=== PATIENT | female | born 1970 | race American Indian/Alaskan Native ===

== ENCOUNTER 2019-10-17 20:34 | Inpatient (IN) | payer OTHER ==
[2019-10-17] MEDS ORDERED: ALBUTEROL 2.5 MG/3 ML NEBU IH ONE (20:38)
[2019-10-17] MEDS ORDERED: MAGNESIUM SULFATE 2 GM/50 ML BAG IV ONE (20:38)
[2019-10-17] MEDS ORDERED: IPRATROPIUM 0.02% NEBU 2.5 ML IH ONE ×2 (20:38→22:56)
--- NOTE | 2019-10-17 20:50 | Emergency Department Report ---
HPI - General Time Seen by Provider: 10/17/19 20:36 - HPI HPI: Room 22 The patient is a 49-year-old female presenting with a chief complaint of shortness of breath. The patient states she has been "sick" since 10/12/2019. The patient states her symptoms include a dry cough and rhinorrhea. Patient denies sick contacts. The patient states she had worsening shortness of breath which prompted her to call EMS tonight. Per EMS the patient was hypoxic in the 50s on room air. EMS reports they administered albuterol 5 mg and site Medrol [address] patient on a nonrebreather as a patient refused CPAP. Upon arrival to the ED the patient was hypoxic in the 70s. The patient was placed on BiPAP with improvement of her SPO2 to greater than 90% Location: [See above] Duration: [See above] Quality: [See above] Severity: [See above] Timing: [See above] Context: [See above] Modifying factors: [See above] Associated signs and symptoms: [see above] ED Past Medical Hx - Past Medical History Hx Hypertension: Yes - Surgical History Past Surgical History?: No - Family History Family history: no significant - Social History Smoking Status: Never Smoker Substance Use Type: None ED Review of Systems ROS: Stated complaint: CLAUDINE Other details as noted in HPI Comment: Unobtainable due to pts medical conditions Physical Exam - Physical Exam Physical Exam: GENERAL: The patient is well-developed well-nourished morbidly obese female lying on stretcher with obvious increased work of breathing. [] HEENT: Normocephalic. Atraumatic. Extraocular motions are intact. Patient has moist mucous membranes. NECK: Supple. Trachea midline CHEST/LUNGS: Wheezing. There is increased work of breathing HEART/CARDIOVASCULAR: Regular. There is tachycardia. There is no gallop rub or murmur. ABDOMEN: Abdomen is soft, nontender. Patient has normal bowel sounds. There is no abdominal distention. SKIN: There is no rash. There is no edema. There is no diaphoresis. NEURO: The patient is awake, alert, and oriented. The patient is cooperative. The patient has normal speech MUSCULOSKELETAL: There is no evidence of acute injury. ED Course - Reevaluation(s) Reevaluation #1: 10/17/19 21:14 Patient improved dramatically on BiPAP with SPO2 95% ED Medical Decision Making - Lab Data Result diagrams: 10/17/19 20:57 10/17/19 20:57 Laboratory Tests 10/17/19 10/17/19 20:57 20:57 WBC 4.0 L RBC 4.65 Hgb 11.6 Hct 36.4 MCV 78 L MCH 25 L MCHC 32 RDW 24.7 H Plt Count 178 Sodium 139 Potassium 3.5 L Chloride 99.2 Carbon Dioxide 26 Anion Gap 17 BUN 14 Creatinine 0.6 L Estimated GFR > 60 BUN/Creatinine Ratio 23 Glucose 147 H Calcium 7.9 L Total Bilirubin 0.20 AST 57 H ALT 22 Alkaline Phosphatase 67 Total Creatine Kinase 857 H CK-MB (CK-2) 2.6 CK-MB (CK-2) Rel Index 0.3 Troponin T < 0.010 NT-Pro-B Natriuret Pep 317.6 Total Protein 7.1 Albumin 3.0 L Albumin/Globulin Ratio 0.7 Flu swab pending - EKG Data -: EKG Interpreted by Me EKG shows normal: sinus rhythm Rate: tachycardia (115 bpm) - EKG Data When compared to previous EKG there are: previous EKG unavailable Interpretation: nonspecific ST-T wave emelia (T-wave inversion in lead aVL) - Radiology Data Radiology results: report reviewed (chest x-ray), image reviewed (chest x-ray) interpreted by me: Chest [id number], CHF [address] [address] XRay Report Signed Patient: ADRIANNA KELLER MR# : [id number] : 1970 Acct:[id number] Age/Sex: 49 / F ADM Date: 10/17/19 Loc: ED Attending Dr: Ordering Physician: CHERELLE HERMAN MD Date of Service: 10/17/19 Procedure(s): XR chest 1V ap Accession Number(s): [id number] cc: CHERELLE HERMAN MD Fluoro Time In Minutes: CHEST 1 VIEW INDICATION: shortness of breath. COMPARISON: None. FINDINGS: Support devices: None. Heart: Enlarged. Lungs/Pleura: There are predominantly perihilar diffuse bilateral pulmonary opacities. There are small effusions. IMPRESSION: 1. Probable congestive heart failure. Correlate clinically. Signer Name: Nir Queen MD Signed: 10/17/2019 8:58 PM Workstation Name: [id number] Transcribed By: SW Dictated By: Nir Queen MD Electronically Authenticated By: Nir Queen MD Signed Date/Time: 10/17/192057 DD/ 56 TD/TT: - Differential Diagnosis pneumonia, influenza, pulmonary edema Critical Care Time: Yes Critical care time in (mins) excluding proc time.: 30 Critical care attestation.: If time is entered above; I have spent that time in minutes in the direct care of this critically ill patient, excluding procedure time. ED Disposition Clinical Impression: Respiratory failure, Shortness of breath, Hypoxia, Pulmonary edema, Cough Disposition: DC-09 OP ADMIT IP TO THIS HOSP Is pt being admited?: Yes Does the pt Need Aspirin: No Condition: Serious Instructions: Pulmonary Edema (ED) Time of Disposition: 22:22 (hospitalist notified (Dr Elias))
[2019-10-17] MEDS: LORazepam 2 MG/ML VIAL IV PRN (20:54)
--- NOTE | 2019-10-17 21:02 | XRay Report ---
CHEST 1 VIEW INDICATION: shortness of breath. COMPARISON: None. FINDINGS: Support devices: None. Heart: Enlarged. Lungs/Pleura: There are predominantly perihilar diffuse bilateral pulmonary opacities. There are smal l effusions. IMPRESSION: 1. Probable congestive heart failure. Correlate clinically. Signer Name: Nir Queen MD Signed: 10/17/2019 8:58 PM Workstation Name: [id number]
[2019-10-17] MEDS ORDERED: FUROSEMIDE 40 MG/4 ML INJ IV ONE (21:13)
[2019-10-17 21:43] LABS: Hematocrit 36.4 % (30.3-42.9); Hemoglobin 11.6 gm/dl (10.1-14.3); Mean Corpuscular HGB Conc 32 % (30-34); Mean Corpuscular Volume 78 fl (79-97); Platelet Count 178 K/mm3 (140-440); Red Blood Count 4.65 M/mm3 (3.65-5.03)
[2019-10-17 21:44] LABS: Red Cell Distribution Width 24.7 % (13.2-15.2)
[2019-10-17 22:00] LABS: Creatine Kinase MB 2.6 ng/mL (0.0-4.0)
[2019-10-17 22:02] LABS: Alanine Aminotransferase 22 units/L (7-56); BUN/Creatinine Ratio 23; Blood Urea Nitrogen 14 mg/dL (7-17); Calcium 7.9 mg/dL (8.4-10.2); Hemolysis Index 30
[2019-10-17] MEDS ORDERED: MAGNESIUM HYDROXIDE (MOM) ORAL LIQD UDC PO PRN (22:47)
[2019-10-17] MEDS ORDERED: ONDANSETRON 4 MG/2 ML INJ IV PRN (22:47)
[2019-10-17 23:37] LABS: Anisocytosis 2+; Basophils % (Manual) 0 % (0.0-1.8); Eosinophils % (Manual) 0 % (0.0-4.3); Hypochromasia 1+; Total Cells Counted 100
--- NOTE | 2019-10-18 00:23 | History and Physical Report ---
History of Present Illness Date of examination: 10/17/19 Date of admission: 10/17/19 22:47 Chief complaint: Cough and congestion History of present illness: 49-year-old -[place]i female who presents to the emergency room today with shortness of breath. She indicates that she has been sick a few days before [place] having progressive shortness of breath, and chest and nasal congestion. She denies any fever or chills, she denies any chest pain. She den ies any recent travel and no sick contacts. She denies nausea vomiting. EMS was called today because of worsening shortness of breath patient was found to have a O2 saturation in the 50s. She was given some nebulizing treatments and steroid however she refused the CPAP machine. Upon arrival in the emergency room oxygen saturation was found to be in the 70s. Patient was subsequently placed on BiPAP with significant improvement in her oxygen saturation. Work-up in the emergency room however reveals that patient has pulmonary edema. Past History Past Medical History: hypertension, other (Morbid obesity, lymphedema) Past Surgical History: Other (Right wrist surgery in 1994) Social history: no significant social history Family history: cancer (Pancreatic cancer runs in the family), diabetes (Mother had diabetes mellitus, daughter also had diabetes mellitus) Medications and Allergies Allergies Allergy/AdvReac Type Severity Reaction Status Date / Time No Known Allergies Allergy Verified 10/17/19 20:40 Home Medications Medication Instructions Recorded Confirmed Last Taken Type Aspirin 325 mg PO DAILY 10/17/19 10/17/19 Unknown History Metoprolol 50 mg PO BID 10/17/19 10/17/19 Unknown History amLODIPine 10 mg PO DAILY 10/17/19 10/17/19 Unknown History Active Meds: Active Medications Albuterol (Proventil) 2.5 mg IH Q3HRT PRN PRN Reason: Shortness Of Breath Furosemide (Lasix) 40 mg IV BID@0600,1800 EDI Heparin Sodium (Porcine) (Heparin) 5,000 unit SUB-Q Q8HR EDI Lorazepam (Ativan) 1 mg IV ONCE PRN PRN Reason: Anxiety Last Admin: 10/17/19 20:54 Dose: 1 mg Documented by: Magnesium Hydroxide (Milk Of Magnesia) 30 ml PO Q4H PRN PRN Reason: Constipation Morphine Sulfate (Morphine) 2 mg IV Q4H PRN PRN Reason: Pain, Moderate (4-6) Ondansetron HCl (Zofran) 4 mg IV Q8H PRN PRN Reason: Nausea And Vomiting Sodium Chloride (Sodium Chloride Flush Syringe 10 Ml) 10 ml IV BID EDI Sodium Chloride (Sodium Chloride Flush Syringe 10 Ml) 10 ml IV PRN PRN PRN Reason: LINE FLUSH Review of Systems Respiratory: cough, shortness of breath Exam - Constitutional Vitals: Temp Pulse Resp BP Pulse Ox 98.9 F 100 H 24 122/64 95 10/17/19 20:57 10/17/19 23:28 10/17/19 23:28 10/17/19 23:28 10/17/19 23:28 General appearance: Present: no acute distress, well-nourished, obese - EENT Eyes: Present: PERRL, EOM intact ENT: hearing intact, clear oral mucosa, dentition normal - Neck Neck: Present: supple, normal ROM - Respiratory Respiratory effort: normal Respiratory: bilateral: rales - Cardiovascular Rhythm: regular Heart Sounds: Present: S1 & S2 - Extremities Extremities: no ischemia, pulses intact, pulses symmetrical, No edema, Full ROM Peripheral Pulses: within normal limits - Abdominal General gastrointestinal: Present: soft, non-tender, non-distended - Integumentary Integumentary: Present: clear, warm, dry - Musculoskeletal Musculoskeletal: strength equal bilaterally, right sided weakness - Psychiatric Psychiatric: appropriate mood/affect, intact judgment & insight, cooperative - Neurologic Neurologic: CNII-XII intact, moves all extremities Results - Labs CBC & Chem 7: 10/18/19 05:21 10/18/19 05:21 Labs: Abnormal lab results 10/17/19 10/17/19 10/17/19 Range/Units 20:57 20:57 Unknown WBC 4.0 L (4.5-11.0) K/mm3 MCV 78 L (79-97) fl MCH 25 L (28-32) pg RDW 24.7 H (13.2-15.2) % Seg Neuts % (Manual) 77.0 H (40.0-70.0) % Monocytes % (Manual) 9.0 H (0.0-7.3) % Lymphocytes # (Manual) 0.6 L (1.2-5.4) K/mm3 Potassium 3.5 L (3.6-5.0) mmol/L Creatinine 0.6 L (0.7-1.2) mg/dL Glucose 147 H (65-100) mg/dL Calcium 7.9 L (8.4-10.2) mg/dL AST 57 H (5-40) units/L Total Creatine Kinase 857 H (30-135) units/L Albumin 3.0 L (3.9-5) g/dL Influenza A (Rapid) Positive A (Negative) Assessment and Plan - Patient Problems (1) Pulmonary edema Current Visit: Yes Status: Acute Plan to address problem: Patient placed on diuretics. We will monitor inputs and outputs and also monitor daily weight. We will schedule patient for echocardiogram. We also request cardiology evaluation for possible new onset CHF. (2) Hypoxia Current Visit: Yes Status: Acute Plan to address problem: We will keep oxygen saturation greater or equal to 92%. Patient currently on BiPAP. (3) Respiratory failure Current Visit: Yes Status: Acute Plan to address problem: This is secondary to pulmonary edema. Patient will be closely monitored in the critical care unit. (4) DVT prophylaxis Current Visit: Yes Status: Acute Plan to address problem: Patient placed on subcutaneous heparin. (5) Full code status Current Visit: Yes Status: Acute
[2019-10-18 05:48] LABS: Hematocrit 39.8 % (30.3-42.9); Hemoglobin 12.6 gm/dl (10.1-14.3); Lymphocytes # (Auto) 0.4 K/mm3 (1.2-5.4); Lymphocytes % (Auto) 12.5 % (13.4-35.0); Mean Corpuscular HGB Conc 32 % (30-34); Mean Corpuscular Volume 80 fl (79-97); Monocytes # (Auto) 0.3 K/mm3 (0.0-0.8); Monocytes % (Auto) 7.9 % (0.0-7.3); Platelet Count 175 K/mm3 (140-440); Red Blood Count 5.01 M/mm3 (3.65-5.03)
[2019-10-18 05:50] LABS: Red Cell Distribution Width 24.3 % (13.2-15.2)
[2019-10-18] MEDS ORDERED: HEPARIN 5,000 UNIT/1 ML VIAL ONE ×3 (05:53→23:13)
[2019-10-18] MEDS ORDERED: FUROSEMIDE 40 MG/4 ML INJ ONE ×2 (05:53→19:19)
[2019-10-18] MEDS: HEPARIN 5,000 UNIT/1 ML VIAL SUB-Q SCH ×2 (06:00→14:05)
[2019-10-18] MEDS: FUROSEMIDE 40 MG/4 ML INJ IV SCH ×3 (06:00→19:22)
[2019-10-18 06:11] LABS: BUN/Creatinine Ratio 23; Blood Urea Nitrogen 16 mg/dL (7-17); Calcium 8.3 mg/dL (8.4-10.2); Hemolysis Index 15
[2019-10-18] MEDS ORDERED: ALBUTEROL 2.5 MG/3 ML NEBU IH ONE (08:45)
--- NOTE | 2019-10-18 08:57 | Progress Note ---
Assessment and Plan Assessment and plan: Patient is a 49 yo woman with a history of severe obesity BMI 93.6 (579 lbs), hypertension, lymphedema, functional quadriplegia and DEAN non compliant with CPAP who presents to [facility] ED with SOB and found to be hypoxic with pulse ox in the 50s. She was treated with BIPAP. * pCXR shows Probable congestive heart failure Acute hypoxic respiratory failure: treat with O2 via NIPPV, close to being intubated Sepsis Influenza A pneumonia positive: start treatment with Tamiflu, consulted ID, isolation Acute diastolic heart failure suspected: diuresis with iv lasix, consult Cardiology Extreme Obesity, BMI 93.6: supportive care, consult Choker Setter DVT ppx sq heparin full code History Interval history: Patient was seen and examined. Follow-up on current diagnosis of respiratory failure. Overnight uneventful as no events directly reported to me. Patient denies any chest pain, nausea/vomiting or severe headaches. Imaging, nursing note, chart, labs and old chart reviewed. Discussed with patient. Hospitalist Physical - Physical exam Narrative exam: Gen: ill appearing, bmi 93.6 Awake, Alert, Orientated HEENT: NCAT, EOMI, PERRL, OP Clear Neck: supple, no adenopathy, no thyromegaly, equiv JVD CVS/Heart: RRR, normal S1S2, pulses present bilaterally Chest/Lungs: diminished bs bilateral Symmetrical chest expansion, good air entry bilaterally GI/Abdomen: soft, NTND, good bowel sounds, no guarding or rebound /Bladder: no suprapubic tenderness, no CVA or paraspinal tenderness Extermity/Skin: ble edema MSK: FROM x 4 Neuro: CN 2-12 grossly intact, no new focal deficits Psych: calm - Constitutional Vitals: Temp Pulse Resp BP Pulse Ox 98.9 F 97 H 29 H 124/66 98 10/17/19 20:57 10/18/19 08:20 10/18/19 08:20 10/18/19 08:20 10/18/19 08:20 General appearance: Present: well-nourished, obese. Absent: no acute distress Results - Labs CBC & Chem 7: 10/18/19 05:21 10/18/19 05:21 Labs: Laboratory Last Values WBC 3.3 K/mm3 (4.5-11.0) L 10/18/19 05:21 RBC 5.01 M/mm3 (3.65-5.03) 10/18/19 05:21 Hgb 12.6 gm/dl (10.1-14.3) 10/18/19 05:21 Hct 39.8 % (30.3-42.9) 10/18/19 05:21 MCV 80 fl (79-97) 10/18/19 05:21 MCH 25 pg (28-32) L 10/18/19 05:21 MCHC 32 % (30-34) 10/18/19 05:21 RDW 24.3 % (13.2-15.2) H 10/18/19 05:21 Plt Count 175 K/mm3 (140-440) 10/18/19 05:21 Lymph % (Auto) 12.5 % (13.4-35.0) L 10/18/19 05:21 [place] % (Auto) 7.9 % (0.0-7.3) H 10/18/19 05:21 Eos % (Auto) 0.0 % (0.0-4.3) 10/18/19 05:21 Baso % (Auto) 1.0 % (0.0-1.8) 10/18/19 05:21 Lymph # 0.4 K/mm3 (1.2-5.4) L 10/18/19 05:21 [place] # 0.3 K/mm3 (0.0-0.8) 10/18/19 05:21 Eos # 0.0 K/mm3 (0.0-0.4) 10/18/19 05:21 Baso # 0.0 K/mm3 (0.0-0.1) 10/18/19 05:21 Add Manual Diff Complete 10/17/19 20:57 Total Counted 100 10/17/19 20:57 Seg Neutrophils % 78.6 % (40.0-70.0) H 10/18/19 05:21 Seg Neuts % (Manual) 77.0 % (40.0-70.0) H 10/17/19 20:57 Band Neutrophils % 0 % 10/17/19 20:57 Lymphocytes % (Manual) 14.0 % (13.4-35.0) 10/17/19 20:57 Reactive Lymphs % (Man) 0 % 10/17/19 20:57 Monocytes % (Manual) 9.0 % (0.0-7.3) H 10/17/19 20:57 Eosinophils % (Manual) 0 % (0.0-4.3) 10/17/19 20:57 Basophils % (Manual) 0 % (0.0-1.8) 10/17/19 20:57 Metamyelocytes % 0 % 10/17/19 20:57 Myelocytes % 0 % 10/17/19 20:57 Promyelocytes % 0 % 10/17/19 20:57 Blast Cells % 0 % 10/17/19 20:57 Nucleated RBC % Not Reportable 10/17/19 20:57 Seg Neutrophils # 2.6 K/mm3 (1.8-7.7) 10/18/19 05:21 Seg Neutrophils # Man 3.1 K/mm3 (1.8-7.7) 10/17/19 20:57 Band Neutrophils # 0.0 K/mm3 10/17/19 20:57 Lymphocytes # (Manual) 0.6 K/mm3 (1.2-5.4) L 10/17/19 20:57 Abs React Lymphs (Man) 0.0 K/mm3 10/17/19 20:57 Monocytes # (Manual) 0.4 K/mm3 (0.0-0.8) 10/17/19 20:57 Eosinophils # (Manual) 0.0 K/mm3 (0.0-0.4) 10/17/19 20:57 Basophils # (Manual) 0.0 K/mm3 (0.0-0.1) 10/17/19 20:57 Metamyelocytes # 0.0 K/mm3 10/17/19 20:57 Myelocytes # 0.0 K/mm3 10/17/19 20:57 Promyelocytes # 0.0 K/mm3 10/17/19 20:57 Blast Cells # 0.0 K/mm3 10/17/19 20:57 WBC Morphology Not Reportable 10/17/19 20:57 Hypersegmented Neuts Not Reportable 10/17/19 20:57 Hyposegmented Neuts Not Reportable 10/17/19 20:57 Hypogranular Neuts Not Reportable 10/17/19 20:57 Smudge Cells Not Reportable 10/17/19 20:57 Toxic Granulation Not Reportable 10/17/19 20:57 Toxic Vacuolation Not Reportable 10/17/19 20:57 Dohle Bodies Not Reportable 10/17/19 20:57 Pelger-Huet Anomaly Not Reportable 10/17/19 20:57 Krista Rods Not Reportable 10/17/19 20:57 Platelet Estimate Not Reportable 10/17/19 20:57 Clumped Platelets Not Reportable 10/17/19 20:57 Plt Clumps, EDTA Not Reportable 10/17/19 20:57 Large Platelets Not Reportable 10/17/19 20:57 Giant Platelets Not Reportable 10/17/19 20:57 Platelet Satelliting Not Reportable 10/17/19 20:57 Plt Morphology Comment Not Reportable 10/17/19 20:57 RBC Morphology Not Reportable 10/17/19 20:57 Dimorphic RBCs Not Reportable 10/17/19 20:57 Polychromasia Not Reportable 10/17/19 20:57 Hypochromasia 1+ 10/17/19 20:57 Poikilocytosis Not Reportable 10/17/19 20:57 Anisocytosis 2+ 10/17/19 20:57 Microcytosis Not Reportable 10/17/19 20:57 Macrocytosis Not Reportable 10/17/19 20:57 Spherocytes Not Reportable 10/17/19 20:57 Pappenheimer Bodies Not Reportable 10/17/19 20:57 Sickle Cells Not Reportable 10/17/19 20:57 Target Cells Not Reportable 10/17/19 20:57 Tear Drop Cells Not Reportable 10/17/19 20:57 Ovalocytes Not Reportable 10/17/19 20:57 Helmet Cells Not Reportable 10/17/19 20:57 [place] Bodies Not Reportable 10/17/19 20:57 [place] Rings Not Reportable 10/17/19 20:57 James Cells Not Reportable 10/17/19 20:57 Bite Cells Not Reportable 10/17/19 20:57 Crenated Cell Not Reportable 10/17/19 20:57 Elliptocytes Not Reportable 10/17/19 20:57 Acanthocytes (Spur) Not Reportable 10/17/19 20:57 Rouleaux Not Reportable 10/17/19 20:57 Hemoglobin C Crystals Not Reportable 10/17/19 20:57 Schistocytes Not Reportable 10/17/19 20:57 Malaria parasites Not Reportable 10/17/19 20:57 Alejandro Bodies Not Reportable 10/17/19 20:57 Hem Pathologist Commnt No 10/17/19 20:57 Sodium 144 mmol/L (137-145) 10/18/19 05:21 Potassium 4.2 mmol/L (3.6-5.0) 10/18/19 05:21 Chloride 99.4 mmol/L (98-107) 10/18/19 05:21 Carbon Dioxide 28 mmol/L (22-30) 10/18/19 05:21 Anion Gap 21 mmol/L 10/18/19 05:21 BUN 16 mg/dL (7-17) 10/18/19 05:21 Creatinine 0.7 mg/dL (0.7-1.2) 10/18/19 05:21 Estimated GFR > 60 ml/min 10/18/19 05:21 BUN/Creatinine Ratio 23 % 10/18/19 05:21 Glucose 167 mg/dL (65-100) H 10/18/19 05:21 Calcium 8.3 mg/dL (8.4-10.2) L 10/18/19 05:21 Total Bilirubin 0.20 mg/dL (0.1-1.2) 10/17/19 20:57 AST 57 units/L (5-40) H 10/17/19 20:57 ALT 22 units/L (7-56) 10/17/19 20:57 Alkaline Phosphatase 67 units/L (35-129) 10/17/19 20:57 Total Creatine Kinase 857 units/L (30-135) H 10/17/19 20:57 CK-MB (CK-2) 2.6 ng/mL (0.0-4.0) 10/17/19 20:57 CK-MB (CK-2) Rel Index 0.3 (0-4) 10/17/19 20:57 Troponin T < 0.010 ng/mL (0.00-0.029) 10/17/19 20:57 NT-Pro-B Natriuret Pep 317.6 pg/mL (0-450) 10/17/19 20:57 Total Protein 7.1 g/dL (6.3-8.2) 10/17/19 20:57 Albumin 3.0 g/dL (3.9-5) L 10/17/19 20:57 Albumin/Globulin Ratio 0.7 % 10/17/19 20:57 Influenza A (Rapid) Positive (Negative) A 10/17/19 Unknown Influenza B (Rapid) Negative (Negative) 10/17/19 Unknown Active Medications - Current Medications Current Medications: Generic Name Dose Route Start Last Admin Trade Name Freq PRN Reason Stop Dose Admin Albuterol 2.5 mg 10/17/19 22:47 Proventil IH Q3HRT PRN Shortness Of Breath Amlodipine Besylate 10 mg 10/18/19 10:00 Amlodipine PO DAILY [facility] Aspirin 325 mg 10/18/19 10:00 Aspirin PO DAILY [facility] Furosemide 40 mg 10/18/19 06:00 10/18/19 06:00 Lasix IV 40 mg BID@0600,1800 EDI Administration Heparin Sodium (Porcine) 5,000 unit 10/18/19 06:00 10/18/19 06:00 Heparin SUB-Q 5,000 unit Q8HR EDI Administration Lorazepam 1 mg 10/17/19 20:39 10/17/19 20:54 Ativan IV 1 mg ONCE PRN Administration Anxiety Magnesium Hydroxide 30 ml 10/17/19 22:47 Milk Of Magnesia PO Q4H PRN Constipation Metoprolol Tartrate 50 mg 10/18/19 10:00 Metoprolol PO BID [facility] Morphine Sulfate 2 mg 10/17/19 22:47 Morphine IV Q4H PRN Pain, Moderate (4-6) Ondansetron HCl 4 mg 10/17/19 22:47 Zofran IV Q8H PRN Nausea And Vomiting Sodium Chloride 10 ml 10/18/19 10:00 Sodium Chloride Flush Syringe 10 Ml IV BID EDI Sodium Chloride 10 ml 10/17/19 22:47 Sodium Chloride Flush Syringe 10 Ml IV PRN PRN LINE FLUSH
[2019-10-18] MEDS: ALBUTEROL 2.5 MG/3 ML NEBU IH PRN (09:23)
[2019-10-18] MEDS ORDERED: OSELTAMIVIR 75 MG CAP PO SCH (10:00)
[2019-10-18] MEDS ORDERED: ASPIRIN 325 MG TAB ONE (11:14)
[2019-10-18] MEDS ORDERED: METOPROLOL TARTRATE 50 MG TAB ONE ×2 (11:15→23:13)
[2019-10-18] MEDS ORDERED: amLODIPine 10 MG TAB ONE (11:15)
[2019-10-18] MEDS: METOPROLOL TARTRATE 50 MG TAB PO SCH (11:49)
[2019-10-18] MEDS: ASPIRIN 325 MG TAB PO SCH (11:49)
[2019-10-18] MEDS: OSELTAMIVIR 75 MG CAP PO SCH (11:50)
[2019-10-18] MEDS: amLODIPine 10 MG TAB PO SCH (11:50)
[2019-10-18 12:04] LABS: ABG Base Excess 4.5 mmol/L (-2.0-3.0); ABG HCO3 30.2 mmol/L (20.0-26.0); ABG Methemoglobin 0.4 % (0.0-1.5); ABG Oxygen Saturation 98.5 % (95.0-99.0); ABG PCO2 50.6 mm Hg; ABG PH 7.394 pH Units (7.350-7.450); ABG PO2 131.3 mm Hg (80.0-90.0)
--- NOTE | 2019-10-18 12:54 | Consultation ---
History of Present Illness Consult date: 10/18/19 Requesting physician: MAHENDRA ROWLAND Reason for consult: hypoxemia, other (pulmonary edema, extreme obesity) History of present illness: 49-year-old -[place] female who presents to the emergency room today with shortness of breath. She indicates that she has been sick a few days before [place] having progressive shortness of breath, and chest and nasal congestion. She denies any fever or chills, she denies any chest pain. She denies any recent travel and no sick contacts. She denies nausea vomiting. EMS was called today because of worsening shortness of breath patient was found to have a O2 saturation in the 50s. She was given some nebulizing treatments and steroid however she refused the CPAP machine. Upon arrival in the emergency room oxygen saturation was found to be in the 70s. Patient was subsequently placed on BiPAP with significant improvement in her oxygen saturation. She remains BIPAP dependant and I have been consulted for critical care management. Patient was seen and examined. Vitals, labs, medications, chart and imaging were reviewed. She is resting in bed on NIPPV Past History Past Medical History: hypertension, other (Morbid obesity, lymphedema) Past Surgical History: Other (Right wrist surgery in 1994) Social history: no significant social history Family history: cancer (Pancreatic cancer runs in the family), diabetes (Mother had diabetes mellitus, daughter also had diabetes mellitus) Medications and Allergies Allergies Allergy/AdvReac Type Severity Reaction Status Date / Time No Known Allergies Allergy Verified 10/17/19 20:40 Home Medications Medication Instructions Recorded Confirmed Last Taken Type Aspirin 325 mg PO DAILY 10/17/19 10/17/19 Unknown History Metoprolol 50 mg PO BID 10/17/19 10/17/19 Unknown History amLODIPine 10 mg PO DAILY 10/17/19 10/17/19 Unknown History Active Meds: Active Medications Albuterol (Proventil) 2.5 mg IH Q3HRT PRN PRN Reason: Shortness Of Breath Last Admin: 10/18/19 09:23 Dose: 2.5 mg Documented by: Amlodipine Besylate (Amlodipine) 10 mg PO DAILY [facility] Last Admin: 10/18/19 11:50 Dose: 10 mg Documented by: Aspirin (Aspirin) 325 mg PO DAILY [facility] Last Admin: 10/18/19 11:49 Dose: 325 mg Documented by: Furosemide (Lasix) 40 mg IV BID@0600,1800 [facility] Last Admin: 10/18/19 06:00 Dose: 40 mg Documented by: Heparin Sodium (Porcine) (Heparin) 5,000 unit SUB-Q Q8HR [facility] Last Admin: 10/18/19 06:00 Dose: 5,000 unit Documented by: Lorazepam (Ativan) 1 mg IV ONCE PRN PRN Reason: Anxiety Last Admin: 10/17/19 20:54 Dose: 1 mg Documented by: Magnesium Hydroxide (Milk Of Magnesia) 30 ml PO Q4H PRN PRN Reason: Constipation Metoprolol Tartrate (Metoprolol) 50 mg PO BID [facility] Last Admin: 10/18/19 11:49 Dose: 50 mg Documented by: Morphine Sulfate (Morphine) 2 mg IV Q4H PRN PRN Reason: Pain, Moderate (4-6) Ondansetron HCl (Zofran) 4 mg IV Q8H PRN PRN Reason: Nausea And Vomiting Oseltamivir Phosphate (Tamiflu) 75 mg PO 1130,2330 [facility] Stop: 10/22/19 23:31 Last Admin: 10/18/19 11:50 Dose: 75 mg Documented by: Sodium Chloride (Sodium Chloride Flush Syringe 10 Ml) 10 ml IV BID [facility] Last Admin: 10/18/19 11:51 Dose: 10 ml Documented by: Sodium Chloride (Sodium Chloride Flush Syringe 10 Ml) 10 ml IV PRN PRN PRN Reason: LINE FLUSH Physical Examination Vital signs: Vital Signs Pulse Resp BP Pulse Ox 118 H 12 119/62 93 10/17/19 20:56 10/17/19 20:56 10/17/19 20:56 10/17/19 20:56 Gen: ill appearing, bmi 93.6 Awake, Alert, Orientated on BIPAP 07/08, back up rate of 20, FIO2 100% HEENT: NCAT, EOMI, PERRL, OP Clear Neck: supple, no adenopathy, no thyromegaly, short and large neck CVS/Heart: RRR, normal S1S2, pulses present bilaterally Chest/Lungs: diminished bs bilateral Symmetrical chest expansion, good air entry bilaterally GI/Abdomen: soft, NTND, good bowel sounds, no guarding or rebound /Bladder: no suprapubic tenderness Extermity/Skin: Trace edema bilateral lower extremities MSK: FROM x 4 Neuro: CN 2-12 grossly intact, no new focal deficits Psych: Anxious Results - Laboratory Findings CBC and BMP: 10/18/19 05:21 10/18/19 05:21 ABG POC ABG pH 7.419 (7.35-7.45) 10/18/19 11:28 ABG pH 7.394 pH Units (7.350-7.450) 10/18/19 09:19 POC ABG pCO2 53.4 (35-45) H 10/18/19 11:28 ABG pCO2 50.6 mm Hg 10/18/19 09:19 POC ABG pO2 70 (80-105) L 10/18/19 11:28 ABG pO2 131.3 mm Hg (80.0-90.0) H 10/18/19 09:19 POC ABG HCO3 34.6 (22-26 mml/L) 10/18/19 11:28 POC ABG Total CO2 36 (23-27mmol/L) 10/18/19 11:28 POC ABG O2 Sat 94 10/18/19 11:28 ABG O2 Saturation 98.5 % (95.0-99.0) 10/18/19 09:19 Abnormal lab findings: Abnormal Labs 10/17/19 10/17/19 10/17/19 20:57 20:57 Unknown WBC 4.0 L MCV 78 L MCH 25 L RDW 24.7 H Lymph % (Auto) [place] % (Auto) Lymph # Seg Neutrophils % Seg Neuts % (Manual) 77.0 H Monocytes % (Manual) 9.0 H Lymphocytes # (Manual) 0.6 L POC ABG pCO2 POC ABG pO2 ABG pO2 ABG HCO3 ABG Base Excess ABG Hemoglobin Potassium 3.5 L Creatinine 0.6 L Glucose 147 H Calcium 7.9 L AST 57 H Total Creatine Kinase 857 H Albumin 3.0 L Influenza A (Rapid) Positive A 10/18/19 10/18/19 10/18/19 05:21 05:21 09:19 WBC 3.3 L MCV MCH 25 L RDW 24.3 H Lymph % (Auto) 12.5 L [place] % (Auto) 7.9 H Lymph # 0.4 L Seg Neutrophils % 78.6 H Seg Neuts % (Manual) Monocytes % (Manual) Lymphocytes # (Manual) POC ABG pCO2 POC ABG pO2 ABG pO2 131.3 H ABG HCO3 30.2 H ABG Base Excess 4.5 H ABG Hemoglobin 10.7 L Potassium Creatinine Glucose 167 H Calcium 8.3 L AST Total Creatine Kinase Albumin Influenza A (Rapid) 10/18/19 11:28 WBC MCV MCH RDW Lymph % (Auto) [place] % (Auto) Lymph # Seg Neutrophils % Seg Neuts % (Manual) Monocytes % (Manual) Lymphocytes # (Manual) POC ABG pCO2 53.4 H POC ABG pO2 70 L ABG pO2 ABG HCO3 ABG Base Excess ABG Hemoglobin Potassium Creatinine Glucose Calcium AST Total Creatine Kinase Albumin Influenza A (Rapid) - Diagnostic Findings Chest x-ray: image reviewed (Bat wing distribution of alveola infiltrates, left lower lobe infiltrate ) Assessment and Plan Acute hypoxic-hypercapnic respiratory failure Bilateral alveolar infiltrates- possible heart failure-systolic Sepsis Influenza A pneumonia positive Acute diastolic heart failure suspected Extreme Obesity, BMI 93.6 Probable DEAN with OHS Functional quadriplegia h/o HTN -NIPPV continuous for the next 24 hours, breaks fro meals -Aspiration precautions, HOB>40 degrees -Wean FIO2 for O2 sat s88-90% follow up ABG at 6pm -Oxygen restrictive strategies -CXR in 48 hours once volume status is optimized -Limit narcotic analgesia and benzodiazepines, to avoid respiratory depression - Anti-virals for Influenza infection -Bronchodilators per protocol -Place on airborne isolation -VTE prophylaxis -Stress ulcer prophylaxis - Accuchecks with glycemic control for SSI (While critically ill target blood glucose of 140-180 mg/dL; avoid hypoglycemia) - mobility protocol for pressure ulcer prevention - Monitor hemodynamics closely -Monitor electrolyte profile closely and replete as indicated -Chronic home medications, resume as clinically indicated -Get transthoracic echocardiogram to evaluate LVEF and for pulmonary HTN -Gentle diuresis while monitoring renal function -Blanchard catheter in this critically ill patient, with poor urine output, requiring accurate intake and output monitoring. She acutely de-saturates with minimal movement -PT/OT -Weight loss and life style modifications on discharge. May need surgical bariatric intervention -Out patient evaluation for sleep apnea Discussed with RT and RN Discussed with the patient, updated her Also updated her sister who was at the bedside CONDITION: CRITICAL PROGNOSIS: GUARDED CODE STATUS: FULL CODE The high probability of a clinically significant, sudden or life-threatening deterioration of the [respiratory, cardiovascular,] system(s) required my full and direct attention, intervention and personal management. The aggregate critical care time was [45] minutes without overlap. Time includes spent on; [x] Data Review and interpretation [x] Patient assessment and monitoring of vital signs [x] Documentation [x] Medication orders and management
[2019-10-18] MEDS ORDERED: LORazepam 2 MG/ML VIAL ONE (23:12)
[2019-10-19] MEDS: LORazepam 2 MG/ML VIAL IV PRN ×2 (00:26→17:00)
[2019-10-19] MEDS: METOPROLOL TARTRATE 50 MG TAB PO SCH ×3 (00:26→22:44)
[2019-10-19] MEDS: HEPARIN 5,000 UNIT/1 ML VIAL SUB-Q SCH ×4 (00:26→22:41)
[2019-10-19] MEDS: OSELTAMIVIR 75 MG CAP PO SCH ×3 (00:26→22:42)
[2019-10-19] MEDS ORDERED: HEPARIN 5,000 UNIT/1 ML VIAL ONE ×3 (07:02→15:16)
[2019-10-19] MEDS ORDERED: FUROSEMIDE 40 MG/4 ML INJ ONE (07:02)
[2019-10-19] MEDS ORDERED: FUROSEMIDE 20 MG/2 ML INJ ONE (09:03)
[2019-10-19] MEDS: FUROSEMIDE 40 MG/4 ML INJ IV SCH ×2 (09:15→19:00)
[2019-10-19] MEDS ORDERED: ASPIRIN 325 MG TAB ONE (09:58)
[2019-10-19] MEDS ORDERED: amLODIPine 10 MG TAB ONE (09:58)
[2019-10-19] MEDS ORDERED: METOPROLOL TARTRATE 50 MG TAB ONE (09:58)
[2019-10-19] MEDS: amLODIPine 10 MG TAB PO SCH (10:14)
[2019-10-19] MEDS: ASPIRIN 325 MG TAB PO SCH (10:14)
--- NOTE | 2019-10-19 10:52 | Progress Note ---
Assessment and Plan Acute hypoxic-hypercapnic respiratory failure Bilateral alveolar infiltrates- possible heart failure-systolic Sepsis Influenza A pneumonia positive Acute diastolic heart failure suspected Extreme Obesity, BMI 93.6 Probable DEAN with OHS Functional quadriplegia h/o HTN -NIPPV continuous -Aspiration precautions, HOB>40 degrees -Wean FIO2 for O2 sat s88-90% follow up ABG at 6pm -Oxygen restrictive strategies -CXR in 48 hours once volume status is optimized -Limit narcotic analgesia and benzodiazepines, to avoid respiratory depression - Anti-virals for Influenza infection -Bronchodilators per protocol -Place on airborne isolation -VTE prophylaxis -Stress ulcer prophylaxis - Accuchecks with glycemic control for SSI (While critically ill target blood glucose of 140-180 mg/dL; avoid hypoglycemia) - mobility protocol for pressure ulcer prevention - Monitor hemodynamics closely -Monitor electrolyte profile closely and replete as indicated -Chronic home medications, resume as clinically indicated -Follow up transthoracic echocardiogram to evaluate LVEF and for pulmonary HTN -Gentle diuresis while monitoring renal function -Blanchard catheter in this critically ill patient, with poor urine output, requir ing accurate intake and output monitoring. She acutely de-saturates with minimal movement -PT/OT -Weight loss and life style modifications on discharge. May need surgical bariatric intervention -Out patient evaluation for sleep apnea Discussed with RT and RN Discussed with the patient, updated her Also updated her sister who was at the bedside CONDITION: CRITICAL PROGNOSIS: GUARDED CODE STATUS: FULL CODE The high probability of a clinically significant, sudden or life-threatening deterioration of the [respiratory, cardiovascular,] system(s) required my full and direct attention, intervention and personal management. The aggregate critical care time was [35] minutes without overlap. Time includes spent on; [x] Data Review and interpretation [x] Patient assessment and monitoring of vital signs [x] Documentation [x] Medication orders and management Subjective Date of service: 10/19/19 Interval history: Patient is seen today for: acute hypoxemic-hypercapnic respiratory failure: influenza infections; extreme obesity Seen and examined at bedside; 24hour events reviewed; nursing and respiratory care staff consulted; no adverse overnight events reported to me; remains on NIPPV, on going fevers, shortness of breath and cough. No chest pain. Objective - Exam Narrative Exam: Physical Exam: Vitals reviewed Constitutional:on BIPAP via ful face mask, Morbidly obese Head, Ears, Nose: Normocephalic, atraumatic. External ears, nose normal Eyes: Conjunctivae/corneas clear. No icterus. No ptosis. Neck: intubated Oral: intubated Cardiovascular: S1, S2 normal. Respiratory: Good air entry, clear to auscultation bilaterally GI: Soft, non-tender; bowel sounds normal. No peritoneal signs Musculoskeletal: No pedal edema, no cyanosis. Skin: No rash or abscess. No wounds Hem/Lymphatic: No palpable cervical or supraclavicular nodes. No lymphangitis Psych: no agitation Neurological: awake, alert, oriented x3 Vital Signs - 12hr 10/18/19 10/19/19 10/19/19 23:00 00:01 00:18 Pulse Rate 104 H 94 H Respiratory 12 31 H Rate Blood Pressure 122/70 122/70 126/63 O2 Sat by Pulse 96 94 Oximetry 10/19/19 10/19/19 10/19/19 01:00 02:01 03:01 Pulse Rate 86 86 91 H Respiratory 25 H 32 H 22 Rate Blood Pressure 123/78 125/49 136/48 O2 Sat by Pulse 97 93 93 Oximetry 10/19/19 10/19/19 10/19/19 04:00 04:20 05:00 Pulse Rate 78 82 82 Respiratory 24 26 H 23 Rate Blood Pressure 114/57 114/57 106/62 O2 Sat by Pulse 95 93 94 Oximetry 10/19/19 10/19/19 10/19/19 06:00 07:00 08:00 Pulse Rate 80 82 82 Respiratory 22 27 H 27 H Rate Blood Pressure 127/58 119/65 119/65 O2 Sat by Pulse 94 94 96 Oximetry CBC and BMP: 10/27/19 05:40 10/31/19 08:02 ABG, PT/INR, D-dimer: ABG POC ABG pH 7.487 (7.35-7.45) H 10/19/19 06:39 ABG pH 7.394 pH Units (7.350-7.450) 10/18/19 09:19 POC ABG pCO2 51.7 (35-45) H 10/19/19 06:39 ABG pCO2 50.6 mm Hg 10/18/19 09:19 POC ABG pO2 71 (80-105) L 10/19/19 06:39 ABG pO2 131.3 mm Hg (80.0-90.0) H 10/18/19 09:19 POC ABG HCO3 39.1 (22-26 mml/L) 10/19/19 06:39 POC ABG Total CO2 41 (23-27mmol/L) 10/19/19 06:39 POC ABG O2 Sat 95 10/19/19 06:39 ABG O2 Saturation 98.5 % (95.0-99.0) 10/18/19 09:19 Abnormal lab findings: Abnormal Labs 10/17/19 10/17/19 10/17/19 20:57 20:57 Unknown WBC 4.0 L MCV 78 L MCH 25 L RDW 24.7 H Lymph % (Auto) [place] % (Auto) Lymph # Seg Neutrophils % Seg Neuts % (Manual) 77.0 H Monocytes % (Manual) 9.0 H Lymphocytes # (Manual) 0.6 L POC ABG pH POC ABG pCO2 POC ABG pO2 ABG pO2 ABG HCO3 ABG Base Excess ABG Hemoglobin Potassium 3.5 L Creatinine 0.6 L Glucose 147 H Calcium 7.9 L AST 57 H Total Creatine Kinase 857 H Albumin 3.0 L Influenza A (Rapid) Positive A 10/18/19 10/18/19 10/18/19 05:21 05:21 09:19 WBC 3.3 L MCV MCH 25 L RDW 24.3 H Lymph % (Auto) 12.5 L [place] % (Auto) 7.9 H Lymph # 0.4 L Seg Neutrophils % 78.6 H Seg Neuts % (Manual) Monocytes % (Manual) Lymphocytes # (Manual) POC ABG pH POC ABG pCO2 POC ABG pO2 ABG pO2 131.3 H ABG HCO3 30.2 H ABG Base Excess 4.5 H ABG Hemoglobin 10.7 L Potassium Creatinine Glucose 167 H Calcium 8.3 L AST Total Creatine Kinase Albumin Influenza A (Rapid) 10/18/19 10/18/19 10/19/19 11:28 18:27 06:39 WBC MCV MCH RDW Lymph % (Auto) [place] % (Auto) Lymph # Seg Neutrophils % Seg Neuts % (Manual) Monocytes % (Manual) Lymphocytes # (Manual) POC ABG pH 7.461 H 7.487 H POC ABG pCO2 53.4 H 52.8 H 51.7 H POC ABG pO2 70 L 71 L ABG pO2 ABG HCO3 ABG Base Excess ABG Hemoglobin Potassium Creatinine Glucose Calcium AST Total Creatine Kinase Albumin Influenza A (Rapid) Chest x-ray: image reviewed (Bilateral alveolar infiltrates, low lung volumes) Allied health notes reviewed: RT
[2019-10-19] MEDS ORDERED: FAMOTIDINE 20 MG/2 ML INJ IV SCH (11:00)
[2019-10-19] MEDS ORDERED: BUMETANIDE 1 MG/4 ML INJ IV ONE (11:30)
[2019-10-19] MEDS ORDERED: FAMOTIDINE 20 MG/2 ML INJ IV ONE (11:34)
--- NOTE | 2019-10-19 11:43 | XRay Report ---
CHEST 1 VIEW 1113 hours INDICATION / CLINICAL INFORMATION: pulmonary edema, pneumonia. COMPARISON: 10/17/2019 FINDINGS: SUPPORT DEVICES: None. HEART / MEDIASTINUM: Stable cardiomegaly. LUNGS / PLEURA: Bilateral pulmonary edema or infiltrates have increased by 10-20%. Small pleural effu sions are likely present. No pneumothorax. ADDITIONAL FINDINGS: No significant additional findings. IMPRESSION: Minimal interval increase in pulmonary edema. Signer Name: Carlos Manuel Vazquez Jr, MD Signed: 10/19/2019 11:38 AM Workstation Name: [id number]
--- NOTE | 2019-10-19 13:01 | Consultation ---
History of Present Illness Consult date: 10/19/19 Consult reason: congestive heart failure History of present illness: The patient is a 49-year-old woman who is morbidly obese, weighing nearly 600 pounds. She has no prior cardiac history. She denies any known history of hypoventilation of sleep apnea. She presented to the emergency room with 2 days of shortness of breath. Chest x-ray in the emergency room showed acute bilateral pulmonary edema. Approach exam showed a normal white count of 4.0, normal creatinine level and normal troponin level. Most significant finding on her laboratory values was positive influenza A infection. ECG was normal sinus rhythm, normal ECG with no acute ischemic changes. The patient currently is awake and alert and oriented 3. She does have persistent mild dyspnea on bedrest, but no chest pain, no palpitations and no significant lower extremity edema. Past History Past Medical History: hypertension, other (Morbid obesity, lymphedema) Past Surgical History: Other (Right wrist surgery in 1994) Social history: no significant social history Family history: cancer (Pancreatic cancer runs in the family), diabetes (Mother had diabetes mellitus, daughter also had diabetes mellitus) Medications and Allergies Allergies Allergy/AdvReac Type Severity Reaction Status Date / Time No Known Allergies Allergy Verified 10/17/19 20:40 Home Medications Medication Instructions Recorded Confirmed Last Taken Type Aspirin 325 mg PO DAILY 10/17/19 10/17/19 Unknown History Metoprolol 50 mg PO BID 10/17/19 10/17/19 Unknown History amLODIPine 10 mg PO DAILY 10/17/19 10/17/19 Unknown History Active Meds: Active Medications Albuterol (Proventil) 2.5 mg IH Q3HRT PRN PRN Reason: Shortness Of Breath Last Admin: 10/18/19 09:23 Dose: 2.5 mg Documented by: Amlodipine Besylate (Amlodipine) 10 mg PO DAILY [facility] Last Admin: 10/19/19 10:14 Dose: 10 mg Documented by: Aspirin (Aspirin) 325 mg PO DAILY [facility] Last Admin: 10/19/19 10:14 Dose: 325 mg Documented by: Famotidine (Pepcid) 20 mg IV QDAY [facility] Last Admin: 10/19/19 11:55 Dose: 20 mg Documented by: Furosemide (Lasix) 40 mg IV BID@0600,1800 [facility] Last Admin: 10/19/19 09:15 Dose: Not Given Documented by: Heparin Sodium (Porcine) (Heparin) 5,000 unit SUB-Q Q8HR [facility] Last Admin: 10/19/19 09:25 Dose: 5,000 unit Documented by: Lorazepam (Ativan) 1 mg IV ONCE PRN PRN Reason: Anxiety Last Admin: 10/19/19 00:26 Dose: 1 mg Documented by: Magnesium Hydroxide (Milk Of Magnesia) 30 ml PO Q4H PRN PRN Reason: Constipation Metoprolol Tartrate (Metoprolol) 50 mg PO BID [facility] Last Admin: 10/19/19 10:14 Dose: 50 mg Documented by: Morphine Sulfate (Morphine) 2 mg IV Q4H PRN PRN Reason: Pain, Moderate (4-6) Ondansetron HCl (Zofran) 4 mg IV Q8H PRN PRN Reason: Nausea And Vomiting Oseltamivir Phosphate (Tamiflu) 75 mg PO 1130,2330 [facility] Stop: 10/22/19 23:31 Last Admin: 10/19/19 12:20 Dose: 75 mg Documented by: Sodium Chloride (Sodium Chloride Flush Syringe 10 Ml) 10 ml IV BID [facility] Last Admin: 10/19/19 10:14 Dose: 10 ml Documented by: Sodium Chloride (Sodium Chloride Flush Syringe 10 Ml) 10 ml IV PRN PRN PRN Reason: LINE FLUSH Review of Systems Cardiovascular: orthopnea, shortness of breath, no chest pain, no palpitations, no rapid/irregular heart beat, no edema, no syncope, no lightheadedness Physical Examination Vital Signs Pulse Resp BP Pulse Ox 118 H 12 119/62 93 10/17/19 20:56 10/17/19 20:56 10/17/19 20:56 10/17/19 20:56 General appearance: mild distress, obese HEENT: Positive: PERRL Neck: Positive: neck supple Cardiac: Positive: Reg Rate and Rhythm Lungs: Positive: Decreased Breath Sounds Neuro: Positive: Grossly Intact Abdomen: Positive: Soft Female genitourinary: deferred Skin: Positive: Clear Extremities: Absent: edema Results 10/18/19 05:21 10/18/19 05:21 EKG interpretations - Telemetry EKG Rhythm: Sinus Rhythm Assessment and Plan - Patient Problems (1) Pulmonary edema Current Visit: Yes Status: Acute Plan to address problem: Patient presents with shortness of breath and acute pulmonary edema. In add ition to aggressive diuretic treatment, we'll get an echocardiogram for left ventricular function assessment. Due to the patient's morbid obesity, nearly 600 pounds, opportunities for further cardiac ischemic workup are limited.
--- NOTE | 2019-10-19 13:20 | Consultation ---
History of Present Illness - Reason for Consult Consult date: 10/19/19 Influenza, morbid obesity Requesting physician: MAHENDRA ROWLAND - History of Present Illness The patient is a 49-year-old female with morbid obesity, hypertension, lymphedema, functional quadriplegia and sleep apnea came into the emergency room with shortness of breath and hypoxia. She was started on BiPAP due to her respiratory failure. She was also found to have influenza A and was started em pirically on treatment. Infectious diseases was consulted for management. Awaiting ICU bed. Review of Systems: General: fever and chills HEENT: no new visual disturbance Respiratory: SOB requiring BIPAP Cardiovascular: No chest pain, syncope Gastrointestinal: No nausea, vomiting or diarrhea Genitourinary: No dysuria or hematuria Musculoskeletal: No new or worsening neck pain or back pain Neurologic: No headaches, seizures Hematologic: No easy bruising or bleeding Endocrine: No night sweats or acute weight loss Skin: negative for rash, jaundice Psychiatric: No suicidal or homicidal ideation Past History Past Medical History: hypertension, other (Morbid obesity, lymphedema) Past Surgical History: Other (Right wrist surgery in 1994) Social history: no significant social history Family history: cancer (Pancreatic cancer runs in the family), diabetes (Mother had diabetes mellitus, daughter also had diabetes mellitus) Medications and Allergies Allergies Allergy/AdvReac Type Severity Reaction Status Date / Time No Known Allergies Allergy Verified 10/17/19 20:40 Home Medications Medication Instructions Recorded Confirmed Last Taken Type Aspirin 325 mg PO DAILY 10/17/19 10/17/19 Unknown History Metoprolol 50 mg PO BID 10/17/19 10/17/19 Unknown History amLODIPine 10 mg PO DAILY 10/17/19 10/17/19 Unknown History Active Meds: Active Medications Albuterol (Proventil) 2.5 mg IH Q3HRT PRN PRN Reason: Shortness Of Breath Last Admin: 10/18/19 09:23 Dose: 2.5 mg Documented by: Amlodipine Besylate (Amlodipine) 10 mg PO DAILY [facility] Last Admin: 10/19/19 10:14 Dose: 10 mg Documented by: Aspirin (Aspirin) 325 mg PO DAILY [facility] Last Admin: 10/19/19 10:14 Dose: 325 mg Documented by: Famotidine (Pepcid) 20 mg IV QDAY [facility] Last Admin: 10/19/19 11:55 Dose: 20 mg Documented by: Furosemide (Lasix) 40 mg IV BID@0600,1800 [facility] Last Admin: 10/19/19 09:15 Dose: Not Given Documented by: Heparin Sodium (Porcine) (Heparin) 5,000 unit SUB-Q Q8HR [facility] Last Admin: 10/19/19 09:25 Dose: 5,000 unit Documented by: Lorazepam (Ativan) 1 mg IV ONCE PRN PRN Reason: Anxiety Last Admin: 10/19/19 00:26 Dose: 1 mg Documented by: Magnesium Hydroxide (Milk Of Magnesia) 30 ml PO Q4H PRN PRN Reason: Constipation Metoprolol Tartrate (Metoprolol) 50 mg PO BID [facility] Last Admin: 10/19/19 10:14 Dose: 50 mg Documented by: Morphine Sulfate (Morphine) 2 mg IV Q4H PRN PRN Reason: Pain, Moderate (4-6) Ondansetron HCl (Zofran) 4 mg IV Q8H PRN PRN Reason: Nausea And Vomiting Oseltamivir Phosphate (Tamiflu) 75 mg PO 1130,2330 [facility] Stop: 10/22/19 23:31 Last Admin: 10/19/19 12:20 Dose: 75 mg Documented by: Sodium Chloride (Sodium Chloride Flush Syringe 10 Ml) 10 ml IV BID [facility] Last Admin: 10/19/19 10:14 Dose: 10 ml Documented by: Sodium Chloride (Sodium Chloride Flush Syringe 10 Ml) 10 ml IV PRN PRN PRN Reason: LINE FLUSH Physical Examination - Physical Exam Narrative exam: Physical Exam: Constitutional: Alert, cooperative. Resp distress. Morbid obesity Head, Ears, Nose: Normocephalic, atraumatic. External ears, nose normal Eyes: Conjunctivae/corneas clear. No icterus. No ptosis. Neck: Supple, no meningeal signs Oral: BiPAP Cardiovascular: S1, S2 normal. Respiratory: AE fair b/l with some rhonchi GI: Soft, non-tender; bowel sounds normal. No peritoneal signs Musculoskeletal: No pedal edema, no cyanosis. Skin: No rash or abscess Hem/Lymphatic: No palpable cervical or supraclavicular nodes. No lymphangitis Psych: Mood ok. Affect normal Neurological: Awake, alert, oriented. No gross abnormality - Constitutional Vitals: Vital Signs Temp Pulse Resp BP Pulse Ox 98.9 F 82 27 H 126/58 88 12/28/19 20:57 10/19/19 11:17 10/19/19 11:17 10/19/19 12:01 10/19/19 13:02 Results - Labs CBC & Chem 7: 10/18/19 05:21 10/18/19 05:21 Labs: Abnormal lab results 10/18/19 10/19/19 Range/Units 18:27 06:39 POC ABG pH 7.461 H 7.487 H (7.35-7.45) POC ABG pCO2 52.8 H 51.7 H (35-45) POC ABG pO2 71 L (80-105) - Imaging and Cardiology Chest x-ray: report reviewed, image reviewed (diffuse b/l airspace disease) Assessment and Plan Cultures: 10/17/2019 blood culture: No growth 10/17/2019 influenza A: Positive A/P: 49-year-old female with morbid obesity, hypertension, lymphedema, functional quadriplegia and sleep apnea admitted with: #Influenza A with acute respiratory failure #Morbid obesity: BMI is 93. OPTIMO trial for oseltamivir showed no difference in high dose v/s standard dose but the median BMI in the obese arm was only 33.8 and the highest BMI in that arm was 43. Hence, I think it would be appropriate to give his patient high dose Tamiflu. Recs: considering her BMI and acute respiratory failure, will treat with high dose Tamiflu of 150 mg BID x 5 days will check procalcitonin, empirically, also add coverage for CAP with Ceftriaxone + Azithromycin Henny Nayak MD, FACP [facility] C: [phone] O: [phone] F: [phone]
[2019-10-19] MEDS ORDERED: methylPREDNISolone Sod Succinate 125 MG/2 ML INJ IV ONE (14:28)
[2019-10-19] MEDS ORDERED: ALBUTEROL 2.5 MG/3 ML NEBU IH ONE (14:30)
--- NOTE | 2019-10-19 14:33 | Progress Note ---
Assessment and Plan Assessment and plan: Patient is a 49 yo woman with a history of severe obesity BMI 93.6 (579 lbs), hypertension, lymphedema, functional quadriplegia and DEAN non compliant with CPAP who presents to [facility] ED with SOB and found to be hypoxic with pulse ox in the 50s. She was treated with BIPAP. 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 Follow-up on current diagnosis of respiratory failure, influenza pna. Overnight uneventful as no events directly reported to me. Patient denies any chest pain, nausea/vomiting or severe headaches. Imaging, nursing note, chart, labs and old chart reviewed. Discussed with patient and mother at bedside. Still on bipap. still with conversational dyspnea. still ill appearing, i was given report this morning that she had severe bronchospasm when bipap taken off. I ordered duonebs around the clock and one dose of iv steroids. Hospitalist Physical - Physical exam Narrative exam: Gen: ill appearing, bmi 93.6 Awake, Alert, Orientated HEENT: NCAT, EOMI, PERRL, OP Clear Neck: supple, no adenopathy, no thyromegaly, equiv JVD CVS/Heart: RRR, normal S1S2, pulses present bilaterally Chest/Lungs: diminished bs bilateral with wheezing, Symmetrical chest expansion, good air entry bilaterally GI/Abdomen: soft, NTND, good bowel sounds, no guarding or rebound /Bladder: no suprapubic tenderness, no CVA or paraspinal tenderness Extermity/Skin: ble edema improved MSK: FROM x 4 Neuro: CN 2-12 grossly intact, no new focal deficits Psych: calm - Constitutional Vitals: Temp Pulse Resp BP Pulse Ox 98.7 F 90 31 H 127/68 87 10/19/19 13:19 10/19/19 14:01 10/19/19 14:01 10/19/19 14:01 10/19/19 14:01 General appearance: Present: obese. Absent: mild distress Results - Labs CBC & Chem 7: 10/18/19 05:21 10/18/19 05:21 Labs: Laboratory Last Values WBC 3.3 K/mm3 (4.5-11.0) L 10/18/19 05:21 RBC 5.01 M/mm3 (3.65-5.03) 10/18/19 05:21 Hgb 12.6 gm/dl (10.1-14.3) 10/18/19 05:21 Hct 39.8 % (30.3-42.9) 10/18/19 05:21 MCV 80 fl (79-97) 10/18/19 05:21 MCH 25 pg (28-32) L 10/18/19 05:21 MCHC 32 % (30-34) 10/18/19 05:21 RDW 24.3 % (13.2-15.2) H 10/18/19 05:21 Plt Count 175 K/mm3 (140-440) 10/18/19 05:21 Lymph % (Auto) 12.5 % (13.4-35.0) L 10/18/19 05:21 Cameron % (Auto) 7.9 % (0.0-7.3) H 10/18/19 05:21 Eos % (Auto) 0.0 % (0.0-4.3) 10/18/19 05:21 Baso % (Auto) 1.0 % (0.0-1.8) 10/18/19 05:21 Lymph # 0.4 K/mm3 (1.2-5.4) L 10/18/19 05:21 Cameron # 0.3 K/mm3 (0.0-0.8) 10/18/19 05:21 Eos # 0.0 K/mm3 (0.0-0.4) 10/18/19 05:21 Baso # 0.0 K/mm3 (0.0-0.1) 10/18/19 05:21 Add Manual Diff Complete 10/17/19 20:57 Total Counted 100 10/17/19 20:57 Seg Neutrophils % 78.6 % (40.0-70.0) H 10/18/19 05:21 Seg Neuts % (Manual) 77.0 % (40.0-70.0) H 10/17/19 20:57 Band Neutrophils % 0 % 10/17/19 20:57 Lymphocytes % (Manual) 14.0 % (13.4-35.0) 10/17/19 20:57 Reactive Lymphs % (Man) 0 % 10/17/19 20:57 Monocytes % (Manual) 9.0 % (0.0-7.3) H 10/17/19 20:57 Eosinophils % (Manual) 0 % (0.0-4.3) 10/17/19 20:57 Basophils % (Manual) 0 % (0.0-1.8) 10/17/19 20:57 Metamyelocytes % 0 % 10/17/19 20:57 Myelocytes % 0 % 10/17/19 20:57 Promyelocytes % 0 % 10/17/19 20:57 Blast Cells % 0 % 10/17/19 20:57 Nucleated RBC % Not Reportable 10/17/19 20:57 Seg Neutrophils # 2.6 K/mm3 (1.8-7.7) 10/18/19 05:21 Seg Neutrophils # Man 3.1 K/mm3 (1.8-7.7) 10/17/19 20:57 Band Neutrophils # 0.0 K/mm3 10/17/19 20:57 Lymphocytes # (Manual) 0.6 K/mm3 (1.2-5.4) L 10/17/19 20:57 Abs React Lymphs (Man) 0.0 K/mm3 10/17/19 20:57 Monocytes # (Manual) 0.4 K/mm3 (0.0-0.8) 10/17/19 20:57 Eosinophils # (Manual) 0.0 K/mm3 (0.0-0.4) 10/17/19 20:57 Basophils # (Manual) 0.0 K/mm3 (0.0-0.1) 10/17/19 20:57 Metamyelocytes # 0.0 K/mm3 10/17/19 20:57 Myelocytes # 0.0 K/mm3 10/17/19 20:57 Promyelocytes # 0.0 K/mm3 10/17/19 20:57 Blast Cells # 0.0 K/mm3 10/17/19 20:57 WBC Morphology Not Reportable 10/17/19 20:57 Hypersegmented Neuts Not Reportable 10/17/19 20:57 Hyposegmented Neuts Not Reportable 10/17/19 20:57 Hypogranular Neuts Not Reportable 10/17/19 20:57 Smudge Cells Not Reportable 10/17/19 20:57 Toxic Granulation Not Reportable 10/17/19 20:57 Toxic Vacuolation Not Reportable 10/17/19 20:57 Dohle Bodies Not Reportable 10/17/19 20:57 Pelger-Huet Anomaly Not Reportable 10/17/19 20:57 Krista Rods Not Reportable 10/17/19 20:57 Platelet Estimate Not Reportable 10/17/19 20:57 Clumped Platelets Not Reportable 10/17/19 20:57 Plt Clumps, EDTA Not Reportable 10/17/19 20:57 Large Platelets Not Reportable 10/17/19 20:57 Giant Platelets Not Reportable 10/17/19 20:57 Platelet Satelliting Not Reportable 10/17/19 20:57 Plt Morphology Comment Not Reportable 10/17/19 20:57 RBC Morphology Not Reportable 10/17/19 20:57 Dimorphic RBCs Not Reportable 10/17/19 20:57 Polychromasia Not Reportable 10/17/19 20:57 Hypochromasia 1+ 10/17/19 20:57 Poikilocytosis Not Reportable 10/17/19 20:57 Anisocytosis 2+ 10/17/19 20:57 Microcytosis Not Reportable 10/17/19 20:57 Macrocytosis Not Reportable 10/17/19 20:57 Spherocytes Not Reportable 10/17/19 20:57 Pappenheimer Bodies Not Reportable 10/17/19 20:57 Sickle Cells Not Reportable 10/17/19 20:57 Target Cells Not Reportable 10/17/19 20:57 Tear Drop Cells Not Reportable 10/17/19 20:57 Ovalocytes Not Reportable 10/17/19 20:57 Helmet Cells Not Reportable 10/17/19 20:57 [place] Bodies Not Reportable 10/17/19 20:57 [place] Rings Not Reportable 10/17/19 20:57 James Cells Not Reportable 10/17/19 20:57 Bite Cells Not Reportable 10/17/19 20:57 Crenated Cell Not Reportable 10/17/19 20:57 Elliptocytes Not Reportable 10/17/19 20:57 Acanthocytes (Spur) Not Reportable 10/17/19 20:57 Rouleaux Not Reportable 10/17/19 20:57 Hemoglobin C Crystals Not Reportable 10/17/19 20:57 Schistocytes Not Reportable 10/17/19 20:57 Malaria parasites Not Reportable 10/17/19 20:57 Alejandro Bodies Not Reportable 10/17/19 20:57 Hem Pathologist Commnt No 10/17/19 20:57 POC ABG pH 7.487 (7.35-7.45) H 10/19/19 06:39 ABG pH 7.394 pH Units (7.350-7.450) 10/18/19 09:19 POC ABG pCO2 51.7 (35-45) H 10/19/19 06:39 ABG pCO2 50.6 mm Hg 10/18/19 09:19 POC ABG pO2 71 (80-105) L 10/19/19 06:39 ABG pO2 131.3 mm Hg (80.0-90.0) H 10/18/19 09:19 POC ABG HCO3 39.1 (22-26 mml/L) 10/19/19 06:39 ABG HCO3 30.2 mmol/L (20.0-26.0) H 10/18/19 09:19 POC ABG Total CO2 41 (23-27mmol/L) 10/19/19 06:39 POC ABG O2 Sat 95 10/19/19 06:39 ABG O2 Saturation 98.5 % (95.0-99.0) 10/18/19 09:19 ABG O2 Content 14.8 (0.0-44) 10/18/19 09:19 POC ABG Base Excess 16 ((-2) - (+3)mmol/L) 10/19/19 06:39 ABG Base Excess 4.5 mmol/L (-2.0-3.0) H 10/18/19 09:19 ABG Hemoglobin 10.7 gm/dl (12.0-16.0) L 10/18/19 09:19 ABG Carboxyhemoglobin 1.2 % (0.0-5.0) 10/18/19 09:19 ABG Methemoglobin 0.4 % (0.0-1.5) 10/18/19 09:19 Oxyhemoglobin 96.9 % (95.0-99.0) 10/18/19 09:19 FiO2 80 % 10/19/19 06:39 Sodium 144 mmol/L (137-145) 10/18/19 05:21 Potassium 4.2 mmol/L (3.6-5.0) 10/18/19 05:21 Chloride 99.4 mmol/L (98-107) 10/18/19 05:21 Carbon Dioxide 28 mmol/L (22-30) 10/18/19 05:21 Anion Gap 21 mmol/L 10/18/19 05:21 BUN 16 mg/dL (7-17) 10/18/19 05:21 Creatinine 0.7 mg/dL (0.7-1.2) 10/18/19 05:21 Estimated GFR > 60 ml/min 10/18/19 05:21 BUN/Creatinine Ratio 23 % 10/18/19 05:21 Glucose 167 mg/dL (65-100) H 10/18/19 05:21 Calcium 8.3 mg/dL (8.4-10.2) L 10/18/19 05:21 Total Bilirubin 0.20 mg/dL (0.1-1.2) 10/17/19 20:57 AST 57 units/L (5-40) H 10/17/19 20:57 ALT 22 units/L (7-56) 10/17/19 20:57 Alkaline Phosphatase 67 units/L (35-129) 10/17/19 20:57 Total Creatine Kinase 857 units/L (30-135) H 10/17/19 20:57 CK-MB (CK-2) 2.6 ng/mL (0.0-4.0) 10/17/19 20:57 CK-MB (CK-2) Rel Index 0.3 (0-4) 10/17/19 20:57 Troponin T < 0.010 ng/mL (0.00-0.029) 10/17/19 20:57 NT-Pro-B Natriuret Pep 317.6 pg/mL (0-450) 10/17/19 20:57 Total Protein 7.1 g/dL (6.3-8.2) 10/17/19 20:57 Albumin 3.0 g/dL (3.9-5) L 10/17/19 20:57 Albumin/Globulin Ratio 0.7 % 10/17/19 20:57 Influenza A (Rapid) Positive (Negative) A 10/17/19 Unknown Influenza B (Rapid) Negative (Negative) 10/17/19 Unknown Active Medications - Current Medications Current Medications: Generic Name Dose Route Start Last Admin Trade Name Freq PRN Reason Stop Dose Admin Albuterol 2.5 mg 10/17/19 22:47 10/18/19 09:23 Proventil IH 2.5 mg Q3HRT PRN Administration Shortness Of Breath Albuterol/Ipratropium 1 ampul 10/19/19 20:00 Duoneb *Not For Prn Use* IH TIDRT EDI Amlodipine Besylate 10 mg 10/18/19 10:00 10/19/19 10:14 Amlodipine PO 10 mg DAILY EDI Administration Famotidine 20 mg 10/19/19 11:00 10/19/19 11:55 Pepcid IV 20 mg QDAY EDI Administration Furosemide 40 mg 10/18/19 06:00 10/19/19 09:15 Lasix IV Not Given BID@0600,1800 [facility] Heparin Sodium (Porcine) 5,000 unit 10/18/19 06:00 10/19/19 09:25 Heparin SUB-Q 5,000 unit Q8HR EDI Administration Lorazepam 1 mg 10/17/19 20:39 10/19/19 00:26 Ativan IV 1 mg ONCE PRN Administration Anxiety Magnesium Hydroxide 30 ml 10/17/19 22:47 Milk Of Magnesia PO Q4H PRN Constipation Metoprolol Tartrate 50 mg 10/18/19 10:00 10/19/19 10:14 Metoprolol PO 50 mg BID EDI Administration Morphine Sulfate 2 mg 10/17/19 22:47 Morphine IV Q4H PRN Pain, Moderate (4-6) Ondansetron HCl 4 mg 10/17/19 22:47 Zofran IV Q8H PRN Nausea And Vomiting Oseltamivir Phosphate 75 mg 10/18/19 11:30 10/19/19 12:20 Tamiflu PO 10/22/19 23:31 75 mg 1130,2330 EDI Administration Pantoprazole Sodium 40 mg 10/19/19 15:00 Protonix IV QDAY EDI Sodium Chloride 10 ml 10/18/19 10:00 10/19/19 10:14 Sodium Chloride Flush Syringe 10 Ml IV 10 ml BID EDI Administration Sodium Chloride 10 ml 10/17/19 22:47 Sodium Chloride Flush Syringe 10 Ml IV PRN PRN LINE FLUSH Nutrition/Malnutrition Assess - Dietary Evaluation Nutrition/Malnutrition Findings: Nutrition Notes Start: 10/19/19 13:20 Freq: Status: Active Protocol: Document 10/19/19 13:20 LM (Rec: 10/19/19 13:23 LM [id number]) Nutrition Notes Need for Assessment generated from: MD Order,Education Initial or Follow up Brief Note Current Diagnosis Hypertension,Respiratory Failure Other Pertinent Diagnosis lymphedema, pulmonary edema, SOB, DVT Current Diet Cardiac Subjective/Other Information MD consult for diet education. Pt in ED. Nutrition Intervention Follow-Up By: 10/20/19 Additional Comments F/U for diet education, assessment needs
[2019-10-19] MEDS: ALBUTEROL 2.5 MG/3 ML NEBU IH PRN (14:34)
[2019-10-19] MEDS ORDERED: methylPREDNISolone Sod Succinate 125 MG/2 ML INJ ONE (14:55)
[2019-10-19] MEDS ORDERED: methylPREDNISolone Sod Succinate 125 MG/2 ML INJ IV SCH (15:00)
[2019-10-19] MEDS ORDERED: PANTOPRAZOLE 40 MG INJ IV ONE (15:16)
[2019-10-19] MEDS: PANTOPRAZOLE 40 MG INJ IV SCH (15:26)
[2019-10-19] MEDS ORDERED: AZITHROMYCIN 500 MG in SODIUM CHLORIDE 0.9% 250ML 250 ML IV SCH (16:00)
[2019-10-19] MEDS: AZITHROMYCIN 250 MG TAB PO SCH (19:00)
[2019-10-19] MEDS: cefTRIAXone/NS 2 GM/100 ML 2 GM/100 ML BAG IV SCH (19:00)
[2019-10-19] MEDS: IPRATROPIUM/ALBUTEROL SULFATE 3 ML AMPUL.NEB IH SCH (20:31)
[2019-10-20] MEDS: HEPARIN 5,000 UNIT/1 ML VIAL SUB-Q SCH ×3 (07:31→22:12)
[2019-10-20] MEDS: FUROSEMIDE 40 MG/4 ML INJ IV SCH ×2 (07:31→17:47)
[2019-10-20] MEDS: IPRATROPIUM/ALBUTEROL SULFATE 3 ML AMPUL.NEB IH SCH ×3 (09:36→20:08)
--- NOTE | 2019-10-20 11:11 | Progress Note ---
Assessment and Plan Acute bilateral pulmonary edema Influenza A infection Severe morbid obesity An echocardiogram this admission reports mild decreased left ventricular systolic function, ejection fraction 40-45%. Subjective Date of service: 10/20/19 Interval history: Patient is resting in bed with active coughs. She has no cardiac complaints. Admits she is diuresing well. Objective Vital Signs Temp Pulse Pulse Resp Resp BP BP 10/20/19 11:00 89 29 H 144/75 10/20/19 10:45 82 25 H 129/80 10/20/19 10:30 95 H 13 129/80 10/20/19 10:15 88 14 122/65 10/20/19 10:00 88 28 H 122/65 10/20/19 09:47 85 25 H 10/20/19 09:45 87 22 161/74 10/20/19 09:37 88 26 H 161/74 10/20/19 09:30 87 21 161/74 10/20/19 09:15 91 H 26 H 155/110 10/20/19 09:00 90 34 H 155/110 10/20/19 08:45 88 30 H 138/59 10/20/19 08:31 90 29 H 138/59 10/20/19 08:15 87 28 H 153/73 10/20/19 08:00 98.7 F 93 H 20 153/73 10/20/19 07:45 87 28 H 154/79 10/20/19 07:30 90 27 H 136/88 10/20/19 07:15 85 24 154/79 10/20/19 07:00 89 28 H 154/79 10/20/19 06:45 77 23 149/77 10/20/19 06:30 82 20 149/77 10/20/19 06:15 87 28 H 140/78 10/20/19 06:00 87 29 H 140/78 10/20/19 05:45 95 H 24 133/75 10/20/19 05:43 70 19 133/75 10/20/19 05:30 84 27 H 133/75 10/20/19 05:15 91 H 24 122/80 10/20/19 05:00 82 22 126/75 10/20/19 04:45 84 27 H 122/75 10/20/19 04:30 90 28 H 122/80 10/20/19 04:15 85 25 H 105/58 10/20/19 04:00 100 H 28 H 122/75 10/20/19 03:45 86 23 105/58 10/20/19 03:30 81 21 105/58 10/20/19 03:18 98.5 F 10/20/19 03:15 81 24 111/67 10/20/19 03:00 91 H 27 H 111/67 10/20/19 02:45 86 24 112/61 10/20/19 02:30 89 21 112/61 10/20/19 02:15 85 20 106/57 10/20/19 02:00 84 25 H 106/57 10/20/19 01:45 103 H 23 104/66 10/20/19 01:30 87 24 111/60 10/20/19 01:15 89 27 H 108/78 10/20/19 01:00 84 23 104/66 10/20/19 00:45 91 H 29 H 108/78 10/20/19 00:30 100 H 31 H 108/78 10/20/19 00:24 91 H 20 117/68 10/20/19 00:15 90 23 117/68 10/20/19 00:00 89 27 H 117/68 10/19/19 23:45 97 H 31 H 130/76 10/19/19 23:30 90 26 H 130/76 10/19/19 23:15 94 H 30 H 107/63 10/19/19 23:01 97.7 F 10/19/19 23:00 95 H 20 107/63 10/19/19 22:45 100 H 22 100/64 10/19/19 22:44 96 H 100/64 10/19/19 22:30 96 H 23 100/64 10/19/19 22:15 98 H 29 H 107/62 10/19/19 22:00 96 H 41 H 107/62 10/19/19 21:45 101 H 33 H 116/70 10/19/19 21:37 90 30 H 116/70 10/19/19 21:30 96 H 25 H 116/70 10/19/19 21:15 93 H 28 H 118/73 10/19/19 21:00 97 H 32 H 118/73 10/19/19 20:45 90 27 H 114/65 10/19/19 20:30 87 29 H 114/65 10/19/19 20:15 92 H 30 H 120/76 10/19/19 20:00 94 H 29 H 120/76 10/19/19 19:58 99.1 F 10/19/19 19:45 93 H 33 H 116/68 10/19/19 19:30 90 29 H 116/68 10/19/19 19:21 92 H 31 H 108/60 10/19/19 19:11 93 H 33 H 108/60 10/19/19 19:00 97.7 F 94 H 31 H 108/60 10/19/19 18:51 100 H 37 H 103/51 10/19/19 18:41 98 H 31 H 103/51 10/19/19 18:30 78 22 103/51 10/19/19 18:21 93 H 31 H 99/10 10/19/19 18:11 91 H 29 H 125/83 10/19/19 18:00 100 H 33 H 125/83 10/19/19 17:51 92 H 31 H 115/64 10/19/19 17:41 110 H 28 H 99/10 10/19/19 17:31 88 28 H 99/10 10/19/19 17:21 97 H 16 116/65 10/19/19 17:11 88 28 H 116/65 10/19/19 17:00 90 32 H 116/65 10/19/19 16:51 90 29 H 119/62 10/19/19 16:41 91 H 21 10/19/19 16:30 93 H 17 112/71 10/19/19 16:20 96 H 25 H 112/71 10/19/19 16:10 90 21 112/71 10/19/19 16:00 97.7 F 93 H 21 104/63 10/19/19 15:56 100 H 38 H 10/19/19 15:41 90 29 H 127/68 10/19/19 15:31 88 30 H 127/68 10/19/19 15:21 92 H 27 H 127/68 10/19/19 15:11 90 30 H 127/68 10/19/19 15:01 88 28 H 127/68 10/19/19 14:51 88 27 H 127/68 10/19/19 14:41 92 H 30 H 127/68 10/19/19 14:31 90 33 H 127/68 10/19/19 14:20 10/19/19 14:01 90 31 H 127/68 10/19/19 13:19 98.7 F 90 24 127/68 10/19/19 13:02 10/19/19 13:01 88 26 H 127/68 10/19/19 12:01 126/58 10/19/19 11:21 126/58 10/19/19 11:17 82 27 H 119/65 Pulse Ox 10/20/19 11:00 91 10/20/19 10:45 95 10/20/19 10:30 95 10/20/19 10:15 95 10/20/19 10:00 93 10/20/19 09:47 10/20/19 09:45 91 10/20/19 09:37 91 10/20/19 09:30 90 10/20/19 09:15 87 10/20/19 09:00 92 10/20/19 08:45 91 10/20/19 08:31 95 10/20/19 08:15 92 10/20/19 08:00 91 10/20/19 07:45 90 10/20/19 07:30 93 10/20/19 07:15 94 10/20/19 07:00 93 10/20/19 06:45 94 10/20/19 06:30 94 10/20/19 06:15 91 10/20/19 06:00 91 10/20/19 05:45 88 10/20/19 05:43 90 10/20/19 05:30 93 10/20/19 05:15 92 10/20/19 05:00 91 10/20/19 04:45 93 10/20/19 04:30 93 10/20/19 04:15 95 10/20/19 04:00 91 10/20/19 03:45 93 10/20/19 03:30 96 10/20/19 03:18 10/20/19 03:15 93 10/20/19 03:00 90 10/20/19 02:45 95 10/20/19 02:30 92 10/20/19 02:15 91 10/20/19 02:00 91 10/20/19 01:45 93 10/20/19 01:30 93 10/20/19 01:15 92 10/20/19 01:00 96 10/20/19 00:45 95 10/20/19 00:30 95 10/20/19 00:24 91 10/20/19 00:15 91 10/20/19 00:00 92 10/19/19 23:45 84 10/19/19 23:30 95 10/19/19 23:15 95 10/19/19 23:01 10/19/19 23:00 95 10/19/19 22:45 96 10/19/19 22:44 10/19/19 22:30 95 10/19/19 22:15 96 10/19/19 22:00 98 10/19/19 21:45 97 10/19/19 21:37 97 10/19/19 21:30 97 10/19/19 21:15 96 10/19/19 21:00 97 10/19/19 20:45 94 10/19/19 20:30 94 10/19/19 20:15 94 10/19/19 20:00 92 10/19/19 19:58 10/19/19 19:45 94 10/19/19 19:30 93 10/19/19 19:21 93 10/19/19 19:11 91 10/19/19 19:00 90 10/19/19 18:51 87 10/19/19 18:41 89 10/19/19 18:30 91 10/19/19 18:21 93 10/19/19 18:11 93 10/19/19 18:00 92 10/19/19 17:51 88 10/19/19 17:41 10/19/19 17:31 92 10/19/19 17:21 88 10/19/19 17:11 92 10/19/19 17:00 91 10/19/19 16:51 86 10/19/19 16:41 86 10/19/19 16:30 86 10/19/19 16:20 86 10/19/19 16:10 88 10/19/19 16:00 81 L 10/19/19 15:56 70 L 10/19/19 15:41 91 10/19/19 15:31 89 10/19/19 15:21 90 10/19/19 15:11 90 10/19/19 15:01 87 10/19/19 14:51 90 10/19/19 14:41 90 10/19/19 14:31 87 10/19/19 14:20 88 10/19/19 14:01 87 10/19/19 13:19 90 10/19/19 13:02 88 10/19/19 13:01 85 10/19/19 12:01 61 L 10/19/19 11:21 78 L 10/19/19 11:17 96 - Physical Examination General: No Apparent Distress, Other (obese) HEENT: Positive: PERRL Neck: Positive: trachea midline Cardiac: Positive: Reg Rate and Rhythm Lungs: Positive: Decreased Breath Sounds Neuro: Positive: Grossly Intact Abdomen: Positive: Soft Extremities: Absent: edema
[2019-10-20] MEDS: METOPROLOL TARTRATE 50 MG TAB PO SCH ×2 (11:19→22:10)
[2019-10-20] MEDS: amLODIPine 10 MG TAB PO SCH (11:20)
[2019-10-20] MEDS: AZITHROMYCIN 250 MG TAB PO SCH (11:20)
[2019-10-20] MEDS: PANTOPRAZOLE 40 MG INJ IV SCH (11:21)
[2019-10-20] MEDS: cefTRIAXone/NS 2 GM/100 ML 2 GM/100 ML BAG IV SCH (11:21)
[2019-10-20] MEDS: OSELTAMIVIR 75 MG CAP PO SCH ×2 (11:21→23:10)
--- NOTE | 2019-10-20 12:32 | Progress Note ---
Assessment and Plan Acute hypoxic-hypercapnic respiratory failure Bilateral alveolar infiltrates- possible heart failure-systolic Sepsis Influenza A pneumonia positive Acute diastolic heart failure suspected Extreme Obesity, BMI 93.6 Probable DEAN with OHS Functional quadriplegia h/o HTN Pulmonary HTN -NIPPV -Aspiration precautions, HOB>40 degrees -Wean FIO2 for O2 sats 88-90% -Oxygen restrictive strategies -Limit narcotic analgesia and benzodiazepines, to avoid respiratory depression - Anti-virals for Influenza infection -Bronchodilators per protocol -Place on airborne isolation -VTE prophylaxis -Stress ulcer prophylaxis - Accuchecks with glycemic control for SSI (While critically ill target blood glucose of 140-180 mg/dL; avoid hypoglycemia) - mobility protocol for pressure ulcer prevention - Monitor hemodynamics closely -Monitor electrolyte profile closely and replete as indicated -Chronic home medications, continue as clinically indicated -Gentle diuresis while monitoring renal function -Blanchard catheter in this critically ill patient, with poor urine output, requiring accurate intake and output monitoring. She acutely de-saturates with minimal movement -PT/OT -Weight loss and life style modifications on discharge. May need surgical bariatric intervention -Out patient evaluation for sleep apnea Discussed with RT and RN Discussed with the patient, updated her Also updated her sister who was at the bedside Discussed with hospitalist service CONDITION: CRITICAL PROGNOSIS: GUARDED CODE STATUS: FULL CODE The high probability of a clinically significant, sudden or life-threatening deterioration of the [respiratory, cardiovascular,] system(s) required my full and direct attention, intervention and personal management. The aggregate critical care time was [35] minutes without overlap. Time includes spent on; [x] Data Review and interpretation [x] Patient assessment and monitoring of vital signs [x] Documentation [x] Medication orders and management Subjective Date of service: 10/20/19 Interval history: Patient is seen today for: acute hypoxemic-hypercapnic respiratory failure: influenza infections; extreme obesity Seen and examined at bedside; 24hour events reviewed; nursing and respiratory care staff consulted; no adverse overnight events reported to me; remains on NIPPV, on going fevers, shortness of breath and cough. No chest pain. Was able to come off NIPPV to high flow for a couple hours Objective - Exam Narrative Exam: Physical Exam: Vitals reviewed Constitutional:on BIPAP via full face mask, Morbidly obese Head, Ears, Nose: Normocephalic, atraumatic. External ears, nose normal Eyes: Conjunctivae/corneas clear. No icterus. No ptosis. Neck: intubated Oral: intubated Cardiovascular: S1, S2 normal. Respiratory: Good air entry, clear to auscultation bilaterally GI: Soft, non-tender; bowel sounds normal. No peritoneal signs Musculoskeletal: No pedal edema, no cyanosis. Skin: No rash or abscess. No wounds Hem/Lymphatic: No palpable cervical or supraclavicular nodes. No lymphangitis Psych: no agitation Neurological: awake, alert, oriented x3 Vital Signs - 12hr 10/20/19 10/20/19 10/20/19 00:45 01:00 01:15 Temperature Pulse Rate 91 H 84 89 Pulse Rate [ Bilateral] Respiratory 29 H 23 27 H Rate Respiratory Rate [Bilateral ] Blood Pressure 108/78 104/66 108/78 O2 Sat by Pulse 95 96 92 Oximetry 10/20/19 10/20/19 10/20/19 01:30 01:45 02:00 Temperature Pulse Rate 87 103 H 84 Pulse Rate [ Bilateral] Respiratory 24 23 25 H Rate Respiratory Rate [Bilateral ] Blood Pressure 111/60 104/66 106/57 O2 Sat by Pulse 93 93 91 Oximetry 10/20/19 10/20/19 10/20/19 02:15 02:30 02:45 Temperature Pulse Rate 85 89 86 Pulse Rate [ Bilateral] Respiratory 20 21 24 Rate Respiratory Rate [Bilateral ] Blood Pressure 106/57 112/61 112/61 O2 Sat by Pulse 91 92 95 Oximetry 10/20/19 10/20/19 10/20/19 03:00 03:15 03:18 Temperature 98.5 F Pulse Rate 91 H 81 Pulse Rate [ Bilateral] Respiratory 27 H 24 Rate Respiratory Rate [Bilateral ] Blood Pressure 111/67 111/67 O2 Sat by Pulse 90 93 Oximetry 10/20/19 10/20/19 10/20/19 03:30 03:45 04:00 Temperature Pulse Rate 81 86 100 H Pulse Rate [ Bilateral] Respiratory 21 23 28 H Rate Respiratory Rate [Bilateral ] Blood Pressure 105/58 105/58 122/75 O2 Sat by Pulse 96 93 91 Oximetry 10/20/19 10/20/19 10/20/19 04:15 04:30 04:45 Temperature Pulse Rate 85 90 84 Pulse Rate [ Bilateral] Respiratory 25 H 28 H 27 H Rate Respiratory Rate [Bilateral ] Blood Pressure 105/58 122/80 122/75 O2 Sat by Pulse 95 93 93 Oximetry 10/20/19 10/20/19 10/20/19 05:00 05:15 05:30 Temperature Pulse Rate 82 91 H 84 Pulse Rate [ Bilateral] Respiratory 22 24 27 H Rate Respiratory Rate [Bilateral ] Blood Pressure 126/75 122/80 133/75 O2 Sat by Pulse 91 92 93 Oximetry 10/20/19 10/20/19 10/20/19 05:43 05:45 06:00 Temperature Pulse Rate 70 95 H 87 Pulse Rate [ Bilateral] Respiratory 19 24 29 H Rate Respiratory Rate [Bilateral ] Blood Pressure 133/75 133/75 140/78 O2 Sat by Pulse 90 88 91 Oximetry 10/20/19 10/20/19 10/20/19 06:15 06:30 06:45 Temperature Pulse Rate 87 82 77 Pulse Rate [ Bilateral] Respiratory 28 H 20 23 Rate Respiratory Rate [Bilateral ] Blood Pressure 140/78 149/77 149/77 O2 Sat by Pulse 91 94 94 Oximetry 10/20/19 10/20/19 10/20/19 07:00 07:15 07:30 Temperature Pulse Rate 89 85 90 Pulse Rate [ Bilateral] Respiratory 28 H 24 27 H Rate Respiratory Rate [Bilateral ] Blood Pressure 154/79 154/79 136/88 O2 Sat by Pulse 93 94 93 Oximetry 10/20/19 10/20/19 10/20/19 07:45 08:00 08:15 Temperature 97.7 F Pulse Rate 87 93 H 87 Pulse Rate [ Bilateral] Respiratory 28 H 20 28 H Rate Respiratory Rate [Bilateral ] Blood Pressure 154/79 153/73 153/73 O2 Sat by Pulse 90 91 92 Oximetry 10/20/19 10/20/19 10/20/19 08:31 08:45 09:00 Temperature Pulse Rate 90 88 90 Pulse Rate [ Bilateral] Respiratory 29 H 30 H 34 H Rate Respiratory Rate [Bilateral ] Blood Pressure 138/59 138/59 155/110 O2 Sat by Pulse 95 91 92 Oximetry 10/20/19 10/20/19 10/20/19 09:15 09:30 09:37 Temperature Pulse Rate 91 H 87 88 Pulse Rate [ Bilateral] Respiratory 26 H 21 26 H Rate Respiratory Rate [Bilateral ] Blood Pressure 155/110 161/74 161/74 O2 Sat by Pulse 87 90 91 Oximetry 10/20/19 10/20/19 10/20/19 09:45 09:47 10:00 Temperature Pulse Rate 87 88 Pulse Rate [ 85 Bilateral] Respiratory 22 28 H Rate Respiratory 25 H Rate [Bilateral ] Blood Pressure 161/74 122/65 O2 Sat by Pulse 91 93 Oximetry 10/20/19 10/20/19 10/20/19 10:15 10:30 10:45 Temperature Pulse Rate 88 95 H 82 Pulse Rate [ Bilateral] Respiratory 14 13 25 H Rate Respiratory Rate [Bilateral ] Blood Pressure 122/65 129/80 129/80 O2 Sat by Pulse 95 95 95 Oximetry 10/20/19 10/20/19 10/20/19 11:00 11:15 11:19 Temperature Pulse Rate 89 91 H 94 H Pulse Rate [ Bilateral] Respiratory 29 H 12 Rate Respiratory Rate [Bilateral ] Blood Pressure 144/75 144/75 144/75 O2 Sat by Pulse 91 87 Oximetry 10/20/19 10/20/19 10/20/19 11:20 11:30 11:45 Temperature Pulse Rate 94 H 93 H 92 H Pulse Rate [ Bilateral] Respiratory 27 H 26 H Rate Respiratory Rate [Bilateral ] Blood Pressure 144/75 136/74 136/74 O2 Sat by Pulse 84 85 Oximetry 10/20/19 10/20/19 12:00 12:15 Temperature Pulse Rate 90 74 Pulse Rate [ Bilateral] Respiratory 30 H 16 Rate Respiratory Rate [Bilateral ] Blood Pressure 147/73 147/73 O2 Sat by Pulse 88 86 Oximetry CBC and BMP: 10/27/19 05:40 10/31/19 08:02 ABG, PT/INR, D-dimer: ABG POC ABG pH 7.632 (7.35-7.45) H 10/20/19 10:25 ABG pH 7.394 pH Units (7.350-7.450) 10/18/19 09:19 POC ABG pCO2 39.4 (35-45) 10/20/19 10:25 ABG pCO2 50.6 mm Hg 10/18/19 09:19 POC ABG pO2 74 (80-105) L 10/20/19 10:25 ABG pO2 131.3 mm Hg (80.0-90.0) H 10/18/19 09:19 POC ABG HCO3 41.6 (22-26 mml/L) 10/20/19 10:25 POC ABG Total CO2 43 (23-27mmol/L) 10/20/19 10:25 POC ABG O2 Sat 97 10/20/19 10:25 ABG O2 Saturation 98.5 % (95.0-99.0) 10/18/19 09:19 Abnormal lab findings: Abnormal Labs 10/17/19 10/17/19 10/17/19 20:57 20:57 Unknown WBC 4.0 L MCV 78 L MCH 25 L RDW 24.7 H Lymph % (Auto) [place] % (Auto) Lymph # Seg Neutrophils % Seg Neuts % (Manual) 77.0 H Monocytes % (Manual) 9.0 H Lymphocytes # (Manual) 0.6 L POC ABG pH POC ABG pCO2 POC ABG pO2 ABG pO2 ABG HCO3 ABG Base Excess ABG Hemoglobin Potassium 3.5 L Creatinine 0.6 L Glucose 147 H POC Glucose Calcium 7.9 L AST 57 H Total Creatine Kinase 857 H Albumin 3.0 L Influenza A (Rapid) Positive A 10/18/19 10/18/19 10/18/19 05:21 05:21 09:19 WBC 3.3 L MCV MCH 25 L RDW 24.3 H Lymph % (Auto) 12.5 L [place] % (Auto) 7.9 H Lymph # 0.4 L Seg Neutrophils % 78.6 H Seg Neuts % (Manual) Monocytes % (Manual) Lymphocytes # (Manual) POC ABG pH POC ABG pCO2 POC ABG pO2 ABG pO2 131.3 H ABG HCO3 30.2 H ABG Base Excess 4.5 H ABG Hemoglobin 10.7 L Potassium Creatinine Glucose 167 H POC Glucose Calcium 8.3 L AST Total Creatine Kinase Albumin Influenza A (Rapid) 10/18/19 10/18/19 10/19/19 11:28 18:27 06:39 WBC MCV MCH RDW Lymph % (Auto) [place] % (Auto) Lymph # Seg Neutrophils % Seg Neuts % (Manual) Monocytes % (Manual) Lymphocytes # (Manual) POC ABG pH 7.461 H 7.487 H POC ABG pCO2 53.4 H 52.8 H 51.7 H POC ABG pO2 70 L 71 L ABG pO2 ABG HCO3 ABG Base Excess ABG Hemoglobin Potassium Creatinine Glucose POC Glucose Calcium AST Total Creatine Kinase Albumin Influenza A (Rapid) 10/19/19 10/20/19 10/20/19 23:25 05:31 09:08 WBC MCV MCH RDW Lymph % (Auto) [place] % (Auto) Lymph # Seg Neutrophils % Seg Neuts % (Manual) Monocytes % (Manual) Lymphocytes # (Manual) POC ABG pH POC ABG pCO2 POC ABG pO2 ABG pO2 ABG HCO3 ABG Base Excess ABG Hemoglobin Potassium Creatinine Glucose POC Glucose 203 H 144 H 163 H Calcium AST Total Creatine Kinase Albumin Influenza A (Rapid) 10/20/19 10:25 WBC MCV MCH RDW Lymph % (Auto) [place] % (Auto) Lymph # Seg Neutrophils % Seg Neuts % (Manual) Monocytes % (Manual) Lymphocytes # (Manual) POC ABG pH 7.632 H POC ABG pCO2 POC ABG pO2 74 L ABG pO2 ABG HCO3 ABG Base Excess ABG Hemoglobin Potassium Creatinine Glucose POC Glucose Calcium AST Total Creatine Kinase Albumin Influenza A (Rapid)
--- NOTE | 2019-10-20 15:00 | Progress Note ---
Assessment and Plan Assessment and plan: Patient is a 49 yo woman with a history of severe obesity BMI 93.6 (579 lbs), hypertension, lymphedema, functional quadriplegia and DEAN non compliant with CPAP who presents to [facility] ED with SOB and found to be hypoxic with pulse ox in the 50s. She was treated with BIPAP. * pCXR shows Probable congestive heart failure * TTE Conclusions: The left ventricular size is mildly dilated, mild to moderate concentric LVH, est EF 40-45%, left atrium is mildly dilated, trace MR, mild TR, mild to moderate Pulmonary hypertension, RVSP is calculated at 42 mmHG Acute hypoxic respiratory failure: treat with O2 via NIPPV, close to being intubated Sepsis Influenza A pneumonia positive: start treatment with Tamiflu, consulted ID, isolation Acute diastolic heart failure suspected: diuresis with iv lasix, consult Cardiology, ECHO done but not read Bronchospasm: added duonebs around the clock and ordered a dose of iv solumedrol, consulted Pulm/CCM Extreme Obesity, BMI 93.6: supportive care, consult [employer] DVT ppx sq heparin full code History Interval history: Patient was seen and examined. Follow-up on current diagnosis of respiratory failure, influenza pna. Overnight uneventful as no events directly reported to me. Patient denies any chest pain, nausea/vomiting or severe headaches. Imaging, nursing note, chart, labs and old chart reviewed. Discussed with patient and mother at bedside. Still on bipap. still with conversational dyspnea. still ill appearing, i was given report this morning that she had severe bronchospasm when bipap taken off. I ordered duonebs around the clock and one dose of iv steroids. Hospitalist Physical - Physical exam Narrative exam: Gen: ill appearing, bmi 93.6 Awake, Alert, Orientated HEENT: NCAT, EOMI, PERRL, OP Clear Neck: supple, no adenopathy, no thyromegaly, equiv JVD CVS/Heart: RRR, normal S1S2, pulses present bilaterally Chest/Lungs: diminished bs bilateral with wheezing, Symmetrical chest expansion, good air entry bilaterally GI/Abdomen: soft, NTND, good bowel sounds, no guarding or rebound /Bladder: no suprapubic tenderness, no CVA or paraspinal tenderness Extermity/Skin: ble edema improved MSK: FROM x 4 Neuro: CN 2-12 grossly intact, no new focal deficits Psych: calm - Constitutional Vitals: Temp Pulse Resp BP Pulse Ox 99.4 F 93 H 22 127/72 94 10/20/19 12:00 10/20/19 14:30 10/20/19 14:30 10/20/19 14:30 10/20/19 14:30 General appearance: Present: obese. Absent: mild distress Results - Labs CBC & Chem 7: 10/18/19 05:21 10/18/19 05:21 Labs: Laboratory Last Values WBC 3.3 K/mm3 (4.5-11.0) L 10/18/19 05:21 RBC 5.01 M/mm3 (3.65-5.03) 10/18/19 05:21 Hgb 12.6 gm/dl (10.1-14.3) 10/18/19 05:21 Hct 39.8 % (30.3-42.9) 10/18/19 05:21 MCV 80 fl (79-97) 10/18/19 05:21 MCH 25 pg (28-32) L 10/18/19 05:21 MCHC 32 % (30-34) 10/18/19 05:21 RDW 24.3 % (13.2-15.2) H 10/18/19 05:21 Plt Count 175 K/mm3 (140-440) 10/18/19 05:21 Lymph % (Auto) 12.5 % (13.4-35.0) L 10/18/19 05:21 [place] % (Auto) 7.9 % (0.0-7.3) H 10/18/19 05:21 Eos % (Auto) 0.0 % (0.0-4.3) 10/18/19 05:21 Baso % (Auto) 1.0 % (0.0-1.8) 10/18/19 05:21 Lymph # 0.4 K/mm3 (1.2-5.4) L 10/18/19 05:21 [place] # 0.3 K/mm3 (0.0-0.8) 10/18/19 05:21 Eos # 0.0 K/mm3 (0.0-0.4) 10/18/19 05:21 Baso # 0.0 K/mm3 (0.0-0.1) 10/18/19 05:21 Add Manual Diff Complete 10/17/19 20:57 Total Counted 100 10/17/19 20:57 Seg Neutrophils % 78.6 % (40.0-70.0) H 10/18/19 05:21 Seg Neuts % (Manual) 77.0 % (40.0-70.0) H 10/17/19 20:57 Band Neutrophils % 0 % 10/17/19 20:57 Lymphocytes % (Manual) 14.0 % (13.4-35.0) 10/17/19 20:57 Reactive Lymphs % (Man) 0 % 10/17/19 20:57 Monocytes % (Manual) 9.0 % (0.0-7.3) H 10/17/19 20:57 Eosinophils % (Manual) 0 % (0.0-4.3) 10/17/19 20:57 Basophils % (Manual) 0 % (0.0-1.8) 10/17/19 20:57 Metamyelocytes % 0 % 10/17/19 20:57 Myelocytes % 0 % 10/17/19 20:57 Promyelocytes % 0 % 10/17/19 20:57 Blast Cells % 0 % 10/17/19 20:57 Nucleated RBC % Not Reportable 10/17/19 20:57 Seg Neutrophils # 2.6 K/mm3 (1.8-7.7) 10/18/19 05:21 Seg Neutrophils # Man 3.1 K/mm3 (1.8-7.7) 10/17/19 20:57 Band Neutrophils # 0.0 K/mm3 10/17/19 20:57 Lymphocytes # (Manual) 0.6 K/mm3 (1.2-5.4) L 10/17/19 20:57 Abs React Lymphs (Man) 0.0 K/mm3 10/17/19 20:57 Monocytes # (Manual) 0.4 K/mm3 (0.0-0.8) 10/17/19 20:57 Eosinophils # (Manual) 0.0 K/mm3 (0.0-0.4) 10/17/19 20:57 Basophils # (Manual) 0.0 K/mm3 (0.0-0.1) 10/17/19 20:57 Metamyelocytes # 0.0 K/mm3 10/17/19 20:57 Myelocytes # 0.0 K/mm3 10/17/19 20:57 Promyelocytes # 0.0 K/mm3 10/17/19 20:57 Blast Cells # 0.0 K/mm3 10/17/19 20:57 WBC Morphology Not Reportable 10/17/19 20:57 Hypersegmented Neuts Not Reportable 10/17/19 20:57 Hyposegmented Neuts Not Reportable 10/17/19 20:57 Hypogranular Neuts Not Reportable 10/17/19 20:57 Smudge Cells Not Reportable 10/17/19 20:57 Toxic Granulation Not Reportable 10/17/19 20:57 Toxic Vacuolation Not Reportable 10/17/19 20:57 Dohle Bodies Not Reportable 10/17/19 20:57 Pelger-Huet Anomaly Not Reportable 10/17/19 20:57 Krista Rods Not Reportable 10/17/19 20:57 Platelet Estimate Not Reportable 10/17/19 20:57 Clumped Platelets Not Reportable 10/17/19 20:57 Plt Clumps, EDTA Not Reportable 10/17/19 20:57 Large Platelets Not Reportable 10/17/19 20:57 Giant Platelets Not Reportable 10/17/19 20:57 Platelet Satelliting Not Reportable 10/17/19 20:57 Plt Morphology Comment Not Reportable 10/17/19 20:57 RBC Morphology Not Reportable 10/17/19 20:57 Dimorphic RBCs Not Reportable 10/17/19 20:57 Polychromasia Not Reportable 10/17/19 20:57 Hypochromasia 1+ 10/17/19 20:57 Poikilocytosis Not Reportable 10/17/19 20:57 Anisocytosis 2+ 10/17/19 20:57 Microcytosis Not Reportable 10/17/19 20:57 Macrocytosis Not Reportable 10/17/19 20:57 Spherocytes Not Reportable 10/17/19 20:57 Pappenheimer Bodies Not Reportable 10/17/19 20:57 Sickle Cells Not Reportable 10/17/19 20:57 Target Cells Not Reportable 10/17/19 20:57 Tear Drop Cells Not Reportable 10/17/19 20:57 Ovalocytes Not Reportable 10/17/19 20:57 Helmet Cells Not Reportable 10/17/19 20:57 Gallagher-Sherwood Bodies Not Reportable 10/17/19 20:57 [place] Rings Not Reportable 10/17/19 20:57 James Cells Not Reportable 10/17/19 20:57 Bite Cells Not Reportable 10/17/19 20:57 Crenated Cell Not Reportable 10/17/19 20:57 Elliptocytes Not Reportable 10/17/19 20:57 Acanthocytes (Spur) Not Reportable 10/17/19 20:57 Rouleaux Not Reportable 10/17/19 20:57 Hemoglobin C Crystals Not Reportable 10/17/19 20:57 Schistocytes Not Reportable 10/17/19 20:57 Malaria parasites Not Reportable 10/17/19 20:57 Alejandro Bodies Not Reportable 10/17/19 20:57 Hem Pathologist Commnt No 10/17/19 20:57 POC ABG pH 7.632 (7.35-7.45) H 10/20/19 10:25 ABG pH 7.394 pH Units (7.350-7.450) 10/18/19 09:19 POC ABG pCO2 39.4 (35-45) 10/20/19 10:25 ABG pCO2 50.6 mm Hg 10/18/19 09:19 POC ABG pO2 74 (80-105) L 10/20/19 10:25 ABG pO2 131.3 mm Hg (80.0-90.0) H 10/18/19 09:19 POC ABG HCO3 41.6 (22-26 mml/L) 10/20/19 10:25 ABG HCO3 30.2 mmol/L (20.0-26.0) H 10/18/19 09:19 POC ABG Total CO2 43 (23-27mmol/L) 10/20/19 10:25 POC ABG O2 Sat 97 10/20/19 10:25 ABG O2 Saturation 98.5 % (95.0-99.0) 10/18/19 09:19 ABG O2 Content 14.8 (0.0-44) 10/18/19 09:19 POC ABG Base Excess 21 ((-2) - (+3)mmol/L) 10/20/19 10:25 ABG Base Excess 4.5 mmol/L (-2.0-3.0) H 10/18/19 09:19 ABG Hemoglobin 10.7 gm/dl (12.0-16.0) L 10/18/19 09:19 ABG Carboxyhemoglobin 1.2 % (0.0-5.0) 10/18/19 09:19 ABG Methemoglobin 0.4 % (0.0-1.5) 10/18/19 09:19 Oxyhemoglobin 96.9 % (95.0-99.0) 10/18/19 09:19 FiO2 100 % 10/20/19 10:25 Sodium 144 mmol/L (137-145) 10/18/19 05:21 Potassium 4.2 mmol/L (3.6-5.0) 10/18/19 05:21 Chloride 99.4 mmol/L (98-107) 10/18/19 05:21 Carbon Dioxide 28 mmol/L (22-30) 10/18/19 05:21 Anion Gap 21 mmol/L 10/18/19 05:21 BUN 16 mg/dL (7-17) 10/18/19 05:21 Creatinine 0.7 mg/dL (0.7-1.2) 10/18/19 05:21 Estimated GFR > 60 ml/min 10/18/19 05:21 BUN/Creatinine Ratio 23 % 10/18/19 05:21 Glucose 167 mg/dL (65-100) H 10/18/19 05:21 POC Glucose 178 (70-105) H 10/20/19 13:22 Calcium 8.3 mg/dL (8.4-10.2) L 10/18/19 05:21 Total Bilirubin 0.20 mg/dL (0.1-1.2) 10/17/19 20:57 AST 57 units/L (5-40) H 10/17/19 20:57 ALT 22 units/L (7-56) 10/17/19 20:57 Alkaline Phosphatase 67 units/L (35-129) 10/17/19 20:57 Total Creatine Kinase 857 units/L (30-135) H 10/17/19 20:57 CK-MB (CK-2) 2.6 ng/mL (0.0-4.0) 10/17/19 20:57 CK-MB (CK-2) Rel Index 0.3 (0-4) 10/17/19 20:57 Troponin T < 0.010 ng/mL (0.00-0.029) 10/17/19 20:57 NT-Pro-B Natriuret Pep 317.6 pg/mL (0-450) 10/17/19 20:57 Total Protein 7.1 g/dL (6.3-8.2) 10/17/19 20:57 Albumin 3.0 g/dL (3.9-5) L 10/17/19 20:57 Albumin/Globulin Ratio 0.7 % 10/17/19 20:57 Influenza A (Rapid) Positive (Negative) A 10/17/19 Unknown Influenza B (Rapid) Negative (Negative) 10/17/19 Unknown Active Medications - Current Medications Current Medications: Generic Name Dose Route Start Last Admin Trade Name Freq PRN Reason Stop Dose Admin Albuterol 2.5 mg 10/17/19 22:47 10/19/19 14:34 Proventil IH 2.5 mg Q3HRT PRN Administration Shortness Of Breath Albuterol/Ipratropium 1 ampul 10/19/19 20:00 10/20/19 09:36 Duoneb *Not For Prn Use* IH 1 ampul TIDRT EDI Administration Amlodipine Besylate 10 mg 10/18/19 10:00 10/20/19 11:20 Amlodipine PO 10 mg DAILY EDI Administration Azithromycin 500 mg 10/19/19 17:00 10/20/19 11:20 Zithromax PO 500 mg QDAY EDI Administration Furosemide 40 mg 10/18/19 06:00 10/20/19 07:31 Lasix IV 40 mg BID@0600,1800 EDI Administration Heparin Sodium (Porcine) 5,000 unit 10/18/19 06:00 10/20/19 07:31 Heparin SUB-Q 5,000 unit Q8HR EDI Administration Ceftriaxone Sodium 2 gm in 100 mls @ 200 mls/hr 10/19/19 16:00 10/20/19 11:21 Rocephin/Ns 2 Gm/100 Ml IV 200 mls/hr Q24HR EDI Administration Protocol Lorazepam 1 mg 10/17/19 20:39 10/19/19 17:00 Ativan IV 1 mg ONCE PRN Administration Anxiety Magnesium Hydroxide 30 ml 10/17/19 22:47 Milk Of Magnesia PO Q4H PRN Constipation Metoprolol Tartrate 50 mg 10/18/19 10:00 10/20/19 11:19 Metoprolol PO 50 mg BID EDI Administration Morphine Sulfate 2 mg 10/17/19 22:47 Morphine IV Q4H PRN Pain, Moderate (4-6) Ondansetron HCl 4 mg 10/17/19 22:47 Zofran IV Q8H PRN Nausea And Vomiting Oseltamivir Phosphate 150 mg 10/19/19 15:40 10/20/19 11:21 Tamiflu PO 10/22/19 23:31 150 mg 1130,2330 EDI Administration Pantoprazole Sodium 40 mg 10/21/19 10:00 Protonix PO DAILY EDI Sodium Chloride 10 ml 10/18/19 10:00 10/20/19 11:21 Sodium Chloride Flush Syringe 10 Ml IV 10 ml BID EDI Administration Sodium Chloride 10 ml 10/17/19 22:47 Sodium Chloride Flush Syringe 10 Ml IV PRN PRN LINE FLUSH Nutrition/Malnutrition Assess - Dietary Evaluation Nutrition/Malnutrition Findings: Nutrition Notes Start: 10/19/19 13:20 Freq: Status: Active Protocol: Document 10/19/19 13:20 LM (Rec: 10/19/19 13:23 LM [id number]) Nutrition Notes Need for Assessment generated from: MD Order,Education Initial or Follow up Brief Note Current Diagnosis Hypertension,Respiratory Failure Other Pertinent Diagnosis lymphedema, pulmonary edema, SOB, DVT Current Diet Cardiac Subjective/Other Information MD consult for diet education. Pt in ED. Nutrition Intervention Follow-Up By: 10/20/19 Additional Comments F/U for diet education, assessment needs
[2019-10-20 15:18] LABS: Hematocrit 34.1 % (30.3-42.9); Hemoglobin 10.8 gm/dl (10.1-14.3); Mean Corpuscular HGB Conc 32 % (30-34); Mean Corpuscular Volume 78 fl (79-97); Platelet Count 237 K/mm3 (140-440); Red Blood Count 4.35 M/mm3 (3.65-5.03)
[2019-10-20 15:21] LABS: Red Cell Distribution Width 23.9 % (13.2-15.2)
[2019-10-20 15:53] LABS: BUN/Creatinine Ratio 30; Blood Urea Nitrogen 15 mg/dL (7-17); Calcium 8.2 mg/dL (8.4-10.2); Hemolysis Index 2
--- NOTE | 2019-10-20 17:00 | Progress Note ---
Assessment and Plan Cultures: 10/17/2019 blood culture: No growth 10/17/2019 influenza A: Positive A/P: 49-year-old female with morbid obesity, hypertension, lymphedema, functional quadriplegia and sleep apnea admitted with: #Influenza A with acute respiratory failure #Morbid obesity: BMI is 93. OPTIMO trial for oseltamivir showed no difference in high dose v/s standard dose but the median BMI in the obese arm was only 33.8 and the highest BMI in that arm was 43. Hence, I think it would be appropriate to give his patient high dose Tamiflu. Recs: continue with high dose Tamiflu of 150 mg BID x 5 days continue coverage for CAP with Ceftriaxone + Azithromycin f/u procalcitonin Henny Nayak MD, FACP [facility] C: [phone] O: [phone] F: [phone] Subjective Date of service: 10/20/19 Interval history: No fever. Remains in ICU on high flow oxygen, intermittently needing BiPAP. Feels better today compared to yesterday. Still short of breath. Objective - Exam Narrative Exam: Physical Exam: Constitutional: Alert, cooperative. Resp distress. Morbid obesity Head, Ears, Nose: Normocephalic, atraumatic. External ears, nose normal Eyes: Conjunctivae/corneas clear. No icterus. No ptosis. Neck: Supple, no meningeal signs Cardiovascular: S1, S2 normal. Respiratory: AE fair b/l with some rhonchi GI: Soft, non-tender; bowel sounds normal. No peritoneal signs Musculoskeletal: No pedal edema, no cyanosis. Skin: No rash or abscess Hem/Lymphatic: No palpable cervical or supraclavicular nodes. No lymphangitis Psych: Mood ok. Affect normal Neurological: Awake, alert, oriented. No gross abnormality - Constitutional Vitals: Vital Signs Temp Pulse Resp BP Pulse Ox 99.4 F 81 28 H 108/55 93 10/20/19 12:00 10/20/19 16:31 10/20/19 16:31 10/20/19 16:30 10/20/19 16:30 Temperature -Last 24 Hours Temperature 99.4 F Temperature 97.7 F Temperature 98.7 F Temperature 98.5 F Temperature 97.7 F Temperature 99.1 F Temperature 97.7 F - Labs CBC & Chem 7: 10/20/19 14:51 10/20/19 14:51 Labs: Abnormal lab results 10/19/19 10/20/19 10/20/19 Range/Units 23:25 05:31 09:08 WBC (4.5-11.0) K/mm3 MCV (79-97) fl MCH (28-32) pg RDW (13.2-15.2) % POC ABG pH (7.35-7.45) POC ABG pO2 (80-105) Sodium (137-145) mmol/L Carbon Dioxide (22-30) mmol/L Creatinine (0.7-1.2) mg/dL Glucose (65-100) mg/dL POC Glucose 203 H 144 H 163 H (70-105) Calcium (8.4-10.2) mg/dL 10/20/19 10/20/19 10/20/19 Range/Units 10:25 13:22 14:51 WBC (4.5-11.0) K/mm3 MCV (79-97) fl MCH (28-32) pg RDW (13.2-15.2) % POC ABG pH 7.632 H (7.35-7.45) POC ABG pO2 74 L (80-105) Sodium 147 H (137-145) mmol/L Carbon Dioxide 31 H (22-30) mmol/L Creatinine 0.5 L (0.7-1.2) mg/dL Glucose 154 H (65-100) mg/dL POC Glucose 178 H (70-105) Calcium 8.2 L (8.4-10.2) mg/dL 10/20/19 Range/Units 14:51 WBC 11.2 H (4.5-11.0) K/mm3 MCV 78 L (79-97) fl MCH 25 L (28-32) pg RDW 23.9 H (13.2-15.2) % POC ABG pH (7.35-7.45) POC ABG pO2 (80-105) Sodium (137-145) mmol/L Carbon Dioxide (22-30) mmol/L Creatinine (0.7-1.2) mg/dL Glucose (65-100) mg/dL POC Glucose (70-105) Calcium (8.4-10.2) mg/dL
[2019-10-21] MEDS: FUROSEMIDE 40 MG/4 ML INJ IV SCH ×2 (06:12→18:29)
[2019-10-21] MEDS: HEPARIN 5,000 UNIT/1 ML VIAL SUB-Q SCH ×3 (06:12→22:02)
[2019-10-21] MEDS: IPRATROPIUM/ALBUTEROL SULFATE 3 ML AMPUL.NEB IH SCH ×3 (08:13→20:54)
[2019-10-21] MEDS: OSELTAMIVIR 75 MG CAP PO SCH ×2 (11:35→23:51)
[2019-10-21] MEDS: METOPROLOL TARTRATE 50 MG TAB PO SCH ×2 (11:35→22:03)
[2019-10-21] MEDS: PANTOPRAZOLE 40 MG TAB PO SCH (11:35)
[2019-10-21] MEDS: amLODIPine 10 MG TAB PO SCH (11:35)
[2019-10-21] MEDS: AZITHROMYCIN 250 MG TAB PO SCH (11:36)
[2019-10-21] MEDS: cefTRIAXone/NS 2 GM/100 ML 2 GM/100 ML BAG IV SCH (11:36)
--- NOTE | 2019-10-21 11:58 | Progress Note ---
Assessment and Plan Cultures: 10/17/2019 blood culture: No growth 10/17/2019 influenza A: Positive A/P: 49-year-old female with morbid obesity, hypertension, lymphedema, functional quadriplegia and sleep apnea admitted with: #Influenza A with acute respiratory failure: on BiPAP, Tamiflu and empiric abx. #Extreme morbid obesity: BMI is 93. OPTIMO trial for oseltamivir showed no difference in high dose v/s standard dose but the median BMI in the obese arm was only 33.8 and the highest BMI in that arm was 43. Hence, I think it would be appropriate to give his patient high dose Tamiflu. Recs: continue with high dose Tamiflu of 150 mg BID x 5 days procalcitonin is low, plan to d/c abx after today Henny Nayak MD, FACP [facility] C: [phone] O: [phone] F: [phone] Subjective Date of service: 10/21/19 Interval history: No fever. Remains in ICU. On biPAP today. Objective - Exam Narrative Exam: Physical Exam: Constitutional: Alert, cooperative. Resp distress, on BiPAP. Morbid obesity Head, Ears, Nose: Normocephalic, atraumatic. External ears, nose normal Eyes: Conjunctivae/corneas clear. No icterus. No ptosis. Neck: Supple, no meningeal signs Cardiovascular: S1, S2 normal. Respiratory: AE fair b/l with some rhonchi GI: Soft, non-tender; bowel sounds normal. No peritoneal signs Musculoskeletal: No pedal edema, no cyanosis. Skin: No rash or abscess Hem/Lymphatic: No palpable cervical or supraclavicular nodes. No lymphangitis Psych: Mood ok. Affect normal Neurological: Awake, alert, oriented. No gross abnormality - Constitutional Vitals: Vital Signs Temp Pulse Resp BP Pulse Ox 98.9 F 113 H 23 136/85 95 10/21/19 08:00 10/21/19 11:35 10/21/19 11:15 10/21/19 11:35 10/21/19 11:15 Temperature -Last 24 Hours Temperature 98.9 F Temperature 98.7 F Temperature 98.2 F Temperature 98.0 F Temperature 99.2 F Temperature 99.2 F Temperature 99.4 F - Labs CBC & Chem 7: 10/20/19 14:51 10/20/19 14:51 Labs: Abnormal lab results 10/20/19 10/20/19 10/20/19 Range/Units 13:22 14:51 14:51 WBC 11.2 H (4.5-11.0) K/mm3 MCV 78 L (79-97) fl MCH 25 L (28-32) pg RDW 23.9 H (13.2-15.2) % Sodium 147 H (137-145) mmol/L Carbon Dioxide 31 H (22-30) mmol/L Creatinine 0.5 L (0.7-1.2) mg/dL Glucose 154 H (65-100) mg/dL POC Glucose 178 H (70-105) Calcium 8.2 L (8.4-10.2) mg/dL 10/20/19 10/21/19 10/21/19 Range/Units 17:16 05:55 08:27 WBC (4.5-11.0) K/mm3 MCV (79-97) fl MCH (28-32) pg RDW (13.2-15.2) % Sodium (137-145) mmol/L Carbon Dioxide (22-30) mmol/L Creatinine (0.7-1.2) mg/dL Glucose (65-100) mg/dL POC Glucose 143 H 115 H 131 H (70-105) Calcium (8.4-10.2) mg/dL
--- NOTE | 2019-10-21 12:14 | Progress Note ---
Assessment and Plan - Patient Problems (1) Pulmonary edema Current Visit: Yes Status: Acute Plan to address problem: Patient's chest x-ray shows worsening bilateral pulmonary opacities. Findings are not likely cardiogenic, we will defer to pulmonary medicine for further workup of acute pulmonary infection or ARDS. Subjective Date of service: 10/21/19 Interval history: Patient is on BiPAP, due to worsening respiratory failure. Objective Vital Signs Temp Pulse Pulse Resp Resp BP Pulse Ox 10/21/19 11:35 113 H 136/85 10/21/19 11:15 89 23 127/79 95 10/21/19 11:00 101 H 30 H 127/79 93 10/21/19 10:45 95 H 20 129/83 98 10/21/19 10:30 98 H 26 H 129/83 94 10/21/19 10:15 96 H 30 H 134/80 93 10/21/19 10:00 98 H 32 H 134/80 92 10/21/19 09:45 101 H 13 118/80 96 10/21/19 09:30 104 H 31 H 118/80 95 10/21/19 09:15 107 H 36 H 126/88 96 10/21/19 09:00 100 H 28 H 126/88 94 10/21/19 08:45 97 H 29 H 126/72 93 10/21/19 08:30 104 H 33 H 126/72 96 10/21/19 08:26 108 H 36 H 10/21/19 08:15 99 H 19 130/81 94 10/21/19 08:08 102 H 34 H 130/81 93 10/21/19 08:00 98.9 F 99 H 20 130/81 94 10/21/19 07:45 101 H 36 H 131/91 92 10/21/19 07:30 96 H 36 H 133/81 10/21/19 07:15 99 H 40 H 130/83 83 L 10/21/19 07:00 29 H 130/83 93 10/21/19 06:45 91 H 33 H 131/91 90 10/21/19 06:30 101 H 31 H 131/91 89 10/21/19 06:15 97 H 37 H 124/81 91 10/21/19 06:00 90 33 H 133/76 88 10/21/19 05:45 96 H 33 H 124/79 91 10/21/19 05:30 97 H 30 H 124/81 88 10/21/19 05:16 96 H 34 H 124/79 88 10/21/19 05:00 96 H 36 H 124/79 91 10/21/19 04:48 98.7 F 10/21/19 04:45 94 H 34 H 132/81 88 10/21/19 04:30 93 H 33 H 132/81 90 10/21/19 04:24 89 30 H 129/75 91 10/21/19 04:15 94 H 33 H 129/75 91 10/21/19 04:00 90 31 H 129/75 92 10/21/19 03:45 87 28 H 130/75 92 10/21/19 03:30 85 32 H 130/75 92 10/21/19 03:15 85 30 H 136/78 92 10/21/19 03:00 90 32 H 121/76 93 10/21/19 02:45 78 30 H 136/78 91 10/21/19 02:30 86 32 H 136/78 91 10/21/19 02:15 85 31 H 132/72 92 10/21/19 02:00 87 28 H 138/80 91 10/21/19 01:45 91 H 33 H 132/72 91 10/21/19 01:30 79 28 H 132/72 93 10/21/19 01:15 86 29 H 127/75 87 10/21/19 01:00 83 30 H 127/75 91 10/21/19 00:45 84 32 H 130/82 91 10/21/19 00:38 82 27 H 130/82 100 10/21/19 00:31 98 H 24 136/87 80 L 10/21/19 00:15 82 31 H 136/87 97 10/21/19 00:00 82 32 H 136/87 94 10/20/19 23:45 80 32 H 127/77 94 10/20/19 23:30 88 35 H 127/77 95 10/20/19 23:23 98.2 F 10/20/19 23:19 88 42 H 138/83 90 10/20/19 23:15 87 34 H 138/83 94 10/20/19 23:00 83 37 H 138/83 95 10/20/19 22:45 93 H 32 H 136/85 97 10/20/19 22:30 97 H 30 H 136/85 98 10/20/19 22:15 103 H 33 H 138/85 97 10/20/19 22:10 97 H 121/93 10/20/19 22:00 104 H 28 H 121/93 94 10/20/19 21:45 94 H 20 138/85 97 10/20/19 21:30 97 H 31 H 138/85 95 10/20/19 21:15 99 H 22 132/83 95 10/20/19 21:00 97 H 32 H 132/83 93 10/20/19 20:45 99 H 33 H 130/83 93 10/20/19 20:34 95 H 97 H 10/20/19 20:30 100 H 31 H 130/83 88 10/20/19 20:20 93 10/20/19 20:15 103 H 28 H 95/56 93 10/20/19 20:08 98.0 F 97 H 32 H 95/56 93 10/20/19 20:01 105 H 31 H 95/56 91 10/20/19 20:00 102 H 18 92 10/20/19 19:45 102 H 32 H 114/53 94 10/20/19 19:31 111 H 34 H 114/53 84 10/20/19 19:15 100 H 35 H 128/83 90 10/20/19 19:00 98 H 32 H 128/83 95 10/20/19 18:45 106 H 37 H 113/62 96 10/20/19 18:30 102 H 33 H 113/62 97 10/20/19 18:15 110 H 36 H 127/74 95 10/20/19 18:00 93 H 32 H 127/74 94 10/20/19 17:45 98 H 27 H 112/56 92 10/20/19 17:30 106 H 28 H 112/56 85 10/20/19 17:15 105 H 21 116/62 86 10/20/19 17:00 101 H 24 116/62 85 10/20/19 16:45 99 H 22 108/55 83 L 10/20/19 16:31 81 28 H 10/20/19 16:30 86 31 H 108/55 93 10/20/19 16:26 82 27 H 115/59 92 10/20/19 16:15 87 33 H 115/59 93 10/20/19 16:00 99.2 F 84 33 H 115/59 94 10/20/19 15:45 85 34 H 108/57 95 10/20/19 15:30 83 29 H 108/57 95 10/20/19 15:15 86 29 H 137/62 95 10/20/19 15:01 91 H 35 H 137/62 96 10/20/19 14:45 86 31 H 127/72 91 10/20/19 14:30 93 H 22 127/72 94 10/20/19 14:15 86 30 H 121/73 88 10/20/19 14:00 85 29 H 121/73 91 10/20/19 13:45 87 24 110/56 92 10/20/19 13:30 92 H 19 110/56 85 10/20/19 13:15 91 H 25 H 111/63 83 L 10/20/19 13:00 90 25 H 111/63 84 10/20/19 12:45 89 18 128/68 80 L 10/20/19 12:30 80 10 L 128/68 86 10/20/19 12:15 74 16 147/73 86 - Physical Examination General: No Apparent Distress, Other (morbidly obese) HEENT: Positive: PERRL Neck: Positive: trachea midline Cardiac: Positive: Reg Rate and Rhythm Lungs: Positive: Decreased Breath Sounds Neuro: Positive: Grossly Intact Abdomen: Positive: Soft Skin: Positive: Clear Extremities: Absent: edema - Labs and Meds CBC 10/20/19 Range/Units 14:51 WBC 11.2 H (4.5-11.0) K/mm3 RBC 4.35 (3.65-5.03) M/mm3 Hgb 10.8 (10.1-14.3) gm/dl Hct 34.1 (30.3-42.9) % Plt Count 237 (140-440) K/mm3 Comprehensive Metabolic Panel 10/20/19 Range/Units 14:51 Sodium 147 H (137-145) mmol/L Potassium 3.7 (3.6-5.0) mmol/L Chloride 100.1 (98-107) mmol/L Carbon Dioxide 31 H (22-30) mmol/L BUN 15 (7-17) mg/dL Creatinine 0.5 L (0.7-1.2) mg/dL Glucose 154 H (65-100) mg/dL Calcium 8.2 L (8.4-10.2) mg/dL
--- NOTE | 2019-10-21 13:13 | Progress Note ---
Assessment and Plan Acute hypoxic-hypercapnic respiratory failure Bilateral alveolar infiltrates- possible heart failure-systolic Sepsis Influenza A pneumonia positive Acute diastolic heart failure suspected Extreme Obesity, BMI 93.6 Probable DEAN with OHS Functional quadriplegia h/o HTN -NIPPV -Aspiration precautions, HOB>40 degrees -Wean FIO2 for O2 sats 88-90% -Oxygen restrictive strategies -Limit narcotic analgesia and benzodiazepines, to avoid respiratory depression - Anti-virals for Influenza infection-ID following -Bronchodilators per protocol -Place on airborne isolation -VTE prophylaxis -Stress ulcer prophylaxis - Accuchecks with glycemic control for SSI (While critically ill target blood glucose of 140-180 mg/dL; avoid hypoglycemia) - mobility protocol for pressure ulcer prevention - Monitor hemodynamics closely -Monitor electrolyte profile closely and replete as indicated -Chronic home medications, resume as clinically indicated -Gentle diuresis while monitoring renal function -Blanchard catheter in this critically ill patient, with poor urine output, requiring accurate intake and output monitoring. She acutely de-saturates with minimal movement -PT/OT -Weight loss and life style modifications on discharge. May need surgical bariatric intervention( discussed this with her and her sister- mindy fagan does not have health insurance) -Out patient evaluation for sleep apnea Discussed with RT and RN Discussed with the patient, updated her Also updated her sister who was at the bedside CONDITION: CRITICAL PROGNOSIS: GUARDED CODE STATUS: FULL CODE The high probability of a clinically significant, sudden or life-threatening deterioration of the [respiratory, cardiovascular,] system(s) required my full and direct attention, intervention and personal management. The aggregate critical care time was [35] minutes without overlap. Time includes spent on; [x] Data Review and interpretation [x] Patient assessment and monitoring of vital signs [x] Documentation [x] Medication orders and management Subjective Date of service: 10/21/19 Interval history: Patient is seen today for: acute hypoxic respiratory failure; influenza infection; extreme obesity with probable DEAN Seen and examined at bedside; 24hour events reviewed; nursing and respiratory care staff consulted; no adverse overnight events reported to me; acute desaturations this morning, when she was turned to be cleaned- Pur wick bazzi d dislodged.. On going vaginal bleeding(menstrual cycle). NO fevers, no diarrhea, no vomiting. Patient is on BIPAP, resting peacefully in bed. Vitals, labs, medications, chart and imaging reviewed. Sister at the bedside. Objective - Exam Narrative Exam: Physical Exam: Constitutional: Alert, cooperative. Resp distress, on BiPAP. Extreme obesity Head, Ears, Nose: Normocephalic, atraumatic. External ears, nose normal Eyes: Conjunctivae/corneas clear. No icterus. No ptosis. Neck: Supple, no meningeal signs Cardiovascular: S1, S2 normal. Respiratory: Decreased AE bilaterally, CTA GI: Soft, non-tender; bowel sounds normal. No peritoneal signs Musculoskeletal: No pedal edema, no cyanosis. Skin: No rash or abscess Hem/Lymphatic: No palpable cervical or supraclavicular nodes. No lymphangitis Psych: Mood ok. Affect flat Neurological: Awake, alert, oriented. No gross abnormality Vital Signs - 12hr 10/21/19 10/21/19 10/21/19 01:15 01:30 01:45 Temperature Pulse Rate 86 79 91 H Pulse Rate [ Bilateral] Respiratory 29 H 28 H 33 H Rate Respiratory Rate [Bilateral ] Blood Pressure 127/75 132/72 132/72 O2 Sat by Pulse 87 93 91 Oximetry 10/21/19 10/21/19 10/21/19 02:00 02:15 02:30 Temperature Pulse Rate 87 85 86 Pulse Rate [ Bilateral] Respiratory 28 H 31 H 32 H Rate Respiratory Rate [Bilateral ] Blood Pressure 138/80 132/72 136/78 O2 Sat by Pulse 91 92 91 Oximetry 10/21/19 10/21/19 10/21/19 02:45 03:00 03:15 Temperature Pulse Rate 78 90 85 Pulse Rate [ Bilateral] Respiratory 30 H 32 H 30 H Rate Respiratory Rate [Bilateral ] Blood Pressure 136/78 121/76 136/78 O2 Sat by Pulse 91 93 92 Oximetry 10/21/19 10/21/19 10/21/19 03:30 03:45 04:00 Temperature Pulse Rate 85 87 90 Pulse Rate [ Bilateral] Respiratory 32 H 28 H 31 H Rate Respiratory Rate [Bilateral ] Blood Pressure 130/75 130/75 129/75 O2 Sat by Pulse 92 92 92 Oximetry 10/21/19 10/21/19 10/21/19 04:15 04:24 04:30 Temperature Pulse Rate 94 H 89 93 H Pulse Rate [ Bilateral] Respiratory 33 H 30 H 33 H Rate Respiratory Rate [Bilateral ] Blood Pressure 129/75 129/75 132/81 O2 Sat by Pulse 91 91 90 Oximetry 10/21/19 10/21/19 10/21/19 04:45 04:48 05:00 Temperature 98.7 F Pulse Rate 94 H 96 H Pulse Rate [ Bilateral] Respiratory 34 H 36 H Rate Respiratory Rate [Bilateral ] Blood Pressure 132/81 124/79 O2 Sat by Pulse 88 91 Oximetry 10/21/19 10/21/19 10/21/19 05:16 05:30 05:45 Temperature Pulse Rate 96 H 97 H 96 H Pulse Rate [ Bilateral] Respiratory 34 H 30 H 33 H Rate Respiratory Rate [Bilateral ] Blood Pressure 124/79 124/81 124/79 O2 Sat by Pulse 88 88 91 Oximetry 10/21/19 10/21/19 10/21/19 06:00 06:15 06:30 Temperature Pulse Rate 90 97 H 101 H Pulse Rate [ Bilateral] Respiratory 33 H 37 H 31 H Rate Respiratory Rate [Bilateral ] Blood Pressure 133/76 124/81 131/91 O2 Sat by Pulse 88 91 89 Oximetry 10/21/19 10/21/19 10/21/19 06:45 07:00 07:15 Temperature Pulse Rate 91 H 99 H Pulse Rate [ Bilateral] Respiratory 33 H 29 H 40 H Rate Respiratory Rate [Bilateral ] Blood Pressure 131/91 130/83 130/83 O2 Sat by Pulse 90 93 83 L Oximetry 10/21/19 10/21/19 10/21/19 07:30 07:45 08:00 Temperature 98.9 F Pulse Rate 96 H 101 H 99 H Pulse Rate [ Bilateral] Respiratory 36 H 36 H 20 Rate Respiratory Rate [Bilateral ] Blood Pressure 133/81 131/91 130/81 O2 Sat by Pulse 92 94 Oximetry 10/21/19 10/21/19 10/21/19 08:08 08:15 08:26 Temperature Pulse Rate 102 H 99 H Pulse Rate [ 108 H Bilateral] Respiratory 34 H 19 Rate Respiratory 36 H Rate [Bilateral ] Blood Pressure 130/81 130/81 O2 Sat by Pulse 93 94 Oximetry 10/21/19 10/21/19 10/21/19 08:30 08:45 09:00 Temperature Pulse Rate 104 H 97 H 100 H Pulse Rate [ Bilateral] Respiratory 33 H 29 H 28 H Rate Respiratory Rate [Bilateral ] Blood Pressure 126/72 126/72 126/88 O2 Sat by Pulse 96 93 94 Oximetry 01/11/0910/21/19 10/21/19 09:15 09:30 09:45 Temperature Pulse Rate 107 H 104 H 101 H Pulse Rate [ Bilateral] Respiratory 36 H 31 H 13 Rate Respiratory Rate [Bilateral ] Blood Pressure 126/88 118/80 118/80 O2 Sat by Pulse 96 95 96 Oximetry 10/21/19 10/21/19 10/21/19 10:00 10:15 10:30 Temperature Pulse Rate 98 H 96 H 98 H Pulse Rate [ Bilateral] Respiratory 32 H 30 H 26 H Rate Respiratory Rate [Bilateral ] Blood Pressure 134/80 134/80 129/83 O2 Sat by Pulse 92 93 94 Oximetry 10/21/19 10/21/19 10/21/19 10:45 11:00 11:15 Temperature Pulse Rate 95 H 101 H 89 Pulse Rate [ Bilateral] Respiratory 20 30 H 23 Rate Respiratory Rate [Bilateral ] Blood Pressure 129/83 127/79 127/79 O2 Sat by Pulse 98 93 95 Oximetry 10/21/19 10/21/19 10/21/19 11:30 11:35 11:45 Temperature Pulse Rate 88 113 H 104 H Pulse Rate [ Bilateral] Respiratory 24 22 Rate Respiratory Rate [Bilateral ] Blood Pressure 136/85 136/85 136/85 O2 Sat by Pulse 91 91 Oximetry 10/21/19 10/21/19 10/21/19 12:00 12:15 12:30 Temperature 98.4 F Pulse Rate 98 H 85 82 Pulse Rate [ Bilateral] Respiratory 31 H 30 H 29 H Rate Respiratory Rate [Bilateral ] Blood Pressure 129/82 129/82 123/77 O2 Sat by Pulse 94 95 94 Oximetry 10/21/19 12:37 Temperature Pulse Rate 83 Pulse Rate [ Bilateral] Respiratory 30 H Rate Respiratory Rate [Bilateral ] Blood Pressure 123/77 O2 Sat by Pulse 92 Oximetry CBC and BMP: 10/20/19 14:51 10/20/19 14:51 ABG, PT/INR, D-dimer: ABG POC ABG pH 7.632 (7.35-7.45) H 10/20/19 10:25 ABG pH 7.394 pH Units (7.350-7.450) 10/18/19 09:19 POC ABG pCO2 39.4 (35-45) 10/20/19 10:25 ABG pCO2 50.6 mm Hg 10/18/19 09:19 POC ABG pO2 74 (80-105) L 10/20/19 10:25 ABG pO2 131.3 mm Hg (80.0-90.0) H 10/18/19 09:19 POC ABG HCO3 41.6 (22-26 mml/L) 10/20/19 10:25 POC ABG Total CO2 43 (23-27mmol/L) 10/20/19 10:25 POC ABG O2 Sat 97 10/20/19 10:25 ABG O2 Saturation 98.5 % (95.0-99.0) 10/18/19 09:19 Abnormal lab findings: Abnormal Labs 10/17/19 10/17/19 10/17/19 20:57 20:57 Unknown WBC 4.0 L MCV 78 L MCH 25 L RDW 24.7 H Lymph % (Auto) Benson % (Auto) Lymph # Seg Neutrophils % Seg Neuts % (Manual) 77.0 H Monocytes % (Manual) 9.0 H Lymphocytes # (Manual) 0.6 L POC ABG pH POC ABG pCO2 POC ABG pO2 ABG pO2 ABG HCO3 ABG Base Excess ABG Hemoglobin Sodium Potassium 3.5 L Carbon Dioxide Creatinine 0.6 L Glucose 147 H POC Glucose Calcium 7.9 L AST 57 H Total Creatine Kinase 857 H Albumin 3.0 L Influenza A (Rapid) Positive A 10/18/19 10/18/19 10/18/19 05:21 05:21 09:19 WBC 3.3 L MCV MCH 25 L RDW 24.3 H Lymph % (Auto) 12.5 L Benson % (Auto) 7.9 H Lymph # 0.4 L Seg Neutrophils % 78.6 H Seg Neuts % (Manual) Monocytes % (Manual) Lymphocytes # (Manual) POC ABG pH POC ABG pCO2 POC ABG pO2 ABG pO2 131.3 H ABG HCO3 30.2 H ABG Base Excess 4.5 H ABG Hemoglobin 10.7 L Sodium Potassium Carbon Dioxide Creatinine Glucose 167 H POC Glucose Calcium 8.3 L AST Total Creatine Kinase Albumin Influenza A (Rapid) 10/18/19 10/18/19 10/19/19 11:28 18:27 06:39 WBC MCV MCH RDW Lymph % (Auto) Benson % (Auto) Lymph # Seg Neutrophils % Seg Neuts % (Manual) Monocytes % (Manual) Lymphocytes # (Manual) POC ABG pH 7.461 H 7.487 H POC ABG pCO2 53.4 H 52.8 H 51.7 H POC ABG pO2 70 L 71 L ABG pO2 ABG HCO3 ABG Base Excess ABG Hemoglobin Sodium Potassium Carbon Dioxide Creatinine Glucose POC Glucose Calcium AST Total Creatine Kinase Albumin Influenza A (Rapid) 10/19/19 10/20/19 10/20/19 23:25 05:31 09:08 WBC MCV MCH RDW Lymph % (Auto) Benson % (Auto) Lymph # Seg Neutrophils % Seg Neuts % (Manual) Monocytes % (Manual) Lymphocytes # (Manual) POC ABG pH POC ABG pCO2 POC ABG pO2 ABG pO2 ABG HCO3 ABG Base Excess ABG Hemoglobin Sodium Potassium Carbon Dioxide Creatinine Glucose POC Glucose 203 H 144 H 163 H Calcium AST Total Creatine Kinase Albumin Influenza A (Rapid) 10/20/19 10/20/19 10/20/19 10:25 13:22 14:51 WBC MCV MCH RDW Lymph % (Auto) Benson % (Auto) Lymph # Seg Neutrophils % Seg Neuts % (Manual) Monocytes % (Manual) Lymphocytes # (Manual) POC ABG pH 7.632 H POC ABG pCO2 POC ABG pO2 74 L ABG pO2 ABG HCO3 ABG Base Excess ABG Hemoglobin Sodium 147 H Potassium Carbon Dioxide 31 H Creatinine 0.5 L Glucose 154 H POC Glucose 178 H Calcium 8.2 L AST Total Creatine Kinase Albumin Influenza A (Rapid) 10/20/19 10/20/19 10/21/19 14:51 17:16 05:55 WBC 11.2 H MCV 78 L MCH 25 L RDW 23.9 H Lymph % (Auto) Benson % (Auto) Lymph # Seg Neutrophils % Seg Neuts % (Manual) Monocytes % (Manual) Lymphocytes # (Manual) POC ABG pH POC ABG pCO2 POC ABG pO2 ABG pO2 ABG HCO3 ABG Base Excess ABG Hemoglobin Sodium Potassium Carbon Dioxide Creatinine Glucose POC Glucose 143 H 115 H Calcium AST Total Creatine Kinase Albumin Influenza A (Rapid) 10/21/19 10/21/19 08:27 11:52 WBC MCV MCH RDW Lymph % (Auto) Benson % (Auto) Lymph # Seg Neutrophils % Seg Neuts % (Manual) Monocytes % (Manual) Lymphocytes # (Manual) POC ABG pH POC ABG pCO2 POC ABG pO2 ABG pO2 ABG HCO3 ABG Base Excess ABG Hemoglobin Sodium Potassium Carbon Dioxide Creatinine Glucose POC Glucose 131 H 122 H Calcium AST Total Creatine Kinase Albumin Influenza A (Rapid)
--- NOTE | 2019-10-21 15:25 | Progress Note ---
Assessment and Plan Assessment and plan: Patient is a 49 yo woman with a history of severe obesity BMI 93.6 (579 lbs), hypertension, lymphedema, functional quadriplegia and DEAN non compliant with CPAP who presents to [facility] ED with SOB and found to be hypoxic with pulse ox in the 50s. She was treated with BIPAP. * pCXR shows Probable congestive heart failure * TTE Conclusions: The left ventricular size is mildly dilated, mild to moderate concentric LVH, est EF 40-45%, left atrium is mildly dilated, trace MR, mild TR, mild to moderate Pulmonary hypertension, RVSP is calculated at 42 mmHG Acute hypoxic respiratory failure: treat with O2 via NIPPV, close to being intubated Sepsis Influenza A pneumonia positive: start treatment with Tamiflu, consulted ID, isolation Acute diastolic heart failure suspected: diuresis with iv lasix, consult Cardiology, ECHO done but not read Bronchospasm: added duonebs around the clock and ordered a dose of iv solumedrol, consulted Pulm/CCM Extreme Obesity, BMI 93.6: supportive care, consult Integrity Engineer DVT ppx sq heparin full code She is still on FIO2 100% bipap, very close to be intubated, one sister at bedside. History Interval history: Patient was seen and examined. Follow-up on current diagnosis of respiratory failure, influenza pna. Overnight uneventful as no events directly reported to me. Patient denies any chest pain, nausea/vomiting or severe headaches. Imaging, nursing note, chart, labs and old chart reviewed. Discussed with patient and mother at bedside. Still on bipap. still with conversational dyspnea. still ill appearing, i was given report this morning that she had severe bronchospasm when bipap taken off. I ordered duonebs around the clock and one dose of iv steroids. Hospitalist Physical - Physical exam Narrative exam: Gen: ill appearing, bmi 93.6 Awake, Alert, Orientated HEENT: NCAT, EOMI, PERRL, OP Clear Neck: supple, no adenopathy, no thyromegaly, equiv JVD CVS/Heart: RRR, normal S1S2, pulses present bilaterally Chest/Lungs: diminished bs bilateral with wheezing, Symmetrical chest expansion, good air entry bilaterally GI/Abdomen: soft, NTND, good bowel sounds, no guarding or rebound /Bladder: no suprapubic tenderness, no CVA or paraspinal tenderness Extermity/Skin: ble edema improved MSK: FROM x 4 Neuro: CN 2-12 grossly intact, no new focal deficits Psych: calm - Constitutional Vitals: Temp Pulse Resp BP Pulse Ox 98.4 F 95 H 18 129/79 88 10/21/19 12:00 10/21/19 15:15 10/21/19 15:15 10/21/19 15:15 10/21/19 15:15 General appearance: Present: obese. Absent: mild distress Results - Labs CBC & Chem 7: 10/20/19 14:51 10/20/19 14:51 Labs: Laboratory Last Values WBC 11.2 K/mm3 (4.5-11.0) H 10/20/19 14:51 RBC 4.35 M/mm3 (3.65-5.03) 10/20/19 14:51 Hgb 10.8 gm/dl (10.1-14.3) 10/20/19 14:51 Hct 34.1 % (30.3-42.9) 10/20/19 14:51 MCV 78 fl (79-97) L 10/20/19 14:51 MCH 25 pg (28-32) L 10/20/19 14:51 MCHC 32 % (30-34) 10/20/19 14:51 RDW 23.9 % (13.2-15.2) H 10/20/19 14:51 Plt Count 237 K/mm3 (140-440) 10/20/19 14:51 Lymph % (Auto) 12.5 % (13.4-35.0) L 10/18/19 05:21 [place] % (Auto) 7.9 % (0.0-7.3) H 10/18/19 05:21 Eos % (Auto) 0.0 % (0.0-4.3) 10/18/19 05:21 Baso % (Auto) 1.0 % (0.0-1.8) 10/18/19 05:21 Lymph # 0.4 K/mm3 (1.2-5.4) L 10/18/19 05:21 [place] # 0.3 K/mm3 (0.0-0.8) 10/18/19 05:21 Eos # 0.0 K/mm3 (0.0-0.4) 10/18/19 05:21 Baso # 0.0 K/mm3 (0.0-0.1) 10/18/19 05:21 Add Manual Diff Complete 10/17/19 20:57 Total Counted 100 10/17/19 20:57 Seg Neutrophils % 78.6 % (40.0-70.0) H 10/18/19 05:21 Seg Neuts % (Manual) 77.0 % (40.0-70.0) H 10/17/19 20:57 Band Neutrophils % 0 % 10/17/19 20:57 Lymphocytes % (Manual) 14.0 % (13.4-35.0) 10/17/19 20:57 Reactive Lymphs % (Man) 0 % 10/17/19 20:57 Monocytes % (Manual) 9.0 % (0.0-7.3) H 10/17/19 20:57 Eosinophils % (Manual) 0 % (0.0-4.3) 10/17/19 20:57 Basophils % (Manual) 0 % (0.0-1.8) 10/17/19 20:57 Metamyelocytes % 0 % 10/17/19 20:57 Myelocytes % 0 % 10/17/19 20:57 Promyelocytes % 0 % 10/17/19 20:57 Blast Cells % 0 % 10/17/19 20:57 Nucleated RBC % Not Reportable 10/17/19 20:57 Seg Neutrophils # 2.6 K/mm3 (1.8-7.7) 10/18/19 05:21 Seg Neutrophils # Man 3.1 K/mm3 (1.8-7.7) 10/17/19 20:57 Band Neutrophils # 0.0 K/mm3 10/17/19 20:57 Lymphocytes # (Manual) 0.6 K/mm3 (1.2-5.4) L 10/17/19 20:57 Abs React Lymphs (Man) 0.0 K/mm3 10/17/19 20:57 Monocytes # (Manual) 0.4 K/mm3 (0.0-0.8) 10/17/19 20:57 Eosinophils # (Manual) 0.0 K/mm3 (0.0-0.4) 10/17/19 20:57 Basophils # (Manual) 0.0 K/mm3 (0.0-0.1) 10/17/19 20:57 Metamyelocytes # 0.0 K/mm3 10/17/19 20:57 Myelocytes # 0.0 K/mm3 10/17/19 20:57 Promyelocytes # 0.0 K/mm3 10/17/19 20:57 Blast Cells # 0.0 K/mm3 10/17/19 20:57 WBC Morphology Not Reportable 10/17/19 20:57 Hypersegmented Neuts Not Reportable 10/17/19 20:57 Hyposegmented Neuts Not Reportable 10/17/19 20:57 Hypogranular Neuts Not Reportable 10/17/19 20:57 Smudge Cells Not Reportable 10/17/19 20:57 Toxic Granulation Not Reportable 10/17/19 20:57 Toxic Vacuolation Not Reportable 10/17/19 20:57 Dohle Bodies Not Reportable 10/17/19 20:57 Pelger-Huet Anomaly Not Reportable 10/17/19 20:57 Krista Rods Not Reportable 10/17/19 20:57 Platelet Estimate Not Reportable 10/17/19 20:57 Clumped Platelets Not Reportable 10/17/19 20:57 Plt Clumps, EDTA Not Reportable 10/17/19 20:57 Large Platelets Not Reportable 10/17/19 20:57 Giant Platelets Not Reportable 10/17/19 20:57 Platelet Satelliting Not Reportable 10/17/19 20:57 Plt Morphology Comment Not Reportable 10/17/19 20:57 RBC Morphology Not Reportable 10/17/19 20:57 Dimorphic RBCs Not Reportable 10/17/19 20:57 Polychromasia Not Reportable 10/17/19 20:57 Hypochromasia 1+ 10/17/19 20:57 Poikilocytosis Not Reportable 10/17/19 20:57 Anisocytosis 2+ 10/17/19 20:57 Microcytosis Not Reportable 10/17/19 20:57 Macrocytosis Not Reportable 10/17/19 20:57 Spherocytes Not Reportable 10/17/19 20:57 Pappenheimer Bodies Not Reportable 10/17/19 20:57 Sickle Cells Not Reportable 10/17/19 20:57 Target Cells Not Reportable 10/17/19 20:57 Tear Drop Cells Not Reportable 10/17/19 20:57 Ovalocytes Not Reportable 10/17/19 20:57 Helmet Cells Not Reportable 10/17/19 20:[address] [place] Bodies Not Reportable 10/17/19 20:57 Wallace Rings Not Reportable 10/17/19 20:57 James Cells Not Reportable 10/17/19 20:57 Bite Cells Not Reportable 10/17/19 20:57 Crenated Cell Not Reportable 10/17/19 20:57 Elliptocytes Not Reportable 10/17/19 20:57 Acanthocytes (Spur) Not Reportable 10/17/19 20:57 Rouleaux Not Reportable 10/17/19 20:57 Hemoglobin C Crystals Not Reportable 10/17/19 20:57 Schistocytes Not Reportable 10/17/19 20:57 Malaria parasites Not Reportable 10/17/19 20:57 Alejandro Bodies Not Reportable 10/17/19 20:57 Hem Pathologist Commnt No 10/17/19 20:57 POC ABG pH 7.632 (7.35-7.45) H 10/20/19 10:25 ABG pH 7.394 pH Units (7.350-7.450) 10/18/19 09:19 POC ABG pCO2 39.4 (35-45) 10/20/19 10:25 ABG pCO2 50.6 mm Hg 10/18/19 09:19 POC ABG pO2 74 (80-105) L 10/20/19 10:25 ABG pO2 131.3 mm Hg (80.0-90.0) H 10/18/19 09:19 POC ABG HCO3 41.6 (22-26 mml/L) 10/20/19 10:25 ABG HCO3 30.2 mmol/L (20.0-26.0) H 10/18/19 09:19 POC ABG Total CO2 43 (23-27mmol/L) 10/20/19 10:25 POC ABG O2 Sat 97 10/20/19 10:25 ABG O2 Saturation 98.5 % (95.0-99.0) 10/18/19 09:19 ABG O2 Content 14.8 (0.0-44) 10/18/19 09:19 POC ABG Base Excess 21 ((-2) - (+3)mmol/L) 10/20/19 10:25 ABG Base Excess 4.5 mmol/L (-2.0-3.0) H 10/18/19 09:19 ABG Hemoglobin 10.7 gm/dl (12.0-16.0) L 10/18/19 09:19 ABG Carboxyhemoglobin 1.2 % (0.0-5.0) 10/18/19 09:19 ABG Methemoglobin 0.4 % (0.0-1.5) 10/18/19 09:19 Oxyhemoglobin 96.9 % (95.0-99.0) 10/18/19 09:19 FiO2 100 % 10/20/19 10:25 Sodium 147 mmol/L (137-145) H 10/20/19 14:51 Potassium 3.7 mmol/L (3.6-5.0) 10/20/19 14:51 Chloride 100.1 mmol/L (98-107) 10/20/19 14:51 Carbon Dioxide 31 mmol/L (22-30) H 10/20/19 14:51 Anion Gap 20 mmol/L 10/20/19 14:51 BUN 15 mg/dL (7-17) 10/20/19 14:51 Creatinine 0.5 mg/dL (0.7-1.2) L 10/20/19 14:51 Estimated GFR > 60 ml/min 10/20/19 14:51 BUN/Creatinine Ratio 30 % 10/20/19 14:51 Glucose 154 mg/dL (65-100) H 10/20/19 14:51 POC Glucose 122 (70-105) H 10/21/19 11:52 Calcium 8.2 mg/dL (8.4-10.2) L 10/20/19 14:51 Total Bilirubin 0.20 mg/dL (0.1-1.2) 10/17/19 20:57 AST 57 units/L (5-40) H 10/17/19 20:57 ALT 22 units/L (7-56) 10/17/19 20:57 Alkaline Phosphatase 67 units/L (35-129) 10/17/19 20:57 Total Creatine Kinase 857 units/L (30-135) H 10/17/19 20:57 CK-MB (CK-2) 2.6 ng/mL (0.0-4.0) 10/17/19 20:57 CK-MB (CK-2) Rel Index 0.3 (0-4) 10/17/19 20:57 Troponin T < 0.010 ng/mL (0.00-0.029) 10/17/19 20:57 NT-Pro-B Natriuret Pep 317.6 pg/mL (0-450) 10/17/19 20:57 Total Protein 7.1 g/dL (6.3-8.2) 10/17/19 20:57 Albumin 3.0 g/dL (3.9-5) L 10/17/19 20:57 Albumin/Globulin Ratio 0.7 % 10/17/19 20:57 Procalcitonin 0.06 ng/mL (<0.15) 10/20/19 14:51 Influenza A (Rapid) Positive (Negative) A 10/17/19 Unknown Influenza B (Rapid) Negative (Negative) 10/17/19 Unknown Active Medications - Current Medications Current Medications: Generic Name Dose Route Start Last Admin Trade Name Freq PRN Reason Stop Dose Admin Albuterol 2.5 mg 10/17/19 22:47 10/19/19 14:34 Proventil IH 2.5 mg Q3HRT PRN Administration Shortness Of Breath Albuterol/Ipratropium 1 ampul 10/19/19 20:00 10/21/19 13:46 Duoneb *Not For Prn Use* IH 1 ampul TIDRT EDI Administration Amlodipine Besylate 10 mg 10/18/19 10:00 10/21/19 11:35 Amlodipine PO 10 mg DAILY EDI Administration Azithromycin 500 mg 10/19/19 17:00 10/21/19 11:36 Zithromax PO 500 mg QDAY EDI Administration Furosemide 40 mg 10/18/19 06:00 10/21/19 06:12 Lasix IV 40 mg BID@0600,1800 EDI Administration Heparin Sodium (Porcine) 5,000 unit 10/18/19 06:00 10/21/19 06:12 Heparin SUB-Q 5,000 unit Q8HR EDI Administration Ceftriaxone Sodium 2 gm in 100 mls @ 200 mls/hr 10/19/19 16:00 10/21/19 11:36 Rocephin/Ns 2 Gm/100 Ml IV 200 mls/hr Q24HR EDI Administration Protocol Lorazepam 1 mg 10/17/19 20:39 10/19/19 17:00 Ativan IV 1 mg ONCE PRN Administration Anxiety Magnesium Hydroxide 30 ml 10/17/19 22:47 Milk Of Magnesia PO Q4H PRN Constipation Metoprolol Tartrate 50 mg 10/18/19 10:00 10/21/19 11:35 Metoprolol PO 50 mg BID EDI Administration Morphine Sulfate 2 mg 10/17/19 22:47 Morphine IV Q4H PRN Pain, Moderate (4-6) Ondansetron HCl 4 mg 10/17/19 22:47 Zofran IV Q8H PRN Nausea And Vomiting Oseltamivir Phosphate 150 mg 10/19/19 15:40 10/21/19 11:35 Tamiflu PO 10/22/19 23:31 150 mg 1130,2330 EDI Administration Pantoprazole Sodium 40 mg 10/21/19 10:00 10/21/19 11:35 Protonix PO 40 mg DAILY EDI Administration Sodium Chloride 10 ml 10/18/19 10:00 10/21/19 11:36 Sodium Chloride Flush Syringe 10 Ml IV 10 ml BID EDI Administration Sodium Chloride 10 ml 10/17/19 22:47 Sodium Chloride Flush Syringe 10 Ml IV PRN PRN LINE FLUSH Nutrition/Malnutrition Assess - Dietary Evaluation Nutrition/Malnutrition Findings: Nutrition Notes Start: 10/19/19 13:20 Freq: Status: Active Protocol: Document 10/20/19 16:48 LM (Rec: 10/20/19 16:50 LM [email or web address]) Nutrition Notes Need for Assessment generated from: MD Order,Education Initial or Follow up Brief Note Subjective/Other Information Md consult for diet education regarding obesity. Pt with contact isolation and bipap. Nutrition Intervention Follow-Up By: 10/22/19 Additional Comments F/U for diet education, assessment needs
[2019-10-22 00:56] LABS: ABG Base Excess 12.6 mmol/L (-2.0-3.0); ABG HCO3 36.8 mmol/L (20.0-26.0); ABG Methemoglobin 0.5 % (0.0-1.5); ABG PCO2 46.1 mm Hg; ABG PH 7.52 pH Units (7.350-7.450); ABG PO2 64.4 mm Hg (80.0-90.0)
--- NOTE | 2019-10-22 06:02 | Progress Note ---
Assessment and Plan Acute hypoxic-hypercapnic respiratory failure Bilateral alveolar infiltrates- possible heart failure-systolic Sepsis Influenza A pneumonia positive Acute diastolic heart failure suspected Extreme Obesity, BMI 93.6 Probable DEAN with OHS Functional quadriplegia h/o HTN Pulmonary HTN -NIPPV continuous , trial of high flow -Steroids for 24-48 hours -Keep negative to even fluid balance as tolerated by renal function and hemodynamics -Updated sister a the bedside- I am optimizing NIPPV and high flow oxygen to avoid oral intubation, but if contiues to be BIPAP dependant we may have to intubate her and place on MVS -Aspiration precautions, HOB>40 degrees -Wean FIO2 for O2 sat s88-90% follow up ABG at 6pm -Oxygen restrictive strategies -CXR in 48 hours once volume status is optimized -Limit narcotic analgesia and benzodiazepines, to avoid respiratory depression - Anti-virals for Influenza infection -Bronchodilators per protocol -Place on airborne isolation -VTE prophylaxis -Stress ulcer prophylaxis - Accuchecks with glycemic control for SSI (While critically ill target blood glucose of 140-180 mg/dL; avoid hypoglycemia) - mobility protocol for pressure ulcer prevention - Monitor hemodynamics closely -Monitor electrolyte profile closely and replete as indicated -Chronic home medications, resume as clinically indicated -Follow up transthoracic echocardiogram to evaluate LVEF and for pulmonary HTN -Gentle diuresis while monitoring renal function -Blanchard catheter in this critically ill patient, with poor urine output, requiring accurate intake and output monitoring. She acutely de-saturates with minimal movement -PT/OT -Weight loss and life style modifications on discharge. May need surgical bariatric intervention -Out patient evaluation for sleep apnea Discussed with RT and RN Discussed with the patient, updated her Also updated her sister who was at the bedside CONDITION: CRITICAL PROGNOSIS: GUARDED CODE STATUS: FULL CODE The high probability of a clinically significant, sudden or life-threatening deterioration of the [respiratory, cardiovascular,] system(s) required my full and direct attention, intervention and personal management. The aggregate critical care time was [35] minutes without overlap. Time includes spent on; [x] Data Review and interpretation [x] Patient assessment and monitoring of vital signs [x] Documentation [x] Medication orders and management Subjective Date of service: 10/22/19 Interval history: Patient is seen today for: acute hypoxic respiratory failure; influenza infection; extreme obesity with probable DEAN Seen and examined at bedside; 24hour events reviewed; nursing and respiratory care staff consulted; no adverse overnight events reported to me; acute desaturations this morning, when she was turned to be cleaned- Pur wick had dislodged.. On going vaginal bleeding(menstrual cycle). NO fevers, no diarrhea, no vomiting. Patient is on BIPAP, resting peacefully in bed. Vitals, labs, medications, chart and imaging reviewed. Sister at the bedside. Objective - Exam Narrative Exam: Physical Exam: Vitals reviewed Constitutional:on BIPAP via full face mask, Morbidly obese Head, Ears, Nose: Normocephalic, atraumatic. External ears, nose normal Eyes: Conjunctivae/corneas clear. No icterus. No ptosis. Neck: intubated Oral: intubated Cardiovascular: S1, S2 normal. Respiratory: Good air entry, clear to auscultation bilaterally GI: Soft, non-tender; bowel sounds normal. No peritoneal signs Musculoskeletal: No pedal edema, no cyanosis. Skin: No rash or abscess. No wounds Hem/Lymphatic: No palpable cervical or supraclavicular nodes. No lymphangitis Psych: no agitation Neurological: awake, alert, oriented x3 Vital Signs - 12hr 10/21/19 10/21/19 10/21/19 18:15 18:30 18:45 Temperature Pulse Rate 100 H 97 H 100 H Pulse Rate [ Bilateral] Pulse Rate [ From Monitor] Respiratory 22 14 16 Rate Respiratory Rate [Bilateral ] Blood Pressure 114/60 118/81 118/81 O2 Sat by Pulse 95 93 83 L Oximetry 10/21/19 10/21/19 10/21/19 19:00 19:15 19:30 Temperature Pulse Rate 96 H 100 H 99 H Pulse Rate [ Bilateral] Pulse Rate [ From Monitor] Respiratory 22 15 23 Rate Respiratory Rate [Bilateral ] Blood Pressure 121/77 121/77 128/83 O2 Sat by Pulse 92 95 93 Oximetry 10/21/19 10/21/19 10/21/19 19:45 19:53 20:00 Temperature 98.4 F Pulse Rate 104 H 105 H Pulse Rate [ Bilateral] Pulse Rate [ 107 H From Monitor] Respiratory 15 20 Rate Respiratory Rate [Bilateral ] Blood Pressure 128/83 112/62 O2 Sat by Pulse 95 90 87 Oximetry 10/21/19 10/21/19 10/21/19 20:15 20:30 20:45 Temperature Pulse Rate 110 H 100 H 108 H Pulse Rate [ Bilateral] Pulse Rate [ From Monitor] Respiratory 27 H 30 H 35 H Rate Respiratory Rate [Bilateral ] Blood Pressure 112/62 117/69 117/69 O2 Sat by Pulse 85 96 97 Oximetry 10/21/19 10/21/19 10/21/19 20:55 20:57 21:00 Temperature Pulse Rate 104 H 105 H Pulse Rate [ 104 H Bilateral] Pulse Rate [ From Monitor] Respiratory 36 H 33 H Rate Respiratory 35 H Rate [Bilateral ] Blood Pressure 117/69 130/79 O2 Sat by Pulse 94 96 Oximetry 10/21/19 10/21/19 10/21/19 21:15 21:30 21:45 Temperature Pulse Rate 115 H 105 H 105 H Pulse Rate [ Bilateral] Pulse Rate [ From Monitor] Respiratory 19 20 26 H Rate Respiratory Rate [Bilateral ] Blood Pressure 130/79 118/63 118/63 O2 Sat by Pulse 90 88 93 Oximetry 10/21/19 10/21/19 10/21/19 22:00 22:03 22:15 Temperature Pulse Rate 108 H 108 H 110 H Pulse Rate [ Bilateral] Pulse Rate [ From Monitor] Respiratory 24 22 Rate Respiratory Rate [Bilateral ] Blood Pressure 131/82 131/82 118/63 O2 Sat by Pulse 90 91 Oximetry 10/21/19 10/21/19 10/21/19 22:30 22:45 23:00 Temperature Pulse Rate 98 H 92 H 85 Pulse Rate [ Bilateral] Pulse Rate [ From Monitor] Respiratory 29 H 22 30 H Rate Respiratory Rate [Bilateral ] Blood Pressure 137/80 131/82 121/76 O2 Sat by Pulse 92 87 90 Oximetry 10/21/19 10/21/19 10/21/19 23:15 23:30 23:37 Temperature Pulse Rate 78 96 H 107 H Pulse Rate [ Bilateral] Pulse Rate [ From Monitor] Respiratory 18 11 L 19 Rate Respiratory Rate [Bilateral ] Blood Pressure 121/76 118/82 118/82 O2 Sat by Pulse 92 93 84 Oximetry 10/21/19 10/22/19 10/22/19 23:45 00:00 01:00 Temperature 98.2 F Pulse Rate 97 H 96 H 97 H Pulse Rate [ Bilateral] Pulse Rate [ 97 H From Monitor] Respiratory 26 H 13 17 Rate Respiratory Rate [Bilateral ] Blood Pressure 118/82 106/55 138/80 O2 Sat by Pulse 87 89 95 Oximetry 10/22/19 10/22/19 10/22/19 01:51 02:00 03:01 Temperature Pulse Rate 94 H 95 H 101 H Pulse Rate [ Bilateral] Pulse Rate [ From Monitor] Respiratory 31 H 20 33 H Rate Respiratory Rate [Bilateral ] Blood Pressure 138/81 136/78 138/59 O2 Sat by Pulse 90 93 94 Oximetry 10/22/19 10/22/19 04:00 05:09 Temperature Pulse Rate 93 H 96 H Pulse Rate [ Bilateral] Pulse Rate [ From Monitor] Respiratory 30 H 29 H Rate Respiratory Rate [Bilateral ] Blood Pressure 132/78 128/73 O2 Sat by Pulse 92 92 Oximetry CBC and BMP: 10/27/19 05:40 10/31/19 08:02 ABG, PT/INR, D-dimer: ABG POC ABG pH 7.632 (7.35-7.45) H 10/20/19 10:25 ABG pH 7.520 pH Units (7.350-7.450) H 10/22/19 00:35 POC ABG pCO2 39.4 (35-45) 10/20/19 10:25 ABG pCO2 46.1 mm Hg 10/22/19 00:35 POC ABG pO2 74 (80-105) L 10/20/19 10:25 ABG pO2 64.4 mm Hg (80.0-90.0) L 10/22/19 00:35 POC ABG HCO3 41.6 (22-26 mml/L) 10/20/19 10:25 POC ABG Total CO2 43 (23-27mmol/L) 10/20/19 10:25 POC ABG O2 Sat 97 10/20/19 10:25 ABG O2 Saturation 97.0 % (95.0-99.0) 10/22/19 00:35 Abnormal lab findings: Abnormal Labs 10/17/19 10/17/19 10/17/19 20:57 20:57 Unknown WBC 4.0 L MCV 78 L MCH 25 L RDW 24.7 H Lymph % (Auto) [place] % (Auto) Lymph # Seg Neutrophils % Seg Neuts % (Manual) 77.0 H Monocytes % (Manual) 9.0 H Lymphocytes # (Manual) 0.6 L POC ABG pH ABG pH POC ABG pCO2 POC ABG pO2 ABG pO2 ABG HCO3 ABG Base Excess ABG Hemoglobin Sodium Potassium 3.5 L Carbon Dioxide Creatinine 0.6 L Glucose 147 H POC Glucose Calcium 7.9 L AST 57 H Total Creatine Kinase 857 H Albumin 3.0 L Influenza A (Rapid) Positive A 10/18/19 10/18/19 10/18/19 05:21 05:21 09:19 WBC 3.3 L MCV MCH 25 L RDW 24.3 H Lymph % (Auto) 12.5 L [place] % (Auto) 7.9 H Lymph # 0.4 L Seg Neutrophils % 78.6 H Seg Neuts % (Manual) Monocytes % (Manual) Lymphocytes # (Manual) POC ABG pH ABG pH POC ABG pCO2 POC ABG pO2 ABG pO2 131.3 H ABG HCO3 30.2 H ABG Base Excess 4.5 H ABG Hemoglobin 10.7 L Sodium Potassium Carbon Dioxide Creatinine Glucose 167 H POC Glucose Calcium 8.3 L AST Total Creatine Kinase Albumin Influenza A (Rapid) 10/18/19 10/18/19 10/19/19 11:28 18:27 06:39 WBC MCV MCH RDW Lymph % (Auto) [place] % (Auto) Lymph # Seg Neutrophils % Seg Neuts % (Manual) Monocytes % (Manual) Lymphocytes # (Manual) POC ABG pH 7.461 H 7.487 H ABG pH POC ABG pCO2 53.4 H 52.8 H 51.7 H POC ABG pO2 70 L 71 L ABG pO2 ABG HCO3 ABG Base Excess ABG Hemoglobin Sodium Potassium Carbon Dioxide Creatinine Glucose POC Glucose Calcium AST Total Creatine Kinase Albumin Influenza A (Rapid) 10/19/19 10/20/19 10/20/19 23:25 05:31 09:08 WBC MCV MCH RDW Lymph % (Auto) [place] % (Auto) Lymph # Seg Neutrophils % Seg Neuts % (Manual) Monocytes % (Manual) Lymphocytes # (Manual) POC ABG pH ABG pH POC ABG pCO2 POC ABG pO2 ABG pO2 ABG HCO3 ABG Base Excess ABG Hemoglobin Sodium Potassium Carbon Dioxide Creatinine Glucose POC Glucose 203 H 144 H 163 H Calcium AST Total Creatine Kinase Albumin Influenza A (Rapid) 10/20/19 10/20/19 10/20/19 10:25 13:22 14:51 WBC MCV MCH RDW Lymph % (Auto) [place] % (Auto) Lymph # Seg Neutrophils % Seg Neuts % (Manual) Monocytes % (Manual) Lymphocytes # (Manual) POC ABG pH 7.632 H ABG pH POC ABG pCO2 POC ABG pO2 74 L ABG pO2 ABG HCO3 ABG Base Excess ABG Hemoglobin Sodium 147 H Potassium Carbon Dioxide 31 H Creatinine 0.5 L Glucose 154 H POC Glucose 178 H Calcium 8.2 L AST Total Creatine Kinase Albumin Influenza A (Rapid) 10/20/19 10/20/19 10/21/19 14:51 17:16 05:55 WBC 11.2 H MCV 78 L MCH 25 L RDW 23.9 H Lymph % (Auto) [place] % (Auto) Lymph # Seg Neutrophils % Seg Neuts % (Manual) Monocytes % (Manual) Lymphocytes # (Manual) POC ABG pH ABG pH POC ABG pCO2 POC ABG pO2 ABG pO2 ABG HCO3 ABG Base Excess ABG Hemoglobin Sodium Potassium Carbon Dioxide Creatinine Glucose POC Glucose 143 H 115 H Calcium AST Total Creatine Kinase Albumin Influenza A (Rapid) 10/21/19 10/21/19 10/21/19 08:27 11:52 16:23 WBC MCV MCH RDW Lymph % (Auto) Walsh % (Auto) Lymph # Seg Neutrophils % Seg Neuts % (Manual) Monocytes % (Manual) Lymphocytes # (Manual) POC ABG pH ABG pH POC ABG pCO2 POC ABG pO2 ABG pO2 ABG HCO3 ABG Base Excess ABG Hemoglobin Sodium Potassium Carbon Dioxide Creatinine Glucose POC Glucose 131 H 122 H 120 H Calcium AST Total Creatine Kinase Albumin Influenza A (Rapid) 10/21/19 10/22/19 10/22/19 23:38 00:35 05:19 WBC MCV MCH RDW Lymph % (Auto) Walsh % (Auto) Lymph # Seg Neutrophils % Seg Neuts % (Manual) Monocytes % (Manual) Lymphocytes # (Manual) POC ABG pH ABG pH 7.520 H POC ABG pCO2 POC ABG pO2 ABG pO2 64.4 L ABG HCO3 36.8 H ABG Base Excess 12.6 H ABG Hemoglobin 10.4 L Sodium Potassium Carbon Dioxide Creatinine Glucose POC Glucose 115 H 108 H Calcium AST Total Creatine Kinase Albumin Influenza A (Rapid) Chest x-ray: image reviewed Additional Studies: TTE Conclusions: The left ventricular size is mildly dilated, mild to moderate concentric LVH, est EF 40-45%, left atrium is mildly dilated, trace MR, mild TR, mild to moderate Pulmonary hypertension, RVSP is calculated at 42 mmHG
[2019-10-22 06:35] LABS: Hematocrit 32.6 % (30.3-42.9); Hemoglobin 10.4 gm/dl (10.1-14.3); Mean Corpuscular HGB Conc 32 % (30-34); Mean Corpuscular Volume 79 fl (79-97); Platelet Count 248 K/mm3 (140-440); Red Blood Count 4.13 M/mm3 (3.65-5.03)
[2019-10-22 06:39] LABS: Red Cell Distribution Width 22.8 % (13.2-15.2)
[2019-10-22] MEDS: FUROSEMIDE 40 MG/4 ML INJ IV SCH ×2 (06:42→18:13)
[2019-10-22] MEDS: HEPARIN 5,000 UNIT/1 ML VIAL SUB-Q SCH ×3 (06:42→21:00)
[2019-10-22] MEDS: IPRATROPIUM/ALBUTEROL SULFATE 3 ML AMPUL.NEB IH SCH ×3 (08:34→20:01)
[2019-10-22] MEDS: cefTRIAXone/NS 2 GM/100 ML 2 GM/100 ML BAG IV SCH (09:18)
[2019-10-22] MEDS: PANTOPRAZOLE 40 MG TAB PO SCH (09:19)
[2019-10-22] MEDS: AZITHROMYCIN 250 MG TAB PO SCH (09:19)
[2019-10-22] MEDS: amLODIPine 10 MG TAB PO SCH (09:19)
[2019-10-22] MEDS: METOPROLOL TARTRATE 50 MG TAB PO SCH ×2 (09:20→21:45)
--- NOTE | 2019-10-22 10:07 | Progress Note ---
Assessment and Plan Acute bilateral pulmonary edema Acute respiratory failure Influenza A infection Severe morbid obesity An echocardiogram this admission reports mild decreased left ventricular systolic function, ejection fraction 40-45%. Subjective Date of service: 10/22/19 Interval history: No distress noted. Currently on non rebreather mask. No cardiac events reported. Objective Vital Signs Temp Pulse Pulse Pulse Resp Resp BP 10/22/19 09:20 107 H 137/79 10/22/19 09:19 107 H 137/79 10/22/19 08:35 98 H 20 10/22/19 07:00 98 H 30 H 158/94 10/22/19 06:01 103 H 27 H 119/63 10/22/19 05:09 96 H 29 H 128/73 10/22/19 05:00 95 H 34 H 128/73 10/22/19 04:00 100.3 F H 93 H 30 H 132/78 10/22/19 03:01 101 H 33 H 138/59 10/22/19 02:00 95 H 20 136/78 10/22/19 01:51 94 H 31 H 138/81 10/22/19 01:00 97 H 17 138/80 10/22/19 00:00 98.2 F 96 H 97 H 13 106/55 10/21/19 23:45 97 H 26 H 118/82 10/21/19 23:37 107 H 19 118/82 10/21/19 23:30 96 H 11 L 118/82 10/21/19 23:15 78 18 121/76 10/21/19 23:00 85 30 H 121/76 10/21/19 22:45 92 H 22 131/82 10/21/19 22:30 98 H 29 H 137/80 10/21/19 22:15 110 H 22 118/63 10/21/19 22:03 108 H 131/82 10/21/19 22:00 108 H 24 131/82 10/21/19 21:45 105 H 26 H 118/63 10/21/19 21:30 105 H 20 118/63 10/21/19 21:15 115 H 19 130/79 10/21/19 21:00 105 H 33 H 130/79 10/21/19 20:57 104 H 36 H 117/69 10/21/19 20:55 104 H 35 H 10/21/19 20:45 108 H 35 H 117/69 10/21/19 20:30 100 H 30 H 117/69 10/21/19 20:15 110 H 27 H 112/62 10/21/19 20:00 98.4 F 105 H 107 H 20 112/62 10/21/19 19:53 10/21/19 19:45 104 H 15 128/83 10/21/19 19:30 99 H 23 128/83 10/21/19 19:15 100 H 15 121/77 10/21/19 19:00 96 H 22 121/77 10/21/19 18:45 100 H 16 118/81 10/21/19 18:30 97 H 14 118/81 10/21/19 18:15 100 H 22 114/60 10/21/19 18:00 94 H 20 114/60 10/21/19 17:45 105 H 25 H 121/76 10/21/19 17:30 100 H 12 121/76 10/21/19 17:15 99 H 21 144/79 10/21/19 17:00 91 H 32 H 144/79 10/21/19 16:45 95 H 22 127/79 10/21/19 16:37 95 H 30 H 127/79 10/21/19 16:30 96 H 16 127/79 10/21/19 16:15 96 H 17 119/67 10/21/19 16:00 98.5 F 98 H 27 H 119/67 10/21/19 15:45 90 18 127/72 10/21/19 15:30 93 H 29 H 127/72 10/21/19 15:15 95 H 18 129/79 10/21/19 15:00 99 H 16 129/79 10/21/19 14:45 101 H 19 127/77 10/21/19 14:30 99 H 12 127/77 10/21/19 14:15 100 H 29 H 124/79 10/21/19 14:00 97 H 100 H 12 28 H 124/79 10/21/19 13:45 89 30 H 119/72 10/21/19 13:30 84 26 H 119/72 10/21/19 13:15 92 H 21 103/61 10/21/19 13:00 92 H 31 H 103/61 10/21/19 12:45 77 27 H 123/77 10/21/19 12:37 83 30 H 123/77 10/21/19 12:30 82 29 H 123/77 10/21/19 12:15 85 30 H 129/82 10/21/19 12:00 98.4 F 98 H 31 H 129/82 10/21/19 11:45 104 H 22 136/85 10/21/19 11:35 113 H 136/85 10/21/19 11:30 88 24 136/85 10/21/19 11:15 89 23 127/79 10/21/19 11:00 101 H 30 H 127/79 10/21/19 10:45 95 H 20 129/83 10/21/19 10:30 98 H 26 H 129/83 10/21/19 10:15 96 H 30 H 134/80 Pulse Ox 10/22/19 09:20 10/22/19 09:19 10/22/19 08:35 10/22/19 07:00 94 10/22/19 06:01 93 10/22/19 05:09 92 10/22/19 05:00 91 10/22/19 04:00 92 10/22/19 03:01 94 10/22/19 02:00 93 10/22/19 01:51 90 10/22/19 01:00 95 10/22/19 00:00 89 10/21/19 23:45 87 10/21/19 23:37 84 10/21/19 23:30 93 10/21/19 23:15 92 10/21/19 23:00 90 10/21/19 22:45 87 10/21/19 22:30 92 10/21/19 22:15 91 10/21/19 22:03 10/21/19 22:00 90 10/21/19 21:45 93 10/21/19 21:30 88 10/21/19 21:15 90 10/21/19 21:00 96 10/21/19 20:57 94 10/21/19 20:55 10/21/19 20:45 97 10/21/19 20:30 96 10/21/19 20:15 85 10/21/19 20:00 87 10/21/19 19:53 90 10/21/19 19:45 95 10/21/19 19:30 93 10/21/19 19:15 95 10/21/19 19:00 92 10/21/19 18:45 83 L 10/21/19 18:30 93 10/21/19 18:15 95 10/21/19 18:00 95 10/21/19 17:45 83 L 10/21/19 17:30 83 L 10/21/19 17:15 93 10/21/19 17:00 93 10/21/19 16:45 95 10/21/19 16:37 94 10/21/19 16:30 92 10/21/19 16:15 94 10/21/19 16:00 87 10/21/19 15:45 93 10/21/19 15:30 90 10/21/19 15:15 88 10/21/19 15:00 92 10/21/19 14:45 90 10/21/19 14:30 10/21/19 14:15 89 10/21/19 14:00 92 10/21/19 13:45 92 10/21/19 13:30 91 10/21/19 13:15 94 10/21/19 13:00 90 10/21/19 12:45 95 10/21/19 12:37 92 10/21/19 12:30 94 10/21/19 12:15 95 10/21/19 12:00 94 10/21/19 11:45 91 10/21/19 11:35 10/21/19 11:30 91 10/21/19 11:15 95 10/21/19 11:00 93 10/21/19 10:45 98 10/21/19 10:30 94 10/21/19 10:15 93 - Physical Examination General: Other (morbidly obese, on NRB mask) HEENT: Positive: PERRL Neck: Positive: trachea midline Cardiac: Positive: Reg Rate and Rhythm Neuro: Positive: Grossly Intact - Labs and Meds CBC 10/22/19 Range/Units 06:10 WBC 10.0 (4.5-11.0) K/mm3 RBC 4.13 (3.65-5.03) M/mm3 Hgb 10.4 (10.1-14.3) gm/dl Hct 32.6 (30.3-42.9) % Plt Count 248 (140-440) K/mm3
--- NOTE | 2019-10-22 11:31 | Progress Note ---
Assessment and Plan Cultures: 10/17/2019 blood culture: No growth 10/17/2019 influenza A: Positive A/P: 49-year-old female with morbid obesity, hypertension, lymphedema, functional quadriplegia and sleep apnea admitted with: #Influenza A with acute respiratory failure: on BiPAP, Tamiflu and empiric abx. #Extreme morbid obesity: BMI is 93. OPTIMO trial for oseltamivir showed no difference in high dose v/s standard dose but the median BMI in the obese arm was only 33.8 and the highest BMI in that arm was 43. Hence, I think it would be appropriate to give his patient high dose Tamiflu. Recs: continue with high dose Tamiflu 150 mg BID x 5 days abx d/cindy today Henny Nayak MD, FACP [facility] ([facility] C: [phone] O: [phone] F: [phone] Subjective Date of service: 10/22/19 Interval history: One low grade temp. Was on BiPAP overnight. Currently on NRB mask. She states she feels a lot better. Objective - Exam Narrative Exam: Physical Exam: Constitutional: Alert, cooperative. Resp distress, on NRB. Morbid obesity Head, Ears, Nose: Normocephalic, atraumatic. External ears, nose normal Eyes: Conjunctivae/corneas clear. No icterus. No ptosis. Neck: Supple, no meningeal signs Cardiovascular: S1, S2 normal. Respiratory: AE fair b/l with some rhonchi GI: Soft, non-tender; bowel sounds normal. No peritoneal signs Musculoskeletal: No pedal edema, no cyanosis. Skin: No rash or abscess Hem/Lymphatic: No palpable cervical or supraclavicular nodes. No lymphangitis Psych: Mood ok. Affect normal Neurological: Awake, alert, oriented. No gross abnormality - Constitutional Vitals: Vital Signs Temp Pulse Resp BP Pulse Ox 98.4 F 107 H 20 137/79 94 10/22/19 08:00 10/22/19 09:20 10/22/19 08:35 10/22/19 09:20 10/22/19 07:00 Temperature -Last 24 Hours Temperature 98.4 F Temperature 100.3 F Temperature 98.2 F Temperature 98.4 F Temperature 98.5 F Temperature 98.4 F - Labs CBC & Chem 7: 10/22/19 06:10 10/20/19 14:51 Labs: Abnormal lab results 10/20/19 10/20/19 10/21/19 Range/Units 21:30 22:52 11:52 MCH (28-32) pg RDW (13.2-15.2) % ABG pH (7.350-7.450) pH Units ABG pO2 (80.0-90.0) mm Hg ABG HCO3 (20.0-26.0) mmol/L ABG Base Excess (-2.0-3.0) mmol/L ABG Hemoglobin (12.0-16.0) gm/dl POC Glucose 152 H 179 H 122 H (70-105) 10/21/19 10/21/19 10/22/19 Range/Units 16:23 23:38 00:35 MCH (28-32) pg RDW (13.2-15.2) % ABG pH 7.520 H (7.350-7.450) pH Units ABG pO2 64.4 L (80.0-90.0) mm Hg ABG HCO3 36.8 H (20.0-26.0) mmol/L ABG Base Excess 12.6 H (-2.0-3.0) mmol/L ABG Hemoglobin 10.4 L (12.0-16.0) gm/dl POC Glucose 120 H 115 H (70-105) 10/22/19 10/22/19 Range/Units 05:19 06:10 MCH 25 L (28-32) pg RDW 22.8 H (13.2-15.2) % ABG pH (7.350-7.450) pH Units ABG pO2 (80.0-90.0) mm Hg ABG HCO3 (20.0-26.0) mmol/L ABG Base Excess (-2.0-3.0) mmol/L ABG Hemoglobin (12.0-16.0) gm/dl POC Glucose 108 H (70-105)
--- NOTE | 2019-10-22 11:34 | Progress Note ---
Assessment and Plan Assessment and plan: Patient is a 49 yo woman with a history of severe obesity BMI 93.6 (579 lbs), hypertension, lymphedema, functional quadriplegia and DEAN non compliant with CPAP who presents to [facility] ED with SOB and found to be hypoxic with pulse ox in the 50s. She was treated with BIPAP. * pCXR shows Probable congestive heart failure * TTE Conclusions: The left ventricular size is mildly dilated, mild to moderate concentric LVH, est EF 40-45%, left atrium is mildly dilated, trace MR, mild TR, mild to moderate Pulmonary hypertension, RVSP is calculated at 42 mmHG Acute hypoxic respiratory failure: treat with O2 via NIPPV, close to being intubated Sepsis Influenza A pneumonia positive: start treatment with Tamiflu, consulted ID, isolation Acute diastolic heart failure suspected: diuresis with iv lasix, consult Cardiology, ECHO done but not read Bronchospasm: added duonebs around the clock and ordered a dose of iv solumedrol, consulted Pulm/CCM Extreme Obesity, BMI 93.6: supportive care, 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 Still with low grade temp History Interval history: Patient was seen and examined. Follow-up on current diagnosis of respiratory failure, influenza pna. Overnight uneventful as no events directly reported to me. Patient denies any chest pain, nausea/vomiting or severe headaches. Imaging, nursing note, chart, labs and old chart reviewed. Discussed with patient and mother at bedside. Still on bipap. still with conversational dyspnea. still ill appearing, i was given report this morning that she had severe bronchospasm when bipap taken off. I ordered duonebs around the clock and one dose of iv steroids. Hospitalist Physical - Physical exam Narrative exam: Gen: ill appearing, bmi 93.6 Awake, Alert, Orientated HEENT: NCAT, EOMI, PERRL, OP Clear Neck: supple, no adenopathy, no thyromegaly, equiv JVD CVS/Heart: RRR, normal S1S2, pulses present bilaterally Chest/Lungs: diminished bs bilateral with wheezing, Symmetrical chest expansion, good air entry bilaterally GI/Abdomen: soft, NTND, good bowel sounds, no guarding or rebound /Bladder: no suprapubic tenderness, no CVA or paraspinal tenderness Extermity/Skin: ble edema improved MSK: FROM x 4 Neuro: CN 2-12 grossly intact, no new focal deficits Psych: calm - Constitutional Vitals: Temp Pulse Resp BP Pulse Ox 98.4 F 107 H 20 137/79 94 10/22/19 08:00 10/22/19 09:20 10/22/19 08:35 10/22/19 09:20 10/22/19 07:00 General appearance: Present: obese. Absent: mild distress Results - Labs CBC & Chem 7: 10/22/19 06:10 10/20/19 14:51 Labs: Laboratory Last Values WBC 10.0 K/mm3 (4.5-11.0) 10/22/19 06:10 RBC 4.13 M/mm3 (3.65-5.03) 10/22/19 06:10 Hgb 10.4 gm/dl (10.1-14.3) 10/22/19 06:10 Hct 32.6 % (30.3-42.9) 10/22/19 06:10 MCV 79 fl (79-97) 10/22/19 06:10 MCH 25 pg (28-32) L 10/22/19 06:10 MCHC 32 % (30-34) 10/22/19 06:10 RDW 22.8 % (13.2-15.2) H 10/22/19 06:10 Plt Count 248 K/mm3 (140-440) 10/22/19 06:10 Lymph % (Auto) 12.5 % (13.4-35.0) L 10/18/19 05:21 Dubois % (Auto) 7.9 % (0.0-7.3) H 10/18/19 05:21 Eos % (Auto) 0.0 % (0.0-4.3) 10/18/19 05:21 Baso % (Auto) 1.0 % (0.0-1.8) 10/18/19 05:21 Lymph # 0.4 K/mm3 (1.2-5.4) L 10/18/19 05:21 Dubois # 0.3 K/mm3 (0.0-0.8) 10/18/19 05:21 Eos # 0.0 K/mm3 (0.0-0.4) 10/18/19 05:21 Baso # 0.0 K/mm3 (0.0-0.1) 10/18/19 05:21 Add Manual Diff Complete 10/17/19 20:57 Total Counted 100 10/17/19 20:57 Seg Neutrophils % 78.6 % (40.0-70.0) H 10/18/19 05:21 Seg Neuts % (Manual) 77.0 % (40.0-70.0) H 10/17/19 20:57 Band Neutrophils % 0 % 10/17/19 20:57 Lymphocytes % (Manual) 14.0 % (13.4-35.0) 10/17/19 20:57 Reactive Lymphs % (Man) 0 % 10/17/19 20:57 Monocytes % (Manual) 9.0 % (0.0-7.3) H 10/17/19 20:57 Eosinophils % (Manual) 0 % (0.0-4.3) 10/17/19 20:57 Basophils % (Manual) 0 % (0.0-1.8) 10/17/19 20:57 Metamyelocytes % 0 % 10/17/19 20:57 Myelocytes % 0 % 10/17/19 20:57 Promyelocytes % 0 % 10/17/19 20:57 Blast Cells % 0 % 10/17/19 20:57 Nucleated RBC % Not Reportable 10/17/19 20:57 Seg Neutrophils # 2.6 K/mm3 (1.8-7.7) 10/18/19 05:21 Seg Neutrophils # Man 3.1 K/mm3 (1.8-7.7) 10/17/19 20:57 Band Neutrophils # 0.0 K/mm3 10/17/19 20:57 Lymphocytes # (Manual) 0.6 K/mm3 (1.2-5.4) L 10/17/19 20:57 Abs React Lymphs (Man) 0.0 K/mm3 10/17/19 20:57 Monocytes # (Manual) 0.4 K/mm3 (0.0-0.8) 10/17/19 20:57 Eosinophils # (Manual) 0.0 K/mm3 (0.0-0.4) 10/17/19 20:57 Basophils # (Manual) 0.0 K/mm3 (0.0-0.1) 10/17/19 20:57 Metamyelocytes # 0.0 K/mm3 10/17/19 20:57 Myelocytes # 0.0 K/mm3 10/17/19 20:57 Promyelocytes # 0.0 K/mm3 10/17/19 20:57 Blast Cells # 0.0 K/mm3 10/17/19 20:57 WBC Morphology Not Reportable 10/17/19 20:57 Hypersegmented Neuts Not Reportable 10/17/19 20:57 Hyposegmented Neuts Not Reportable 10/17/19 20:57 Hypogranular Neuts Not Reportable 10/17/19 20:57 Smudge Cells Not Reportable 10/17/19 20:57 Toxic Granulation Not Reportable 10/17/19 20:57 Toxic Vacuolation Not Reportable 10/17/19 20:57 Dohle Bodies Not Reportable 10/17/19 20:57 Pelger-Huet Anomaly Not Reportable 10/17/19 20:57 Krista Rods Not Reportable 10/17/19 20:57 Platelet Estimate Not Reportable 10/17/19 20:57 Clumped Platelets Not Reportable 10/17/19 20:57 Plt Clumps, EDTA Not Reportable 10/17/19 20:57 Large Platelets Not Reportable 10/17/19 20:57 Giant Platelets Not Reportable 10/17/19 20:57 Platelet Satelliting Not Reportable 10/17/19 20:57 Plt Morphology Comment Not Reportable 10/17/19 20:57 RBC Morphology Not Reportable 10/17/19 20:57 Dimorphic RBCs Not Reportable 10/17/19 20:57 Polychromasia Not Reportable 10/17/19 20:57 Hypochromasia 1+ 10/17/19 20:57 Poikilocytosis Not Reportable 10/17/19 20:57 Anisocytosis 2+ 10/17/19 20:57 Microcytosis Not Reportable 10/17/19 20:57 Macrocytosis Not Reportable 10/17/19 20:57 Spherocytes Not Reportable 10/17/19 20:57 Pappenheimer Bodies Not Reportable 10/17/19 20:57 Sickle Cells Not Reportable 10/17/19 20:57 Target Cells Not Reportable 10/17/19 20:57 Tear Drop Cells Not Reportable 10/17/19 20:57 Ovalocytes Not Reportable 10/17/19 20:57 Helmet Cells Not Reportable 10/17/19 20:57 Gallagher[place] Bodies Not Reportable 10/17/19 20:57 [place] Rings Not Reportable 10/17/19 20:57 James Cells Not Reportable 10/17/19 20:57 Bite Cells Not Reportable 10/17/19 20:57 Crenated Cell Not Reportable 10/17/19 20:57 Elliptocytes Not Reportable 10/17/19 20:57 Acanthocytes (Spur) Not Reportable 10/17/19 20:57 Rouleaux Not Reportable 10/17/19 20:57 Hemoglobin C Crystals Not Reportable 10/17/19 20:57 Schistocytes Not Reportable 10/17/19 20:57 Malaria parasites Not Reportable 10/17/19 20:57 Alejandro Bodies Not Reportable 10/17/19 20:57 Hem Pathologist Commnt No 10/17/19 20:57 POC ABG pH 7.632 (7.35-7.45) H 10/20/19 10:25 ABG pH 7.520 pH Units (7.350-7.450) H 10/22/19 00:35 POC ABG pCO2 39.4 (35-45) 10/20/19 10:25 ABG pCO2 46.1 mm Hg 10/22/19 00:35 POC ABG pO2 74 (80-105) L 10/20/19 10:25 ABG pO2 64.4 mm Hg (80.0-90.0) L 10/22/19 00:35 POC ABG HCO3 41.6 (22-26 mml/L) 10/20/19 10:25 ABG HCO3 36.8 mmol/L (20.0-26.0) H 10/22/19 00:35 POC ABG Total CO2 43 (23-27mmol/L) 10/20/19 10:25 POC ABG O2 Sat 97 10/20/19 10:25 ABG O2 Saturation 97.0 % (95.0-99.0) 10/22/19 00:35 ABG O2 Content 13.9 (0.0-44) 10/22/19 00:35 POC ABG Base Excess 21 ((-2) - (+3)mmol/L) 10/20/19 10:25 ABG Base Excess 12.6 mmol/L (-2.0-3.0) H 10/22/19 00:35 ABG Hemoglobin 10.4 gm/dl (12.0-16.0) L 10/22/19 00:35 ABG Carboxyhemoglobin 1.6 % (0.0-5.0) 10/22/19 00:35 ABG Methemoglobin 0.5 % (0.0-1.5) 10/22/19 00:35 Oxyhemoglobin 95.0 % (95.0-99.0) 10/22/19 00:35 FiO2 90 % 10/22/19 00:35 Sodium 147 mmol/L (137-145) H 10/20/19 14:51 Potassium 3.7 mmol/L (3.6-5.0) 10/20/19 14:51 Chloride 100.1 mmol/L (98-107) 10/20/19 14:51 Carbon Dioxide 31 mmol/L (22-30) H 10/20/19 14:51 Anion Gap 20 mmol/L 10/20/19 14:51 BUN 15 mg/dL (7-17) 10/20/19 14:51 Creatinine 0.5 mg/dL (0.7-1.2) L 10/20/19 14:51 Estimated GFR > 60 ml/min 10/20/19 14:51 BUN/Creatinine Ratio 30 % 10/20/19 14:51 Glucose 154 mg/dL (65-100) H 10/20/19 14:51 POC Glucose 108 (70-105) H 10/22/19 05:19 Calcium 8.2 mg/dL (8.4-10.2) L 10/20/19 14:51 Total Bilirubin 0.20 mg/dL (0.1-1.2) 10/17/19 20:57 AST 57 units/L (5-40) H 10/17/19 20:57 ALT 22 units/L (7-56) 10/17/19 20:57 Alkaline Phosphatase 67 units/L (35-129) 10/17/19 20:57 Total Creatine Kinase 857 units/L (30-135) H 10/17/19 20:57 CK-MB (CK-2) 2.6 ng/mL (0.0-4.0) 10/17/19 20:57 CK-MB (CK-2) Rel Index 0.3 (0-4) 10/17/19 20:57 Troponin T < 0.010 ng/mL (0.00-0.029) 10/17/19 20:57 NT-Pro-B Natriuret Pep 317.6 pg/mL (0-450) 10/17/19 20:57 Total Protein 7.1 g/dL (6.3-8.2) 10/17/19 20:57 Albumin 3.0 g/dL (3.9-5) L 10/17/19 20:57 Albumin/Globulin Ratio 0.7 % 10/17/19 20:57 Procalcitonin 0.06 ng/mL (<0.15) 10/20/19 14:51 Influenza A (Rapid) Positive (Negative) A 10/17/19 Unknown Influenza B (Rapid) Negative (Negative) 10/17/19 Unknown Active Medications - Current Medications Current Medications: Generic Name Dose Route Start Last Admin Trade Name Freq PRN Reason Stop Dose Admin Albuterol 2.5 mg 10/17/19 22:47 10/19/19 14:34 Proventil IH 2.5 mg Q3HRT PRN Administration Shortness Of Breath Albuterol/Ipratropium 1 ampul 10/19/19 20:00 10/22/19 08:34 Duoneb *Not For Prn Use* IH 1 ampul TIDRT EDI Administration Amlodipine Besylate 10 mg 10/18/19 10:00 10/22/19 09:19 Amlodipine PO 10 mg DAILY EDI Administration Azithromycin 500 mg 10/19/19 17:00 10/22/19 09:19 Zithromax PO 500 mg QDAY EDI Administration Furosemide 40 mg 10/18/19 06:00 10/22/19 06:42 Lasix IV 40 mg BID@0600,1800 EDI Administration Heparin Sodium (Porcine) 5,000 unit 10/18/19 06:00 10/22/19 06:42 Heparin SUB-Q 5,000 unit Q8HR EDI Administration Ceftriaxone Sodium 2 gm in 100 mls @ 200 mls/hr 10/19/19 16:00 10/22/19 09:18 Rocephin/Ns 2 Gm/100 Ml IV 200 mls/hr Q24HR EDI Administration Protocol Lorazepam 1 mg 10/17/19 20:39 10/19/19 17:00 Ativan IV 1 mg ONCE PRN Administration Anxiety Magnesium Hydroxide 30 ml 10/17/19 22:47 Milk Of Magnesia PO Q4H PRN Constipation Metoprolol Tartrate 50 mg 10/18/19 10:00 10/22/19 09:20 Metoprolol PO 50 mg BID EDI Administration Morphine Sulfate 2 mg 10/17/19 22:47 Morphine IV Q4H PRN Pain, Moderate (4-6) Ondansetron HCl 4 mg 10/17/19 22:47 Zofran IV Q8H PRN Nausea And Vomiting Oseltamivir Phosphate 150 mg 10/19/19 15:40 10/21/19 23:51 Tamiflu PO 10/22/19 23:31 150 mg 1130,2330 EDI Administration Pantoprazole Sodium 40 mg 10/21/19 10:00 10/22/19 09:19 Protonix PO 40 mg DAILY EDI Administration Sodium Chloride 10 ml 10/18/19 10:00 10/22/19 09:20 Sodium Chloride Flush Syringe 10 Ml IV 10 ml BID EDI Administration Sodium Chloride 10 ml 10/17/19 22:47 Sodium Chloride Flush Syringe 10 Ml IV PRN PRN LINE FLUSH Nutrition/Malnutrition Assess - Dietary Evaluation Nutrition/Malnutrition Findings: Nutrition Notes Start: 10/19/19 13:20 Freq: Status: Active Protocol: Document 10/20/19 16:48 LM (Rec: 10/20/19 16:50 LM [id number]) Nutrition Notes Need for Assessment generated from: MD Order,Education Initial or Follow up Brief Note Subjective/Other Information Md consult for diet education regarding obesity. Pt with contact isolation and bipap. Nutrition Intervention Follow-Up By: 10/22/19 Additional Comments F/U for diet education, assessment needs
[2019-10-22] MEDS: OSELTAMIVIR 75 MG CAP PO SCH ×2 (12:02→23:19)
[2019-10-22] MEDS: LORazepam 2 MG/ML VIAL IV PRN (15:13)
[2019-10-22 16:17] LABS: BUN/Creatinine Ratio 27; Blood Urea Nitrogen 19 mg/dL (7-17); Calcium 8.9 mg/dL (8.4-10.2); Hemolysis Index 48
[2019-10-23] MEDS ORDERED: diphenhydrAMINE 25 MG CAP PO ONE (02:20)
[2019-10-23] MEDS: FUROSEMIDE 40 MG/4 ML INJ IV SCH ×2 (05:25→19:52)
[2019-10-23] MEDS: HEPARIN 5,000 UNIT/1 ML VIAL SUB-Q SCH ×2 (05:26→15:48)
[2019-10-23] MEDS ORDERED: BUMETANIDE 1 MG/4 ML INJ IV ONE (05:47)
--- NOTE | 2019-10-23 05:57 | Progress Note ---
Assessment and Plan Acute hypoxic-hypercapnic respiratory failure Bilateral alveolar infiltrates- possible heart failure-systolic Sepsis Influenza A pneumonia positive Acute diastolic heart failure suspected Extreme Obesity, BMI 93.6 Probable DEAN with OHS Functional quadriplegia h/o HTN Pulmoanry HTN Conitue all care as below Give a dose of bumetanide If she conitue sto desaturate on NIPPV, will need oral intubation and MVS -NIPPV -Aspiration precautions, HOB>40 degrees -Wean FIO2 for O2 sats 88-90% -Oxygen restrictive strategies -Limit narcotic analgesia and benzodiazepines, to avoid respiratory depression - Anti-virals for Influenza infection-ID following -Bronchodilators per protocol -Place on airborne isolation -VTE prophylaxis -Stress ulcer prophylaxis - Accuchecks with glycemic control for SSI (While critically ill target blood glucose of 140-180 mg/dL; avoid hypoglycemia) - mobility protocol for pressure ulcer prevention - Monitor hemodynamics closely -Monitor electrolyte profile closely and replete as indicated -Chronic home medications, resume as clinically indicated -Gentle diuresis while monitoring renal function -Blanchard catheter in this critically ill patient, with poor urine output, requiring accurate intake and output monitoring. -PT/OT -Weight loss and life style modifications on discharge. May need surgical bariatric intervention( discussed this with her and her sister- patient currently does not have health insurance) -Out patient evaluation for sleep apnea Discussed with RT and RN Also updated her sister who was at the bedside CONDITION: CRITICAL PROGNOSIS: GUARDED CODE STATUS: FULL CODE The high probability of a clinically significant, sudden or life-threatening deterioration of the [respiratory, cardiovascular,] system(s) required my full and direct attention, intervention and personal management. The aggregate critical care time was [35] minutes without overlap. Time includes spent on; [x] Data Review and interpretation [x] Patient assessment and monitoring of vital signs [x] Documentation [x] Medication orders and management Subjective Date of service: 10/23/19 Interval history: Patient is seen today for: acute hypoxic respiratory failure; influenza infection; extreme obesity with probable DEAN Seen and examined at bedside; 24hour events reviewed; nursing and respiratory care staff consulted; no adverse overnight events reported to me; acute desaturations this morning, Patient is on BIPAP, resting peacefully in bed, oxygen saturations are marginal, not tolerating coming off vapotherm at all Vitals, labs, medications, chart and imaging reviewed. Sister at the bedside. Objective - Exam Narrative Exam: Physical Exam: Vitals reviewed Constitutional:on BIPAP via full face mask, Morbidly obese Head, Ears, Nose: Normocephalic, atraumatic. External ears, nose normal Eyes: Conjunctivae/corneas clear. No icterus. No ptosis. Neck: intubated Oral: intubated Cardiovascular: S1, S2 normal. Respiratory: Good air entry, clear to auscultation bilaterally GI: Soft, non-tender; bowel sounds normal. No peritoneal signs Musculoskeletal: No pedal edema, no cyanosis. Skin: No rash or abscess. No wounds Hem/Lymphatic: No palpable cervical or supraclavicular nodes. No lymphangitis Psych: no agitation Neurological: awake, alert, oriented x3 Vital Signs - 12hr 10/22/19 10/22/19 10/22/19 18:00 19:00 19:27 Temperature 98.6 F Pulse Rate 120 H 124 H Pulse Rate [ Bilateral] Respiratory 27 H 31 H Rate Respiratory Rate [Bilateral ] Respiratory Rate [denies] Blood Pressure 138/81 133/84 O2 Sat by Pulse 89 85 Oximetry 10/22/19 10/22/19 10/22/19 20:00 20:06 20:08 Temperature Pulse Rate 108 H Pulse Rate [ 121 H Bilateral] Respiratory 37 H Rate Respiratory 18 Rate [Bilateral ] Respiratory Rate [denies] Blood Pressure 119/83 O2 Sat by Pulse 92 88 Oximetry 10/22/19 10/22/19 10/22/19 20:19 21:01 21:45 Temperature Pulse Rate 90 126 H 112 H Pulse Rate [ Bilateral] Respiratory 33 H 24 Rate Respiratory Rate [Bilateral ] Respiratory Rate [denies] Blood Pressure 119/83 119/74 134/65 O2 Sat by Pulse 90 Oximetry 10/22/19 10/22/19 10/22/19 22:00 22:01 22:59 Temperature 99.6 F Pulse Rate 108 H Pulse Rate [ Bilateral] Respiratory 37 H 25 H Rate Respiratory Rate [Bilateral ] Respiratory 30 H Rate [denies] Blood Pressure 155/93 O2 Sat by Pulse 92 91 Oximetry 10/22/19 10/22/19 10/22/19 23:00 23:25 23:26 Temperature Pulse Rate 111 H 116 H Pulse Rate [ Bilateral] Respiratory 27 H 29 H 37 H Rate Respiratory Rate [Bilateral ] Respiratory Rate [denies] Blood Pressure 151/95 151/95 O2 Sat by Pulse 85 83 L 92 Oximetry 10/22/19 10/22/19 10/23/19 23:27 23:59 00:00 Temperature Pulse Rate 101 H 90 114 H Pulse Rate [ Bilateral] Respiratory 31 H 31 H Rate Respiratory Rate [Bilateral ] Respiratory Rate [denies] Blood Pressure 157/91 182/100 O2 Sat by Pulse 90 91 Oximetry 10/23/19 10/23/19 10/23/19 01:00 02:00 03:00 Temperature Pulse Rate 116 H 108 H 98 H Pulse Rate [ Bilateral] Respiratory 30 H 33 H 31 H Rate Respiratory Rate [Bilateral ] Respiratory Rate [denies] Blood Pressure 168/97 157/95 148/88 O2 Sat by Pulse 88 90 88 Oximetry 10/23/19 10/23/19 10/23/19 03:30 03:34 04:00 Temperature 98.9 F Pulse Rate 101 H 110 H Pulse Rate [ Bilateral] Respiratory 37 H 33 H Rate Respiratory Rate [Bilateral ] Respiratory Rate [denies] Blood Pressure 156/87 O2 Sat by Pulse 92 88 Oximetry 10/23/19 05:00 Temperature Pulse Rate 67 Pulse Rate [ Bilateral] Respiratory 34 H Rate Respiratory Rate [Bilateral ] Respiratory Rate [denies] Blood Pressure 180/98 O2 Sat by Pulse 87 Oximetry CBC and BMP: 10/27/19 05:40 10/31/19 08:02 ABG, PT/INR, D-dimer: ABG POC ABG pH 7.632 (7.35-7.45) H 10/20/19 10:25 ABG pH 7.520 pH Units (7.350-7.450) H 10/22/19 00:35 POC ABG pCO2 39.4 (35-45) 10/20/19 10:25 ABG pCO2 46.1 mm Hg 10/22/19 00:35 POC ABG pO2 74 (80-105) L 10/20/19 10:25 ABG pO2 64.4 mm Hg (80.0-90.0) L 10/22/19 00:35 POC ABG HCO3 41.6 (22-26 mml/L) 10/20/19 10:25 POC ABG Total CO2 43 (23-27mmol/L) 10/20/19 10:25 POC ABG O2 Sat 97 10/20/19 10:25 ABG O2 Saturation 97.0 % (95.0-99.0) 10/22/19 00:35 Abnormal lab findings: Abnormal Labs 10/17/19 10/17/19 10/17/19 20:57 20:57 Unknown WBC 4.0 L MCV 78 L MCH 25 L RDW 24.7 H Lymph % (Auto) [place] % (Auto) Lymph # Seg Neutrophils % Seg Neuts % (Manual) 77.0 H Monocytes % (Manual) 9.0 H Lymphocytes # (Manual) 0.6 L POC ABG pH ABG pH POC ABG pCO2 POC ABG pO2 ABG pO2 ABG HCO3 ABG Base Excess ABG Hemoglobin Sodium Potassium 3.5 L Chloride Carbon Dioxide BUN Creatinine 0.6 L Glucose 147 H POC Glucose Calcium 7.9 L AST 57 H Total Creatine Kinase 857 H Albumin 3.0 L Influenza A (Rapid) Positive A 10/18/19 10/18/19 10/18/19 05:21 05:21 09:19 WBC 3.3 L MCV MCH 25 L RDW 24.3 H Lymph % (Auto) 12.5 L [place] % (Auto) 7.9 H Lymph # 0.4 L Seg Neutrophils % 78.6 H Seg Neuts % (Manual) Monocytes % (Manual) Lymphocytes # (Manual) POC ABG pH ABG pH POC ABG pCO2 POC ABG pO2 ABG pO2 131.3 H ABG HCO3 30.2 H ABG Base Excess 4.5 H ABG Hemoglobin 10.7 L Sodium Potassium Chloride Carbon Dioxide BUN Creatinine Glucose 167 H POC Glucose Calcium 8.3 L AST Total Creatine Kinase Albumin Influenza A (Rapid) 10/18/19 10/18/19 10/19/19 11:28 18:27 06:39 WBC MCV MCH RDW Lymph % (Auto) [place] % (Auto) Lymph # Seg Neutrophils % Seg Neuts % (Manual) Monocytes % (Manual) Lymphocytes # (Manual) POC ABG pH 7.461 H 7.487 H ABG pH POC ABG pCO2 53.4 H 52.8 H 51.7 H POC ABG pO2 70 L 71 L ABG pO2 ABG HCO3 ABG Base Excess ABG Hemoglobin Sodium Potassium Chloride Carbon Dioxide BUN Creatinine Glucose POC Glucose Calcium AST Total Creatine Kinase Albumin Influenza A (Rapid) 10/19/19 10/20/19 10/20/19 23:25 05:31 09:08 WBC MCV MCH RDW Lymph % (Auto) [place] % (Auto) Lymph # Seg Neutrophils % Seg Neuts % (Manual) Monocytes % (Manual) Lymphocytes # (Manual) POC ABG pH ABG pH POC ABG pCO2 POC ABG pO2 ABG pO2 ABG HCO3 ABG Base Excess ABG Hemoglobin Sodium Potassium Chloride Carbon Dioxide BUN Creatinine Glucose POC Glucose 203 H 144 H 163 H Calcium AST Total Creatine Kinase Albumin Influenza A (Rapid) 10/20/19 10/20/19 10/20/19 10:25 13:22 14:51 WBC MCV MCH RDW Lymph % (Auto) [place] % (Auto) Lymph # Seg Neutrophils % Seg Neuts % (Manual) Monocytes % (Manual) Lymphocytes # (Manual) POC ABG pH 7.632 H ABG pH POC ABG pCO2 POC ABG pO2 74 L ABG pO2 ABG HCO3 ABG Base Excess ABG Hemoglobin Sodium 147 H Potassium Chloride Carbon Dioxide 31 H BUN Creatinine 0.5 L Glucose 154 H POC Glucose 178 H Calcium 8.2 L AST Total Creatine Kinase Albumin Influenza A (Rapid) 10/20/19 10/20/19 10/20/19 14:51 17:16 21:30 WBC 11.2 H MCV 78 L MCH 25 L RDW 23.9 H Lymph % (Auto) [place] % (Auto) Lymph # Seg Neutrophils % Seg Neuts % (Manual) Monocytes % (Manual) Lymphocytes # (Manual) POC ABG pH ABG pH POC ABG pCO2 POC ABG pO2 ABG pO2 ABG HCO3 ABG Base Excess ABG Hemoglobin Sodium Potassium Chloride Carbon Dioxide BUN Creatinine Glucose POC Glucose 143 H 152 H Calcium AST Total Creatine Kinase Albumin Influenza A (Rapid) 10/20/19 10/21/19 10/21/19 22:52 05:55 08:27 WBC MCV MCH RDW Lymph % (Auto) [place] % (Auto) Lymph # Seg Neutrophils % Seg Neuts % (Manual) Monocytes % (Manual) Lymphocytes # (Manual) POC ABG pH ABG pH POC ABG pCO2 POC ABG pO2 ABG pO2 ABG HCO3 ABG Base Excess ABG Hemoglobin Sodium Potassium Chloride Carbon Dioxide BUN Creatinine Glucose POC Glucose 179 H 115 H 131 H Calcium AST Total Creatine Kinase Albumin Influenza A (Rapid) 10/21/19 10/21/19 10/21/19 11:52 16:23 23:38 WBC MCV MCH RDW Lymph % (Auto) [place] % (Auto) Lymph # Seg Neutrophils % Seg Neuts % (Manual) Monocytes % (Manual) Lymphocytes # (Manual) POC ABG pH ABG pH POC ABG pCO2 POC ABG pO2 ABG pO2 ABG HCO3 ABG Base Excess ABG Hemoglobin Sodium Potassium Chloride Carbon Dioxide BUN Creatinine Glucose POC Glucose 122 H 120 H 115 H Calcium AST Total Creatine Kinase Albumin Influenza A (Rapid) 10/22/19 10/22/19 10/22/19 00:35 05:19 06:10 WBC MCV MCH 25 L RDW 22.8 H Lymph % (Auto) [place] % (Auto) Lymph # Seg Neutrophils % Seg Neuts % (Manual) Monocytes % (Manual) Lymphocytes # (Manual) POC ABG pH ABG pH 7.520 H POC ABG pCO2 POC ABG pO2 ABG pO2 64.4 L ABG HCO3 36.8 H ABG Base Excess 12.6 H ABG Hemoglobin 10.4 L Sodium Potassium Chloride Carbon Dioxide BUN Creatinine Glucose POC Glucose 108 H Calcium AST Total Creatine Kinase Albumin Influenza A (Rapid) 10/22/19 15:40 WBC MCV MCH RDW Lymph % (Auto) [place] % (Auto) Lymph # Seg Neutrophils % Seg Neuts % (Manual) Monocytes % (Manual) Lymphocytes # (Manual) POC ABG pH ABG pH POC ABG pCO2 POC ABG pO2 ABG pO2 ABG HCO3 ABG Base Excess ABG Hemoglobin Sodium 136 L D Potassium Chloride 97.6 L Carbon Dioxide BUN 19 H Creatinine Glucose 125 H POC Glucose Calcium AST Total Creatine Kinase Albumin Influenza A (Rapid)
[2019-10-23] MEDS: IPRATROPIUM/ALBUTEROL SULFATE 3 ML AMPUL.NEB IH SCH ×3 (08:37→21:16)
[2019-10-23] MEDS: METOPROLOL TARTRATE 50 MG TAB PO SCH (10:04)
[2019-10-23] MEDS: amLODIPine 10 MG TAB PO SCH (10:04)
[2019-10-23] MEDS: PANTOPRAZOLE 40 MG TAB PO SCH (10:05)
[2019-10-23] MEDS: LORazepam 2 MG/ML VIAL IV PRN (10:56)
--- NOTE | 2019-10-23 11:02 | Progress Note ---
Assessment and Plan Assessment and plan: Patient is a 49 yo woman with a history of severe obesity BMI 93.6 (579 lbs), hypertension, lymphedema, functional quadriplegia and DEAN non compliant with CPAP who presents to [facility] ED with SOB and found to be hypoxic with pulse ox in the 50s. She was treated with BIPAP. * pCXR shows Probable congestive heart failure * TTE Conclusions: The left ventricular size is mildly dilated, mild to moderate concentric LVH, est EF 40-45%, left atrium is mildly dilated, trace MR, mild TR, mild to moderate Pulmonary hypertension, RVSP is calculated at 42 mmHG Acute hypoxic respiratory failure: treat with O2 via NIPPV, close to being intubated Sepsis Influenza A pneumonia positive: Tmax since 10/22/2019 100.5F, Tc 98.9F, treatment with Tamiflu, ID following Acute diastolic heart failure suspected: treated with iv lasix BID, consulted Cardiology, input noted Bronchospasm: added duonebs around the clock and ordered a dose of iv Solumedrol, consulted Pulm/CCM Extreme Obesity, BMI re-calculated to 94.3: supportive care, consulted Texture Artist Suspected Obesity Hypoventilation syndrome DVT ppx sq heparin full code She is on High Flow o2, 100% but pulse ox at 88% History Interval history: Patient was seen and examined. Follow-up on current diagnosis of respiratory failure, influenza pna. Overnight uneventful as no events directly reported to me. Patient denies any chest pain, nausea/vomiting or severe headaches. Imaging, nursing note, chart, labs and old chart reviewed. Discussed with patient Hospitalist Physical - Physical exam Narrative exam: Gen: ill appearing, bmi 93.6 Awake, Alert, Orientated HEENT: NCAT, EOMI, PERRL, OP Clear Neck: supple, no adenopathy, no thyromegaly, equiv JVD CVS/Heart: Regular tachycardiac, normal S1S2, pulses present bilaterally Chest/Lungs: tachypneic, diminished bs bilateral with wheezing, Symmetrical c hest expansion, good air entry bilaterally GI/Abdomen: soft, NTND, good bowel sounds, no guarding or rebound /Bladder: no suprapubic tenderness, no CVA or paraspinal tenderness Extermity/Skin: ble edema improved MSK: FROM x 4 Neuro: CN 2-12 grossly intact, no new focal deficits Psych: calm - Constitutional Vitals: Temp Pulse Resp BP Pulse Ox 98.9 F 123 H 31 H 157/89 90 10/23/19 03:34 10/23/19 10:04 10/23/19 08:37 10/23/19 10:04 10/23/19 08:37 General appearance: Present: obese. Absent: mild distress Results - Labs CBC & Chem 7: 10/22/19 06:10 10/22/19 15:40 Labs: Laboratory Last Values WBC 10.0 K/mm3 (4.5-11.0) 10/22/19 06:10 RBC 4.13 M/mm3 (3.65-5.03) 10/22/19 06:10 Hgb 10.4 gm/dl (10.1-14.3) 10/22/19 06:10 Hct 32.6 % (30.3-42.9) 10/22/19 06:10 MCV 79 fl (79-97) 10/22/19 06:10 MCH 25 pg (28-32) L 10/22/19 06:10 MCHC 32 % (30-34) 10/22/19 06:10 RDW 22.8 % (13.2-15.2) H 10/22/19 06:10 Plt Count 248 K/mm3 (140-440) 10/22/19 06:10 Lymph % (Auto) 12.5 % (13.4-35.0) L 10/18/19 05:21 [place] % (Auto) 7.9 % (0.0-7.3) H 10/18/19 05:21 Eos % (Auto) 0.0 % (0.0-4.3) 10/18/19 05:21 Baso % (Auto) 1.0 % (0.0-1.8) 10/18/19 05:21 Lymph # 0.4 K/mm3 (1.2-5.4) L 10/18/19 05:21 [place] # 0.3 K/mm3 (0.0-0.8) 10/18/19 05:21 Eos # 0.0 K/mm3 (0.0-0.4) 10/18/19 05:21 Baso # 0.0 K/mm3 (0.0-0.1) 10/18/19 05:21 Add Manual Diff Complete 10/17/19 20:57 Total Counted 100 10/17/19 20:57 Seg Neutrophils % 78.6 % (40.0-70.0) H 10/18/19 05:21 Seg Neuts % (Manual) 77.0 % (40.0-70.0) H 10/17/19 20:57 Band Neutrophils % 0 % 10/17/19 20:57 Lymphocytes % (Manual) 14.0 % (13.4-35.0) 10/17/19 20:57 Reactive Lymphs % (Man) 0 % 10/17/19 20:57 Monocytes % (Manual) 9.0 % (0.0-7.3) H 10/17/19 20:57 Eosinophils % (Manual) 0 % (0.0-4.3) 10/17/19 20:57 Basophils % (Manual) 0 % (0.0-1.8) 10/17/19 20:57 Metamyelocytes % 0 % 10/17/19 20:57 Myelocytes % 0 % 10/17/19 20:57 Promyelocytes % 0 % 10/17/19 20:57 Blast Cells % 0 % 10/17/19 20:57 Nucleated RBC % Not Reportable 10/17/19 20:57 Seg Neutrophils # 2.6 K/mm3 (1.8-7.7) 10/18/19 05:21 Seg Neutrophils # Man 3.1 K/mm3 (1.8-7.7) 10/17/19 20:57 Band Neutrophils # 0.0 K/mm3 10/17/19 20:57 Lymphocytes # (Manual) 0.6 K/mm3 (1.2-5.4) L 10/17/19 20:57 Abs React Lymphs (Man) 0.0 K/mm3 10/17/19 20:57 Monocytes # (Manual) 0.4 K/mm3 (0.0-0.8) 10/17/19 20:57 Eosinophils # (Manual) 0.0 K/mm3 (0.0-0.4) 10/17/19 20:57 Basophils # (Manual) 0.0 K/mm3 (0.0-0.1) 10/17/19 20:57 Metamyelocytes # 0.0 K/mm3 10/17/19 20:57 Myelocytes # 0.0 K/mm3 10/17/19 20:57 Promyelocytes # 0.0 K/mm3 10/17/19 20:57 Blast Cells # 0.0 K/mm3 10/17/19 20:57 WBC Morphology Not Reportable 10/17/19 20:57 Hypersegmented Neuts Not Reportable 10/17/19 20:57 Hyposegmented Neuts Not Reportable 10/17/19 20:57 Hypogranular Neuts Not Reportable 10/17/19 20:57 Smudge Cells Not Reportable 10/17/19 20:57 Toxic Granulation Not Reportable 10/17/19 20:57 Toxic Vacuolation Not Reportable 10/17/19 20:57 Dohle Bodies Not Reportable 10/17/19 20:57 Pelger-Huet Anomaly Not Reportable 10/17/19 20:57 Krista Rods Not Reportable 10/17/19 20:57 Platelet Estimate Not Reportable 10/17/19 20:57 Clumped Platelets Not Reportable 10/17/19 20:57 Plt Clumps, EDTA Not Reportable 10/17/19 20:57 Large Platelets Not Reportable 10/17/19 20:57 Giant Platelets Not Reportable 10/17/19 20:57 Platelet Satelliting Not Reportable 10/17/19 20:57 Plt Morphology Comment Not Reportable 10/17/19 20:57 RBC Morphology Not Reportable 10/17/19 20:57 Dimorphic RBCs Not Reportable 10/17/19 20:57 Polychromasia Not Reportable 10/17/19 20:57 Hypochromasia 1+ 10/17/19 20:57 Poikilocytosis Not Reportable 10/17/19 20:57 Anisocytosis 2+ 10/17/19 20:57 Microcytosis Not Reportable 10/17/19 20:57 Macrocytosis Not Reportable 10/17/19 20:57 Spherocytes Not Reportable 10/17/19 20:57 Pappenheimer Bodies Not Reportable 10/17/19 20:57 Sickle Cells Not Reportable 10/17/19 20:57 Target Cells Not Reportable 10/17/19 20:57 Tear Drop Cells Not Reportable 10/17/19 20:57 Ovalocytes Not Reportable 10/17/19 20:57 Helmet Cells Not Reportable 10/17/19 20:57 Gallagher-Palco Bodies Not Reportable 10/17/19 20:57 [place] Rings Not Reportable 10/17/19 20:57 James Cells Not Reportable 10/17/19 20:57 Bite Cells Not Reportable 10/17/19 20:57 Crenated Cell Not Reportable 10/17/19 20:57 Elliptocytes Not Reportable 10/17/19 20:57 Acanthocytes (Spur) Not Reportable 10/17/19 20:57 Rouleaux Not Reportable 10/17/19 20:57 Hemoglobin C Crystals Not Reportable 10/17/19 20:57 Schistocytes Not Reportable 10/17/19 20:57 Malaria parasites Not Reportable 10/17/19 20:57 Alejandro Bodies Not Reportable 10/17/19 20:57 Hem Pathologist Commnt No 10/17/19 20:57 POC ABG pH 7.632 (7.35-7.45) H 10/20/19 10:25 ABG pH 7.520 pH Units (7.350-7.450) H 10/22/19 00:35 POC ABG pCO2 39.4 (35-45) 10/20/19 10:25 ABG pCO2 46.1 mm Hg 10/22/19 00:35 POC ABG pO2 74 (80-105) L 10/20/19 10:25 ABG pO2 64.4 mm Hg (80.0-90.0) L 10/22/19 00:35 POC ABG HCO3 41.6 (22-26 mml/L) 10/20/19 10:25 ABG HCO3 36.8 mmol/L (20.0-26.0) H 10/22/19 00:35 POC ABG Total CO2 43 (23-27mmol/L) 10/20/19 10:25 POC ABG O2 Sat 97 10/20/19 10:25 ABG O2 Saturation 97.0 % (95.0-99.0) 10/22/19 00:35 ABG O2 Content 13.9 (0.0-44) 10/22/19 00:35 POC ABG Base Excess 21 ((-2) - (+3)mmol/L) 10/20/19 10:25 ABG Base Excess 12.6 mmol/L (-2.0-3.0) H 10/22/19 00:35 ABG Hemoglobin 10.4 gm/dl (12.0-16.0) L 10/22/19 00:35 ABG Carboxyhemoglobin 1.6 % (0.0-5.0) 10/22/19 00:35 ABG Methemoglobin 0.5 % (0.0-1.5) 10/22/19 00:35 Oxyhemoglobin 95.0 % (95.0-99.0) 10/22/19 00:35 FiO2 90 % 10/22/19 00:35 Sodium 136 mmol/L (137-145) L D 10/22/19 15:40 Potassium 4.2 mmol/L (3.6-5.0) 10/22/19 15:40 Chloride 97.6 mmol/L (98-107) L 10/22/19 15:40 Carbon Dioxide 25 mmol/L (22-30) 10/22/19 15:40 Anion Gap 18 mmol/L 10/22/19 15:40 BUN 19 mg/dL (7-17) H 10/22/19 15:40 Creatinine 0.7 mg/dL (0.7-1.2) 10/22/19 15:40 Estimated GFR > 60 ml/min 10/22/19 15:40 BUN/Creatinine Ratio 27 % 10/22/19 15:40 Glucose 125 mg/dL (65-100) H 10/22/19 15:40 POC Glucose 108 (70-105) H 10/22/19 05:19 Calcium 8.9 mg/dL (8.4-10.2) 10/22/19 15:40 Total Bilirubin 0.20 mg/dL (0.1-1.2) 10/17/19 20:57 AST 57 units/L (5-40) H 10/17/19 20:57 ALT 22 units/L (7-56) 10/17/19 20:57 Alkaline Phosphatase 67 units/L (35-129) 10/17/19 20:57 Total Creatine Kinase 857 units/L (30-135) H 10/17/19 20:57 CK-MB (CK-2) 2.6 ng/mL (0.0-4.0) 10/17/19 20:57 CK-MB (CK-2) Rel Index 0.3 (0-4) 10/17/19 20:57 Troponin T < 0.010 ng/mL (0.00-0.029) 10/17/19 20:57 NT-Pro-B Natriuret Pep 317.6 pg/mL (0-450) 10/17/19 20:57 Total Protein 7.1 g/dL (6.3-8.2) 10/17/19 20:57 Albumin 3.0 g/dL (3.9-5) L 10/17/19 20:57 Albumin/Globulin Ratio 0.7 % 10/17/19 20:57 Procalcitonin 0.06 ng/mL (<0.15) 10/20/19 14:51 Influenza A (Rapid) Positive (Negative) A 10/17/19 Unknown Influenza B (Rapid) Negative (Negative) 10/17/19 Unknown Active Medications - Current Medications Current Medications: Generic Name Dose Route Start Last Admin Trade Name Freq PRN Reason Stop Dose Admin Albuterol 2.5 mg 10/17/19 22:47 10/19/19 14:34 Proventil IH 2.5 mg Q3HRT PRN Administration Shortness Of Breath Albuterol/Ipratropium 1 ampul 10/19/19 20:00 10/23/19 08:37 Duoneb *Not For Prn Use* IH 1 ampul TIDRT EDI Administration Amlodipine Besylate 10 mg 10/18/19 10:00 10/23/19 10:04 Amlodipine PO 10 mg DAILY EDI Administration Furosemide 40 mg 10/18/19 06:00 10/23/19 05:25 Lasix IV 40 mg BID@0600,1800 EDI Administration Heparin Sodium (Porcine) 5,000 unit 10/18/19 06:00 10/23/19 05:26 Heparin SUB-Q 5,000 unit Q8HR EDI Administration Lorazepam 1 mg 10/17/19 20:39 10/22/19 15:13 Ativan IV 1 mg ONCE PRN Administration Anxiety Magnesium Hydroxide 30 ml 10/17/19 22:47 Milk Of Magnesia PO Q4H PRN Constipation Metoprolol Tartrate 50 mg 10/18/19 10:00 10/23/19 10:04 Metoprolol PO 50 mg BID EDI Administration Morphine Sulfate 2 mg 10/17/19 22:47 Morphine IV Q4H PRN Pain, Moderate (4-6) Ondansetron HCl 4 mg 10/17/19 22:47 Zofran IV Q8H PRN Nausea And Vomiting Pantoprazole Sodium 40 mg 10/21/19 10:00 10/23/19 10:05 Protonix PO 40 mg DAILY EDI Administration Sodium Chloride 10 ml 10/18/19 10:00 10/23/19 10:07 Sodium Chloride Flush Syringe 10 Ml IV 10 ml BID EDI Administration Sodium Chloride 10 ml 10/17/19 22:47 Sodium Chloride Flush Syringe 10 Ml IV PRN PRN LINE FLUSH Nutrition/Malnutrition Assess - Dietary Evaluation Nutrition/Malnutrition Findings: Nutrition Notes Start: 10/19/19 13:20 Freq: Status: Active Protocol: Document 10/22/19 11:17 LM (Rec: 10/22/19 11:45 LM [id number]) Nutrition Notes Need for Assessment generated from: MD Order,Education Initial or Follow up Reassessment Current Diagnosis Hypertension,Respiratory Failure Other Pertinent Diagnosis Influlenza A pneumonia, lymphedema, pulmonary edema, SOB, DVT Current Diet Cardiac Labs/Tests Reviewed Pertinent Medications Lasix Height 5 ft 6 in Weight 265 kg [place] Body Weight (kg) 59.09 BMI 94.3 Weight change and time frame 5% wt loss in 2 months Subjective/Other Information Pt stated she is eating about a third of her meals because she is focusing more on breathing than eating right now. Pt stated she has lost 30 lb in 2 months intentionally. Provided pt general healthy eating handout and breifly discussed with pt due to pt on Bipap. #2 Nutrition Diagnosis Inadequate oral intake Etiology Bipap, difficulty breathing As Evidenced by Signs and Symptoms pt eating less than 50% of meals #1 Nutrition Diagnosis Food and nutrition-related knowledge deficit Etiology no prior nutrition education As Evidenced by Signs and Symptoms pt accepting general healthy eating handout Is patient on ventilator? No Is Patient Ambulatory and/or Out of Bed No REE-([facility]-confined to bed) 3957.528 Kcal/Kg value to use for calculation 7 Approximate Energy Requirements Using 1855 kcal/Kg Calculation Used for Recommendations Kcal/kg Additional Notes Protein needs: 127-159g (0.8- 1g/kg using AdjBW 159 kg) Fluid: 1 ml/kcal Nutrition Intervention Change Diet Order: Continue cardiac Teaching Recipient Patient Learning Readiness Good Teaching Methods Discussion,Handout Education Handouts Provided General Healthy Eating Barriers to Learning Auditory RD phone number provided Yes Patient aware of follow up options Yes Goal #1 Meet at least 75% of energy and protein needs Anticipated Discharge Needs: Cardiac diet Follow-Up By: 10/26/19 Additional Comments F/U for intakes/ further nutrition education needs
--- NOTE | 2019-10-23 11:46 | XRay Report ---
CHEST 1 VIEW INDICATION: respiratory failure. COMPARISON: 10/19/2019 FINDINGS: Support devices: None. Heart: Within normal limits. Pulmonary vasculature: Obscured. Lungs/Pleura: Bilateral multi lobar confluent airspace disease with air bronchograms. However, there has been improvement with some clearing of the lungs since the last exam. The cardiac and diaphragmat ic margins are now visible. Additional findings: None. IMPRESSION: 1. Multi lobar bilateral airspace disease with improvement . Signer Name: Rolf Ramos MD Signed: 10/23/2019 11:42 AM Workstation Name: [id number]
--- NOTE | 2019-10-23 12:39 | Progress Note ---
Assessment and Plan Cultures: 10/17/2019 blood culture: No growth 10/17/2019 influenza A: Positive A/P: 49-year-old female with morbid obesity, hypertension, lymphedema, functional quadriplegia and sleep apnea admitted with: #Influenza A with acute respiratory failure: on BiPAP, Tamiflu and empiric abx. Procal came back low, so abx were stopped on 10/22/2019. #Extreme morbid obesity: BMI is 94.3. OPTIMO trial for oseltamivir showed no difference in high dose v/s standard dose but the median BMI in the obese arm was only 33.8 and the highest BMI in that arm was 43. Hence, I think it would be appropriate to give his patient high dose Tamiflu. Recs: given her overall status, will extend Tamiflu by 2 more days she is on high dose Tamiflu due to her BMI of 94.3 Henny Nayak MD, FACP [facility] ([facility]) C: [phone] O: [phone] F: [phone] Subjective Date of service: 10/23/19 Interval history: Did not have a good night yesterday. No fever. SOB and back on BiPAP today. Objective - Exam Narrative Exam: Physical Exam: Constitutional: Alert, cooperative. Resp distress, on BiPAP. Morbid obesity Head, Ears, Nose: Normocephalic, atraumatic. External ears, nose normal Eyes: Conjunctivae/corneas clear. No icterus. No ptosis. Neck: Supple, no meningeal signs Cardiovascular: S1, S2 normal. Respiratory: AE clear bilaterally GI: Soft, non-tender; bowel sounds normal. No peritoneal signs Musculoskeletal: No pedal edema, no cyanosis. Skin: No rash or abscess Hem/Lymphatic: No palpable cervical or supraclavicular nodes. No lymphangitis Psych: Mood ok. Affect normal Neurological: Awake, alert, oriented. No gross abnormality - Constitutional Vitals: Vital Signs Temp Pulse Resp BP Pulse Ox 98.9 F 123 H 31 H 157/89 90 10/23/19 03:34 10/23/19 10:04 10/23/19 08:37 10/23/19 10:04 10/23/19 08:37 Temperature -Last 24 Hours Temperature 98.9 F Temperature 99.6 F Temperature 98.6 F Temperature 100.4 F - Labs CBC & Chem 7: 10/22/19 06:10 10/22/19 15:40 Labs: Abnormal lab results 10/22/19 Range/Units 15:40 Sodium 136 L D (137-145) mmol/L Chloride 97.6 L (98-107) mmol/L BUN 19 H (7-17) mg/dL Glucose 125 H (65-100) mg/dL - Imaging and cardiology Chest x-ray: report reviewed, image reviewed (b/l airspace disease, ?slight improvement)
[2019-10-23] MEDS: methylPREDNISolone Sod Succinate 40 MG/1 ML INJ IV SCH (15:49)
[2019-10-23] MEDS ORDERED: SODIUM CHLORIDE 0.9% 1000 ML 1,000 ML ONE ×2 (16:21→16:52)
[2019-10-23] MEDS ORDERED: PROPOFOL 200 MG/20 ML VIAL IV ONE ×2 (16:30→16:31)
[2019-10-23] MEDS ORDERED: LIP THERAPY VASELINE TP PRN (16:36)
[2019-10-23] MEDS ORDERED: MINERAL OIL/PETROLATUM, WHITE OPHTH OINT 3.5 GM OU PRN ×2 (16:36→17:29)
[2019-10-23] MEDS ORDERED: fentaNYL 100 MCG/2 ML INJ IV PRN ×2 (16:36→17:29)
--- NOTE | 2019-10-23 17:08 | Progress Note ---
Subjective Date of service: 10/23/19 Principal diagnosis: acute respiratory distress Interval history: Anesthesia called to ICU 255 for intubation of pt. Vitals upon arrival 91%, 117p, 22RR, 171/92. MDA called to bedside. Pt intubated with glidescope # 4 and 8.0 ETT. Meds given: Propofol 400mg, Lidocaine 100mg, Sux 300mg. Color change noted in CO2 exchanger. Breath sounds present bilaterally. O2 stat 95%. Intubation successful and pt placed on ventilator. Report given to ICU team. Objective - Constitutional Vitals: Vital Signs - 12hr 10/23/19 10/23/19 10/23/19 06:00 07:00 08:00 Pulse Rate 111 H 114 H 119 H Pulse Rate [ Anterior Bilateral Throughout] Respiratory 27 H 36 H 35 H Rate Respiratory Rate [Anterior Bilateral Throughout] Blood Pressure 148/90 180/94 140/67 O2 Sat by Pulse 88 89 89 Oximetry 10/23/19 10/23/19 10/23/19 08:37 09:00 10:00 Pulse Rate 116 H 136 H 122 H Pulse Rate [ 116 H Anterior Bilateral Throughout] Respiratory 32 H 23 27 H Rate Respiratory 31 H Rate [Anterior Bilateral Throughout] Blood Pressure 140/77 147/81 157/89 O2 Sat by Pulse 90 86 88 Oximetry 10/23/19 10/23/19 10/23/19 10:04 11:01 12:00 Pulse Rate 123 H 110 H 112 H Pulse Rate [ Anterior Bilateral Throughout] Respiratory 37 H 32 H Rate Respiratory Rate [Anterior Bilateral Throughout] Blood Pressure 157/89 151/82 140/77 O2 Sat by Pulse 86 92 Oximetry 10/23/19 10/23/19 10/23/19 12:01 13:01 13:30 Pulse Rate 105 H 111 H Pulse Rate [ 114 H Anterior Bilateral Throughout] Respiratory 31 H 26 H Rate Respiratory 29 H Rate [Anterior Bilateral Throughout] Blood Pressure 140/83 140/83 O2 Sat by Pulse 87 90 Oximetry 10/23/19 15:00 Pulse Rate 115 H Pulse Rate [ Anterior Bilateral Throughout] Respiratory 30 H Rate Respiratory Rate [Anterior Bilateral Throughout] Blood Pressure 157/93 O2 Sat by Pulse 89 Oximetry - Labs CBC & Chem 7: 10/22/19 06:10 10/22/19 15:40 Medications & Allergies - Medications Allergies/Adverse Reactions: Allergies No Known Allergies Allergy (Verified 10/17/19 20:40) Home Medications: Home Medications Medication Instructions Recorded Confirmed Last Taken Type Aspirin 325 mg PO DAILY 10/17/19 10/17/19 Unknown History Metoprolol 50 mg PO BID 10/17/19 10/17/19 Unknown History amLODIPine 10 mg PO DAILY 10/17/19 10/17/19 Unknown History Active Medications: Generic Name Dose Route Start Last Admin Trade Name Freq PRN Reason Stop Dose Admin Albuterol 2.5 mg 10/17/19 22:47 10/19/19 14:34 Proventil IH 2.5 mg Q3HRT PRN Administration Shortness Of Breath Albuterol/Ipratropium 1 ampul 10/19/19 20:00 10/23/19 13:30 Duoneb *Not For Prn Use* IH 1 ampul TIDRT EDI Administration Amlodipine Besylate 10 mg 10/18/19 10:00 10/23/19 10:04 Amlodipine PO 10 mg DAILY EDI Administration Fentanyl 50 mcg 10/23/19 16:36 Sublimaze IV Q10MIN PRN ANALGESIA Furosemide 40 mg 10/18/19 06:00 10/23/19 05:25 Lasix IV 40 mg BID@0600,1800 EDI Administration Heparin Sodium (Porcine) 5,000 unit 10/18/19 06:00 10/23/19 15:48 Heparin SUB-Q 5,000 unit Q8HR EDI Administration Hydrophilic Ointment 1 applic 10/23/19 16:36 Vaseline Lip Therapy TP Q2HR PRN Dry Lips Fentanyl Citrate 2,000 mcg in 100 mls @ 13.25 mls/hr 10/23/19 17:00 Fentanyl Drip Premix IV TITR EDI Protocol 1 MCG/KG/HR Propofol 1,000 mg in 100 mls @ 7.95 mls/hr 10/23/19 17:00 Diprivan 10 Mg/Ml IV TITR EDI Protocol 5 MCG/KG/MIN Lorazepam 1 mg 10/17/19 20:39 10/23/19 10:56 Ativan IV 1 mg ONCE PRN Administration Anxiety Magnesium Hydroxide 30 ml 10/17/19 22:47 Milk Of Magnesia PO Q4H PRN Constipation Methylprednisolone Sodium Succinate 40 mg 10/23/19 14:00 10/23/19 15:49 Solu-Medrol IV 10/25/19 14:01 40 mg Q8HR EDI Administration Metoprolol Tartrate 50 mg 10/18/19 10:00 10/23/19 10:04 Metoprolol PO 50 mg BID EDI Administration Morphine Sulfate 2 mg 10/17/19 22:47 Morphine IV Q4H PRN Pain, Moderate (4-6) Multi-Ingred Cream/Lotion/Oil/Oint 1 applic 10/23/19 16:36 Artificial Tears Ophth Oint OU Q4HR PRN Dry Eye(s) Ondansetron HCl 4 mg 10/17/19 22:47 Zofran IV Q8H PRN Nausea And Vomiting Oseltamivir Phosphate 150 mg 10/23/19 14:00 Tamiflu PO 10/24/19 22:01 BID EDI Pantoprazole Sodium 40 mg 10/21/19 10:00 10/23/19 10:05 Protonix PO 40 mg DAILY EDI Administration Sodium Chloride 10 ml 10/18/19 10:00 10/23/19 10:07 Sodium Chloride Flush Syringe 10 Ml IV 10 ml BID EDI Administration Sodium Chloride 10 ml 10/17/19 22:47 Sodium Chloride Flush Syringe 10 Ml IV PRN PRN LINE FLUSH
--- NOTE | 2019-10-23 17:28 | Event Note ---
Date: 10/23/19 10/23/19 Worsening hypoxia in spite of continuous NIPPV. Discussed with her sister , the need for oral intubation and MVS Aslo discussed the possibility that she may need tracheostomy. She verbalized understanding
[2019-10-23] MEDS: fentaNYL DRIP Premix 2,000 MCG/100 ML BAG IV SCH ×3 (17:30→21:32)
[2019-10-23] MEDS: PROPOFOL 1,000 MG/100 ML BOTTLE IV SCH ×3 (17:53→23:04)
--- NOTE | 2019-10-23 17:56 | XRay Report ---
CHEST 1 VIEW 5:42 PM INDICATION: ETT placement. COMPARISON: Earlier the same day FINDINGS: Support devices: Endotracheal tube is been placed in satisfactory position. Heart: Stable. Lungs/Pleura: Diffuse bilateral pulmonary opacities are worsened, this may be due at least in part to lower lung volumes on the current exam. No pneumothorax. IMPRESSION: 1. Endotracheal tube has been placed in satisfactory position. Signer Name: Nir Queen MD Signed: 10/23/2019 5:52 PM Workstation Name: [id number]
[2019-10-24] MEDS: METOPROLOL TARTRATE 50 MG TAB PO SCH ×2 (00:15→09:48)
[2019-10-24] MEDS: HEPARIN 5,000 UNIT/1 ML VIAL SUB-Q SCH ×4 (00:29→22:09)
[2019-10-24] MEDS: methylPREDNISolone Sod Succinate 40 MG/1 ML INJ IV SCH ×4 (00:30→22:07)
[2019-10-24] MEDS: fentaNYL DRIP Premix 2,000 MCG/100 ML BAG IV SCH ×8 (00:31→22:06)
[2019-10-24] MEDS: PROPOFOL 1,000 MG/100 ML BOTTLE IV SCH ×6 (01:58→23:06)
[2019-10-24] MEDS ORDERED: LIDOCAINE PF 100 MG/5 ML (CARDIAC SYRINGE) IV ONE (04:00)
[2019-10-24] MEDS ORDERED: SUCCINYLCHOLINE CHLORIDE 200 MG/10 ML INJ MDV ONE (04:00)
--- NOTE | 2019-10-24 04:25 | XRay Report ---
CHEST 1 VIEW, 10/24/2019 2:35 AM CLINICAL INFORMATION/INDICATION: Respiratory failure COMPARISON: Chest radiograph, 10/23/2019 at 5:42 PM FINDINGS: SUPPORT DEVICES: The endotracheal tube remains in stable satisfactory position. HEART: The cardiac silhouette is not well visualized secondary to lung disease. LUNGS/PLEURA: Diffuse bilateral pulmonary opacities have improved since the previous study. No pneumo thorax is identified. ADDITIONAL FINDINGS: No additional acute findings. IMPRESSION: 1. Interval improvement of diffuse bilateral pulmonary opacities. Signer Name: Kacie Willard MD Signed: 10/24/2019 4:21 AM Workstation Name: [id number]
--- NOTE | 2019-10-24 04:49 | XRay Report ---
EXAMINATION: Abdominal radiograph, one view, 10/24/2019 CLINICAL INFORMATION: Dobbhoff tube placement COMPARISON: None. FINDINGS: There has been placement of a weighted feeding tube with distal tip overlying the mid stoma ch. Signer Name: Kacie Willard MD Signed: 10/24/2019 4:45 AM Workstation Name: [id number]
--- NOTE | 2019-10-24 05:02 | Event Note ---
Date: 10/24/19 Sputum culture positive for gram negative rods. Currently patient is not on antibiotic therapy. patient initially had low-grade temp of 100.7 current temperature is now 97.5. Will start on Zosyn and consult ID.
[2019-10-24] MEDS: OSELTAMIVIR 75 MG CAP PO SCH ×2 (05:11→17:56)
[2019-10-24] MEDS: FUROSEMIDE 40 MG/4 ML INJ IV SCH ×2 (05:47→17:56)
[2019-10-24] MEDS ORDERED: PIPERACILLIN/TAZOBACTAM 3.375 3.375 GM/50 ML BAG IV SCH (06:00)
[2019-10-24] MEDS ORDERED: PIPERACIL/TAZOBACTA 4.5/NS 100 4.5 GM/100 ML VIAL IV SCH (06:00)
[2019-10-24] MEDS: IPRATROPIUM/ALBUTEROL SULFATE 3 ML AMPUL.NEB IH SCH ×3 (08:41→19:59)
[2019-10-24] MEDS: amLODIPine 10 MG TAB PO SCH (09:45)
[2019-10-24] MEDS: PANTOPRAZOLE 40 MG TAB PO SCH (11:21)
[2019-10-24] MEDS ORDERED: SIMPLE SYRUP 15 ML FEEDTUBE PRN ×2 (11:54)
--- NOTE | 2019-10-24 11:55 | Progress Note ---
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 Functional quadriplegia h/o HTN -VAP bundle addresed- the ETT is losing volumes. She is oxygenating well. With high ventilaotry demands, will conitnue to monitor closely. Will re-evlaute in the morning, may need a parlytic and tube exchange at the bedside -Aspiration precautions, HOB>40 degrees -Wean FIO2 for O2 sats 88-90%. Once FIO2 to down to 50% with adequate oxygenation, will start weaning PEEP -Daily assessment for readiness to wean -Oxygen restrictive strategies -Titrate sedation to RASS -1 - Anti-virals for Influenza infection-ID following, added Cefepime to therapy -Bronchodilators per protocol -Start tube feedings via the small bowel feeding tube -Continue airborne isolation -Continue with VTE prophylaxis -Continue stress ulcer prophylaxis - Continue with Accuchecks with glycemic control for SSI (While critically ill target blood glucose of 140-180 mg/dL; avoid hypoglycemia) - Continue mobility protocol for pressure ulcer prevention - Continue to monitor hemodynamics closely - Continue to monitor electrolyte profile closely and replete as indicated -Chronic home medications, resume as clinically indicated - Continue with diuresis while monitoring renal function -Blanchard catheter in this critically ill patient, with poor urine output, requiring accurate intake and output monitoring. She acutely de-saturates with minimal movement -PT/OT -Weight loss and life style modifications on discharge. May need surgical bariatric intervention( discussed this with her and her sister- patient currently does not have health insurance but has applied) -Out patient evaluation for sleep apnea Discussed with RT and RN Updated her sister who was at the bedside CONDITION: CRITICAL PROGNOSIS: GUARDED CODE STATUS: FULL CODE The high probability of a clinically significant, sudden or life-threatening deterioration of the [respiratory, cardiovascular,] system(s) required my full and direct attention, intervention and personal management. The aggregate critical care time was [35] minutes without overlap. Time includes spent on; [x] Data Review and interpretation [x] Patient assessment and monitoring of vital signs [x] Documentation [x] Medication orders and management Subjective Date of service: 10/24/19 Principal diagnosis: acute respiratory distress Interval history: Patient is seen today for: acute hypoxic-hypercapnic respiratory failure on MVS; influenza infection; extreme obesity with probable DEAN Seen and examined at bedside; 24hour events reviewed; nursing and respiratory care staff consulted; no adverse overnight events reported to me; Intubated yesterday for increasing FIO2 requirements, had been on continuous BIPAP without improvement; No fevers, no diarrhea, no vomiting. Patient is on MVS, ETT in place to MVS FIO2 75%, PEEP 14- airway pressures are wtihin normal. On fentanyl and propofol- comfortable Vitals, labs, medications, chart and imaging reviewed. Discussed with RT and RN Objective Vital Signs - 12hr 10/24/19 10/24/19 10/24/19 00:00 00:15 00:16 Temperature Pulse Rate 102 H 101 H 101 H Pulse Rate [ 101 H From Monitor] Respiratory 16 21 Rate Blood Pressure 98/51 O2 Sat by Pulse 100 98 Oximetry 10/24/19 10/24/19 10/24/19 00:19 00:30 00:46 Temperature Pulse Rate 100 H 102 H 102 H Pulse Rate [ From Monitor] Respiratory 20 18 Rate Blood Pressure 97/51 O2 Sat by Pulse 100 97 98 Oximetry 10/24/19 10/24/19 10/24/19 01:00 01:16 01:30 Temperature Pulse Rate 101 H 100 H 99 H Pulse Rate [ From Monitor] Respiratory 21 20 11 L Rate Blood Pressure O2 Sat by Pulse 98 97 98 Oximetry 10/24/19 10/24/19 10/24/19 01:46 02:00 02:16 Temperature Pulse Rate 99 H 101 H 99 H Pulse Rate [ From Monitor] Respiratory 21 16 20 Rate Blood Pressure O2 Sat by Pulse 98 98 98 Oximetry 10/24/19 10/24/19 10/24/19 02:30 02:46 03:00 Temperature Pulse Rate 97 H 98 H 97 H Pulse Rate [ From Monitor] Respiratory 17 26 H 13 Rate Blood Pressure O2 Sat by Pulse 98 98 98 Oximetry 10/24/19 10/24/19 10/24/19 03:16 03:30 03:43 Temperature Pulse Rate 99 H 101 H 100 H Pulse Rate [ From Monitor] Respiratory 18 19 Rate Blood Pressure 98/52 O2 Sat by Pulse 98 99 98 Oximetry 10/24/19 10/24/19 10/24/19 03:46 03:54 04:00 Temperature 97.5 F L Pulse Rate 98 H 98 H Pulse Rate [ 98 H From Monitor] Respiratory 26 H 22 Rate Blood Pressure O2 Sat by Pulse 99 91 Oximetry 10/24/19 10/24/19 10/24/19 04:16 04:30 04:46 Temperature Pulse Rate 99 H 100 H 99 H Pulse Rate [ From Monitor] Respiratory 20 15 20 Rate Blood Pressure O2 Sat by Pulse 91 91 91 Oximetry 10/24/19 10/24/19 10/24/19 05:00 05:16 05:30 Temperature Pulse Rate 99 H 95 H 95 H Pulse Rate [ From Monitor] Respiratory 17 14 14 Rate Blood Pressure O2 Sat by Pulse 92 91 94 Oximetry 10/24/19 10/24/19 10/24/19 05:46 06:00 06:16 Temperature Pulse Rate 100 H 96 H 100 H Pulse Rate [ From Monitor] Respiratory 20 22 14 Rate Blood Pressure O2 Sat by Pulse 95 95 95 Oximetry 10/24/19 10/24/19 10/24/19 06:30 06:46 07:00 Temperature Pulse Rate 98 H 100 H 97 H Pulse Rate [ From Monitor] Respiratory 25 H 28 H 26 H Rate Blood Pressure 144/82 O2 Sat by Pulse 93 88 94 Oximetry 10/24/19 10/24/19 10/24/19 07:16 07:30 07:46 Temperature Pulse Rate 95 H 95 H 95 H Pulse Rate [ From Monitor] Respiratory 24 26 H 24 Rate Blood Pressure 144/82 144/82 O2 Sat by Pulse 95 96 96 Oximetry 10/24/19 10/24/19 10/24/19 08:00 08:16 08:30 Temperature 97.7 F Pulse Rate 92 H 93 H 94 H Pulse Rate [ From Monitor] Respiratory 28 H 30 H 28 H Rate Blood Pressure O2 Sat by Pulse 95 95 95 Oximetry 10/24/19 10/24/19 10/24/19 08:46 08:48 08:54 Temperature Pulse Rate 97 H 94 H 96 H Pulse Rate [ From Monitor] Respiratory 17 Rate Blood Pressure 144/82 O2 Sat by Pulse 95 96 Oximetry 10/24/19 10/24/19 10/24/19 09:00 09:16 09:30 Temperature Pulse Rate 101 H 99 H 101 H Pulse Rate [ From Monitor] Respiratory 26 H 26 H 22 Rate Blood Pressure O2 Sat by Pulse 89 90 94 Oximetry 10/24/19 10/24/19 10/24/19 09:45 09:46 09:48 Temperature Pulse Rate 99 H 97 H Pulse Rate [ From Monitor] Respiratory 21 Rate Blood Pressure 103/53 115/57 O2 Sat by Pulse 93 Oximetry 10/24/19 10/24/19 10/24/19 10:00 10:16 10:30 Temperature Pulse Rate 98 H 98 H 98 H Pulse Rate [ From Monitor] Respiratory 25 H 20 19 Rate Blood Pressure O2 Sat by Pulse 98 98 99 Oximetry 10/24/19 10:46 Temperature Pulse Rate 97 H Pulse Rate [ From Monitor] Respiratory 21 Rate Blood Pressure 144/82 O2 Sat by Pulse 99 Oximetry Constitutional: other (sedated, orally intubated on MVS, no patient-ventilator dys-synchrony, ETT at 24cm at the lip) Eyes: non-icteric ENT: oropharynx moist, other (small bowel feeding tube in nares) Neck: supple, no lymphadenopathy, no JVD, other (short neck, alrge circunference) Effort: normal Ascultation: Bilateral: diminished breath sounds Cardiovascular: regular rate and rhythm, other (S1,S2) Gastrointestinal: normoactive bowel sounds, soft, non-tender, non-distended Integumentary: normal Extremities: no cyanosis, no edema, pink and warm, pulses normal Neurologic: pupils equal and round, unable to assess (sedated) Psychiatric: other (unable to assess-sedated) CBC and BMP: 10/22/19 06:10 10/22/19 15:40 ABG, PT/INR, D-dimer: ABG POC ABG pH 7.419 (7.35-7.45) 10/24/19 05:49 ABG pH 7.520 pH Units (7.350-7.450) H 10/22/19 00:35 POC ABG pCO2 64.1 (35-45) H 10/24/19 05:49 ABG pCO2 46.1 mm Hg 10/22/19 00:35 POC ABG pO2 73 (80-105) L 10/24/19 05:49 ABG pO2 64.4 mm Hg (80.0-90.0) L 10/22/19 00:35 POC ABG HCO3 41.5 (22-26 mml/L) 10/24/19 05:49 POC ABG Total CO2 43 (23-27mmol/L) 10/24/19 05:49 POC ABG O2 Sat 94 10/24/19 05:49 ABG O2 Saturation 97.0 % (95.0-99.0) 10/22/19 00:35 Abnormal lab findings: Abnormal Labs 10/17/19 10/17/19 10/17/19 20:57 20:57 Unknown WBC 4.0 L MCV 78 L MCH 25 L RDW 24.7 H Lymph % (Auto) [place] % (Auto) Lymph # Seg Neutrophils % Seg Neuts % (Manual) 77.0 H Monocytes % (Manual) 9.0 H Lymphocytes # (Manual) 0.6 L POC ABG pH ABG pH POC ABG pCO2 POC ABG pO2 ABG pO2 ABG HCO3 ABG Base Excess ABG Hemoglobin Sodium Potassium 3.5 L Chloride Carbon Dioxide BUN Creatinine 0.6 L Glucose 147 H POC Glucose Calcium 7.9 L AST 57 H Total Creatine Kinase 857 H Albumin 3.0 L Influenza A (Rapid) Positive A 10/18/19 10/18/19 10/18/19 05:21 05:21 09:19 WBC 3.3 L MCV MCH 25 L RDW 24.3 H Lymph % (Auto) 12.5 L [place] % (Auto) 7.9 H Lymph # 0.4 L Seg Neutrophils % 78.6 H Seg Neuts % (Manual) Monocytes % (Manual) Lymphocytes # (Manual) POC ABG pH ABG pH POC ABG pCO2 POC ABG pO2 ABG pO2 131.3 H ABG HCO3 30.2 H ABG Base Excess 4.5 H ABG Hemoglobin 10.7 L Sodium Potassium Chloride Carbon Dioxide BUN Creatinine Glucose 167 H POC Glucose Calcium 8.3 L AST Total Creatine Kinase Albumin Influenza A (Rapid) 10/18/19 10/18/19 10/19/19 11:28 18:27 06:39 WBC MCV MCH RDW Lymph % (Auto) [place] % (Auto) Lymph # Seg Neutrophils % Seg Neuts % (Manual) Monocytes % (Manual) Lymphocytes # (Manual) POC ABG pH 7.461 H 7.487 H ABG pH POC ABG pCO2 53.4 H 52.8 H 51.7 H POC ABG pO2 70 L 71 L ABG pO2 ABG HCO3 ABG Base Excess ABG Hemoglobin Sodium Potassium Chloride Carbon Dioxide BUN Creatinine Glucose POC Glucose Calcium AST Total Creatine Kinase Albumin Influenza A (Rapid) 10/19/19 10/20/19 10/20/19 23:25 05:31 09:08 WBC MCV MCH RDW Lymph % (Auto) [place] % (Auto) Lymph # Seg Neutrophils % Seg Neuts % (Manual) Monocytes % (Manual) Lymphocytes # (Manual) POC ABG pH ABG pH POC ABG pCO2 POC ABG pO2 ABG pO2 ABG HCO3 ABG Base Excess ABG Hemoglobin Sodium Potassium Chloride Carbon Dioxide BUN Creatinine Glucose POC Glucose 203 H 144 H 163 H Calcium AST Total Creatine Kinase Albumin Influenza A (Rapid) 10/20/19 10/20/19 10/20/19 10:25 13:22 14:51 WBC MCV MCH RDW Lymph % (Auto) [place] % (Auto) Lymph # Seg Neutrophils % Seg Neuts % (Manual) Monocytes % (Manual) Lymphocytes # (Manual) POC ABG pH 7.632 H ABG pH POC ABG pCO2 POC ABG pO2 74 L ABG pO2 ABG HCO3 ABG Base Excess ABG Hemoglobin Sodium 147 H Potassium Chloride Carbon Dioxide 31 H BUN Creatinine 0.5 L Glucose 154 H POC Glucose 178 H Calcium 8.2 L AST Total Creatine Kinase Albumin Influenza A (Rapid) 10/20/19 10/20/19 10/20/19 14:51 17:16 21:30 WBC 11.2 H MCV 78 L MCH 25 L RDW 23.9 H Lymph % (Auto) [place] % (Auto) Lymph # Seg Neutrophils % Seg Neuts % (Manual) Monocytes % (Manual) Lymphocytes # (Manual) POC ABG pH ABG pH POC ABG pCO2 POC ABG pO2 ABG pO2 ABG HCO3 ABG Base Excess ABG Hemoglobin Sodium Potassium Chloride Carbon Dioxide BUN Creatinine Glucose POC Glucose 143 H 152 H Calcium AST Total Creatine Kinase Albumin Influenza A (Rapid) 10/20/19 10/21/19 10/21/19 22:52 05:55 08:27 WBC MCV MCH RDW Lymph % (Auto) [place] % (Auto) Lymph # Seg Neutrophils % Seg Neuts % (Manual) Monocytes % (Manual) Lymphocytes # (Manual) POC ABG pH ABG pH POC ABG pCO2 POC ABG pO2 ABG pO2 ABG HCO3 ABG Base Excess ABG Hemoglobin Sodium Potassium Chloride Carbon Dioxide BUN Creatinine Glucose POC Glucose 179 H 115 H 131 H Calcium AST Total Creatine Kinase Albumin Influenza A (Rapid) 10/21/19 10/21/19 10/21/19 11:52 16:23 23:38 WBC MCV MCH RDW Lymph % (Auto) [place] % (Auto) Lymph # Seg Neutrophils % Seg Neuts % (Manual) Monocytes % (Manual) Lymphocytes # (Manual) POC ABG pH ABG pH POC ABG pCO2 POC ABG pO2 ABG pO2 ABG HCO3 ABG Base Excess ABG Hemoglobin Sodium Potassium Chloride Carbon Dioxide BUN Creatinine Glucose POC Glucose 122 H 120 H 115 H Calcium AST Total Creatine Kinase Albumin Influenza A (Rapid) 10/22/19 10/22/19 10/22/19 00:35 05:19 06:10 WBC MCV MCH 25 L RDW 22.8 H Lymph % (Auto) [place] % (Auto) Lymph # Seg Neutrophils % Seg Neuts % (Manual) Monocytes % (Manual) Lymphocytes # (Manual) POC ABG pH ABG pH 7.520 H POC ABG pCO2 POC ABG pO2 ABG pO2 64.4 L ABG HCO3 36.8 H ABG Base Excess 12.6 H ABG Hemoglobin 10.4 L Sodium Potassium Chloride Carbon Dioxide BUN Creatinine Glucose POC Glucose 108 H Calcium AST Total Creatine Kinase Albumin Influenza A (Rapid) 10/22/19 10/24/19 15:40 05:49 WBC MCV MCH RDW Lymph % (Auto) [place] % (Auto) Lymph # Seg Neutrophils % Seg Neuts % (Manual) Monocytes % (Manual) Lymphocytes # (Manual) POC ABG pH ABG pH POC ABG pCO2 64.1 H POC ABG pO2 73 L ABG pO2 ABG HCO3 ABG Base Excess ABG Hemoglobin Sodium 136 L D Potassium Chloride 97.6 L Carbon Dioxide BUN 19 H Creatinine Glucose 125 H POC Glucose Calcium AST Total Creatine Kinase Albumin Influenza A (Rapid) Chest x-ray: image reviewed
--- NOTE | 2019-10-24 12:20 | Progress Note ---
Assessment and Plan Cultures: 10/17/2019 blood culture: No growth 10/17/2019 influenza A: Positive 10/23/2018 Resp culture: GNR on gram stain A/P: 49-year-old female with morbid obesity, hypertension, lymphedema, functional quadriplegia and sleep apnea admitted with: #Influenza A with acute respiratory failure: on BiPAP, Tamiflu and empiric abx. Procal came back low, so abx were stopped on 10/22/2019. Now restarted due to GNR on Gram stain, though no new infiltrate or fever. #Extreme morbid obesity: BMI is 94.3. OPTIMO trial for oseltamivir showed no difference in high dose v/s standard dose but the median BMI in the obese arm was only 33.8 and the highest BMI in that arm was 43. Hence, I think it would be appropriate to give his patient high dose Tamiflu. Recs: continue high dose Tamiflu x 1 more day Zosyn switched to IV Cefepime 2 gm q8 hrs Henny Nayak MD, FACP [facility] ([facility]) C: [phone] O: [phone] F: [phone] Subjective Date of service: 10/24/19 Principal diagnosis: acute respiratory distress Interval history: Got intubated yesterday due to worsening resp failure. continues to have high oxygen requirements. Objective - Exam Narrative Exam: Physical Exam: Constitutional: sedated, intubated. Morbidly obese Head, Ears, Nose: Normocephalic, atraumatic. External ears, nose normal Eyes: Conjunctivae/corneas clear. No icterus. No ptosis. Neck: intubated Oral: intubated Cardiovascular: S1, S2 normal. Respiratory: Good air entry, clear to auscultation bilaterally GI: Soft, non-tender; bowel sounds normal. No peritoneal signs Musculoskeletal: No pedal edema, no cyanosis. Skin: No rash or abscess Hem/Lymphatic: No palpable cervical or supraclavicular nodes. No lymphangitis Psych: no agitation Neurological: sedated, intubated, on vent - Constitutional Vitals: Vital Signs Temp Pulse Resp BP Pulse Ox 97.7 F 97 H 21 144/82 99 10/24/19 08:00 10/24/19 10:46 10/24/19 10:46 10/24/19 10:46 10/24/19 10:46 Temperature -Last 24 Hours Temperature 97.7 F Temperature 98.7 F Temperature 97.5 F Temperature 100.7 F Temperature 99.5 F Temperature 99.4 F - Labs CBC & Chem 7: 10/22/19 06:10 10/22/19 15:40 Labs: Abnormal lab results 10/24/19 Range/Units 05:49 POC ABG pCO2 64.1 H (35-45) POC ABG pO2 73 L (80-105)
[2019-10-24] MEDS: CEFEPIME/NS 2 GM/100 ML 2 GM/100 ML BAG IV SCH ×2 (14:03→22:09)
[2019-10-24] MEDS ORDERED: SODIUM CHLORIDE 0.9% 500 ML 500 ML ONE (14:22)
--- NOTE | 2019-10-24 14:29 | Progress Note ---
Assessment and Plan Assessment and plan: Patient is a 49 yo woman with a history of severe obesity BMI 93.6 (579 lbs), hypertension, lymphedema, functional quadriplegia and DEAN non compliant with CPAP who presents to [facility] ED with SOB and found to be hypoxic with pulse ox in the 50s. She was treated with BIPAP up until 10/23/2019 around 5pm when she was intubated by Anesthesia using guidescope. Trach aspirate growing GNR and iv zosyn started then switched to Cefepime by ID. * pCXR shows Probable congestive heart failure * TTE Conclusions: The left ventricular size is mildly dilated, mild to moderate concentric LVH, est EF 40-45%, left atrium is mildly dilated, trace MR, mild TR, mild to moderate Pulmonary hypertension, RVSP is calculated at 42 mmHG Acute hypoxic respiratory failure, failed BIPAP, intubated 10/23/2019: 85% on PEEP 14, try to wean as possible, CCM/pulm following Sepsis Pneumonia due to Influenza A: treatment with Tamiflu, ID following Acute diastolic heart failure suspected: treated with iv lasix BID, consulted Cardiology, input noted Bronchospasm: added duonebs around the clock and ordered a dose of iv Solumedrol, consulted Pulm/CCM Extreme Obesity, BMI re-calculated to 94.3: supportive care, consulted Morning Show Host Suspected Obesity Hypoventilation syndrome DVT ppx sq heparin full code History Interval history: Patient was seen and examined. Follow-up on current diagnosis of respiratory failure, influenza pna. Overnight uneventful as no events directly reported to me. Intubated and sedated. Imaging, nursing note, chart, labs and old chart reviewed. Hospitalist Physical - Physical exam Narrative exam: Gen: ill appearing, bmi 93.6 Awake, Alert, Orientated HEENT: NCAT, EOMI, PERRL, OP Clear Neck: supple, no adenopathy, no thyromegaly, equiv JVD CVS/Heart: Regular tachycardiac, normal S1S2, pulses present bilaterally Chest/Lungs: tachypneic, diminished bs bilateral with wheezing, Symmetrical chest expansion, good air entry bilaterally GI/Abdomen: soft, NTND, good bowel sounds, no guarding or rebound /Bladder: no suprapubic tenderness, no CVA or paraspinal tenderness Extermity/Skin: ble edema improved MSK: FROM x 4 Neuro: CN 2-12 grossly intact, no new focal deficits Psych: calm - Constitutional Vitals: Temp Pulse Resp BP Pulse Ox 98.5 F 98 H 24 144/82 95 10/24/19 13:17 10/24/19 13:01 10/24/19 13:01 10/24/19 13:01 10/24/19 13:01 General appearance: Present: obese. Absent: mild distress Results - Labs CBC & Chem 7: 10/22/19 06:10 10/22/19 15:40 Labs: Laboratory Last Values WBC 10.0 K/mm3 (4.5-11.0) 10/22/19 06:10 RBC 4.13 M/mm3 (3.65-5.03) 10/22/19 06:10 Hgb 10.4 gm/dl (10.1-14.3) 10/22/19 06:10 Hct 32.6 % (30.3-42.9) 10/22/19 06:10 MCV 79 fl (79-97) 10/22/19 06:10 MCH 25 pg (28-32) L 10/22/19 06:10 MCHC 32 % (30-34) 10/22/19 06:10 RDW 22.8 % (13.2-15.2) H 10/22/19 06:10 Plt Count 248 K/mm3 (140-440) 10/22/19 06:10 Lymph % (Auto) 12.5 % (13.4-35.0) L 10/18/19 05:21 [place] % (Auto) 7.9 % (0.0-7.3) H 10/18/19 05:21 Eos % (Auto) 0.0 % (0.0-4.3) 10/18/19 05:21 Baso % (Auto) 1.0 % (0.0-1.8) 10/18/19 05:21 Lymph # 0.4 K/mm3 (1.2-5.4) L 10/18/19 05:21 [place] # 0.3 K/mm3 (0.0-0.8) 10/18/19 05:21 Eos # 0.0 K/mm3 (0.0-0.4) 10/18/19 05:21 Baso # 0.0 K/mm3 (0.0-0.1) 10/18/19 05:21 Add Manual Diff Complete 10/17/19 20:57 Total Counted 100 10/17/19 20:57 Seg Neutrophils % 78.6 % (40.0-70.0) H 10/18/19 05:21 Seg Neuts % (Manual) 77.0 % (40.0-70.0) H 10/17/19 20:57 Band Neutrophils % 0 % 10/17/19 20:57 Lymphocytes % (Manual) 14.0 % (13.4-35.0) 10/17/19 20:57 Reactive Lymphs % (Man) 0 % 10/17/19 20:57 Monocytes % (Manual) 9.0 % (0.0-7.3) H 10/17/19 20:57 Eosinophils % (Manual) 0 % (0.0-4.3) 10/17/19 20:57 Basophils % (Manual) 0 % (0.0-1.8) 10/17/19 20:57 Metamyelocytes % 0 % 10/17/19 20:57 Myelocytes % 0 % 10/17/19 20:57 Promyelocytes % 0 % 10/17/19 20:57 Blast Cells % 0 % 10/17/19 20:57 Nucleated RBC % Not Reportable 10/17/19 20:57 Seg Neutrophils # 2.6 K/mm3 (1.8-7.7) 10/18/19 05:21 Seg Neutrophils # Man 3.1 K/mm3 (1.8-7.7) 10/17/19 20:57 Band Neutrophils # 0.0 K/mm3 10/17/19 20:57 Lymphocytes # (Manual) 0.6 K/mm3 (1.2-5.4) L 10/17/19 20:57 Abs React Lymphs (Man) 0.0 K/mm3 10/17/19 20:57 Monocytes # (Manual) 0.4 K/mm3 (0.0-0.8) 10/17/19 20:57 Eosinophils # (Manual) 0.0 K/mm3 (0.0-0.4) 10/17/19 20:57 Basophils # (Manual) 0.0 K/mm3 (0.0-0.1) 10/17/19 20:57 Metamyelocytes # 0.0 K/mm3 10/17/19 20:57 Myelocytes # 0.0 K/mm3 10/17/19 20:57 Promyelocytes # 0.0 K/mm3 10/17/19 20:57 Blast Cells # 0.0 K/mm3 10/17/19 20:57 WBC Morphology Not Reportable 10/17/19 20:57 Hypersegmented Neuts Not Reportable 10/17/19 20:57 Hyposegmented Neuts Not Reportable 10/17/19 20:57 Hypogranular Neuts Not Reportable 10/17/19 20:57 Smudge Cells Not Reportable 10/17/19 20:57 Toxic Granulation Not Reportable 10/17/19 20:57 Toxic Vacuolation Not Reportable 10/17/19 20:57 Dohle Bodies Not Reportable 10/17/19 20:57 Pelger-Huet Anomaly Not Reportable 10/17/19 20:57 Krista Rods Not Reportable 10/17/19 20:57 Platelet Estimate Not Reportable 10/17/19 20:57 Clumped Platelets Not Reportable 10/17/19 20:57 Plt Clumps, EDTA Not Reportable 10/17/19 20:57 Large Platelets Not Reportable 10/17/19 20:57 Giant Platelets Not Reportable 10/17/19 20:57 Platelet Satelliting Not Reportable 10/17/19 20:57 Plt Morphology Comment Not Reportable 10/17/19 20:57 RBC Morphology Not Reportable 10/17/19 20:57 Dimorphic RBCs Not Reportable 10/17/19 20:57 Polychromasia Not Reportable 10/17/19 20:57 Hypochromasia 1+ 10/17/19 20:57 Poikilocytosis Not Reportable 10/17/19 20:57 Anisocytosis 2+ 10/17/19 20:57 Microcytosis Not Reportable 10/17/19 20:57 Macrocytosis Not Reportable 10/17/19 20:57 Spherocytes Not Reportable 10/17/19 20:57 Pappenheimer Bodies Not Reportable 10/17/19 20:57 Sickle Cells Not Reportable 10/17/19 20:57 Target Cells Not Reportable 10/17/19 20:57 Tear Drop Cells Not Reportable 10/17/19 20:57 Ovalocytes Not Reportable 10/17/19 20:57 Helmet Cells Not Reportable 10/17/19 20:57 [place] Bodies Not Reportable 10/17/19 20:57 [place] Rings Not Reportable 10/17/19 20:57 James Cells Not Reportable 10/17/19 20:57 Bite Cells Not Reportable 10/17/19 20:57 Crenated Cell Not Reportable 10/17/19 20:57 Elliptocytes Not Reportable 10/17/19 20:57 Acanthocytes (Spur) Not Reportable 10/17/19 20:57 Rouleaux Not Reportable 10/17/19 20:57 Hemoglobin C Crystals Not Reportable 10/17/19 20:57 Schistocytes Not Reportable 10/17/19 20:57 Malaria parasites Not Reportable 10/17/19 20:57 Alejandro Bodies Not Reportable 10/17/19 20:57 Hem Pathologist Commnt No 10/17/19 20:57 POC ABG pH 7.419 (7.35-7.45) 10/24/19 05:49 ABG pH 7.520 pH Units (7.350-7.450) H 10/22/19 00:35 POC ABG pCO2 64.1 (35-45) H 10/24/19 05:49 ABG pCO2 46.1 mm Hg 10/22/19 00:35 POC ABG pO2 73 (80-105) L 10/24/19 05:49 ABG pO2 64.4 mm Hg (80.0-90.0) L 10/22/19 00:35 POC ABG HCO3 41.5 (22-26 mml/L) 10/24/19 05:49 ABG HCO3 36.8 mmol/L (20.0-26.0) H 10/22/19 00:35 POC ABG Total CO2 43 (23-27mmol/L) 10/24/19 05:49 POC ABG O2 Sat 94 10/24/19 05:49 ABG O2 Saturation 97.0 % (95.0-99.0) 10/22/19 00:35 ABG O2 Content 13.9 (0.0-44) 10/22/19 00:35 POC ABG Base Excess 17 ((-2) - (+3)mmol/L) 10/24/19 05:49 ABG Base Excess 12.6 mmol/L (-2.0-3.0) H 10/22/19 00:35 ABG Hemoglobin 10.4 gm/dl (12.0-16.0) L 10/22/19 00:35 ABG Carboxyhemoglobin 1.6 % (0.0-5.0) 10/22/19 00:35 ABG Methemoglobin 0.5 % (0.0-1.5) 10/22/19 00:35 Oxyhemoglobin 95.0 % (95.0-99.0) 10/22/19 00:35 FiO2 90 % 10/24/19 05:49 Sodium 136 mmol/L (137-145) L D 10/22/19 15:40 Potassium 4.2 mmol/L (3.6-5.0) 10/22/19 15:40 Chloride 97.6 mmol/L (98-107) L 10/22/19 15:40 Carbon Dioxide 25 mmol/L (22-30) 10/22/19 15:40 Anion Gap 18 mmol/L 10/22/19 15:40 BUN 19 mg/dL (7-17) H 10/22/19 15:40 Creatinine 0.7 mg/dL (0.7-1.2) 10/22/19 15:40 Estimated GFR > 60 ml/min 10/22/19 15:40 BUN/Creatinine Ratio 27 % 10/22/19 15:40 Glucose 125 mg/dL (65-100) H 10/22/19 15:40 POC Glucose 108 (70-105) H 10/22/19 05:19 Calcium 8.9 mg/dL (8.4-10.2) 10/22/19 15:40 Total Bilirubin 0.20 mg/dL (0.1-1.2) 10/17/19 20:57 AST 57 units/L (5-40) H 10/17/19 20:57 ALT 22 units/L (7-56) 10/17/19 20:57 Alkaline Phosphatase 67 units/L (35-129) 10/17/19 20:57 Total Creatine Kinase 857 units/L (30-135) H 10/17/19 20:57 CK-MB (CK-2) 2.6 ng/mL (0.0-4.0) 10/17/19 20:57 CK-MB (CK-2) Rel Index 0.3 (0-4) 10/17/19 20:57 Troponin T < 0.010 ng/mL (0.00-0.029) 10/17/19 20:57 NT-Pro-B Natriuret Pep 317.6 pg/mL (0-450) 10/17/19 20:57 Total Protein 7.1 g/dL (6.3-8.2) 10/17/19 20:57 Albumin 3.0 g/dL (3.9-5) L 10/17/19 20:57 Albumin/Globulin Ratio 0.7 % 10/17/19 20:57 Procalcitonin 0.06 ng/mL (<0.15) 10/20/19 14:51 Influenza A (Rapid) Positive (Negative) A 10/17/19 Unknown Influenza B (Rapid) Negative (Negative) 10/17/19 Unknown Active Medications - Current Medications Current Medications: Generic Name Dose Route Start Last Admin Trade Name Freq PRN Reason Stop Dose Admin Albuterol 2.5 mg 10/17/19 22:47 10/19/19 14:34 Proventil IH 2.5 mg Q3HRT PRN Administration Shortness Of Breath Albuterol/Ipratropium 1 ampul 10/19/19 20:00 10/24/19 08:41 Duoneb *Not For Prn Use* IH 1 ampul TIDRT EDI Administration Amlodipine Besylate 10 mg 10/18/19 10:00 10/24/19 09:45 Amlodipine PO Not Given DAILY [facility] Lipase/Protease/Amylase 1 each 10/24/19 11:54 Pancreazlila Irizarry 10,500 Unit FEEDTUBE PRN PRN For Clogged Feeding Tube Fentanyl 50 mcg 10/23/19 17:29 Sublimaze IV Q10MIN PRN ANALGESIA Furosemide 40 mg 10/18/19 06:00 10/24/19 05:47 Lasix IV 40 mg BID@0600,1800 EDI Administration Heparin Sodium (Porcine) 5,000 unit 10/18/19 06:00 10/24/19 14:04 Heparin SUB-Q 5,000 unit Q8HR EDI Administration Hydrophilic Ointment 1 applic 10/23/19 17:29 Vaseline Lip Therapy TP Q2HR PRN Dry Lips Fentanyl Citrate 2,000 mcg in 100 mls @ 13.25 mls/hr 10/23/19 18:00 10/24/19 12:23 Fentanyl Drip Premix IV 3 mcg/kg/hr TITR EDI 39.75 mls/hr Administration Protocol 1 MCG/KG/HR Propofol 1,000 mg in 100 mls @ 7.95 mls/hr 10/23/19 18:00 10/24/19 12:12 Diprivan 10 Mg/Ml IV 20 mcg/kg/min TITR EDI 31.8 mls/hr Administration Protocol 5 MCG/KG/MIN Cefepime HCl 2 gm in 100 mls @ 200 mls/hr 10/24/19 13:00 10/24/19 14:03 Cefepime/Ns 2 Gm/100 Ml IV 200 mls/hr Q8H [facility] Administration Protocol Lorazepam 1 mg 10/17/19 20:39 10/23/19 10:56 Ativan IV 1 mg ONCE PRN Administration Anxiety Magnesium Hydroxide 30 ml 10/17/19 22:47 Milk Of Magnesia PO Q4H PRN Constipation Methylprednisolone Sodium Succinate 40 mg 10/23/19 14:00 10/24/19 14:04 Solu-Medrol IV 10/25/19 14:01 40 mg Q8HR [facility] Administration Metoprolol Tartrate 50 mg 10/18/19 10:00 10/24/19 09:48 Metoprolol PO Not Given BID [facility] Morphine Sulfate 2 mg 10/17/19 22:47 Morphine IV Q4H PRN Pain, Moderate (4-6) Multi-Ingred Cream/Lotion/Oil/Oint 1 applic 10/23/19 17:29 Artificial Tears Ophth Oint OU Q4HR PRN Dry Eye(s) Ondansetron HCl 4 mg 10/17/19 22:47 Zofran IV Q8H PRN Nausea And Vomiting Oseltamivir Phosphate 150 mg 10/24/19 17:00 Tamiflu PO 10/25/19 17:01 Q12H [facility] Pantoprazole Sodium 40 mg 10/21/19 10:00 10/24/19 11:21 Protonix PO 40 mg DAILY EDI Administration Simple Syrup 15 ml 10/24/19 11:54 Simple Syrup FEEDTUBE PRN PRN Hypoglycemia Simple Syrup 30 ml 10/24/19 11:54 Simple Syrup FEEDTUBE PRN PRN Hypoglycemia Sodium Bicarbonate 325 mg 10/24/19 11:54 Sodium Bicarbonate FEEDTUBE PRN PRN For Clogged Feeding Tube Sodium Chloride 10 ml 10/18/19 10:00 10/24/19 11:31 Sodium Chloride Flush Syringe 10 Ml IV 10 ml BID EDI Administration Sodium Chloride 10 ml 10/17/19 22:47 Sodium Chloride Flush Syringe 10 Ml IV PRN PRN LINE FLUSH Nutrition/Malnutrition Assess - Dietary Evaluation Nutrition/Malnutrition Findings: Nutrition Notes Start: 10/19/19 13 :20 Freq: Status: Active Protocol: Document 10/24/19 07:52 LM (Rec: 10/24/19 08:06 LM [id number]) Nutrition Notes Need for Assessment generated from: MD Order Initial or Follow up Reassessment Current Diagnosis Hypertension,Respiratory Failure Other Pertinent Diagnosis Influlenza A pneumonia, lymphedema, pulmonary edema, SOB, DVT Current Diet Cardiac Labs/Tests Na 136 BUN 19 BG 125 Pertinent Medications Lasix Solumedrol Propofol (210 kcal) Height 5 ft 6 in Weight 265 kg [place] Body Weight (kg) 59.09 BMI 94.3 Subjective/Other Information MD consult for TF/ evaluate nutritional intake. Already following pt. Pt intubated 10/23 . Burn Absent Trauma Absent Current % PO Negligible Minimum of two criteria No #2 Nutrition Diagnosis Inadequate oral intake Etiology Mechanical vent As Evidenced by Signs and Symptoms Pt unable to consume PO Diagnosis Progress(for reassessment Worsened documentation) #1 Nutrition Diagnosis Food and nutrition-related knowledge deficit Diagnosis Progress(for reassessment Resolved documentation) Is patient on ventilator? Yes Is Patient Ambulatory and/or Out of Bed No REE-([facility]-confined to bed) 3957.528 Kcal/Kg value to use for calculation 7 Approximate Energy Requirements Using 1855 kcal/Kg Calculation Used for Recommendations Kcal/kg Additional Notes Protein needs: 148g (up to 2. 5g/kg IBW 59 kg) Fluid: 1 ml/kcal Nutrition Intervention Change Diet Order: TF Nutrition Support: Vital AF 1.2 at 65 ml/hr Flush 50 ml q4h for hyponatremia Flush 100 ml q4h once hyponatremia resolves Kcal 1,872 Protein (gm) 117 Fluid (mL) 1,265 Goal #1 TF start/tolerance Anticipated Discharge Needs: unable to determine at this time Follow-Up By: 10/26/19 Additional Comments F/U for TF start/tolerance
[2019-10-25] MEDS: fentaNYL DRIP Premix 2,000 MCG/100 ML BAG IV SCH ×7 (00:17→18:22)
[2019-10-25] MEDS: PROPOFOL 1,000 MG/100 ML BOTTLE IV SCH ×9 (02:27→22:45)
--- NOTE | 2019-10-25 02:45 | XRay Report ---
CHEST 1 VIEW, 10/25/2019 1:52 AM CLINICAL INFORMATION/INDICATION: Respiratory failure. COMPARISON: Chest radiograph, 10/24/2019 at 2:36 AM FINDINGS: SUPPORT DEVICES: The endotracheal tube remains in stable position. HEART: The cardiac silhouette is not well visualized secondary to lung disease. LUNGS/PLEURA: Faint bilateral pulmonary opacities do not appear significantly changed. No pneumothora x is identified. ADDITIONAL FINDINGS: No additional acute findings. IMPRESSION: 1. Stable appearance of the chest. Signer Name: Kacie Willard MD Signed: 10/25/2019 2:40 AM Workstation Name: [id number]
[2019-10-25] MEDS: FUROSEMIDE 40 MG/4 ML INJ IV SCH ×2 (05:50→17:13)
[2019-10-25] MEDS: HEPARIN 5,000 UNIT/1 ML VIAL SUB-Q SCH ×3 (05:50→21:00)
[2019-10-25] MEDS: methylPREDNISolone Sod Succinate 40 MG/1 ML INJ IV SCH ×2 (05:53→13:20)
[2019-10-25] MEDS: CEFEPIME/NS 2 GM/100 ML 2 GM/100 ML BAG IV SCH ×3 (05:55→20:40)
[2019-10-25] MEDS: OSELTAMIVIR 75 MG CAP PO SCH ×3 (05:55→17:13)
[2019-10-25 06:44] LABS: Hematocrit 31.9 % (30.3-42.9); Mean Corpuscular HGB Conc 31 % (30-34); Mean Corpuscular Volume 79 fl (79-97); Platelet Count 335 K/mm3 (140-440); Red Blood Count 4.01 M/mm3 (3.65-5.03)
[2019-10-25 07:09] LABS: BUN/Creatinine Ratio 46; Blood Urea Nitrogen 23 mg/dL (7-17); Calcium 8.6 mg/dL (8.4-10.2); Hemolysis Index 0
[2019-10-25] MEDS: IPRATROPIUM/ALBUTEROL SULFATE 3 ML AMPUL.NEB IH SCH ×3 (09:04→19:35)
[2019-10-25] MEDS: PANTOPRAZOLE 40 MG TAB PO SCH (09:31)
--- NOTE | 2019-10-25 11:28 | Progress Note ---
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 Goal is to start SBT in the next 48-72 hours. Nutritional support -VAP bundle addresed- no leak in ETT -Aspiration precautions, HOB>40 degrees -Wean FIO2 for O2 sats 88-90%. Once FIO2 to down to 50% with adequate oxygenation, will start weaning PEEP -Daily assessment for readiness to wean -Oxygen restrictive strategies -Titrate sedation to RASS -1 - Anti-virals for Influenza infection-ID following, added Cefepime to therapy -Bronchodilators per protocol -Start tube feedings via the small bowel feeding tube -Continue airborne isolation -Continue with VTE prophylaxis -Continue stress ulcer prophylaxis - Continue with Accuchecks with glycemic control for SSI (While critically ill target blood glucose of 140-180 mg/dL; avoid hypoglycemia) - Continue mobility protocol for pressure ulcer prevention - Continue to monitor hemodynamics closely - Continue to monitor electrolyte profile closely and replete as indicated -Chronic home medications, resume as clinically indicated - Continue with diuresis while monitoring renal function -Blanchard catheter in this critically ill patient, with poor urine output, requiring accurate intake and output monitoring. She acutely de-saturates with minimal movement -PT/OT -Weight loss and life style modifications on discharge. May need surgical bariatric intervention( discussed this with her and her sister- patient currently does not have health insurance but has applied) -Out patient evaluation for sleep apnea Discussed with RT and RN Updated her sister who was at the bedside CONDITION: CRITICAL PROGNOSIS: GUARDED CODE STATUS: FULL CODE The high probability of a clinically significant, sudden or life-threatening deterioration of the [respiratory, cardiovascular,] system(s) required my full and direct attention, intervention and personal management. The aggregate critical care time was [35] minutes without overlap. Time includes spent on; [x] Data Review and interpretation [x] Patient assessment and monitoring of vital signs [x] Documentation [x] Medication orders and management Subjective Date of service: 10/25/19 Principal diagnosis: acute respiratory distress Interval history: Patient is seen today for: acute hypoxic-hypercapnic respiratory failure on MVS; influenza infection; extreme obesity with probable DEAN Seen and examined at bedside; 24hour events reviewed; nursing and respiratory care staff consulted; no adverse overnight events reported to me; Intubated yesterday for increasing FIO2 requirements, had been on continuous BIPAP without improvement; No fevers, no diarrhea, no vomiting. Patient is on MVS, ETT in place to MVS FIO2 45%, PEEP 14- airway pressures are within normal. On fentanyl and propofol- comfortable Left radial arterial line, RUExt midline, Blanchard catheter Vitals, labs, medications, chart and imaging reviewed. Discussed with RT and RN Updated her sisters who were are the bedside Objective Vital Signs - 12hr 10/24/19 10/24/19 10/24/19 23:31 23:35 23:45 Temperature Pulse Rate 108 H 105 H 107 H Pulse Rate [ Anterior Bilateral Throughout] Pulse Rate [ From Monitor] Respiratory 18 26 H Rate Respiratory Rate [Anterior Bilateral Throughout] Blood Pressure 144/82 123/60 144/82 O2 Sat by Pulse 95 95 95 Oximetry 10/25/19 10/25/19 10/25/19 00:00 00:15 00:31 Temperature Pulse Rate 116 H 104 H 105 H Pulse Rate [ Anterior Bilateral Throughout] Pulse Rate [ 110 H From Monitor] Respiratory 21 28 H 29 H Rate Respiratory Rate [Anterior Bilateral Throughout] Blood Pressure 144/82 144/82 144/82 O2 Sat by Pulse 96 93 95 Oximetry 10/25/19 10/25/19 10/25/19 00:45 01:01 01:15 Temperature Pulse Rate 102 H 100 H 103 H Pulse Rate [ Anterior Bilateral Throughout] Pulse Rate [ From Monitor] Respiratory 28 H 28 H 29 H Rate Respiratory Rate [Anterior Bilateral Throughout] Blood Pressure 144/82 144/82 144/82 O2 Sat by Pulse 95 96 95 Oximetry 10/25/19 10/25/19 10/25/19 01:31 01:45 02:01 Temperature Pulse Rate 101 H 105 H 102 H Pulse Rate [ Anterior Bilateral Throughout] Pulse Rate [ From Monitor] Respiratory 29 H 30 H 28 H Rate Respiratory Rate [Anterior Bilateral Throughout] Blood Pressure 144/82 144/82 144/82 O2 Sat by Pulse 96 96 95 Oximetry 10/25/19 10/25/19 10/25/19 02:15 02:31 02:45 Temperature Pulse Rate 102 H 123 H 113 H Pulse Rate [ Anterior Bilateral Throughout] Pulse Rate [ From Monitor] Respiratory 26 H 11 L 25 H Rate Respiratory Rate [Anterior Bilateral Throughout] Blood Pressure 144/82 144/82 144/82 O2 Sat by Pulse 95 97 90 Oximetry 10/25/19 10/25/19 10/25/19 03:01 03:15 03:27 Temperature 99.4 F Pulse Rate 113 H 101 H Pulse Rate [ Anterior Bilateral Throughout] Pulse Rate [ From Monitor] Respiratory 16 28 H Rate Respiratory Rate [Anterior Bilateral Throughout] Blood Pressure 144/82 144/82 O2 Sat by Pulse 97 97 Oximetry 10/25/19 10/25/19 10/25/19 03:31 03:45 04:00 Temperature Pulse Rate 101 H 102 H 100 H Pulse Rate [ Anterior Bilateral Throughout] Pulse Rate [ 100 H From Monitor] Respiratory 28 H 28 H Rate Respiratory Rate [Anterior Bilateral Throughout] Blood Pressure 144/82 144/82 O2 Sat by Pulse 96 95 95 Oximetry 10/25/19 10/25/19 10/25/19 04:01 04:15 04:20 Temperature Pulse Rate 105 H 103 H 103 H Pulse Rate [ Anterior Bilateral Throughout] Pulse Rate [ From Monitor] Respiratory 27 H 28 H Rate Respiratory Rate [Anterior Bilateral Throughout] Blood Pressure 144/82 144/82 126/65 O2 Sat by Pulse 96 94 96 Oximetry 10/25/19 10/25/19 10/25/19 04:31 04:45 05:01 Temperature Pulse Rate 100 H 102 H 103 H Pulse Rate [ Anterior Bilateral Throughout] Pulse Rate [ From Monitor] Respiratory 28 H 28 H 26 H Rate Respiratory Rate [Anterior Bilateral Throughout] Blood Pressure 144/82 144/82 144/82 O2 Sat by Pulse 95 94 96 Oximetry 10/25/19 10/25/19 10/25/19 05:15 05:31 05:45 Temperature Pulse Rate 101 H 119 H 105 H Pulse Rate [ Anterior Bilateral Throughout] Pulse Rate [ From Monitor] Respiratory 29 H 16 29 H Rate Respiratory Rate [Anterior Bilateral Throughout] Blood Pressure 144/82 144/82 144/82 O2 Sat by Pulse 96 Oximetry 10/25/19 10/25/19 10/25/19 06:01 06:15 06:31 Temperature Pulse Rate 112 H 116 H 99 H Pulse Rate [ Anterior Bilateral Throughout] Pulse Rate [ From Monitor] Respiratory 21 22 Rate Respiratory Rate [Anterior Bilateral Throughout] Blood Pressure 144/82 144/82 144/82 O2 Sat by Pulse 92 98 Oximetry 01/05/20 01/05/20 01/05/20 06:45 07:01 07:15 Temperature Pulse Rate 103 H 113 H 104 H Pulse Rate [ Anterior Bilateral Throughout] Pulse Rate [ From Monitor] Respiratory 28 H 27 H 26 H Rate Respiratory Rate [Anterior Bilateral Throughout] Blood Pressure 144/82 144/82 144/82 O2 Sat by Pulse 96 96 96 Oximetry 10/25/19 10/25/19 10/25/19 07:31 07:45 08:00 Temperature 100.1 F H Pulse Rate 106 H 116 H 101 H Pulse Rate [ Anterior Bilateral Throughout] Pulse Rate [ 101 H From Monitor] Respiratory 28 H 22 28 H Rate Respiratory Rate [Anterior Bilateral Throughout] Blood Pressure 144/82 144/82 O2 Sat by Pulse 96 97 96 Oximetry 10/25/19 10/25/19 10/25/19 08:01 08:15 08:31 Temperature Pulse Rate 105 H 102 H 102 H Pulse Rate [ Anterior Bilateral Throughout] Pulse Rate [ From Monitor] Respiratory 28 H 28 H 28 H Rate Respiratory Rate [Anterior Bilateral Throughout] Blood Pressure 144/82 144/82 144/82 O2 Sat by Pulse 94 95 97 Oximetry 10/25/19 10/25/19 10/25/19 08:45 08:59 09:01 Temperature Pulse Rate 110 H 109 H 108 H Pulse Rate [ Anterior Bilateral Throughout] Pulse Rate [ From Monitor] Respiratory 25 H 29 H Rate Respiratory Rate [Anterior Bilateral Throughout] Blood Pressure 144/82 126/66 144/82 O2 Sat by Pulse 96 93 93 Oximetry 10/25/19 10/25/19 10/25/19 09:15 09:17 09:31 Temperature Pulse Rate 109 H 104 H Pulse Rate [ 108 H Anterior Bilateral Throughout] Pulse Rate [ From Monitor] Respiratory 28 H 28 H Rate Respiratory 28 H Rate [Anterior Bilateral Throughout] Blood Pressure 144/82 144/82 O2 Sat by Pulse 95 93 Oximetry 10/25/19 10/25/19 09:45 10:01 Temperature Pulse Rate 105 H 102 H Pulse Rate [ Anterior Bilateral Throughout] Pulse Rate [ From Monitor] Respiratory 28 H 28 H Rate Respiratory Rate [Anterior Bilateral Throughout] Blood Pressure 144/82 144/82 O2 Sat by Pulse 92 94 Oximetry Constitutional: alert, other (nods appropriately to questions, ETT at 24cm, no leak) Eyes: non-icteric ENT: oropharynx moist, other (small bowel feeding tube in nares) Neck: supple, no lymphadenopathy, no JVD, other (short neck, large circunference) Effort: normal Ascultation: Bilateral: diminished breath sounds Cardiovascular: regular rate and rhythm, other (S1,S2) Gastrointestinal: normoactive bowel sounds, soft, non-tender, non-distended Integumentary: normal Extremities: no cyanosis, no edema, pink and warm, pulses normal Neurologic: non-focal exam, pupils equal and round Psychiatric: mood appropriate, affect normal, other CBC and BMP: 10/26/19 05:20 10/26/19 05:20 ABG, PT/INR, D-dimer: ABG POC ABG pH 7.454 (7.35-7.45) H 10/25/19 04:20 ABG pH 7.520 pH Units (7.350-7.450) H 10/22/19 00:35 POC ABG pCO2 63.5 (35-45) H 10/25/19 04:20 ABG pCO2 46.1 mm Hg 10/22/19 00:35 POC ABG pO2 91 (80-105) 10/25/19 04:20 ABG pO2 64.4 mm Hg (80.0-90.0) L 10/22/19 00:35 POC ABG HCO3 44.6 (22-26 mml/L) 10/25/19 04:20 POC ABG Total CO2 46 (23-27mmol/L) 10/25/19 04:20 POC ABG O2 Sat 97 10/25/19 04:20 ABG O2 Saturation 97.0 % (95.0-99.0) 10/22/19 00:35 Abnormal lab findings: Abnormal Labs 10/17/19 10/17/19 10/17/19 20:57 20:57 Unknown WBC 4.0 L Hgb MCV 78 L MCH 25 L RDW 24.7 H Lymph % (Auto) [place] % (Auto) Lymph # Seg Neutrophils % Seg Neuts % (Manual) 77.0 H Monocytes % (Manual) 9.0 H Lymphocytes # (Manual) 0.6 L POC ABG pH ABG pH POC ABG pCO2 POC ABG pO2 ABG pO2 ABG HCO3 ABG Base Excess ABG Hemoglobin Sodium Potassium 3.5 L Chloride Carbon Dioxide BUN Creatinine 0.6 L Glucose 147 H POC Glucose Calcium 7.9 L AST 57 H Total Creatine Kinase 857 H Albumin 3.0 L Influenza A (Rapid) Positive A 10/18/19 10/18/19 10/18/19 05:21 05:21 09:19 WBC 3.3 L Hgb MCV MCH 25 L RDW 24.3 H Lymph % (Auto) 12.5 L [place] % (Auto) 7.9 H Lymph # 0.4 L Seg Neutrophils % 78.6 H Seg Neuts % (Manual) Monocytes % (Manual) Lymphocytes # (Manual) POC ABG pH ABG pH POC ABG pCO2 POC ABG pO2 ABG pO2 131.3 H ABG HCO3 30.2 H ABG Base Excess 4.5 H ABG Hemoglobin 10.7 L Sodium Potassium Chloride Carbon Dioxide BUN Creatinine Glucose 167 H POC Glucose Calcium 8.3 L AST Total Creatine Kinase Albumin Influenza A (Rapid) 10/18/19 10/18/19 10/19/19 11:28 18:27 06:39 WBC Hgb MCV MCH RDW Lymph % (Auto) [place] % (Auto) Lymph # Seg Neutrophils % Seg Neuts % (Manual) Monocytes % (Manual) Lymphocytes # (Manual) POC ABG pH 7.461 H 7.487 H ABG pH POC ABG pCO2 53.4 H 52.8 H 51.7 H POC ABG pO2 70 L 71 L ABG pO2 ABG HCO3 ABG Base Excess ABG Hemoglobin Sodium Potassium Chloride Carbon Dioxide BUN Creatinine Glucose POC Glucose Calcium AST Total Creatine Kinase Albumin Influenza A (Rapid) 10/19/19 10/20/19 10/20/19 23:25 05:31 09:08 WBC Hgb MCV MCH RDW Lymph % (Auto) [place] % (Auto) Lymph # Seg Neutrophils % Seg Neuts % (Manual) Monocytes % (Manual) Lymphocytes # (Manual) POC ABG pH ABG pH POC ABG pCO2 POC ABG pO2 ABG pO2 ABG HCO3 ABG Base Excess ABG Hemoglobin Sodium Potassium Chloride Carbon Dioxide BUN Creatinine Glucose POC Glucose 203 H 144 H 163 H Calcium AST Total Creatine Kinase Albumin Influenza A (Rapid) 10/20/19 10/20/19 10/20/19 10:25 13:22 14:51 WBC Hgb MCV MCH RDW Lymph % (Auto) [place] % (Auto) Lymph # Seg Neutrophils % Seg Neuts % (Manual) Monocytes % (Manual) Lymphocytes # (Manual) POC ABG pH 7.632 H ABG pH POC ABG pCO2 POC ABG pO2 74 L ABG pO2 ABG HCO3 ABG Base Excess ABG Hemoglobin Sodium 147 H Potassium Chloride Carbon Dioxide 31 H BUN Creatinine 0.5 L Glucose 154 H POC Glucose 178 H Calcium 8.2 L AST Total Creatine Kinase Albumin Influenza A (Rapid) 10/20/19 10/20/19 10/20/19 14:51 17:16 21:30 WBC 11.2 H Hgb MCV 78 L MCH 25 L RDW 23.9 H Lymph % (Auto) [place] % (Auto) Lymph # Seg Neutrophils % Seg Neuts % (Manual) Monocytes % (Manual) Lymphocytes # (Manual) POC ABG pH ABG pH POC ABG pCO2 POC ABG pO2 ABG pO2 ABG HCO3 ABG Base Excess ABG Hemoglobin Sodium Potassium Chloride Carbon Dioxide BUN Creatinine Glucose POC Glucose 143 H 152 H Calcium AST Total Creatine Kinase Albumin Influenza A (Rapid) 10/20/19 10/21/19 10/21/19 22:52 05:55 08:27 WBC Hgb MCV MCH RDW Lymph % (Auto) [place] % (Auto) Lymph # Seg Neutrophils % Seg Neuts % (Manual) Monocytes % (Manual) Lymphocytes # (Manual) POC ABG pH ABG pH POC ABG pCO2 POC ABG pO2 ABG pO2 ABG HCO3 ABG Base Excess ABG Hemoglobin Sodium Potassium Chloride Carbon Dioxide BUN Creatinine Glucose POC Glucose 179 H 115 H 131 H Calcium AST Total Creatine Kinase Albumin Influenza A (Rapid) 10/21/19 10/21/19 10/21/19 11:52 16:23 23:38 WBC Hgb MCV MCH RDW Lymph % (Auto) [place] % (Auto) Lymph # Seg Neutrophils % Seg Neuts % (Manual) Monocytes % (Manual) Lymphocytes # (Manual) POC ABG pH ABG pH POC ABG pCO2 POC ABG pO2 ABG pO2 ABG HCO3 ABG Base Excess ABG Hemoglobin Sodium Potassium Chloride Carbon Dioxide BUN Creatinine Glucose POC Glucose 122 H 120 H 115 H Calcium AST Total Creatine Kinase Albumin Influenza A (Rapid) 10/22/19 10/22/19 10/22/19 00:35 05:19 06:10 WBC Hgb MCV MCH 25 L RDW 22.8 H Lymph % (Auto) [place] % (Auto) Lymph # Seg Neutrophils % Seg Neuts % (Manual) Monocytes % (Manual) Lymphocytes # (Manual) POC ABG pH ABG pH 7.520 H POC ABG pCO2 POC ABG pO2 ABG pO2 64.4 L ABG HCO3 36.8 H ABG Base Excess 12.6 H ABG Hemoglobin 10.4 L Sodium Potassium Chloride Carbon Dioxide BUN Creatinine Glucose POC Glucose 108 H Calcium AST Total Creatine Kinase Albumin Influenza A (Rapid) 10/22/19 10/24/19 10/25/19 15:40 05:49 04:20 WBC Hgb MCV MCH RDW Lymph % (Auto) [place] % (Auto) Lymph # Seg Neutrophils % Seg Neuts % (Manual) Monocytes % (Manual) Lymphocytes # (Manual) POC ABG pH 7.454 H ABG pH POC ABG pCO2 64.1 H 63.5 H POC ABG pO2 73 L ABG pO2 ABG HCO3 ABG Base Excess ABG Hemoglobin Sodium 136 L D Potassium Chloride 97.6 L Carbon Dioxide BUN 19 H Creatinine Glucose 125 H POC Glucose Calcium AST Total Creatine Kinase Albumin Influenza A (Rapid) 10/25/19 10/25/19 05:35 05:35 WBC Hgb 10.0 L MCV MCH 25 L RDW 22.0 H Lymph % (Auto) [place] % (Auto) Lymph # Seg Neutrophils % Seg Neuts % (Manual) Monocytes % (Manual) Lymphocytes # (Manual) POC ABG pH ABG pH POC ABG pCO2 POC ABG pO2 ABG pO2 ABG HCO3 ABG Base Excess ABG Hemoglobin Sodium 147 H D Potassium Chloride Carbon Dioxide 34 H D BUN 23 H Creatinine 0.5 L Glucose 184 H POC Glucose Calcium AST Total Creatine Kinase Albumin Influenza A (Rapid) Chest x-ray: image reviewed Allied health notes reviewed: RT
[2019-10-25] MEDS: LIP THERAPY VASELINE TP PRN (11:45)
--- NOTE | 2019-10-25 15:46 | Progress Note ---
Assessment and Plan Assessment and plan: Patient is a 49 yo woman with a history of severe obesity BMI 93.6 (579 lbs), hypertension, lymphedema, functional quadriplegia and DEAN non compliant with CPAP who presents to [facility] ED with SOB and found to be hypoxic with pulse ox in the 50s. She was treated with BIPAP up until 10/23/2019 around 5pm when she was intubated by Anesthesia using guidescope. Trach aspirate growing GNR and iv zosyn started then switched to Cefepime by ID. * pCXR shows Probable congestive heart failure * TTE Conclusions: The left ventricular size is mildly dilated, mild to moderate concentric LVH, est EF 40-45%, left atrium is mildly dilated, trace MR, mild TR, mild to moderate Pulmonary hypertension, RVSP is calculated at 42 mmHG Acute hypoxic respiratory failure, failed BIPAP, intubated 10/23/2019: 40% on PEEP 14, try to wean as possible, CCM/pulm following Sepsis Pneumonia due to Influenza A: treatment with Tamiflu, ID following Acute diastolic heart failure suspected: treated with iv lasix BID, consulted Cardiology, input noted Bronchospasm: added duonebs around the clock and ordered a dose of iv Solumedrol, consulted Pulm/CCM Extreme Obesity, BMI re-calculated to 94.3: supportive care, consulted Dancing Master Suspected Obesity Hypoventilation syndrome DVT ppx sq heparin full code History Interval history: Patient was seen and examined. Follow-up on current diagnosis of respiratory failure, influenza pna. Overnight uneventful as no events directly reported to me. Intubated and sedated. Imaging, nursing note, chart, labs and old chart reviewed. Hospitalist Physical - Physical exam Narrative exam: Gen: ill appearing, bmi 93.6 Awake, Alert, Orientated HEENT: NCAT, EOMI, PERRL, OP Clear Neck: supple, no adenopathy, no thyromegaly, equiv JVD CVS/Heart: Regular tachycardiac, normal S1S2, pulses present bilaterally Chest/Lungs: tachypneic, diminished bs bilateral with wheezing, Symmetrical chest expansion, good air entry bilaterally GI/Abdomen: soft, NTND, good bowel sounds, no guarding or rebound /Bladder: no suprapubic tenderness, no CVA or paraspinal tenderness Extermity/Skin: ble edema improved MSK: FROM x 4 Neuro: CN 2-12 grossly intact, no new focal deficits Psych: calm - Constitutional Vitals: Temp Pulse Resp BP Pulse Ox 100.7 F H 102 H 28 H 144/82 94 10/25/19 12:00 10/25/19 15:15 10/25/19 15:15 10/25/19 15:15 10/25/19 15:15 General appearance: Present: obese. Absent: mild distress Results - Labs CBC & Chem 7: 10/25/19 05:35 10/25/19 05:35 Labs: Laboratory Last Values WBC 10.3 K/mm3 (4.5-11.0) 10/25/19 05:35 RBC 4.01 M/mm3 (3.65-5.03) 10/25/19 05:35 Hgb 10.0 gm/dl (10.1-14.3) L 10/25/19 05:35 Hct 31.9 % (30.3-42.9) 10/25/19 05:35 MCV 79 fl (79-97) 10/25/19 05:35 MCH 25 pg (28-32) L 10/25/19 05:35 MCHC 31 % (30-34) 10/25/19 05:35 RDW 22.0 % (13.2-15.2) H 10/25/19 05:35 Plt Count 335 K/mm3 (140-440) 10/25/19 05:35 Lymph % (Auto) 12.5 % (13.4-35.0) L 10/18/19 05:21 Talbot % (Auto) 7.9 % (0.0-7.3) H 10/18/19 05:21 Eos % (Auto) 0.0 % (0.0-4.3) 10/18/19 05:21 Baso % (Auto) 1.0 % (0.0-1.8) 10/18/19 05:21 Lymph # 0.4 K/mm3 (1.2-5.4) L 10/18/19 05:21 Talbot # 0.3 K/mm3 (0.0-0.8) 10/18/19 05:21 Eos # 0.0 K/mm3 (0.0-0.4) 10/18/19 05:21 Baso # 0.0 K/mm3 (0.0-0.1) 10/18/19 05:21 Add Manual Diff Complete 10/17/19 20:57 Total Counted 100 10/17/19 20:57 Seg Neutrophils % 78.6 % (40.0-70.0) H 10/18/19 05:21 Seg Neuts % (Manual) 77.0 % (40.0-70.0) H 10/17/19 20:57 Band Neutrophils % 0 % 10/17/19 20:57 Lymphocytes % (Manual) 14.0 % (13.4-35.0) 10/17/19 20:57 Reactive Lymphs % (Man) 0 % 10/17/19 20:57 Monocytes % (Manual) 9.0 % (0.0-7.3) H 10/17/19 20:57 Eosinophils % (Manual) 0 % (0.0-4.3) 10/17/19 20:57 Basophils % (Manual) 0 % (0.0-1.8) 10/17/19 20:57 Metamyelocytes % 0 % 10/17/19 20:57 Myelocytes % 0 % 10/17/19 20:57 Promyelocytes % 0 % 10/17/19 20:57 Blast Cells % 0 % 10/17/19 20:57 Nucleated RBC % Not Reportable 10/17/19 20:57 Seg Neutrophils # 2.6 K/mm3 (1.8-7.7) 10/18/19 05:21 Seg Neutrophils # Man 3.1 K/mm3 (1.8-7.7) 10/17/19 20:57 Band Neutrophils # 0.0 K/mm3 10/17/19 20:57 Lymphocytes # (Manual) 0.6 K/mm3 (1.2-5.4) L 10/17/19 20:57 Abs React Lymphs (Man) 0.0 K/mm3 10/17/19 20:57 Monocytes # (Manual) 0.4 K/mm3 (0.0-0.8) 10/17/19 20:57 Eosinophils # (Manual) 0.0 K/mm3 (0.0-0.4) 10/17/19 20:57 Basophils # (Manual) 0.0 K/mm3 (0.0-0.1) 10/17/19 20:57 Metamyelocytes # 0.0 K/mm3 10/17/19 20:57 Myelocytes # 0.0 K/mm3 10/17/19 20:57 Promyelocytes # 0.0 K/mm3 10/17/19 20:57 Blast Cells # 0.0 K/mm3 10/17/19 20:57 WBC Morphology Not Reportable 10/17/19 20:57 Hypersegmented Neuts Not Reportable 10/17/19 20:57 Hyposegmented Neuts Not Reportable 10/17/19 20:57 Hypogranular Neuts Not Reportable 10/17/19 20:57 Smudge Cells Not Reportable 10/17/19 20:57 Toxic Granulation Not Reportable 10/17/19 20:57 Toxic Vacuolation Not Reportable 10/17/19 20:57 Dohle Bodies Not Reportable 10/17/19 20:57 Pelger-Huet Anomaly Not Reportable 10/17/19 20:57 Krista Rods Not Reportable 10/17/19 20:57 Platelet Estimate Not Reportable 10/17/19 20:57 Clumped Platelets Not Reportable 10/17/19 20:57 Plt Clumps, EDTA Not Reportable 10/17/19 20:57 Large Platelets Not Reportable 10/17/19 20:57 Giant Platelets Not Reportable 10/17/19 20:57 Platelet Satelliting Not Reportable 10/17/19 20:57 Plt Morphology Comment Not Reportable 10/17/19 20:57 RBC Morphology Not Reportable 10/17/19 20:57 Dimorphic RBCs Not Reportable 10/17/19 20:57 Polychromasia Not Reportable 10/17/19 20:57 Hypochromasia 1+ 10/17/19 20:57 Poikilocytosis Not Reportable 10/17/19 20:57 Anisocytosis 2+ 10/17/19 20:57 Microcytosis Not Reportable 10/17/19 20:57 Macrocytosis Not Reportable 10/17/19 20:57 Spherocytes Not Reportable 10/17/19 20:57 Pappenheimer Bodies Not Reportable 10/17/19 20:57 Sickle Cells Not Reportable 10/17/19 20:57 Target Cells Not Reportable 10/17/19 20:57 Tear Drop Cells Not Reportable 10/17/19 20:57 Ovalocytes Not Reportable 10/17/19 20:57 Helmet Cells Not Reportable 10/17/19 20:57 Gallagher-Forman Bodies Not Reportable 10/17/19 20:57 [employer] Rings Not Reportable 10/17/19 20:57 James Cells Not Reportable 10/17/19 20:57 Bite Cells Not Reportable 10/17/19 20:57 Crenated Cell Not Reportable 10/17/19 20:57 Elliptocytes Not Reportable 10/17/19 20:57 Acanthocytes (Spur) Not Reportable 10/17/19 20:57 Rouleaux Not Reportable 10/17/19 20:57 Hemoglobin C Crystals Not Reportable 10/17/19 20:57 Schistocytes Not Reportable 10/17/19 20:57 Malaria parasites Not Reportable 10/17/19 20:57 Alejandro Bodies Not Reportable 10/17/19 20:57 Hem Pathologist Commnt No 10/17/19 20:57 POC ABG pH 7.454 (7.35-7.45) H 10/25/19 04:20 ABG pH 7.520 pH Units (7.350-7.450) H 10/22/19 00:35 POC ABG pCO2 63.5 (35-45) H 10/25/19 04:20 ABG pCO2 46.1 mm Hg 10/22/19 00:35 POC ABG pO2 91 (80-105) 10/25/19 04:20 ABG pO2 64.4 mm Hg (80.0-90.0) L 10/22/19 00:35 POC ABG HCO3 44.6 (22-26 mml/L) 10/25/19 04:20 ABG HCO3 36.8 mmol/L (20.0-26.0) H 10/22/19 00:35 POC ABG Total CO2 46 (23-27mmol/L) 10/25/19 04:20 POC ABG O2 Sat 97 10/25/19 04:20 ABG O2 Saturation 97.0 % (95.0-99.0) 10/22/19 00:35 ABG O2 Content 13.9 (0.0-44) 10/22/19 00:35 POC ABG Base Excess 21 ((-2) - (+3)mmol/L) 10/25/19 04:20 ABG Base Excess 12.6 mmol/L (-2.0-3.0) H 10/22/19 00:35 ABG Hemoglobin 10.4 gm/dl (12.0-16.0) L 10/22/19 00:35 ABG Carboxyhemoglobin 1.6 % (0.0-5.0) 10/22/19 00:35 ABG Methemoglobin 0.5 % (0.0-1.5) 10/22/19 00:35 Oxyhemoglobin 95.0 % (95.0-99.0) 10/22/19 00:35 FiO2 50 % 10/25/19 04:20 Sodium 147 mmol/L (137-145) H D 10/25/19 05:35 Potassium 3.6 mmol/L (3.6-5.0) 10/25/19 05:35 Chloride 98.5 mmol/L (98-107) 10/25/19 05:35 Carbon Dioxide 34 mmol/L (22-30) H D 10/25/19 05:35 Anion Gap 18 mmol/L 10/25/19 05:35 BUN 23 mg/dL (7-17) H 10/25/19 05:35 Creatinine 0.5 mg/dL (0.7-1.2) L 10/25/19 05:35 Estimated GFR > 60 ml/min 10/25/19 05:35 BUN/Creatinine Ratio 46 % 10/25/19 05:35 Glucose 184 mg/dL (65-100) H 10/25/19 05:35 POC Glucose 108 (70-105) H 10/22/19 05:19 Calcium 8.6 mg/dL (8.4-10.2) 10/25/19 05:35 Total Bilirubin 0.20 mg/dL (0.1-1.2) 10/17/19 20:57 AST 57 units/L (5-40) H 10/17/19 20:57 ALT 22 units/L (7-56) 10/17/19 20:57 Alkaline Phosphatase 67 units/L (35-129) 10/17/19 20:57 Total Creatine Kinase 857 units/L (30-135) H 10/17/19 20:57 CK-MB (CK-2) 2.6 ng/mL (0.0-4.0) 10/17/19 20:57 CK-MB (CK-2) Rel Index 0.3 (0-4) 10/17/19 20:57 Troponin T < 0.010 ng/mL (0.00-0.029) 10/17/19 20:57 NT-Pro-B Natriuret Pep 317.6 pg/mL (0-450) 10/17/19 20:57 Total Protein 7.1 g/dL (6.3-8.2) 10/17/19 20:57 Albumin 3.0 g/dL (3.9-5) L 10/17/19 20:57 Albumin/Globulin Ratio 0.7 % 10/17/19 20:57 Procalcitonin 0.06 ng/mL (<0.15) 10/20/19 14:51 Influenza A (Rapid) Positive (Negative) A 10/17/19 Unknown Influenza B (Rapid) Negative (Negative) 10/17/19 Unknown Active Medications - Current Medications Current Medications: Generic Name Dose Route Start Last Admin Trade Name Freq PRN Reason Stop Dose Admin Albuterol 2.5 mg 10/17/19 22:47 10/19/19 14:34 Proventil IH 2.5 mg Q3HRT PRN Administration Shortness Of Breath Albuterol/Ipratropium 1 ampul 10/19/19 20:00 10/25/19 14:03 Duoneb *Not For Prn Use* IH 1 ampul TIDRT EDI Administration Lipase/Protease/Amylase 1 each 10/24/19 11:54 Pancreaze 10,500 Unit FEEDTUBE PRN PRN For Clogged Feeding Tube Fentanyl 50 mcg 10/23/19 17:29 Sublimaze IV Q10MIN PRN ANALGESIA Furosemide 40 mg 10/18/19 06:00 10/25/19 05:50 Lasix IV 40 mg BID@0600,1800 EDI Administration Heparin Sodium (Porcine) 5,000 unit 10/18/19 06:00 10/25/19 13:19 Heparin SUB-Q 5,000 unit Q8HR EDI Administration Hydrophilic Ointment 1 applic 10/23/19 17:29 10/25/19 11:45 Vaseline Lip Therapy TP 1 applic Q2HR PRN Administration Dry Lips Fentanyl Citrate 2,000 mcg in 100 mls @ 13.25 mls/hr 10/23/19 18:00 10/25/19 14:40 Fentanyl Drip Premix IV 2 mcg/kg/hr TITR EDI 26.5 mls/hr Administration Protocol 1 MCG/KG/HR Propofol 1,000 mg in 100 mls @ 7.95 mls/hr 10/23/19 18:00 10/25/19 13:49 Diprivan 10 Mg/Ml IV 30 mcg/kg/min TITR EDI 47.7 mls/hr Administration Protocol 5 MCG/KG/MIN Cefepime HCl 2 gm in 100 mls @ 200 mls/hr 10/24/19 13:00 10/25/19 13:19 Cefepime/Ns 2 Gm/100 Ml IV 200 mls/hr Q8H EDI Administration Protocol Labetalol HCl 10 mg 10/24/19 14:32 Labetalol IV Q4H PRN Blood Pressure Lorazepam 1 mg 10/17/19 20:39 10/23/19 10:56 Ativan IV 1 mg ONCE PRN Administration Anxiety Morphine Sulfate 2 mg 10/17/19 22:47 Morphine IV Q4H PRN Pain, Moderate (4-6) Multi-Ingred Cream/Lotion/Oil/Oint 1 applic 10/23/19 17:29 Artificial Tears Ophth Oint OU Q4HR PRN Dry Eye(s) Ondansetron HCl 4 mg 10/17/19 22:47 Zofran IV Q8H PRN Nausea And Vomiting Oseltamivir Phosphate 150 mg 10/24/19 17:00 10/25/19 05:55 Tamiflu PO 10/25/19 17:01 150 mg Q12H EDI Administration Pantoprazole Sodium 40 mg 10/21/19 10:00 10/25/19 09:31 Protonix PO 40 mg DAILY EDI Administration Simple Syrup 15 ml 10/24/19 11:54 Simple Syrup FEEDTUBE PRN PRN Hypoglycemia Simple Syrup 30 ml 10/24/19 11:54 Simple Syrup FEEDTUBE PRN PRN Hypoglycemia Sodium Bicarbonate 325 mg 10/24/19 11:54 Sodium Bicarbonate FEEDTUBE PRN PRN For Clogged Feeding Tube Sodium Chloride 10 ml 10/18/19 10:00 10/25/19 09:31 Sodium Chloride Flush Syringe 10 Ml IV 10 ml BID EDI Administration Sodium Chloride 10 ml 10/17/19 22:47 Sodium Chloride Flush Syringe 10 Ml IV PRN PRN LINE FLUSH Nutrition/Malnutrition Assess - Dietary Evaluation Nutrition/Malnutrition Findings: Nutrition Notes Start: 10/19/19 13:20 Freq: Status: Active Protocol: Document 10/24/19 07:52 LM (Rec: 10/24/19 08:06 LM [id number]) Nutrition Notes Need for Assessment generated from: MD Order Initial or Follow up Reassessment Current Diagnosis Hypertension,Respiratory Failure Other Pertinent Diagnosis Influlenza A pneumonia, lymphedema, pulmonary edema, SOB, DVT Current Diet Cardiac Labs/Tests Na 136 BUN 19 BG 125 Pertinent Medications Lasix Solumedrol Propofol (210 kcal) Height 5 ft 6 in Weight 265 kg [place] Body Weight (kg) 59.09 BMI 94.3 Subjective/Other Information MD consult for TF/ evaluate nutritional intake. Already following pt. Pt intubated / . Burn Absent Trauma Absent Current % PO Negligible Minimum of two criteria No #2 Nutrition Diagnosis Inadequate oral intake Etiology Mechanical vent As Evidenced by Signs and Symptoms Pt unable to consume PO Diagnosis Progress(for reassessment Worsened documentation) #1 Nutrition Diagnosis Food and nutrition-related knowledge deficit Diagnosis Progress(for reassessment Resolved documentation) Is patient on ventilator? Yes Is Patient Ambulatory and/or Out of Bed No REE-([facility]-confined to bed) 3957.528 Kcal/Kg value to use for calculation 7 Approximate Energy Requirements Using 1855 kcal/Kg Calculation Used for Recommendations Kcal/kg Additional Notes Protein needs: 148g (up to 2. 5g/kg IBW 59 kg) Fluid: 1 ml/kcal Nutrition Intervention Change Diet Order: TF Nutrition Support: Vital AF 1.2 at 65 ml/hr Flush 50 ml q4h for hyponatremia Flush 100 ml q4h once hyponatremia resolves Kcal 1,872 Protein (gm) 117 Fluid (mL) 1,265 Goal #1 TF start/tolerance Anticipated Discharge Needs: unable to determine at this time Follow-Up By: 10/26/19 Additional Comments F/U for TF start/tolerance
[2019-10-26] MEDS: PROPOFOL 1,000 MG/100 ML BOTTLE IV SCH ×10 (00:21→21:28)
[2019-10-26] MEDS: fentaNYL DRIP Premix 2,000 MCG/100 ML BAG IV SCH ×8 (00:22→20:48)
--- NOTE | 2019-10-26 04:40 | XRay Report ---
CHEST 1 VIEW, 10/26/2019 2:19 AM CLINICAL INFORMATION/INDICATION: Respiratory failure COMPARISON: Chest radiograph, 10/25/2019 at 1:52 AM FINDINGS: SUPPORT DEVICES: The endotracheal tube remains in stable position. A feeding tube may also be present , but distal end is not well visualized. HEART: The cardiac silhouette is upper limits of normal in size. LUNGS/PLEURA: Bilateral pulmonary opacities do not appear significantly changed. There is no evidence of pneumothorax. ADDITIONAL FINDINGS: No additional acute findings. IMPRESSION: 1. Stable appearance of bilateral pulmonary opacities. Signer Name: Kacie Willard MD Signed: 10/26/2019 4:36 AM Workstation Name: [id number]
[2019-10-26] MEDS: CEFEPIME/NS 2 GM/100 ML 2 GM/100 ML BAG IV SCH ×3 (05:05→20:53)
[2019-10-26] MEDS: FUROSEMIDE 40 MG/4 ML INJ IV SCH (05:06)
[2019-10-26] MEDS: HEPARIN 5,000 UNIT/1 ML VIAL SUB-Q SCH ×3 (05:06→21:29)
[2019-10-26 06:12] LABS: Hematocrit 30.7 % (30.3-42.9); Hemoglobin 9.5 gm/dl (10.1-14.3); Mean Corpuscular HGB Conc 31 % (30-34); Mean Corpuscular Volume 81 fl (79-97); Platelet Count 344 K/mm3 (140-440); Red Blood Count 3.78 M/mm3 (3.65-5.03)
[2019-10-26 06:22] LABS: Red Cell Distribution Width 22.3 % (13.2-15.2)
[2019-10-26 06:28] LABS: BUN/Creatinine Ratio 45; Blood Urea Nitrogen 27 mg/dL (7-17); Calcium 8.6 mg/dL (8.4-10.2); Hemolysis Index 1
[2019-10-26] MEDS: IPRATROPIUM/ALBUTEROL SULFATE 3 ML AMPUL.NEB IH SCH ×3 (08:39→20:41)
--- NOTE | 2019-10-26 08:44 | Progress Note ---
Assessment and Plan Assessment and plan: Patient is a 49 yo woman with a history of severe obesity BMI 93.6 (579 lbs), hypertension, lymphedema, functional quadriplegia and DENA non compliant with CPAP who admitted to [facility] ED on 10/18/19 with Respiratory failure wtih pulse ox in the 50s. She was treated with BIPAP up until 10/23/2019 around 5pm when she was intubated by Anesthesia using guidescope. Trach aspirate growing GNR (still pending) and iv zosyn started then switched to Cefepime by ID. * pCXR shows Probable congestive heart failure * TTE Conclusions: The left ventricular size is mildly dilated, mild to moderate concentric LVH, est EF 40-45%, left atrium is mildly dilated, trace MR, mild TR, mild to moderate Pulmonary hypertension, RVSP is calculated at 42 mmHg Acute hypoxic respiratory failure, failed BIPAP, intubated 10/23/2019: 40% on PEEP 14, try to wean as possible, CCM/pulm following Sepsis Pneumonia due to Influenza A: treatment with Tamiflu, ID following Acute diastolic heart failure suspected: treated with iv lasix BID, consulted Cardiology, input noted Bronchospasm: added duonebs around the clock and ordered a dose of iv Solumedrol, consulted Pulm/CCM Extreme Obesity, BMI re-calculated to 84.3: supportive care, 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 Follow-up on current diagnosis of respiratory failure, influenza pna. Overnight uneventful as no events directly reported to me. Intubated and sedated. Imaging, nursing note, chart, labs and old chart reviewed. Hospitalist Physical - Physical exam Narrative exam: Gen: ill appearing, bmi 84.3 Awake, Alert, Orientated HEENT: NCAT, EOMI, PERRL, OP Clear Neck: supple, no adenopathy, no thyromegaly, equiv JVD CVS/Heart: Regular tachycardiac, normal S1S2, pulses present bilaterally Chest/Lungs: tachypneic, diminished bs bilateral with wheezing, Symmetrical chest expansion, good air entry bilaterally GI/Abdomen: soft, NTND, good bowel sounds, no guarding or rebound /Bladder: no suprapubic tenderness, no CVA or paraspinal tenderness Extermity/Skin: ble edema improved MSK: FROM x 4 Neuro: CN 2-12 grossly intact, no new focal deficits Psych: calm - Constitutional Vitals: Temp Pulse Resp BP Pulse Ox 100.4 F H 100 H 22 120/64 92 10/26/19 04:00 10/26/19 08:36 10/26/19 08:01 10/26/19 08:36 10/26/19 08:36 General appearance: Present: obese. Absent: mild distress Results - Labs CBC & Chem 7: 10/26/19 05:20 10/26/19 05:20 Labs: Laboratory Last Values WBC 7.3 K/mm3 (4.5-11.0) 10/26/19 05:20 RBC 3.78 M/mm3 (3.65-5.03) 10/26/19 05:20 Hgb 9.5 gm/dl (10.1-14.3) L 10/26/19 05:20 Hct 30.7 % (30.3-42.9) 10/26/19 05:20 MCV 81 fl (79-97) 10/26/19 05:20 MCH 25 pg (28-32) L 10/26/19 05:20 MCHC 31 % (30-34) 10/26/19 05:20 RDW 22.3 % (13.2-15.2) H 10/26/19 05:20 Plt Count 344 K/mm3 (140-440) 10/26/19 05:20 Lymph % (Auto) 12.5 % (13.4-35.0) L 10/18/19 05:21 Collier % (Auto) 7.9 % (0.0-7.3) H 10/18/19 05:21 Eos % (Auto) 0.0 % (0.0-4.3) 10/18/19 05:21 Baso % (Auto) 1.0 % (0.0-1.8) 10/18/19 05:21 Lymph # 0.4 K/mm3 (1.2-5.4) L 10/18/19 05:21 Collier # 0.3 K/mm3 (0.0-0.8) 10/18/19 05:21 Eos # 0.0 K/mm3 (0.0-0.4) 10/18/19 05:21 Baso # 0.0 K/mm3 (0.0-0.1) 10/18/19 05:21 Add Manual Diff Complete 10/17/19 20:57 Total Counted 100 10/17/19 20:57 Seg Neutrophils % 78.6 % (40.0-70.0) H 10/18/19 05:21 Seg Neuts % (Manual) 77.0 % (40.0-70.0) H 10/17/19 20:57 Band Neutrophils % 0 % 10/17/19 20:57 Lymphocytes % (Manual) 14.0 % (13.4-35.0) 10/17/19 20:57 Reactive Lymphs % (Man) 0 % 10/17/19 20:57 Monocytes % (Manual) 9.0 % (0.0-7.3) H 10/17/19 20:57 Eosinophils % (Manual) 0 % (0.0-4.3) 10/17/19 20:57 Basophils % (Manual) 0 % (0.0-1.8) 10/17/19 20:57 Metamyelocytes % 0 % 10/17/19 20:57 Myelocytes % 0 % 10/17/19 20:57 Promyelocytes % 0 % 10/17/19 20:57 Blast Cells % 0 % 10/17/19 20:57 Nucleated RBC % Not Reportable 10/17/19 20:57 Seg Neutrophils # 2.6 K/mm3 (1.8-7.7) 10/18/19 05:21 Seg Neutrophils # Man 3.1 K/mm3 (1.8-7.7) 10/17/19 20:57 Band Neutrophils # 0.0 K/mm3 10/17/19 20:57 Lymphocytes # (Manual) 0.6 K/mm3 (1.2-5.4) L 10/17/19 20:57 Abs React Lymphs (Man) 0.0 K/mm3 10/17/19 20:57 Monocytes # (Manual) 0.4 K/mm3 (0.0-0.8) 10/17/19 20:57 Eosinophils # (Manual) 0.0 K/mm3 (0.0-0.4) 10/17/19 20:57 Basophils # (Manual) 0.0 K/mm3 (0.0-0.1) 10/17/19 20:57 Metamyelocytes # 0.0 K/mm3 10/17/19 20:57 Myelocytes # 0.0 K/mm3 10/17/19 20:57 Promyelocytes # 0.0 K/mm3 10/17/19 20:57 Blast Cells # 0.0 K/mm3 10/17/19 20:57 WBC Morphology Not Reportable 10/17/19 20:57 Hypersegmented Neuts Not Reportable 10/17/19 20:57 Hyposegmented Neuts Not Reportable 10/17/19 20:57 Hypogranular Neuts Not Reportable 10/17/19 20:57 Smudge Cells Not Reportable 10/17/19 20:57 Toxic Granulation Not Reportable 10/17/19 20:57 Toxic Vacuolation Not Reportable 10/17/19 20:57 Dohle Bodies Not Reportable 10/17/19 20:57 Pelger-Huet Anomaly Not Reportable 10/17/19 20:57 Krista Rods Not Reportable 10/17/19 20:57 Platelet Estimate Not Reportable 10/17/19 20:57 Clumped Platelets Not Reportable 10/17/19 20:57 Plt Clumps, EDTA Not Reportable 10/17/19 20:57 Large Platelets Not Reportable 10/17/19 20:57 Giant Platelets Not Reportable 10/17/19 20:57 Platelet Satelliting Not Reportable 10/17/19 20:57 Plt Morphology Comment Not Reportable 10/17/19 20:57 RBC Morphology Not Reportable 10/17/19 20:57 Dimorphic RBCs Not Reportable 10/17/19 20:57 Polychromasia Not Reportable 10/17/19 20:57 Hypochromasia 1+ 10/17/19 20:57 Poikilocytosis Not Reportable 10/17/19 20:57 Anisocytosis 2+ 10/17/19 20:57 Microcytosis Not Reportable 10/17/19 20:57 Macrocytosis Not Reportable 10/17/19 20:57 Spherocytes Not Reportable 10/17/19 20:57 Pappenheimer Bodies Not Reportable 10/17/19 20:57 Sickle Cells Not Reportable 10/17/19 20:57 Target Cells Not Reportable 10/17/19 20:57 Tear Drop Cells Not Reportable 10/17/19 20:57 Ovalocytes Not Reportable 10/17/19 20:57 Helmet Cells Not Reportable 10/17/19 20:57 Gallagher-Bolingbrook Bodies Not Reportable 10/17/19 20:57 Sledge Rings Not Reportable 10/17/19 20:57 James Cells Not Reportable 10/17/19 20:57 Bite Cells Not Reportable 10/17/19 20:57 Crenated Cell Not Reportable 10/17/19 20:57 Elliptocytes Not Reportable 10/17/19 20:57 Acanthocytes (Spur) Not Reportable 10/17/19 20:57 Rouleaux Not Reportable 10/17/19 20:57 Hemoglobin C Crystals Not Reportable 10/17/19 20:57 Schistocytes Not Reportable 10/17/19 20:57 Malaria parasites Not Reportable 10/17/19 20:57 Alejandro Bodies Not Reportable 10/17/19 20:57 Hem Pathologist Commnt No 10/17/19 20:57 POC ABG pH 7.430 (7.35-7.45) 10/26/19 04:19 ABG pH 7.520 pH Units (7.350-7.450) H 10/22/19 00:35 POC ABG pCO2 66.1 (35-45) H 10/26/19 04:19 ABG pCO2 46.1 mm Hg 10/22/19 00:35 POC ABG pO2 75 (80-105) L 10/26/19 04:19 ABG pO2 64.4 mm Hg (80.0-90.0) L 10/22/19 00:35 POC ABG HCO3 43.9 (22-26 mml/L) 10/26/19 04:19 ABG HCO3 36.8 mmol/L (20.0-26.0) H 10/22/19 00:35 POC ABG Total CO2 46 (23-27mmol/L) 10/26/19 04:19 POC ABG O2 Sat 95 10/26/19 04:19 ABG O2 Saturation 97.0 % (95.0-99.0) 10/22/19 00:35 ABG O2 Content 13.9 (0.0-44) 10/22/19 00:35 POC ABG Base Excess 20 ((-2) - (+3)mmol/L) 10/26/19 04:19 ABG Base Excess 12.6 mmol/L (-2.0-3.0) H 10/22/19 00:35 ABG Hemoglobin 10.4 gm/dl (12.0-16.0) L 10/22/19 00:35 ABG Carboxyhemoglobin 1.6 % (0.0-5.0) 10/22/19 00:35 ABG Methemoglobin 0.5 % (0.0-1.5) 10/22/19 00:35 Oxyhemoglobin 95.0 % (95.0-99.0) 10/22/19 00:35 FiO2 40 % 10/26/19 04:19 Sodium 152 mmol/L (137-145) H 10/26/19 05:20 Potassium 3.6 mmol/L (3.6-5.0) 10/26/19 05:20 Chloride 102.7 mmol/L (98-107) 10/26/19 05:20 Carbon Dioxide 33 mmol/L (22-30) H 10/26/19 05:20 Anion Gap 20 mmol/L 10/26/19 05:20 BUN 27 mg/dL (7-17) H 10/26/19 05:20 Creatinine 0.6 mg/dL (0.7-1.2) L 10/26/19 05:20 Estimated GFR > 60 ml/min 10/26/19 05:20 BUN/Creatinine Ratio 45 % 10/26/19 05:20 Glucose 135 mg/dL (65-100) H 10/26/19 05:20 POC Glucose 108 (70-105) H 10/22/19 05:19 Calcium 8.6 mg/dL (8.4-10.2) 10/26/19 05:20 Total Bilirubin 0.20 mg/dL (0.1-1.2) 10/17/19 20:57 AST 57 units/L (5-40) H 10/17/19 20:57 ALT 22 units/L (7-56) 10/17/19 20:57 Alkaline Phosphatase 67 units/L (35-129) 10/17/19 20:57 Total Creatine Kinase 857 units/L (30-135) H 10/17/19 20:57 CK-MB (CK-2) 2.6 ng/mL (0.0-4.0) 10/17/19 20:57 CK-MB (CK-2) Rel Index 0.3 (0-4) 10/17/19 20:57 Troponin T < 0.010 ng/mL (0.00-0.029) 10/17/19 20:57 NT-Pro-B Natriuret Pep 317.6 pg/mL (0-450) 10/17/19 20:57 Total Protein 7.1 g/dL (6.3-8.2) 10/17/19 20:57 Albumin 3.0 g/dL (3.9-5) L 10/17/19 20:57 Albumin/Globulin Ratio 0.7 % 10/17/19 20:57 Procalcitonin 0.06 ng/mL (<0.15) 10/20/19 14:51 Influenza A (Rapid) Positive (Negative) A 10/17/19 Unknown Influenza B (Rapid) Negative (Negative) 10/17/19 Unknown Active Medications - Current Medications Current Medications: Generic Name Dose Route Start Last Admin Trade Name Freq PRN Reason Stop Dose Admin Albuterol 2.5 mg 10/17/19 22:47 10/19/19 14:34 Proventil IH 2.5 mg Q3HRT PRN Administration Shortness Of Breath Albuterol/Ipratropium 1 ampul 10/19/19 20:00 10/26/19 08:39 Duoneb *Not For Prn Use* IH 1 ampul TIDRT EDI Administration Lipase/Protease/Amylase 1 each 10/24/19 11:54 Pancreazlila Irizarry 10,500 Unit FEEDTUBE PRN PRN For Clogged Feeding Tube Fentanyl 50 mcg 10/23/19 17:29 Sublimaze IV Q10MIN PRN ANALGESIA Furosemide 40 mg 10/18/19 06:00 10/26/19 05:06 Lasix IV 40 mg BID@0600,1800 EDI Administration Heparin Sodium (Porcine) 5,000 unit 10/18/19 06:00 10/26/19 05:06 Heparin SUB-Q 5,000 unit Q8HR EDI Administration Hydrophilic Ointment 1 applic 10/23/19 17:29 10/25/19 11:45 Vaseline Lip Therapy TP 1 applic Q2HR PRN Administration Dry Lips Fentanyl Citrate 2,000 mcg in 100 mls @ 13.25 mls/hr 10/23/19 18:00 10/26/19 06:05 Fentanyl Drip Premix IV 3 mcg/kg/hr TITR EDI 39.75 mls/hr Administration Protocol 1 MCG/KG/HR Propofol 1,000 mg in 100 mls @ 7.95 mls/hr 10/23/19 18:00 10/26/19 07:15 Diprivan 10 Mg/Ml IV 30 mcg/kg/min TITR EDI 47.7 mls/hr Administration Protocol 5 MCG/KG/MIN Cefepime HCl 2 gm in 100 mls @ 200 mls/hr 10/24/19 13:00 10/26/19 05:05 Cefepime/Ns 2 Gm/100 Ml IV 200 mls/hr Q8H EDI Administration Protocol Labetalol HCl 10 mg 10/24/19 14:32 Labetalol IV Q4H PRN Blood Pressure Lorazepam 1 mg 10/17/19 20:39 10/23/19 10:56 Ativan IV 1 mg ONCE PRN Administration Anxiety Morphine Sulfate 2 mg 10/17/19 22:47 Morphine IV Q4H PRN Pain, Moderate (4-6) Multi-Ingred Cream/Lotion/Oil/Oint 1 applic 10/23/19 17:29 Artificial Tears Ophth Oint OU Q4HR PRN Dry Eye(s) Ondansetron HCl 4 mg 10/17/19 22:47 Zofran IV Q8H PRN Nausea And Vomiting Pantoprazole Sodium 40 mg 10/21/19 10:00 10/25/19 09:31 Protonix PO 40 mg DAILY EDI Administration Simple Syrup 15 ml 10/24/19 11:54 Simple Syrup FEEDTUBE PRN PRN Hypoglycemia Simple Syrup 30 ml 10/24/19 11:54 Simple Syrup FEEDTUBE PRN PRN Hypoglycemia Sodium Bicarbonate 325 mg 10/24/19 11:54 Sodium Bicarbonate FEEDTUBE PRN PRN For Clogged Feeding Tube Sodium Chloride 10 ml 10/18/19 10:00 10/25/19 21:00 Sodium Chloride Flush Syringe 10 Ml IV 10 ml BID EDI Administration Sodium Chloride 10 ml 10/17/19 22:47 Sodium Chloride Flush Syringe 10 Ml IV PRN PRN LINE FLUSH Nutrition/Malnutrition Assess - Dietary Evaluation Nutrition/Malnutrition Findings: Nutrition Notes Start: 10/19/19 13 :20 Freq: Status: Active Protocol: Document 10/24/19 07:52 LM (Rec: 10/24/19 08:06 LM [id number]) Nutrition Notes Need for Assessment generated from: MD Order Initial or Follow up Reassessment Current Diagnosis Hypertension,Respiratory Failure Other Pertinent Diagnosis Influlenza A pneumonia, lymphedema, pulmonary edema, SOB, DVT Current Diet Cardiac Labs/Tests Na 136 BUN 19 BG 125 Pertinent Medications Lasix Solumedrol Propofol (210 kcal) Height 5 ft 6 in Weight 265 kg Richards Body Weight (kg) 59.09 BMI 94.3 Subjective/Other Information MD consult for TF/ evaluate nutritional intake. Already following pt. Pt intubated 10/23 . Burn Absent Trauma Absent Current % PO Negligible Minimum of two criteria No #2 Nutrition Diagnosis Inadequate oral intake Etiology Mechanical vent As Evidenced by Signs and Symptoms Pt unable to consume PO Diagnosis Progress(for reassessment Worsened documentation) #1 Nutrition Diagnosis Food and nutrition-related knowledge deficit Diagnosis Progress(for reassessment Resolved documentation) Is patient on ventilator? Yes Is Patient Ambulatory and/or Out of Bed No REE-([facility]-confined to bed) 3957.528 Kcal/Kg value to use for calculation 7 Approximate Energy Requirements Using 1855 kcal/Kg Calculation Used for Recommendations Kcal/kg Additional Notes Protein needs: 148g (up to 2. 5g/kg IBW 59 kg) Fluid: 1 ml/kcal Nutrition Intervention Change Diet Order: TF Nutrition Support: Vital AF 1.2 at 65 ml/hr Flush 50 ml q4h for hyponatremia Flush 100 ml q4h once hyponatremia resolves Kcal 1,872 Protein (gm) 117 Fluid (mL) 1,265 Goal #1 TF start/tolerance Anticipated Discharge Needs: unable to determine at this time Follow-Up By: 10/26/19 Additional Comments F/U for TF start/tolerance
--- NOTE | 2019-10-26 08:54 | Progress Note ---
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 Goal is to start SBT in the next 48-72 hours. Nutritional support -VAP bundle addresed- no leak in ETT -Aspiration precautions, HOB>40 degrees -Wean FIO2 for O2 sats 88-90%. Once FIO2 to down to 50% with adequate oxygenation, will start weaning PEEP -Daily assessment for readiness to wean -Oxygen restrictive strategies -Titrate sedation to RASS -1 - Anti-virals for Influenza infection-ID following, added Cefepime to therapy -Bronchodilators per protocol -Start tube feedings via the small bowel feeding tube -Continue airborne isolation -Continue with VTE prophylaxis -Continue stress ulcer prophylaxis - Continue with Accuchecks with glycemic control for SSI (While critically ill target blood glucose of 140-180 mg/dL; avoid hypoglycemia) - Continue mobility protocol for pressure ulcer prevention - Continue to monitor hemodynamics closely - Continue to monitor electrolyte profile closely and replete as indicated -Chronic home medications, resume as clinically indicated - Continue with diuresis while monitoring renal function -Blanchard catheter in this critically ill patient, with poor urine output, requiring accurate intake and output monitoring. She acutely de-saturates with minimal movement -PT/OT -Weight loss and life style modifications on discharge. May need surgical bariatric intervention( discussed this with her and her sister- patient currently does not have health insurance but has applied) -Out patient evaluation for sleep apnea Discussed with RT and RN Updated her sister who was at the bedside CONDITION: CRITICAL PROGNOSIS: GUARDED CODE STATUS: FULL CODE The high probability of a clinically significant, sudden or life-threatening deterioration of the [respiratory, cardiovascular,] system(s) required my full and direct attention, intervention and personal management. The aggregate critical care time was [35] minutes without overlap. Time includes spent on; [x] Data Review and interpretation [x] Patient assessment and monitoring of vital signs [x] Documentation [x] Medication orders and management Subjective Date of service: 10/26/19 Principal diagnosis: acute respiratory distress Interval history: Patient is seen today for: acute hypoxic-hypercapnic respiratory failure on MVS; influenza infection; extreme obesity with probable DEAN Seen and examined at bedside; 24hour events reviewed; nursing and respiratory care staff consulted; no adverse overnight events reported to me; Intubated yesterday for increasing FIO2 requirements, had been on continuous BIPAP without improvement; No fevers, no diarrhea, no vomiting. Patient is on MVS, ETT in place to MVS FIO2 45%, PEEP 12- airway pressures are within normal. On fentanyl and propofol- comfortable Left radial arterial line, RUExt midline, Blanchard catheter Vitals, labs, medications, chart and imaging reviewed. Discussed with RT and RN Updated her sisters who were are the bedside Objective Vital Signs - 12hr 10/25/19 10/25/19 10/25/19 21:01 21:15 21:31 Temperature Pulse Rate 102 H 107 H 106 H Pulse Rate [ From Monitor] Respiratory 17 24 22 Rate Blood Pressure 144/82 144/82 144/82 O2 Sat by Pulse 92 93 93 Oximetry 10/25/19 10/25/19 10/25/19 21:45 22:01 22:15 Temperature Pulse Rate 107 H 112 H 105 H Pulse Rate [ From Monitor] Respiratory 23 12 25 H Rate Blood Pressure 144/82 144/82 144/82 O2 Sat by Pulse 93 94 92 Oximetry 10/25/19 10/25/19 10/25/19 22:31 22:45 23:01 Temperature Pulse Rate 101 H 123 H 122 H Pulse Rate [ From Monitor] Respiratory 26 H 23 24 Rate Blood Pressure 144/82 144/82 144/82 O2 Sat by Pulse 91 91 92 Oximetry 10/25/19 10/25/19 10/25/19 23:15 23:19 23:31 Temperature 99.8 F H Pulse Rate 127 H 116 H Pulse Rate [ From Monitor] Respiratory 27 H 20 Rate Blood Pressure 144/82 144/82 O2 Sat by Pulse Oximetry 10/25/19 10/25/19 10/26/19 23:45 23:53 00:00 Temperature Pulse Rate 111 H 128 H 102 H Pulse Rate [ 106 H From Monitor] Respiratory 20 19 Rate Blood Pressure 144/82 99/73 O2 Sat by Pulse 91 90 Oximetry 10/26/19 10/26/19 10/26/19 00:01 00:15 00:31 Temperature Pulse Rate 106 H 103 H 101 H Pulse Rate [ From Monitor] Respiratory 19 26 H 28 H Rate Blood Pressure 144/82 144/82 144/82 O2 Sat by Pulse 90 90 89 Oximetry 10/26/19 10/26/19 10/26/19 00:45 01:01 01:15 Temperature Pulse Rate 101 H 100 H 100 H Pulse Rate [ From Monitor] Respiratory 22 26 H 28 H Rate Blood Pressure 144/82 144/82 144/82 O2 Sat by Pulse 90 90 90 Oximetry 10/26/19 10/26/19 10/26/19 01:31 01:45 02:00 Temperature Pulse Rate 103 H 100 H 99 H Pulse Rate [ From Monitor] Respiratory 24 22 18 Rate Blood Pressure 144/82 144/82 144/82 O2 Sat by Pulse 89 91 91 Oximetry 10/26/19 10/26/19 10/26/19 02:15 02:31 02:45 Temperature Pulse Rate 98 H 98 H 95 H Pulse Rate [ From Monitor] Respiratory 25 H 27 H 28 H Rate Blood Pressure 144/82 144/82 144/82 O2 Sat by Pulse 91 90 90 Oximetry 10/26/19 10/26/19 10/26/19 03:01 03:15 03:20 Temperature Pulse Rate 101 H 106 H 101 H Pulse Rate [ From Monitor] Respiratory 28 H 25 H Rate Blood Pressure 144/82 144/82 123/68 O2 Sat by Pulse 90 93 92 Oximetry 10/26/19 10/26/19 10/26/19 03:31 03:45 04:00 Temperature 100.4 F H Pulse Rate 101 H 106 H 108 H Pulse Rate [ 108 H From Monitor] Respiratory 22 26 H 17 Rate Blood Pressure 144/82 144/82 O2 Sat by Pulse 93 93 93 Oximetry 10/26/19 10/26/19 10/26/19 04:01 04:15 04:31 Temperature Pulse Rate 106 H 103 H 98 H Pulse Rate [ From Monitor] Respiratory 17 25 H 17 Rate Blood Pressure 144/82 144/82 144/82 O2 Sat by Pulse 93 93 94 Oximetry 10/26/19 10/26/19 10/26/19 04:45 05:01 05:15 Temperature Pulse Rate 100 H 97 H 103 H Pulse Rate [ From Monitor] Respiratory 20 25 H 18 Rate Blood Pressure 144/82 144/82 144/82 O2 Sat by Pulse 90 91 91 Oximetry 10/26/19 10/26/19 10/26/19 05:31 05:45 06:01 Temperature Pulse Rate 106 H 103 H 106 H Pulse Rate [ From Monitor] Respiratory 25 H 14 19 Rate Blood Pressure 144/82 144/82 144/82 O2 Sat by Pulse 91 92 91 Oximetry 10/26/19 10/26/19 10/26/19 06:15 06:31 06:45 Temperature Pulse Rate 99 H 95 H 94 H Pulse Rate [ From Monitor] Respiratory 26 H 13 22 Rate Blood Pressure 144/82 144/82 144/82 O2 Sat by Pulse 93 92 93 Oximetry 10/26/19 10/26/19 10/26/19 07:01 07:15 07:31 Temperature Pulse Rate 96 H 93 H 94 H Pulse Rate [ From Monitor] Respiratory 23 28 H 28 H Rate Blood Pressure 144/82 144/82 144/82 O2 Sat by Pulse 92 92 90 Oximetry 10/26/19 10/26/19 10/26/19 07:45 07:58 08:01 Temperature Pulse Rate 96 H 97 H 97 H Pulse Rate [ 100 H From Monitor] Respiratory 27 H 18 22 Rate Blood Pressure 144/82 144/82 O2 Sat by Pulse 92 93 92 Oximetry 10/26/19 08:36 Temperature Pulse Rate 100 H Pulse Rate [ From Monitor] Respiratory Rate Blood Pressure 120/64 O2 Sat by Pulse 92 Oximetry Constitutional: alert, other (nods appropriately to questions, ETT at 24cm, no leak) Eyes: non-icteric ENT: oropharynx moist, other (small bowel feeding tube in nares) Neck: supple, no lymphadenopathy, no JVD, other (short neck, large circunference) Effort: normal Ascultation: Bilateral: diminished breath sounds Cardiovascular: regular rate and rhythm, other (S1,S2) Gastrointestinal: normoactive bowel sounds, soft, non-tender, non-distended Integumentary: normal Extremities: no cyanosis, no edema, pink and warm, pulses normal Neurologic: non-focal exam, pupils equal and round Psychiatric: mood appropriate, affect normal, other CBC and BMP: 10/27/19 05:40 10/31/19 08:02 ABG, PT/INR, D-dimer: ABG POC ABG pH 7.430 (7.35-7.45) 10/26/19 04:19 ABG pH 7.520 pH Units (7.350-7.450) H 10/22/19 00:35 POC ABG pCO2 66.1 (35-45) H 10/26/19 04:19 ABG pCO2 46.1 mm Hg 10/22/19 00:35 POC ABG pO2 75 (80-105) L 10/26/19 04:19 ABG pO2 64.4 mm Hg (80.0-90.0) L 10/22/19 00:35 POC ABG HCO3 43.9 (22-26 mml/L) 10/26/19 04:19 POC ABG Total CO2 46 (23-27mmol/L) 10/26/19 04:19 POC ABG O2 Sat 95 10/26/19 04:19 ABG O2 Saturation 97.0 % (95.0-99.0) 10/22/19 00:35 Abnormal lab findings: Abnormal Labs 10/17/19 10/17/19 10/17/19 20:57 20:57 Unknown WBC 4.0 L Hgb MCV 78 L MCH 25 L RDW 24.7 H Lymph % (Auto) [place] % (Auto) Lymph # Seg Neutrophils % Seg Neuts % (Manual) 77.0 H Monocytes % (Manual) 9.0 H Lymphocytes # (Manual) 0.6 L POC ABG pH ABG pH POC ABG pCO2 POC ABG pO2 ABG pO2 ABG HCO3 ABG Base Excess ABG Hemoglobin Sodium Potassium 3.5 L Chloride Carbon Dioxide BUN Creatinine 0.6 L Glucose 147 H POC Glucose Calcium 7.9 L AST 57 H Total Creatine Kinase 857 H Albumin 3.0 L Influenza A (Rapid) Positive A 10/18/19 10/18/19 10/18/19 05:21 05:21 09:19 WBC 3.3 L Hgb MCV MCH 25 L RDW 24.3 H Lymph % (Auto) 12.5 L [place] % (Auto) 7.9 H Lymph # 0.4 L Seg Neutrophils % 78.6 H Seg Neuts % (Manual) Monocytes % (Manual) Lymphocytes # (Manual) POC ABG pH ABG pH POC ABG pCO2 POC ABG pO2 ABG pO2 131.3 H ABG HCO3 30.2 H ABG Base Excess 4.5 H ABG Hemoglobin 10.7 L Sodium Potassium Chloride Carbon Dioxide BUN Creatinine Glucose 167 H POC Glucose Calcium 8.3 L AST Total Creatine Kinase Albumin Influenza A (Rapid) 10/18/19 10/18/19 10/19/19 11:28 18:27 06:39 WBC Hgb MCV MCH RDW Lymph % (Auto) [place] % (Auto) Lymph # Seg Neutrophils % Seg Neuts % (Manual) Monocytes % (Manual) Lymphocytes # (Manual) POC ABG pH 7.461 H 7.487 H ABG pH POC ABG pCO2 53.4 H 52.8 H 51.7 H POC ABG pO2 70 L 71 L ABG pO2 ABG HCO3 ABG Base Excess ABG Hemoglobin Sodium Potassium Chloride Carbon Dioxide BUN Creatinine Glucose POC Glucose Calcium AST Total Creatine Kinase Albumin Influenza A (Rapid) 10/19/19 10/20/19 10/20/19 23:25 05:31 09:08 WBC Hgb MCV MCH RDW Lymph % (Auto) [place] % (Auto) Lymph # Seg Neutrophils % Seg Neuts % (Manual) Monocytes % (Manual) Lymphocytes # (Manual) POC ABG pH ABG pH POC ABG pCO2 POC ABG pO2 ABG pO2 ABG HCO3 ABG Base Excess ABG Hemoglobin Sodium Potassium Chloride Carbon Dioxide BUN Creatinine Glucose POC Glucose 203 H 144 H 163 H Calcium AST Total Creatine Kinase Albumin Influenza A (Rapid) 10/20/19 10/20/19 10/20/19 10:25 13:22 14:51 WBC Hgb MCV MCH RDW Lymph % (Auto) [place] % (Auto) Lymph # Seg Neutrophils % Seg Neuts % (Manual) Monocytes % (Manual) Lymphocytes # (Manual) POC ABG pH 7.632 H ABG pH POC ABG pCO2 POC ABG pO2 74 L ABG pO2 ABG HCO3 ABG Base Excess ABG Hemoglobin Sodium 147 H Potassium Chloride Carbon Dioxide 31 H BUN Creatinine 0.5 L Glucose 154 H POC Glucose 178 H Calcium 8.2 L AST Total Creatine Kinase Albumin Influenza A (Rapid) 10/20/19 10/20/19 10/20/19 14:51 17:16 21:30 WBC 11.2 H Hgb MCV 78 L MCH 25 L RDW 23.9 H Lymph % (Auto) [place] % (Auto) Lymph # Seg Neutrophils % Seg Neuts % (Manual) Monocytes % (Manual) Lymphocytes # (Manual) POC ABG pH ABG pH POC ABG pCO2 POC ABG pO2 ABG pO2 ABG HCO3 ABG Base Excess ABG Hemoglobin Sodium Potassium Chloride Carbon Dioxide BUN Creatinine Glucose POC Glucose 143 H 152 H Calcium AST Total Creatine Kinase Albumin Influenza A (Rapid) 10/20/19 10/21/19 10/21/19 22:52 05:55 08:27 WBC Hgb MCV MCH RDW Lymph % (Auto) [place] % (Auto) Lymph # Seg Neutrophils % Seg Neuts % (Manual) Monocytes % (Manual) Lymphocytes # (Manual) POC ABG pH ABG pH POC ABG pCO2 POC ABG pO2 ABG pO2 ABG HCO3 ABG Base Excess ABG Hemoglobin Sodium Potassium Chloride Carbon Dioxide BUN Creatinine Glucose POC Glucose 179 H 115 H 131 H Calcium AST Total Creatine Kinase Albumin Influenza A (Rapid) 10/21/19 10/21/19 10/21/19 11:52 16:23 23:38 WBC Hgb MCV MCH RDW Lymph % (Auto) [place] % (Auto) Lymph # Seg Neutrophils % Seg Neuts % (Manual) Monocytes % (Manual) Lymphocytes # (Manual) POC ABG pH ABG pH POC ABG pCO2 POC ABG pO2 ABG pO2 ABG HCO3 ABG Base Excess ABG Hemoglobin Sodium Potassium Chloride Carbon Dioxide BUN Creatinine Glucose POC Glucose 122 H 120 H 115 H Calcium AST Total Creatine Kinase Albumin Influenza A (Rapid) 10/22/19 10/22/19 10/22/19 00:35 05:19 06:10 WBC Hgb MCV MCH 25 L RDW 22.8 H Lymph % (Auto) [place] % (Auto) Lymph # Seg Neutrophils % Seg Neuts % (Manual) Monocytes % (Manual) Lymphocytes # (Manual) POC ABG pH ABG pH 7.520 H POC ABG pCO2 POC ABG pO2 ABG pO2 64.4 L ABG HCO3 36.8 H ABG Base Excess 12.6 H ABG Hemoglobin 10.4 L Sodium Potassium Chloride Carbon Dioxide BUN Creatinine Glucose POC Glucose 108 H Calcium AST Total Creatine Kinase Albumin Influenza A (Rapid) 10/22/19 10/24/19 10/25/19 15:40 05:49 04:20 WBC Hgb MCV MCH RDW Lymph % (Auto) [place] % (Auto) Lymph # Seg Neutrophils % Seg Neuts % (Manual) Monocytes % (Manual) Lymphocytes # (Manual) POC ABG pH 7.454 H ABG pH POC ABG pCO2 64.1 H 63.5 H POC ABG pO2 73 L ABG pO2 ABG HCO3 ABG Base Excess ABG Hemoglobin Sodium 136 L D Potassium Chloride 97.6 L Carbon Dioxide BUN 19 H Creatinine Glucose 125 H POC Glucose Calcium AST Total Creatine Kinase Albumin Influenza A (Rapid) 10/25/19 10/25/19 10/26/19 05:35 05:35 04:19 WBC Hgb 10.0 L MCV MCH 25 L RDW 22.0 H Lymph % (Auto) [place] % (Auto) Lymph # Seg Neutrophils % Seg Neuts % (Manual) Monocytes % (Manual) Lymphocytes # (Manual) POC ABG pH ABG pH POC ABG pCO2 66.1 H POC ABG pO2 75 L ABG pO2 ABG HCO3 ABG Base Excess ABG Hemoglobin Sodium 147 H D Potassium Chloride Carbon Dioxide 34 H D BUN 23 H Creatinine 0.5 L Glucose 184 H POC Glucose Calcium AST Total Creatine Kinase Albumin Influenza A (Rapid) 10/26/19 10/26/19 05:20 05:20 WBC Hgb 9.5 L MCV MCH 25 L RDW 22.3 H Lymph % (Auto) [place] % (Auto) Lymph # Seg Neutrophils % Seg Neuts % (Manual) Monocytes % (Manual) Lymphocytes # (Manual) POC ABG pH ABG pH POC ABG pCO2 POC ABG pO2 ABG pO2 ABG HCO3 ABG Base Excess ABG Hemoglobin Sodium 152 H Potassium Chloride Carbon Dioxide 33 H BUN 27 H Creatinine 0.6 L Glucose 135 H POC Glucose Calcium AST Total Creatine Kinase Albumin Influenza A (Rapid) Chest x-ray: image reviewed Allied health notes reviewed: RT
[2019-10-26] MEDS: LANSOPRAZOLE 30 MG SOLUTAB FEEDTUBE SCH (09:14)
--- NOTE | 2019-10-26 10:48 | Progress Note ---
Assessment and Plan Cultures: 10/17/2019 blood culture: No growth 10/17/2019 influenza A: Positive 10/23/2019 Resp culture: GNR 10/25/2019 tracheal aspirate: in process 10/25/2019 blood culture: in process A/P: 49-year-old female with morbid obesity, hypertension, lymphedema, functional quadriplegia and sleep apnea admitted with: #Influenza A with acute respiratory failure: completed high dose prolonged Tamiflu course. Intubated, on mechanical ventilation. #Extreme morbid obesity: BMI is 94.3. Recs: continue IV Cefepime 2 gm q8 hrs Follow up cultures Henny Nayak MD, FACP [facility] ([facility]) C: [phone] O: [phone] F: [phone] Subjective Date of service: 10/26/19 Principal diagnosis: acute respiratory distress Interval history: Low grade fevers. Remains intubated, on the vent. Otherwise stable. Objective - Exam Narrative Exam: Physical Exam: Constitutional: sedated, intubated. Morbidly obese Head, Ears, Nose: Normocephalic, atraumatic. External ears, nose normal Eyes: Conjunctivae/corneas clear. No icterus. No ptosis. Neck: intubated Oral: intubated Cardiovascular: S1, S2 normal. Respiratory: Good air entry, clear to auscultation bilaterally GI: Soft, non-tender; bowel sounds normal. No peritoneal signs Musculoskeletal: No pedal edema, no cyanosis. Skin: No rash or abscess Hem/Lymphatic: No palpable cervical or supraclavicular nodes. No lymphangitis Psych: no agitation Neurological: sedated, intubated, on vent - Constitutional Vitals: Vital Signs Temp Pulse Resp BP Pulse Ox 98.8 F 97 H 28 H 144/82 95 10/26/19 08:00 10/26/19 10:01 10/26/19 10:01 10/26/19 10:01 10/26/19 10:01 Temperature -Last 24 Hours Temperature 98.8 F Temperature 100.4 F Temperature 99.8 F Temperature 98.5 F Temperature 100 F Temperature 100.7 F Temperature 101.1 F - Labs CBC & Chem 7: 10/26/19 05:20 10/26/19 05:20 Labs: Abnormal lab results 10/26/19 10/26/19 10/26/19 Range/Units 04:19 05:20 05:20 Hgb 9.5 L (10.1-14.3) gm/dl MCH 25 L (28-32) pg RDW 22.3 H (13.2-15.2) % POC ABG pCO2 66.1 H (35-45) POC ABG pO2 75 L (80-105) Sodium 152 H (137-145) mmol/L Carbon Dioxide 33 H (22-30) mmol/L BUN 27 H (7-17) mg/dL Creatinine 0.6 L (0.7-1.2) mg/dL Glucose 135 H (65-100) mg/dL - Imaging and cardiology Chest x-ray: report reviewed, image reviewed (stable b/l opacities, no interval change.)
[2019-10-26] MEDS: BUMETANIDE 1 MG/4 ML INJ IV SCH (11:18)
[2019-10-27] MEDS: PROPOFOL 1,000 MG/100 ML BOTTLE IV SCH ×11 (00:28→23:32)
[2019-10-27] MEDS: fentaNYL DRIP Premix 2,000 MCG/100 ML BAG IV SCH ×9 (00:29→22:18)
[2019-10-27] MEDS: LIP THERAPY VASELINE TP PRN (00:29)
--- NOTE | 2019-10-27 03:26 | XRay Report ---
CHEST 1 VIEW, 10/27/2019 2:52 AM CLINICAL INFORMATION/INDICATION: Respiratory failure COMPARISON: Chest radiograph, 10/26/2019 at 2:19 AM FINDINGS: SUPPORT DEVICES: The endotracheal tube remains in stable position. HEART: Cardiac silhouette is not well visualized secondary to lung disease. LUNGS/PLEURA: Diffuse bilateral pulmonary opacities do not appear significantly changed when allowing for differences in technique. ADDITIONAL FINDINGS: No additional acute findings. IMPRESSION: 1. Stable appearance of diffuse bilateral pulmonary opacities. Signer Name: Kacie Willard MD Signed: 10/27/2019 3:22 AM Workstation Name: [id number]
[2019-10-27 04:35] LABS: ABG Base Excess 13.3 mmol/L (-2.0-3.0); ABG HCO3 38.2 mmol/L (20.0-26.0); ABG Methemoglobin 0.4 % (0.0-1.5); ABG Oxygen Saturation 97.2 % (95.0-99.0); ABG PCO2 53.6 mm Hg; ABG PH 7.472 pH Units (7.350-7.450); ABG PO2 88.6 mm Hg (80.0-90.0)
[2019-10-27] MEDS: CEFEPIME/NS 2 GM/100 ML 2 GM/100 ML BAG IV SCH ×3 (05:27→20:34)
[2019-10-27] MEDS: HEPARIN 5,000 UNIT/1 ML VIAL SUB-Q SCH ×3 (05:40→21:11)
[2019-10-27 06:14] LABS: Hematocrit 29.1 % (30.3-42.9); Hemoglobin 9.4 gm/dl (10.1-14.3); Mean Corpuscular HGB Conc 32 % (30-34); Mean Corpuscular Volume 80 fl (79-97); Platelet Count 288 K/mm3 (140-440); Red Blood Count 3.62 M/mm3 (3.65-5.03)
[2019-10-27 06:30] LABS: Red Cell Distribution Width 21.7 % (13.2-15.2)
[2019-10-27 06:38] LABS: BUN/Creatinine Ratio 50; Blood Urea Nitrogen 25 mg/dL (7-17); Calcium 8.2 mg/dL (8.4-10.2); Hemolysis Index 2
--- NOTE | 2019-10-27 07:52 | Progress Note ---
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 Functional quadriplegia h/o HTN -Decrease PEEP to 10 and monitor -Baeza-cultures for fevers, symptom management/cooling measures -Has completed anti-viral therapy, on antibiotics per ID service -Continue with diuresis while monitoring renal function, electrolytes - she is being evaluated daily and then a decision is made on administration of diuretics -Free water flushes and hypotonic solution for hypernatremia -Continue with sedation, with daily SAT -Continue mobility protocol, off loading for pressure ulcer prevention- high risk patient -Specialty bed -VAP bundle addresed -Aspiration precautions, HOB>40 degrees -Wean FIO2 for O2 sats 88-90%. Once FIO2 to down to 50% with adequate oxygenation, will start weaning PEEP -Daily assessment for readiness to wean -Oxygen restrictive strategies -Titrate sedation to RASS -1 -Bronchodilators per protocol -Start tube feedings via the small bowel feeding tube -Continue airborne isolation -Continue with VTE prophylaxis -Continue stress ulcer prophylaxis - Continue with Accuchecks with glycemic control for SSI (While critically ill target blood glucose of 140-180 mg/dL; avoid hypoglycemia) - Continue to monitor hemodynamics closely - Continue to monitor electrolyte profile closely and replete as indicated -Chronic home medications, resume as clinically indicated -Blanchard catheter in this critically ill patient, with poor urine output, requiring accurate intake and output monitoring. She acutely de-saturates with minimal movement -PT/OT -Weight loss and life style modifications on discharge. May need surgical bariatric intervention( discussed this with her and her sister- patient currently does not have health insurance but has applied) -Out patient evaluation for sleep apnea Discussed with RT and RN Updated her sister who was at the bedside CONDITION: CRITICAL PROGNOSIS: GUARDED CODE STATUS: FULL CODE The high probability of a clinically significant, sudden or life-threatening deterioration of the [respiratory, cardiovascular,] system(s) required my full and direct attention, intervention and personal management. The aggregate critical care time was [35] minutes without overlap. Time includes spent on; [x] Data Review and interpretation [x] Patient assessment and monitoring of vital signs [x] Documentation [x] Medication orders and management Subjective Date of service: 10/27/19 Principal diagnosis: acute respiratory distress Interval history: Patient is seen today for: acute hypoxic-hypercapnic respiratory failure on MVS; influenza infection; extreme obesity with probable DEAN Seen and examined at bedside; 24hour events reviewed; nursing and respiratory care staff consulted; no adverse overnight events reported to me; Patient is on MVS, ETT in place to MVS FIO2 50%, PEEP 10- airway pressures are within normal. On fentanyl and propofol- comfortable Left radial arterial line, RUExt midline, Blanchard catheter Vitals, labs, medications, chart and imaging reviewed. Discussed with RT and RN Fevers Objective Vital Signs - 12hr 10/26/19 10/26/19 10/26/19 20:00 20:01 20:15 Temperature 99.9 F H Pulse Rate 100 H 106 H 102 H Pulse Rate [ Anterior Bilateral Throughout] Pulse Rate [ 100 H From Monitor] Respiratory 28 H 22 25 H Rate Respiratory Rate [Anterior Bilateral Throughout] Respiratory Rate [denies] Blood Pressure O2 Sat by Pulse 95 100 95 Oximetry 10/26/19 10/26/19 10/26/19 20:31 20:45 20:50 Temperature Pulse Rate 102 H 108 H Pulse Rate [ 108 H Anterior Bilateral Throughout] Pulse Rate [ From Monitor] Respiratory 21 19 Rate Respiratory 26 H Rate [Anterior Bilateral Throughout] Respiratory Rate [denies] Blood Pressure O2 Sat by Pulse 95 95 Oximetry 10/26/19 10/26/19 10/26/19 20:52 21:01 21:15 Temperature Pulse Rate 106 H 109 H 104 H Pulse Rate [ Anterior Bilateral Throughout] Pulse Rate [ From Monitor] Respiratory 28 H 19 Rate Respiratory Rate [Anterior Bilateral Throughout] Respiratory Rate [denies] Blood Pressure 131/65 O2 Sat by Pulse 95 98 95 Oximetry 10/26/19 10/26/19 10/26/19 21:31 21:45 22:01 Temperature Pulse Rate 107 H 102 H 95 H Pulse Rate [ Anterior Bilateral Throughout] Pulse Rate [ From Monitor] Respiratory 28 H 28 H 28 H Rate Respiratory Rate [Anterior Bilateral Throughout] Respiratory Rate [denies] Blood Pressure O2 Sat by Pulse 94 94 94 Oximetry 10/26/19 10/26/19 10/26/19 22:15 22:31 22:45 Temperature Pulse Rate 92 H 88 89 Pulse Rate [ Anterior Bilateral Throughout] Pulse Rate [ From Monitor] Respiratory 28 H 28 H 28 H Rate Respiratory Rate [Anterior Bilateral Throughout] Respiratory Rate [denies] Blood Pressure O2 Sat by Pulse 93 93 92 Oximetry 10/26/19 10/26/19 10/26/19 22:57 23:01 23:15 Temperature Pulse Rate 93 H 94 H 92 H Pulse Rate [ Anterior Bilateral Throughout] Pulse Rate [ From Monitor] Respiratory 27 H 28 H 28 H Rate Respiratory Rate [Anterior Bilateral Throughout] Respiratory Rate [denies] Blood Pressure O2 Sat by Pulse 93 93 93 Oximetry 10/26/19 10/26/19 10/26/19 23:24 23:31 23:45 Temperature 101 F H Pulse Rate 89 123 H Pulse Rate [ Anterior Bilateral Throughout] Pulse Rate [ From Monitor] Respiratory 28 H 20 Rate Respiratory Rate [Anterior Bilateral Throughout] Respiratory Rate [denies] Blood Pressure O2 Sat by Pulse 93 91 Oximetry 10/27/19 10/27/19 10/27/19 00:00 00:01 00:15 Temperature Pulse Rate 131 H 146 H 132 H Pulse Rate [ Anterior Bilateral Throughout] Pulse Rate [ 131 H From Monitor] Respiratory 23 30 H 30 H Rate Respiratory Rate [Anterior Bilateral Throughout] Respiratory 23 Rate [denies] Blood Pressure O2 Sat by Pulse 90 99 Oximetry 10/27/19 10/27/19 10/27/19 00:31 00:45 01:01 Temperature Pulse Rate 120 H 115 H 99 H Pulse Rate [ Anterior Bilateral Throughout] Pulse Rate [ From Monitor] Respiratory 29 H 13 28 H Rate Respiratory Rate [Anterior Bilateral Throughout] Respiratory Rate [denies] Blood Pressure O2 Sat by Pulse 94 92 96 Oximetry 10/27/19 10/27/19 10/27/19 01:15 01:31 01:45 Temperature Pulse Rate 95 H 93 H 94 H Pulse Rate [ Anterior Bilateral Throughout] Pulse Rate [ From Monitor] Respiratory 28 H 28 H 28 H Rate Respiratory Rate [Anterior Bilateral Throughout] Respiratory Rate [denies] Blood Pressure O2 Sat by Pulse 97 97 97 Oximetry 10/27/19 10/27/19 10/27/19 02:01 02:15 02:31 Temperature Pulse Rate 94 H 94 H 97 H Pulse Rate [ Anterior Bilateral Throughout] Pulse Rate [ From Monitor] Respiratory 28 H 28 H 28 H Rate Respiratory Rate [Anterior Bilateral Throughout] Respiratory Rate [denies] Blood Pressure O2 Sat by Pulse 98 98 98 Oximetry 01/07/20 01/07/20 01/07/20 02:45 03:01 03:35 Temperature 99.8 F H Pulse Rate 92 H 90 Pulse Rate [ Anterior Bilateral Throughout] Pulse Rate [ From Monitor] Respiratory 28 H 28 H Rate Respiratory Rate [Anterior Bilateral Throughout] Respiratory Rate [denies] Blood Pressure O2 Sat by Pulse 97 98 Oximetry 10/27/19 10/27/19 10/27/19 03:36 04:00 04:01 Temperature Pulse Rate 89 95 H 92 H Pulse Rate [ Anterior Bilateral Throughout] Pulse Rate [ From Monitor] Respiratory 28 H Rate Respiratory Rate [Anterior Bilateral Throughout] Respiratory Rate [denies] Blood Pressure 153/79 153/79 O2 Sat by Pulse 97 98 Oximetry 10/27/19 10/27/19 10/27/19 04:20 05:01 06:01 Temperature Pulse Rate 96 H 89 Pulse Rate [ Anterior Bilateral Throughout] Pulse Rate [ 95 H From Monitor] Respiratory 28 H 28 H 28 H Rate Respiratory Rate [Anterior Bilateral Throughout] Respiratory Rate [denies] Blood Pressure 153/79 153/79 O2 Sat by Pulse 97 97 96 Oximetry 10/27/19 07:01 Temperature Pulse Rate 96 H Pulse Rate [ Anterior Bilateral Throughout] Pulse Rate [ From Monitor] Respiratory 28 H Rate Respiratory Rate [Anterior Bilateral Throughout] Respiratory Rate [denies] Blood Pressure 153/79 O2 Sat by Pulse 97 Oximetry Constitutional: asleep (but rousable, opens eyes to verbal stimuli), other (nods appropriately to questions, ETT at 24cm, no leak) Eyes: non-icteric ENT: oropharynx moist, other (small bowel feeding tube in nares) Neck: supple, no lymphadenopathy, no JVD, other (short neck, large circunferen ce) Effort: normal Ascultation: Bilateral: diminished breath sounds Cardiovascular: regular rate and rhythm, other (S1,S2) Gastrointestinal: normoactive bowel sounds, soft, non-tender, non-distended Integumentary: normal Extremities: no cyanosis, no edema, pink and warm, pulses normal Neurologic: non-focal exam, pupils equal and round Psychiatric: mood appropriate, affect normal CBC and BMP: 10/27/19 05:40 10/28/19 05:56 ABG, PT/INR, D-dimer: ABG POC ABG pH 7.501 (7.35-7.45) H 10/26/19 12:44 ABG pH 7.472 pH Units (7.350-7.450) H 10/27/19 03:30 POC ABG pCO2 54.7 (35-45) H 10/26/19 12:44 ABG pCO2 53.6 mm Hg 10/27/19 03:30 POC ABG pO2 69 (80-105) L 10/26/19 12:44 ABG pO2 88.6 mm Hg (80.0-90.0) 10/27/19 03:30 POC ABG HCO3 42.8 (22-26 mml/L) 10/26/19 12:44 POC ABG Total CO2 44 (23-27mmol/L) 10/26/19 12:44 POC ABG O2 Sat 95 10/26/19 12:44 ABG O2 Saturation 97.2 % (95.0-99.0) 10/27/19 03:30 Abnormal lab findings: Abnormal Labs 10/17/19 10/17/19 10/17/19 20:57 20:57 Unknown WBC 4.0 L RBC Hgb Hct MCV 78 L MCH 25 L RDW 24.7 H Lymph % (Auto) [place] % (Auto) Lymph # Seg Neutrophils % Seg Neuts % (Manual) 77.0 H Monocytes % (Manual) 9.0 H Lymphocytes # (Manual) 0.6 L POC ABG pH ABG pH POC ABG pCO2 POC ABG pO2 ABG pO2 ABG HCO3 ABG Base Excess ABG Hemoglobin Sodium Potassium 3.5 L Chloride Carbon Dioxide BUN Creatinine 0.6 L Glucose 147 H POC Glucose Calcium 7.9 L AST 57 H Total Creatine Kinase 857 H Albumin 3.0 L Influenza A (Rapid) Positive A 10/18/19 10/18/19 10/18/19 05:21 05:21 09:19 WBC 3.3 L RBC Hgb Hct MCV MCH 25 L RDW 24.3 H Lymph % (Auto) 12.5 L [place] % (Auto) 7.9 H Lymph # 0.4 L Seg Neutrophils % 78.6 H Seg Neuts % (Manual) Monocytes % (Manual) Lymphocytes # (Manual) POC ABG pH ABG pH POC ABG pCO2 POC ABG pO2 ABG pO2 131.3 H ABG HCO3 30.2 H ABG Base Excess 4.5 H ABG Hemoglobin 10.7 L Sodium Potassium Chloride Carbon Dioxide BUN Creatinine Glucose 167 H POC Glucose Calcium 8.3 L AST Total Creatine Kinase Albumin Influenza A (Rapid) 10/18/19 10/18/19 10/19/19 11:28 18:27 06:39 WBC RBC Hgb Hct MCV MCH RDW Lymph % (Auto) [place] % (Auto) Lymph # Seg Neutrophils % Seg Neuts % (Manual) Monocytes % (Manual) Lymphocytes # (Manual) POC ABG pH 7.461 H 7.487 H ABG pH POC ABG pCO2 53.4 H 52.8 H 51.7 H POC ABG pO2 70 L 71 L ABG pO2 ABG HCO3 ABG Base Excess ABG Hemoglobin Sodium Potassium Chloride Carbon Dioxide BUN Creatinine Glucose POC Glucose Calcium AST Total Creatine Kinase Albumin Influenza A (Rapid) 10/19/19 10/20/19 10/20/19 23:25 05:31 09:08 WBC RBC Hgb Hct MCV MCH RDW Lymph % (Auto) [place] % (Auto) Lymph # Seg Neutrophils % Seg Neuts % (Manual) Monocytes % (Manual) Lymphocytes # (Manual) POC ABG pH ABG pH POC ABG pCO2 POC ABG pO2 ABG pO2 ABG HCO3 ABG Base Excess ABG Hemoglobin Sodium Potassium Chloride Carbon Dioxide BUN Creatinine Glucose POC Glucose 203 H 144 H 163 H Calcium AST Total Creatine Kinase Albumin Influenza A (Rapid) 10/20/19 10/20/19 10/20/19 10:25 13:22 14:51 WBC RBC Hgb Hct MCV MCH RDW Lymph % (Auto) [place] % (Auto) Lymph # Seg Neutrophils % Seg Neuts % (Manual) Monocytes % (Manual) Lymphocytes # (Manual) POC ABG pH 7.632 H ABG pH POC ABG pCO2 POC ABG pO2 74 L ABG pO2 ABG HCO3 ABG Base Excess ABG Hemoglobin Sodium 147 H Potassium Chloride Carbon Dioxide 31 H BUN Creatinine 0.5 L Glucose 154 H POC Glucose 178 H Calcium 8.2 L AST Total Creatine Kinase Albumin Influenza A (Rapid) 10/20/19 10/20/19 10/20/19 14:51 17:16 21:30 WBC 11.2 H RBC Hgb Hct MCV 78 L MCH 25 L RDW 23.9 H Lymph % (Auto) [place] % (Auto) Lymph # Seg Neutrophils % Seg Neuts % (Manual) Monocytes % (Manual) Lymphocytes # (Manual) POC ABG pH ABG pH POC ABG pCO2 POC ABG pO2 ABG pO2 ABG HCO3 ABG Base Excess ABG Hemoglobin Sodium Potassium Chloride Carbon Dioxide BUN Creatinine Glucose POC Glucose 143 H 152 H Calcium AST Total Creatine Kinase Albumin Influenza A (Rapid) 10/20/19 10/21/19 10/21/19 22:52 05:55 08:27 WBC RBC Hgb Hct MCV MCH RDW Lymph % (Auto) [place] % (Auto) Lymph # Seg Neutrophils % Seg Neuts % (Manual) Monocytes % (Manual) Lymphocytes # (Manual) POC ABG pH ABG pH POC ABG pCO2 POC ABG pO2 ABG pO2 ABG HCO3 ABG Base Excess ABG Hemoglobin Sodium Potassium Chloride Carbon Dioxide BUN Creatinine Glucose POC Glucose 179 H 115 H 131 H Calcium AST Total Creatine Kinase Albumin Influenza A (Rapid) 10/21/19 10/21/19 10/21/19 11:52 16:23 23:38 WBC RBC Hgb Hct MCV MCH RDW Lymph % (Auto) [place] % (Auto) Lymph # Seg Neutrophils % Seg Neuts % (Manual) Monocytes % (Manual) Lymphocytes # (Manual) POC ABG pH ABG pH POC ABG pCO2 POC ABG pO2 ABG pO2 ABG HCO3 ABG Base Excess ABG Hemoglobin Sodium Potassium Chloride Carbon Dioxide BUN Creatinine Glucose POC Glucose 122 H 120 H 115 H Calcium AST Total Creatine Kinase Albumin Influenza A (Rapid) 10/22/19 10/22/19 10/22/19 00:35 05:19 06:10 WBC RBC Hgb Hct MCV MCH 25 L RDW 22.8 H Lymph % (Auto) [place] % (Auto) Lymph # Seg Neutrophils % Seg Neuts % (Manual) Monocytes % (Manual) Lymphocytes # (Manual) POC ABG pH ABG pH 7.520 H POC ABG pCO2 POC ABG pO2 ABG pO2 64.4 L ABG HCO3 36.8 H ABG Base Excess 12.6 H ABG Hemoglobin 10.4 L Sodium Potassium Chloride Carbon Dioxide BUN Creatinine Glucose POC Glucose 108 H Calcium AST Total Creatine Kinase Albumin Influenza A (Rapid) 10/22/19 10/24/19 10/25/19 15:40 05:49 04:20 WBC RBC Hgb Hct MCV MCH RDW Lymph % (Auto) [place] % (Auto) Lymph # Seg Neutrophils % Seg Neuts % (Manual) Monocytes % (Manual) Lymphocytes # (Manual) POC ABG pH 7.454 H ABG pH POC ABG pCO2 64.1 H 63.5 H POC ABG pO2 73 L ABG pO2 ABG HCO3 ABG Base Excess ABG Hemoglobin Sodium 136 L D Potassium Chloride 97.6 L Carbon Dioxide BUN 19 H Creatinine Glucose 125 H POC Glucose Calcium AST Total Creatine Kinase Albumin Influenza A (Rapid) 10/25/19 10/25/19 10/26/19 05:35 05:35 04:19 WBC RBC Hgb 10.0 L Hct MCV MCH 25 L RDW 22.0 H Lymph % (Auto) [place] % (Auto) Lymph # Seg Neutrophils % Seg Neuts % (Manual) Monocytes % (Manual) Lymphocytes # (Manual) POC ABG pH ABG pH POC ABG pCO2 66.1 H POC ABG pO2 75 L ABG pO2 ABG HCO3 ABG Base Excess ABG Hemoglobin Sodium 147 H D Potassium Chloride Carbon Dioxide 34 H D BUN 23 H Creatinine 0.5 L Glucose 184 H POC Glucose Calcium AST Total Creatine Kinase Albumin Influenza A (Rapid) 10/26/19 10/26/19 10/26/19 05:20 05:20 12:44 WBC RBC Hgb 9.5 L Hct MCV MCH 25 L RDW 22.3 H Lymph % (Auto) [place] % (Auto) Lymph # Seg Neutrophils % Seg Neuts % (Manual) Monocytes % (Manual) Lymphocytes # (Manual) POC ABG pH 7.501 H ABG pH POC ABG pCO2 54.7 H POC ABG pO2 69 L ABG pO2 ABG HCO3 ABG Base Excess ABG Hemoglobin Sodium 152 H Potassium Chloride Carbon Dioxide 33 H BUN 27 H Creatinine 0.6 L Glucose 135 H POC Glucose Calcium AST Total Creatine Kinase Albumin Influenza A (Rapid) 10/27/19 10/27/19 10/27/19 03:30 05:40 05:40 WBC RBC 3.62 L Hgb 9.4 L Hct 29.1 L MCV MCH 26 L RDW 21.7 H Lymph % (Auto) [place] % (Auto) Lymph # Seg Neutrophils % Seg Neuts % (Manual) Monocytes % (Manual) Lymphocytes # (Manual) POC ABG pH ABG pH 7.472 H POC ABG pCO2 POC ABG pO2 ABG pO2 ABG HCO3 38.2 H ABG Base Excess 13.3 H ABG Hemoglobin 6.5 L Sodium 149 H Potassium 3.3 L Chloride Carbon Dioxide 31 H BUN 25 H Creatinine 0.5 L Glucose 142 H POC Glucose Calcium 8.2 L AST Total Creatine Kinase Albumin Influenza A (Rapid) Chest x-ray: image reviewed Allied health notes reviewed: RT
[2019-10-27] MEDS: IPRATROPIUM/ALBUTEROL SULFATE 3 ML AMPUL.NEB IH SCH ×3 (08:01→21:14)
[2019-10-27] MEDS: POTASSIUM CHLORIDE 20 MEQ PACKET FEEDTUBE SCH ×2 (08:49→14:01)
[2019-10-27] MEDS: ACETAMINOPHEN 325 MG/10.15 ML ORAL LIQD UNIT DOSE PO PRN ×3 (08:49→23:32)
[2019-10-27] MEDS: BUMETANIDE 1 MG/4 ML INJ IV SCH (09:37)
[2019-10-27] MEDS: LANSOPRAZOLE 30 MG SOLUTAB FEEDTUBE SCH (09:37)
--- NOTE | 2019-10-27 11:29 | Progress Note ---
Assessment and Plan Assessment and plan: Acute hypoxemic respiratory failure. The patient failed BiPAP and required intubation on 10/23/2019. Patient currently on AC mode ventilation. Pulmonary following. Sepsis. Etiology secondary to pneumonia/influenza A. Continue antibiotics per ID. Follow-up cultures. Influenza A. Continue Tamiflu per ID. Bilateral pneumonia. Continue antibiotics per ID recommendations. Follow-up chest x-ray. Acute on chronic diastolic heart failure. Echocardiogram revealed The left ventricular size is mildly dilated, mild to moderate concentric LVH, est EF 40- 45%, left atrium is mildly dilated, trace MR, mild TR, mild to moderate Pulmonary hypertension, RVSP is calculated at 42 mmHg. Obesity hypoventilation syndrome/DEAN. Outpatient evaluation for sleep apnea Morbid obesity. Weight loss and life style modifications on discharge. May need surgical bariatric intervention The high probability of a clinically significant, sudden or life-threatening deterioration of the [respiratory, cardiovascular,] system(s) required my full and direct attention, intervention and personal management. The aggregate critical care time was [32] minutes without overlap. Time includes spent on; [x] Data Review and interpretation [x] Patient assessment and monitoring of vital signs [x] Documentation [x] Medication orders and management History Interval history: Patient is a 49 yo woman with a history of severe obesity BMI 93.6 (579 lbs), hypertension, lymphedema, functional quadriplegia and DEAN non compliant with CPAP who admitted to [facility] ED on 10/18/19 with Respiratory failure wtih pulse ox in the 50s. She was treated with BIPAP up until 10/23/2019 around 5pm when she was intubated by Anesthesia using guidescope. Trach aspirate growing GNR (still pending) and iv zosyn started then switched to Cefepime by ID. Hospitalist Physical - Constitutional Vitals: Temp Pulse Resp BP Pulse Ox 101.2 F H 107 H 28 H 153/79 96 10/27/19 08:00 10/27/19 11:01 10/27/19 11:01 10/27/19 11:01 10/27/19 11:01 General appearance: Present: obese, other (Intubated on mechanical ventilation). Absent: mild distress - EENT Eyes: Present: PERRL, EOM intact ENT: hearing intact, clear oral mucosa, dentition normal - Neck Neck: Present: supple, normal ROM - Respiratory Respiratory effort: normal Respiratory: bilateral: CTA - Cardiovascular Rhythm: regular Heart Sounds: Present: S1 & S2. Absent: gallop, rub - Extremities Extremities: no ischemia, No edema, Full ROM - Abdominal General gastrointestinal: soft, non-tender, non-distended, normal bowel sounds - Integumentary Integumentary: Present: clear, warm, dry - Neurologic Neurologic: CNII-XII intact, moves all extremities Results - Labs CBC & Chem 7: 10/27/19 05:40 10/27/19 05:40 Labs: Laboratory Last Values WBC 8.5 K/mm3 (4.5-11.0) 10/27/19 05:40 RBC 3.62 M/mm3 (3.65-5.03) L 10/27/19 05:40 Hgb 9.4 gm/dl (10.1-14.3) L 10/27/19 05:40 Hct 29.1 % (30.3-42.9) L 10/27/19 05:40 MCV 80 fl (79-97) 10/27/19 05:40 MCH 26 pg (28-32) L 10/27/19 05:40 MCHC 32 % (30-34) 10/27/19 05:40 RDW 21.7 % (13.2-15.2) H 10/27/19 05:40 Plt Count 288 K/mm3 (140-440) 10/27/19 05:40 Lymph % (Auto) 12.5 % (13.4-35.0) L 10/18/19 05:21 [place] % (Auto) 7.9 % (0.0-7.3) H 10/18/19 05:21 Eos % (Auto) 0.0 % (0.0-4.3) 10/18/19 05:21 Baso % (Auto) 1.0 % (0.0-1.8) 10/18/19 05:21 Lymph # 0.4 K/mm3 (1.2-5.4) L 10/18/19 05:21 [place] # 0.3 K/mm3 (0.0-0.8) 10/18/19 05:21 Eos # 0.0 K/mm3 (0.0-0.4) 10/18/19 05:21 Baso # 0.0 K/mm3 (0.0-0.1) 10/18/19 05:21 Add Manual Diff Complete 10/17/19 20:57 Total Counted 100 10/17/19 20:57 Seg Neutrophils % 78.6 % (40.0-70.0) H 10/18/19 05:21 Seg Neuts % (Manual) 77.0 % (40.0-70.0) H 10/17/19 20:57 Band Neutrophils % 0 % 10/17/19 20:57 Lymphocytes % (Manual) 14.0 % (13.4-35.0) 10/17/19 20:57 Reactive Lymphs % (Man) 0 % 10/17/19 20:57 Monocytes % (Manual) 9.0 % (0.0-7.3) H 10/17/19 20:57 Eosinophils % (Manual) 0 % (0.0-4.3) 10/17/19 20:57 Basophils % (Manual) 0 % (0.0-1.8) 10/17/19 20:57 Metamyelocytes % 0 % 10/17/19 20:57 Myelocytes % 0 % 10/17/19 20:57 Promyelocytes % 0 % 10/17/19 20:57 Blast Cells % 0 % 10/17/19 20:57 Nucleated RBC % Not Reportable 10/17/19 20:57 Seg Neutrophils # 2.6 K/mm3 (1.8-7.7) 10/18/19 05:21 Seg Neutrophils # Man 3.1 K/mm3 (1.8-7.7) 10/17/19 20:57 Band Neutrophils # 0.0 K/mm3 10/17/19 20:57 Lymphocytes # (Manual) 0.6 K/mm3 (1.2-5.4) L 10/17/19 20:57 Abs React Lymphs (Man) 0.0 K/mm3 10/17/19 20:57 Monocytes # (Manual) 0.4 K/mm3 (0.0-0.8) 10/17/19 20:57 Eosinophils # (Manual) 0.0 K/mm3 (0.0-0.4) 10/17/19 20:57 Basophils # (Manual) 0.0 K/mm3 (0.0-0.1) 10/17/19 20:57 Metamyelocytes # 0.0 K/mm3 10/17/19 20:57 Myelocytes # 0.0 K/mm3 10/17/19 20:57 Promyelocytes # 0.0 K/mm3 10/17/19 20:57 Blast Cells # 0.0 K/mm3 10/17/19 20:57 WBC Morphology Not Reportable 10/17/19 20:57 Hypersegmented Neuts Not Reportable 10/17/19 20:57 Hyposegmented Neuts Not Reportable 10/17/19 20:57 Hypogranular Neuts Not Reportable 10/17/19 20:57 Smudge Cells Not Reportable 10/17/19 20:57 Toxic Granulation Not Reportable 10/17/19 20:57 Toxic Vacuolation Not Reportable 10/17/19 20:57 Dohle Bodies Not Reportable 10/17/19 20:57 Pelger-Huet Anomaly Not Reportable 10/17/19 20:57 Krista Rods Not Reportable 10/17/19 20:57 Platelet Estimate Not Reportable 10/17/19 20:57 Clumped Platelets Not Reportable 10/17/19 20:57 Plt Clumps, EDTA Not Reportable 10/17/19 20:57 Large Platelets Not Reportable 10/17/19 20:57 Giant Platelets Not Reportable 10/17/19 20:57 Platelet Satelliting Not Reportable 10/17/19 20:57 Plt Morphology Comment Not Reportable 10/17/19 20:57 RBC Morphology Not Reportable 10/17/19 20:57 Dimorphic RBCs Not Reportable 10/17/19 20:57 Polychromasia Not Reportable 10/17/19 20:57 Hypochromasia 1+ 10/17/19 20:57 Poikilocytosis Not Reportable 10/17/19 20:57 Anisocytosis 2+ 10/17/19 20:57 Microcytosis Not Reportable 10/17/19 20:57 Macrocytosis Not Reportable 10/17/19 20:57 Spherocytes Not Reportable 10/17/19 20:57 Pappenheimer Bodies Not Reportable 10/17/19 20:57 Sickle Cells Not Reportable 10/17/19 20:57 Target Cells Not Reportable 10/17/19 20:57 Tear Drop Cells Not Reportable 10/17/19 20:57 Ovalocytes Not Reportable 10/17/19 20:57 Helmet Cells Not Reportable 10/17/19 20:57 [place] Bodies Not Reportable 10/17/19 20:57 [place] Rings Not Reportable 10/17/19 20:57 Innis Cells Not Reportable 10/17/19 20:57 Bite Cells Not Reportable 10/17/19 20:57 Crenated Cell Not Reportable 10/17/19 20:57 Elliptocytes Not Reportable 10/17/19 20:57 Acanthocytes (Spur) Not Reportable 10/17/19 20:57 Rouleaux Not Reportable 10/17/19 20:57 Hemoglobin C Crystals Not Reportable 10/17/19 20:57 Schistocytes Not Reportable 10/17/19 20:57 Malaria parasites Not Reportable 10/17/19 20:57 Alejandro Bodies Not Reportable 10/17/19 20:57 Hem Pathologist Commnt No 10/17/19 20:57 POC ABG pH 7.501 (7.35-7.45) H 10/26/19 12:44 ABG pH 7.472 pH Units (7.350-7.450) H 10/27/19 03:30 POC ABG pCO2 54.7 (35-45) H 10/26/19 12:44 ABG pCO2 53.6 mm Hg 10/27/19 03:30 POC ABG pO2 69 (80-105) L 10/26/19 12:44 ABG pO2 88.6 mm Hg (80.0-90.0) 10/27/19 03:30 POC ABG HCO3 42.8 (22-26 mml/L) 10/26/19 12:44 ABG HCO3 38.2 mmol/L (20.0-26.0) H 10/27/19 03:30 POC ABG Total CO2 44 (23-27mmol/L) 10/26/19 12:44 POC ABG O2 Sat 95 10/26/19 12:44 ABG O2 Saturation 97.2 % (95.0-99.0) 10/27/19 03:30 ABG O2 Content 8.9 (0.0-44) 10/27/19 03:30 POC ABG Base Excess 20 ((-2) - (+3)mmol/L) 10/26/19 12:44 ABG Base Excess 13.3 mmol/L (-2.0-3.0) H 10/27/19 03:30 ABG Hemoglobin 6.5 gm/dl (12.0-16.0) L 10/27/19 03:30 ABG Carboxyhemoglobin 1.6 % (0.0-5.0) 10/27/19 03:30 ABG Methemoglobin 0.4 % (0.0-1.5) 10/27/19 03:30 Oxyhemoglobin 95.3 % (95.0-99.0) 10/27/19 03:30 FiO2 28 % 10/27/19 03:30 Sodium 149 mmol/L (137-145) H 10/27/19 05:40 Potassium 3.3 mmol/L (3.6-5.0) L 10/27/19 05:40 Chloride 102.5 mmol/L (98-107) 10/27/19 05:40 Carbon Dioxide 31 mmol/L (22-30) H 10/27/19 05:40 Anion Gap 19 mmol/L 10/27/19 05:40 BUN 25 mg/dL (7-17) H 10/27/19 05:40 Creatinine 0.5 mg/dL (0.7-1.2) L 10/27/19 05:40 Estimated GFR > 60 ml/min 10/27/19 05:40 BUN/Creatinine Ratio 50 % 10/27/19 05:40 Glucose 142 mg/dL (65-100) H 10/27/19 05:40 POC Glucose 108 (70-105) H 10/22/19 05:19 Calcium 8.2 mg/dL (8.4-10.2) L 10/27/19 05:40 Total Bilirubin 0.20 mg/dL (0.1-1.2) 10/17/19 20:57 AST 57 units/L (5-40) H 10/17/19 20:57 ALT 22 units/L (7-56) 10/17/19 20:57 Alkaline Phosphatase 67 units/L (35-129) 10/17/19 20:57 Total Creatine Kinase 857 units/L (30-135) H 10/17/19 20:57 CK-MB (CK-2) 2.6 ng/mL (0.0-4.0) 10/17/19 20:57 CK-MB (CK-2) Rel Index 0.3 (0-4) 10/17/19 20:57 Troponin T < 0.010 ng/mL (0.00-0.029) 10/17/19 20:57 NT-Pro-B Natriuret Pep 317.6 pg/mL (0-450) 10/17/19 20:57 Total Protein 7.1 g/dL (6.3-8.2) 10/17/19 20:57 Albumin 3.0 g/dL (3.9-5) L 10/17/19 20:57 Albumin/Globulin Ratio 0.7 % 10/17/19 20:57 Triglycerides 279 mg/dL (2-149) H 10/27/19 05:40 Procalcitonin 0.06 ng/mL (<0.15) 10/20/19 14:51 Influenza A (Rapid) Positive (Negative) A 10/17/19 Unknown Influenza B (Rapid) Negative (Negative) 10/17/19 Unknown Active Medications - Current Medications Current Medications: Generic Name Dose Route Start Last Admin Trade Name Freq PRN Reason Stop Dose Admin Acetaminophen 650 mg 10/27/19 08:38 10/27/19 08:49 Tylenol PO 650 mg Q4H PRN Administration Non Cardiac Pain or Temp>100.5 Albuterol 2.5 mg 10/17/19 22:47 10/19/19 14:34 Proventil IH 2.5 mg Q3HRT PRN Administration Shortness Of Breath Albuterol/Ipratropium 1 ampul 10/19/19 20:00 10/27/19 08:01 Duoneb *Not For Prn Use* IH 1 ampul TIDRT EDI Administration Lipase/Protease/Amylase 1 each 10/24/19 11:54 Pancreyu Irizarry 10,500 Unit FEEDTUBE PRN PRN For Clogged Feeding Tube Bumetanide 1 mg 10/26/19 10:00 10/27/19 09:37 Bumex IV 10/28/19 10:01 1 mg DAILY EDI Administration Fentanyl 50 mcg 10/23/19 17:29 Sublimaze IV Q10MIN PRN ANALGESIA Heparin Sodium (Porcine) 5,000 unit 10/18/19 06:00 10/27/19 05:40 Heparin SUB-Q 5,000 unit Q8HR EDI Administration Hydrophilic Ointment 1 applic 10/23/19 17:29 10/27/19 00:29 Vaseline Lip Therapy TP 1 applic Q2HR PRN Administration Dry Lips Fentanyl Citrate 2,000 mcg in 100 mls @ 13.25 mls/hr 10/23/19 18:00 10/27/19 10:57 Fentanyl Drip Premix IV 3 mcg/kg/hr TITR EDI 39.75 mls/hr Administration Protocol 1 MCG/KG/HR Propofol 1,000 mg in 100 mls @ 7.95 mls/hr 10/23/19 18:00 10/27/19 10:57 Diprivan 10 Mg/Ml IV 20 mcg/kg/min TITR EDI 31.8 mls/hr Administration Protocol 5 MCG/KG/MIN Cefepime HCl 2 gm in 100 mls @ 200 mls/hr 10/24/19 13:00 10/27/19 05:27 Cefepime/Ns 2 Gm/100 Ml IV 200 mls/hr Q8H EDI Administration Protocol Labetalol HCl 10 mg 10/24/19 14:32 Labetalol IV Q4H PRN Blood Pressure Lansoprazole 30 mg 10/26/19 10:00 10/27/19 09:37 Prevacid Solutab FEEDTUBE 30 mg QDAY EDI Administration Morphine Sulfate 2 mg 10/17/19 22:47 Morphine IV Q4H PRN Pain, Moderate (4-6) Multi-Ingred Cream/Lotion/Oil/Oint 1 applic 10/23/19 17:29 Artificial Tears Ophth Oint OU Q4HR PRN Dry Eye(s) Ondansetron HCl 4 mg 10/17/19 22:47 Zofran IV Q8H PRN Nausea And Vomiting Potassium Chloride 40 meq 10/27/19 09:00 10/27/19 08:49 Potassium Chloride FEEDTUBE 10/27/19 13:01 40 meq Q4H EDI Administration Simple Syrup 15 ml 10/24/19 11:54 Simple Syrup FEEDTUBE PRN PRN Hypoglycemia Simple Syrup 30 ml 10/24/19 11:54 Simple Syrup FEEDTUBE PRN PRN Hypoglycemia Sodium Bicarbonate 325 mg 10/24/19 11:54 Sodium Bicarbonate FEEDTUBE PRN PRN For Clogged Feeding Tube Sodium Chloride 10 ml 10/18/19 10:00 10/27/19 09:37 Sodium Chloride Flush Syringe 10 Ml IV 10 ml BID EDI Administration Sodium Chloride 10 ml 10/17/19 22:47 Sodium Chloride Flush Syringe 10 Ml IV PRN PRN LINE FLUSH Nutrition/Malnutrition Assess - Dietary Evaluation Nutrition/Malnutrition Findings: Nutrition Notes Start: 10/19/19 13:20 Freq: Status: Active Protocol: Document 10/26/19 11:35 LM (Rec: 10/26/19 11:46 LM [email or web address]) Nutrition Notes Initial or Follow up Reassessment Current Diagnosis Hypertension,Respiratory Failure Other Pertinent Diagnosis Influlenza A pneumonia, lymphedema, pulmonary edema, SOB, DVT Current Diet Vital AF 1.2 at 65 ml/hr Labs/Tests Na 152 BUN 27 Cr 0.6 BG 135 Pertinent Medications Lasix Propofol (210 kcal) Height 5 ft 6 in Weight 236.8 kg [place] Body Weight (kg) 59.09 BMI 84.2 Weight change and time frame Wt change noted. Possibly due to fluid. Subjective/Other Information Vital at goal. Will increase flush for hypernatremia. Percent of energy/protein needs met: 99%/79% Burn Absent Trauma Absent Current % PO Negligible #2 Nutrition Diagnosis Inadequate oral intake Diagnosis Progress(for reassessment Continues documentation) Is patient on ventilator? Yes Is Patient Ambulatory and/or Out of Bed No REE-([facility]-confined to bed) 3619.464 Kcal/Kg value to use for calculation 8 Approximate Energy Requirements Using 1894 kcal/Kg Calculation Used for Recommendations Kcal/kg Additional Notes Protein needs: 148g (up to 2. 5g/kg IBW 59 kg) Fluid: 1 ml/kcal Nutrition Intervention Change Diet Order: TF Nutrition Support: Vital AF 1.2 at 65 ml/hr Flush 150 ml q4h for hypernatremia Flush 100 ml q4h once hypernatremia resolves Kcal 1,872 Protein (gm) 117 Fluid (mL) 1,265 Goal #1 Meet at least 75% of energy and protein needs Anticipated Discharge Needs: unable to determine at this time Follow-Up By: 10/30/19 Additional Comments F/U for TF tolerance, Na lab
--- NOTE | 2019-10-27 15:03 | Progress Note ---
Assessment and Plan Cultures: 10/17/2019 blood culture: No growth 10/17/2019 influenza A: Positive 10/23/2019 Resp culture: GNR 10/25/2019 tracheal aspirate: GNR 10/25/2019 blood culture: no growth thus far A/P: 49-year-old female with morbid obesity, hypertension, lymphedema, functional quadriplegia and sleep apnea admitted with: #Influenza A with acute respiratory failure: completed high dose prolonged Tamiflu course. Intubated, on mechanical ventilation. #Superimposed pneumonia: resp culture with GNR, patient on Cefepime. #Extreme morbid obesity: BMI is 94.3. Recs: continue IV Cefepime 2 gm q8 hrs Follow up culture results Henny Nayak MD, FACP [facility] [place] [facility] ([facility]) C: [phone] O: [phone] F: [phone] Subjective Date of service: 10/27/19 Principal diagnosis: acute respiratory distress Interval history: Fever +. Remains intubated, on the vent. Mother at bedside. Objective - Exam Narrative Exam: Physical Exam: Constitutional: sedated, intubated. Morbidly obese Head, Ears, Nose: Normocephalic, atraumatic. External ears, nose normal Eyes: Conjunctivae/corneas clear. No icterus. No ptosis. Neck: intubated Oral: intubated Cardiovascular: S1, S2 normal. Respiratory: Good air entry, clear to auscultation bilaterally GI: Soft, non-tender; bowel sounds normal. No peritoneal signs Musculoskeletal: No pedal edema, no cyanosis. Skin: No rash or abscess Hem/Lymphatic: No palpable cervical or supraclavicular nodes. No lymphangitis Psych: no agitation Neurological: sedated, intubated, on vent - Constitutional Vitals: Vital Signs Temp Pulse Resp BP Pulse Ox 100.5 F H 110 H 28 H 153/79 97 10/27/19 12:00 10/27/19 14:34 10/27/19 14:34 10/27/19 14:01 10/27/19 14:01 Temperature -Last 24 Hours Temperature 100.5 F Temperature 101.2 F Temperature 99.8 F Temperature 101 F Temperature 99.9 F Temperature 100.8 F - Labs CBC & Chem 7: 10/27/19 05:40 10/27/19 05:40 Labs: Abnormal lab results 10/27/19 10/27/19 10/27/19 Range/Units 03:30 05:40 05:40 RBC 3.62 L (3.65-5.03) M/mm3 Hgb 9.4 L (10.1-14.3) gm/dl Hct 29.1 L (30.3-42.9) % MCH 26 L (28-32) pg RDW 21.7 H (13.2-15.2) % ABG pH 7.472 H (7.350-7.450) pH Units ABG HCO3 38.2 H (20.0-26.0) mmol/L ABG Base Excess 13.3 H (-2.0-3.0) mmol/L ABG Hemoglobin 6.5 L (12.0-16.0) gm/dl Sodium 149 H (137-145) mmol/L Potassium 3.3 L (3.6-5.0) mmol/L Carbon Dioxide 31 H (22-30) mmol/L BUN 25 H (7-17) mg/dL Creatinine 0.5 L (0.7-1.2) mg/dL Glucose 142 H (65-100) mg/dL Calcium 8.2 L (8.4-10.2) mg/dL Triglycerides (2-149) mg/dL 10/27/19 Range/Units 05:40 RBC (3.65-5.03) M/mm3 Hgb (10.1-14.3) gm/dl Hct (30.3-42.9) % MCH (28-32) pg RDW (13.2-15.2) % ABG pH (7.350-7.450) pH Units ABG HCO3 (20.0-26.0) mmol/L ABG Base Excess (-2.0-3.0) mmol/L ABG Hemoglobin (12.0-16.0) gm/dl Sodium (137-145) mmol/L Potassium (3.6-5.0) mmol/L Carbon Dioxide (22-30) mmol/L BUN (7-17) mg/dL Creatinine (0.7-1.2) mg/dL Glucose (65-100) mg/dL Calcium (8.4-10.2) mg/dL Triglycerides 279 H (2-149) mg/dL - Imaging and cardiology Chest x-ray: report reviewed, image reviewed (b/l diffuse opacities)
[2019-10-28] MEDS: fentaNYL DRIP Premix 2,000 MCG/100 ML BAG IV SCH ×9 (01:45→23:03)
[2019-10-28] MEDS: PROPOFOL 1,000 MG/100 ML BOTTLE IV SCH ×3 (02:40→09:37)
--- NOTE | 2019-10-28 04:50 | XRay Report ---
CHEST 1 VIEW, 10/28/2019 1:50 AM CLINICAL INFORMATION/INDICATION: Respiratory failure COMPARISON: Chest radiograph, 10/27/2019 at 2:52 AM FINDINGS: SUPPORT DEVICES: Endotracheal tube remains in stable position. HEART: Cardiac silhouette is not well visualized secondary to lung disease. LUNGS/PLEURA: Diffuse bilateral pulmonary opacities have not significantly changed. No pneumothorax i s visualized. ADDITIONAL FINDINGS: No additional acute findings. IMPRESSION: 1. Stable bilateral pulmonary opacities. Signer Name: Kacie Willard MD Signed: 10/28/2019 4:46 AM Workstation Name: [id number]
[2019-10-28] MEDS: HEPARIN 5,000 UNIT/1 ML VIAL SUB-Q SCH ×3 (05:19→21:47)
[2019-10-28] MEDS: CEFEPIME/NS 2 GM/100 ML 2 GM/100 ML BAG IV SCH ×3 (05:19→20:22)
[2019-10-28 06:44] LABS: BUN/Creatinine Ratio 43; Blood Urea Nitrogen 17 mg/dL (7-17); Calcium 8.1 mg/dL (8.4-10.2); Hemolysis Index 3
[2019-10-28] MEDS: IPRATROPIUM/ALBUTEROL SULFATE 3 ML AMPUL.NEB IH SCH ×3 (07:17→20:26)
[2019-10-28] MEDS: BUMETANIDE 1 MG/4 ML INJ IV SCH (09:38)
[2019-10-28] MEDS: LANSOPRAZOLE 30 MG SOLUTAB FEEDTUBE SCH (09:38)
--- NOTE | 2019-10-28 09:39 | Progress Note ---
Assessment and Plan Cultures: 10/17/2019 blood culture: No growth 10/17/2019 influenza A: Positive 10/23/2019 Resp culture: GNR 10/25/2019 tracheal aspirate: GNR 10/25/2019 blood culture: no growth thus far A/P: 49-year-old female with morbid obesity, hypertension, lymphedema, functional quadriplegia and sleep apnea admitted with: #Influenza A with acute respiratory failure: completed high dose prolonged Tamiflu course. Intubated, on mechanical ventilation. #Superimposed pneumonia: resp culture with GNR, patient on Cefepime. #Extreme morbid obesity: BMI is 94.3. ?Cefepime 2 gm q8 hrs may not be adequate, but higher doses could increase risk of seizures. Recs: continue IV Cefepime 2 gm q8 hrs we are still awaiting ID and susceptibility data for the GNR from respiratory cultures Henny Nayak MD, FACP [facility] ([facility]) C: [phone] O: [phone] F: [phone] Subjective Date of service: 10/28/19 Principal diagnosis: acute respiratory distress Interval history: Fever +. Patient remains intubated, on the vent. Patient's mother and daughter at bedside, all questions answered. Objective - Exam Narrative Exam: Physical Exam: Constitutional: sedated, intubated. Morbidly obese Head, Ears, Nose: Normocephalic, atraumatic. External ears, nose normal Eyes: Conjunctivae/corneas clear. No icterus. No ptosis. Neck: intubated Oral: intubated Cardiovascular: S1, S2 normal. Respiratory: Good air entry, clear to auscultation bilaterally GI: Soft, non-tender; bowel sounds normal. No peritoneal signs Musculoskeletal: No pedal edema, no cyanosis. Skin: No rash or abscess Hem/Lymphatic: No palpable cervical or supraclavicular nodes. No lymphangitis Psych: no agitation Neurological: sedated, intubated, on vent - Constitutional Vitals: Vital Signs Temp Pulse Resp BP Pulse Ox 99.1 F 111 H 28 H 130/68 94 10/28/19 08:00 10/28/19 09:00 10/28/19 09:00 10/28/19 09:00 10/28/19 09:00 Temperature -Last 24 Hours Temperature 99.1 F Temperature 100.4 F Temperature 101.0 F Temperature 100.1 F Temperature 100.0 F Temperature 100 F Temperature 100.5 F - Labs CBC & Chem 7: 10/27/19 05:40 10/28/19 05:56 Labs: Abnormal lab results 10/28/19 10/28/19 Range/Units 05:19 05:56 POC ABG pH 7.489 H (7.35-7.45) POC ABG pCO2 51.0 H (35-45) POC ABG pO2 71 L (80-105) Sodium 153 H (137-145) mmol/L Carbon Dioxide 31 H (22-30) mmol/L Creatinine 0.4 L (0.7-1.2) mg/dL Glucose 111 H (65-100) mg/dL Calcium 8.1 L (8.4-10.2) mg/dL - Imaging and cardiology Chest x-ray: report reviewed, image reviewed (stable b/l diffuse airspace opacities)
--- NOTE | 2019-10-28 09:44 | Progress Note ---
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 Functional quadriplegia h/o HTN -Decrease PEEP to 10 and monitor -Baeza-cultures for fevers, symptom management/cooling measures -Has completed anti-viral therapy, on antibiotics per ID service -Continue with diuresis while monitoring renal function, electrolytes - she is being evaluated daily and then a decision is made on administration of diuretics -Free water flushes and hypotonic solution for hypernatremia -Continue with sedation, with daily SAT -Continue mobility protocol, off loading for pressure ulcer prevention- high risk patient -Specialty bed -VAP bundle addresed -Aspiration precautions, HOB>40 degrees -Wean FIO2 for O2 sats 88-90%. Once FIO2 to down to 50% with adequate oxygenation, will start weaning PEEP -Daily assessment for readiness to wean -Oxygen restrictive strategies -Titrate sedation to RASS -1 -Bronchodilators per protocol -Start tube feedings via the small bowel feeding tube -Continue airborne isolation -Continue with VTE prophylaxis -Continue stress ulcer prophylaxis - Continue with Accuchecks with glycemic control for SSI (While critically ill target blood glucose of 140-180 mg/dL; avoid hypoglycemia) - Continue to monitor hemodynamics closely - Continue to monitor electrolyte profile closely and replete as indicated -Chronic home medications, resume as clinically indicated -Blanchard catheter in this critically ill patient, with poor urine output, requiring accurate intake and output monitoring. She acutely de-saturates with minimal movement -PT/OT -Weight loss and life style modifications on discharge. May need surgical bariatric intervention( discussed this with her and her sister- patient currently does not have health insurance but has applied) -Out patient evaluation for sleep apnea Discussed with RT and RN Updated her mother and daughter who are at the bedside CONDITION: CRITICAL PROGNOSIS: GUARDED CODE STATUS: FULL CODE The high probability of a clinically significant, sudden or life-threatening deterioration of the [respiratory, cardiovascular,] system(s) required my full and direct attention, intervention and personal management. The aggregate critical care time was [35] minutes without overlap. Time includes spent on; [x] Data Review and interpretation [x] Patient assessment and monitoring of vital signs [x] Documentation [x] Medication orders and management Subjective Date of service: 10/28/19 Principal diagnosis: acute respiratory distress Interval history: Patient is seen today for: acute hypoxic-hypercapnic respiratory failure on MVS; influenza infection; extreme obesity with probable DEAN Seen and examined at bedside; 24hour events reviewed; nursing and respiratory care staff consulted; no adverse overnight events reported to me; Patient is on MVS, ETT in place to MVS FIO2 50%, PEEP 10- airway pressures are within normal. On fentanyl and propofol- comfortable Left radial arterial line, RUExt midline, Blanchard catheter Vitals, labs, medications, chart and imaging reviewed. Discussed with RT and RN Fevers Objective Vital Signs - 12hr 10/27/19 10/27/19 10/27/19 22:01 23:00 23:45 Temperature Pulse Rate 117 H 109 H 117 H Pulse Rate [ Anterior Bilateral Throughout] Pulse Rate [ Bilateral] Pulse Rate [ From Monitor] Respiratory 28 H 28 H Rate Respiratory Rate [Anterior Bilateral Throughout] Respiratory Rate [Bilateral ] Blood Pressure 153/79 153/79 O2 Sat by Pulse 97 96 Oximetry 10/28/19 10/28/19 10/28/19 00:00 00:03 00:37 Temperature 101.0 F H Pulse Rate 95 H 95 H 87 Pulse Rate [ Anterior Bilateral Throughout] Pulse Rate [ Bilateral] Pulse Rate [ 95 H From Monitor] Respiratory 28 H 28 H Rate Respiratory Rate [Anterior Bilateral Throughout] Respiratory Rate [Bilateral ] Blood Pressure 130/54 130/54 126/55 O2 Sat by Pulse 96 96 96 Oximetry 10/28/19 10/28/19 10/28/19 01:00 02:00 03:00 Temperature Pulse Rate 85 86 94 H Pulse Rate [ Anterior Bilateral Throughout] Pulse Rate [ Bilateral] Pulse Rate [ From Monitor] Respiratory 28 H 28 H 28 H Rate Respiratory Rate [Anterior Bilateral Throughout] Respiratory Rate [Bilateral ] Blood Pressure 120/52 119/56 140/61 O2 Sat by Pulse 95 95 96 Oximetry 10/28/19 10/28/19 10/28/19 04:00 04:45 05:01 Temperature 100.4 F H Pulse Rate 89 79 90 Pulse Rate [ Anterior Bilateral Throughout] Pulse Rate [ Bilateral] Pulse Rate [ 89 From Monitor] Respiratory 28 H 28 H Rate Respiratory Rate [Anterior Bilateral Throughout] Respiratory Rate [Bilateral ] Blood Pressure 128/60 128/56 118/58 O2 Sat by Pulse 95 95 96 Oximetry 10/28/19 10/28/19 10/28/19 06:01 07:00 07:19 Temperature Pulse Rate 100 H 102 H Pulse Rate [ 99 H Anterior Bilateral Throughout] Pulse Rate [ 100 H Bilateral] Pulse Rate [ From Monitor] Respiratory 25 H 28 H Rate Respiratory 28 H Rate [Anterior Bilateral Throughout] Respiratory 28 H Rate [Bilateral ] Blood Pressure 123/62 115/56 O2 Sat by Pulse 96 97 Oximetry 10/28/19 10/28/19 10/28/19 08:00 08:14 09:00 Temperature 99.1 F Pulse Rate 100 H 100 H 111 H Pulse Rate [ Anterior Bilateral Throughout] Pulse Rate [ Bilateral] Pulse Rate [ 100 H From Monitor] Respiratory 28 H 28 H Rate Respiratory Rate [Anterior Bilateral Throughout] Respiratory Rate [Bilateral ] Blood Pressure 130/59 123/62 130/68 O2 Sat by Pulse 95 96 94 Oximetry Constitutional: asleep (but rousable, opens eyes to verbal stimuli), other (nods appropriately to questions, ETT at 24cm, no leak) Eyes: non-icteric ENT: oropharynx moist, other (small bowel feeding tube in nares) Neck: supple, no lymphadenopathy, no JVD, other (short neck, large circunference) Effort: normal Ascultation: Bilateral: diminished breath sounds Cardiovascular: regular rate and rhythm, other (S1,S2) Gastrointestinal: normoactive bowel sounds, soft, non-tender, non-distended Integumentary: normal Extremities: no cyanosis, no edema, pink and warm, pulses normal Neurologic: non-focal exam, pupils equal and round Psychiatric: mood appropriate, affect normal CBC and BMP: 10/27/19 05:40 10/31/19 08:02 ABG, PT/INR, D-dimer: ABG POC ABG pH 7.489 (7.35-7.45) H 10/28/19 05:19 ABG pH 7.472 pH Units (7.350-7.450) H 10/27/19 03:30 POC ABG pCO2 51.0 (35-45) H 10/28/19 05:19 ABG pCO2 53.6 mm Hg 10/27/19 03:30 POC ABG pO2 71 (80-105) L 10/28/19 05:19 ABG pO2 88.6 mm Hg (80.0-90.0) 10/27/19 03:30 POC ABG HCO3 38.8 (22-26 mml/L) 10/28/19 05:19 POC ABG Total CO2 40 (23-27mmol/L) 10/28/19 05:19 POC ABG O2 Sat 95 10/28/19 05:19 ABG O2 Saturation 97.2 % (95.0-99.0) 10/27/19 03:30 Abnormal lab findings: Abnormal Labs 10/17/19 10/17/19 10/17/19 20:57 20:57 Unknown WBC 4.0 L RBC Hgb Hct MCV 78 L MCH 25 L RDW 24.7 H Lymph % (Auto) [place] % (Auto) Lymph # Seg Neutrophils % Seg Neuts % (Manual) 77.0 H Monocytes % (Manual) 9.0 H Lymphocytes # (Manual) 0.6 L POC ABG pH ABG pH POC ABG pCO2 POC ABG pO2 ABG pO2 ABG HCO3 ABG Base Excess ABG Hemoglobin Sodium Potassium 3.5 L Chloride Carbon Dioxide BUN Creatinine 0.6 L Glucose 147 H POC Glucose Calcium 7.9 L AST 57 H Total Creatine Kinase 857 H Albumin 3.0 L Triglycerides Influenza A (Rapid) Positive A 10/18/19 10/18/19 10/18/19 05:21 05:21 09:19 WBC 3.3 L RBC Hgb Hct MCV MCH 25 L RDW 24.3 H Lymph % (Auto) 12.5 L [place] % (Auto) 7.9 H Lymph # 0.4 L Seg Neutrophils % 78.6 H Seg Neuts % (Manual) Monocytes % (Manual) Lymphocytes # (Manual) POC ABG pH ABG pH POC ABG pCO2 POC ABG pO2 ABG pO2 131.3 H ABG HCO3 30.2 H ABG Base Excess 4.5 H ABG Hemoglobin 10.7 L Sodium Potassium Chloride Carbon Dioxide BUN Creatinine Glucose 167 H POC Glucose Calcium 8.3 L AST Total Creatine Kinase Albumin Triglycerides Influenza A (Rapid) 10/18/19 10/18/19 10/19/19 11:28 18:27 06:39 WBC RBC Hgb Hct MCV MCH RDW Lymph % (Auto) [place] % (Auto) Lymph # Seg Neutrophils % Seg Neuts % (Manual) Monocytes % (Manual) Lymphocytes # (Manual) POC ABG pH 7.461 H 7.487 H ABG pH POC ABG pCO2 53.4 H 52.8 H 51.7 H POC ABG pO2 70 L 71 L ABG pO2 ABG HCO3 ABG Base Excess ABG Hemoglobin Sodium Potassium Chloride Carbon Dioxide BUN Creatinine Glucose POC Glucose Calcium AST Total Creatine Kinase Albumin Triglycerides Influenza A (Rapid) 10/19/19 10/20/19 10/20/19 23:25 05:31 09:08 WBC RBC Hgb Hct MCV MCH RDW Lymph % (Auto) [place] % (Auto) Lymph # Seg Neutrophils % Seg Neuts % (Manual) Monocytes % (Manual) Lymphocytes # (Manual) POC ABG pH ABG pH POC ABG pCO2 POC ABG pO2 ABG pO2 ABG HCO3 ABG Base Excess ABG Hemoglobin Sodium Potassium Chloride Carbon Dioxide BUN Creatinine Glucose POC Glucose 203 H 144 H 163 H Calcium AST Total Creatine Kinase Albumin Triglycerides Influenza A (Rapid) 10/20/19 10/20/19 10/20/19 10:25 13:22 14:51 WBC RBC Hgb Hct MCV MCH RDW Lymph % (Auto) [place] % (Auto) Lymph # Seg Neutrophils % Seg Neuts % (Manual) Monocytes % (Manual) Lymphocytes # (Manual) POC ABG pH 7.632 H ABG pH POC ABG pCO2 POC ABG pO2 74 L ABG pO2 ABG HCO3 ABG Base Excess ABG Hemoglobin Sodium 147 H Potassium Chloride Carbon Dioxide 31 H BUN Creatinine 0.5 L Glucose 154 H POC Glucose 178 H Calcium 8.2 L AST Total Creatine Kinase Albumin Triglycerides Influenza A (Rapid) 10/20/19 10/20/19 10/20/19 14:51 17:16 21:30 WBC 11.2 H RBC Hgb Hct MCV 78 L MCH 25 L RDW 23.9 H Lymph % (Auto) [place] % (Auto) Lymph # Seg Neutrophils % Seg Neuts % (Manual) Monocytes % (Manual) Lymphocytes # (Manual) POC ABG pH ABG pH POC ABG pCO2 POC ABG pO2 ABG pO2 ABG HCO3 ABG Base Excess ABG Hemoglobin Sodium Potassium Chloride Carbon Dioxide BUN Creatinine Glucose POC Glucose 143 H 152 H Calcium AST Total Creatine Kinase Albumin Triglycerides Influenza A (Rapid) 10/20/19 10/21/19 10/21/19 22:52 05:55 08:27 WBC RBC Hgb Hct MCV MCH RDW Lymph % (Auto) [place] % (Auto) Lymph # Seg Neutrophils % Seg Neuts % (Manual) Monocytes % (Manual) Lymphocytes # (Manual) POC ABG pH ABG pH POC ABG pCO2 POC ABG pO2 ABG pO2 ABG HCO3 ABG Base Excess ABG Hemoglobin Sodium Potassium Chloride Carbon Dioxide BUN Creatinine Glucose POC Glucose 179 H 115 H 131 H Calcium AST Total Creatine Kinase Albumin Triglycerides Influenza A (Rapid) 10/21/19 10/21/19 10/21/19 11:52 16:23 23:38 WBC RBC Hgb Hct MCV MCH RDW Lymph % (Auto) [place] % (Auto) Lymph # Seg Neutrophils % Seg Neuts % (Manual) Monocytes % (Manual) Lymphocytes # (Manual) POC ABG pH ABG pH POC ABG pCO2 POC ABG pO2 ABG pO2 ABG HCO3 ABG Base Excess ABG Hemoglobin Sodium Potassium Chloride Carbon Dioxide BUN Creatinine Glucose POC Glucose 122 H 120 H 115 H Calcium AST Total Creatine Kinase Albumin Triglycerides Influenza A (Rapid) 10/22/19 10/22/19 10/22/19 00:35 05:19 06:10 WBC RBC Hgb Hct MCV MCH 25 L RDW 22.8 H Lymph % (Auto) [place] % (Auto) Lymph # Seg Neutrophils % Seg Neuts % (Manual) Monocytes % (Manual) Lymphocytes # (Manual) POC ABG pH ABG pH 7.520 H POC ABG pCO2 POC ABG pO2 ABG pO2 64.4 L ABG HCO3 36.8 H ABG Base Excess 12.6 H ABG Hemoglobin 10.4 L Sodium Potassium Chloride Carbon Dioxide BUN Creatinine Glucose POC Glucose 108 H Calcium AST Total Creatine Kinase Albumin Triglycerides Influenza A (Rapid) 10/22/19 10/24/19 10/25/19 15:40 05:49 04:20 WBC RBC Hgb Hct MCV MCH RDW Lymph % (Auto) [place] % (Auto) Lymph # Seg Neutrophils % Seg Neuts % (Manual) Monocytes % (Manual) Lymphocytes # (Manual) POC ABG pH 7.454 H ABG pH POC ABG pCO2 64.1 H 63.5 H POC ABG pO2 73 L ABG pO2 ABG HCO3 ABG Base Excess ABG Hemoglobin Sodium 136 L D Potassium Chloride 97.6 L Carbon Dioxide BUN 19 H Creatinine Glucose 125 H POC Glucose Calcium AST Total Creatine Kinase Albumin Triglycerides Influenza A (Rapid) 10/25/19 10/25/19 10/26/19 05:35 05:35 04:19 WBC RBC Hgb 10.0 L Hct MCV MCH 25 L RDW 22.0 H Lymph % (Auto) [place] % (Auto) Lymph # Seg Neutrophils % Seg Neuts % (Manual) Monocytes % (Manual) Lymphocytes # (Manual) POC ABG pH ABG pH POC ABG pCO2 66.1 H POC ABG pO2 75 L ABG pO2 ABG HCO3 ABG Base Excess ABG Hemoglobin Sodium 147 H D Potassium Chloride Carbon Dioxide 34 H D BUN 23 H Creatinine 0.5 L Glucose 184 H POC Glucose Calcium AST Total Creatine Kinase Albumin Triglycerides Influenza A (Rapid) 10/26/19 10/26/19 10/26/19 05:20 05:20 12:44 WBC RBC Hgb 9.5 L Hct MCV MCH 25 L RDW 22.3 H Lymph % (Auto) [place] % (Auto) Lymph # Seg Neutrophils % Seg Neuts % (Manual) Monocytes % (Manual) Lymphocytes # (Manual) POC ABG pH 7.501 H ABG pH POC ABG pCO2 54.7 H POC ABG pO2 69 L ABG pO2 ABG HCO3 ABG Base Excess ABG Hemoglobin Sodium 152 H Potassium Chloride Carbon Dioxide 33 H BUN 27 H Creatinine 0.6 L Glucose 135 H POC Glucose Calcium AST Total Creatine Kinase Albumin Triglycerides Influenza A (Rapid) 10/27/19 10/27/19 10/27/19 03:30 05:40 05:40 WBC RBC 3.62 L Hgb 9.4 L Hct 29.1 L MCV MCH 26 L RDW 21.7 H Lymph % (Auto) [place] % (Auto) Lymph # Seg Neutrophils % Seg Neuts % (Manual) Monocytes % (Manual) Lymphocytes # (Manual) POC ABG pH ABG pH 7.472 H POC ABG pCO2 POC ABG pO2 ABG pO2 ABG HCO3 38.2 H ABG Base Excess 13.3 H ABG Hemoglobin 6.5 L Sodium 149 H Potassium 3.3 L Chloride Carbon Dioxide 31 H BUN 25 H Creatinine 0.5 L Glucose 142 H POC Glucose Calcium 8.2 L AST Total Creatine Kinase Albumin Triglycerides Influenza A (Rapid) 10/27/19 10/28/19 10/28/19 05:40 05:19 05:56 WBC RBC Hgb Hct MCV MCH RDW Lymph % (Auto) [place] % (Auto) Lymph # Seg Neutrophils % Seg Neuts % (Manual) Monocytes % (Manual) Lymphocytes # (Manual) POC ABG pH 7.489 H ABG pH POC ABG pCO2 51.0 H POC ABG pO2 71 L ABG pO2 ABG HCO3 ABG Base Excess ABG Hemoglobin Sodium 153 H Potassium Chloride Carbon Dioxide 31 H BUN Creatinine 0.4 L Glucose 111 H POC Glucose Calcium 8.1 L AST Total Creatine Kinase Albumin Triglycerides 279 H Influenza A (Rapid) Chest x-ray: image reviewed Allied health notes reviewed: RT
--- NOTE | 2019-10-28 12:20 | Progress Note ---
Assessment and Plan Assessment and plan: Acute hypoxemic respiratory failure. The patient failed BiPAP and required intubation on 10/23/2019. Patient currently on AC mode ventilation. Pulmonary following. Sepsis. Etiology secondary to pneumonia/influenza A. Continue antibiotics per ID. Follow-up cultures. Influenza A. Continue Tamiflu per ID. Bilateral pneumonia. Continue antibiotics per ID recommendations. Follow-up chest x-ray. Acute on chronic diastolic heart failure. Echocardiogram revealed The left ventricular size is mildly dilated, mild to moderate concentric LVH, est EF 40- 45%, left atrium is mildly dilated, trace MR, mild TR, mild to moderate Pulmonary hypertension, RVSP is calculated at 42 mmHg. Obesity hypoventilation syndrome/DEAN. Outpatient evaluation for sleep apnea Morbid obesity. Weight loss and life style modifications on discharge. May need surgical bariatric intervention The high probability of a clinically significant, sudden or life-threatening deterioration of the [respiratory, cardiovascular,] system(s) required my full and direct attention, intervention and personal management. The aggregate critical care time was [33] minutes without overlap. Time includes spent on; [x] Data Review and interpretation [x] Patient assessment and monitoring of vital signs [x] Documentation [x] Medication orders and management History Interval history: Patient is a 49 yo woman with a history of severe obesity BMI 93.6 (579 lbs), hypertension, lymphedema, functional quadriplegia and DEAN non compliant with CPAP who admitted to [facility] ED on 10/18/19 with Respiratory failure wtih pulse ox in the 50s. She was treated with BIPAP up until 10/23/2019 around 5pm when she was intubated by Anesthesia using guidescope. Trach aspirate growing GNR (still pending) and iv zosyn started then switched to Cefepime by ID. Hospitalist Physical - Constitutional Vitals: Temp Pulse Resp BP Pulse Ox 99.1 F 108 H 28 H 144/72 94 10/28/19 08:00 10/28/19 10:00 10/28/19 10:00 10/28/19 10:10/28/19 10:00 General appearance: Present: obese, other (Intubated on mechanical ventilation). Absent: mild distress - EENT Eyes: Present: PERRL, EOM intact ENT: hearing intact, clear oral mucosa, dentition normal - Neck Neck: Present: supple, normal ROM - Respiratory Respiratory effort: normal Respiratory: bilateral: CTA - Cardiovascular Rhythm: regular Heart Sounds: Present: S1 & S2. Absent: gallop, rub - Extremities Extremities: no ischemia, No edema, Full ROM - Abdominal General gastrointestinal: soft, non-tender, non-distended, normal bowel sounds - Integumentary Integumentary: Present: clear, warm, dry - Neurologic Neurologic: CNII-XII intact, moves all extremities Results - Labs CBC & Chem 7: 10/27/19 05:40 10/28/19 05:56 Labs: Laboratory Last Values WBC 8.5 K/mm3 (4.5-11.0) 10/27/19 05:40 RBC 3.62 M/mm3 (3.65-5.03) L 10/27/19 05:40 Hgb 9.4 gm/dl (10.1-14.3) L 10/27/19 05:40 Hct 29.1 % (30.3-42.9) L 10/27/19 05:40 MCV 80 fl (79-97) 10/27/19 05:40 MCH 26 pg (28-32) L 10/27/19 05:40 MCHC 32 % (30-34) 10/27/19 05:40 RDW 21.7 % (13.2-15.2) H 10/27/19 05:40 Plt Count 288 K/mm3 (140-440) 10/27/19 05:40 Lymph % (Auto) 12.5 % (13.4-35.0) L 10/18/19 05:21 [place] % (Auto) 7.9 % (0.0-7.3) H 10/18/19 05:21 Eos % (Auto) 0.0 % (0.0-4.3) 10/18/19 05:21 Baso % (Auto) 1.0 % (0.0-1.8) 10/18/19 05:21 Lymph # 0.4 K/mm3 (1.2-5.4) L 10/18/19 05:21 [place] # 0.3 K/mm3 (0.0-0.8) 10/18/19 05:21 Eos # 0.0 K/mm3 (0.0-0.4) 10/18/19 05:21 Baso # 0.0 K/mm3 (0.0-0.1) 10/18/19 05:21 Add Manual Diff Complete 10/17/19 20:57 Total Counted 100 10/17/19 20:57 Seg Neutrophils % 78.6 % (40.0-70.0) H 10/18/19 05:21 Seg Neuts % (Manual) 77.0 % (40.0-70.0) H 10/17/19 20:57 Band Neutrophils % 0 % 10/17/19 20:57 Lymphocytes % (Manual) 14.0 % (13.4-35.0) 10/17/19 20:57 Reactive Lymphs % (Man) 0 % 10/17/19 20:57 Monocytes % (Manual) 9.0 % (0.0-7.3) H 10/17/19 20:57 Eosinophils % (Manual) 0 % (0.0-4.3) 10/17/19 20:57 Basophils % (Manual) 0 % (0.0-1.8) 10/17/19 20:57 Metamyelocytes % 0 % 10/17/19 20:57 Myelocytes % 0 % 10/17/19 20:57 Promyelocytes % 0 % 10/17/19 20:57 Blast Cells % 0 % 10/17/19 20:57 Nucleated RBC % Not Reportable 10/17/19 20:57 Seg Neutrophils # 2.6 K/mm3 (1.8-7.7) 10/18/19 05:21 Seg Neutrophils # Man 3.1 K/mm3 (1.8-7.7) 10/17/19 20:57 Band Neutrophils # 0.0 K/mm3 10/17/19 20:57 Lymphocytes # (Manual) 0.6 K/mm3 (1.2-5.4) L 10/17/19 20:57 Abs React Lymphs (Man) 0.0 K/mm3 10/17/19 20:57 Monocytes # (Manual) 0.4 K/mm3 (0.0-0.8) 10/17/19 20:57 Eosinophils # (Manual) 0.0 K/mm3 (0.0-0.4) 10/17/19 20:57 Basophils # (Manual) 0.0 K/mm3 (0.0-0.1) 10/17/19 20:57 Metamyelocytes # 0.0 K/mm3 10/17/19 20:57 Myelocytes # 0.0 K/mm3 10/17/19 20:57 Promyelocytes # 0.0 K/mm3 10/17/19 20:57 Blast Cells # 0.0 K/mm3 10/17/19 20:57 WBC Morphology Not Reportable 10/17/19 20:57 Hypersegmented Neuts Not Reportable 10/17/19 20:57 Hyposegmented Neuts Not Reportable 10/17/19 20:57 Hypogranular Neuts Not Reportable 10/17/19 20:57 Smudge Cells Not Reportable 10/17/19 20:57 Toxic Granulation Not Reportable 10/17/19 20:57 Toxic Vacuolation Not Reportable 10/17/19 20:57 Dohle Bodies Not Reportable 10/17/19 20:57 Pelger-Huet Anomaly Not Reportable 10/17/19 20:57 Krista Rods Not Reportable 10/17/19 20:57 Platelet Estimate Not Reportable 10/17/19 20:57 Clumped Platelets Not Reportable 10/17/19 20:57 Plt Clumps, EDTA Not Reportable 10/17/19 20:57 Large Platelets Not Reportable 10/17/19 20:57 Giant Platelets Not Reportable 10/17/19 20:57 Platelet Satelliting Not Reportable 10/17/19 20:57 Plt Morphology Comment Not Reportable 10/17/19 20:57 RBC Morphology Not Reportable 10/17/19 20:57 Dimorphic RBCs Not Reportable 10/17/19 20:57 Polychromasia Not Reportable 10/17/19 20:57 Hypochromasia 1+ 10/17/19 20:57 Poikilocytosis Not Reportable 10/17/19 20:57 Anisocytosis 2+ 10/17/19 20:57 Microcytosis Not Reportable 10/17/19 20:57 Macrocytosis Not Reportable 10/17/19 20:57 Spherocytes Not Reportable 10/17/19 20:57 Pappenheimer Bodies Not Reportable 10/17/19 20:57 Sickle Cells Not Reportable 10/17/19 20:57 Target Cells Not Reportable 10/17/19 20:57 Tear Drop Cells Not Reportable 10/17/19 20:57 Ovalocytes Not Reportable 10/17/19 20:57 Helmet Cells Not Reportable 10/17/19 20:57 Gallagher-[place] Bodies Not Reportable 10/17/19 20:57 Howells Rings Not Reportable 10/17/19 20:57 James Cells Not Reportable 10/17/19 20:57 Bite Cells Not Reportable 10/17/19 20:57 Crenated Cell Not Reportable 10/17/19 20:57 Elliptocytes Not Reportable 10/17/19 20:57 Acanthocytes (Spur) Not Reportable 10/17/19 20:57 Rouleaux Not Reportable 10/17/19 20:57 Hemoglobin C Crystals Not Reportable 10/17/19 20:57 Schistocytes Not Reportable 10/17/19 20:57 Malaria parasites Not Reportable 10/17/19 20:57 Alejandro Bodies Not Reportable 10/17/19 20:57 Hem Pathologist Commnt No 10/17/19 20:57 POC ABG pH 7.489 (7.35-7.45) H 10/28/19 05:19 ABG pH 7.472 pH Units (7.350-7.450) H 10/27/19 03:30 POC ABG pCO2 51.0 (35-45) H 10/28/19 05:19 ABG pCO2 53.6 mm Hg 10/27/19 03:30 POC ABG pO2 71 (80-105) L 10/28/19 05:19 ABG pO2 88.6 mm Hg (80.0-90.0) 10/27/19 03:30 POC ABG HCO3 38.8 (22-26 mml/L) 10/28/19 05:19 ABG HCO3 38.2 mmol/L (20.0-26.0) H 10/27/19 03:30 POC ABG Total CO2 40 (23-27mmol/L) 10/28/19 05:19 POC ABG O2 Sat 95 10/28/19 05:19 ABG O2 Saturation 97.2 % (95.0-99.0) 10/27/19 03:30 ABG O2 Content 8.9 (0.0-44) 10/27/19 03:30 POC ABG Base Excess 15 ((-2) - (+3)mmol/L) 10/28/19 05:19 ABG Base Excess 13.3 mmol/L (-2.0-3.0) H 10/27/19 03:30 ABG Hemoglobin 6.5 gm/dl (12.0-16.0) L 10/27/19 03:30 ABG Carboxyhemoglobin 1.6 % (0.0-5.0) 10/27/19 03:30 ABG Methemoglobin 0.4 % (0.0-1.5) 10/27/19 03:30 Oxyhemoglobin 95.3 % (95.0-99.0) 10/27/19 03:30 FiO2 45 % 10/28/19 05:19 Sodium 153 mmol/L (137-145) H 10/28/19 05:56 Potassium 3.8 mmol/L (3.6-5.0) 10/28/19 05:56 Chloride 106.8 mmol/L (98-107) 10/28/19 05:56 Carbon Dioxide 31 mmol/L (22-30) H 10/28/19 05:56 Anion Gap 19 mmol/L 10/28/19 05:56 BUN 17 mg/dL (7-17) 10/28/19 05:56 Creatinine 0.4 mg/dL (0.7-1.2) L 10/28/19 05:56 Estimated GFR > 60 ml/min 10/28/19 05:56 BUN/Creatinine Ratio 43 % 10/28/19 05:56 Glucose 111 mg/dL (65-100) H 10/28/19 05:56 POC Glucose 108 (70-105) H 10/22/19 05:19 Calcium 8.1 mg/dL (8.4-10.2) L 10/28/19 05:56 Total Bilirubin 0.20 mg/dL (0.1-1.2) 10/17/19 20:57 AST 57 units/L (5-40) H 10/17/19 20:57 ALT 22 units/L (7-56) 10/17/19 20:57 Alkaline Phosphatase 67 units/L (35-129) 10/17/19 20:57 Total Creatine Kinase 857 units/L (30-135) H 10/17/19 20:57 CK-MB (CK-2) 2.6 ng/mL (0.0-4.0) 10/17/19 20:57 CK-MB (CK-2) Rel Index 0.3 (0-4) 10/17/19 20:57 Troponin T < 0.010 ng/mL (0.00-0.029) 10/17/19 20:57 NT-Pro-B Natriuret Pep 317.6 pg/mL (0-450) 10/17/19 20:57 Total Protein 7.1 g/dL (6.3-8.2) 10/17/19 20:57 Albumin 3.0 g/dL (3.9-5) L 10/17/19 20:57 Albumin/Globulin Ratio 0.7 % 10/17/19 20:57 Triglycerides 279 mg/dL (2-149) H 10/27/19 05:40 Procalcitonin 0.06 ng/mL (<0.15) 10/20/19 14:51 Influenza A (Rapid) Positive (Negative) A 10/17/19 Unknown Influenza B (Rapid) Negative (Negative) 10/17/19 Unknown Active Medications - Current Medications Current Medications: Generic Name Dose Route Start Last Admin Trade Name Freq PRN Reason Stop Dose Admin Acetaminophen 650 mg 10/27/19 08:38 10/27/19 23:32 Tylenol PO 650 mg Q4H PRN Administration Non Cardiac Pain or Temp>100.5 Albuterol 2.5 mg 10/17/19 22:47 10/19/19 14:34 Proventil IH 2.5 mg Q3HRT PRN Administration Shortness Of Breath Albuterol/Ipratropium 1 ampul 10/19/19 20:00 10/28/19 07:17 Duoneb *Not For Prn Use* IH 1 ampul TIDRT EDI Administration Lipase/Protease/Amylase 1 each 10/24/19 11:54 Pancreaze 10,500 Unit FEEDTUBE PRN PRN For Clogged Feeding Tube Fentanyl 50 mcg 10/23/19 17:29 Sublimaze IV Q10MIN PRN ANALGESIA Heparin Sodium (Porcine) 5,000 unit 10/18/19 06:00 10/28/19 05:19 Heparin SUB-Q 5,000 unit Q8HR EDI Administration Hydrophilic Ointment 1 applic 10/23/19 17:29 10/27/19 00:29 Vaseline Lip Therapy TP 1 applic Q2HR PRN Administration Dry Lips Fentanyl Citrate 2,000 mcg in 100 mls @ 13.25 mls/hr 10/23/19 18:00 10/28/19 12:05 Fentanyl Drip Premix IV 3 mcg/kg/hr TITR EDI 39.75 mls/hr Administration Protocol 1 MCG/KG/HR Propofol 1,000 mg in 100 mls @ 7.95 mls/hr 10/23/19 18:00 10/28/19 12:08 Diprivan 10 Mg/Ml IV 5 mcg/kg/min TITR EDI 7.95 mls/hr Titration Protocol 5 MCG/KG/MIN Cefepime HCl 2 gm in 100 mls @ 200 mls/hr 10/24/19 13:00 10/28/19 05:19 Cefepime/Ns 2 Gm/100 Ml IV 200 mls/hr Q8H EDI Administration Protocol Labetalol HCl 10 mg 10/24/19 14:32 Labetalol IV Q4H PRN Blood Pressure Lansoprazole 30 mg 10/26/19 10:00 10/28/19 09:38 Prevacid Solutab FEEDTUBE 30 mg QDAY EDI Administration Morphine Sulfate 2 mg 10/17/19 22:47 Morphine IV Q4H PRN Pain, Moderate (4-6) Multi-Ingred Cream/Lotion/Oil/Oint 1 applic 10/23/19 17:29 Artificial Tears Ophth Oint OU Q4HR PRN Dry Eye(s) Ondansetron HCl 4 mg 10/17/19 22:47 Zofran IV Q8H PRN Nausea And Vomiting Simple Syrup 15 ml 10/24/19 11:54 Simple Syrup FEEDTUBE PRN PRN Hypoglycemia Simple Syrup 30 ml 10/24/19 11:54 Simple Syrup FEEDTUBE PRN PRN Hypoglycemia Sodium Bicarbonate 325 mg 10/24/19 11:54 Sodium Bicarbonate FEEDTUBE PRN PRN For Clogged Feeding Tube Sodium Chloride 10 ml 10/18/19 10:00 10/28/19 09:38 Sodium Chloride Flush Syringe 10 Ml IV 10 ml BID EDI Administration Sodium Chloride 10 ml 10/17/19 22:47 Sodium Chloride Flush Syringe 10 Ml IV PRN PRN LINE FLUSH Nutrition/Malnutrition Assess - Dietary Evaluation Nutrition/Malnutrition Findings: Nutrition Notes Start: 10/19/19 13:20 Freq: Status: Active Protocol: Document 10/26/19 11:35 LM (Rec: 10/26/19 11:46 LM [email or web address]) Nutrition Notes Initial or Follow up Reassessment Current Diagnosis Hypertension,Respiratory Failure Other Pertinent Diagnosis Influlenza A pneumonia, lymphedema, pulmonary edema, SOB, DVT Current Diet Vital AF 1.2 at 65 ml/hr Labs/Tests Na 152 BUN 27 Cr 0.6 BG 135 Pertinent Medications Lasix Propofol (210 kcal) Height 5 ft 6 in Weight 236.8 kg [place] Body Weight (kg) 59.09 BMI 84.2 Weight change and time frame Wt change noted. Possibly due to fluid. Subjective/Other Information Vital at goal. Will increase flush for hypernatremia. Percent of energy/protein needs met: 99%/79% Burn Absent Trauma Absent Current % PO Negligible #2 Nutrition Diagnosis Inadequate oral intake Diagnosis Progress(for reassessment Continues documentation) Is patient on ventilator? Yes Is Patient Ambulatory and/or Out of Bed No REE-([facility]-confined to bed) 3619.464 Kcal/Kg value to use for calculation 8 Approximate Energy Requirements Using 1894 kcal/Kg Calculation Used for Recommendations Kcal/kg Additional Notes Protein needs: 148g (up to 2. 5g/kg IBW 59 kg) Fluid: 1 ml/kcal Nutrition Intervention Change Diet Order: TF Nutrition Support: Vital AF 1.2 at 65 ml/hr Flush 150 ml q4h for hypernatremia Flush 100 ml q4h once hypernatremia resolves Kcal 1,872 Protein (gm) 117 Fluid (mL) 1,265 Goal #1 Meet at least 75% of energy and protein needs Anticipated Discharge Needs: unable to determine at this time Follow-Up By: 10/30/19 Additional Comments F/U for TF tolerance, Na lab
[2019-10-28] MEDS: MORPHINE 2 MG/1 ML INJ IV PRN (20:23)
[2019-10-28] MEDS: ACETAMINOPHEN 325 MG/10.15 ML ORAL LIQD UNIT DOSE PO PRN (20:23)
[2019-10-29] MEDS: fentaNYL DRIP Premix 2,000 MCG/100 ML BAG IV SCH ×11 (00:55→21:30)
[2019-10-29] MEDS: ACETAMINOPHEN 325 MG/10.15 ML ORAL LIQD UNIT DOSE PO PRN ×3 (01:35→21:29)
--- NOTE | 2019-10-29 04:06 | XRay Report ---
CHEST 1 VIEW, 10/29/2019 2:04 AM CLINICAL INFORMATION/INDICATION: Respiratory failure COMPARISON: Chest radiograph, 10/28/2019 at 2:02 AM FINDINGS: SUPPORT DEVICES: Endotracheal tube remains in stable position. Esophagogastric tube is also present a lthough its distal portion is not well-visualized. HEART: Cardiac and mediastinal contours are unchanged. LUNGS/PLEURA: Diffuse bilateral pulmonary opacities are unchanged. ADDITIONAL FINDINGS: No additional acute findings. IMPRESSION: 1. Stable appearance of bilateral pulmonary opacities. Signer Name: Kacie Willard MD Signed: 10/29/2019 4:02 AM Workstation Name: [id number]
[2019-10-29] MEDS: CEFEPIME/NS 2 GM/100 ML 2 GM/100 ML BAG IV SCH ×3 (05:00→21:23)
[2019-10-29 05:43] LABS: BUN/Creatinine Ratio 35; Blood Urea Nitrogen 14 mg/dL (7-17); Calcium 8.6 mg/dL (8.4-10.2); Hemolysis Index 57
[2019-10-29] MEDS: HEPARIN 5,000 UNIT/1 ML VIAL SUB-Q SCH ×3 (06:15→21:28)
[2019-10-29] MEDS: IPRATROPIUM/ALBUTEROL SULFATE 3 ML AMPUL.NEB IH SCH ×3 (07:29→20:38)
[2019-10-29] MEDS: LANSOPRAZOLE 30 MG SOLUTAB FEEDTUBE SCH (09:25)
[2019-10-29] MEDS ORDERED: BUMETANIDE 1 MG/4 ML INJ IV ONE (09:44)
--- NOTE | 2019-10-29 11:38 | Progress Note ---
Assessment and Plan Cultures: 10/17/2019 blood culture: No growth 10/17/2019 influenza A: Positive 10/23/2019 Resp culture: GNR 10/25/2019 tracheal aspirate: GNR 10/25/2019 blood culture: no growth thus far A/P: 49-year-old female with morbid obesity, hypertension, lymphedema, functional quadriplegia and sleep apnea admitted with: #Influenza A with acute respiratory failure: completed high dose prolonged Tamiflu course. Intubated, on mechanical ventilation. #Superimposed pneumonia: resp culture with GNR, patient on Cefepime. #Extreme morbid obesity: BMI is 94.3. ?Cefepime 2 gm q8 hrs may not be adequate, but higher doses could increase risk of seizures. Recs: continue IV Cefepime 2 gm q8 hrs we are still awaiting ID and susceptibility data for the GNR from respiratory cultures Henny Nayak MD, FACP [facility] C: [phone] O: [phone] F: [phone] Subjective Date of service: 10/29/19 Principal diagnosis: acute respiratory distress Interval history: Low grade fevers continue. Otherwise patient remains intubated, on the vent. Objective - Exam Narrative Exam: Physical Exam: Constitutional: sedated, intubated. Morbidly obese Head, Ears, Nose: Normocephalic, atraumatic. External ears, nose normal Eyes: Conjunctivae/corneas clear. No icterus. No ptosis. Neck: intubated Oral: intubated Cardiovascular: S1, S2 normal. Respiratory: Good air entry, clear to auscultation bilaterally GI: Soft, non-tender; bowel sounds normal. No peritoneal signs Musculoskeletal: No pedal edema, no cyanosis. Skin: No rash or abscess. No wounds Hem/Lymphatic: No palpable cervical or supraclavicular nodes. No lymphangitis Psych: no agitation Neurological: sedated, intubated, on vent - Constitutional Vitals: Vital Signs Temp Pulse Resp BP Pulse Ox 100.3 F H 123 H 28 H 152/80 88 10/29/19 11:21 10/29/19 08:00 10/29/19 08:00 10/29/19 08:00 10/29/19 08:00 Temperature -Last 24 Hours Temperature 100.3 F Temperature 99.7 F Temperature 100.3 F Temperature 100.7 F Temperature 100.6 F Temperature 100.2 F Temperature 99.4 F - Labs CBC & Chem 7: 10/27/19 05:40 10/29/19 04:21 Labs: Abnormal lab results 10/29/19 10/29/19 Range/Units 03:54 04:21 POC ABG pH 7.506 H (7.35-7.45) POC ABG pCO2 53.6 H (35-45) Sodium 150 H (137-145) mmol/L Creatinine 0.4 L (0.7-1.2) mg/dL Glucose 137 H (65-100) mg/dL - Imaging and cardiology Chest x-ray: report reviewed, image reviewed (b/l diffuse airspace disease)
--- NOTE | 2019-10-29 12:09 | Progress Note ---
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 Functional quadriplegia h/o HTN -Decrease PEEP to 8 and monitor Fever urve is trending down, ID following -Has completed anti-viral therapy, on antibiotics per ID service -Continue with diuresis while monitoring renal function, electrolytes - she is being evaluated daily and then a decision is made on administration of diuretics -Free water flushes and hypotonic solution for hypernatremia -Continue with sedation, with daily SAT -Continue mobility protocol, off loading for pressure ulcer prevention- high risk patient -VAP bundle addresed -Aspiration precautions, HOB>40 degrees -Wean FIO2 for O2 sats 88-90%. Once FIO2 to down to 50% with adequate oxygenation, will start weaning PEEP -Daily assessment for readiness to wean - Continue Oxygen restrictive strategies -Titrate sedation to RASS -1 -Bronchodilators per protocol -Continue tube feedings via the small bowel feeding tube -Continue airborne isolation -Continue with VTE prophylaxis -Continue stress ulcer prophylaxis - Continue with Accuchecks with glycemic control for SSI (While critically ill target blood glucose of 140-180 mg/dL; avoid hypoglycemia) - Continue to monitor hemodynamics closely - Continue to monitor electrolyte profile closely and replete as indicated -Chronic home medications, resume as clinically indicated -Blanchard catheter in this critically ill patient, with poor urine output, requiring accurate intake and output monitoring. She acutely de-saturates with minimal movement -PT/OT -Weight loss and life style modifications on discharge. May need surgical bariatric intervention( discussed this with her and her sister- patient cu rrently does not have health insurance but has applied) -Out patient evaluation for sleep apnea Discussed with RT and RN Updated her sister who was at the bedside CONDITION: CRITICAL PROGNOSIS: GUARDED CODE STATUS: FULL CODE The high probability of a clinically significant, sudden or life-threatening deterioration of the [respiratory, cardiovascular,] system(s) required my full and direct attention, intervention and personal management. The aggregate critical care time was [35] minutes without overlap. Time includes spent on; [x] Data Review and interpretation [x] Patient assessment and monitoring of vital signs [x] Documentation [x] Medication orders and management Subjective Date of service: 01/09/20 Principal diagnosis: acute respiratory distress Interval history: Patient is seen today for: acute hypoxic-hypercapnic respiratory failure on MVS; influenza infection; extreme obesity with probable DEAN Seen and examined at bedside; 24hour events reviewed; nursing and respiratory care staff consulted; no adverse overnight events reported to me; Patient is on MVS, ETT in place to MVS FIO2 50%, PEEP 10- airway pressures are within normal. On fentanyl and propofol- comfortable. RUExt midline, Blanchard catheter Vitals, labs, medications, chart and imaging reviewed. Discussed with RT and RN Fevers, on going Objective Vital Signs - 12hr 10/29/19 10/29/19 10/29/19 00:11 00:15 01:00 Temperature Pulse Rate 119 H 118 H 105 H Pulse Rate [ Anterior Bilateral Throughout] Pulse Rate [ Bilateral] Pulse Rate [ From Monitor] Respiratory 27 H 28 H Rate Respiratory Rate [Anterior Bilateral Throughout] Respiratory Rate [Bilateral ] Blood Pressure 156/81 156/81 127/74 O2 Sat by Pulse 97 97 89 Oximetry 10/29/19 10/29/19 10/29/19 02:00 03:00 04:00 Temperature 100.3 F H Pulse Rate 101 H 98 H 101 H Pulse Rate [ Anterior Bilateral Throughout] Pulse Rate [ Bilateral] Pulse Rate [ 121 H From Monitor] Respiratory 28 H 28 H 21 Rate Respiratory Rate [Anterior Bilateral Throughout] Respiratory Rate [Bilateral ] Blood Pressure 142/79 144/82 157/77 O2 Sat by Pulse 91 90 91 Oximetry 10/29/19 10/29/19 10/29/19 04:55 05:00 06:00 Temperature Pulse Rate 102 H 103 H 114 H Pulse Rate [ Anterior Bilateral Throughout] Pulse Rate [ Bilateral] Pulse Rate [ From Monitor] Respiratory 28 H 28 H Rate Respiratory Rate [Anterior Bilateral Throughout] Respiratory Rate [Bilateral ] Blood Pressure 157/77 154/79 171/92 O2 Sat by Pulse 97 90 88 Oximetry 10/29/19 10/29/19 10/29/19 07:00 07:22 08:00 Temperature 99.7 F H Pulse Rate 101 H 117 H 109 H Pulse Rate [ 123 H Anterior Bilateral Throughout] Pulse Rate [ 123 H Bilateral] Pulse Rate [ From Monitor] Respiratory 28 H 28 H Rate Respiratory 28 H Rate [Anterior Bilateral Throughout] Respiratory 28 H Rate [Bilateral ] Blood Pressure 130/72 130/72 152/80 O2 Sat by Pulse 88 97 88 Oximetry 10/29/19 10/29/19 10/29/19 09:00 10:00 11:00 Temperature Pulse Rate 114 H 106 H 115 H Pulse Rate [ Anterior Bilateral Throughout] Pulse Rate [ Bilateral] Pulse Rate [ From Monitor] Respiratory 28 H 28 H 28 H Rate Respiratory Rate [Anterior Bilateral Throughout] Respiratory Rate [Bilateral ] Blood Pressure 164/93 173/81 150/76 O2 Sat by Pulse 93 89 90 Oximetry 10/29/19 10/29/19 11:21 11:34 Temperature 100.3 F H Pulse Rate 123 H Pulse Rate [ Anterior Bilateral Throughout] Pulse Rate [ Bilateral] Pulse Rate [ From Monitor] Respiratory Rate Respiratory Rate [Anterior Bilateral Throughout] Respiratory Rate [Bilateral ] Blood Pressure 150/76 O2 Sat by Pulse 96 Oximetry Constitutional: asleep (but rousable, opens eyes to verbal stimuli), other (nods appropriately to questions, ETT at 24cm, no leak) Eyes: non-icteric ENT: oropharynx moist, other (small bowel feeding tube in nares) Neck: supple, no lymphadenopathy, no JVD, other (short neck, large circunfer ence) Effort: normal Ascultation: Bilateral: diminished breath sounds Cardiovascular: regular rate and rhythm, other (S1,S2) Gastrointestinal: normoactive bowel sounds, soft, non-tender, non-distended Integumentary: normal Extremities: no cyanosis, no edema, pink and warm, pulses normal Neurologic: non-focal exam, pupils equal and round Psychiatric: mood appropriate, affect normal CBC and BMP: 10/27/19 05:40 10/31/19 08:02 ABG, PT/INR, D-dimer: ABG POC ABG pH 7.506 (7.35-7.45) H 10/29/19 03:54 ABG pH 7.472 pH Units (7.350-7.450) H 10/27/19 03:30 POC ABG pCO2 53.6 (35-45) H 10/29/19 03:54 ABG pCO2 53.6 mm Hg 10/27/19 03:30 POC ABG pO2 95 (80-105) 10/29/19 03:54 ABG pO2 88.6 mm Hg (80.0-90.0) 10/27/19 03:30 POC ABG HCO3 42.4 (22-26 mml/L) 10/29/19 03:54 POC ABG Total CO2 44 (23-27mmol/L) 10/29/19 03:54 POC ABG O2 Sat 98 10/29/19 03:54 ABG O2 Saturation 97.2 % (95.0-99.0) 10/27/19 03:30 Abnormal lab findings: Abnormal Labs 10/17/19 10/17/19 10/17/19 20:57 20:57 Unknown WBC 4.0 L RBC Hgb Hct MCV 78 L MCH 25 L RDW 24.7 H Lymph % (Auto) Faulk % (Auto) Lymph # Seg Neutrophils % Seg Neuts % (Manual) 77.0 H Monocytes % (Manual) 9.0 H Lymphocytes # (Manual) 0.6 L POC ABG pH ABG pH POC ABG pCO2 POC ABG pO2 ABG pO2 ABG HCO3 ABG Base Excess ABG Hemoglobin Sodium Potassium 3.5 L Chloride Carbon Dioxide BUN Creatinine 0.6 L Glucose 147 H POC Glucose Calcium 7.9 L AST 57 H Total Creatine Kinase 857 H Albumin 3.0 L Triglycerides Influenza A (Rapid) Positive A 10/18/19 10/18/19 10/18/19 05:21 05:21 09:19 WBC 3.3 L RBC Hgb Hct MCV MCH 25 L RDW 24.3 H Lymph % (Auto) 12.5 L Faulk % (Auto) 7.9 H Lymph # 0.4 L Seg Neutrophils % 78.6 H Seg Neuts % (Manual) Monocytes % (Manual) Lymphocytes # (Manual) POC ABG pH ABG pH POC ABG pCO2 POC ABG pO2 ABG pO2 131.3 H ABG HCO3 30.2 H ABG Base Excess 4.5 H ABG Hemoglobin 10.7 L Sodium Potassium Chloride Carbon Dioxide BUN Creatinine Glucose 167 H POC Glucose Calcium 8.3 L AST Total Creatine Kinase Albumin Triglycerides Influenza A (Rapid) 10/18/19 10/18/19 10/19/19 11:28 18:27 06:39 WBC RBC Hgb Hct MCV MCH RDW Lymph % (Auto) Faulk % (Auto) Lymph # Seg Neutrophils % Seg Neuts % (Manual) Monocytes % (Manual) Lymphocytes # (Manual) POC ABG pH 7.461 H 7.487 H ABG pH POC ABG pCO2 53.4 H 52.8 H 51.7 H POC ABG pO2 70 L 71 L ABG pO2 ABG HCO3 ABG Base Excess ABG Hemoglobin Sodium Potassium Chloride Carbon Dioxide BUN Creatinine Glucose POC Glucose Calcium AST Total Creatine Kinase Albumin Triglycerides Influenza A (Rapid) 10/19/19 10/20/19 10/20/19 23:25 05:31 09:08 WBC RBC Hgb Hct MCV MCH RDW Lymph % (Auto) Faulk % (Auto) Lymph # Seg Neutrophils % Seg Neuts % (Manual) Monocytes % (Manual) Lymphocytes # (Manual) POC ABG pH ABG pH POC ABG pCO2 POC ABG pO2 ABG pO2 ABG HCO3 ABG Base Excess ABG Hemoglobin Sodium Potassium Chloride Carbon Dioxide BUN Creatinine Glucose POC Glucose 203 H 144 H 163 H Calcium AST Total Creatine Kinase Albumin Triglycerides Influenza A (Rapid) 10/20/19 10/20/19 10/20/19 10:25 13:22 14:51 WBC RBC Hgb Hct MCV MCH RDW Lymph % (Auto) Faulk % (Auto) Lymph # Seg Neutrophils % Seg Neuts % (Manual) Monocytes % (Manual) Lymphocytes # (Manual) POC ABG pH 7.632 H ABG pH POC ABG pCO2 POC ABG pO2 74 L ABG pO2 ABG HCO3 ABG Base Excess ABG Hemoglobin Sodium 147 H Potassium Chloride Carbon Dioxide 31 H BUN Creatinine 0.5 L Glucose 154 H POC Glucose 178 H Calcium 8.2 L AST Total Creatine Kinase Albumin Triglycerides Influenza A (Rapid) 10/20/19 10/20/19 10/20/19 14:51 17:16 21:30 WBC 11.2 H RBC Hgb Hct MCV 78 L MCH 25 L RDW 23.9 H Lymph % (Auto) Faulk % (Auto) Lymph # Seg Neutrophils % Seg Neuts % (Manual) Monocytes % (Manual) Lymphocytes # (Manual) POC ABG pH ABG pH POC ABG pCO2 POC ABG pO2 ABG pO2 ABG HCO3 ABG Base Excess ABG Hemoglobin Sodium Potassium Chloride Carbon Dioxide BUN Creatinine Glucose POC Glucose 143 H 152 H Calcium AST Total Creatine Kinase Albumin Triglycerides Influenza A (Rapid) 10/20/19 10/21/19 10/21/19 22:52 05:55 08:27 WBC RBC Hgb Hct MCV MCH RDW Lymph % (Auto) Faulk % (Auto) Lymph # Seg Neutrophils % Seg Neuts % (Manual) Monocytes % (Manual) Lymphocytes # (Manual) POC ABG pH ABG pH POC ABG pCO2 POC ABG pO2 ABG pO2 ABG HCO3 ABG Base Excess ABG Hemoglobin Sodium Potassium Chloride Carbon Dioxide BUN Creatinine Glucose POC Glucose 179 H 115 H 131 H Calcium AST Total Creatine Kinase Albumin Triglycerides Influenza A (Rapid) 10/21/19 10/21/19 10/21/19 11:52 16:23 23:38 WBC RBC Hgb Hct MCV MCH RDW Lymph % (Auto) Faulk % (Auto) Lymph # Seg Neutrophils % Seg Neuts % (Manual) Monocytes % (Manual) Lymphocytes # (Manual) POC ABG pH ABG pH POC ABG pCO2 POC ABG pO2 ABG pO2 ABG HCO3 ABG Base Excess ABG Hemoglobin Sodium Potassium Chloride Carbon Dioxide BUN Creatinine Glucose POC Glucose 122 H 120 H 115 H Calcium AST Total Creatine Kinase Albumin Triglycerides Influenza A (Rapid) 10/22/19 10/22/19 10/22/19 00:35 05:19 06:10 WBC RBC Hgb Hct MCV MCH 25 L RDW 22.8 H Lymph % (Auto) Faulk % (Auto) Lymph # Seg Neutrophils % Seg Neuts % (Manual) Monocytes % (Manual) Lymphocytes # (Manual) POC ABG pH ABG pH 7.520 H POC ABG pCO2 POC ABG pO2 ABG pO2 64.4 L ABG HCO3 36.8 H ABG Base Excess 12.6 H ABG Hemoglobin 10.4 L Sodium Potassium Chloride Carbon Dioxide BUN Creatinine Glucose POC Glucose 108 H Calcium AST Total Creatine Kinase Albumin Triglycerides Influenza A (Rapid) 10/22/19 10/24/19 10/25/19 15:40 05:49 04:20 WBC RBC Hgb Hct MCV MCH RDW Lymph % (Auto) Faulk % (Auto) Lymph # Seg Neutrophils % Seg Neuts % (Manual) Monocytes % (Manual) Lymphocytes # (Manual) POC ABG pH 7.454 H ABG pH POC ABG pCO2 64.1 H 63.5 H POC ABG pO2 73 L ABG pO2 ABG HCO3 ABG Base Excess ABG Hemoglobin Sodium 136 L D Potassium Chloride 97.6 L Carbon Dioxide BUN 19 H Creatinine Glucose 125 H POC Glucose Calcium AST Total Creatine Kinase Albumin Triglycerides Influenza A (Rapid) 10/25/19 10/25/19 10/26/19 05:35 05:35 04:19 WBC RBC Hgb 10.0 L Hct MCV MCH 25 L RDW 22.0 H Lymph % (Auto) Faulk % (Auto) Lymph # Seg Neutrophils % Seg Neuts % (Manual) Monocytes % (Manual) Lymphocytes # (Manual) POC ABG pH ABG pH POC ABG pCO2 66.1 H POC ABG pO2 75 L ABG pO2 ABG HCO3 ABG Base Excess ABG Hemoglobin Sodium 147 H D Potassium Chloride Carbon Dioxide 34 H D BUN 23 H Creatinine 0.5 L Glucose 184 H POC Glucose Calcium AST Total Creatine Kinase Albumin Triglycerides Influenza A (Rapid) 10/26/19 10/26/19 10/26/19 05:20 05:20 12:44 WBC RBC Hgb 9.5 L Hct MCV MCH 25 L RDW 22.3 H Lymph % (Auto) Faulk % (Auto) Lymph # Seg Neutrophils % Seg Neuts % (Manual) Monocytes % (Manual) Lymphocytes # (Manual) POC ABG pH 7.501 H ABG pH POC ABG pCO2 54.7 H POC ABG pO2 69 L ABG pO2 ABG HCO3 ABG Base Excess ABG Hemoglobin Sodium 152 H Potassium Chloride Carbon Dioxide 33 H BUN 27 H Creatinine 0.6 L Glucose 135 H POC Glucose Calcium AST Total Creatine Kinase Albumin Triglycerides Influenza A (Rapid) 10/27/19 10/27/19 10/27/19 03:30 05:40 05:40 WBC RBC 3.62 L Hgb 9.4 L Hct 29.1 L MCV MCH 26 L RDW 21.7 H Lymph % (Auto) Faulk % (Auto) Lymph # Seg Neutrophils % Seg Neuts % (Manual) Monocytes % (Manual) Lymphocytes # (Manual) POC ABG pH ABG pH 7.472 H POC ABG pCO2 POC ABG pO2 ABG pO2 ABG HCO3 38.2 H ABG Base Excess 13.3 H ABG Hemoglobin 6.5 L Sodium 149 H Potassium 3.3 L Chloride Carbon Dioxide 31 H BUN 25 H Creatinine 0.5 L Glucose 142 H POC Glucose Calcium 8.2 L AST Total Creatine Kinase Albumin Triglycerides Influenza A (Rapid) 10/27/19 10/28/19 10/28/19 05:40 05:19 05:56 WBC RBC Hgb Hct MCV MCH RDW Lymph % (Auto) Faulk % (Auto) Lymph # Seg Neutrophils % Seg Neuts % (Manual) Monocytes % (Manual) Lymphocytes # (Manual) POC ABG pH 7.489 H ABG pH POC ABG pCO2 51.0 H POC ABG pO2 71 L ABG pO2 ABG HCO3 ABG Base Excess ABG Hemoglobin Sodium 153 H Potassium Chloride Carbon Dioxide 31 H BUN Creatinine 0.4 L Glucose 111 H POC Glucose Calcium 8.1 L AST Total Creatine Kinase Albumin Triglycerides 279 H Influenza A (Rapid) 10/29/19 10/29/19 03:54 04:21 WBC RBC Hgb Hct MCV MCH RDW Lymph % (Auto) [place]ulk % (Auto) Lymph # Seg Neutrophils % Seg Neuts % (Manual) Monocytes % (Manual) Lymphocytes # (Manual) POC ABG pH 7.506 H ABG pH POC ABG pCO2 53.6 H POC ABG pO2 ABG pO2 ABG HCO3 ABG Base Excess ABG Hemoglobin Sodium 150 H Potassium Chloride Carbon Dioxide BUN Creatinine 0.4 L Glucose 137 H POC Glucose Calcium AST Total Creatine Kinase Albumin Triglycerides Influenza A (Rapid) Allied health notes reviewed: RT
[2019-10-29] MEDS: MORPHINE 2 MG/1 ML INJ IV PRN ×3 (13:13→21:53)
--- NOTE | 2019-10-29 21:33 | Progress Note ---
Assessment and Plan - Patient Problems (1) Functional quadriplegia Current Visit: Yes Status: Acute Plan to address problem: Morbidly obese (2) Hypoxia Current Visit: Yes Status: Acute Plan to address problem: Patient with acute hypoxic and hypercapnic respiratory failure. Continue to wean. May difficulty secondary to obesity hypoventilation syndrome sleep apnea and infection. (3) Pulmonary edema Current Visit: Yes Status: Acute Plan to address problem: Continue diuresis as patient tolerates. Follow-up serial chest x-rays difficult to tell on physical exam secondary to weight follow-up chest x-ray in the a.m. to evaluate pulmonary opacities. (4) Respiratory failure Current Visit: Yes Status: Acute Plan to address problem: Acute hypoxic and hypercapnic respiratory failure secondary to obesity have the leg syndrome influenza a patient has finished treatment course with influenza A. (5) Shortness of breath Current Visit: Yes Status: Acute (6) Pneumonia Current Visit: Yes Status: Acute Plan to address problem: Patient positive influenza A has finished Tamiflu. Tracheal aspirate with Enterobacter patient on cefepime (7) Morbid obesity Current Visit: Yes Status: Acute Plan to address problem: Discussed with family about weight loss options. Bariatric surgery. History Interval history: Patient 49-year-old morbidly obese with a history of hypertension chronic lung disease seizure disorder lymphedema presents with acute respiratory failure secondary to influenza A versus pneumonia. Niece at the bedside all questions and concerns answered to her satisfaction. Patient attempt to make needs known but still minimally responsive. Currently on 8 of PEEP. Hospitalist Physical - Constitutional Vitals: Temp Pulse Resp BP Pulse Ox 100.8 F H 115 H 28 H 184/90 96 10/29/19 19:26 10/29/19 20:43 10/29/19 20:43 10/29/19 20:41 10/29/19 20:41 General appearance: Present: obese, other (Intubated on mechanical ventilation). Absent: mild distress - EENT Eyes: Present: PERRL, EOM intact ENT: other (Morbidly obese bedbound.) - Neck Neck: Present: supple, normal ROM - Respiratory Respiratory: bilateral: CTA (Patient is clear anteriorly unable to appreciate any sounds at the bases.), rhonchi - Extremities Extremities: no ischemia, pulses intact, pulses symmetrical, normal temperature, normal color Extremity abnormal: other (Patient with generalized edema morbidly obese) Peripheral Pulses: within normal limits - Abdominal General gastrointestinal: soft, non-tender, hypoactive bowel sounds, no hepatomegaly, no splenomegaly - Integumentary Integumentary: Present: clear, warm, dry - Neurologic Neurologic: other (Intubated sedated.) Results - Labs CBC & Chem 7: 10/27/19 05:40 10/30/19 09:54 Labs: Laboratory Last Values WBC 8.5 K/mm3 (4.5-11.0) 10/27/19 05:40 RBC 3.62 M/mm3 (3.65-5.03) L 10/27/19 05:40 Hgb 9.4 gm/dl (10.1-14.3) L 10/27/19 05:40 Hct 29.1 % (30.3-42.9) L 10/27/19 05:40 MCV 80 fl (79-97) 10/27/19 05:40 MCH 26 pg (28-32) L 10/27/19 05:40 MCHC 32 % (30-34) 10/27/19 05:40 RDW 21.7 % (13.2-15.2) H 10/27/19 05:40 Plt Count 288 K/mm3 (140-440) 10/27/19 05:40 Lymph % (Auto) 12.5 % (13.4-35.0) L 10/18/19 05:21 [place] % (Auto) 7.9 % (0.0-7.3) H 10/18/19 05:21 Eos % (Auto) 0.0 % (0.0-4.3) 10/18/19 05:21 Baso % (Auto) 1.0 % (0.0-1.8) 10/18/19 05:21 Lymph # 0.4 K/mm3 (1.2-5.4) L 10/18/19 05:21 [place] # 0.3 K/mm3 (0.0-0.8) 10/18/19 05:21 Eos # 0.0 K/mm3 (0.0-0.4) 10/18/19 05:21 Baso # 0.0 K/mm3 (0.0-0.1) 10/18/19 05:21 Add Manual Diff Complete 10/17/19 20:57 Total Counted 100 10/17/19 20:57 Seg Neutrophils % 78.6 % (40.0-70.0) H 10/18/19 05:21 Seg Neuts % (Manual) 77.0 % (40.0-70.0) H 10/17/19 20:57 Band Neutrophils % 0 % 10/17/19 20:57 Lymphocytes % (Manual) 14.0 % (13.4-35.0) 10/17/19 20:57 Reactive Lymphs % (Man) 0 % 10/17/19 20:57 Monocytes % (Manual) 9.0 % (0.0-7.3) H 10/17/19 20:57 Eosinophils % (Manual) 0 % (0.0-4.3) 10/17/19 20:57 Basophils % (Manual) 0 % (0.0-1.8) 10/17/19 20:57 Metamyelocytes % 0 % 10/17/19 20:57 Myelocytes % 0 % 10/17/19 20:57 Promyelocytes % 0 % 10/17/19 20:57 Blast Cells % 0 % 10/17/19 20:57 Nucleated RBC % Not Reportable 10/17/19 20:57 Seg Neutrophils # 2.6 K/mm3 (1.8-7.7) 10/18/19 05:21 Seg Neutrophils # Man 3.1 K/mm3 (1.8-7.7) 10/17/19 20:57 Band Neutrophils # 0.0 K/mm3 10/17/19 20:57 Lymphocytes # (Manual) 0.6 K/mm3 (1.2-5.4) L 10/17/19 20:57 Abs React Lymphs (Man) 0.0 K/mm3 10/17/19 20:57 Monocytes # (Manual) 0.4 K/mm3 (0.0-0.8) 10/17/19 20:57 Eosinophils # (Manual) 0.0 K/mm3 (0.0-0.4) 10/17/19 20:57 Basophils # (Manual) 0.0 K/mm3 (0.0-0.1) 10/17/19 20:57 Metamyelocytes # 0.0 K/mm3 10/17/19 20:57 Myelocytes # 0.0 K/mm3 10/17/19 20:57 Promyelocytes # 0.0 K/mm3 10/17/19 20:57 Blast Cells # 0.0 K/mm3 10/17/19 20:57 WBC Morphology Not Reportable 10/17/19 20:57 Hypersegmented Neuts Not Reportable 10/17/19 20:57 Hyposegmented Neuts Not Reportable 10/17/19 20:57 Hypogranular Neuts Not Reportable 10/17/19 20:57 Smudge Cells Not Reportable 10/17/19 20:57 Toxic Granulation Not Reportable 10/17/19 20:57 Toxic Vacuolation Not Reportable 10/17/19 20:57 Dohle Bodies Not Reportable 10/17/19 20:57 Pelger-Huet Anomaly Not Reportable 10/17/19 20:57 Krista Rods Not Reportable 10/17/19 20:57 Platelet Estimate Not Reportable 10/17/19 20:57 Clumped Platelets Not Reportable 10/17/19 20:57 Plt Clumps, EDTA Not Reportable 10/17/19 20:57 Large Platelets Not Reportable 10/17/19 20:57 Giant Platelets Not Reportable 10/17/19 20:57 Platelet Satelliting Not Reportable 10/17/19 20:57 Plt Morphology Comment Not Reportable 10/17/19 20:57 RBC Morphology Not Reportable 10/17/19 20:57 Dimorphic RBCs Not Reportable 10/17/19 20:57 Polychromasia Not Reportable 10/17/19 20:57 Hypochromasia 1+ 10/17/19 20:57 Poikilocytosis Not Reportable 10/17/19 20:57 Anisocytosis 2+ 10/17/19 20:57 Microcytosis Not Reportable 10/17/19 20:57 Macrocytosis Not Reportable 10/17/19 20:57 Spherocytes Not Reportable 10/17/19 20:57 Pappenheimer Bodies Not Reportable 10/17/19 20:57 Sickle Cells Not Reportable 10/17/19 20:57 Target Cells Not Reportable 10/17/19 20:57 Tear Drop Cells Not Reportable 10/17/19 20:57 Ovalocytes Not Reportable 10/17/19 20:57 Helmet Cells Not Reportable 10/17/19 20:57 [place] Bodies Not Reportable 10/17/19 20:57 [place] Rings Not Reportable 10/17/19 20:57 James Cells Not Reportable 10/17/19 20:57 Bite Cells Not Reportable 10/17/19 20:57 Crenated Cell Not Reportable 10/17/19 20:57 Elliptocytes Not Reportable 10/17/19 20:57 Acanthocytes (Spur) Not Reportable 10/17/19 20:57 Rouleaux Not Reportable 10/17/19 20:57 Hemoglobin C Crystals Not Reportable 10/17/19 20:57 Schistocytes Not Reportable 10/17/19 20:57 Malaria parasites Not Reportable 10/17/19 20:57 Alejandro Bodies Not Reportable 10/17/19 20:57 Hem Pathologist Commnt No 10/17/19 20:57 POC ABG pH 7.506 (7.35-7.45) H 10/29/19 03:54 ABG pH 7.472 pH Units (7.350-7.450) H 10/27/19 03:30 POC ABG pCO2 53.6 (35-45) H 10/29/19 03:54 ABG pCO2 53.6 mm Hg 10/27/19 03:30 POC ABG pO2 95 (80-105) 10/29/19 03:54 ABG pO2 88.6 mm Hg (80.0-90.0) 10/27/19 03:30 POC ABG HCO3 42.4 (22-26 mml/L) 10/29/19 03:54 ABG HCO3 38.2 mmol/L (20.0-26.0) H 10/27/19 03:30 POC ABG Total CO2 44 (23-27mmol/L) 10/29/19 03:54 POC ABG O2 Sat 98 10/29/19 03:54 ABG O2 Saturation 97.2 % (95.0-99.0) 10/27/19 03:30 ABG O2 Content 8.9 (0.0-44) 10/27/19 03:30 POC ABG Base Excess 19 ((-2) - (+3)mmol/L) 10/29/19 03:54 ABG Base Excess 13.3 mmol/L (-2.0-3.0) H 10/27/19 03:30 ABG Hemoglobin 6.5 gm/dl (12.0-16.0) L 10/27/19 03:30 ABG Carboxyhemoglobin 1.6 % (0.0-5.0) 10/27/19 03:30 ABG Methemoglobin 0.4 % (0.0-1.5) 10/27/19 03:30 Oxyhemoglobin 95.3 % (95.0-99.0) 10/27/19 03:30 FiO2 45 % 10/29/19 03:54 Sodium 150 mmol/L (137-145) H 10/29/19 04:21 Potassium 3.7 mmol/L (3.6-5.0) 10/29/19 04:21 Chloride 103.9 mmol/L (98-107) 10/29/19 04:21 Carbon Dioxide 29 mmol/L (22-30) 10/29/19 04:21 Anion Gap 21 mmol/L 10/29/19 04:21 BUN 14 mg/dL (7-17) 10/29/19 04:21 Creatinine 0.4 mg/dL (0.7-1.2) L 10/29/19 04:21 Estimated GFR > 60 ml/min 10/29/19 04:21 BUN/Creatinine Ratio 35 % 10/29/19 04:21 Glucose 137 mg/dL (65-100) H 10/29/19 04:21 POC Glucose 108 (70-105) H 10/22/19 05:19 Calcium 8.6 mg/dL (8.4-10.2) 10/29/19 04:21 Total Bilirubin 0.20 mg/dL (0.1-1.2) 10/17/19 20:57 AST 57 units/L (5-40) H 10/17/19 20:57 ALT 22 units/L (7-56) 10/17/19 20:57 Alkaline Phosphatase 67 units/L (35-129) 10/17/19 20:57 Total Creatine Kinase 857 units/L (30-135) H 10/17/19 20:57 CK-MB (CK-2) 2.6 ng/mL (0.0-4.0) 10/17/19 20:57 CK-MB (CK-2) Rel Index 0.3 (0-4) 10/17/19 20:57 Troponin T < 0.010 ng/mL (0.00-0.029) 10/17/19 20:57 NT-Pro-B Natriuret Pep 317.6 pg/mL (0-450) 10/17/19 20:57 Total Protein 7.1 g/dL (6.3-8.2) 10/17/19 20:57 Albumin 3.0 g/dL (3.9-5) L 10/17/19 20:57 Albumin/Globulin Ratio 0.7 % 10/17/19 20:57 Triglycerides 279 mg/dL (2-149) H 10/27/19 05:40 Procalcitonin 0.06 ng/mL (<0.15) 10/20/19 14:51 Influenza A (Rapid) Positive (Negative) A 10/17/19 Unknown Influenza B (Rapid) Negative (Negative) 10/17/19 Unknown - Imaging and Cardiology Chest x-ray: image reviewed Abdominal x-ray: image reviewed Active Medications - Current Medications Current Medications: Generic Name Dose Route Start Last Admin Trade Name Freq PRN Reason Stop Dose Admin Acetaminophen 650 mg 10/27/19 08:38 10/29/19 21:29 Tylenol PO 650 mg Q4H PRN Administration Non Cardiac Pain or Temp>100.5 Albuterol 2.5 mg 10/17/19 22:47 10/19/19 14:34 Proventil IH 2.5 mg Q3HRT PRN Administration Shortness Of Breath Albuterol/Ipratropium 1 ampul 10/19/19 20:00 10/29/19 20:38 Duoneb *Not For Prn Use* IH 1 ampul TIDRT EDI Administration Lipase/Protease/Amylase 1 each 10/24/19 11:54 Pancreyu Irizarry 10,500 Unit FEEDTUBE PRN PRN For Clogged Feeding Tube Fentanyl 50 mcg 10/23/19 17:29 Sublimaze IV Q10MIN PRN ANALGESIA Heparin Sodium (Porcine) 5,000 unit 10/18/19 06:00 10/29/19 21:28 Heparin SUB-Q 5,000 unit Q8HR EDI Administration Hydrophilic Ointment 1 applic 10/23/19 17:29 10/27/19 00:29 Vaseline Lip Therapy TP 1 applic Q2HR PRN Administration Dry Lips Fentanyl Citrate 2,000 mcg in 100 mls @ 13.25 mls/hr 10/23/19 18:00 10/29/19 18:41 Fentanyl Drip Premix IV 3 mcg/kg/hr TITR EDI 39.75 mls/hr Administration Protocol 1 MCG/KG/HR Propofol 1,000 mg in 100 mls @ 7.95 mls/hr 10/23/19 18:00 10/28/19 18:39 Diprivan 10 Mg/Ml IV Infused TITR EDI Titration Protocol 5 MCG/KG/MIN Cefepime HCl 2 gm in 100 mls @ 200 mls/hr 10/24/19 13:00 10/29/19 21:23 Cefepime/Ns 2 Gm/100 Ml IV 200 mls/hr Q8H EDI Administration Protocol Labetalol HCl 10 mg 10/24/19 14:32 Labetalol IV Q4H PRN Blood Pressure Lansoprazole 30 mg 10/26/19 10:00 10/29/19 09:25 Prevacid Solutab FEEDTUBE 30 mg QDAY EDI Administration Morphine Sulfate 2 mg 10/17/19 22:47 10/29/19 17:46 Morphine IV 2 mg Q4H PRN Administration Pain, Moderate (4-6) Multi-Ingred Cream/Lotion/Oil/Oint 1 applic 10/23/19 17:29 Artificial Tears Ophth Oint OU Q4HR PRN Dry Eye(s) Ondansetron HCl 4 mg 10/17/19 22:47 10/29/19 02:45 Zofran IV 4 mg Q8H PRN Administration Nausea And Vomiting Simple Syrup 15 ml 10/24/19 11:54 Simple Syrup FEEDTUBE PRN PRN Hypoglycemia Simple Syrup 30 ml 10/24/19 11:54 Simple Syrup FEEDTUBE PRN PRN Hypoglycemia Sodium Bicarbonate 325 mg 10/24/19 11:54 Sodium Bicarbonate FEEDTUBE PRN PRN For Clogged Feeding Tube Sodium Chloride 10 ml 10/18/19 10:00 10/29/19 21:28 Sodium Chloride Flush Syringe 10 Ml IV 10 ml BID EDI Administration Sodium Chloride 10 ml 10/17/19 22:47 Sodium Chloride Flush Syringe 10 Ml IV PRN PRN LINE FLUSH Nutrition/Malnutrition Assess - Dietary Evaluation Nutrition/Malnutrition Findings: Nutrition Notes Start: 10/19/19 13:20 Freq: Status: Active Protocol: Document 10/26/19 11:35 LM (Rec: 10/26/19 11:46 LM [email or web address]) Nutrition Notes Initial or Follow up Reassessment Current Diagnosis Hypertension,Respiratory Failure Other Pertinent Diagnosis Influlenza A pneumonia, lymphedema, pulmonary edema, SOB, DVT Current Diet Vital AF 1.2 at 65 ml/hr Labs/Tests Na 152 BUN 27 Cr 0.6 BG 135 Pertinent Medications Lasix Propofol (210 kcal) Height 5 ft 6 in Weight 236.8 kg [place] Body Weight (kg) 59.09 BMI 84.2 Weight change and time frame Wt change noted. Possibly due to fluid. Subjective/Other Information Vital at goal. Will increase flush for hypernatremia. Percent of energy/protein needs met: 99%/79% Burn Absent Trauma Absent Current % PO Negligible #2 Nutrition Diagnosis Inadequate oral intake Diagnosis Progress(for reassessment Continues documentation) Is patient on ventilator? Yes Is Patient Ambulatory and/or Out of Bed No REE-([facility]-confined to bed) 3619.464 Kcal/Kg value to use for calculation 8 Approximate Energy Requirements Using 1894 kcal/Kg Calculation Used for Recommendations Kcal/kg Additional Notes Protein needs: 148g (up to 2. 5g/kg IBW 59 kg) Fluid: 1 ml/kcal Nutrition Intervention Change Diet Order: TF Nutrition Support: Vital AF 1.2 at 65 ml/hr Flush 150 ml q4h for hypernatremia Flush 100 ml q4h once hypernatremia resolves Kcal 1,872 Protein (gm) 117 Fluid (mL) 1,265 Goal #1 Meet at least 75% of energy and protein needs Anticipated Discharge Needs: unable to determine at this time Follow-Up By: 10/30/19 Additional Comments F/U for TF tolerance, Na lab
[2019-10-30] MEDS: fentaNYL DRIP Premix 2,000 MCG/100 ML BAG IV SCH ×4 (00:12→22:06)
[2019-10-30] MEDS: MORPHINE 2 MG/1 ML INJ IV PRN ×3 (02:33→14:18)
--- NOTE | 2019-10-30 03:52 | XRay Report ---
CHEST 1 VIEW, 10/30/2019 2:22 AM CLINICAL INFORMATION/INDICATION: Respiratory failure COMPARISON: Chest radiograph, 10/29/2019 at 2:07 AM FINDINGS: SUPPORT DEVICES: Endotracheal tube remains in stable position. An esophagogastric tube is present, al though its distal tip is not well-visualized. HEART: The cardiac silhouette is not well visualized secondary to lung disease. LUNGS/PLEURA: Diffuse bilateral pulmonary opacities do not appear significantly changed. ADDITIONAL FINDINGS: No additional acute findings. IMPRESSION: 1. Stable appearance of bilateral pulmonary opacities which may be secondary to pulmonary edema. Signer Name: Kacie Willard MD Signed: 10/30/2019 3:48 AM Workstation Name: [id number]
[2019-10-30] MEDS: CEFEPIME/NS 2 GM/100 ML 2 GM/100 ML BAG IV SCH (05:24)
[2019-10-30] MEDS: HEPARIN 5,000 UNIT/1 ML VIAL SUB-Q SCH ×3 (05:24→22:06)
[2019-10-30] MEDS: IPRATROPIUM/ALBUTEROL SULFATE 3 ML AMPUL.NEB IH SCH ×3 (08:07→21:14)
--- NOTE | 2019-10-30 08:49 | Progress Note ---
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 Functional quadriplegia h/o HTN - prn maalox (1st dose now) - send cardiac enzymes and address - 12 lead EKG reviewed; non-specific ST-T wave changes noted - cardiology evaluation for H/O CHF - follow Baeza-cultures (Trend fevers with symptom management/cooling measures) - s/p completed anti-viral therapy, on antibiotics per ID service - Continue with diuresis while monitoring renal function & electrolytes - continue Free water flushes and hypotonic solution for hypernatremia -Continue with sedation, with daily SAT (Titrate sedation to RASS 0 to -1) -Continue mobility protocol, off loading for pressure ulcer prevention- high risk patient - Specialty bed - VAP bundle addresed (Aspiration precautions, HOB>40 degrees) - Wean FIO2 for O2 sats 88-90%. Once FIO2 to down to 50% with adequate oxygenation, will start weaning PEEP - Daily assessment for readiness to wean - Oxygen restrictive strategies - Bronchodilators with pulmonary hygiene per RT & per protocol - continue tube feedings via the small bowel feeding tube - Continue airborne isolation - Continue with VTE prophylaxis - Continue stress ulcer prophylaxis - Continue with Accuchecks with glycemic control for SSI (While critically ill target blood glucose of 140-180 mg/dL; avoid hypoglycemia) - Continue to monitor hemodynamics closely - Continue to monitor electrolyte profile closely and replete as indicated - Chronic home medications, resume as clinically indicated - short term Blanchard catheter in this critically ill patient, with poor urine output, requiring accurate intake and output monitoring. She acutely de- saturates with minimal movement - PT/OT - Weight loss and life style modifications on discharge. May need surgical bariatric intervention (discussed this with her and her sister- patient currently does not have health insurance but has applied) - Out patient evaluation for sleep apnea Discussed with RT and RN CONDITION: CRITICAL PROGNOSIS: GUARDED CODE STATUS: FULL CODE The high probability of a clinically significant, sudden or life-threatening deterioration of the [respiratory, cardiovascular,] system(s) required my full and direct attention, intervention and personal management. The aggregate critical care time was [35] minutes without overlap. Time includes spent on; [x] Data Review and interpretation [x] Patient assessment and monitoring of vital signs [x] Documentation [x] Medication orders and management Subjective Date of service: 10/30/19 Principal diagnosis: Ac. hypoxic-hypercapnic resp failure; Influenza; extreme obesity; ? DEAN Interval history: Patient is seen today for: Acute hypoxic-hypercapnic respiratory failure; influenza infection; extreme obesity; probable DEAN Seen and examined at bedside; 24hour events reviewed; nursing and respiratory care staff consulted; no adverse overnight events reported to me; resting peacefully in bed; no emesis or overt aspiration; complains of chest pain vs GERD pain; No N/V/F/C; remains on MVS Objective Vital Signs - 12hr 10/29/19 10/29/19 10/29/19 21:01 22:00 23:00 Temperature Pulse Rate 112 H 113 H 109 H Pulse Rate [ From Monitor] Respiratory 28 H 28 H 28 H Rate Blood Pressure 136/76 146/77 140/81 O2 Sat by Pulse 93 90 87 Oximetry 10/29/19 10/29/19 10/30/19 23:15 23:18 00:00 Temperature 99.5 F Pulse Rate 112 H 117 H Pulse Rate [ 117 H From Monitor] Respiratory 28 H 22 Rate Blood Pressure 140/81 O2 Sat by Pulse 95 94 Oximetry 10/30/19 10/30/19 10/30/19 00:01 00:10 01:00 Temperature Pulse Rate 117 H 126 H 111 H Pulse Rate [ From Monitor] Respiratory 22 24 Rate Blood Pressure 161/91 161/91 146/79 O2 Sat by Pulse 94 96 89 Oximetry 10/30/19 10/30/19 10/30/19 02:00 03:00 03:38 Temperature 98.1 F Pulse Rate 112 H 102 H Pulse Rate [ From Monitor] Respiratory 28 H 28 H Rate Blood Pressure 143/86 139/76 O2 Sat by Pulse 89 87 Oximetry 10/30/19 10/30/19 10/30/19 04:00 04:28 05:00 Temperature Pulse Rate 102 H 112 H 107 H Pulse Rate [ 102 H From Monitor] Respiratory 28 H 0 L 28 H Rate Blood Pressure 139/76 142/81 154/83 O2 Sat by Pulse 93 95 89 Oximetry 10/30/19 10/30/19 10/30/19 06:00 07:00 08:16 Temperature Pulse Rate 113 H 113 H 112 H Pulse Rate [ From Monitor] Respiratory 25 H 28 H Rate Blood Pressure 149/80 154/79 132/72 O2 Sat by Pulse 89 89 96 Oximetry Constitutional: asleep (but rousable, opens eyes to verbal stimuli), appears uncomfortable, other (nods appropriately to questions, ETT at 24cm, no leak; morbidly obese) Eyes: non-icteric ENT: oropharynx moist, other (small bowel feeding tube in nares) Neck: supple, no lymphadenopathy, no JVD, other (short neck, large circunference) Effort: mildly labored Ascultation: Bilateral: diminished breath sounds, rhonchi Percussion: Bilateral: not dull Cardiovascular: regular rate and rhythm, other (S1,S2) Gastrointestinal: normoactive bowel sounds, soft, non-tender, non-distended Integumentary: normal Extremities: no cyanosis, no edema, pink and warm, pulses normal Neurologic: normal mental status, non-focal exam, pupils equal and round, CN II- XII normal, motor strength normal and Psychiatric: mood appropriate, affect normal CBC and BMP: 11/01/19 05:30 11/01/19 05:30 ABG, PT/INR, D-dimer: ABG POC ABG pH 7.506 (7.35-7.45) H 10/29/19 03:54 ABG pH 7.472 pH Units (7.350-7.450) H 10/27/19 03:30 POC ABG pCO2 53.6 (35-45) H 10/29/19 03:54 ABG pCO2 53.6 mm Hg 10/27/19 03:30 POC ABG pO2 95 (80-105) 10/29/19 03:54 ABG pO2 88.6 mm Hg (80.0-90.0) 10/27/19 03:30 POC ABG HCO3 42.4 (22-26 mml/L) 10/29/19 03:54 POC ABG Total CO2 44 (23-27mmol/L) 10/29/19 03:54 POC ABG O2 Sat 98 10/29/19 03:54 ABG O2 Saturation 97.2 % (95.0-99.0) 10/27/19 03:30 Abnormal lab findings: Abnormal Labs 10/17/19 10/17/19 10/17/19 20:57 20:57 Unknown WBC 4.0 L RBC Hgb Hct MCV 78 L MCH 25 L RDW 24.7 H Lymph % (Auto) Casey % (Auto) Lymph # Seg Neutrophils % Seg Neuts % (Manual) 77.0 H Monocytes % (Manual) 9.0 H Lymphocytes # (Manual) 0.6 L POC ABG pH ABG pH POC ABG pCO2 POC ABG pO2 ABG pO2 ABG HCO3 ABG Base Excess ABG Hemoglobin Sodium Potassium 3.5 L Chloride Carbon Dioxide BUN Creatinine 0.6 L Glucose 147 H POC Glucose Calcium 7.9 L AST 57 H Total Creatine Kinase 857 H Albumin 3.0 L Triglycerides Influenza A (Rapid) Positive A 10/18/19 10/18/19 10/18/19 05:21 05:21 09:19 WBC 3.3 L RBC Hgb Hct MCV MCH 25 L RDW 24.3 H Lymph % (Auto) 12.5 L Casey % (Auto) 7.9 H Lymph # 0.4 L Seg Neutrophils % 78.6 H Seg Neuts % (Manual) Monocytes % (Manual) Lymphocytes # (Manual) POC ABG pH ABG pH POC ABG pCO2 POC ABG pO2 ABG pO2 131.3 H ABG HCO3 30.2 H ABG Base Excess 4.5 H ABG Hemoglobin 10.7 L Sodium Potassium Chloride Carbon Dioxide BUN Creatinine Glucose 167 H POC Glucose Calcium 8.3 L AST Total Creatine Kinase Albumin Triglycerides Influenza A (Rapid) 10/18/19 10/18/19 10/19/19 11:28 18:27 06:39 WBC RBC Hgb Hct MCV MCH RDW Lymph % (Auto) Casey % (Auto) Lymph # Seg Neutrophils % Seg Neuts % (Manual) Monocytes % (Manual) Lymphocytes # (Manual) POC ABG pH 7.461 H 7.487 H ABG pH POC ABG pCO2 53.4 H 52.8 H 51.7 H POC ABG pO2 70 L 71 L ABG pO2 ABG HCO3 ABG Base Excess ABG Hemoglobin Sodium Potassium Chloride Carbon Dioxide BUN Creatinine Glucose POC Glucose Calcium AST Total Creatine Kinase Albumin Triglycerides Influenza A (Rapid) 10/19/19 10/20/19 10/20/19 23:25 05:31 09:08 WBC RBC Hgb Hct MCV MCH RDW Lymph % (Auto) Casey % (Auto) Lymph # Seg Neutrophils % Seg Neuts % (Manual) Monocytes % (Manual) Lymphocytes # (Manual) POC ABG pH ABG pH POC ABG pCO2 POC ABG pO2 ABG pO2 ABG HCO3 ABG Base Excess ABG Hemoglobin Sodium Potassium Chloride Carbon Dioxide BUN Creatinine Glucose POC Glucose 203 H 144 H 163 H Calcium AST Total Creatine Kinase Albumin Triglycerides Influenza A (Rapid) 10/20/19 10/20/19 10/20/19 10:25 13:22 14:51 WBC RBC Hgb Hct MCV MCH RDW Lymph % (Auto) Casey % (Auto) Lymph # Seg Neutrophils % Seg Neuts % (Manual) Monocytes % (Manual) Lymphocytes # (Manual) POC ABG pH 7.632 H ABG pH POC ABG pCO2 POC ABG pO2 74 L ABG pO2 ABG HCO3 ABG Base Excess ABG Hemoglobin Sodium 147 H Potassium Chloride Carbon Dioxide 31 H BUN Creatinine 0.5 L Glucose 154 H POC Glucose 178 H Calcium 8.2 L AST Total Creatine Kinase Albumin Triglycerides Influenza A (Rapid) 10/20/19 10/20/19 10/20/19 14:51 17:16 21:30 WBC 11.2 H RBC Hgb Hct MCV 78 L MCH 25 L RDW 23.9 H Lymph % (Auto) Casey % (Auto) Lymph # Seg Neutrophils % Seg Neuts % (Manual) Monocytes % (Manual) Lymphocytes # (Manual) POC ABG pH ABG pH POC ABG pCO2 POC ABG pO2 ABG pO2 ABG HCO3 ABG Base Excess ABG Hemoglobin Sodium Potassium Chloride Carbon Dioxide BUN Creatinine Glucose POC Glucose 143 H 152 H Calcium AST Total Creatine Kinase Albumin Triglycerides Influenza A (Rapid) 10/20/19 10/21/19 10/21/19 22:52 05:55 08:27 WBC RBC Hgb Hct MCV MCH RDW Lymph % (Auto) Casey % (Auto) Lymph # Seg Neutrophils % Seg Neuts % (Manual) Monocytes % (Manual) Lymphocytes # (Manual) POC ABG pH ABG pH POC ABG pCO2 POC ABG pO2 ABG pO2 ABG HCO3 ABG Base Excess ABG Hemoglobin Sodium Potassium Chloride Carbon Dioxide BUN Creatinine Glucose POC Glucose 179 H 115 H 131 H Calcium AST Total Creatine Kinase Albumin Triglycerides Influenza A (Rapid) 10/21/19 10/21/19 10/21/19 11:52 16:23 23:38 WBC RBC Hgb Hct MCV MCH RDW Lymph % (Auto) Casey % (Auto) Lymph # Seg Neutrophils % Seg Neuts % (Manual) Monocytes % (Manual) Lymphocytes # (Manual) POC ABG pH ABG pH POC ABG pCO2 POC ABG pO2 ABG pO2 ABG HCO3 ABG Base Excess ABG Hemoglobin Sodium Potassium Chloride Carbon Dioxide BUN Creatinine Glucose POC Glucose 122 H 120 H 115 H Calcium AST Total Creatine Kinase Albumin Triglycerides Influenza A (Rapid) 10/22/19 10/22/19 10/22/19 00:35 05:19 06:10 WBC RBC Hgb Hct MCV MCH 25 L RDW 22.8 H Lymph % (Auto) Casey % (Auto) Lymph # Seg Neutrophils % Seg Neuts % (Manual) Monocytes % (Manual) Lymphocytes # (Manual) POC ABG pH ABG pH 7.520 H POC ABG pCO2 POC ABG pO2 ABG pO2 64.4 L ABG HCO3 36.8 H ABG Base Excess 12.6 H ABG Hemoglobin 10.4 L Sodium Potassium Chloride Carbon Dioxide BUN Creatinine Glucose POC Glucose 108 H Calcium AST Total Creatine Kinase Albumin Triglycerides Influenza A (Rapid) 10/22/19 10/24/19 10/25/19 15:40 05:49 04:20 WBC RBC Hgb Hct MCV MCH RDW Lymph % (Auto) Casey % (Auto) Lymph # Seg Neutrophils % Seg Neuts % (Manual) Monocytes % (Manual) Lymphocytes # (Manual) POC ABG pH 7.454 H ABG pH POC ABG pCO2 64.1 H 63.5 H POC ABG pO2 73 L ABG pO2 ABG HCO3 ABG Base Excess ABG Hemoglobin Sodium 136 L D Potassium Chloride 97.6 L Carbon Dioxide BUN 19 H Creatinine Glucose 125 H POC Glucose Calcium AST Total Creatine Kinase Albumin Triglycerides Influenza A (Rapid) 10/25/19 10/25/19 10/26/19 05:35 05:35 04:19 WBC RBC Hgb 10.0 L Hct MCV MCH 25 L RDW 22.0 H Lymph % (Auto) Casey % (Auto) Lymph # Seg Neutrophils % Seg Neuts % (Manual) Monocytes % (Manual) Lymphocytes # (Manual) POC ABG pH ABG pH POC ABG pCO2 66.1 H POC ABG pO2 75 L ABG pO2 ABG HCO3 ABG Base Excess ABG Hemoglobin Sodium 147 H D Potassium Chloride Carbon Dioxide 34 H D BUN 23 H Creatinine 0.5 L Glucose 184 H POC Glucose Calcium AST Total Creatine Kinase Albumin Triglycerides Influenza A (Rapid) 10/26/19 10/26/19 10/26/19 05:20 05:20 12:44 WBC RBC Hgb 9.5 L Hct MCV MCH 25 L RDW 22.3 H Lymph % (Auto) Casey % (Auto) Lymph # Seg Neutrophils % Seg Neuts % (Manual) Monocytes % (Manual) Lymphocytes # (Manual) POC ABG pH 7.501 H ABG pH POC ABG pCO2 54.7 H POC ABG pO2 69 L ABG pO2 ABG HCO3 ABG Base Excess ABG Hemoglobin Sodium 152 H Potassium Chloride Carbon Dioxide 33 H BUN 27 H Creatinine 0.6 L Glucose 135 H POC Glucose Calcium AST Total Creatine Kinase Albumin Triglycerides Influenza A (Rapid) 10/27/19 10/27/19 10/27/19 03:30 05:40 05:40 WBC RBC 3.62 L Hgb 9.4 L Hct 29.1 L MCV MCH 26 L RDW 21.7 H Lymph % (Auto) Casey % (Auto) Lymph # Seg Neutrophils % Seg Neuts % (Manual) Monocytes % (Manual) Lymphocytes # (Manual) POC ABG pH ABG pH 7.472 H POC ABG pCO2 POC ABG pO2 ABG pO2 ABG HCO3 38.2 H ABG Base Excess 13.3 H ABG Hemoglobin 6.5 L Sodium 149 H Potassium 3.3 L Chloride Carbon Dioxide 31 H BUN 25 H Creatinine 0.5 L Glucose 142 H POC Glucose Calcium 8.2 L AST Total Creatine Kinase Albumin Triglycerides Influenza A (Rapid) 10/27/19 10/28/19 10/28/19 05:40 05:19 05:56 WBC RBC Hgb Hct MCV MCH RDW Lymph % (Auto) Casey % (Auto) Lymph # Seg Neutrophils % Seg Neuts % (Manual) Monocytes % (Manual) Lymphocytes # (Manual) POC ABG pH 7.489 H ABG pH POC ABG pCO2 51.0 H POC ABG pO2 71 L ABG pO2 ABG HCO3 ABG Base Excess ABG Hemoglobin Sodium 153 H Potassium Chloride Carbon Dioxide 31 H BUN Creatinine 0.4 L Glucose 111 H POC Glucose Calcium 8.1 L AST Total Creatine Kinase Albumin Triglycerides 279 H Influenza A (Rapid) 10/29/19 10/29/19 03:54 04:21 WBC RBC Hgb Hct MCV MCH RDW Lymph % (Auto) Casey % (Auto) Lymph # Seg Neutrophils % Seg Neuts % (Manual) Monocytes % (Manual) Lymphocytes # (Manual) POC ABG pH 7.506 H ABG pH POC ABG pCO2 53.6 H POC ABG pO2 ABG pO2 ABG HCO3 ABG Base Excess ABG Hemoglobin Sodium 150 H Potassium Chloride Carbon Dioxide BUN Creatinine 0.4 L Glucose 137 H POC Glucose Calcium AST Total Creatine Kinase Albumin Triglycerides Influenza A (Rapid) Chest x-ray: image reviewed (modertae pulmonary edema with cardiomegaly) Allied health notes reviewed: RT
[2019-10-30] MEDS ORDERED: MAGNESIUM HYDROXIDE (MOM) ORAL LIQD UDC PO PRN (10:04)
[2019-10-30 10:39] LABS: BUN/Creatinine Ratio 38; Blood Urea Nitrogen 15 mg/dL (7-17); Calcium 8.4 mg/dL (8.4-10.2); Hemolysis Index 17
[2019-10-30] MEDS: LANSOPRAZOLE 30 MG SOLUTAB FEEDTUBE SCH ×3 (10:49→22:07)
[2019-10-30 10:50] LABS: Creatine Kinase MB < 1.0 ng/mL (0.0-4.0)
[2019-10-30] MEDS: TAMSULOSIN 0.4 MG CAP PO SCH (11:01)
[2019-10-30] MEDS: SODIUM BICARBONATE 325 MG TAB FEEDTUBE PRN ×2 (11:17→14:59)
[2019-10-30] MEDS: LIPASE 10,500/PROTEASE 25,000/AMYLASE 43,750 (UNITS) DR CAP FEEDTUBE PRN ×2 (11:18→14:59)
--- NOTE | 2019-10-30 12:12 | Progress Note ---
Assessment and Plan Cultures: 10/17/2019 blood culture: No growth 10/17/2019 influenza A: Positive 10/23/2019 Resp culture: Enterobacter 10/25/2019 tracheal aspirate: Enterobacter 10/25/2019 blood culture: no growth thus far A/P: 49-year-old female with morbid obesity, hypertension, lymphedema, functional quadriplegia and sleep apnea admitted with: #Influenza A with acute respiratory failure: completed high dose prolonged Tamiflu course. Intubated, on mechanical ventilation. #Superimposed pneumonia: resp culture with GNR, patient on Cefepime. #Extreme morbid obesity: BMI is 94.3. ?Cefepime 2 gm q8 hrs may not be adequate, but higher doses could increase risk of seizures. Recs: discussed with ICU pharmacist, will increase Cefepime to a 6 gm daily continuous infusion to cover the Enterobacter given super-morbid obesity Henny Nayak MD, FACP [facility] C: [phone] O: [phone] F: [phone] Subjective Date of service: 10/30/19 Principal diagnosis: acute respiratory distress Interval history: Low grade fevers continue. Patient remains intubated, on the vent. No other issues per RN. Objective - Exam Narrative Exam: Physical Exam: Constitutional: sedated, intubated. Morbidly obese Head, Ears, Nose: Normocephalic, atraumatic. External ears, nose normal Eyes: Conjunctivae/corneas clear. No icterus. No ptosis. Neck: intubated Oral: intubated Cardiovascular: S1, S2 normal. Respiratory: Good air entry, clear to auscultation bilaterally GI: Soft, non-tender; bowel sounds normal. No peritoneal signs Musculoskeletal: No pedal edema, no cyanosis. Skin: No rash or abscess. No wounds Hem/Lymphatic: No palpable cervical or supraclavicular nodes. No lymphangitis Psych: no agitation Neurological: sedated, intubated, on vent - Constitutional Vitals: Vital Signs Temp Pulse Resp BP Pulse Ox 100.1 F H 115 H 28 H 139/73 93 10/30/19 08:00 10/30/19 11:00 10/30/19 11:00 10/30/19 11:00 10/30/19 11:52 Temperature -Last 24 Hours Temperature 100.1 F Temperature 98.1 F Temperature 99.5 F Temperature 100.8 F Temperature 100.9 F - Labs CBC & Chem 7: 10/27/19 05:40 10/30/19 09:54 Labs: Abnormal lab results 10/30/19 10/30/19 Range/Units 04:48 09:54 POC ABG pH 7.508 H (7.35-7.45) POC ABG pCO2 49.6 H (35-45) Sodium 148 H (137-145) mmol/L Creatinine 0.4 L (0.7-1.2) mg/dL Glucose 156 H (65-100) mg/dL
[2019-10-30] MEDS: SODIUM CHLORIDE 0.9% IV SCH (14:17)
[2019-10-30] MEDS: CEFEPIME IV SCH (14:17)
--- NOTE | 2019-10-30 21:51 | Progress Note ---
Assessment and Plan - Patient Problems (1) Functional quadriplegia Current Visit: Yes Status: Acute Plan to address problem: Morbidly obese (2) Hypoxia Current Visit: Yes Status: Acute Plan to address problem: Chest x-ray consistent with possible pulmonary edema. We will continue gentle diuresis. (3) Pulmonary edema Current Visit: Yes Status: Acute Plan to address problem: We will treat with Lasix 40 IV x1. (4) Respiratory failure Current Visit: Yes Status: Acute Plan to address problem: Acute hypoxic and hypercapnic respiratory failure secondary to obesity have the leg syndrome influenza a patient has finished treatment course with influenza A. (5) Shortness of breath Current Visit: Yes Status: Acute (6) Pneumonia Current Visit: Yes Status: Acute Plan to address problem: Pneumonia appears to have resolved. Patient tracheal aspirate with Enterobacter on cefepime. (7) Morbid obesity Current Visit: Yes Status: Acute Plan to address problem: Discussed with family about weight loss options. Bariatric surgery. History Interval history: No new events overnight. Pasting patient resting comfortably. Family member at bedside asked questions about decrease in PEEP patient afebrile remains intubated. PEEP of 10 Hospitalist Physical - Constitutional Vitals: Temp Pulse Resp BP Pulse Ox 100.3 F H 112 H 23 141/74 96 10/30/19 19:52 10/30/19 21:14 10/30/19 21:14 10/30/19 20:56 10/30/19 20:56 General appearance: Present: obese, other (Intubated on mechanical ventilation). Absent: mild distress - EENT Eyes: Present: PERRL, EOM intact ENT: clear oral mucosa, dentition normal, oropharyngeal erythema, poor dentition, thrush - Neck Neck: Present: supple, normal ROM - Respiratory Respiratory: bilateral: diminished (Limit poor inspiratory effort.) - Cardiovascular Rhythm: regular Heart Sounds: Present: S1 & S2 - Extremities Extremities: no ischemia, pulses intact, pulses symmetrical, No edema, normal temperature, normal color Peripheral Pulses: within normal limits - Abdominal General gastrointestinal: soft, non-tender, non-distended, other (Obese) - Integumentary Integumentary: Present: clear, warm, dry Results - Labs CBC & Chem 7: 10/27/19 05:40 10/30/19 09:54 Labs: Laboratory Last Values WBC 8.5 K/mm3 (4.5-11.0) 10/27/19 05:40 RBC 3.62 M/mm3 (3.65-5.03) L 10/27/19 05:40 Hgb 9.4 gm/dl (10.1-14.3) L 10/27/19 05:40 Hct 29.1 % (30.3-42.9) L 10/27/19 05:40 MCV 80 fl (79-97) 10/27/19 05:40 MCH 26 pg (28-32) L 10/27/19 05:40 MCHC 32 % (30-34) 10/27/19 05:40 RDW 21.7 % (13.2-15.2) H 10/27/19 05:40 Plt Count 288 K/mm3 (140-440) 10/27/19 05:40 Lymph % (Auto) 12.5 % (13.4-35.0) L 10/18/19 05:21 [place] % (Auto) 7.9 % (0.0-7.3) H 10/18/19 05:21 Eos % (Auto) 0.0 % (0.0-4.3) 10/18/19 05:21 Baso % (Auto) 1.0 % (0.0-1.8) 10/18/19 05:21 Lymph # 0.4 K/mm3 (1.2-5.4) L 10/18/19 05:21 [place] # 0.3 K/mm3 (0.0-0.8) 10/18/19 05:21 Eos # 0.0 K/mm3 (0.0-0.4) 10/18/19 05:21 Baso # 0.0 K/mm3 (0.0-0.1) 10/18/19 05:21 Add Manual Diff Complete 10/17/19 20:57 Total Counted 100 10/17/19 20:57 Seg Neutrophils % 78.6 % (40.0-70.0) H 10/18/19 05:21 Seg Neuts % (Manual) 77.0 % (40.0-70.0) H 10/17/19 20:57 Band Neutrophils % 0 % 10/17/19 20:57 Lymphocytes % (Manual) 14.0 % (13.4-35.0) 10/17/19 20:57 Reactive Lymphs % (Man) 0 % 10/17/19 20:57 Monocytes % (Manual) 9.0 % (0.0-7.3) H 10/17/19 20:57 Eosinophils % (Manual) 0 % (0.0-4.3) 10/17/19 20:57 Basophils % (Manual) 0 % (0.0-1.8) 10/17/19 20:57 Metamyelocytes % 0 % 10/17/19 20:57 Myelocytes % 0 % 10/17/19 20:57 Promyelocytes % 0 % 10/17/19 20:57 Blast Cells % 0 % 10/17/19 20:57 Nucleated RBC % Not Reportable 10/17/19 20:57 Seg Neutrophils # 2.6 K/mm3 (1.8-7.7) 10/18/19 05:21 Seg Neutrophils # Man 3.1 K/mm3 (1.8-7.7) 10/17/19 20:57 Band Neutrophils # 0.0 K/mm3 10/17/19 20:57 Lymphocytes # (Manual) 0.6 K/mm3 (1.2-5.4) L 10/17/19 20:57 Abs React Lymphs (Man) 0.0 K/mm3 10/17/19 20:57 Monocytes # (Manual) 0.4 K/mm3 (0.0-0.8) 10/17/19 20:57 Eosinophils # (Manual) 0.0 K/mm3 (0.0-0.4) 10/17/19 20:57 Basophils # (Manual) 0.0 K/mm3 (0.0-0.1) 10/17/19 20:57 Metamyelocytes # 0.0 K/mm3 10/17/19 20:57 Myelocytes # 0.0 K/mm3 10/17/19 20:57 Promyelocytes # 0.0 K/mm3 10/17/19 20:57 Blast Cells # 0.0 K/mm3 10/17/19 20:57 WBC Morphology Not Reportable 10/17/19 20:57 Hypersegmented Neuts Not Reportable 10/17/19 20:57 Hyposegmented Neuts Not Reportable 10/17/19 20:57 Hypogranular Neuts Not Reportable 10/17/19 20:57 Smudge Cells Not Reportable 10/17/19 20:57 Toxic Granulation Not Reportable 10/17/19 20:57 Toxic Vacuolation Not Reportable 10/17/19 20:57 Dohle Bodies Not Reportable 10/17/19 20:57 Pelger-Huet Anomaly Not Reportable 10/17/19 20:57 Krista Rods Not Reportable 10/17/19 20:57 Platelet Estimate Not Reportable 10/17/19 20:57 Clumped Platelets Not Reportable 10/17/19 20:57 Plt Clumps, EDTA Not Reportable 10/17/19 20:57 Large Platelets Not Reportable 10/17/19 20:57 Giant Platelets Not Reportable 10/17/19 20:57 Platelet Satelliting Not Reportable 10/17/19 20:57 Plt Morphology Comment Not Reportable 10/17/19 20:57 RBC Morphology Not Reportable 10/17/19 20:57 Dimorphic RBCs Not Reportable 10/17/19 20:57 Polychromasia Not Reportable 10/17/19 20:57 Hypochromasia 1+ 10/17/19 20:57 Poikilocytosis Not Reportable 10/17/19 20:57 Anisocytosis 2+ 10/17/19 20:57 Microcytosis Not Reportable 10/17/19 20:57 Macrocytosis Not Reportable 10/17/19 20:57 Spherocytes Not Reportable 10/17/19 20:57 Pappenheimer Bodies Not Reportable 10/17/19 20:57 Sickle Cells Not Reportable 10/17/19 20:57 Target Cells Not Reportable 10/17/19 20:57 Tear Drop Cells Not Reportable 10/17/19 20:57 Ovalocytes Not Reportable 10/17/19 20:57 Helmet Cells Not Reportable 10/17/19 20:57 [place] Bodies Not Reportable 10/17/19 20:57 [place] Rings Not Reportable 10/17/19 20:57 James Cells Not Reportable 10/17/19 20:57 Bite Cells Not Reportable 10/17/19 20:57 Crenated Cell Not Reportable 10/17/19 20:57 Elliptocytes Not Reportable 10/17/19 20:57 Acanthocytes (Spur) Not Reportable 10/17/19 20:57 Rouleaux Not Reportable 10/17/19 20:57 Hemoglobin C Crystals Not Reportable 10/17/19 20:57 Schistocytes Not Reportable 10/17/19 20:57 Malaria parasites Not Reportable 10/17/19 20:57 Alejandro Bodies Not Reportable 10/17/19 20:57 Hem Pathologist Commnt No 10/17/19 20:57 POC ABG pH 7.455 (7.35-7.45) H 10/30/19 21:08 ABG pH 7.472 pH Units (7.350-7.450) H 10/27/19 03:30 POC ABG pCO2 58.6 (35-45) H 10/30/19 21:08 ABG pCO2 53.6 mm Hg 10/27/19 03:30 POC ABG pO2 74 (80-105) L 10/30/19 21:08 ABG pO2 88.6 mm Hg (80.0-90.0) 10/27/19 03:30 POC ABG HCO3 41.2 (22-26 mml/L) 10/30/19 21:08 ABG HCO3 38.2 mmol/L (20.0-26.0) H 10/27/19 03:30 POC ABG Total CO2 43 (23-27mmol/L) 10/30/19 21:08 POC ABG O2 Sat 95 10/30/19 21:08 ABG O2 Saturation 97.2 % (95.0-99.0) 10/27/19 03:30 ABG O2 Content 8.9 (0.0-44) 10/27/19 03:30 POC ABG Base Excess 17 ((-2) - (+3)mmol/L) 10/30/19 21:08 ABG Base Excess 13.3 mmol/L (-2.0-3.0) H 10/27/19 03:30 ABG Hemoglobin 6.5 gm/dl (12.0-16.0) L 10/27/19 03:30 ABG Carboxyhemoglobin 1.6 % (0.0-5.0) 10/27/19 03:30 ABG Methemoglobin 0.4 % (0.0-1.5) 10/27/19 03:30 Oxyhemoglobin 95.3 % (95.0-99.0) 10/27/19 03:30 FiO2 40 % 10/30/19 21:08 Sodium 148 mmol/L (137-145) H 10/30/19 09:54 Potassium 3.8 mmol/L (3.6-5.0) 10/30/19 09:54 Chloride 103.1 mmol/L (98-107) 10/30/19 09:54 Carbon Dioxide 30 mmol/L (22-30) 10/30/19 09:54 Anion Gap 19 mmol/L 10/30/19 09:54 BUN 15 mg/dL (7-17) 10/30/19 09:54 Creatinine 0.4 mg/dL (0.7-1.2) L 10/30/19 09:54 Estimated GFR > 60 ml/min 10/30/19 09:54 BUN/Creatinine Ratio 38 % 10/30/19 09:54 Glucose 156 mg/dL (65-100) H 10/30/19 09:54 POC Glucose 108 (70-105) H 10/22/19 05:19 Calcium 8.4 mg/dL (8.4-10.2) 10/30/19 09:54 Total Bilirubin 0.20 mg/dL (0.1-1.2) 10/17/19 20:57 AST 57 units/L (5-40) H 10/17/19 20:57 ALT 22 units/L (7-56) 10/17/19 20:57 Alkaline Phosphatase 67 units/L (35-129) 10/17/19 20:57 Total Creatine Kinase 72 units/L (30-135) 10/30/19 09:54 CK-MB (CK-2) < 1.0 ng/mL (0.0-4.0) 10/30/19 09:54 CK-MB (CK-2) Rel Index 1.3 (0-4) 10/30/19 09:54 Troponin T < 0.010 ng/mL (0.00-0.029) 10/30/19 09:54 NT-Pro-B Natriuret Pep 317.6 pg/mL (0-450) 10/17/19 20:57 Total Protein 7.1 g/dL (6.3-8.2) 10/17/19 20:57 Albumin 3.0 g/dL (3.9-5) L 10/17/19 20:57 Albumin/Globulin Ratio 0.7 % 10/17/19 20:57 Triglycerides 279 mg/dL (2-149) H 10/27/19 05:40 Procalcitonin 0.06 ng/mL (<0.15) 10/20/19 14:51 Influenza A (Rapid) Positive (Negative) A 10/17/19 Unknown Influenza B (Rapid) Negative (Negative) 10/17/19 Unknown - Imaging and Cardiology Chest x-ray: image reviewed Active Medications - Current Medications Current Medications: Generic Name Dose Route Start Last Admin Trade Name Freq PRN Reason Stop Dose Admin Acetaminophen 650 mg 10/27/19 08:38 10/29/19 21:29 Tylenol PO 650 mg Q4H PRN Administration Non Cardiac Pain or Temp>100.5 Albuterol 2.5 mg 10/17/19 22:47 10/19/19 14:34 Proventil IH 2.5 mg Q3HRT PRN Administration Shortness Of Breath Albuterol/Ipratropium 1 ampul 10/19/19 20:00 10/30/19 21:14 Duoneb *Not For Prn Use* IH 1 ampul TIDRT EDI Administration Lipase/Protease/Amylase 1 each 10/24/19 11:54 10/30/19 14:59 Pancreaze 10,500 Unit FEEDTUBE 1 each PRN PRN Administration For Clogged Feeding Tube Fentanyl 50 mcg 10/23/19 17:29 Sublimaze IV Q10MIN PRN ANALGESIA Heparin Sodium (Porcine) 5,000 unit 10/18/19 06:00 10/30/19 14:16 Heparin SUB-Q 5,000 unit Q8HR EDI Administration Hydrophilic Ointment 1 applic 10/23/19 17:29 10/27/19 00:29 Vaseline Lip Therapy TP 1 applic Q2HR PRN Administration Dry Lips Fentanyl Citrate 2,000 mcg in 100 mls @ 13.25 mls/hr 10/23/19 18:00 10/30/19 11:00 Fentanyl Drip Premix IV Infused TITR EDI Titration Protocol 1 MCG/KG/HR Propofol 1,000 mg in 100 mls @ 7.95 mls/hr 10/23/19 18:00 10/28/19 18:39 Diprivan 10 Mg/Ml IV Infused TITR EDI Titration Protocol 5 MCG/KG/MIN Cefepime HCl 6 gm/ Sodium 250 mls @ 10.417 mls/hr 10/30/19 12:00 10/30/19 14:17 Chloride IV 10.417 mls/hr Q24HR EDI Administration Labetalol HCl 10 mg 10/24/19 14:32 Labetalol IV Q4H PRN Blood Pressure Lansoprazole 30 mg 10/30/19 11:00 10/30/19 10:49 Prevacid Solutab FEEDTUBE 30 mg BID EDI Administration Magnesium Hydroxide 30 ml 10/30/19 10:04 10/30/19 10:48 Milk Of Magnesia PO 30 ml Q4H PRN Administration INDIGESTION Morphine Sulfate 2 mg 10/17/19 22:47 10/30/19 14:18 Morphine IV 2 mg Q4H PRN Administration Pain, Moderate (4-6) Multi-Ingred Cream/Lotion/Oil/Oint 1 applic 10/23/19 17:29 Artificial Tears Ophth Oint OU Q4HR PRN Dry Eye(s) Ondansetron HCl 4 mg 10/17/19 22:47 10/29/19 02:45 Zofran IV 4 mg Q8H PRN Administration Nausea And Vomiting Simple Syrup 15 ml 10/24/19 11:54 Simple Syrup FEEDTUBE PRN PRN Hypoglycemia Simple Syrup 30 ml 10/24/19 11:54 Simple Syrup FEEDTUBE PRN PRN Hypoglycemia Sodium Bicarbonate 325 mg 10/24/19 11:54 10/30/19 14:59 Sodium Bicarbonate FEEDTUBE 325 mg PRN PRN Administration For Clogged Feeding Tube Sodium Chloride 10 ml 10/18/19 10:00 10/30/19 10:49 Sodium Chloride Flush Syringe 10 Ml IV 10 ml BID EDI Administration Sodium Chloride 10 ml 10/17/19 22:47 Sodium Chloride Flush Syringe 10 Ml IV PRN PRN LINE FLUSH Tamsulosin HCl 0.4 mg 10/30/19 11:00 10/30/19 11:01 Flomax PO 0.4 mg QDAY EDI Administration Nutrition/Malnutrition Assess - Dietary Evaluation Nutrition/Malnutrition Findings: Nutrition Notes Start: 10/19/19 13:2 0 Freq: Status: Active Protocol: Document 10/30/19 10:32 KS (Rec: 10/30/19 10:45 KS [id number]) Co-Sign 10/30/19 10:32 LP Nutrition Notes Initial or Follow up Reassessment Current Diagnosis Hypertension,Respiratory Failure Other Pertinent Diagnosis Influlenza A pneumonia, lymphedema, pulmonary edema, SOB, DVT Current Diet Vital AF 1.2 at 65 ml/hr Labs/Tests Na 148 Cr 0.4 BG 156 Pertinent Medications Reviewed Height 5 ft 6 in Weight 236.8 kg [place] Body Weight (kg) 59.09 BMI 84.2 Subjective/Other Information Vital AF 1.2 observed running at 65mL/hr (goal rate) at time of visit. Per RN, pt is tolerating TF. Pt is receiving free water flush of 250mL q4h for hypernatremia. Percent of energy/protein needs met: 99%/79% Burn Absent Trauma Absent Current % PO Negligible Minimum of two criteria No #2 Nutrition Diagnosis Inadequate oral intake Diagnosis Progress(for reassessment Continues documentation) Is patient on ventilator? Yes Is Patient Ambulatory and/or Out of Bed No REE-([place]-confined to bed) 3619.464 Kcal/Kg value to use for calculation 8 Approximate Energy Requirements Using 1894 kcal/Kg Calculation Used for Recommendations Kcal/kg Additional Notes Protein needs: 148g (up to 2. 5g/kg IBW 59 kg) Fluid: 1 ml/kcal Nutrition Intervention Change Diet Order: TF Nutrition Support: Vital AF 1.2 at 65 ml/hr Flush 250 ml q4h for hypernatremia Flush 100 ml q4h once hypernatremia resolves Kcal 1,872 Protein (gm) 117 Fluid (mL) 1,265 Goal #1 Meet at least 75% of energy and protein needs Anticipated Discharge Needs: unable to determine at this time Follow-Up By: 11/03/19 Additional Comments F/U for TF tolerance, Na lab
--- NOTE | 2019-10-30 21:52 | XRay Report ---
ABDOMEN, SINGLE VIEW INDICATION / CLINICAL INFORMATION: NG tube placement. COMPARISON: None available. FINDINGS: Tip of the NG tube is in the proximal stomach and appears to be in satisfactory position. Signer Name: Angélica Salter MD Signed: 10/30/2019 9:48 PM Workstation Name: [id number]
[2019-10-30] MEDS ORDERED: FUROSEMIDE 20 MG/2 ML INJ IV ONE (22:05)
[2019-10-31] MEDS: ACETAMINOPHEN 325 MG/10.15 ML ORAL LIQD UNIT DOSE PO PRN ×2 (00:20→13:31)
[2019-10-31] MEDS: fentaNYL DRIP Premix 2,000 MCG/100 ML BAG IV SCH ×4 (03:11→20:45)
[2019-10-31] MEDS: HEPARIN 5,000 UNIT/1 ML VIAL SUB-Q SCH ×3 (06:26→21:31)
[2019-10-31] MEDS: IPRATROPIUM/ALBUTEROL SULFATE 3 ML AMPUL.NEB IH SCH ×3 (07:39→20:08)
[2019-10-31 08:50] LABS: BUN/Creatinine Ratio 38; Blood Urea Nitrogen 15 mg/dL (7-17); Calcium 8.6 mg/dL (8.4-10.2); Hemolysis Index 3
[2019-10-31] MEDS: LANSOPRAZOLE 30 MG SOLUTAB FEEDTUBE SCH ×2 (10:27→21:31)
[2019-10-31] MEDS: TAMSULOSIN 0.4 MG CAP PO SCH (10:28)
--- NOTE | 2019-10-31 11:03 | Progress Note ---
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 Functional quadriplegia h/o HTN -Decrease PEEP to 6, ABG in the morning -Has completed anti-viral therapy, on antibiotics per ID service -Continue with diuresis while monitoring renal function, electrolytes -give a dose today -Free water flushes and hypotonic solution for hypernatremia -Continue with daily SAT -Continue mobility protocol, off loading for pressure ulcer prevention- high risk patient -VAP bundle addresed -Aspiration precautions, HOB>40 degrees -Wean FIO2 for O2 sats 88-90%. Once FIO2 to down to 50% with adequate oxygenation, will start weaning PEEP -Daily assessment for readiness to wean -Oxygen restrictive strategies -Titrate sedation to RASS -1 -Bronchodilators per protocol -Start tube feedings via the small bowel feeding tube -Continue airborne isolation -Continue with VTE prophylaxis -Continue stress ulcer prophylaxis - Continue with Accuchecks with glycemic control for SSI (While critically ill target blood glucose of 140-180 mg/dL; avoid hypoglycemia) - Continue to monitor hemodynamics closely - Continue to monitor electrolyte profile closely and replete as indicated -Chronic home medications, resume as clinically indicated -Blanchard catheter in this critically ill patient, with poor urine output, requiring accurate intake and output monitoring. She acutely de-saturates with minimal movement -PT/OT -Weight loss and life style modifications on discharge. May need surgical bariatric intervention( discussed this with her and her sister- patient currently does not have health insurance but has applied) -Out patient evaluation for sleep apnea Discussed with RT and RN Updated her sister who was at the bedside CONDITION: CRITICAL PROGNOSIS: GUARDED CODE STATUS: FULL CODE The high probability of a clinically significant, sudden or life-threatening deterioration of the [respiratory, cardiovascular,] system(s) required my full and direct attention, intervention and personal management. The aggregate critical care time was [35] minutes without overlap. Time includes spent on; [x] Data Review and interpretation [x] Patient assessment and monitoring of vital signs [x] Documentation [x] Medication orders and management Subjective Date of service: 10/31/19 Principal diagnosis: acute respiratory distress Interval history: Patient is seen today for: acute hypoxic-hypercapnic respiratory failure on MVS; influenza infection; extreme obesity with probable DEAN Seen and examined at bedside; 24hour events reviewed; nursing and respiratory care staff consulted; no adverse overnight events reported to me; Patient is on MVS, ETT in place to MVS FIO2 40%, PEEP 8 airway pressures are within normal- on PSV 14/8, with adequate volumes. Off fentanyl and is comfortable. Mother is at the bedside RUExt midline, Blanchard catheter Vitals, labs, medications, chart and imaging reviewed. Discussed with RT and RN Fevers Objective Vital Signs - 12hr 10/30/19 10/31/19 10/31/19 23:19 00:00 01:00 Temperature 100.4 F H Pulse Rate 115 H 117 H 115 H Pulse Rate [ Anterior Bilateral Throughout] Respiratory 23 25 H Rate Respiratory Rate [Anterior Bilateral Throughout] Blood Pressure 150/81 156/80 148/75 O2 Sat by Pulse 96 92 86 Oximetry 10/31/19 10/31/19 10/31/19 01:31 02:00 02:30 Temperature Pulse Rate 111 H 107 H 100 H Pulse Rate [ Anterior Bilateral Throughout] Respiratory 22 21 18 Rate Respiratory Rate [Anterior Bilateral Throughout] Blood Pressure 148/75 139/82 137/75 O2 Sat by Pulse 95 86 88 Oximetry 10/31/19 10/31/19 10/31/19 03:00 03:30 04:00 Temperature 98.9 F Pulse Rate 101 H 100 H 101 H Pulse Rate [ Anterior Bilateral Throughout] Respiratory 21 19 20 Rate Respiratory Rate [Anterior Bilateral Throughout] Blood Pressure 144/72 136/77 132/71 O2 Sat by Pulse 88 91 89 Oximetry 10/31/19 10/31/19 10/31/19 04:21 04:30 05:00 Temperature Pulse Rate 105 H 113 H 97 H Pulse Rate [ Anterior Bilateral Throughout] Respiratory 24 24 Rate Respiratory Rate [Anterior Bilateral Throughout] Blood Pressure 132/71 138/91 142/82 O2 Sat by Pulse 95 88 86 Oximetry 10/31/19 10/31/19 10/31/19 05:30 06:00 06:30 Temperature Pulse Rate 96 H 98 H 103 H Pulse Rate [ Anterior Bilateral Throughout] Respiratory 24 24 24 Rate Respiratory Rate [Anterior Bilateral Throughout] Blood Pressure 139/77 148/79 143/73 O2 Sat by Pulse 88 89 90 Oximetry 10/31/19 10/31/19 10/31/19 07:00 07:30 07:39 Temperature Pulse Rate 100 H 112 H 102 H Pulse Rate [ 103 H Anterior Bilateral Throughout] Respiratory 24 22 Rate Respiratory 24 Rate [Anterior Bilateral Throughout] Blood Pressure 132/72 150/75 150/75 O2 Sat by Pulse 87 90 96 Oximetry 10/31/19 10/31/19 10/31/19 08:00 08:31 09:00 Temperature 99.8 F H Pulse Rate 109 H 103 H 107 H Pulse Rate [ Anterior Bilateral Throughout] Respiratory 24 24 24 Rate Respiratory Rate [Anterior Bilateral Throughout] Blood Pressure 131/67 180/88 126/71 O2 Sat by Pulse 86 90 90 Oximetry 10/31/19 10/31/19 09:30 10:07 Temperature Pulse Rate 122 H 117 H Pulse Rate [ Anterior Bilateral Throughout] Respiratory 24 21 Rate Respiratory Rate [Anterior Bilateral Throughout] Blood Pressure 136/73 109/55 O2 Sat by Pulse 88 94 Oximetry Constitutional: asleep (but rousable, opens eyes to verbal stimuli), other (nods appropriately to questions, ETT at 24cm, no leak) Eyes: non-icteric ENT: oropharynx moist, other (small bowel feeding tube in nares) Neck: supple, no lymphadenopathy, no JVD, other (short neck, large circunfer ence) Effort: normal Ascultation: Bilateral: diminished breath sounds Cardiovascular: regular rate and rhythm, other (S1,S2) Gastrointestinal: normoactive bowel sounds, soft, non-tender, non-distended Integumentary: normal Extremities: no cyanosis, no edema, pink and warm, pulses normal Neurologic: non-focal exam, pupils equal and round Psychiatric: mood appropriate, affect normal CBC and BMP: 10/27/19 05:40 10/31/19 08:02 ABG, PT/INR, D-dimer: ABG POC ABG pH 7.428 (7.35-7.45) 10/31/19 04:42 ABG pH 7.472 pH Units (7.350-7.450) H 10/27/19 03:30 POC ABG pCO2 62.2 (35-45) H 10/31/19 04:42 ABG pCO2 53.6 mm Hg 10/27/19 03:30 POC ABG pO2 76 (80-105) L 10/31/19 04:42 ABG pO2 88.6 mm Hg (80.0-90.0) 10/27/19 03:30 POC ABG HCO3 41.1 (22-26 mml/L) 10/31/19 04:42 POC ABG Total CO2 43 (23-27mmol/L) 10/31/19 04:42 POC ABG O2 Sat 95 10/31/19 04:42 ABG O2 Saturation 97.2 % (95.0-99.0) 10/27/19 03:30 Abnormal lab findings: Abnormal Labs 10/17/19 10/17/19 10/17/19 20:57 20:57 Unknown WBC 4.0 L RBC Hgb Hct MCV 78 L MCH 25 L RDW 24.7 H Lymph % (Auto) Andrews % (Auto) Lymph # Seg Neutrophils % Seg Neuts % (Manual) 77.0 H Monocytes % (Manual) 9.0 H Lymphocytes # (Manual) 0.6 L POC ABG pH ABG pH POC ABG pCO2 POC ABG pO2 ABG pO2 ABG HCO3 ABG Base Excess ABG Hemoglobin Sodium Potassium 3.5 L Chloride Carbon Dioxide BUN Creatinine 0.6 L Glucose 147 H POC Glucose Calcium 7.9 L AST 57 H Total Creatine Kinase 857 H Albumin 3.0 L Triglycerides Influenza A (Rapid) Positive A 10/18/19 10/18/19 10/18/19 05:21 05:21 09:19 WBC 3.3 L RBC Hgb Hct MCV MCH 25 L RDW 24.3 H Lymph % (Auto) 12.5 L Andrews % (Auto) 7.9 H Lymph # 0.4 L Seg Neutrophils % 78.6 H Seg Neuts % (Manual) Monocytes % (Manual) Lymphocytes # (Manual) POC ABG pH ABG pH POC ABG pCO2 POC ABG pO2 ABG pO2 131.3 H ABG HCO3 30.2 H ABG Base Excess 4.5 H ABG Hemoglobin 10.7 L Sodium Potassium Chloride Carbon Dioxide BUN Creatinine Glucose 167 H POC Glucose Calcium 8.3 L AST Total Creatine Kinase Albumin Triglycerides Influenza A (Rapid) 10/18/19 10/18/19 10/19/19 11:28 18:27 06:39 WBC RBC Hgb Hct MCV MCH RDW Lymph % (Auto) Andrews % (Auto) Lymph # Seg Neutrophils % Seg Neuts % (Manual) Monocytes % (Manual) Lymphocytes # (Manual) POC ABG pH 7.461 H 7.487 H ABG pH POC ABG pCO2 53.4 H 52.8 H 51.7 H POC ABG pO2 70 L 71 L ABG pO2 ABG HCO3 ABG Base Excess ABG Hemoglobin Sodium Potassium Chloride Carbon Dioxide BUN Creatinine Glucose POC Glucose Calcium AST Total Creatine Kinase Albumin Triglycerides Influenza A (Rapid) 10/19/19 10/20/19 10/20/19 23:25 05:31 09:08 WBC RBC Hgb Hct MCV MCH RDW Lymph % (Auto) Andrews % (Auto) Lymph # Seg Neutrophils % Seg Neuts % (Manual) Monocytes % (Manual) Lymphocytes # (Manual) POC ABG pH ABG pH POC ABG pCO2 POC ABG pO2 ABG pO2 ABG HCO3 ABG Base Excess ABG Hemoglobin Sodium Potassium Chloride Carbon Dioxide BUN Creatinine Glucose POC Glucose 203 H 144 H 163 H Calcium AST Total Creatine Kinase Albumin Triglycerides Influenza A (Rapid) 10/20/19 10/20/19 10/20/19 10:25 13:22 14:51 WBC RBC Hgb Hct MCV MCH RDW Lymph % (Auto) Andrews % (Auto) Lymph # Seg Neutrophils % Seg Neuts % (Manual) Monocytes % (Manual) Lymphocytes # (Manual) POC ABG pH 7.632 H ABG pH POC ABG pCO2 POC ABG pO2 74 L ABG pO2 ABG HCO3 ABG Base Excess ABG Hemoglobin Sodium 147 H Potassium Chloride Carbon Dioxide 31 H BUN Creatinine 0.5 L Glucose 154 H POC Glucose 178 H Calcium 8.2 L AST Total Creatine Kinase Albumin Triglycerides Influenza A (Rapid) 10/20/19 10/20/19 10/20/19 14:51 17:16 21:30 WBC 11.2 H RBC Hgb Hct MCV 78 L MCH 25 L RDW 23.9 H Lymph % (Auto) Andrews % (Auto) Lymph # Seg Neutrophils % Seg Neuts % (Manual) Monocytes % (Manual) Lymphocytes # (Manual) POC ABG pH ABG pH POC ABG pCO2 POC ABG pO2 ABG pO2 ABG HCO3 ABG Base Excess ABG Hemoglobin Sodium Potassium Chloride Carbon Dioxide BUN Creatinine Glucose POC Glucose 143 H 152 H Calcium AST Total Creatine Kinase Albumin Triglycerides Influenza A (Rapid) 10/20/19 10/21/19 10/21/19 22:52 05:55 08:27 WBC RBC Hgb Hct MCV MCH RDW Lymph % (Auto) Andrews % (Auto) Lymph # Seg Neutrophils % Seg Neuts % (Manual) Monocytes % (Manual) Lymphocytes # (Manual) POC ABG pH ABG pH POC ABG pCO2 POC ABG pO2 ABG pO2 ABG HCO3 ABG Base Excess ABG Hemoglobin Sodium Potassium Chloride Carbon Dioxide BUN Creatinine Glucose POC Glucose 179 H 115 H 131 H Calcium AST Total Creatine Kinase Albumin Triglycerides Influenza A (Rapid) 10/21/19 10/21/19 10/21/19 11:52 16:23 23:38 WBC RBC Hgb Hct MCV MCH RDW Lymph % (Auto) Andrews % (Auto) Lymph # Seg Neutrophils % Seg Neuts % (Manual) Monocytes % (Manual) Lymphocytes # (Manual) POC ABG pH ABG pH POC ABG pCO2 POC ABG pO2 ABG pO2 ABG HCO3 ABG Base Excess ABG Hemoglobin Sodium Potassium Chloride Carbon Dioxide BUN Creatinine Glucose POC Glucose 122 H 120 H 115 H Calcium AST Total Creatine Kinase Albumin Triglycerides Influenza A (Rapid) 10/22/19 10/22/19 10/22/19 00:35 05:19 06:10 WBC RBC Hgb Hct MCV MCH 25 L RDW 22.8 H Lymph % (Auto) Andrews % (Auto) Lymph # Seg Neutrophils % Seg Neuts % (Manual) Monocytes % (Manual) Lymphocytes # (Manual) POC ABG pH ABG pH 7.520 H POC ABG pCO2 POC ABG pO2 ABG pO2 64.4 L ABG HCO3 36.8 H ABG Base Excess 12.6 H ABG Hemoglobin 10.4 L Sodium Potassium Chloride Carbon Dioxide BUN Creatinine Glucose POC Glucose 108 H Calcium AST Total Creatine Kinase Albumin Triglycerides Influenza A (Rapid) 10/22/19 10/24/19 10/25/19 15:40 05:49 04:20 WBC RBC Hgb Hct MCV MCH RDW Lymph % (Auto) Andrews % (Auto) Lymph # Seg Neutrophils % Seg Neuts % (Manual) Monocytes % (Manual) Lymphocytes # (Manual) POC ABG pH 7.454 H ABG pH POC ABG pCO2 64.1 H 63.5 H POC ABG pO2 73 L ABG pO2 ABG HCO3 ABG Base Excess ABG Hemoglobin Sodium 136 L D Potassium Chloride 97.6 L Carbon Dioxide BUN 19 H Creatinine Glucose 125 H POC Glucose Calcium AST Total Creatine Kinase Albumin Triglycerides Influenza A (Rapid) 10/25/19 10/25/19 10/26/19 05:35 05:35 04:19 WBC RBC Hgb 10.0 L Hct MCV MCH 25 L RDW 22.0 H Lymph % (Auto) Andrews % (Auto) Lymph # Seg Neutrophils % Seg Neuts % (Manual) Monocytes % (Manual) Lymphocytes # (Manual) POC ABG pH ABG pH POC ABG pCO2 66.1 H POC ABG pO2 75 L ABG pO2 ABG HCO3 ABG Base Excess ABG Hemoglobin Sodium 147 H D Potassium Chloride Carbon Dioxide 34 H D BUN 23 H Creatinine 0.5 L Glucose 184 H POC Glucose Calcium AST Total Creatine Kinase Albumin Triglycerides Influenza A (Rapid) 10/26/19 10/26/19 10/26/19 05:20 05:20 12:44 WBC RBC Hgb 9.5 L Hct MCV MCH 25 L RDW 22.3 H Lymph % (Auto) Andrews % (Auto) Lymph # Seg Neutrophils % Seg Neuts % (Manual) Monocytes % (Manual) Lymphocytes # (Manual) POC ABG pH 7.501 H ABG pH POC ABG pCO2 54.7 H POC ABG pO2 69 L ABG pO2 ABG HCO3 ABG Base Excess ABG Hemoglobin Sodium 152 H Potassium Chloride Carbon Dioxide 33 H BUN 27 H Creatinine 0.6 L Glucose 135 H POC Glucose Calcium AST Total Creatine Kinase Albumin Triglycerides Influenza A (Rapid) 10/27/19 10/27/19 10/27/19 03:30 05:40 05:40 WBC RBC 3.62 L Hgb 9.4 L Hct 29.1 L MCV MCH 26 L RDW 21.7 H Lymph % (Auto) Andrews % (Auto) Lymph # Seg Neutrophils % Seg Neuts % (Manual) Monocytes % (Manual) Lymphocytes # (Manual) POC ABG pH ABG pH 7.472 H POC ABG pCO2 POC ABG pO2 ABG pO2 ABG HCO3 38.2 H ABG Base Excess 13.3 H ABG Hemoglobin 6.5 L Sodium 149 H Potassium 3.3 L Chloride Carbon Dioxide 31 H BUN 25 H Creatinine 0.5 L Glucose 142 H POC Glucose Calcium 8.2 L AST Total Creatine Kinase Albumin Triglycerides Influenza A (Rapid) 10/27/19 10/28/19 10/28/19 05:40 05:19 05:56 WBC RBC Hgb Hct MCV MCH RDW Lymph % (Auto) Andrews % (Auto) Lymph # Seg Neutrophils % Seg Neuts % (Manual) Monocytes % (Manual) Lymphocytes # (Manual) POC ABG pH 7.489 H ABG pH POC ABG pCO2 51.0 H POC ABG pO2 71 L ABG pO2 ABG HCO3 ABG Base Excess ABG Hemoglobin Sodium 153 H Potassium Chloride Carbon Dioxide 31 H BUN Creatinine 0.4 L Glucose 111 H POC Glucose Calcium 8.1 L AST Total Creatine Kinase Albumin Triglycerides 279 H Influenza A (Rapid) 10/29/19 10/29/19 10/30/19 03:54 04:21 04:48 WBC RBC Hgb Hct MCV MCH RDW Lymph % (Auto) Andrews % (Auto) Lymph # Seg Neutrophils % Seg Neuts % (Manual) Monocytes % (Manual) Lymphocytes # (Manual) POC ABG pH 7.506 H 7.508 H ABG pH POC ABG pCO2 53.6 H 49.6 H POC ABG pO2 ABG pO2 ABG HCO3 ABG Base Excess ABG Hemoglobin Sodium 150 H Potassium Chloride Carbon Dioxide BUN Creatinine 0.4 L Glucose 137 H POC Glucose Calcium AST Total Creatine Kinase Albumin Triglycerides Influenza A (Rapid) 10/30/19 10/30/19 10/31/19 09:54 21:08 00:17 WBC RBC Hgb Hct MCV MCH RDW Lymph % (Auto) Andrews % (Auto) Lymph # Seg Neutrophils % Seg Neuts % (Manual) Monocytes % (Manual) Lymphocytes # (Manual) POC ABG pH 7.455 H ABG pH POC ABG pCO2 58.6 H POC ABG pO2 74 L ABG pO2 ABG HCO3 ABG Base Excess ABG Hemoglobin Sodium 148 H Potassium Chloride Carbon Dioxide BUN Creatinine 0.4 L Glucose 156 H POC Glucose 160 H Calcium AST Total Creatine Kinase Albumin Triglycerides Influenza A (Rapid) 10/31/19 10/31/19 04:42 08:02 WBC RBC Hgb Hct MCV MCH RDW Lymph % (Auto) Andrews % (Auto) Lymph # Seg Neutrophils % Seg Neuts % (Manual) Monocytes % (Manual) Lymphocytes # (Manual) POC ABG pH ABG pH POC ABG pCO2 62.2 H POC ABG pO2 76 L ABG pO2 ABG HCO3 ABG Base Excess ABG Hemoglobin Sodium 149 H Potassium Chloride Carbon Dioxide BUN Creatinine 0.4 L Glucose 146 H POC Glucose Calcium AST Total Creatine Kinase Albumin Triglycerides Influenza A (Rapid) Allied health notes reviewed: RT
[2019-10-31] MEDS: SODIUM CHLORIDE 0.9% IV SCH ×2 (13:30→14:00)
[2019-10-31] MEDS: CEFEPIME IV SCH ×2 (13:30→14:00)
--- NOTE | 2019-10-31 13:51 | Progress Note ---
Assessment and Plan Assessment and plan: Acute hypoxemic respiratory failure. Respiratory/tracheal aspirate reveals Enterobacter. The patient failed BiPAP and required intubation on 10/23/2019. Patient currently on AC mode ventilation. Pulmonary following. Sepsis. Etiology secondary to pneumonia/influenza A. Continue antibiotics per ID. Follow-up cultures. Influenza A. Completed high dose prolonged Tamiflu course. Bilateral pneumonia. resp culture with GNR, patient on Cefepime. Acute on chronic diastolic heart failure. Echocardiogram revealed The left ventricular size is mildly dilated, mild to moderate concentric LVH, est EF 40- 45%, left atrium is mildly dilated, trace MR, mild TR, mild to moderate Pulmonary hypertension, RVSP is calculated at 42 mmHg. Obesity hypoventilation syndrome/DEAN. Outpatient evaluation for sleep apnea Morbid obesity. BMI is 94.3. Weight loss and life style modifications on discharge. May need surgical bariatric intervention The high probability of a clinically significant, sudden or life-threatening deterioration of the [respiratory, cardiovascular,] system(s) required my full and direct attention, intervention and personal management. The aggregate critical care time was [33] minutes without overlap. Time includes spent on; [x] Data Review and interpretation [x] Patient assessment and monitoring of vital signs [x] Documentation [x] Medication orders and management History Interval history: Patient is a 49 yo woman with a history of severe obesity BMI 93.6 (579 lbs), hypertension, lymphedema, functional quadriplegia and DEAN non compliant with CPAP who admitted to [facility] ED on 10/18/19 with Respiratory failure wtih pulse ox in the 50s. She was treated with BIPAP up until 10/23/2019 around 5pm when she was intubated by Anesthesia using guidescope. Trach aspirate growing GNR (still pending) and iv zosyn started then switched to Cefepime by ID. Hospitalist Physical - Constitutional Vitals: Temp Pulse Resp BP Pulse Ox 100.7 F H 112 H 19 130/72 95 10/31/19 12:00 10/31/19 13:36 10/31/19 13:36 10/31/19 13:36 10/31/19 13:36 General appearance: Present: obese, other (Intubated on mechanical ventilation). Absent: mild distress - EENT Eyes: Present: PERRL, EOM intact ENT: hearing intact, clear oral mucosa, dentition normal - Neck Neck: Present: supple, normal ROM - Respiratory Respiratory effort: normal Respiratory: bilateral: diminished, rhonchi - Cardiovascular Rhythm: regular Heart Sounds: Present: S1 & S2. Absent: gallop, rub - Extremities Extremities: no ischemia, No edema, Full ROM - Abdominal General gastrointestinal: soft, non-tender, non-distended, normal bowel sounds - Integumentary Integumentary: Present: clear, warm, dry - Neurologic Neurologic: CNII-XII intact, moves all extremities Results - Labs CBC & Chem 7: 10/27/19 05:40 10/31/19 08:02 Labs: Laboratory Last Values WBC 8.5 K/mm3 (4.5-11.0) 10/27/19 05:40 RBC 3.62 M/mm3 (3.65-5.03) L 10/27/19 05:40 Hgb 9.4 gm/dl (10.1-14.3) L 10/27/19 05:40 Hct 29.1 % (30.3-42.9) L 10/27/19 05:40 MCV 80 fl (79-97) 10/27/19 05:40 MCH 26 pg (28-32) L 10/27/19 05:40 MCHC 32 % (30-34) 10/27/19 05:40 RDW 21.7 % (13.2-15.2) H 10/27/19 05:40 Plt Count 288 K/mm3 (140-440) 10/27/19 05:40 Lymph % (Auto) 12.5 % (13.4-35.0) L 10/18/19 05:21 [place]son % (Auto) 7.9 % (0.0-7.3) H 10/18/19 05:21 Eos % (Auto) 0.0 % (0.0-4.3) 10/18/19 05:21 Baso % (Auto) 1.0 % (0.0-1.8) 10/18/19 05:21 Lymph # 0.4 K/mm3 (1.2-5.4) L 10/18/19 05:21 Woodson # 0.3 K/mm3 (0.0-0.8) 10/18/19 05:21 Eos # 0.0 K/mm3 (0.0-0.4) 10/18/19 05:21 Baso # 0.0 K/mm3 (0.0-0.1) 10/18/19 05:21 Add Manual Diff Complete 10/17/19 20:57 Total Counted 100 10/17/19 20:57 Seg Neutrophils % 78.6 % (40.0-70.0) H 10/18/19 05:21 Seg Neuts % (Manual) 77.0 % (40.0-70.0) H 10/17/19 20:57 Band Neutrophils % 0 % 10/17/19 20:57 Lymphocytes % (Manual) 14.0 % (13.4-35.0) 10/17/19 20:57 Reactive Lymphs % (Man) 0 % 10/17/19 20:57 Monocytes % (Manual) 9.0 % (0.0-7.3) H 10/17/19 20:57 Eosinophils % (Manual) 0 % (0.0-4.3) 10/17/19 20:57 Basophils % (Manual) 0 % (0.0-1.8) 10/17/19 20:57 Metamyelocytes % 0 % 10/17/19 20:57 Myelocytes % 0 % 10/17/19 20:57 Promyelocytes % 0 % 10/17/19 20:57 Blast Cells % 0 % 10/17/19 20:57 Nucleated RBC % Not Reportable 10/17/19 20:57 Seg Neutrophils # 2.6 K/mm3 (1.8-7.7) 10/18/19 05:21 Seg Neutrophils # Man 3.1 K/mm3 (1.8-7.7) 10/17/19 20:57 Band Neutrophils # 0.0 K/mm3 10/17/19 20:57 Lymphocytes # (Manual) 0.6 K/mm3 (1.2-5.4) L 10/17/19 20:57 Abs React Lymphs (Man) 0.0 K/mm3 10/17/19 20:57 Monocytes # (Manual) 0.4 K/mm3 (0.0-0.8) 10/17/19 20:57 Eosinophils # (Manual) 0.0 K/mm3 (0.0-0.4) 10/17/19 20:57 Basophils # (Manual) 0.0 K/mm3 (0.0-0.1) 10/17/19 20:57 Metamyelocytes # 0.0 K/mm3 10/17/19 20:57 Myelocytes # 0.0 K/mm3 10/17/19 20:57 Promyelocytes # 0.0 K/mm3 10/17/19 20:57 Blast Cells # 0.0 K/mm3 10/17/19 20:57 WBC Morphology Not Reportable 10/17/19 20:57 Hypersegmented Neuts Not Reportable 10/17/19 20:57 Hyposegmented Neuts Not Reportable 10/17/19 20:57 Hypogranular Neuts Not Reportable 10/17/19 20:57 Smudge Cells Not Reportable 10/17/19 20:57 Toxic Granulation Not Reportable 10/17/19 20:57 Toxic Vacuolation Not Reportable 10/17/19 20:57 Dohle Bodies Not Reportable 10/17/19 20:57 Pelger-Huet Anomaly Not Reportable 10/17/19 20:57 Krista Rods Not Reportable 10/17/19 20:57 Platelet Estimate Not Reportable 10/17/19 20:57 Clumped Platelets Not Reportable 10/17/19 20:57 Plt Clumps, EDTA Not Reportable 10/17/19 20:57 Large Platelets Not Reportable 10/17/19 20:57 Giant Platelets Not Reportable 10/17/19 20:57 Platelet Satelliting Not Reportable 10/17/19 20:57 Plt Morphology Comment Not Reportable 10/17/19 20:57 RBC Morphology Not Reportable 10/17/19 20:57 Dimorphic RBCs Not Reportable 10/17/19 20:57 Polychromasia Not Reportable 10/17/19 20:57 Hypochromasia 1+ 10/17/19 20:57 Poikilocytosis Not Reportable 10/17/19 20:57 Anisocytosis 2+ 10/17/19 20:57 Microcytosis Not Reportable 10/17/19 20:57 Macrocytosis Not Reportable 10/17/19 20:57 Spherocytes Not Reportable 10/17/19 20:57 Pappenheimer Bodies Not Reportable 10/17/19 20:57 Sickle Cells Not Reportable 10/17/19 20:57 Target Cells Not Reportable 10/17/19 20:57 Tear Drop Cells Not Reportable 10/17/19 20:57 Ovalocytes Not Reportable 10/17/19 20:57 Helmet Cells Not Reportable 10/17/19 20:57 Gallagher-Durbin Bodies Not Reportable 10/17/19 20:57 [place] Rings Not Reportable 10/17/19 20:57 [place] Cells Not Reportable 10/17/19 20:57 Bite Cells Not Reportable 10/17/19 20:57 Crenated Cell Not Reportable 10/17/19 20:57 Elliptocytes Not Reportable 10/17/19 20:57 Acanthocytes (Spur) Not Reportable 10/17/19 20:57 Rouleaux Not Reportable 10/17/19 20:57 Hemoglobin C Crystals Not Reportable 10/17/19 20:57 Schistocytes Not Reportable 10/17/19 20:57 Malaria parasites Not Reportable 10/17/19 20:57 Alejandro Bodies Not Reportable 10/17/19 20:57 Hem Pathologist Commnt No 10/17/19 20:57 POC ABG pH 7.428 (7.35-7.45) 10/31/19 04:42 ABG pH 7.472 pH Units (7.350-7.450) H 10/27/19 03:30 POC ABG pCO2 62.2 (35-45) H 10/31/19 04:42 ABG pCO2 53.6 mm Hg 10/27/19 03:30 POC ABG pO2 76 (80-105) L 10/31/19 04:42 ABG pO2 88.6 mm Hg (80.0-90.0) 10/27/19 03:30 POC ABG HCO3 41.1 (22-26 mml/L) 10/31/19 04:42 ABG HCO3 38.2 mmol/L (20.0-26.0) H 10/27/19 03:30 POC ABG Total CO2 43 (23-27mmol/L) 10/31/19 04:42 POC ABG O2 Sat 95 10/31/19 04:42 ABG O2 Saturation 97.2 % (95.0-99.0) 10/27/19 03:30 ABG O2 Content 8.9 (0.0-44) 10/27/19 03:30 POC ABG Base Excess 17 ((-2) - (+3)mmol/L) 10/31/19 04:42 ABG Base Excess 13.3 mmol/L (-2.0-3.0) H 10/27/19 03:30 ABG Hemoglobin 6.5 gm/dl (12.0-16.0) L 10/27/19 03:30 ABG Carboxyhemoglobin 1.6 % (0.0-5.0) 10/27/19 03:30 ABG Methemoglobin 0.4 % (0.0-1.5) 10/27/19 03:30 Oxyhemoglobin 95.3 % (95.0-99.0) 10/27/19 03:30 FiO2 40 % 10/31/19 04:42 Sodium 149 mmol/L (137-145) H 10/31/19 08:02 Potassium 3.6 mmol/L (3.6-5.0) 10/31/19 08:02 Chloride 104.2 mmol/L (98-107) 10/31/19 08:02 Carbon Dioxide 30 mmol/L (22-30) 10/31/19 08:02 Anion Gap 18 mmol/L 10/31/19 08:02 BUN 15 mg/dL (7-17) 10/31/19 08:02 Creatinine 0.4 mg/dL (0.7-1.2) L 10/31/19 08:02 Estimated GFR > 60 ml/min 10/31/19 08:02 BUN/Creatinine Ratio 38 % 10/31/19 08:02 Glucose 146 mg/dL (65-100) H 10/31/19 08:02 POC Glucose 160 (70-105) H 10/31/19 00:17 Calcium 8.6 mg/dL (8.4-10.2) 10/31/19 08:02 Total Bilirubin 0.20 mg/dL (0.1-1.2) 10/17/19 20:57 AST 57 units/L (5-40) H 10/17/19 20:57 ALT 22 units/L (7-56) 10/17/19 20:57 Alkaline Phosphatase 67 units/L (35-129) 10/17/19 20:57 Total Creatine Kinase 72 units/L (30-135) 10/30/19 09:54 CK-MB (CK-2) < 1.0 ng/mL (0.0-4.0) 10/30/19 09:54 CK-MB (CK-2) Rel Index 1.3 (0-4) 10/30/19 09:54 Troponin T < 0.010 ng/mL (0.00-0.029) 10/30/19 09:54 NT-Pro-B Natriuret Pep 317.6 pg/mL (0-450) 10/17/19 20:57 Total Protein 7.1 g/dL (6.3-8.2) 10/17/19 20:57 Albumin 3.0 g/dL (3.9-5) L 10/17/19 20:57 Albumin/Globulin Ratio 0.7 % 10/17/19 20:57 Triglycerides 279 mg/dL (2-149) H 10/27/19 05:40 Procalcitonin 0.06 ng/mL (<0.15) 10/20/19 14:51 Influenza A (Rapid) Positive (Negative) A 10/17/19 Unknown Influenza B (Rapid) Negative (Negative) 10/17/19 Unknown Active Medications - Current Medications Current Medications: Generic Name Dose Route Start Last Admin Trade Name Freq PRN Reason Stop Dose Admin Acetaminophen 650 mg 10/27/19 08:38 10/31/19 13:31 Tylenol PO 650 mg Q4H PRN Administration Non Cardiac Pain or Temp>100.5 Albuterol 2.5 mg 10/17/19 22:47 10/19/19 14:34 Proventil IH 2.5 mg Q3HRT PRN Administration Shortness Of Breath Albuterol/Ipratropium 1 ampul 10/19/19 20:00 10/31/19 07:39 Duoneb *Not For Prn Use* IH 1 ampul TIDRT EDI Administration Lipase/Protease/Amylase 1 each 10/24/19 11:54 10/30/19 14:59 Pancreaze 10,500 Unit FEEDTUBE 1 each PRN PRN Administration For Clogged Feeding Tube Fentanyl 50 mcg 10/23/19 17:29 Sublimaze IV Q10MIN PRN ANALGESIA Heparin Sodium (Porcine) 5,000 unit 10/18/19 06:00 10/31/19 13:31 Heparin SUB-Q 5,000 unit Q8HR EDI Administration Hydrophilic Ointment 1 applic 10/23/19 17:29 10/27/19 00:29 Vaseline Lip Therapy TP 1 applic Q2HR PRN Administration Dry Lips Fentanyl Citrate 2,000 mcg in 100 mls @ 13.25 mls/hr 10/23/19 18:00 10/31/19 10:28 Fentanyl Drip Premix IV Infused TITR EDI Titration Protocol 1 MCG/KG/HR Propofol 1,000 mg in 100 mls @ 7.95 mls/hr 10/23/19 18:00 10/28/19 18:39 Diprivan 10 Mg/Ml IV Infused TITR EDI Titration Protocol 5 MCG/KG/MIN Cefepime HCl 6 gm/ Sodium 250 mls @ 10.417 mls/hr 10/31/19 14:00 Chloride IV Q24H EDI Labetalol HCl 10 mg 10/24/19 14:32 Labetalol IV Q4H PRN Blood Pressure Lansoprazole 30 mg 10/30/19 11:00 10/31/19 10:27 Prevacid Solutab FEEDTUBE 30 mg BID EDI Administration Magnesium Hydroxide 30 ml 10/30/19 10:04 10/30/19 10:48 Milk Of Magnesia PO 30 ml Q4H PRN Administration INDIGESTION Morphine Sulfate 2 mg 10/17/19 22:47 10/30/19 14:18 Morphine IV 2 mg Q4H PRN Administration Pain, Moderate (4-6) Multi-Ingred Cream/Lotion/Oil/Oint 1 applic 10/23/19 17:29 Artificial Tears Ophth Oint OU Q4HR PRN Dry Eye(s) Ondansetron HCl 4 mg 10/17/19 22:47 10/29/19 02:45 Zofran IV 4 mg Q8H PRN Administration Nausea And Vomiting Simple Syrup 15 ml 10/24/19 11:54 Simple Syrup FEEDTUBE PRN PRN Hypoglycemia Simple Syrup 30 ml 10/24/19 11:54 Simple Syrup FEEDTUBE PRN PRN Hypoglycemia Sodium Bicarbonate 325 mg 10/24/19 11:54 10/30/19 14:59 Sodium Bicarbonate FEEDTUBE 325 mg PRN PRN Administration For Clogged Feeding Tube Sodium Chloride 10 ml 10/18/19 10:00 10/31/19 10:28 Sodium Chloride Flush Syringe 10 Ml IV 10 ml BID EDI Administration Sodium Chloride 10 ml 10/17/19 22:47 Sodium Chloride Flush Syringe 10 Ml IV PRN PRN LINE FLUSH Tamsulosin HCl 0.4 mg 10/30/19 11:00 10/31/19 10:28 Flomax PO 0.4 mg QDAY EDI Administration Nutrition/Malnutrition Assess - Dietary Evaluation Nutrition/Malnutrition Findings: Nutrition Notes Start: 10/19/19 13:20 Freq: Status: Active Protocol: Document 10/30/19 10:32 KS (Rec: 10/30/19 10:45 KS [id number]) Co-Sign 10/30/19 10:32 LP Nutrition Notes Initial or Follow up Reassessment Current Diagnosis Hypertension,Respiratory Failure Other Pertinent Diagnosis Influlenza A pneumonia, lymphedema, pulmonary edema, SOB, DVT Current Diet Vital AF 1.2 at 65 ml/hr Labs/Tests Na 148 Cr 0.4 BG 156 Pertinent Medications Reviewed Height 5 ft 6 in Weight 236.8 kg [place] Body Weight (kg) 59.09 BMI 84.2 Subjective/Other Information Vital AF 1.2 observed running at 65mL/hr (goal rate) at time of visit. Per RN, pt is tolerating TF. Pt is receiving free water flush of 250mL q4h for hypernatremia. Percent of energy/protein needs met: 99%/79% Burn Absent Trauma Absent Current % PO Negligible Minimum of two criteria No #2 Nutrition Diagnosis Inadequate oral intake Diagnosis Progress(for reassessment Continues documentation) Is patient on ventilator? Yes Is Patient Ambulatory and/or Out of Bed No REE-([facility]-confined to bed) 3619.464 Kcal/Kg value to use for calculation 8 Approximate Energy Requirements Using 1894 kcal/Kg Calculation Used for Recommendations Kcal/kg Additional Notes Protein needs: 148g (up to 2. 5g/kg IBW 59 kg) Fluid: 1 ml/kcal Nutrition Intervention Change Diet Order: TF Nutrition Support: Vital AF 1.2 at 65 ml/hr Flush 250 ml q4h for hypernatremia Flush 100 ml q4h once hypernatremia resolves Kcal 1,872 Protein (gm) 117 Fluid (mL) 1,265 Goal #1 Meet at least 75% of energy and protein needs Anticipated Discharge Needs: unable to determine at this time Follow-Up By: 01/14/20 Additional Comments F/U for TF tolerance, Na lab
[2019-10-31] MEDS ORDERED: BUMETANIDE 2.5 MG/10 ML VIAL IV ONE (18:00)
[2019-11-01] MEDS: fentaNYL DRIP Premix 2,000 MCG/100 ML BAG IV SCH ×2 (00:20→04:28)
[2019-11-01 05:03] LABS: ABG Base Excess 11.8 mmol/L (-2.0-3.0); ABG HCO3 38.2 mmol/L (20.0-26.0); ABG Methemoglobin 0.5 % (0.0-1.5); ABG Oxygen Saturation 94.2 % (95.0-99.0); ABG PCO2 60.3 mm Hg; ABG PH 7.419 pH Units (7.350-7.450)
[2019-11-01 05:40] LABS: Hematocrit 30.1 % (30.3-42.9); Hemoglobin 9.7 gm/dl (10.1-14.3); Mean Corpuscular HGB Conc 32 % (30-34); Mean Corpuscular Volume 82 fl (79-97); Platelet Count 356 K/mm3 (140-440); Red Blood Count 3.67 M/mm3 (3.65-5.03)
[2019-11-01 05:53] LABS: Red Cell Distribution Width 21.6 % (13.2-15.2)
[2019-11-01 05:57] LABS: BUN/Creatinine Ratio 43; Blood Urea Nitrogen 17 mg/dL (7-17); Calcium 8.8 mg/dL (8.4-10.2); Hemolysis Index 37
[2019-11-01] MEDS: HEPARIN 5,000 UNIT/1 ML VIAL SUB-Q SCH ×3 (06:12→21:16)
[2019-11-01 06:48] LABS: Anisocytosis 1+; Band Neutrophils # (Manual) 0.1 K/mm3; Basophils % (Manual) 0 % (0.0-1.8); Stomatocytes 2+; Total Cells Counted 100
[2019-11-01 06:49] LABS: Platelet Estimate Consistent w Auto
[2019-11-01] MEDS: IPRATROPIUM/ALBUTEROL SULFATE 3 ML AMPUL.NEB IH SCH ×3 (07:11→20:35)
--- NOTE | 2019-11-01 09:38 | Progress Note ---
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 Functional quadriplegia h/o HTN -Get CXR, ABG -Give one dose of bumetanide -Get weaning parameters, if acceptable will liberated from MVS -Has completed anti-viral therapy, on antibiotics per ID service -Continue with diuresis while monitoring renal function, electrolytes -Free water flushes and hypotonic solution for hypernatremia -Continue mobility protocol, off loading for pressure ulcer prevention- high risk patient -Continue all care as documented below -VAP bundle addresed -Aspiration precautions, HOB>40 degrees -Bronchodilators per protocol -Start tube feedings via the small bowel feeding tube -Continue airborne isolation -Continue with VTE prophylaxis -Continue stress ulcer prophylaxis - Continue with Accuchecks with glycemic control for SSI (While critically ill target blood glucose of 140-180 mg/dL; avoid hypoglycemia) - Continue to monitor hemodynamics closely - Continue to monitor electrolyte profile closely and replete as indicated -Chronic home medications, resume as clinically indicated -Blanchard catheter in this critically ill patient, with poor urine output, requiring accurate intake and output monitoring. -PT/OT -Weight loss and life style modifications on discharge. May need surgical bariatric intervention( discussed this with her and her sister- patient currently does not have health insurance but has applied) -Out patient evaluation for sleep apnea Discussed with RT and RN Updated her sister who was at the bedside CONDITION: CRITICAL PROGNOSIS: GUARDED CODE STATUS: FULL CODE The high probability of a clinically significant, sudden or life-threatening deterioration of the [respiratory, cardiovascular,] system(s) required my full and direct attention, intervention and personal management. The aggregate critical care time was [35] minutes without overlap. Time includes spent on; [x] Data Review and interpretation [x] Patient assessment and monitoring of vital signs [x] Documentation [x] Medication orders and management Subjective Date of service: 11/01/19 Principal diagnosis: acute respiratory distress Interval history: Patient is seen today for: acute hypoxic-hypercapnic respiratory failure on MVS; influenza infection; extreme obesity with probable DEAN Seen and examined at bedside; 24hour events reviewed; nursing and respiratory care staff consulted; no adverse overnight events reported to me; Patient is on MVS, ETT in place to MVS FIO2 40%, PEEP 6 airway pressures are within normal- on PSV 10/6, with adequate volumes. Off fentanyl and is comfortable- fever of 100.4 RUExt midline, Blanchard catheter Vitals, labs, medications, chart and imaging reviewed. Discussed with RT and RN Objective Vital Signs - 12hr 10/31/19 10/31/19 10/31/19 22:00 22:30 23:00 Temperature Pulse Rate 107 H 114 H 109 H Pulse Rate [ Anterior Bilateral Throughout] Respiratory 23 23 21 Rate Respiratory Rate [Anterior Bilateral Throughout] Blood Pressure 128/73 138/83 140/85 O2 Sat by Pulse 92 92 91 Oximetry 10/31/19 10/31/19 11/01/19 23:30 23:40 00:00 Temperature 100.6 F H Pulse Rate 114 H 104 H Pulse Rate [ Anterior Bilateral Throughout] Respiratory 21 21 Rate Respiratory Rate [Anterior Bilateral Throughout] Blood Pressure 136/81 140/85 O2 Sat by Pulse 94 95 Oximetry 11/01/19 11/01/19 11/01/19 00:30 01:00 01:01 Temperature Pulse Rate 115 H 108 H 110 H Pulse Rate [ Anterior Bilateral Throughout] Respiratory 21 22 Rate Respiratory Rate [Anterior Bilateral Throughout] Blood Pressure 151/87 130/75 130/75 O2 Sat by Pulse 89 92 94 Oximetry 11/01/19 11/01/19 11/01/19 01:03 01:30 02:00 Temperature Pulse Rate 121 H 108 H 119 H Pulse Rate [ Anterior Bilateral Throughout] Respiratory 24 25 H Rate Respiratory Rate [Anterior Bilateral Throughout] Blood Pressure 149/87 134/67 O2 Sat by Pulse 90 91 Oximetry 11/01/19 11/01/19 11/01/19 02:30 03:00 03:30 Temperature Pulse Rate 113 H 109 H 105 H Pulse Rate [ Anterior Bilateral Throughout] Respiratory 24 22 21 Rate Respiratory Rate [Anterior Bilateral Throughout] Blood Pressure 153/88 147/83 126/75 O2 Sat by Pulse 91 91 92 Oximetry 11/01/19 11/01/19 11/01/19 03:39 04:00 04:07 Temperature 100.8 F H Pulse Rate 107 H 109 H Pulse Rate [ Anterior Bilateral Throughout] Respiratory 22 Rate Respiratory Rate [Anterior Bilateral Throughout] Blood Pressure 135/84 135/84 O2 Sat by Pulse 93 93 Oximetry 11/01/19 11/01/19 11/01/19 04:30 05:00 05:30 Temperature Pulse Rate 110 H 104 H 104 H Pulse Rate [ Anterior Bilateral Throughout] Respiratory 23 17 21 Rate Respiratory Rate [Anterior Bilateral Throughout] Blood Pressure 136/83 127/73 150/82 O2 Sat by Pulse 90 90 90 Oximetry 11/01/19 11/01/19 11/01/19 06:00 07:11 07:56 Temperature 99.8 F H Pulse Rate 103 H 106 H Pulse Rate [ 109 H Anterior Bilateral Throughout] Respiratory 17 Rate Respiratory 22 Rate [Anterior Bilateral Throughout] Blood Pressure 129/75 135/69 O2 Sat by Pulse 93 93 Oximetry Constitutional: no acute distress, alert, other (nods appropriately to questio ns, ETT at 24cm, ) Eyes: non-icteric ENT: oropharynx moist, other (small bowel feeding tube in nares) Neck: supple, no lymphadenopathy, no JVD, other (short neck, large circunference) Effort: normal Ascultation: Bilateral: diminished breath sounds Cardiovascular: regular rate and rhythm, other (S1,S2) Gastrointestinal: normoactive bowel sounds, soft, non-tender, non-distended Integumentary: normal Extremities: no cyanosis, no edema, pink and warm, pulses normal Neurologic: non-focal exam, pupils equal and round Psychiatric: mood appropriate, affect normal CBC and BMP: 11/01/19 05:30 11/07/19 14:29 ABG, PT/INR, D-dimer: ABG POC ABG pH 7.428 (7.35-7.45) 10/31/19 04:42 ABG pH 7.419 pH Units (7.350-7.450) 11/01/19 04:25 POC ABG pCO2 62.2 (35-45) H 10/31/19 04:42 ABG pCO2 60.3 mm Hg 11/01/19 04:25 POC ABG pO2 76 (80-105) L 10/31/19 04:42 ABG pO2 67.0 mm Hg (80.0-90.0) L 11/01/19 04:25 POC ABG HCO3 41.1 (22-26 mml/L) 10/31/19 04:42 POC ABG Total CO2 43 (23-27mmol/L) 10/31/19 04:42 POC ABG O2 Sat 95 10/31/19 04:42 ABG O2 Saturation 94.2 % (95.0-99.0) L 11/01/19 04:25 Abnormal lab findings: Abnormal Labs 10/17/19 10/17/19 10/17/19 20:57 20:57 Unknown WBC 4.0 L RBC Hgb Hct MCV 78 L MCH 25 L RDW 24.7 H Lymph % (Auto) Cotton % (Auto) Lymph # Seg Neutrophils % Seg Neuts % (Manual) 77.0 H Monocytes % (Manual) 9.0 H Lymphocytes # (Manual) 0.6 L Monocytes # (Manual) POC ABG pH ABG pH POC ABG pCO2 POC ABG pO2 ABG pO2 ABG HCO3 ABG O2 Saturation ABG Base Excess ABG Hemoglobin Oxyhemoglobin Sodium Potassium 3.5 L Chloride Carbon Dioxide BUN Creatinine 0.6 L Glucose 147 H POC Glucose Calcium 7.9 L AST 57 H Total Creatine Kinase 857 H Albumin 3.0 L Triglycerides Influenza A (Rapid) Positive A 10/18/19 10/18/19 10/18/19 05:21 05:21 09:19 WBC 3.3 L RBC Hgb Hct MCV MCH 25 L RDW 24.3 H Lymph % (Auto) 12.5 L Cotton % (Auto) 7.9 H Lymph # 0.4 L Seg Neutrophils % 78.6 H Seg Neuts % (Manual) Monocytes % (Manual) Lymphocytes # (Manual) Monocytes # (Manual) POC ABG pH ABG pH POC ABG pCO2 POC ABG pO2 ABG pO2 131.3 H ABG HCO3 30.2 H ABG O2 Saturation ABG Base Excess 4.5 H ABG Hemoglobin 10.7 L Oxyhemoglobin Sodium Potassium Chloride Carbon Dioxide BUN Creatinine Glucose 167 H POC Glucose Calcium 8.3 L AST Total Creatine Kinase Albumin Triglycerides Influenza A (Rapid) 10/18/19 10/18/19 10/19/19 11:28 18:27 06:39 WBC RBC Hgb Hct MCV MCH RDW Lymph % (Auto) Cotton % (Auto) Lymph # Seg Neutrophils % Seg Neuts % (Manual) Monocytes % (Manual) Lymphocytes # (Manual) Monocytes # (Manual) POC ABG pH 7.461 H 7.487 H ABG pH POC ABG pCO2 53.4 H 52.8 H 51.7 H POC ABG pO2 70 L 71 L ABG pO2 ABG HCO3 ABG O2 Saturation ABG Base Excess ABG Hemoglobin Oxyhemoglobin Sodium Potassium Chloride Carbon Dioxide BUN Creatinine Glucose POC Glucose Calcium AST Total Creatine Kinase Albumin Triglycerides Influenza A (Rapid) 10/19/19 10/20/19 10/20/19 23:25 05:31 09:08 WBC RBC Hgb Hct MCV MCH RDW Lymph % (Auto) Cotton % (Auto) Lymph # Seg Neutrophils % Seg Neuts % (Manual) Monocytes % (Manual) Lymphocytes # (Manual) Monocytes # (Manual) POC ABG pH ABG pH POC ABG pCO2 POC ABG pO2 ABG pO2 ABG HCO3 ABG O2 Saturation ABG Base Excess ABG Hemoglobin Oxyhemoglobin Sodium Potassium Chloride Carbon Dioxide BUN Creatinine Glucose POC Glucose 203 H 144 H 163 H Calcium AST Total Creatine Kinase Albumin Triglycerides Influenza A (Rapid) 10/20/19 10/20/19 10/20/19 10:25 13:22 14:51 WBC RBC Hgb Hct MCV MCH RDW Lymph % (Auto) Cotton % (Auto) Lymph # Seg Neutrophils % Seg Neuts % (Manual) Monocytes % (Manual) Lymphocytes # (Manual) Monocytes # (Manual) POC ABG pH 7.632 H ABG pH POC ABG pCO2 POC ABG pO2 74 L ABG pO2 ABG HCO3 ABG O2 Saturation ABG Base Excess ABG Hemoglobin Oxyhemoglobin Sodium 147 H Potassium Chloride Carbon Dioxide 31 H BUN Creatinine 0.5 L Glucose 154 H POC Glucose 178 H Calcium 8.2 L AST Total Creatine Kinase Albumin Triglycerides Influenza A (Rapid) 10/20/19 10/20/19 10/20/19 14:51 17:16 21:30 WBC 11.2 H RBC Hgb Hct MCV 78 L MCH 25 L RDW 23.9 H Lymph % (Auto) Cotton % (Auto) Lymph # Seg Neutrophils % Seg Neuts % (Manual) Monocytes % (Manual) Lymphocytes # (Manual) Monocytes # (Manual) POC ABG pH ABG pH POC ABG pCO2 POC ABG pO2 ABG pO2 ABG HCO3 ABG O2 Saturation ABG Base Excess ABG Hemoglobin Oxyhemoglobin Sodium Potassium Chloride Carbon Dioxide BUN Creatinine Glucose POC Glucose 143 H 152 H Calcium AST Total Creatine Kinase Albumin Triglycerides Influenza A (Rapid) 10/20/19 10/21/19 10/21/19 22:52 05:55 08:27 WBC RBC Hgb Hct MCV MCH RDW Lymph % (Auto) Cotton % (Auto) Lymph # Seg Neutrophils % Seg Neuts % (Manual) Monocytes % (Manual) Lymphocytes # (Manual) Monocytes # (Manual) POC ABG pH ABG pH POC ABG pCO2 POC ABG pO2 ABG pO2 ABG HCO3 ABG O2 Saturation ABG Base Excess ABG Hemoglobin Oxyhemoglobin Sodium Potassium Chloride Carbon Dioxide BUN Creatinine Glucose POC Glucose 179 H 115 H 131 H Calcium AST Total Creatine Kinase Albumin Triglycerides Influenza A (Rapid) 10/21/19 10/21/19 10/21/19 11:52 16:23 23:38 WBC RBC Hgb Hct MCV MCH RDW Lymph % (Auto) Cotton % (Auto) Lymph # Seg Neutrophils % Seg Neuts % (Manual) Monocytes % (Manual) Lymphocytes # (Manual) Monocytes # (Manual) POC ABG pH ABG pH POC ABG pCO2 POC ABG pO2 ABG pO2 ABG HCO3 ABG O2 Saturation ABG Base Excess ABG Hemoglobin Oxyhemoglobin Sodium Potassium Chloride Carbon Dioxide BUN Creatinine Glucose POC Glucose 122 H 120 H 115 H Calcium AST Total Creatine Kinase Albumin Triglycerides Influenza A (Rapid) 10/22/19 10/22/19 10/22/19 00:35 05:19 06:10 WBC RBC Hgb Hct MCV MCH 25 L RDW 22.8 H Lymph % (Auto) Cotton % (Auto) Lymph # Seg Neutrophils % Seg Neuts % (Manual) Monocytes % (Manual) Lymphocytes # (Manual) Monocytes # (Manual) POC ABG pH ABG pH 7.520 H POC ABG pCO2 POC ABG pO2 ABG pO2 64.4 L ABG HCO3 36.8 H ABG O2 Saturation ABG Base Excess 12.6 H ABG Hemoglobin 10.4 L Oxyhemoglobin Sodium Potassium Chloride Carbon Dioxide BUN Creatinine Glucose POC Glucose 108 H Calcium AST Total Creatine Kinase Albumin Triglycerides Influenza A (Rapid) 10/22/19 10/24/19 10/25/19 15:40 05:49 04:20 WBC RBC Hgb Hct MCV MCH RDW Lymph % (Auto) Cotton % (Auto) Lymph # Seg Neutrophils % Seg Neuts % (Manual) Monocytes % (Manual) Lymphocytes # (Manual) Monocytes # (Manual) POC ABG pH 7.454 H ABG pH POC ABG pCO2 64.1 H 63.5 H POC ABG pO2 73 L ABG pO2 ABG HCO3 ABG O2 Saturation ABG Base Excess ABG Hemoglobin Oxyhemoglobin Sodium 136 L D Potassium Chloride 97.6 L Carbon Dioxide BUN 19 H Creatinine Glucose 125 H POC Glucose Calcium AST Total Creatine Kinase Albumin Triglycerides Influenza A (Rapid) 10/25/19 10/25/19 10/26/19 05:35 05:35 04:19 WBC RBC Hgb 10.0 L Hct MCV MCH 25 L RDW 22.0 H Lymph % (Auto) Cotton % (Auto) Lymph # Seg Neutrophils % Seg Neuts % (Manual) Monocytes % (Manual) Lymphocytes # (Manual) Monocytes # (Manual) POC ABG pH ABG pH POC ABG pCO2 66.1 H POC ABG pO2 75 L ABG pO2 ABG HCO3 ABG O2 Saturation ABG Base Excess ABG Hemoglobin Oxyhemoglobin Sodium 147 H D Potassium Chloride Carbon Dioxide 34 H D BUN 23 H Creatinine 0.5 L Glucose 184 H POC Glucose Calcium AST Total Creatine Kinase Albumin Triglycerides Influenza A (Rapid) 10/26/19 10/26/19 10/26/19 05:20 05:20 12:44 WBC RBC Hgb 9.5 L Hct MCV MCH 25 L RDW 22.3 H Lymph % (Auto) Cotton % (Auto) Lymph # Seg Neutrophils % Seg Neuts % (Manual) Monocytes % (Manual) Lymphocytes # (Manual) Monocytes # (Manual) POC ABG pH 7.501 H ABG pH POC ABG pCO2 54.7 H POC ABG pO2 69 L ABG pO2 ABG HCO3 ABG O2 Saturation ABG Base Excess ABG Hemoglobin Oxyhemoglobin Sodium 152 H Potassium Chloride Carbon Dioxide 33 H BUN 27 H Creatinine 0.6 L Glucose 135 H POC Glucose Calcium AST Total Creatine Kinase Albumin Triglycerides Influenza A (Rapid) 10/27/19 10/27/19 10/27/19 03:30 05:40 05:40 WBC RBC 3.62 L Hgb 9.4 L Hct 29.1 L MCV MCH 26 L RDW 21.7 H Lymph % (Auto) Cotton % (Auto) Lymph # Seg Neutrophils % Seg Neuts % (Manual) Monocytes % (Manual) Lymphocytes # (Manual) Monocytes # (Manual) POC ABG pH ABG pH 7.472 H POC ABG pCO2 POC ABG pO2 ABG pO2 ABG HCO3 38.2 H ABG O2 Saturation ABG Base Excess 13.3 H ABG Hemoglobin 6.5 L Oxyhemoglobin Sodium 149 H Potassium 3.3 L Chloride Carbon Dioxide 31 H BUN 25 H Creatinine 0.5 L Glucose 142 H POC Glucose Calcium 8.2 L AST Total Creatine Kinase Albumin Triglycerides Influenza A (Rapid) 10/27/19 10/28/19 10/28/19 05:40 05:19 05:56 WBC RBC Hgb Hct MCV MCH RDW Lymph % (Auto) Cotton % (Auto) Lymph # Seg Neutrophils % Seg Neuts % (Manual) Monocytes % (Manual) Lymphocytes # (Manual) Monocytes # (Manual) POC ABG pH 7.489 H ABG pH POC ABG pCO2 51.0 H POC ABG pO2 71 L ABG pO2 ABG HCO3 ABG O2 Saturation ABG Base Excess ABG Hemoglobin Oxyhemoglobin Sodium 153 H Potassium Chloride Carbon Dioxide 31 H BUN Creatinine 0.4 L Glucose 111 H POC Glucose Calcium 8.1 L AST Total Creatine Kinase Albumin Triglycerides 279 H Influenza A (Rapid) 10/29/19 10/29/19 10/30/19 03:54 04:21 04:48 WBC RBC Hgb Hct MCV MCH RDW Lymph % (Auto) Cotton % (Auto) Lymph # Seg Neutrophils % Seg Neuts % (Manual) Monocytes % (Manual) Lymphocytes # (Manual) Monocytes # (Manual) POC ABG pH 7.506 H 7.508 H ABG pH POC ABG pCO2 53.6 H 49.6 H POC ABG pO2 ABG pO2 ABG HCO3 ABG O2 Saturation ABG Base Excess ABG Hemoglobin Oxyhemoglobin Sodium 150 H Potassium Chloride Carbon Dioxide BUN Creatinine 0.4 L Glucose 137 H POC Glucose Calcium AST Total Creatine Kinase Albumin Triglycerides Influenza A (Rapid) 10/30/19 10/30/19 10/31/19 09:54 21:08 00:17 WBC RBC Hgb Hct MCV MCH RDW Lymph % (Auto) Cotton % (Auto) Lymph # Seg Neutrophils % Seg Neuts % (Manual) Monocytes % (Manual) Lymphocytes # (Manual) Monocytes # (Manual) POC ABG pH 7.455 H ABG pH POC ABG pCO2 58.6 H POC ABG pO2 74 L ABG pO2 ABG HCO3 ABG O2 Saturation ABG Base Excess ABG Hemoglobin Oxyhemoglobin Sodium 148 H Potassium Chloride Carbon Dioxide BUN Creatinine 0.4 L Glucose 156 H POC Glucose 160 H Calcium AST Total Creatine Kinase Albumin Triglycerides Influenza A (Rapid) 0110/31/19 10/31/19 04:42 08:02 16:24 WBC RBC Hgb Hct MCV MCH RDW Lymph % (Auto) Cotton % (Auto) Lymph # Seg Neutrophils % Seg Neuts % (Manual) Monocytes % (Manual) Lymphocytes # (Manual) Monocytes # (Manual) POC ABG pH ABG pH POC ABG pCO2 62.2 H POC ABG pO2 76 L ABG pO2 ABG HCO3 ABG O2 Saturation ABG Base Excess ABG Hemoglobin Oxyhemoglobin Sodium 149 H Potassium Chloride Carbon Dioxide BUN Creatinine 0.4 L Glucose 146 H POC Glucose 143 H Calcium AST Total Creatine Kinase Albumin Triglycerides Influenza A (Rapid) 11/01/19 11/01/19 11/01/19 04:25 05:30 05:30 WBC RBC Hgb 9.7 L Hct 30.1 L MCV MCH 26 L RDW 21.6 H Lymph % (Auto) Cotton % (Auto) Lymph # Seg Neutrophils % Seg Neuts % (Manual) Monocytes % (Manual) 10.0 H Lymphocytes # (Manual) Monocytes # (Manual) 0.9 H POC ABG pH ABG pH POC ABG pCO2 POC ABG pO2 ABG pO2 67.0 L ABG HCO3 38.2 H ABG O2 Saturation 94.2 L ABG Base Excess 11.8 H ABG Hemoglobin 10.7 L Oxyhemoglobin 91.6 L Sodium 147 H Potassium Chloride Carbon Dioxide 31 H BUN Creatinine 0.4 L Glucose 136 H POC Glucose Calcium AST Total Creatine Kinase Albumin Triglycerides Influenza A (Rapid) Allied health notes reviewed: RT
[2019-11-01] MEDS: LANSOPRAZOLE 30 MG SOLUTAB FEEDTUBE SCH ×2 (10:02→21:16)
[2019-11-01] MEDS: TAMSULOSIN 0.4 MG CAP PO SCH (10:02)
[2019-11-01] MEDS ORDERED: BUMETANIDE 1 MG/4 ML INJ IV ONE ×2 (10:04→10:08)
[2019-11-01] MEDS ORDERED: BUMETANIDE 2.5 MG/10 ML VIAL IV NR ×2 (10:30)
--- NOTE | 2019-11-01 11:22 | Progress Note ---
Assessment and Plan Cultures: 10/17/2019 blood culture: No growth 10/17/2019 influenza A: Positive 10/23/2019 Resp culture: E cloacae 10/25/2019 tracheal aspirate: E cloacae 10/25/2019 blood culture: no growth thus far A/P: 49-year-old female with morbid obesity, hypertension, lymphedema, functional quadriplegia and sleep apnea admitted with: #Influenza A with acute respiratory failure: completed high dose prolonged Tamiflu course. Intubated, on mechanical ventilation. #Superimposed pneumonia: resp culture with E cloacae, patient on Cefepime. Isolate is S to cefepime #Extreme morbid obesity: BMI is 94.3. ?Cefepime 2 gm q8 hrs may not be adequate, but higher doses could increase risk of seizures. Recs: Continue 6g daily cefepime as continuous infusion due to obesity Thank you for the consult, will follow. Alvaro Jade MD [facility] ([facility]) M: [phone] O: [phone] F: [phone] Subjective Date of service: 11/01/19 Principal diagnosis: acute respiratory distress Objective - Exam Narrative Exam: Physical Exam: Exam limited due to size. Constitutional: intubated, sedated, morbidly obese Head, Ears, Nose: Normocephalic, atraumatic. External ears, nose normal Eyes: Conjunctivae/corneas clear. No icterus. No ptosis. Neck: Intubated Oral: Intubated Cardiovascular: S1, S2 normal. Respiratory: Good air entry, clear to auscultation bilaterally GI: Soft, non-tender; bowel sounds normal. No peritoneal signs. Musculoskeletal: No pedal edema, no cyanosis. Skin: No rash or abscess Hem/Lymphatic: No palpable cervical or supraclavicular nodes. No lymphangitis Psych: Mood ok. Affect normal Neurological: Intubated, sedated - Constitutional Vitals: Vital Signs Temp Pulse Resp BP Pulse Ox 99.8 F H 105 H 22 143/80 98 11/01/19 07:56 11/01/19 11:00 11/01/19 11:00 11/01/19 11:00 11/01/19 11:00 Temperature -Last 24 Hours Temperature 99.8 F Temperature 100.8 F Temperature 100.6 F Temperature 100.2 F Temperature 99.8 F Temperature 100.7 F - Labs CBC & Chem 7: 11/01/19 05:30 11/01/19 05:30 Labs: Abnormal lab results 10/31/19 11/01/19 11/01/19 Range/Units 16:24 04:25 05:30 Hgb 9.7 L (10.1-14.3) gm/dl Hct 30.1 L (30.3-42.9) % MCH 26 L (28-32) pg RDW 21.6 H (13.2-15.2) % Monocytes % (Manual) 10.0 H (0.0-7.3) % Monocytes # (Manual) 0.9 H (0.0-0.8) K/mm3 POC ABG pH (7.35-7.45) POC ABG pCO2 (35-45) ABG pO2 67.0 L (80.0-90.0) mm Hg ABG HCO3 38.2 H (20.0-26.0) mmol/L ABG O2 Saturation 94.2 L (95.0-99.0) % ABG Base Excess 11.8 H (-2.0-3.0) mmol/L ABG Hemoglobin 10.7 L (12.0-16.0) gm/dl Oxyhemoglobin 91.6 L (95.0-99.0) % Sodium (137-145) mmol/L Carbon Dioxide (22-30) mmol/L Creatinine (0.7-1.2) mg/dL Glucose (65-100) mg/dL POC Glucose 143 H (70-105) 11/01/19 11/01/19 Range/Units 05:30 10:32 Hgb (10.1-14.3) gm/dl Hct (30.3-42.9) % MCH (28-32) pg RDW (13.2-15.2) % Monocytes % (Manual) (0.0-7.3) % Monocytes # (Manual) (0.0-0.8) K/mm3 POC ABG pH 7.465 H (7.35-7.45) POC ABG pCO2 56.8 H (35-45) ABG pO2 (80.0-90.0) mm Hg ABG HCO3 (20.0-26.0) mmol/L ABG O2 Saturation (95.0-99.0) % ABG Base Excess (-2.0-3.0) mmol/L ABG Hemoglobin (12.0-16.0) gm/dl Oxyhemoglobin (95.0-99.0) % Sodium 147 H (137-145) mmol/L Carbon Dioxide 31 H (22-30) mmol/L Creatinine 0.4 L (0.7-1.2) mg/dL Glucose 136 H (65-100) mg/dL POC Glucose (70-105)
--- NOTE | 2019-11-01 11:59 | XRay Report ---
CHEST 1 VIEW INDICATION / CLINICAL INFORMATION: resp failure. COMPARISON: 10/30/2019 FINDINGS: SUPPORT DEVICES: Stable, satisfactory device positioning. HEART / MEDIASTINUM: Cardiac silhouette remains mildly enlarged, stable.. LUNGS / PLEURA: Diffuse bilateral pulmonary opacities persist unchanged. Small bilateral pleural effu sions are stable. No pneumothorax. ADDITIONAL FINDINGS: No significant additional findings. IMPRESSION: 1. Stable appearance of the chest radiograph. Signer Name: Angélica Salter MD Signed: 11/01/2019 11:54 AM Workstation Name: [id number]
--- NOTE | 2019-11-01 13:16 | Progress Note ---
Assessment and Plan Assessment and plan: Acute hypoxemic respiratory failure. Respiratory/tracheal aspirate reveals Enterobacter. The patient failed BiPAP and required intubation on 10/23/2019. Patient currently on AC mode ventilation. Pulmonary following. Sepsis. Etiology secondary to pneumonia/influenza A. Continue antibiotics per ID. Follow-up cultures. Influenza A. Completed high dose prolonged Tamiflu course. Bilateral pneumonia. resp culture with GNR, patient on Cefepime. Acute on chronic diastolic heart failure. Echocardiogram revealed The left ventricular size is mildly dilated, mild to moderate concentric LVH, est EF 40- 45%, left atrium is mildly dilated, trace MR, mild TR, mild to moderate Pulmonary hypertension, RVSP is calculated at 42 mmHg. Obesity hypoventilation syndrome/DEAN. Outpatient evaluation for sleep apnea Morbid obesity. BMI is 94.3. Weight loss and life style modifications on discharge. May need surgical bariatric intervention The high probability of a clinically significant, sudden or life-threatening deterioration of the [respiratory, cardiovascular,] system(s) required my full and direct attention, intervention and personal management. The aggregate critical care time was [32] minutes without overlap. Time includes spent on; [x] Data Review and interpretation [x] Patient assessment and monitoring of vital signs [x] Documentation [x] Medication orders and management History Interval history: Patient is a 49 yo woman with a history of severe obesity BMI 93.6 (579 lbs), hypertension, lymphedema, functional quadriplegia and DEAN non compliant with CPAP who admitted to [facility] ED on 10/18/19 with Respiratory failure wtih pulse ox in the 50s. She was treated with BIPAP up until 10/23/2019 around 5pm when she was intubated by Anesthesia using guidescope. Trach aspirate growing GNR (still pending) and iv zosyn started then switched to Cefepime by ID. Hospitalist Physical - Constitutional Vitals: Temp Pulse Resp BP Pulse Ox 99.0 F 105 H 12 126/65 93 11/01/19 12:00 11/01/19 12:30 11/01/19 12:30 11/01/19 12:30 11/01/19 12:30 General appearance: Present: obese, other (Intubated on mechanical ventilation). Absent: mild distress - EENT Eyes: Present: PERRL, EOM intact ENT: hearing intact, clear oral mucosa, dentition normal - Neck Neck: Present: supple, normal ROM - Respiratory Respiratory effort: normal Respiratory: bilateral: CTA - Cardiovascular Rhythm: regular Heart Sounds: Present: S1 & S2. Absent: gallop, rub - Extremities Extremities: no ischemia, No edema, Full ROM - Abdominal General gastrointestinal: soft, non-tender, non-distended, normal bowel sounds - Integumentary Integumentary: Present: clear, warm, dry - Neurologic Neurologic: CNII-XII intact, moves all extremities Results - Labs CBC & Chem 7: 11/01/19 05:30 11/01/19 05:30 Labs: Laboratory Last Values WBC 8.5 K/mm3 (4.5-11.0) 11/01/19 05:30 RBC 3.67 M/mm3 (3.65-5.03) 11/01/19 05:30 Hgb 9.7 gm/dl (10.1-14.3) L 11/01/19 05:30 Hct 30.1 % (30.3-42.9) L 11/01/19 05:30 MCV 82 fl (79-97) 11/01/19 05:30 MCH 26 pg (28-32) L 11/01/19 05:30 MCHC 32 % (30-34) 11/01/19 05:30 RDW 21.6 % (13.2-15.2) H 11/01/19 05:30 Plt Count 356 K/mm3 (140-440) 11/01/19 05:30 Lymph % (Auto) 12.5 % (13.4-35.0) L 10/18/19 05:21 [place] % (Auto) 7.9 % (0.0-7.3) H 10/18/19 05:21 Eos % (Auto) 0.0 % (0.0-4.3) 10/18/19 05:21 Baso % (Auto) 1.0 % (0.0-1.8) 10/18/19 05:21 Lymph # 0.4 K/mm3 (1.2-5.4) L 10/18/19 05:21 [place] # 0.3 K/mm3 (0.0-0.8) 10/18/19 05:21 Eos # 0.0 K/mm3 (0.0-0.4) 10/18/19 05:21 Baso # 0.0 K/mm3 (0.0-0.1) 10/18/19 05:21 Add Manual Diff Complete 11/01/19 05:30 Total Counted 100 11/01/19 05:30 Seg Neutrophils % 78.6 % (40.0-70.0) H 10/18/19 05:21 Seg Neuts % (Manual) 70.0 % (40.0-70.0) 11/01/19 05:30 Band Neutrophils % 1.0 % 11/01/19 05:30 Lymphocytes % (Manual) 17.0 % (13.4-35.0) 11/01/19 05:30 Reactive Lymphs % (Man) 0 % 11/01/19 05:30 Monocytes % (Manual) 10.0 % (0.0-7.3) H 11/01/19 05:30 Eosinophils % (Manual) 1.0 % (0.0-4.3) 11/01/19 05:30 Basophils % (Manual) 0 % (0.0-1.8) 11/01/19 05:30 Metamyelocytes % 1.0 % 11/01/19 05:30 Myelocytes % 0 % 11/01/19 05:30 Promyelocytes % 0 % 11/01/19 05:30 Blast Cells % 0 % 11/01/19 05:30 Nucleated RBC % Not Reportable 11/01/19 05:30 Seg Neutrophils # 2.6 K/mm3 (1.8-7.7) 10/18/19 05:21 Seg Neutrophils # Man 6.0 K/mm3 (1.8-7.7) 11/01/19 05:30 Band Neutrophils # 0.1 K/mm3 11/01/19 05:30 Lymphocytes # (Manual) 1.4 K/mm3 (1.2-5.4) 11/01/19 05:30 Abs React Lymphs (Man) 0.0 K/mm3 11/01/19 05:30 Monocytes # (Manual) 0.9 K/mm3 (0.0-0.8) H 11/01/19 05:30 Eosinophils # (Manual) 0.1 K/mm3 (0.0-0.4) 11/01/19 05:30 Basophils # (Manual) 0.0 K/mm3 (0.0-0.1) 11/01/19 05:30 Metamyelocytes # 0.1 K/mm3 11/01/19 05:30 Myelocytes # 0.0 K/mm3 11/01/19 05:30 Promyelocytes # 0.0 K/mm3 11/01/19 05:30 Blast Cells # 0.0 K/mm3 11/01/19 05:30 WBC Morphology Not Reportable 11/01/19 05:30 Hypersegmented Neuts Not Reportable 11/01/19 05:30 Hyposegmented Neuts Not Reportable 11/01/19 05:30 Hypogranular Neuts Not Reportable 11/01/19 05:30 Smudge Cells Not Reportable 11/01/19 05:30 Toxic Granulation Not Reportable 11/01/19 05:30 Toxic Vacuolation Not Reportable 11/01/19 05:30 Dohle Bodies Not Reportable 11/01/19 05:30 Pelger-Huet Anomaly Not Reportable 11/01/19 05:30 Krista Rods Not Reportable 11/01/19 05:30 Platelet Estimate Consistent w auto 11/01/19 05:30 Clumped Platelets Not Reportable 11/01/19 05:30 Plt Clumps, EDTA Not Reportable 11/01/19 05:30 Large Platelets Not Reportable 11/01/19 05:30 Giant Platelets Not Reportable 11/01/19 05:30 Platelet Satelliting Not Reportable 11/01/19 05:30 Plt Morphology Comment Not Reportable 11/01/19 05:30 RBC Morphology Not Reportable 11/01/19 05:30 Dimorphic RBCs Not Reportable 11/01/19 05:30 Polychromasia Rare 11/01/19 05:30 Hypochromasia Not Reportable 11/01/19 05:30 Poikilocytosis Not Reportable 11/01/19 05:30 Anisocytosis 1+ 11/01/19 05:30 Microcytosis Not Reportable 11/01/19 05:30 Macrocytosis Not Reportable 11/01/19 05:30 Spherocytes Not Reportable 11/01/19 05:30 Pappenheimer Bodies Not Reportable 11/01/19 05:30 Sickle Cells Not Reportable 11/01/19 05:30 Target Cells Not Reportable 11/01/19 05:30 Tear Drop Cells Not Reportable 11/01/19 05:30 Ovalocytes Not Reportable 11/01/19 05:30 Stomatocytes 2+ 11/01/19 05:30 Helmet Cells Not Reportable 11/01/19 05:30 Gallagher-Watts Bodies Not Reportable 11/01/19 05:30 [place] Rings Not Reportable 11/01/19 05:30 James Cells Not Reportable 11/01/19 05:30 Bite Cells Not Reportable 11/01/19 05:30 Crenated Cell Not Reportable 11/01/19 05:30 Elliptocytes Not Reportable 11/01/19 05:30 Acanthocytes (Spur) Not Reportable 11/01/19 05:30 Rouleaux Not Reportable 11/01/19 05:30 Hemoglobin C Crystals Not Reportable 11/01/19 05:30 Schistocytes Not Reportable 11/01/19 05:30 Malaria parasites Not Reportable 11/01/19 05:30 Alejandro Bodies Not Reportable 11/01/19 05:30 Hem Pathologist Commnt No 11/01/19 05:30 POC ABG pH 7.465 (7.35-7.45) H 11/01/19 10:32 ABG pH 7.419 pH Units (7.350-7.450) 11/01/19 04:25 POC ABG pCO2 56.8 (35-45) H 11/01/19 10:32 ABG pCO2 60.3 mm Hg 11/01/19 04:25 POC ABG pO2 76 (80-105) L 10/31/19 04:42 ABG pO2 67.0 mm Hg (80.0-90.0) L 11/01/19 04:25 POC ABG HCO3 40.9 (22-26 mml/L) 11/01/19 10:32 ABG HCO3 38.2 mmol/L (20.0-26.0) H 11/01/19 04:25 POC ABG Total CO2 43 (23-27mmol/L) 11/01/19 10:32 POC ABG O2 Sat 81 11/01/19 10:32 ABG O2 Saturation 94.2 % (95.0-99.0) L 11/01/19 04:25 ABG O2 Content 13.8 (0.0-44) 11/01/19 04:25 POC ABG Base Excess 17 ((-2) - (+3)mmol/L) 11/01/19 10:32 ABG Base Excess 11.8 mmol/L (-2.0-3.0) H 11/01/19 04:25 ABG Hemoglobin 10.7 gm/dl (12.0-16.0) L 11/01/19 04:25 ABG Carboxyhemoglobin 2.3 % (0.0-5.0) 11/01/19 04:25 ABG Methemoglobin 0.5 % (0.0-1.5) 11/01/19 04:25 Oxyhemoglobin 91.6 % (95.0-99.0) L 11/01/19 04:25 FiO2 35 % 11/01/19 10:32 Sodium 147 mmol/L (137-145) H 11/01/19 05:30 Potassium 3.7 mmol/L (3.6-5.0) 11/01/19 05:30 Chloride 102.3 mmol/L (98-107) 11/01/19 05:30 Carbon Dioxide 31 mmol/L (22-30) H 11/01/19 05:30 Anion Gap 17 mmol/L 11/01/19 05:30 BUN 17 mg/dL (7-17) 11/01/19 05:30 Creatinine 0.4 mg/dL (0.7-1.2) L 11/01/19 05:30 Estimated GFR > 60 ml/min 11/01/19 05:30 BUN/Creatinine Ratio 43 % 11/01/19 05:30 Glucose 136 mg/dL (65-100) H 11/01/19 05:30 POC Glucose 143 (70-105) H 10/31/19 16:24 Calcium 8.8 mg/dL (8.4-10.2) 11/01/19 05:30 Total Bilirubin 0.20 mg/dL (0.1-1.2) 10/17/19 20:57 AST 57 units/L (5-40) H 10/17/19 20:57 ALT 22 units/L (7-56) 10/17/19 20:57 Alkaline Phosphatase 67 units/L (35-129) 10/17/19 20:57 Total Creatine Kinase 72 units/L (30-135) 10/30/19 09:54 CK-MB (CK-2) < 1.0 ng/mL (0.0-4.0) 10/30/19 09:54 CK-MB (CK-2) Rel Index 1.3 (0-4) 10/30/19 09:54 Troponin T < 0.010 ng/mL (0.00-0.029) 10/30/19 09:54 NT-Pro-B Natriuret Pep 317.6 pg/mL (0-450) 10/17/19 20:57 Total Protein 7.1 g/dL (6.3-8.2) 10/17/19 20:57 Albumin 3.0 g/dL (3.9-5) L 10/17/19 20:57 Albumin/Globulin Ratio 0.7 % 10/17/19 20:57 Triglycerides 279 mg/dL (2-149) H 10/27/19 05:40 Procalcitonin 0.06 ng/mL (<0.15) 10/20/19 14:51 Influenza A (Rapid) Positive (Negative) A 10/17/19 Unknown Influenza B (Rapid) Negative (Negative) 10/17/19 Unknown Active Medications - Current Medications Current Medications: Generic Name Dose Route Start Last Admin Trade Name Freq PRN Reason Stop Dose Admin Acetaminophen 650 mg 10/27/19 08:38 10/31/19 13:31 Tylenol PO 650 mg Q4H PRN Administration Non Cardiac Pain or Temp>100.5 Albuterol 2.5 mg 10/17/19 22:47 10/19/19 14:34 Proventil IH 2.5 mg Q3HRT PRN Administration Shortness Of Breath Albuterol/Ipratropium 1 ampul 10/19/19 20:00 11/01/19 07:11 Duoneb *Not For Prn Use* IH 1 ampul TIDRT EDI Administration Lipase/Protease/Amylase 1 each 10/24/19 11:54 10/30/19 14:59 Pancreaze 10,500 Unit FEEDTUBE 1 each PRN PRN Administration For Clogged Feeding Tube Bumetanide 2 mg 11/01/19 10:30 11/01/19 11:20 Bumex IV 11/01/19 18:00 2 mg ONCE NR Administration Fentanyl 50 mcg 10/23/19 17:29 Sublimaze IV Q10MIN PRN ANALGESIA Heparin Sodium (Porcine) 5,000 unit 10/18/19 06:00 11/01/19 06:12 Heparin SUB-Q 5,000 unit Q8HR EDI Administration Hydrophilic Ointment 1 applic 10/23/19 17:29 10/27/19 00:29 Vaseline Lip Therapy TP 1 applic Q2HR PRN Administration Dry Lips Fentanyl Citrate 2,000 mcg in 100 mls @ 13.25 mls/hr 10/23/19 18:00 11/01/19 07:30 Fentanyl Drip Premix IV 0 mcg/kg/hr TITR EDI 0 mls/hr Titration Protocol 1 MCG/KG/HR Propofol 1,000 mg in 100 mls @ 7.95 mls/hr 10/23/19 18:00 10/28/19 18:39 Diprivan 10 Mg/Ml IV Infused TITR EDI Titration Protocol 5 MCG/KG/MIN Cefepime HCl 6 gm/ Sodium 250 mls @ 10.417 mls/hr 10/31/19 14:00 10/31/19 14:00 Chloride IV 10.417 mls/hr Q24H EDI Administration Labetalol HCl 10 mg 10/24/19 14:32 Labetalol IV Q4H PRN Blood Pressure Lansoprazole 30 mg 10/30/19 11:00 11/01/19 10:02 Prevacid Solutab FEEDTUBE 30 mg BID EDI Administration Magnesium Hydroxide 30 ml 10/30/19 10:04 10/30/19 10:48 Milk Of Magnesia PO 30 ml Q4H PRN Administration INDIGESTION Morphine Sulfate 2 mg 10/17/19 22:47 10/30/19 14:18 Morphine IV 2 mg Q4H PRN Administration Pain, Moderate (4-6) Multi-Ingred Cream/Lotion/Oil/Oint 1 applic 10/23/19 17:29 Artificial Tears Ophth Oint OU Q4HR PRN Dry Eye(s) Ondansetron HCl 4 mg 10/17/19 22:47 10/29/19 02:45 Zofran IV 4 mg Q8H PRN Administration Nausea And Vomiting Simple Syrup 15 ml 10/24/19 11:54 Simple Syrup FEEDTUBE PRN PRN Hypoglycemia Simple Syrup 30 ml 10/24/19 11:54 Simple Syrup FEEDTUBE PRN PRN Hypoglycemia Sodium Bicarbonate 325 mg 10/24/19 11:54 10/30/19 14:59 Sodium Bicarbonate FEEDTUBE 325 mg PRN PRN Administration For Clogged Feeding Tube Sodium Chloride 10 ml 10/18/19 10:00 11/01/19 10:02 Sodium Chloride Flush Syringe 10 Ml IV 10 ml BID EDI Administration Sodium Chloride 10 ml 10/17/19 22:47 Sodium Chloride Flush Syringe 10 Ml IV PRN PRN LINE FLUSH Tamsulosin HCl 0.4 mg 10/30/19 11:00 11/01/19 10:02 Flomax PO 0.4 mg QDAY EDI Administration Nutrition/Malnutrition Assess - Dietary Evaluation Nutrition/Malnutrition Findings: Nutrition Notes Start: 10/19/19 13:20 Freq: Status: Active Protocol: Document 10/30/19 10:32 KS (Rec: 10/30/19 10:45 KS [id number]) Co-Sign 10/30/19 10:32 LP Nutrition Notes Initial or Follow up Reassessment Current Diagnosis Hypertension,Respiratory Failure Other Pertinent Diagnosis Influlenza A pneumonia, lymphedema, pulmonary edema, SOB, DVT Current Diet Vital AF 1.2 at 65 ml/hr Labs/Tests Na 148 Cr 0.4 BG 156 Pertinent Medications Reviewed Height 5 ft 6 in Weight 236.8 kg [place] Body Weight (kg) 59.09 BMI 84.2 Subjective/Other Information Vital AF 1.2 observed running at 65mL/hr (goal rate) at time of visit. Per RN, pt is tolerating TF. Pt is receiving free water flush of 250mL q4h for hypernatremia. Percent of energy/protein needs met: 99%/79% Burn Absent Trauma Absent Current % PO Negligible Minimum of two criteria No #2 Nutrition Diagnosis Inadequate oral intake Diagnosis Progress(for reassessment Continues documentation) Is patient on ventilator? Yes Is Patient Ambulatory and/or Out of Bed No REE-([facility]-confined to bed) 3619.464 Kcal/Kg value to use for calculation 8 Approximate Energy Requirements Using 1894 kcal/Kg Calculation Used for Recommendations Kcal/kg Additional Notes Protein needs: 148g (up to 2. 5g/kg IBW 59 kg) Fluid: 1 ml/kcal Nutrition Intervention Change Diet Order: TF Nutrition Support: Vital AF 1.2 at 65 ml/hr Flush 250 ml q4h for hypernatremia Flush 100 ml q4h once hypernatremia resolves Kcal 1,872 Protein (gm) 117 Fluid (mL) 1,265 Goal #1 Meet at least 75% of energy and protein needs Anticipated Discharge Needs: unable to determine at this time Follow-Up By: 11/03/19 Additional Comments F/U for TF tolerance, Na lab
[2019-11-01] MEDS: CEFEPIME IV SCH (14:37)
[2019-11-01] MEDS: SODIUM CHLORIDE 0.9% IV SCH (14:37)
[2019-11-01] MEDS: MORPHINE 2 MG/1 ML INJ IV PRN (17:02)
[2019-11-02] MEDS: MORPHINE 2 MG/1 ML INJ IV PRN (01:11)
[2019-11-02] MEDS: HEPARIN 5,000 UNIT/1 ML VIAL SUB-Q SCH ×3 (06:14→23:15)
[2019-11-02] MEDS: IPRATROPIUM/ALBUTEROL SULFATE 3 ML AMPUL.NEB IH SCH ×3 (08:04→20:31)
[2019-11-02] MEDS: ACETAMINOPHEN 325 MG/10.15 ML ORAL LIQD UNIT DOSE PO PRN (08:46)
[2019-11-02] MEDS: TAMSULOSIN 0.4 MG CAP PO SCH (09:57)
[2019-11-02] MEDS: LANSOPRAZOLE 30 MG SOLUTAB FEEDTUBE SCH (09:57)
--- NOTE | 2019-11-02 11:37 | Progress Note ---
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 Functional quadriplegia h/o HTN - lasix 20 mg I.V. q12h X 2 doses and re-evalaute re: Pulm edema pattern on CXR - continue prn maalox - Advance diet per [employer] team - cardiac enzymes unremarkable - 12 lead EKG reviewed; non-specific ST-T wave changes noted - cardiology evaluation for CHF - follow Baeza-cultures (Trend fevers with symptom management/cooling measures) - s/p completed anti-viral therapy, on antibiotics per ID service - continue Free water flushes and hypotonic solution for hypernatremia -Continue with sedation, with daily SAT (Titrate sedation to RASS 0 to -1) -Continue mobility protocol, off loading for pressure ulcer prevention- high risk patient - Specialty bed requested earlier - continue Aspiration precautions, HOB>40 degrees - Wean FIO2 for O2 sats 88-90% - Bronchodilators with pulmonary hygiene per RT & per protocol - Continue airborne isolation - Continue with VTE prophylaxis - Continue stress ulcer prophylaxis - Continue with Accuchecks with glycemic control for SSI (While critically ill target blood glucose of 140-180 mg/dL; avoid hypoglycemia) - Continue to monitor hemodynamics closely - Continue to monitor electrolyte profile closely and replete as indicated - Chronic home medications, resume as clinically indicated - PT/OT - Weight loss and life style modifications on discharge. May need surgical bariatric intervention (discussed this with her and her sister- patient currently does not have health insurance but has applied) - Out patient evaluation for sleep apnea ... transfer to telemetry ok CONDITION: STABLE PROGNOSIS: IMPROVED CODE STATUS: FULL CODE Subjective Date of service: 11/02/19 Principal diagnosis: Ac. hypoxic-hypercapnic resp failure; Influenza; extreme obesity; ? DEAN Interval history: Patient is seen today for: Acute hypoxic-hypercapnic respiratory failure; inf luenza infection; extreme obesity; probable DEAN Seen and examined at bedside; 24hour events reviewed; nursing and respiratory care staff consulted; no adverse overnight events reported to me; resting peacefully in bed; extubated yesterday and doing well; No N/V/F/C; remains hypoxemic and still with LONGORIA; Objective Vital Signs - 12hr 11/02/19 11/02/19 11/02/19 00:00 00:01 00:31 Temperature 99.9 F H Pulse Rate 116 H 115 H 116 H Pulse Rate [ 117 H From Monitor] Respiratory 21 21 23 Rate Blood Pressure 155/78 155/78 129/85 O2 Sat by Pulse 93 97 93 Oximetry 11/02/19 11/02/19 11/02/19 01:00 01:30 01:45 Temperature Pulse Rate 114 H 121 H 113 H Pulse Rate [ From Monitor] Respiratory 39 H 23 25 H Rate Blood Pressure 130/84 142/79 142/79 O2 Sat by Pulse 93 91 96 Oximetry 11/02/19 11/02/19 11/02/19 02:00 02:30 03:00 Temperature Pulse Rate 111 H 119 H 115 H Pulse Rate [ From Monitor] Respiratory 22 35 H 25 H Rate Blood Pressure 140/77 140/77 133/83 O2 Sat by Pulse 94 96 92 Oximetry 11/02/19 11/02/19 11/02/19 03:31 04:00 04:01 Temperature 99.9 F H Pulse Rate 109 H 118 H 113 H Pulse Rate [ 113 H From Monitor] Respiratory 14 24 24 Rate Blood Pressure 133/83 133/83 O2 Sat by Pulse 94 96 96 Oximetry 11/02/19 11/02/19 11/02/19 04:30 05:00 05:31 Temperature Pulse Rate 117 H 108 H 113 H Pulse Rate [ From Monitor] Respiratory 30 H 24 22 Rate Blood Pressure 150/72 129/64 116/83 O2 Sat by Pulse 85 92 94 Oximetry 11/02/19 11/02/19 11/02/19 06:01 06:30 07:00 Temperature Pulse Rate 113 H 112 H 111 H Pulse Rate [ From Monitor] Respiratory 22 26 H 17 Rate Blood Pressure 126/82 138/79 125/81 O2 Sat by Pulse 92 91 91 Oximetry 11/02/19 11/02/19 11/02/19 07:30 08:00 08:30 Temperature 100.8 F H Pulse Rate 116 H 111 H 113 H Pulse Rate [ 110 H From Monitor] Respiratory 20 23 27 H Rate Blood Pressure 112/90 120/84 129/79 O2 Sat by Pulse 95 93 88 Oximetry 11/02/19 11/02/19 11/02/19 09:00 09:30 10:00 Temperature Pulse Rate 139 H 119 H 126 H Pulse Rate [ From Monitor] Respiratory 30 H 29 H 29 H Rate Blood Pressure 129/79 130/75 130/64 O2 Sat by Pulse 91 Oximetry 11/02/19 11/02/19 10:30 11:00 Temperature Pulse Rate 133 H Pulse Rate [ From Monitor] Respiratory 16 Rate Blood Pressure 133/70 133/79 O2 Sat by Pulse Oximetry Constitutional: asleep (but rousable, opens eyes to verbal stimuli), appears uncomfortable, other (morbidly obese middle aged CF with mildly increased resp effort at rest) Eyes: non-icteric ENT: oropharynx moist Neck: supple, no lymphadenopathy, no JVD, other (short neck, large circumference) Effort: mildly labored Ascultation: Bilateral: diminished breath sounds, rhonchi Percussion: Bilateral: not dull Cardiovascular: regular rate and rhythm, other (S1,S2) Gastrointestinal: normoactive bowel sounds, soft, non-tender, non-distended Integumentary: normal Extremities: no cyanosis, no edema, pink and warm, pulses normal Neurologic: normal mental status, non-focal exam, pupils equal and round, CN II- XII normal, motor strength normal and Psychiatric: mood appropriate, affect normal CBC and BMP: 11/01/19 05:30 11/01/19 05:30 ABG, PT/INR, D-dimer: ABG POC ABG pH 7.465 (7.35-7.45) H 11/01/19 10:32 ABG pH 7.419 pH Units (7.350-7.450) 11/01/19 04:25 POC ABG pCO2 56.8 (35-45) H 11/01/19 10:32 ABG pCO2 60.3 mm Hg 11/01/19 04:25 ABG pO2 67.0 mm Hg (80.0-90.0) L 11/01/19 04:25 POC ABG HCO3 40.9 (22-26 mml/L) 11/01/19 10:32 POC ABG Total CO2 43 (23-27mmol/L) 11/01/19 10:32 POC ABG O2 Sat 81 11/01/19 10:32 ABG O2 Saturation 94.2 % (95.0-99.0) L 11/01/19 04:25 Abnormal lab findings: Abnormal Labs 10/17/19 10/17/19 10/17/19 20:57 20:57 Unknown WBC 4.0 L RBC Hgb Hct MCV 78 L MCH 25 L RDW 24.7 H Lymph % (Auto) [place] % (Auto) Lymph # Seg Neutrophils % Seg Neuts % (Manual) 77.0 H Monocytes % (Manual) 9.0 H Lymphocytes # (Manual) 0.6 L Monocytes # (Manual) POC ABG pH ABG pH POC ABG pCO2 POC ABG pO2 ABG pO2 ABG HCO3 ABG O2 Saturation ABG Base Excess ABG Hemoglobin Oxyhemoglobin Sodium Potassium 3.5 L Chloride Carbon Dioxide BUN Creatinine 0.6 L Glucose 147 H POC Glucose Calcium 7.9 L AST 57 H Total Creatine Kinase 857 H Albumin 3.0 L Triglycerides Influenza A (Rapid) Positive A 10/18/19 10/18/19 10/18/19 05:21 05:21 09:19 WBC 3.3 L RBC Hgb Hct MCV MCH 25 L RDW 24.3 H Lymph % (Auto) 12.5 L [place] % (Auto) 7.9 H Lymph # 0.4 L Seg Neutrophils % 78.6 H Seg Neuts % (Manual) Monocytes % (Manual) Lymphocytes # (Manual) Monocytes # (Manual) POC ABG pH ABG pH POC ABG pCO2 POC ABG pO2 ABG pO2 131.3 H ABG HCO3 30.2 H ABG O2 Saturation ABG Base Excess 4.5 H ABG Hemoglobin 10.7 L Oxyhemoglobin Sodium Potassium Chloride Carbon Dioxide BUN Creatinine Glucose 167 H POC Glucose Calcium 8.3 L AST Total Creatine Kinase Albumin Triglycerides Influenza A (Rapid) 10/18/19 10/18/19 10/19/19 11:28 18:27 06:39 WBC RBC Hgb Hct MCV MCH RDW Lymph % (Auto) [place] % (Auto) Lymph # Seg Neutrophils % Seg Neuts % (Manual) Monocytes % (Manual) Lymphocytes # (Manual) Monocytes # (Manual) POC ABG pH 7.461 H 7.487 H ABG pH POC ABG pCO2 53.4 H 52.8 H 51.7 H POC ABG pO2 70 L 71 L ABG pO2 ABG HCO3 ABG O2 Saturation ABG Base Excess ABG Hemoglobin Oxyhemoglobin Sodium Potassium Chloride Carbon Dioxide BUN Creatinine Glucose POC Glucose Calcium AST Total Creatine Kinase Albumin Triglycerides Influenza A (Rapid) 10/19/19 10/20/19 10/20/19 23:25 05:31 09:08 WBC RBC Hgb Hct MCV MCH RDW Lymph % (Auto) [place] % (Auto) Lymph # Seg Neutrophils % Seg Neuts % (Manual) Monocytes % (Manual) Lymphocytes # (Manual) Monocytes # (Manual) POC ABG pH ABG pH POC ABG pCO2 POC ABG pO2 ABG pO2 ABG HCO3 ABG O2 Saturation ABG Base Excess ABG Hemoglobin Oxyhemoglobin Sodium Potassium Chloride Carbon Dioxide BUN Creatinine Glucose POC Glucose 203 H 144 H 163 H Calcium AST Total Creatine Kinase Albumin Triglycerides Influenza A (Rapid) 10/20/19 10/20/19 10/20/19 10:25 13:22 14:51 WBC RBC Hgb Hct MCV MCH RDW Lymph % (Auto) [place] % (Auto) Lymph # Seg Neutrophils % Seg Neuts % (Manual) Monocytes % (Manual) Lymphocytes # (Manual) Monocytes # (Manual) POC ABG pH 7.632 H ABG pH POC ABG pCO2 POC ABG pO2 74 L ABG pO2 ABG HCO3 ABG O2 Saturation ABG Base Excess ABG Hemoglobin Oxyhemoglobin Sodium 147 H Potassium Chloride Carbon Dioxide 31 H BUN Creatinine 0.5 L Glucose 154 H POC Glucose 178 H Calcium 8.2 L AST Total Creatine Kinase Albumin Triglycerides Influenza A (Rapid) 10/20/19 10/20/19 10/20/19 14:51 17:16 21:30 WBC 11.2 H RBC Hgb Hct MCV 78 L MCH 25 L RDW 23.9 H Lymph % (Auto) [place] % (Auto) Lymph # Seg Neutrophils % Seg Neuts % (Manual) Monocytes % (Manual) Lymphocytes # (Manual) Monocytes # (Manual) POC ABG pH ABG pH POC ABG pCO2 POC ABG pO2 ABG pO2 ABG HCO3 ABG O2 Saturation ABG Base Excess ABG Hemoglobin Oxyhemoglobin Sodium Potassium Chloride Carbon Dioxide BUN Creatinine Glucose POC Glucose 143 H 152 H Calcium AST Total Creatine Kinase Albumin Triglycerides Influenza A (Rapid) 10/20/19 10/21/19 10/21/19 22:52 05:55 08:27 WBC RBC Hgb Hct MCV MCH RDW Lymph % (Auto) [place] % (Auto) Lymph # Seg Neutrophils % Seg Neuts % (Manual) Monocytes % (Manual) Lymphocytes # (Manual) Monocytes # (Manual) POC ABG pH ABG pH POC ABG pCO2 POC ABG pO2 ABG pO2 ABG HCO3 ABG O2 Saturation ABG Base Excess ABG Hemoglobin Oxyhemoglobin Sodium Potassium Chloride Carbon Dioxide BUN Creatinine Glucose POC Glucose 179 H 115 H 131 H Calcium AST Total Creatine Kinase Albumin Triglycerides Influenza A (Rapid) 10/21/19 10/21/19 10/21/19 11:52 16:23 23:38 WBC RBC Hgb Hct MCV MCH RDW Lymph % (Auto) [place] % (Auto) Lymph # Seg Neutrophils % Seg Neuts % (Manual) Monocytes % (Manual) Lymphocytes # (Manual) Monocytes # (Manual) POC ABG pH ABG pH POC ABG pCO2 POC ABG pO2 ABG pO2 ABG HCO3 ABG O2 Saturation ABG Base Excess ABG Hemoglobin Oxyhemoglobin Sodium Potassium Chloride Carbon Dioxide BUN Creatinine Glucose POC Glucose 122 H 120 H 115 H Calcium AST Total Creatine Kinase Albumin Triglycerides Influenza A (Rapid) 10/22/19 10/22/19 10/22/19 00:35 05:19 06:10 WBC RBC Hgb Hct MCV MCH 25 L RDW 22.8 H Lymph % (Auto) [place] % (Auto) Lymph # Seg Neutrophils % Seg Neuts % (Manual) Monocytes % (Manual) Lymphocytes # (Manual) Monocytes # (Manual) POC ABG pH ABG pH 7.520 H POC ABG pCO2 POC ABG pO2 ABG pO2 64.4 L ABG HCO3 36.8 H ABG O2 Saturation ABG Base Excess 12.6 H ABG Hemoglobin 10.4 L Oxyhemoglobin Sodium Potassium Chloride Carbon Dioxide BUN Creatinine Glucose POC Glucose 108 H Calcium AST Total Creatine Kinase Albumin Triglycerides Influenza A (Rapid) 10/22/19 10/24/19 10/25/19 15:40 05:49 04:20 WBC RBC Hgb Hct MCV MCH RDW Lymph % (Auto) [place] % (Auto) Lymph # Seg Neutrophils % Seg Neuts % (Manual) Monocytes % (Manual) Lymphocytes # (Manual) Monocytes # (Manual) POC ABG pH 7.454 H ABG pH POC ABG pCO2 64.1 H 63.5 H POC ABG pO2 73 L ABG pO2 ABG HCO3 ABG O2 Saturation ABG Base Excess ABG Hemoglobin Oxyhemoglobin Sodium 136 L D Potassium Chloride 97.6 L Carbon Dioxide BUN 19 H Creatinine Glucose 125 H POC Glucose Calcium AST Total Creatine Kinase Albumin Triglycerides Influenza A (Rapid) 10/25/19 10/25/19 10/26/19 05:35 05:35 04:19 WBC RBC Hgb 10.0 L Hct MCV MCH 25 L RDW 22.0 H Lymph % (Auto) [place] % (Auto) Lymph # Seg Neutrophils % Seg Neuts % (Manual) Monocytes % (Manual) Lymphocytes # (Manual) Monocytes # (Manual) POC ABG pH ABG pH POC ABG pCO2 66.1 H POC ABG pO2 75 L ABG pO2 ABG HCO3 ABG O2 Saturation ABG Base Excess ABG Hemoglobin Oxyhemoglobin Sodium 147 H D Potassium Chloride Carbon Dioxide 34 H D BUN 23 H Creatinine 0.5 L Glucose 184 H POC Glucose Calcium AST Total Creatine Kinase Albumin Triglycerides Influenza A (Rapid) 10/26/19 10/26/19 10/26/19 05:20 05:20 12:44 WBC RBC Hgb 9.5 L Hct MCV MCH 25 L RDW 22.3 H Lymph % (Auto) [place] % (Auto) Lymph # Seg Neutrophils % Seg Neuts % (Manual) Monocytes % (Manual) Lymphocytes # (Manual) Monocytes # (Manual) POC ABG pH 7.501 H ABG pH POC ABG pCO2 54.7 H POC ABG pO2 69 L ABG pO2 ABG HCO3 ABG O2 Saturation ABG Base Excess ABG Hemoglobin Oxyhemoglobin Sodium 152 H Potassium Chloride Carbon Dioxide 33 H BUN 27 H Creatinine 0.6 L Glucose 135 H POC Glucose Calcium AST Total Creatine Kinase Albumin Triglycerides Influenza A (Rapid) 10/27/19 10/27/19 10/27/19 03:30 05:40 05:40 WBC RBC 3.62 L Hgb 9.4 L Hct 29.1 L MCV MCH 26 L RDW 21.7 H Lymph % (Auto) [place] % (Auto) Lymph # Seg Neutrophils % Seg Neuts % (Manual) Monocytes % (Manual) Lymphocytes # (Manual) Monocytes # (Manual) POC ABG pH ABG pH 7.472 H POC ABG pCO2 POC ABG pO2 ABG pO2 ABG HCO3 38.2 H ABG O2 Saturation ABG Base Excess 13.3 H ABG Hemoglobin 6.5 L Oxyhemoglobin Sodium 149 H Potassium 3.3 L Chloride Carbon Dioxide 31 H BUN 25 H Creatinine 0.5 L Glucose 142 H POC Glucose Calcium 8.2 L AST Total Creatine Kinase Albumin Triglycerides Influenza A (Rapid) 10/27/19 10/28/19 10/28/19 05:40 05:19 05:56 WBC RBC Hgb Hct MCV MCH RDW Lymph % (Auto) [place] % (Auto) Lymph # Seg Neutrophils % Seg Neuts % (Manual) Monocytes % (Manual) Lymphocytes # (Manual) Monocytes # (Manual) POC ABG pH 7.489 H ABG pH POC ABG pCO2 51.0 H POC ABG pO2 71 L ABG pO2 ABG HCO3 ABG O2 Saturation ABG Base Excess ABG Hemoglobin Oxyhemoglobin Sodium 153 H Potassium Chloride Carbon Dioxide 31 H BUN Creatinine 0.4 L Glucose 111 H POC Glucose Calcium 8.1 L AST Total Creatine Kinase Albumin Triglycerides 279 H Influenza A (Rapid) 10/29/19 10/29/19 10/30/19 03:54 04:21 04:48 WBC RBC Hgb Hct MCV MCH RDW Lymph % (Auto) [place] % (Auto) Lymph # Seg Neutrophils % Seg Neuts % (Manual) Monocytes % (Manual) Lymphocytes # (Manual) Monocytes # (Manual) POC ABG pH 7.506 H 7.508 H ABG pH POC ABG pCO2 53.6 H 49.6 H POC ABG pO2 ABG pO2 ABG HCO3 ABG O2 Saturation ABG Base Excess ABG Hemoglobin Oxyhemoglobin Sodium 150 H Potassium Chloride Carbon Dioxide BUN Creatinine 0.4 L Glucose 137 H POC Glucose Calcium AST Total Creatine Kinase Albumin Triglycerides Influenza A (Rapid) 10/30/19 10/30/19 10/31/19 09:54 21:08 00:17 WBC RBC Hgb Hct MCV MCH RDW Lymph % (Auto) [place] % (Auto) Lymph # Seg Neutrophils % Seg Neuts % (Manual) Monocytes % (Manual) Lymphocytes # (Manual) Monocytes # (Manual) POC ABG pH 7.455 H ABG pH POC ABG pCO2 58.6 H POC ABG pO2 74 L ABG pO2 ABG HCO3 ABG O2 Saturation ABG Base Excess ABG Hemoglobin Oxyhemoglobin Sodium 148 H Potassium Chloride Carbon Dioxide BUN Creatinine 0.4 L Glucose 156 H POC Glucose 160 H Calcium AST Total Creatine Kinase Albumin Triglycerides Influenza A (Rapid) 10/31/19 10/31/19 10/31/19 04:42 08:02 16:24 WBC RBC Hgb Hct MCV MCH RDW Lymph % (Auto) [place] % (Auto) Lymph # Seg Neutrophils % Seg Neuts % (Manual) Monocytes % (Manual) Lymphocytes # (Manual) Monocytes # (Manual) POC ABG pH ABG pH POC ABG pCO2 62.2 H POC ABG pO2 76 L ABG pO2 ABG HCO3 ABG O2 Saturation ABG Base Excess ABG Hemoglobin Oxyhemoglobin Sodium 149 H Potassium Chloride Carbon Dioxide BUN Creatinine 0.4 L Glucose 146 H POC Glucose 143 H Calcium AST Total Creatine Kinase Albumin Triglycerides Influenza A (Rapid) 11/01/19 11/01/19 11/01/19 04:25 05:30 05:30 WBC RBC Hgb 9.7 L Hct 30.1 L MCV MCH 26 L RDW 21.6 H Lymph % (Auto) [place] % (Auto) Lymph # Seg Neutrophils % Seg Neuts % (Manual) Monocytes % (Manual) 10.0 H Lymphocytes # (Manual) Monocytes # (Manual) 0.9 H POC ABG pH ABG pH POC ABG pCO2 POC ABG pO2 ABG pO2 67.0 L ABG HCO3 38.2 H ABG O2 Saturation 94.2 L ABG Base Excess 11.8 H ABG Hemoglobin 10.7 L Oxyhemoglobin 91.6 L Sodium 147 H Potassium Chloride Carbon Dioxide 31 H BUN Creatinine 0.4 L Glucose 136 H POC Glucose Calcium AST Total Creatine Kinase Albumin Triglycerides Influenza A (Rapid) 11/01/19 10:32 WBC RBC Hgb Hct MCV MCH RDW Lymph % (Auto) [place] % (Auto) Lymph # Seg Neutrophils % Seg Neuts % (Manual) Monocytes % (Manual) Lymphocytes # (Manual) Monocytes # (Manual) POC ABG pH 7.465 H ABG pH POC ABG pCO2 56.8 H POC ABG pO2 ABG pO2 ABG HCO3 ABG O2 Saturation ABG Base Excess ABG Hemoglobin Oxyhemoglobin Sodium Potassium Chloride Carbon Dioxide BUN Creatinine Glucose POC Glucose Calcium AST Total Creatine Kinase Albumin Triglycerides Influenza A (Rapid) Allied health notes reviewed: RT
--- NOTE | 2019-11-02 11:56 | Progress Note ---
Assessment and Plan Assessment and plan: Acute hypoxemic respiratory failure. Respiratory/tracheal aspirate reveals Enterobacter. The patient failed BiPAP and required intubation on 10/23/2019. Patient extubated yesterday. Pulmonary following. Sepsis. Etiology secondary to pneumonia/influenza A. Continue antibiotics per ID. Follow-up cultures. Influenza A. Completed high dose prolonged Tamiflu course. Bilateral pneumonia. resp culture with GNR, patient on Cefepime. Acute on chronic diastolic heart failure. Echocardiogram revealed The left ventricular size is mildly dilated, mild to moderate concentric LVH, est EF 40- 45%, left atrium is mildly dilated, trace MR, mild TR, mild to moderate Pulmonary hypertension, RVSP is calculated at 42 mmHg. Obesity hypoventilation syndrome/DEAN. Outpatient evaluation for sleep apnea Morbid obesity. BMI is 94.3. Weight loss and life style modifications on discharge. May need surgical bariatric intervention Disposition. We will transfer to the floor. History Interval history: Patient is a 49 yo woman with a history of severe obesity BMI 93.6 (579 lbs), hypertension, lymphedema, functional quadriplegia and DEAN non compliant with CPAP who admitted to [facility] ED on 10/18/19 with Respiratory failure wtih pulse ox in the 50s. She was treated with BIPAP up until 10/23/2019 around 5pm when she was intubated by Anesthesia using guidescope. Trach aspirate growing GNR (still pending) and iv zosyn started then switched to Cefepime by ID. Hospitalist Physical - Constitutional Vitals: Temp Pulse Resp BP Pulse Ox 100.8 F H 133 H 16 133/79 91 11/02/19 08:00 11/02/19 11:00 11/02/19 11:00 11/02/19 11:11/02/19 09:30 General appearance: Present: obese, other (Intubated on mechanical ventilation). Absent: mild distress - EENT Eyes: Present: PERRL, EOM intact ENT: hearing intact, clear oral mucosa, dentition normal - Neck Neck: Present: supple, normal ROM - Respiratory Respiratory effort: normal Respiratory: bilateral: CTA - Cardiovascular Rhythm: regular Heart Sounds: Present: S1 & S2. Absent: gallop, rub - Extremities Extremities: no ischemia, No edema, Full ROM - Abdominal General gastrointestinal: soft, non-tender, non-distended, normal bowel sounds - Integumentary Integumentary: Present: clear, warm, dry - Neurologic Neurologic: CNII-XII intact, moves all extremities Results - Labs CBC & Chem 7: 11/01/19 05:30 11/01/19 05:30 Labs: Laboratory Last Values WBC 8.5 K/mm3 (4.5-11.0) 11/01/19 05:30 RBC 3.67 M/mm3 (3.65-5.03) 11/01/19 05:30 Hgb 9.7 gm/dl (10.1-14.3) L 11/01/19 05:30 Hct 30.1 % (30.3-42.9) L 11/01/19 05:30 MCV 82 fl (79-97) 11/01/19 05:30 MCH 26 pg (28-32) L 11/01/19 05:30 MCHC 32 % (30-34) 11/01/19 05:30 RDW 21.6 % (13.2-15.2) H 11/01/19 05:30 Plt Count 356 K/mm3 (140-440) 11/01/19 05:30 Lymph % (Auto) 12.5 % (13.4-35.0) L 10/18/19 05:21 [place] % (Auto) 7.9 % (0.0-7.3) H 10/18/19 05:21 Eos % (Auto) 0.0 % (0.0-4.3) 10/18/19 05:21 Baso % (Auto) 1.0 % (0.0-1.8) 10/18/19 05:21 Lymph # 0.4 K/mm3 (1.2-5.4) L 10/18/19 05:21 [place] # 0.3 K/mm3 (0.0-0.8) 10/18/19 05:21 Eos # 0.0 K/mm3 (0.0-0.4) 10/18/19 05:21 Baso # 0.0 K/mm3 (0.0-0.1) 10/18/19 05:21 Add Manual Diff Complete 11/01/19 05:30 Total Counted 100 11/01/19 05:30 Seg Neutrophils % 78.6 % (40.0-70.0) H 10/18/19 05:21 Seg Neuts % (Manual) 70.0 % (40.0-70.0) 11/01/19 05:30 Band Neutrophils % 1.0 % 11/01/19 05:30 Lymphocytes % (Manual) 17.0 % (13.4-35.0) 11/01/19 05:30 Reactive Lymphs % (Man) 0 % 11/01/19 05:30 Monocytes % (Manual) 10.0 % (0.0-7.3) H 11/01/19 05:30 Eosinophils % (Manual) 1.0 % (0.0-4.3) 11/01/19 05:30 Basophils % (Manual) 0 % (0.0-1.8) 11/01/19 05:30 Metamyelocytes % 1.0 % 11/01/19 05:30 Myelocytes % 0 % 11/01/19 05:30 Promyelocytes % 0 % 11/01/19 05:30 Blast Cells % 0 % 11/01/19 05:30 Nucleated RBC % Not Reportable 11/01/19 05:30 Seg Neutrophils # 2.6 K/mm3 (1.8-7.7) 10/18/19 05:21 Seg Neutrophils # Man 6.0 K/mm3 (1.8-7.7) 11/01/19 05:30 Band Neutrophils # 0.1 K/mm3 11/01/19 05:30 Lymphocytes # (Manual) 1.4 K/mm3 (1.2-5.4) 11/01/19 05:30 Abs React Lymphs (Man) 0.0 K/mm3 11/01/19 05:30 Monocytes # (Manual) 0.9 K/mm3 (0.0-0.8) H 11/01/19 05:30 Eosinophils # (Manual) 0.1 K/mm3 (0.0-0.4) 11/01/19 05:30 Basophils # (Manual) 0.0 K/mm3 (0.0-0.1) 11/01/19 05:30 Metamyelocytes # 0.1 K/mm3 11/01/19 05:30 Myelocytes # 0.0 K/mm3 11/01/19 05:30 Promyelocytes # 0.0 K/mm3 11/01/19 05:30 Blast Cells # 0.0 K/mm3 11/01/19 05:30 WBC Morphology Not Reportable 11/01/19 05:30 Hypersegmented Neuts Not Reportable 11/01/19 05:30 Hyposegmented Neuts Not Reportable 11/01/19 05:30 Hypogranular Neuts Not Reportable 11/01/19 05:30 Smudge Cells Not Reportable 11/01/19 05:30 Toxic Granulation Not Reportable 11/01/19 05:30 Toxic Vacuolation Not Reportable 11/01/19 05:30 Dohle Bodies Not Reportable 11/01/19 05:30 Pelger-Huet Anomaly Not Reportable 11/01/19 05:30 Krista Rods Not Reportable 11/01/19 05:30 Platelet Estimate Consistent w auto 11/01/19 05:30 Clumped Platelets Not Reportable 11/01/19 05:30 Plt Clumps, EDTA Not Reportable 11/01/19 05:30 Large Platelets Not Reportable 11/01/19 05:30 Giant Platelets Not Reportable 11/01/19 05:30 Platelet Satelliting Not Reportable 11/01/19 05:30 Plt Morphology Comment Not Reportable 11/01/19 05:30 RBC Morphology Not Reportable 11/01/19 05:30 Dimorphic RBCs Not Reportable 11/01/19 05:30 Polychromasia Rare 11/01/19 05:30 Hypochromasia Not Reportable 11/01/19 05:30 Poikilocytosis Not Reportable 11/01/19 05:30 Anisocytosis 1+ 11/01/19 05:30 Microcytosis Not Reportable 11/01/19 05:30 Macrocytosis Not Reportable 11/01/19 05:30 Spherocytes Not Reportable 11/01/19 05:30 Pappenheimer Bodies Not Reportable 11/01/19 05:30 Sickle Cells Not Reportable 11/01/19 05:30 Target Cells Not Reportable 11/01/19 05:30 Tear Drop Cells Not Reportable 11/01/19 05:30 Ovalocytes Not Reportable 11/01/19 05:30 Stomatocytes 2+ 11/01/19 05:30 Helmet Cells Not Reportable 11/01/19 05:30 Gallagher-[place] Bodies Not Reportable 11/01/19 05:30 [place] Rings Not Reportable 11/01/19 05:30 [place] Cells Not Reportable 11/01/19 05:30 Bite Cells Not Reportable 11/01/19 05:30 Crenated Cell Not Reportable 11/01/19 05:30 Elliptocytes Not Reportable 11/01/19 05:30 Acanthocytes (Spur) Not Reportable 11/01/19 05:30 Rouleaux Not Reportable 11/01/19 05:30 Hemoglobin C Crystals Not Reportable 11/01/19 05:30 Schistocytes Not Reportable 11/01/19 05:30 Malaria parasites Not Reportable 11/01/19 05:30 Alejandro Bodies Not Reportable 11/01/19 05:30 Hem Pathologist Commnt No 11/01/19 05:30 POC ABG pH 7.465 (7.35-7.45) H 11/01/19 10:32 ABG pH 7.419 pH Units (7.350-7.450) 11/01/19 04:25 POC ABG pCO2 56.8 (35-45) H 11/01/19 10:32 ABG pCO2 60.3 mm Hg 11/01/19 04:25 POC ABG pO2 76 (80-105) L 10/31/19 04:42 ABG pO2 67.0 mm Hg (80.0-90.0) L 11/01/19 04:25 POC ABG HCO3 40.9 (22-26 mml/L) 11/01/19 10:32 ABG HCO3 38.2 mmol/L (20.0-26.0) H 11/01/19 04:25 POC ABG Total CO2 43 (23-27mmol/L) 11/01/19 10:32 POC ABG O2 Sat 81 11/01/19 10:32 ABG O2 Saturation 94.2 % (95.0-99.0) L 11/01/19 04:25 ABG O2 Content 13.8 (0.0-44) 11/01/19 04:25 POC ABG Base Excess 17 ((-2) - (+3)mmol/L) 11/01/19 10:32 ABG Base Excess 11.8 mmol/L (-2.0-3.0) H 11/01/19 04:25 ABG Hemoglobin 10.7 gm/dl (12.0-16.0) L 11/01/19 04:25 ABG Carboxyhemoglobin 2.3 % (0.0-5.0) 11/01/19 04:25 ABG Methemoglobin 0.5 % (0.0-1.5) 11/01/19 04:25 Oxyhemoglobin 91.6 % (95.0-99.0) L 11/01/19 04:25 FiO2 35 % 11/01/19 10:32 Sodium 147 mmol/L (137-145) H 11/01/19 05:30 Potassium 3.7 mmol/L (3.6-5.0) 11/01/19 05:30 Chloride 102.3 mmol/L (98-107) 11/01/19 05:30 Carbon Dioxide 31 mmol/L (22-30) H 11/01/19 05:30 Anion Gap 17 mmol/L 11/01/19 05:30 BUN 17 mg/dL (7-17) 11/01/19 05:30 Creatinine 0.4 mg/dL (0.7-1.2) L 11/01/19 05:30 Estimated GFR > 60 ml/min 11/01/19 05:30 BUN/Creatinine Ratio 43 % 11/01/19 05:30 Glucose 136 mg/dL (65-100) H 11/01/19 05:30 POC Glucose 143 (70-105) H 10/31/19 16:24 Calcium 8.8 mg/dL (8.4-10.2) 11/01/19 05:30 Total Bilirubin 0.20 mg/dL (0.1-1.2) 10/17/19 20:57 AST 57 units/L (5-40) H 10/17/19 20:57 ALT 22 units/L (7-56) 10/17/19 20:57 Alkaline Phosphatase 67 units/L (35-129) 10/17/19 20:57 Total Creatine Kinase 72 units/L (30-135) 10/30/19 09:54 CK-MB (CK-2) < 1.0 ng/mL (0.0-4.0) 10/30/19 09:54 CK-MB (CK-2) Rel Index 1.3 (0-4) 10/30/19 09:54 Troponin T < 0.010 ng/mL (0.00-0.029) 10/30/19 09:54 NT-Pro-B Natriuret Pep 317.6 pg/mL (0-450) 10/17/19 20:57 Total Protein 7.1 g/dL (6.3-8.2) 10/17/19 20:57 Albumin 3.0 g/dL (3.9-5) L 10/17/19 20:57 Albumin/Globulin Ratio 0.7 % 10/17/19 20:57 Triglycerides 279 mg/dL (2-149) H 10/27/19 05:40 Procalcitonin 0.06 ng/mL (<0.15) 10/20/19 14:51 Influenza A (Rapid) Positive (Negative) A 10/17/19 Unknown Influenza B (Rapid) Negative (Negative) 10/17/19 Unknown Active Medications - Current Medications Current Medications: Generic Name Dose Route Start Last Admin Trade Name Freq PRN Reason Stop Dose Admin Acetaminophen 650 mg 10/27/19 08:38 11/02/19 08:46 Tylenol PO 650 mg Q4H PRN Administration Non Cardiac Pain or Temp>100.5 Albuterol 2.5 mg 10/17/19 22:47 10/19/19 14:34 Proventil IH 2.5 mg Q3HRT PRN Administration Shortness Of Breath Albuterol/Ipratropium 1 ampul 10/19/19 20:00 11/02/19 08:04 Duoneb *Not For Prn Use* IH 1 ampul TIDRT EDI Administration Fentanyl 50 mcg 10/23/19 17:29 Sublimaze IV Q10MIN PRN ANALGESIA Heparin Sodium (Porcine) 5,000 unit 10/18/19 06:00 11/02/19 06:14 Heparin SUB-Q 5,000 unit Q8HR EDI Administration Hydrophilic Ointment 1 applic 10/23/19 17:29 10/27/19 00:29 Vaseline Lip Therapy TP 1 applic Q2HR PRN Administration Dry Lips Fentanyl Citrate 2,000 mcg in 100 mls @ 13.25 mls/hr 10/23/19 18:00 11/01/19 07:30 Fentanyl Drip Premix IV 0 mcg/kg/hr TITR EDI 0 mls/hr Titration Protocol 1 MCG/KG/HR Propofol 1,000 mg in 100 mls @ 7.95 mls/hr 10/23/19 18:00 10/28/19 18:39 Diprivan 10 Mg/Ml IV Infused TITR EDI Titration Protocol 5 MCG/KG/MIN Cefepime HCl 6 gm/ Sodium 250 mls @ 10.417 mls/hr 10/31/19 14:00 11/01/19 14:37 Chloride IV 10.417 mls/hr Q24H EDI Administration Labetalol HCl 10 mg 10/24/19 14:32 Labetalol IV Q4H PRN Blood Pressure Lansoprazole 30 mg 10/30/19 11:00 11/02/19 09:57 Prevacid Solutab FEEDTUBE 30 mg BID EDI Administration Magnesium Hydroxide 30 ml 10/30/19 10:04 10/30/19 10:48 Milk Of Magnesia PO 30 ml Q4H PRN Administration INDIGESTION Morphine Sulfate 2 mg 10/17/19 22:47 11/02/19 01:11 Morphine IV 2 mg Q4H PRN Administration Pain, Moderate (4-6) Multi-Ingred Cream/Lotion/Oil/Oint 1 applic 10/23/19 17:29 Artificial Tears Ophth Oint OU Q4HR PRN Dry Eye(s) Ondansetron HCl 4 mg 10/17/19 22:47 10/29/19 02:45 Zofran IV 4 mg Q8H PRN Administration Nausea And Vomiting Sodium Chloride 10 ml 10/18/19 10:00 11/02/19 09:58 Sodium Chloride Flush Syringe 10 Ml IV 10 ml BID EDI Administration Sodium Chloride 10 ml 10/17/19 22:47 Sodium Chloride Flush Syringe 10 Ml IV PRN PRN LINE FLUSH Tamsulosin HCl 0.4 mg 10/30/19 11:00 11/02/19 09:57 Flomax PO 0.4 mg QDAY EDI Administration Nutrition/Malnutrition Assess - Dietary Evaluation Nutrition/Malnutrition Findings: Nutrition Notes Start: 10/19/19 13:20 Freq: Status: Active Protocol: Document 10/30/19 10:32 KS (Rec: 10/30/19 10:45 KS [id number]) Co-Sign 10/30/19 10:32 LP Nutrition Notes Initial or Follow up Reassessment Current Diagnosis Hypertension,Respiratory Failure Other Pertinent Diagnosis Influlenza A pneumonia, lymphedema, pulmonary edema, SOB, DVT Current Diet Vital AF 1.2 at 65 ml/hr Labs/Tests Na 148 Cr 0.4 BG 156 Pertinent Medications Reviewed Height 5 ft 6 in Weight 236.8 kg [place] Body Weight (kg) 59.09 BMI 84.2 Subjective/Other Information Vital AF 1.2 observed running at 65mL/hr (goal rate) at time of visit. Per RN, pt is tolerating TF. Pt is receiving free water flush of 250mL q4h for hypernatremia. Percent of energy/protein needs met: 99%/79% Burn Absent Trauma Absent Current % PO Negligible Minimum of two criteria No #2 Nutrition Diagnosis Inadequate oral intake Diagnosis Progress(for reassessment Continues documentation) Is patient on ventilator? Yes Is Patient Ambulatory and/or Out of Bed No REE-([facility]-confined to bed) 3619.464 Kcal/Kg value to use for calculation 8 Approximate Energy Requirements Using 1894 kcal/Kg Calculation Used for Recommendations Kcal/kg Additional Notes Protein needs: 148g (up to 2. 5g/kg IBW 59 kg) Fluid: 1 ml/kcal Nutrition Intervention Change Diet Order: TF Nutrition Support: Vital AF 1.2 at 65 ml/hr Flush 250 ml q4h for hypernatremia Flush 100 ml q4h once hypernatremia resolves Kcal 1,872 Protein (gm) 117 Fluid (mL) 1,265 Goal #1 Meet at least 75% of energy and protein needs Anticipated Discharge Needs: unable to determine at this time Follow-Up By: 11/03/19 Additional Comments F/U for TF tolerance, Na lab
[2019-11-02] MEDS: SODIUM CHLORIDE 0.9% IV SCH (14:14)
[2019-11-02] MEDS: CEFEPIME IV SCH (14:14)
[2019-11-02] MEDS: FUROSEMIDE 20 MG/2 ML INJ IV SCH (14:15)
--- NOTE | 2019-11-02 14:28 | Progress Note ---
Assessment and Plan Cultures: 10/17/2019 blood culture: No growth 10/17/2019 influenza A: Positive 10/23/2019 Resp culture: E cloacae 10/25/2019 tracheal aspirate: E cloacae 10/25/2019 blood culture: no growth thus far A/P: 49-year-old female with morbid obesity, hypertension, lymphedema, functional quadriplegia and sleep apnea admitted with: #Influenza A with acute respiratory failure: completed high dose prolonged Tamiflu course. Intubated, on mechanical ventilation. #Superimposed pneumonia: resp culture with E cloacae, patient on Cefepime. Isolate is S to cefepime #Extreme morbid obesity: BMI is 94.3. ?Cefepime 2 gm q8 hrs may not be adequate, but higher doses could increase risk of seizures. Recs: Continue 6g daily cefepime as continuous infusion due to obesity Thank you for the consult, will follow. Alvaro Jade MD [facility], [place], [facility] ([facility]) M: [phone] O: [phone] F: [phone] Subjective Date of service: 11/02/19 Principal diagnosis: Ac. hypoxic-hypercapnic resp failure; Influenza; extreme obesity; ? DEAN Interval history: Febrile to 100.8. Normal white count. Objective - Exam Narrative Exam: Physical Exam: Exam limited due to size. Constitutional: intubated, sedated, morbidly obese Head, Ears, Nose: Normocephalic, atraumatic. External ears, nose normal Eyes: Conjunctivae/corneas clear. No icterus. No ptosis. Neck: Intubated Oral: Intubated Cardiovascular: S1, S2 normal. Respiratory: Good air entry, clear to auscultation bilaterally, distant breath sounds. GI: Soft, non-tender; bowel sounds normal. No peritoneal signs. Musculoskeletal: No pedal edema, no cyanosis. Skin: No rash or abscess Hem/Lymphatic: No palpable cervical or supraclavicular nodes. No lymphangitis Psych: Mood ok. Affect normal Neurological: Intubated, sedated - Constitutional Vitals: Vital Signs Temp Pulse Resp BP Pulse Ox 100.8 F H 114 H 19 142/79 97 11/02/19 08:00 11/02/19 14:00 11/02/19 14:00 11/02/19 14:00 11/02/19 14:00 Temperature -Last 24 Hours Temperature 100.8 F Temperature 99.9 F Temperature 99.9 F Temperature 99.0 F Temperature 98.9 F - Labs CBC & Chem 7: 11/01/19 05:30 11/01/19 05:30
[2019-11-02] MEDS ORDERED: dilTIAZem CD 120 MG CAP PO ONE (16:00)
--- NOTE | 2019-11-02 18:31 | Event Note ---
Date: 11/02/19 Pt seen and evaluated by me for low oxygen saturation. Pt states that she "does not want any oxygen, and dont want anybody touching me." Pt daughter is at bedside. Pt is alert and oriented x3 with good insight. Patient states that she wants to speak to her mother. Patient daughter provided her with a telephone so that she can call her mother and talk about her wishes. Patient is of sound mind and body and is able to make her needs known and declines supplemental oxygen at this time as well as noninvasive positive pressure ventilation. P atient informed that continued lack of submental oxygen may result in respiratory decompensation and possibly . Patient acknowledges understanding instructions and continues to decline respiratory support at this time. Patient daughter is at bedside. The patient expressed the same sentiments to her daughter and became verbally aggressive with her daughter when the daughter suggested that she comply with therapy. Patient continues to decline respiratory support at this time.
--- NOTE | 2019-11-03 00:44 | Event Note ---
code MEt Called to see patient because she was not responding Patient has been on BiPAP, status post extubation Patient is awake, responsive to sternal rub He took the BiPAP off, she was oriented, talking and making sense ABG was done, gas was reviewed Continue BiPAP cc 35"
[2019-11-03] MEDS: FUROSEMIDE 20 MG/2 ML INJ IV SCH (01:34)
[2019-11-03] MEDS: HEPARIN 5,000 UNIT/1 ML VIAL SUB-Q SCH ×3 (06:13→23:51)
[2019-11-03] MEDS: IPRATROPIUM/ALBUTEROL SULFATE 3 ML AMPUL.NEB IH SCH ×3 (08:13→20:56)
--- NOTE | 2019-11-03 09:15 | Progress Note ---
<KEESHA PERRY - Last Filed: 11/03/19 10:55> Assessment and Plan Pneumonia Acute respiratory failure Influenza A infection Severe morbid obesity An echocardiogram this admission reports mild decreased left ventricular systolic function, ejection fraction 40-45%. Medical therapy for mild dilated cardiomyopathy including diuretics and beta blockers. Subjective Date of service: 11/03/19 Principal diagnosis: Ac. hypoxic-hypercapnic resp failure; Influenza; extreme obesity; ? DEAN Interval history: Cardiology recalled for CHF evaluation. A repeat chest x-ray done 10/22 reports persistent bilateral pulmonary opacities. Objective Vital Signs Temp Pulse Pulse Pulse Pulse Resp Resp 11/03/19 08:11 18 11/03/19 06:44 11/03/19 06:26 98.6 F 109 H 18 11/03/19 00:00 117 H 116 H 22 11/02/19 22:00 11/02/19 20:40 84 28 H 11/02/19 20:37 11/02/19 20:32 108 H 109 H 22 11/02/19 17:20 122 H 24 11/02/19 17:05 11/02/19 14:30 105 H 29 H 11/02/19 14:00 114 H 19 11/02/19 13:51 115 H 24 11/02/19 13:41 116 H 22 11/02/19 13:31 116 H 19 11/02/19 13:21 121 H 25 H 11/02/19 13:11 116 H 29 H 11/02/19 13:00 117 H 25 H 11/02/19 12:51 115 H 26 H 11/02/19 12:41 126 H 22 11/02/19 12:30 117 H 30 H 11/02/19 12:21 122 H 26 H 11/02/19 12:11 119 H 29 H 11/02/19 12:00 98.8 F 115 H 115 H 22 11/02/19 11:53 133 H 17 11/02/19 11:41 132 H 23 11/02/19 11:31 125 H 25 H 11/02/19 11:21 125 H 26 H 11/02/19 11:00 133 H 16 11/02/19 10:30 11/02/19 10:00 126 H 29 H 11/02/19 09:30 119 H 29 H Resp BP BP Pulse Ox 11/03/19 08:11 11/03/19 06:44 93 11/03/19 06:26 154/84 98 11/03/19 00:00 96 11/02/19 22:00 162/82 11/02/19 20:40 90 11/02/19 20:37 97 11/02/19 20:32 20 11/02/19 17:20 11/02/19 17:05 98 11/02/19 14:30 157/104 96 11/02/19 14:00 142/79 97 11/02/19 13:51 150/81 97 11/02/19 13:41 150/81 97 11/02/19 13:31 150/81 97 11/02/19 13:21 138/80 95 11/02/19 13:11 138/80 95 11/02/19 13:00 138/80 91 11/02/19 12:51 128/73 96 11/02/19 12:41 128/73 66 L 11/02/19 12:30 145/73 94 11/02/19 12:21 127/79 88 11/02/19 12:11 127/79 93 11/02/19 12:00 127/79 95 11/02/19 11:53 128/73 11/02/19 11:41 128/73 11/02/19 11:31 128/73 11/02/19 11:21 133/79 11/02/19 11:00 133/79 11/02/19 10:30 133/70 11/02/19 10:00 130/64 11/02/19 09:30 130/75 91 - Physical Examination General: Other (morbidly obese) HEENT: Positive: PERRL Neck: Positive: trachea midline Cardiac: Positive: Reg Rate and Rhythm Neuro: Positive: Grossly Intact Abdomen: Positive: Soft Skin: Positive: Clear Extremities: Absent: edema - Allied health notes Allied health notes reviewed: RT <NATALIE MONTEZ - Last Filed: 11/04/19 10:28> Objective Vital Signs Temp Pulse Pulse Pulse Resp Resp Resp 11/04/19 04:58 97.8 F 16 11/04/19 02:10 78 22 11/03/19 22:00 78 20 11/03/19 20:44 116 H 18 11/03/19 20:41 11/03/19 16:51 98.7 F 115 H 18 11/03/19 14:55 106 H 104 H 18 18 11/03/19 11:50 11/03/19 10:30 BP Pulse Ox 11/04/19 04:58 140/85 11/04/19 02:10 91 11/03/19 22:00 98 11/03/19 20:44 11/03/19 20:41 94 11/03/19 16:51 137/79 93 11/03/19 14:55 11/03/19 11:50 93 11/03/19 10:30 91 - Labs and Meds Comprehensive Metabolic Panel 11/04/19 Range/Units 05:57 Sodium 148 H (137-145) mmol/L Potassium 3.1 L (3.6-5.0) mmol/L Chloride 101.4 (98-107) mmol/L Carbon Dioxide 34 H (22-30) mmol/L BUN 14 (7-17) mg/dL Creatinine 0.5 L (0.7-1.2) mg/dL Glucose 128 H (65-100) mg/dL Calcium 8.7 (8.4-10.2) mg/dL
[2019-11-03] MEDS: PANTOPRAZOLE 40 MG TAB PO SCH (09:27)
[2019-11-03] MEDS: TAMSULOSIN 0.4 MG CAP PO SCH (09:27)
[2019-11-03] MEDS ORDERED: dilTIAZem CD 120 MG CAP PO SCH (10:00)
--- NOTE | 2019-11-03 13:51 | Progress Note ---
Assessment and Plan Cultures: 10/17/2019 blood culture: No growth 10/17/2019 influenza A: Positive 10/23/2019 Resp culture: E cloacae 10/25/2019 tracheal aspirate: E cloacae 10/25/2019 blood culture: no growth thus far A/P: 49-year-old female with morbid obesity, hypertension, lymphedema, functional quadriplegia and sleep apnea admitted with: #Influenza A with acute respiratory failure: completed high dose prolonged Tamiflu course. Intubated, on mechanical ventilation. #Superimposed pneumonia: resp culture with E cloacae, patient on Cefepime. Isolate is S to cefepime #Extreme morbid obesity: BMI is 94.3. ?Cefepime 2 gm q8 hrs may not be adequate, but higher doses could increase risk of seizures. Recs: Continue 6g daily cefepime as continuous infusion due to obesity. Plan on 8 days of therapy from initiation of high dose cefepime When ready for discharge, please discharge with levofloxacin 750mg q24h Antibiotic stop date: 11/08/2019 Patient should follow up in our office within 2 weeks of discharge. Thank you for the consult, will follow. Alvaro Jade MD [facility] ([facility]) M: [phone] O: [phone] F: [phone] Subjective Date of service: 11/03/19 Principal diagnosis: Ac. hypoxic-hypercapnic resp failure; Influenza; extreme obesity; ? DEAN Interval history: Afebrile overnight with a normal white count. She had been declining O2 overnight and was combative. Had code met called. Objective - Exam Narrative Exam: Physical Exam: Exam limited due to size. Constitutional: On BiPaP, morbidly obese Head, Ears, Nose: Normocephalic, atraumatic. External ears, nose normal Eyes: Conjunctivae/corneas clear. No icterus. No ptosis. Cardiovascular: S1, S2 normal. Respiratory: Good air entry, clear to auscultation bilaterally, distant breath sounds. GI: Soft, non-tender; bowel sounds normal. No peritoneal signs. Musculoskeletal: No pedal edema, no cyanosis. Skin: No rash or abscess Hem/Lymphatic: No palpable cervical or supraclavicular nodes. No lymphangitis Psych: Mood ok. Affect normal Neurological: Normal, no acute defects - Constitutional Vitals: Vital Signs Temp Pulse Resp BP Pulse Ox 98.6 F 109 H 18 154/84 93 11/03/19 06:26 11/03/19 06:26 11/03/19 08:11 11/03/19 06:26 11/03/19 06:44 Temperature -Last 24 Hours Temperature 98.6 F - Labs CBC & Chem 7: 11/01/19 05:30 11/01/19 05:30 Labs: Abnormal lab results 11/02/19 11/02/19 Range/Units 22:46 23:02 POC ABG pH 7.522 H (7.35-7.45) POC ABG pCO2 50.0 H (35-45) POC ABG pO2 71 L (80-105) POC Glucose 126 H (70-105)
--- NOTE | 2019-11-03 15:23 | Progress Note ---
Assessment and Plan Assessment and plan: Acute hypoxemic respiratory failure. Respiratory/tracheal aspirate reveals Enterobacter. The patient failed BiPAP and required intubation on 10/23/2019. Patient now extubated. Pulmonary following. Sepsis. Etiology secondary to pneumonia/influenza A. Continue antibiotics per ID. Influenza A. Completed high dose prolonged Tamiflu course. Bilateral pneumonia. resp culture with GNR, patient on Cefepime. Acute on chronic diastolic heart failure. Echocardiogram revealed The left ventricular size is mildly dilated, mild to moderate concentric LVH, est EF 40- 45%, left atrium is mildly dilated, trace MR, mild TR, mild to moderate Pulmonary hypertension, RVSP is calculated at 42 mmHg. Obesity hypoventilation syndrome/DEAN. Outpatient evaluation for sleep apnea Morbid obesity. BMI is 83. Weight loss and life style modifications on discharge. May need surgical bariatric intervention Agitation on and off. calm today Will get CT head History Interval history: Agitated on and off shortness of breath gen weakness Hospitalist Physical - Physical exam Narrative exam: GEN: Not in acute distress, lying in bed, morbidly obese HEENT: Normocephalic, atraumatic, Neck: supple, No JVD Lungs: Clear to auscultation bilaterally, no wheeze, heart;S1 and S2 reg, no murmurs Abd:soft, non tender, non distended, normal bowel sounds Ext: No edema, no clubbing, no cyanosis Neuro: AAO X 3, no focal neurological signs, moves all ext - Constitutional Vitals: Temp Pulse Resp BP Pulse Ox 98.6 F 109 H 18 154/84 93 11/03/19 06:26 11/03/19 06:26 11/03/19 08:11 11/03/19 06:26 11/03/19 06:44 General appearance: Present: obese, other (Intubated on mechanical ventilation). Absent: mild distress Results - Labs CBC & Chem 7: 11/01/19 05:30 11/04/19 05:57 Labs: Laboratory Last Values WBC 8.5 K/mm3 (4.5-11.0) 11/01/19 05:30 RBC 3.67 M/mm3 (3.65-5.03) 11/01/19 05:30 Hgb 9.7 gm/dl (10.1-14.3) L 11/01/19 05:30 Hct 30.1 % (30.3-42.9) L 11/01/19 05:30 MCV 82 fl (79-97) 11/01/19 05:30 MCH 26 pg (28-32) L 11/01/19 05:30 MCHC 32 % (30-34) 11/01/19 05:30 RDW 21.6 % (13.2-15.2) H 11/01/19 05:30 Plt Count 356 K/mm3 (140-440) 11/01/19 05:30 Lymph % (Auto) 12.5 % (13.4-35.0) L 10/18/19 05:21 [place] % (Auto) 7.9 % (0.0-7.3) H 10/18/19 05:21 Eos % (Auto) 0.0 % (0.0-4.3) 10/18/19 05:21 Baso % (Auto) 1.0 % (0.0-1.8) 10/18/19 05:21 Lymph # 0.4 K/mm3 (1.2-5.4) L 10/18/19 05:21 [place] # 0.3 K/mm3 (0.0-0.8) 10/18/19 05:21 Eos # 0.0 K/mm3 (0.0-0.4) 10/18/19 05:21 Baso # 0.0 K/mm3 (0.0-0.1) 10/18/19 05:21 Add Manual Diff Complete 11/01/19 05:30 Total Counted 100 11/01/19 05:30 Seg Neutrophils % 78.6 % (40.0-70.0) H 10/18/19 05:21 Seg Neuts % (Manual) 70.0 % (40.0-70.0) 11/01/19 05:30 Band Neutrophils % 1.0 % 11/01/19 05:30 Lymphocytes % (Manual) 17.0 % (13.4-35.0) 11/01/19 05:30 Reactive Lymphs % (Man) 0 % 11/01/19 05:30 Monocytes % (Manual) 10.0 % (0.0-7.3) H 11/01/19 05:30 Eosinophils % (Manual) 1.0 % (0.0-4.3) 11/01/19 05:30 Basophils % (Manual) 0 % (0.0-1.8) 11/01/19 05:30 Metamyelocytes % 1.0 % 11/01/19 05:30 Myelocytes % 0 % 11/01/19 05:30 Promyelocytes % 0 % 11/01/19 05:30 Blast Cells % 0 % 11/01/19 05:30 Nucleated RBC % Not Reportable 11/01/19 05:30 Seg Neutrophils # 2.6 K/mm3 (1.8-7.7) 10/18/19 05:21 Seg Neutrophils # Man 6.0 K/mm3 (1.8-7.7) 11/01/19 05:30 Band Neutrophils # 0.1 K/mm3 11/01/19 05:30 Lymphocytes # (Manual) 1.4 K/mm3 (1.2-5.4) 11/01/19 05:30 Abs React Lymphs (Man) 0.0 K/mm3 11/01/19 05:30 Monocytes # (Manual) 0.9 K/mm3 (0.0-0.8) H 11/01/19 05:30 Eosinophils # (Manual) 0.1 K/mm3 (0.0-0.4) 11/01/19 05:30 Basophils # (Manual) 0.0 K/mm3 (0.0-0.1) 11/01/19 05:30 Metamyelocytes # 0.1 K/mm3 11/01/19 05:30 Myelocytes # 0.0 K/mm3 11/01/19 05:30 Promyelocytes # 0.0 K/mm3 11/01/19 05:30 Blast Cells # 0.0 K/mm3 11/01/19 05:30 WBC Morphology Not Reportable 11/01/19 05:30 Hypersegmented Neuts Not Reportable 11/01/19 05:30 Hyposegmented Neuts Not Reportable 11/01/19 05:30 Hypogranular Neuts Not Reportable 11/01/19 05:30 Smudge Cells Not Reportable 11/01/19 05:30 Toxic Granulation Not Reportable 11/01/19 05:30 Toxic Vacuolation Not Reportable 11/01/19 05:30 Dohle Bodies Not Reportable 11/01/19 05:30 Pelger-Huet Anomaly Not Reportable 11/01/19 05:30 Krista Rods Not Reportable 11/01/19 05:30 Platelet Estimate Consistent w auto 11/01/19 05:30 Clumped Platelets Not Reportable 11/01/19 05:30 Plt Clumps, EDTA Not Reportable 11/01/19 05:30 Large Platelets Not Reportable 11/01/19 05:30 Giant Platelets Not Reportable 11/01/19 05:30 Platelet Satelliting Not Reportable 11/01/19 05:30 Plt Morphology Comment Not Reportable 11/01/19 05:30 RBC Morphology Not Reportable 11/01/19 05:30 Dimorphic RBCs Not Reportable 11/01/19 05:30 Polychromasia Rare 11/01/19 05:30 Hypochromasia Not Reportable 11/01/19 05:30 Poikilocytosis Not Reportable 11/01/19 05:30 Anisocytosis 1+ 11/01/19 05:30 Microcytosis Not Reportable 11/01/19 05:30 Macrocytosis Not Reportable 11/01/19 05:30 Spherocytes Not Reportable 11/01/19 05:30 Pappenheimer Bodies Not Reportable 11/01/19 05:30 Sickle Cells Not Reportable 11/01/19 05:30 Target Cells Not Reportable 11/01/19 05:30 Tear Drop Cells Not Reportable 11/01/19 05:30 Ovalocytes Not Reportable 11/01/19 05:30 Stomatocytes 2+ 11/01/19 05:30 Helmet Cells Not Reportable 11/01/19 05:30 [place] Bodies Not Reportable 11/01/19 05:30 [place] Rings Not Reportable 11/01/19 05:30 James Cells Not Reportable 11/01/19 05:30 Bite Cells Not Reportable 11/01/19 05:30 Crenated Cell Not Reportable 11/01/19 05:30 Elliptocytes Not Reportable 11/01/19 05:30 Acanthocytes (Spur) Not Reportable 11/01/19 05:30 Rouleaux Not Reportable 11/01/19 05:30 Hemoglobin C Crystals Not Reportable 11/01/19 05:30 Schistocytes Not Reportable 11/01/19 05:30 Malaria parasites Not Reportable 11/01/19 05:30 Alejandro Bodies Not Reportable 11/01/19 05:30 Hem Pathologist Commnt No 11/01/19 05:30 POC ABG pH 7.522 (7.35-7.45) H 11/02/19 23:02 ABG pH 7.419 pH Units (7.350-7.450) 11/01/19 04:25 POC ABG pCO2 50.0 (35-45) H 11/02/19 23:02 ABG pCO2 60.3 mm Hg 11/01/19 04:25 POC ABG pO2 71 (80-105) L 11/02/19 23:02 ABG pO2 67.0 mm Hg (80.0-90.0) L 11/01/19 04:25 POC ABG HCO3 41.0 (22-26 mml/L) 11/02/19 23:02 ABG HCO3 38.2 mmol/L (20.0-26.0) H 11/01/19 04:25 POC ABG Total CO2 42 (23-27mmol/L) 11/02/19 23:02 POC ABG O2 Sat 95 11/02/19 23:02 ABG O2 Saturation 94.2 % (95.0-99.0) L 11/01/19 04:25 ABG O2 Content 13.8 (0.0-44) 11/01/19 04:25 POC ABG Base Excess 18 ((-2) - (+3)mmol/L) 11/02/19 23:02 ABG Base Excess 11.8 mmol/L (-2.0-3.0) H 11/01/19 04:25 ABG Hemoglobin 10.7 gm/dl (12.0-16.0) L 11/01/19 04:25 ABG Carboxyhemoglobin 2.3 % (0.0-5.0) 11/01/19 04:25 ABG Methemoglobin 0.5 % (0.0-1.5) 11/01/19 04:25 Oxyhemoglobin 91.6 % (95.0-99.0) L 11/01/19 04:25 FiO2 50 % 11/02/19 23:02 Sodium 147 mmol/L (137-145) H 11/01/19 05:30 Potassium 3.7 mmol/L (3.6-5.0) 11/01/19 05:30 Chloride 102.3 mmol/L (98-107) 11/01/19 05:30 Carbon Dioxide 31 mmol/L (22-30) H 11/01/19 05:30 Anion Gap 17 mmol/L 11/01/19 05:30 BUN 17 mg/dL (7-17) 11/01/19 05:30 Creatinine 0.4 mg/dL (0.7-1.2) L 11/01/19 05:30 Estimated GFR > 60 ml/min 11/01/19 05:30 BUN/Creatinine Ratio 43 % 11/01/19 05:30 Glucose 136 mg/dL (65-100) H 11/01/19 05:30 POC Glucose 126 (70-105) H 11/02/19 22:46 Calcium 8.8 mg/dL (8.4-10.2) 11/01/19 05:30 Total Bilirubin 0.20 mg/dL (0.1-1.2) 10/17/19 20:57 AST 57 units/L (5-40) H 10/17/19 20:57 ALT 22 units/L (7-56) 10/17/19 20:57 Alkaline Phosphatase 67 units/L (35-129) 10/17/19 20:57 Total Creatine Kinase 72 units/L (30-135) 10/30/19 09:54 CK-MB (CK-2) < 1.0 ng/mL (0.0-4.0) 10/30/19 09:54 CK-MB (CK-2) Rel Index 1.3 (0-4) 10/30/19 09:54 Troponin T < 0.010 ng/mL (0.00-0.029) 10/30/19 09:54 NT-Pro-B Natriuret Pep 317.6 pg/mL (0-450) 10/17/19 20:57 Total Protein 7.1 g/dL (6.3-8.2) 10/17/19 20:57 Albumin 3.0 g/dL (3.9-5) L 10/17/19 20:57 Albumin/Globulin Ratio 0.7 % 10/17/19 20:57 Triglycerides 279 mg/dL (2-149) H 10/27/19 05:40 Procalcitonin 0.06 ng/mL (<0.15) 10/20/19 14:51 Influenza A (Rapid) Positive (Negative) A 10/17/19 Unknown Influenza B (Rapid) Negative (Negative) 10/17/19 Unknown Active Medications - Current Medications Current Medications: Generic Name Dose Route Start Last Admin Trade Name Freq PRN Reason Stop Dose Admin Acetaminophen 650 mg 10/27/19 08:38 11/02/19 08:46 Tylenol PO 650 mg Q4H PRN Administration Non Cardiac Pain or Temp>100.5 Albuterol 2.5 mg 10/17/19 22:47 10/19/19 14:34 Proventil IH 2.5 mg Q3HRT PRN Administration Shortness Of Breath Albuterol/Ipratropium 1 ampul 10/19/19 20:00 11/03/19 14:36 Duoneb *Not For Prn Use* IH 1 ampul TIDRT EDI Administration Heparin Sodium (Porcine) 5,000 unit 10/18/19 06:00 11/03/19 14:10 Heparin SUB-Q 5,000 unit Q8HR EDI Administration Hydrophilic Ointment 1 applic 10/23/19 17:29 10/27/19 00:29 Vaseline Lip Therapy TP 1 applic Q2HR PRN Administration Dry Lips Cefepime HCl 6 gm/ Sodium 250 mls @ 10.417 mls/hr 10/31/19 14:00 11/02/19 14:14 Chloride IV 10.417 mls/hr Q24H EDI Administration Labetalol HCl 10 mg 10/24/19 14:32 Labetalol IV Q4H PRN Blood Pressure Magnesium Hydroxide 30 ml 10/30/19 10:04 10/30/19 10:48 Milk Of Magnesia PO 30 ml Q4H PRN Administration INDIGESTION Morphine Sulfate 2 mg 10/17/19 22:47 11/02/19 01:11 Morphine IV 2 mg Q4H PRN Administration Pain, Moderate (4-6) Multi-Ingred Cream/Lotion/Oil/Oint 1 applic 10/23/19 17:29 Artificial Tears Ophth Oint OU Q4HR PRN Dry Eye(s) Ondansetron HCl 4 mg 10/17/19 22:47 10/29/19 02:45 Zofran IV 4 mg Q8H PRN Administration Nausea And Vomiting Pantoprazole Sodium 40 mg 11/03/19 10:00 11/03/19 09:27 Protonix PO 40 mg DAILY EDI Administration Sodium Chloride 10 ml 10/18/19 10:00 11/03/19 09:30 Sodium Chloride Flush Syringe 10 Ml IV 10 ml BID EDI Administration Sodium Chloride 10 ml 10/17/19 22:47 Sodium Chloride Flush Syringe 10 Ml IV PRN PRN LINE FLUSH Tamsulosin HCl 0.4 mg 10/30/19 11:00 11/03/19 09:27 Flomax PO 0.4 mg QDAY EDI Administration Nutrition/Malnutrition Assess - Dietary Evaluation Nutrition/Malnutrition Findings: Nutrition Notes Start: 10/19/19 13:20 Freq: Status: Active Protocol: Document 11/03/19 09:39 CT (Rec: 11/03/19 10:00 CT [id number]) Co-Sign 11/03/19 09:39 LM Nutrition Notes Initial or Follow up Reassessment Current Diagnosis Hypertension,Respiratory Failure Other Pertinent Diagnosis Influlenza A pneumonia, lymphedema, pulmonary edema, SOB, DVT Current Diet Low Sodium Diet Labs/Tests Na 147 Cr 0.4 Glu 136 Pertinent Medications Reviewed Height 5 ft 6 in Weight 233.6 kg [place] Body Weight (kg) 59.09 BMI 83.1 Weight change and time frame Wt change noted. Possibly due to fluid. Subjective/Other Information Follow up for TF tolerance and Na labs. TF was d/c when patient was taken off the vent . FLIGHT DECK OFFICER recommended a regular diet. Pt has no issues swallowing. Pt ate 50% of breakfast and stated eating 1/ 3 of each meal the previous day. Pt states she has no appetite, "once she trusts the process, then her appetite will get better." Pt preferences were noted. Percent of energy/protein needs met: 42% energy / 26% protein Burn Absent Trauma Absent Current % PO Fair (50-74%) Minimum of two criteria No #2 Nutrition Diagnosis Inadequate oral intake As Evidenced by Signs and Symptoms Pt able to consume PO, but no appetite Diagnosis Progress(for reassessment Improved documentation) Is patient on ventilator? No Is Patient Ambulatory and/or Out of Bed No REE-([place]-confined to bed) 3581.100 Kcal/Kg value to use for calculation 8 Approximate Energy Requirements Using 1869 kcal/Kg Calculation Used for Recommendations Kcal/kg Additional Notes Protein needs: 117-146 g/kg/ day (0.8-1 g/kg/day AdBW 146 kg) Fluid: 1 ml/kcal Nutrition Intervention Change Diet Order: Cardiac Diet Goal #1 Meet at least 75% of energy and protein needs Anticipated Discharge Needs: Cardiac diet Follow-Up By: 11/05/19 Additional Comments Follow up for PO intakes
[2019-11-03] MEDS: SODIUM CHLORIDE 0.9% IV SCH (16:20)
[2019-11-03] MEDS: CEFEPIME IV SCH (16:20)
--- NOTE | 2019-11-03 18:50 | Progress Note ---
Assessment and Plan Patient 49yo female with history of HTN recently treated for pneumonia and influenza. Patient is awake and alert. Patient is currently on 4.5L via nasal canula with O2 saturation of 93%. BIPAP on standby in room. Patient is afebrile with no leukocytosis. Patient ABG 11/02/2019 pH 7.52/ pCO2 50/ pO2 71/ HCO3 41/ O2 Sat 95%/ FiO2 50% Chest X-ray Reported 11/01/2019 Diffuse bilateral pulmonary opacities persist unchanged. Small bilateral pleural effusions are stable. No pneumothorax. Stable appearance of the chest radiograph. Social History: Smoking, alcohol, & drug history is not known at this time. Patient unmarried and has one daughter - Patient Problems (1) Pleural effusion Current Visit: Yes Status: Acute Plan to address problem: small bilateral pleural effusions Follow with repeat chest xray (2) Acute and chronic respiratory failure with hypercapnia Current Visit: Yes Status: Acute Plan to address problem: 1. On 4L O2 via nasal canula 2. Albuterol/Atrovent aerosol treatments q6 PRN shortness of breath. 3. Brovanna and Budesonide aerosol treatments q12 4. Continue Cefepime 5. Continue SC Heparin 6. Continue Protonix (3) Morbid obesity Current Visit: Yes Status: Acute Plan to address problem: Recommend to lose weight Recommend sleep study as outpatient Subjective Date of service: 11/03/19 Principal diagnosis: Ac. hypoxic-hypercapnic resp failure; Influenza; extreme obesity; ? DEAN Interval history: Patient 49yo female with history of HTN recently treated for pneumonia and influenza. Patient is awake and alert. Patient is currently on 4.5L via nasal canula with O2 saturation of 93%. BIPAP on standby in room. Patient is afebrile with no leukocytosis. Patient ABG 11/02/2019 pH 7.52/ pCO2 50/ pO2 71/ HCO3 41/ O2 Sat 95%/ FiO2 50% Chest X-ray Reported 11/01/2019 Diffuse bilateral pulmonary opacities persist unchanged. Small bilateral pleural effusions are stable. No pneumothorax. Stable appearance of the chest radi ograph. Social History: Smoking, alcohol, & drug history is not known at this time. Patient unmarried and has one daughter Objective Vital Signs - 12hr 11/03/19 11/03/19 08:11 16:51 Temperature 98.7 F Pulse Rate 115 H Respiratory 18 18 Rate Blood Pressure 137/79 O2 Sat by Pulse 93 Oximetry Constitutional: no acute distress, alert, other (morbidly obese middle aged CF with mildly increased resp effort at rest) Eyes: non-icteric ENT: oropharynx moist Neck: supple, no lymphadenopathy, no JVD, other (short neck, large circumfe rence) Effort: mildly labored Ascultation: Bilateral: diminished breath sounds, rhonchi Percussion: Bilateral: not dull Cardiovascular: regular rate and rhythm, other (S1,S2) Gastrointestinal: normoactive bowel sounds, soft, non-tender, non-distended Integumentary: normal Extremities: no cyanosis, no edema, pink and warm, pulses normal Neurologic: normal mental status, non-focal exam, pupils equal and round, CN II- XII normal, motor strength normal and Psychiatric: mood appropriate, affect normal CBC and BMP: 11/01/19 05:30 11/01/19 05:30 ABG, PT/INR, D-dimer: ABG POC ABG pH 7.522 (7.35-7.45) H 11/02/19 23:02 ABG pH 7.419 pH Units (7.350-7.450) 11/01/19 04:25 POC ABG pCO2 50.0 (35-45) H 11/02/19 23:02 ABG pCO2 60.3 mm Hg 11/01/19 04:25 POC ABG pO2 71 (80-105) L 11/02/19 23:02 ABG pO2 67.0 mm Hg (80.0-90.0) L 11/01/19 04:25 POC ABG HCO3 41.0 (22-26 mml/L) 11/02/19 23:02 POC ABG Total CO2 42 (23-27mmol/L) 11/02/19 23:02 POC ABG O2 Sat 95 11/02/19 23:02 ABG O2 Saturation 94.2 % (95.0-99.0) L 11/01/19 04:25 Abnormal lab findings: Abnormal Labs 10/17/19 10/17/19 10/17/19 20:57 20:57 Unknown WBC 4.0 L RBC Hgb Hct MCV 78 L MCH 25 L RDW 24.7 H Lymph % (Auto) [place] % (Auto) Lymph # Seg Neutrophils % Seg Neuts % (Manual) 77.0 H Monocytes % (Manual) 9.0 H Lymphocytes # (Manual) 0.6 L Monocytes # (Manual) POC ABG pH ABG pH POC ABG pCO2 POC ABG pO2 ABG pO2 ABG HCO3 ABG O2 Saturation ABG Base Excess ABG Hemoglobin Oxyhemoglobin Sodium Potassium 3.5 L Chloride Carbon Dioxide BUN Creatinine 0.6 L Glucose 147 H POC Glucose Calcium 7.9 L AST 57 H Total Creatine Kinase 857 H Albumin 3.0 L Triglycerides Influenza A (Rapid) Positive A 10/18/19 10/18/19 10/18/19 05:21 05:21 09:19 WBC 3.3 L RBC Hgb Hct MCV MCH 25 L RDW 24.3 H Lymph % (Auto) 12.5 L [place] % (Auto) 7.9 H Lymph # 0.4 L Seg Neutrophils % 78.6 H Seg Neuts % (Manual) Monocytes % (Manual) Lymphocytes # (Manual) Monocytes # (Manual) POC ABG pH ABG pH POC ABG pCO2 POC ABG pO2 ABG pO2 131.3 H ABG HCO3 30.2 H ABG O2 Saturation ABG Base Excess 4.5 H ABG Hemoglobin 10.7 L Oxyhemoglobin Sodium Potassium Chloride Carbon Dioxide BUN Creatinine Glucose 167 H POC Glucose Calcium 8.3 L AST Total Creatine Kinase Albumin Triglycerides Influenza A (Rapid) 10/18/19 10/18/19 10/19/19 11:28 18:27 06:39 WBC RBC Hgb Hct MCV MCH RDW Lymph % (Auto) [place] % (Auto) Lymph # Seg Neutrophils % Seg Neuts % (Manual) Monocytes % (Manual) Lymphocytes # (Manual) Monocytes # (Manual) POC ABG pH 7.461 H 7.487 H ABG pH POC ABG pCO2 53.4 H 52.8 H 51.7 H POC ABG pO2 70 L 71 L ABG pO2 ABG HCO3 ABG O2 Saturation ABG Base Excess ABG Hemoglobin Oxyhemoglobin Sodium Potassium Chloride Carbon Dioxide BUN Creatinine Glucose POC Glucose Calcium AST Total Creatine Kinase Albumin Triglycerides Influenza A (Rapid) 10/19/19 10/20/19 10/20/19 23:25 05:31 09:08 WBC RBC Hgb Hct MCV MCH RDW Lymph % (Auto) [place] % (Auto) Lymph # Seg Neutrophils % Seg Neuts % (Manual) Monocytes % (Manual) Lymphocytes # (Manual) Monocytes # (Manual) POC ABG pH ABG pH POC ABG pCO2 POC ABG pO2 ABG pO2 ABG HCO3 ABG O2 Saturation ABG Base Excess ABG Hemoglobin Oxyhemoglobin Sodium Potassium Chloride Carbon Dioxide BUN Creatinine Glucose POC Glucose 203 H 144 H 163 H Calcium AST Total Creatine Kinase Albumin Triglycerides Influenza A (Rapid) 10/20/19 10/20/19 10/20/19 10:25 13:22 14:51 WBC RBC Hgb Hct MCV MCH RDW Lymph % (Auto) [place] % (Auto) Lymph # Seg Neutrophils % Seg Neuts % (Manual) Monocytes % (Manual) Lymphocytes # (Manual) Monocytes # (Manual) POC ABG pH 7.632 H ABG pH POC ABG pCO2 POC ABG pO2 74 L ABG pO2 ABG HCO3 ABG O2 Saturation ABG Base Excess ABG Hemoglobin Oxyhemoglobin Sodium 147 H Potassium Chloride Carbon Dioxide 31 H BUN Creatinine 0.5 L Glucose 154 H POC Glucose 178 H Calcium 8.2 L AST Total Creatine Kinase Albumin Triglycerides Influenza A (Rapid) 10/20/19 10/20/19 10/20/19 14:51 17:16 21:30 WBC 11.2 H RBC Hgb Hct MCV 78 L MCH 25 L RDW 23.9 H Lymph % (Auto) [place] % (Auto) Lymph # Seg Neutrophils % Seg Neuts % (Manual) Monocytes % (Manual) Lymphocytes # (Manual) Monocytes # (Manual) POC ABG pH ABG pH POC ABG pCO2 POC ABG pO2 ABG pO2 ABG HCO3 ABG O2 Saturation ABG Base Excess ABG Hemoglobin Oxyhemoglobin Sodium Potassium Chloride Carbon Dioxide BUN Creatinine Glucose POC Glucose 143 H 152 H Calcium AST Total Creatine Kinase Albumin Triglycerides Influenza A (Rapid) 10/20/19 10/21/19 10/21/19 22:52 05:55 08:27 WBC RBC Hgb Hct MCV MCH RDW Lymph % (Auto) [place] % (Auto) Lymph # Seg Neutrophils % Seg Neuts % (Manual) Monocytes % (Manual) Lymphocytes # (Manual) Monocytes # (Manual) POC ABG pH ABG pH POC ABG pCO2 POC ABG pO2 ABG pO2 ABG HCO3 ABG O2 Saturation ABG Base Excess ABG Hemoglobin Oxyhemoglobin Sodium Potassium Chloride Carbon Dioxide BUN Creatinine Glucose POC Glucose 179 H 115 H 131 H Calcium AST Total Creatine Kinase Albumin Triglycerides Influenza A (Rapid) 10/21/19 10/21/19 10/21/19 11:52 16:23 23:38 WBC RBC Hgb Hct MCV MCH RDW Lymph % (Auto) [place] % (Auto) Lymph # Seg Neutrophils % Seg Neuts % (Manual) Monocytes % (Manual) Lymphocytes # (Manual) Monocytes # (Manual) POC ABG pH ABG pH POC ABG pCO2 POC ABG pO2 ABG pO2 ABG HCO3 ABG O2 Saturation ABG Base Excess ABG Hemoglobin Oxyhemoglobin Sodium Potassium Chloride Carbon Dioxide BUN Creatinine Glucose POC Glucose 122 H 120 H 115 H Calcium AST Total Creatine Kinase Albumin Triglycerides Influenza A (Rapid) 10/22/19 10/22/19 10/22/19 00:35 05:19 06:10 WBC RBC Hgb Hct MCV MCH 25 L RDW 22.8 H Lymph % (Auto) [place] % (Auto) Lymph # Seg Neutrophils % Seg Neuts % (Manual) Monocytes % (Manual) Lymphocytes # (Manual) Monocytes # (Manual) POC ABG pH ABG pH 7.520 H POC ABG pCO2 POC ABG pO2 ABG pO2 64.4 L ABG HCO3 36.8 H ABG O2 Saturation ABG Base Excess 12.6 H ABG Hemoglobin 10.4 L Oxyhemoglobin Sodium Potassium Chloride Carbon Dioxide BUN Creatinine Glucose POC Glucose 108 H Calcium AST Total Creatine Kinase Albumin Triglycerides Influenza A (Rapid) 10/22/19 10/24/19 10/25/19 15:40 05:49 04:20 WBC RBC Hgb Hct MCV MCH RDW Lymph % (Auto) [place] % (Auto) Lymph # Seg Neutrophils % Seg Neuts % (Manual) Monocytes % (Manual) Lymphocytes # (Manual) Monocytes # (Manual) POC ABG pH 7.454 H ABG pH POC ABG pCO2 64.1 H 63.5 H POC ABG pO2 73 L ABG pO2 ABG HCO3 ABG O2 Saturation ABG Base Excess ABG Hemoglobin Oxyhemoglobin Sodium 136 L D Potassium Chloride 97.6 L Carbon Dioxide BUN 19 H Creatinine Glucose 125 H POC Glucose Calcium AST Total Creatine Kinase Albumin Triglycerides Influenza A (Rapid) 10/25/19 10/25/19 10/26/19 05:35 05:35 04:19 WBC RBC Hgb 10.0 L Hct MCV MCH 25 L RDW 22.0 H Lymph % (Auto) [place] % (Auto) Lymph # Seg Neutrophils % Seg Neuts % (Manual) Monocytes % (Manual) Lymphocytes # (Manual) Monocytes # (Manual) POC ABG pH ABG pH POC ABG pCO2 66.1 H POC ABG pO2 75 L ABG pO2 ABG HCO3 ABG O2 Saturation ABG Base Excess ABG Hemoglobin Oxyhemoglobin Sodium 147 H D Potassium Chloride Carbon Dioxide 34 H D BUN 23 H Creatinine 0.5 L Glucose 184 H POC Glucose Calcium AST Total Creatine Kinase Albumin Triglycerides Influenza A (Rapid) 10/26/19 10/26/19 10/26/19 05:20 05:20 12:44 WBC RBC Hgb 9.5 L Hct MCV MCH 25 L RDW 22.3 H Lymph % (Auto) [place] % (Auto) Lymph # Seg Neutrophils % Seg Neuts % (Manual) Monocytes % (Manual) Lymphocytes # (Manual) Monocytes # (Manual) POC ABG pH 7.501 H ABG pH POC ABG pCO2 54.7 H POC ABG pO2 69 L ABG pO2 ABG HCO3 ABG O2 Saturation ABG Base Excess ABG Hemoglobin Oxyhemoglobin Sodium 152 H Potassium Chloride Carbon Dioxide 33 H BUN 27 H Creatinine 0.6 L Glucose 135 H POC Glucose Calcium AST Total Creatine Kinase Albumin Triglycerides Influenza A (Rapid) 10/27/19 10/27/19 10/27/19 03:30 05:40 05:40 WBC RBC 3.62 L Hgb 9.4 L Hct 29.1 L MCV MCH 26 L RDW 21.7 H Lymph % (Auto) [place] % (Auto) Lymph # Seg Neutrophils % Seg Neuts % (Manual) Monocytes % (Manual) Lymphocytes # (Manual) Monocytes # (Manual) POC ABG pH ABG pH 7.472 H POC ABG pCO2 POC ABG pO2 ABG pO2 ABG HCO3 38.2 H ABG O2 Saturation ABG Base Excess 13.3 H ABG Hemoglobin 6.5 L Oxyhemoglobin Sodium 149 H Potassium 3.3 L Chloride Carbon Dioxide 31 H BUN 25 H Creatinine 0.5 L Glucose 142 H POC Glucose Calcium 8.2 L AST Total Creatine Kinase Albumin Triglycerides Influenza A (Rapid) 10/27/19 10/28/19 10/28/19 05:40 05:19 05:56 WBC RBC Hgb Hct MCV MCH RDW Lymph % (Auto) [place] % (Auto) Lymph # Seg Neutrophils % Seg Neuts % (Manual) Monocytes % (Manual) Lymphocytes # (Manual) Monocytes # (Manual) POC ABG pH 7.489 H ABG pH POC ABG pCO2 51.0 H POC ABG pO2 71 L ABG pO2 ABG HCO3 ABG O2 Saturation ABG Base Excess ABG Hemoglobin Oxyhemoglobin Sodium 153 H Potassium Chloride Carbon Dioxide 31 H BUN Creatinine 0.4 L Glucose 111 H POC Glucose Calcium 8.1 L AST Total Creatine Kinase Albumin Triglycerides 279 H Influenza A (Rapid) 10/29/19 10/29/19 10/30/19 03:54 04:21 04:48 WBC RBC Hgb Hct MCV MCH RDW Lymph % (Auto) [place] % (Auto) Lymph # Seg Neutrophils % Seg Neuts % (Manual) Monocytes % (Manual) Lymphocytes # (Manual) Monocytes # (Manual) POC ABG pH 7.506 H 7.508 H ABG pH POC ABG pCO2 53.6 H 49.6 H POC ABG pO2 ABG pO2 ABG HCO3 ABG O2 Saturation ABG Base Excess ABG Hemoglobin Oxyhemoglobin Sodium 150 H Potassium Chloride Carbon Dioxide BUN Creatinine 0.4 L Glucose 137 H POC Glucose Calcium AST Total Creatine Kinase Albumin Triglycerides Influenza A (Rapid) 10/30/19 10/30/19 10/31/19 09:54 21:08 00:17 WBC RBC Hgb Hct MCV MCH RDW Lymph % (Auto) [place] % (Auto) Lymph # Seg Neutrophils % Seg Neuts % (Manual) Monocytes % (Manual) Lymphocytes # (Manual) Monocytes # (Manual) POC ABG pH 7.455 H ABG pH POC ABG pCO2 58.6 H POC ABG pO2 74 L ABG pO2 ABG HCO3 ABG O2 Saturation ABG Base Excess ABG Hemoglobin Oxyhemoglobin Sodium 148 H Potassium Chloride Carbon Dioxide BUN Creatinine 0.4 L Glucose 156 H POC Glucose 160 H Calcium AST Total Creatine Kinase Albumin Triglycerides Influenza A (Rapid) 10/31/19 10/31/19 10/31/19 04:42 08:02 16:24 WBC RBC Hgb Hct MCV MCH RDW Lymph % (Auto) [place] % (Auto) Lymph # Seg Neutrophils % Seg Neuts % (Manual) Monocytes % (Manual) Lymphocytes # (Manual) Monocytes # (Manual) POC ABG pH ABG pH POC ABG pCO2 62.2 H POC ABG pO2 76 L ABG pO2 ABG HCO3 ABG O2 Saturation ABG Base Excess ABG Hemoglobin Oxyhemoglobin Sodium 149 H Potassium Chloride Carbon Dioxide BUN Creatinine 0.4 L Glucose 146 H POC Glucose 143 H Calcium AST Total Creatine Kinase Albumin Triglycerides Influenza A (Rapid) 11/01/19 11/01/19 11/01/19 04:25 05:30 05:30 WBC RBC Hgb 9.7 L Hct 30.1 L MCV MCH 26 L RDW 21.6 H Lymph % (Auto) [place] % (Auto) Lymph # Seg Neutrophils % Seg Neuts % (Manual) Monocytes % (Manual) 10.0 H Lymphocytes # (Manual) Monocytes # (Manual) 0.9 H POC ABG pH ABG pH POC ABG pCO2 POC ABG pO2 ABG pO2 67.0 L ABG HCO3 38.2 H ABG O2 Saturation 94.2 L ABG Base Excess 11.8 H ABG Hemoglobin 10.7 L Oxyhemoglobin 91.6 L Sodium 147 H Potassium Chloride Carbon Dioxide 31 H BUN Creatinine 0.4 L Glucose 136 H POC Glucose Calcium AST Total Creatine Kinase Albumin Triglycerides Influenza A (Rapid) 11/01/19 11/02/19 11/02/19 10:32 22:46 23:02 WBC RBC Hgb Hct MCV MCH RDW Lymph % (Auto) [place] % (Auto) Lymph # Seg Neutrophils % Seg Neuts % (Manual) Monocytes % (Manual) Lymphocytes # (Manual) Monocytes # (Manual) POC ABG pH 7.465 H 7.522 H ABG pH POC ABG pCO2 56.8 H 50.0 H POC ABG pO2 71 L ABG pO2 ABG HCO3 ABG O2 Saturation ABG Base Excess ABG Hemoglobin Oxyhemoglobin Sodium Potassium Chloride Carbon Dioxide BUN Creatinine Glucose POC Glucose 126 H Calcium AST Total Creatine Kinase Albumin Triglycerides Influenza A (Rapid) Chest x-ray: report reviewed (Diffuse bilateral pulmonary opacities persist unchanged. Small bilateral pleural effusions are stable. No pneumothorax. Stable appearance of the chest radiograph.), image reviewed Allied health notes reviewed: RT
[2019-11-04] MEDS: HEPARIN 5,000 UNIT/1 ML VIAL SUB-Q SCH ×3 (05:48→22:22)
[2019-11-04 06:32] LABS: BUN/Creatinine Ratio 28; Blood Urea Nitrogen 14 mg/dL (7-17); Calcium 8.7 mg/dL (8.4-10.2); Hemolysis Index 3
[2019-11-04] MEDS: IPRATROPIUM/ALBUTEROL SULFATE 3 ML AMPUL.NEB IH SCH ×3 (08:19→20:06)
[2019-11-04] MEDS: PANTOPRAZOLE 40 MG TAB PO SCH (10:44)
[2019-11-04] MEDS: TAMSULOSIN 0.4 MG CAP PO SCH (10:44)
[2019-11-04] MEDS: DEXTROSE 5% IN WATER 1,000 ML IV SCH (10:44)
[2019-11-04] MEDS: POTASSIUM CHLORIDE ER 20 MEQ TAB PO SCH ×2 (10:45→13:10)
--- NOTE | 2019-11-04 11:58 | Progress Note ---
<KEESHA PERRY - Last Filed: 11/04/19 11:54> Assessment and Plan Pneumonia Acute respiratory failure Influenza A infection Severe morbid obesity An echocardiogram this admission reports mild decreased left ventricular systolic function, ejection fraction 40-45%. Medical therapy for mild dilated cardiomyopathy. No new cardiac recommendations. We will sign off. Subjective Date of service: 11/04/19 Principal diagnosis: Ac. hypoxic-hypercapnic resp failure; Influenza; extreme obesity; ? DEAN Interval history: Patient reports her breathing is stable. She denies chest pain. Family member is at the bedside. Objective Vital Signs Temp Pulse Pulse Pulse Resp Resp Resp 11/04/19 04:58 97.8 F 16 11/04/19 02:10 78 22 11/03/19 22:00 78 20 11/03/19 20:44 116 H 18 11/03/19 20:41 11/03/19 16:51 98.7 F 115 H 18 11/03/19 14:55 106 H 104 H 18 18 BP Pulse Ox 11/04/19 04:58 140/85 11/04/19 02:10 91 11/03/19 22:00 98 11/03/19 20:44 11/03/19 20:41 94 11/03/19 16:51 137/79 93 11/03/19 14:55 - Physical Examination General: No Apparent Distress, Other (morbidly obese) HEENT: Positive: PERRL Neck: Positive: trachea midline Cardiac: Positive: Reg Rate and Rhythm Lungs: Positive: Decreased Breath Sounds Neuro: Positive: Grossly Intact Abdomen: Positive: Soft - Labs and Meds Comprehensive Metabolic Panel 11/04/19 Range/Units 05:57 Sodium 148 H (137-145) mmol/L Potassium 3.1 L (3.6-5.0) mmol/L Chloride 101.4 (98-107) mmol/L Carbon Dioxide 34 H (22-30) mmol/L BUN 14 (7-17) mg/dL Creatinine 0.5 L (0.7-1.2) mg/dL Glucose 128 H (65-100) mg/dL Calcium 8.7 (8.4-10.2) mg/dL - Allied health notes Allied health notes reviewed: RT <NATALIE MONTEZ - Last Filed: 11/05/19 11:10> Assessment and Plan I seen and evaluated the patient and agree with the assessment and plan. At this time recommend continued goal-directed medical therapy for treatment of mild cardiomyopathy with ejection fraction 4045%. Patient is currently euvolemic. No new cardiac recommendations at this time. He for the consult. Will sign off. Please reconsult as needed. Objective Vital Signs Temp Pulse Pulse Pulse Resp Resp Resp 11/05/19 09:41 89 11/04/19 23:39 97.9 F 88 20 11/04/19 22:00 88 11/04/19 21:10 88 26 H 11/04/19 20:10 11/04/19 20:08 93 H 20 11/04/19 15:29 98.6 F 109 H 18 11/04/19 13:50 108 H 102 H 20 20 11/04/19 11:45 98.2 F 102 H 18 BP Pulse Ox 11/05/19 09:41 125/62 11/04/19 23:39 126/60 96 11/04/19 22:00 96 11/04/19 21:10 99 11/04/19 20:10 95 11/04/19 20:08 11/04/19 15:29 131/81 93 11/04/19 13:50 11/04/19 11:45 122/75 92 - Labs and Meds Comprehensive Metabolic Panel 11/05/19 Range/Units 04:22 Sodium 141 (137-145) mmol/L Potassium 3.4 L (3.6-5.0) mmol/L Chloride 97.4 L (98-107) mmol/L Carbon Dioxide 31 H (22-30) mmol/L BUN 11 (7-17) mg/dL Creatinine 0.4 L (0.7-1.2) mg/dL Glucose 110 H (65-100) mg/dL Calcium 8.7 (8.4-10.2) mg/dL
[2019-11-04] MEDS: carvediloL 6.25 MG TAB PO SCH ×2 (13:10→22:22)
--- NOTE | 2019-11-04 13:11 | Progress Note ---
Assessment and Plan Cultures: 10/17/2019 blood culture: No growth 10/17/2019 influenza A: Positive 10/23/2019 Resp culture: E cloacae 10/25/2019 tracheal aspirate: E cloacae 10/25/2019 blood culture: no growth thus far A/P: 49-year-old female with morbid obesity, hypertension, lymphedema, functional quadriplegia and sleep apnea admitted with: #Influenza A with acute respiratory failure: completed high dose prolonged Tamiflu course. Intubated, on mechanical ventilation. #Superimposed pneumonia: resp culture with E cloacae, patient on Cefepime. Isolate is S to cefepime #Extreme morbid obesity: BMI is 94.3. ?Cefepime 2 gm q8 hrs may not be adequate, but higher doses could increase risk of seizures. Recs: Continue 6g daily cefepime as continuous infusion due to obesity. Plan on 8 days of therapy from initiation of high dose cefepime When ready for discharge, please discharge with levofloxacin 750mg q24h Antibiotic stop date: 11/08/2019 Patient should follow up in our office within 2 weeks of discharge. Thank you for the consult, will sign off. Please call with questions. . Alvaro Jade MD [facility] ([facility]) M: [phone] O: [phone] F: [phone] Subjective Date of service: 11/04/19 Principal diagnosis: Ac. hypoxic-hypercapnic resp failure; Influenza; extreme obesity; ? DEAN Interval history: Afebrile, normal WBC. Now on nasal cannula. Objective - Exam Narrative Exam: Physical Exam: Exam limited due to size. Constitutional: On NC, morbidly obese Head, Ears, Nose: Normocephalic, atraumatic. External ears, nose normal Eyes: Conjunctivae/corneas clear. No icterus. No ptosis. Cardiovascular: S1, S2 normal. Respiratory: Good air entry, clear to auscultation bilaterally, distant breath sounds. GI: Soft, non-tender; bowel sounds normal. No peritoneal signs. Musculoskeletal: No pedal edema, no cyanosis. Skin: No rash or abscess Hem/Lymphatic: No palpable cervical or supraclavicular nodes. No lymphangitis Psych: Mood ok. Affect normal Neurological: Normal, no acute defects - Constitutional Vitals: Vital Signs Temp Pulse Resp BP Pulse Ox 98.2 F 102 H 18 122/75 92 11/04/19 11:45 11/04/19 11:45 11/04/19 11:45 11/04/19 11:45 11/04/19 11:45 Temperature -Last 24 Hours Temperature 98.2 F Temperature 97.8 F Temperature 98.7 F - Labs CBC & Chem 7: 11/01/19 05:30 11/04/19 05:57 Labs: Abnormal lab results 11/04/19 Range/Units 05:57 Sodium 148 H (137-145) mmol/L Potassium 3.1 L (3.6-5.0) mmol/L Carbon Dioxide 34 H (22-30) mmol/L Creatinine 0.5 L (0.7-1.2) mg/dL Glucose 128 H (65-100) mg/dL
[2019-11-04] MEDS: SODIUM CHLORIDE 0.9% IV SCH (15:30)
[2019-11-04] MEDS: CEFEPIME IV SCH (15:30)
--- NOTE | 2019-11-04 16:42 | Progress Note ---
Assessment and Plan Assessment and plan: Acute hypoxemic respiratory failure. Respiratory/tracheal aspirate reveals Enterobacter. The patient failed BiPAP and required intubation on 10/23/2019. Patient now extubated. Pulmonary following. Sepsis. Etiology secondary to pneumonia/influenza A. Continue antibiotics per ID. Influenza A. Completed high dose prolonged Tamiflu course. Bilateral pneumonia. resp culture with GNR, patient on Cefepime. Acute on chronic diastolic heart failure. Echocardiogram revealed The left ventricular size is mildly dilated, mild to moderate concentric LVH, est EF 40- 45%, left atrium is mildly dilated, trace MR, mild TR, mild to moderate Pulmonary hypertension, RVSP is calculated at 42 mmHg. Obesity hypoventilation syndrome/DEAN. Outpatient evaluation for sleep apnea Morbid obesity. BMI is 83. Weight loss and life style modifications on discharge. May need surgical bariatric intervention Agitation on and off. calm today CT head could not be done because of body habitus. Debility PT eval today History Interval history: Agitated on and off shortness of breath gen weakness Hospitalist Physical - Physical exam Narrative exam: GEN: Not in acute distress, lying in bed, morbidly obese HEENT: Normocephalic, atraumatic, Neck: supple, No JVD Lungs: Clear to auscultation bilaterally, no wheeze, heart;S1 and S2 reg, no murmurs Abd:soft, non tender, non distended, normal bowel sounds Ext: No edema, no clubbing, no cyanosis Neuro: AAO X 3, no focal neurological signs, moves all ext - Constitutional Vitals: Temp Pulse Resp BP Pulse Ox 98.2 F 102 H 18 122/75 92 11/04/19 11:45 11/04/19 11:45 11/04/19 11:45 11/04/19 11:45 11/04/19 11:45 General appearance: Present: obese Results - Labs CBC & Chem 7: 11/01/19 05:30 11/04/19 05:57 Labs: Laboratory Last Values WBC 8.5 K/mm3 (4.5-11.0) 11/01/19 05:30 RBC 3.67 M/mm3 (3.65-5.03) 11/01/19 05:30 Hgb 9.7 gm/dl (10.1-14.3) L 11/01/19 05:30 Hct 30.1 % (30.3-42.9) L 11/01/19 05:30 MCV 82 fl (79-97) 11/01/19 05:30 MCH 26 pg (28-32) L 11/01/19 05:30 MCHC 32 % (30-34) 11/01/19 05:30 RDW 21.6 % (13.2-15.2) H 11/01/19 05:30 Plt Count 356 K/mm3 (140-440) 11/01/19 05:30 Lymph % (Auto) 12.5 % (13.4-35.0) L 10/18/19 05:21 [place] % (Auto) 7.9 % (0.0-7.3) H 10/18/19 05:21 Eos % (Auto) 0.0 % (0.0-4.3) 10/18/19 05:21 Baso % (Auto) 1.0 % (0.0-1.8) 10/18/19 05:21 Lymph # 0.4 K/mm3 (1.2-5.4) L 10/18/19 05:21 [place] # 0.3 K/mm3 (0.0-0.8) 10/18/19 05:21 Eos # 0.0 K/mm3 (0.0-0.4) 10/18/19 05:21 Baso # 0.0 K/mm3 (0.0-0.1) 10/18/19 05:21 Add Manual Diff Complete 11/01/19 05:30 Total Counted 100 11/01/19 05:30 Seg Neutrophils % 78.6 % (40.0-70.0) H 10/18/19 05:21 Seg Neuts % (Manual) 70.0 % (40.0-70.0) 11/01/19 05:30 Band Neutrophils % 1.0 % 11/01/19 05:30 Lymphocytes % (Manual) 17.0 % (13.4-35.0) 11/01/19 05:30 Reactive Lymphs % (Man) 0 % 11/01/19 05:30 Monocytes % (Manual) 10.0 % (0.0-7.3) H 11/01/19 05:30 Eosinophils % (Manual) 1.0 % (0.0-4.3) 11/01/19 05:30 Basophils % (Manual) 0 % (0.0-1.8) 11/01/19 05:30 Metamyelocytes % 1.0 % 11/01/19 05:30 Myelocytes % 0 % 11/01/19 05:30 Promyelocytes % 0 % 11/01/19 05:30 Blast Cells % 0 % 11/01/19 05:30 Nucleated RBC % Not Reportable 11/01/19 05:30 Seg Neutrophils # 2.6 K/mm3 (1.8-7.7) 10/18/19 05:21 Seg Neutrophils # Man 6.0 K/mm3 (1.8-7.7) 11/01/19 05:30 Band Neutrophils # 0.1 K/mm3 11/01/19 05:30 Lymphocytes # (Manual) 1.4 K/mm3 (1.2-5.4) 11/01/19 05:30 Abs React Lymphs (Man) 0.0 K/mm3 11/01/19 05:30 Monocytes # (Manual) 0.9 K/mm3 (0.0-0.8) H 11/01/19 05:30 Eosinophils # (Manual) 0.1 K/mm3 (0.0-0.4) 11/01/19 05:30 Basophils # (Manual) 0.0 K/mm3 (0.0-0.1) 11/01/19 05:30 Metamyelocytes # 0.1 K/mm3 11/01/19 05:30 Myelocytes # 0.0 K/mm3 11/01/19 05:30 Promyelocytes # 0.0 K/mm3 11/01/19 05:30 Blast Cells # 0.0 K/mm3 11/01/19 05:30 WBC Morphology Not Reportable 11/01/19 05:30 Hypersegmented Neuts Not Reportable 11/01/19 05:30 Hyposegmented Neuts Not Reportable 11/01/19 05:30 Hypogranular Neuts Not Reportable 11/01/19 05:30 Smudge Cells Not Reportable 11/01/19 05:30 Toxic Granulation Not Reportable 11/01/19 05:30 Toxic Vacuolation Not Reportable 11/01/19 05:30 Dohle Bodies Not Reportable 11/01/19 05:30 Pelger-Huet Anomaly Not Reportable 11/01/19 05:30 Krista Rods Not Reportable 11/01/19 05:30 Platelet Estimate Consistent w auto 11/01/19 05:30 Clumped Platelets Not Reportable 11/01/19 05:30 Plt Clumps, EDTA Not Reportable 11/01/19 05:30 Large Platelets Not Reportable 11/01/19 05:30 Giant Platelets Not Reportable 11/01/19 05:30 Platelet Satelliting Not Reportable 11/01/19 05:30 Plt Morphology Comment Not Reportable 11/01/19 05:30 RBC Morphology Not Reportable 11/01/19 05:30 Dimorphic RBCs Not Reportable 11/01/19 05:30 Polychromasia Rare 11/01/19 05:30 Hypochromasia Not Reportable 11/01/19 05:30 Poikilocytosis Not Reportable 11/01/19 05:30 Anisocytosis 1+ 11/01/19 05:30 Microcytosis Not Reportable 11/01/19 05:30 Macrocytosis Not Reportable 11/01/19 05:30 Spherocytes Not Reportable 11/01/19 05:30 Pappenheimer Bodies Not Reportable 11/01/19 05:30 Sickle Cells Not Reportable 11/01/19 05:30 Target Cells Not Reportable 11/01/19 05:30 Tear Drop Cells Not Reportable 11/01/19 05:30 Ovalocytes Not Reportable 11/01/19 05:30 Stomatocytes 2+ 11/01/19 05:30 Helmet Cells Not Reportable 11/01/19 05:30 Gallagher-Duck Bodies Not Reportable 11/01/19 05:30 [place] Rings Not Reportable 11/01/19 05:30 [place] Cells Not Reportable 11/01/19 05:30 Bite Cells Not Reportable 11/01/19 05:30 Crenated Cell Not Reportable 11/01/19 05:30 Elliptocytes Not Reportable 11/01/19 05:30 Acanthocytes (Spur) Not Reportable 11/01/19 05:30 Rouleaux Not Reportable 11/01/19 05:30 Hemoglobin C Crystals Not Reportable 11/01/19 05:30 Schistocytes Not Reportable 11/01/19 05:30 Malaria parasites Not Reportable 11/01/19 05:30 Alejandro Bodies Not Reportable 11/01/19 05:30 Hem Pathologist Commnt No 11/01/19 05:30 POC ABG pH 7.522 (7.35-7.45) H 11/02/19 23:02 ABG pH 7.419 pH Units (7.350-7.450) 11/01/19 04:25 POC ABG pCO2 50.0 (35-45) H 11/02/19 23:02 ABG pCO2 60.3 mm Hg 11/01/19 04:25 POC ABG pO2 71 (80-105) L 11/02/19 23:02 ABG pO2 67.0 mm Hg (80.0-90.0) L 11/01/19 04:25 POC ABG HCO3 41.0 (22-26 mml/L) 11/02/19 23:02 ABG HCO3 38.2 mmol/L (20.0-26.0) H 11/01/19 04:25 POC ABG Total CO2 42 (23-27mmol/L) 11/02/19 23:02 POC ABG O2 Sat 95 11/02/19 23:02 ABG O2 Saturation 94.2 % (95.0-99.0) L 11/01/19 04:25 ABG O2 Content 13.8 (0.0-44) 11/01/19 04:25 POC ABG Base Excess 18 ((-2) - (+3)mmol/L) 11/02/19 23:02 ABG Base Excess 11.8 mmol/L (-2.0-3.0) H 11/01/19 04:25 ABG Hemoglobin 10.7 gm/dl (12.0-16.0) L 11/01/19 04:25 ABG Carboxyhemoglobin 2.3 % (0.0-5.0) 11/01/19 04:25 ABG Methemoglobin 0.5 % (0.0-1.5) 11/01/19 04:25 Oxyhemoglobin 91.6 % (95.0-99.0) L 11/01/19 04:25 FiO2 50 % 11/02/19 23:02 Sodium 148 mmol/L (137-145) H 11/04/19 05:57 Potassium 3.1 mmol/L (3.6-5.0) L 11/04/19 05:57 Chloride 101.4 mmol/L (98-107) 11/04/19 05:57 Carbon Dioxide 34 mmol/L (22-30) H 11/04/19 05:57 Anion Gap 16 mmol/L 11/04/19 05:57 BUN 14 mg/dL (7-17) 11/04/19 05:57 Creatinine 0.5 mg/dL (0.7-1.2) L 11/04/19 05:57 Estimated GFR > 60 ml/min 11/04/19 05:57 BUN/Creatinine Ratio 28 % 11/04/19 05:57 Glucose 128 mg/dL (65-100) H 11/04/19 05:57 POC Glucose 126 (70-105) H 11/02/19 22:46 Calcium 8.7 mg/dL (8.4-10.2) 11/04/19 05:57 Total Bilirubin 0.20 mg/dL (0.1-1.2) 10/17/19 20:57 AST 57 units/L (5-40) H 10/17/19 20:57 ALT 22 units/L (7-56) 10/17/19 20:57 Alkaline Phosphatase 67 units/L (35-129) 10/17/19 20:57 Total Creatine Kinase 72 units/L (30-135) 10/30/19 09:54 CK-MB (CK-2) < 1.0 ng/mL (0.0-4.0) 10/30/19 09:54 CK-MB (CK-2) Rel Index 1.3 (0-4) 10/30/19 09:54 Troponin T < 0.010 ng/mL (0.00-0.029) 10/30/19 09:54 NT-Pro-B Natriuret Pep 317.6 pg/mL (0-450) 10/17/19 20:57 Total Protein 7.1 g/dL (6.3-8.2) 10/17/19 20:57 Albumin 3.0 g/dL (3.9-5) L 10/17/19 20:57 Albumin/Globulin Ratio 0.7 % 10/17/19 20:57 Triglycerides 279 mg/dL (2-149) H 10/27/19 05:40 Procalcitonin 0.06 ng/mL (<0.15) 10/20/19 14:51 Influenza A (Rapid) Positive (Negative) A 10/17/19 Unknown Influenza B (Rapid) Negative (Negative) 10/17/19 Unknown Active Medications - Current Medications Current Medications: Generic Name Dose Route Start Last Admin Trade Name Freq PRN Reason Stop Dose Admin Acetaminophen 650 mg 10/27/19 08:38 11/02/19 08:46 Tylenol PO 650 mg Q4H PRN Administration Non Cardiac Pain or Temp>100.5 Albuterol 2.5 mg 10/17/19 22:47 10/19/19 14:34 Proventil IH 2.5 mg Q3HRT PRN Administration Shortness Of Breath Albuterol/Ipratropium 1 ampul 10/19/19 20:00 11/04/19 13:48 Duoneb *Not For Prn Use* IH 1 ampul TIDRT EDI Administration Carvedilol 6.25 mg 11/04/19 13:00 11/04/19 13:10 Coreg PO 6.25 mg BID EDI Administration Heparin Sodium (Porcine) 5,000 unit 10/18/19 06:00 11/04/19 13:10 Heparin SUB-Q 5,000 unit Q8HR EDI Administration Hydrophilic Ointment 1 applic 10/23/19 17:29 10/27/19 00:29 Vaseline Lip Therapy TP 1 applic Q2HR PRN Administration Dry Lips Cefepime HCl 6 gm/ Sodium 250 mls @ 10.417 mls/hr 10/31/19 14:00 11/04/19 15:30 Chloride IV 11/08/19 13:59 10.417 mls/hr Q24H EDI Administration Dextrose 1,000 mls @ 75 mls/hr 11/04/19 09:00 11/04/19 10:44 D5w IV 75 mls/hr DIRECT EDI Administration Labetalol HCl 10 mg 10/24/19 14:32 Labetalol IV Q4H PRN Blood Pressure Magnesium Hydroxide 30 ml 10/30/19 10:04 10/30/19 10:48 Milk Of Magnesia PO 30 ml Q4H PRN Administration INDIGESTION Morphine Sulfate 2 mg 10/17/19 22:47 11/02/19 01:11 Morphine IV 2 mg Q4H PRN Administration Pain, Moderate (4-6) Multi-Ingred Cream/Lotion/Oil/Oint 1 applic 10/23/19 17:29 Artificial Tears Ophth Oint OU Q4HR PRN Dry Eye(s) Ondansetron HCl 4 mg 10/17/19 22:47 10/29/19 02:45 Zofran IV 4 mg Q8H PRN Administration Nausea And Vomiting Pantoprazole Sodium 40 mg 11/03/19 10:00 11/04/19 10:44 Protonix PO 40 mg DAILY EDI Administration Sodium Chloride 10 ml 10/18/19 10:00 11/04/19 10:45 Sodium Chloride Flush Syringe 10 Ml IV 10 ml BID EDI Administration Sodium Chloride 10 ml 10/17/19 22:47 Sodium Chloride Flush Syringe 10 Ml IV PRN PRN LINE FLUSH Tamsulosin HCl 0.4 mg 10/30/19 11:00 11/04/19 10:44 Flomax PO 0.4 mg QDAY EDI Administration Nutrition/Malnutrition Assess - Dietary Evaluation Nutrition/Malnutrition Findings: Nutrition Notes Start: 10/19/19 13:20 Freq: Status: Active Protocol: Document 11/03/19 09:39 CT (Rec: 11/03/19 10:00 CT [id number]) Co-Sign 11/03/19 09:39 LM Nutrition Notes Initial or Follow up Reassessment Current Diagnosis Hypertension,Respiratory Failure Other Pertinent Diagnosis Influlenza A pneumonia, lymphedema, pulmonary edema, SOB, DVT Current Diet Low Sodium Diet Labs/Tests Na 147 Cr 0.4 Glu 136 Pertinent Medications Reviewed Height 5 ft 6 in Weight 233.6 kg [place] Body Weight (kg) 59.09 BMI 83.1 Weight change and time frame Wt change noted. Possibly due to fluid. Subjective/Other Information Follow up for TF tolerance and Na labs. TF was d/c when patient was taken off the vent . [employer] recommended a regular diet. Pt has no issues swallowing. Pt ate 50% of breakfast and stated eating 1/ 3 of each meal the previous day. Pt states she has no appetite, "once she trusts the process, then her appetite will get better." Pt preferences were noted. Percent of energy/protein needs met: 42% energy / 26% protein Burn Absent Trauma Absent Current % PO Fair (50-74%) Minimum of two criteria No #2 Nutrition Diagnosis Inadequate oral intake As Evidenced by Signs and Symptoms Pt able to consume PO, but no appetite Diagnosis Progress(for reassessment Improved documentation) Is patient on ventilator? No Is Patient Ambulatory and/or Out of Bed No REE-([facility]-confined to bed) 3581.100 Kcal/Kg value to use for calculation 8 Approximate Energy Requirements Using 1869 kcal/Kg Calculation Used for Recommendations Kcal/kg Additional Notes Protein needs: 117-146 g/kg/ day (0.8-1 g/kg/day AdBW 146 kg) Fluid: 1 ml/kcal Nutrition Intervention Change Diet Order: Cardiac Diet Goal #1 Meet at least 75% of energy and protein needs Anticipated Discharge Needs: Cardiac diet Follow-Up By: 11/05/19 Additional Comments Follow up for PO intakes
--- NOTE | 2019-11-04 16:48 | Progress Note ---
Assessment and Plan Patient 49yo female with history of HTN recently treated for pneumonia and influenza. Patient is awake and alert. Patient is currently on 4.5L via nasal canula with O2 saturation of 92%. BIPAP on standby in room. Patient is afebrile with no leukocytosis. Patient ABG 11/02/2019 pH 7.52/ pCO2 50/ pO2 71/ HCO3 41/ O2 Sat 95%/ FiO2 50% Chest X-ray Reported 11/01/2019 Diffuse bilateral pulmonary opacities persist unchanged. Small bilateral pleural effusions are stable. No pneumothorax. Stable appearance of the chest radiograph. Social History: Smoking, alcohol, & drug history is not known at this time. Patient unmarried and has one daughter - Patient Problems (1) Pleural effusion Current Visit: Yes Status: Acute Plan to address problem: small bilateral pleural effusions Follow with repeat chest xray (2) Acute and chronic respiratory failure with hypercapnia Current Visit: Yes Status: Acute Plan to address problem: 1. On 3.5L O2 via nasal canula 2. Albuterol/Atrovent aerosol treatments q6 PRN shortness of breath. 3. Brovanna and Budesonide aerosol treatments q12 4. Continue Cefepime 5. Continue SC Heparin 6. Continue Protonix (3) Morbid obesity Current Visit: Yes Status: Acute Plan to address problem: Recommend to lose weight Recommend sleep study as outpatient Subjective Date of service: 11/04/19 Principal diagnosis: Ac. hypoxic-hypercapnic resp failure; Influenza; extreme obesity; ? DEAN Interval history: Patient 49yo female with history of HTN recently treated for pneumonia and influenza. Patient is awake and alert. Patient is currently on 3.5L via nasal canula with O2 saturation of 93%. BIPAP on standby in room. Patient is afebrile with no leukocytosis. Patient ABG 11/02/2019 pH 7.52/ pCO2 50/ pO2 71/ HCO3 41/ O2 Sat 95%/ FiO2 50% Chest X-ray Reported 11/01/2019 Diffuse bilateral pulmonary opacities persist unchanged. Small bilateral pleural effusions are stable. No pneumothorax. Stable appearance of the chest ra diograph. Social History: Smoking, alcohol, & drug history is not known at this time. Patient unmarried and has one daughter Objective Vital Signs - 12hr 11/04/19 11/04/19 11/04/19 04:58 08:00 08:20 Temperature 97.8 F Pulse Rate Pulse Rate [ 112 H Anterior Bilateral Throughout] Pulse Rate [ 106 H Bilateral] Respiratory 16 Rate Respiratory 20 Rate [Anterior Bilateral Throughout] Respiratory 18 Rate [Bilateral ] Blood Pressure 140/85 O2 Sat by Pulse 97 Oximetry 11/04/19 11/04/19 08:40 11:45 Temperature 98.2 F Pulse Rate 102 H Pulse Rate [ Anterior Bilateral Throughout] Pulse Rate [ Bilateral] Respiratory 18 Rate Respiratory Rate [Anterior Bilateral Throughout] Respiratory Rate [Bilateral ] Blood Pressure 122/75 O2 Sat by Pulse 93 92 Oximetry Constitutional: no acute distress, alert, other (morbidly obese middle aged CF with mildly increased resp effort at rest) Eyes: non-icteric ENT: oropharynx moist Neck: supple, no lymphadenopathy, no JVD, other (short neck, large circumference) Effort: mildly labored Ascultation: Bilateral: diminished breath sounds, rhonchi Percussion: Bilateral: not dull Cardiovascular: regular rate and rhythm, other (S1,S2) Gastrointestinal: normoactive bowel sounds, soft, non-tender, non-distended Integumentary: normal Extremities: no cyanosis, no edema, pink and warm, pulses normal Neurologic: normal mental status, non-focal exam, pupils equal and round, CN II- XII normal, motor strength normal and Psychiatric: mood appropriate, affect normal CBC and BMP: 11/01/19 05:30 11/04/19 05:57 ABG, PT/INR, D-dimer: ABG POC ABG pH 7.522 (7.35-7.45) H 11/02/19 23:02 ABG pH 7.419 pH Units (7.350-7.450) 11/01/19 04:25 POC ABG pCO2 50.0 (35-45) H 11/02/19 23:02 ABG pCO2 60.3 mm Hg 11/01/19 04:25 POC ABG pO2 71 (80-105) L 11/02/19 23:02 ABG pO2 67.0 mm Hg (80.0-90.0) L 11/01/19 04:25 POC ABG HCO3 41.0 (22-26 mml/L) 11/02/19 23:02 POC ABG Total CO2 42 (23-27mmol/L) 11/02/19 23:02 POC ABG O2 Sat 95 11/02/19 23:02 ABG O2 Saturation 94.2 % (95.0-99.0) L 11/01/19 04:25 Abnormal lab findings: Abnormal Labs 10/17/19 10/17/19 10/17/19 20:57 20:57 Unknown WBC 4.0 L RBC Hgb Hct MCV 78 L MCH 25 L RDW 24.7 H Lymph % (Auto) Scott % (Auto) Lymph # Seg Neutrophils % Seg Neuts % (Manual) 77.0 H Monocytes % (Manual) 9.0 H Lymphocytes # (Manual) 0.6 L Monocytes # (Manual) POC ABG pH ABG pH POC ABG pCO2 POC ABG pO2 ABG pO2 ABG HCO3 ABG O2 Saturation ABG Base Excess ABG Hemoglobin Oxyhemoglobin Sodium Potassium 3.5 L Chloride Carbon Dioxide BUN Creatinine 0.6 L Glucose 147 H POC Glucose Calcium 7.9 L AST 57 H Total Creatine Kinase 857 H Albumin 3.0 L Triglycerides Influenza A (Rapid) Positive A 10/18/19 10/18/19 10/18/19 05:21 05:21 09:19 WBC 3.3 L RBC Hgb Hct MCV MCH 25 L RDW 24.3 H Lymph % (Auto) 12.5 L Scott % (Auto) 7.9 H Lymph # 0.4 L Seg Neutrophils % 78.6 H Seg Neuts % (Manual) Monocytes % (Manual) Lymphocytes # (Manual) Monocytes # (Manual) POC ABG pH ABG pH POC ABG pCO2 POC ABG pO2 ABG pO2 131.3 H ABG HCO3 30.2 H ABG O2 Saturation ABG Base Excess 4.5 H ABG Hemoglobin 10.7 L Oxyhemoglobin Sodium Potassium Chloride Carbon Dioxide BUN Creatinine Glucose 167 H POC Glucose Calcium 8.3 L AST Total Creatine Kinase Albumin Triglycerides Influenza A (Rapid) 10/18/19 10/18/19 10/19/19 11:28 18:27 06:39 WBC RBC Hgb Hct MCV MCH RDW Lymph % (Auto) Scott % (Auto) Lymph # Seg Neutrophils % Seg Neuts % (Manual) Monocytes % (Manual) Lymphocytes # (Manual) Monocytes # (Manual) POC ABG pH 7.461 H 7.487 H ABG pH POC ABG pCO2 53.4 H 52.8 H 51.7 H POC ABG pO2 70 L 71 L ABG pO2 ABG HCO3 ABG O2 Saturation ABG Base Excess ABG Hemoglobin Oxyhemoglobin Sodium Potassium Chloride Carbon Dioxide BUN Creatinine Glucose POC Glucose Calcium AST Total Creatine Kinase Albumin Triglycerides Influenza A (Rapid) 10/19/19 10/20/19 10/20/19 23:25 05:31 09:08 WBC RBC Hgb Hct MCV MCH RDW Lymph % (Auto) Scott % (Auto) Lymph # Seg Neutrophils % Seg Neuts % (Manual) Monocytes % (Manual) Lymphocytes # (Manual) Monocytes # (Manual) POC ABG pH ABG pH POC ABG pCO2 POC ABG pO2 ABG pO2 ABG HCO3 ABG O2 Saturation ABG Base Excess ABG Hemoglobin Oxyhemoglobin Sodium Potassium Chloride Carbon Dioxide BUN Creatinine Glucose POC Glucose 203 H 144 H 163 H Calcium AST Total Creatine Kinase Albumin Triglycerides Influenza A (Rapid) 10/20/19 10/20/19 10/20/19 10:25 13:22 14:51 WBC RBC Hgb Hct MCV MCH RDW Lymph % (Auto) Scott % (Auto) Lymph # Seg Neutrophils % Seg Neuts % (Manual) Monocytes % (Manual) Lymphocytes # (Manual) Monocytes # (Manual) POC ABG pH 7.632 H ABG pH POC ABG pCO2 POC ABG pO2 74 L ABG pO2 ABG HCO3 ABG O2 Saturation ABG Base Excess ABG Hemoglobin Oxyhemoglobin Sodium 147 H Potassium Chloride Carbon Dioxide 31 H BUN Creatinine 0.5 L Glucose 154 H POC Glucose 178 H Calcium 8.2 L AST Total Creatine Kinase Albumin Triglycerides Influenza A (Rapid) 10/20/19 10/20/19 10/20/19 14:51 17:16 21:30 WBC 11.2 H RBC Hgb Hct MCV 78 L MCH 25 L RDW 23.9 H Lymph % (Auto) Scott % (Auto) Lymph # Seg Neutrophils % Seg Neuts % (Manual) Monocytes % (Manual) Lymphocytes # (Manual) Monocytes # (Manual) POC ABG pH ABG pH POC ABG pCO2 POC ABG pO2 ABG pO2 ABG HCO3 ABG O2 Saturation ABG Base Excess ABG Hemoglobin Oxyhemoglobin Sodium Potassium Chloride Carbon Dioxide BUN Creatinine Glucose POC Glucose 143 H 152 H Calcium AST Total Creatine Kinase Albumin Triglycerides Influenza A (Rapid) 10/20/19 10/21/19 10/21/19 22:52 05:55 08:27 WBC RBC Hgb Hct MCV MCH RDW Lymph % (Auto) Scott % (Auto) Lymph # Seg Neutrophils % Seg Neuts % (Manual) Monocytes % (Manual) Lymphocytes # (Manual) Monocytes # (Manual) POC ABG pH ABG pH POC ABG pCO2 POC ABG pO2 ABG pO2 ABG HCO3 ABG O2 Saturation ABG Base Excess ABG Hemoglobin Oxyhemoglobin Sodium Potassium Chloride Carbon Dioxide BUN Creatinine Glucose POC Glucose 179 H 115 H 131 H Calcium AST Total Creatine Kinase Albumin Triglycerides Influenza A (Rapid) 10/21/19 10/21/19 10/21/19 11:52 16:23 23:38 WBC RBC Hgb Hct MCV MCH RDW Lymph % (Auto) Scott % (Auto) Lymph # Seg Neutrophils % Seg Neuts % (Manual) Monocytes % (Manual) Lymphocytes # (Manual) Monocytes # (Manual) POC ABG pH ABG pH POC ABG pCO2 POC ABG pO2 ABG pO2 ABG HCO3 ABG O2 Saturation ABG Base Excess ABG Hemoglobin Oxyhemoglobin Sodium Potassium Chloride Carbon Dioxide BUN Creatinine Glucose POC Glucose 122 H 120 H 115 H Calcium AST Total Creatine Kinase Albumin Triglycerides Influenza A (Rapid) 10/22/19 10/22/19 10/22/19 00:35 05:19 06:10 WBC RBC Hgb Hct MCV MCH 25 L RDW 22.8 H Lymph % (Auto) Scott % (Auto) Lymph # Seg Neutrophils % Seg Neuts % (Manual) Monocytes % (Manual) Lymphocytes # (Manual) Monocytes # (Manual) POC ABG pH ABG pH 7.520 H POC ABG pCO2 POC ABG pO2 ABG pO2 64.4 L ABG HCO3 36.8 H ABG O2 Saturation ABG Base Excess 12.6 H ABG Hemoglobin 10.4 L Oxyhemoglobin Sodium Potassium Chloride Carbon Dioxide BUN Creatinine Glucose POC Glucose 108 H Calcium AST Total Creatine Kinase Albumin Triglycerides Influenza A (Rapid) 10/22/19 10/24/19 10/25/19 15:40 05:49 04:20 WBC RBC Hgb Hct MCV MCH RDW Lymph % (Auto) Scott % (Auto) Lymph # Seg Neutrophils % Seg Neuts % (Manual) Monocytes % (Manual) Lymphocytes # (Manual) Monocytes # (Manual) POC ABG pH 7.454 H ABG pH POC ABG pCO2 64.1 H 63.5 H POC ABG pO2 73 L ABG pO2 ABG HCO3 ABG O2 Saturation ABG Base Excess ABG Hemoglobin Oxyhemoglobin Sodium 136 L D Potassium Chloride 97.6 L Carbon Dioxide BUN 19 H Creatinine Glucose 125 H POC Glucose Calcium AST Total Creatine Kinase Albumin Triglycerides Influenza A (Rapid) 10/25/19 10/25/19 10/26/19 05:35 05:35 04:19 WBC RBC Hgb 10.0 L Hct MCV MCH 25 L RDW 22.0 H Lymph % (Auto) Scott % (Auto) Lymph # Seg Neutrophils % Seg Neuts % (Manual) Monocytes % (Manual) Lymphocytes # (Manual) Monocytes # (Manual) POC ABG pH ABG pH POC ABG pCO2 66.1 H POC ABG pO2 75 L ABG pO2 ABG HCO3 ABG O2 Saturation ABG Base Excess ABG Hemoglobin Oxyhemoglobin Sodium 147 H D Potassium Chloride Carbon Dioxide 34 H D BUN 23 H Creatinine 0.5 L Glucose 184 H POC Glucose Calcium AST Total Creatine Kinase Albumin Triglycerides Influenza A (Rapid) 10/26/19 10/26/19 10/26/19 05:20 05:20 12:44 WBC RBC Hgb 9.5 L Hct MCV MCH 25 L RDW 22.3 H Lymph % (Auto) Scott % (Auto) Lymph # Seg Neutrophils % Seg Neuts % (Manual) Monocytes % (Manual) Lymphocytes # (Manual) Monocytes # (Manual) POC ABG pH 7.501 H ABG pH POC ABG pCO2 54.7 H POC ABG pO2 69 L ABG pO2 ABG HCO3 ABG O2 Saturation ABG Base Excess ABG Hemoglobin Oxyhemoglobin Sodium 152 H Potassium Chloride Carbon Dioxide 33 H BUN 27 H Creatinine 0.6 L Glucose 135 H POC Glucose Calcium AST Total Creatine Kinase Albumin Triglycerides Influenza A (Rapid) 10/27/19 10/27/19 10/27/19 03:30 05:40 05:40 WBC RBC 3.62 L Hgb 9.4 L Hct 29.1 L MCV MCH 26 L RDW 21.7 H Lymph % (Auto) Scott % (Auto) Lymph # Seg Neutrophils % Seg Neuts % (Manual) Monocytes % (Manual) Lymphocytes # (Manual) Monocytes # (Manual) POC ABG pH ABG pH 7.472 H POC ABG pCO2 POC ABG pO2 ABG pO2 ABG HCO3 38.2 H ABG O2 Saturation ABG Base Excess 13.3 H ABG Hemoglobin 6.5 L Oxyhemoglobin Sodium 149 H Potassium 3.3 L Chloride Carbon Dioxide 31 H BUN 25 H Creatinine 0.5 L Glucose 142 H POC Glucose Calcium 8.2 L AST Total Creatine Kinase Albumin Triglycerides Influenza A (Rapid) 10/27/19 10/28/19 10/28/19 05:40 05:19 05:56 WBC RBC Hgb Hct MCV MCH RDW Lymph % (Auto) Scott % (Auto) Lymph # Seg Neutrophils % Seg Neuts % (Manual) Monocytes % (Manual) Lymphocytes # (Manual) Monocytes # (Manual) POC ABG pH 7.489 H ABG pH POC ABG pCO2 51.0 H POC ABG pO2 71 L ABG pO2 ABG HCO3 ABG O2 Saturation ABG Base Excess ABG Hemoglobin Oxyhemoglobin Sodium 153 H Potassium Chloride Carbon Dioxide 31 H BUN Creatinine 0.4 L Glucose 111 H POC Glucose Calcium 8.1 L AST Total Creatine Kinase Albumin Triglycerides 279 H Influenza A (Rapid) 10/29/19 10/29/19 10/30/19 03:54 04:21 04:48 WBC RBC Hgb Hct MCV MCH RDW Lymph % (Auto) Scott % (Auto) Lymph # Seg Neutrophils % Seg Neuts % (Manual) Monocytes % (Manual) Lymphocytes # (Manual) Monocytes # (Manual) POC ABG pH 7.506 H 7.508 H ABG pH POC ABG pCO2 53.6 H 49.6 H POC ABG pO2 ABG pO2 ABG HCO3 ABG O2 Saturation ABG Base Excess ABG Hemoglobin Oxyhemoglobin Sodium 150 H Potassium Chloride Carbon Dioxide BUN Creatinine 0.4 L Glucose 137 H POC Glucose Calcium AST Total Creatine Kinase Albumin Triglycerides Influenza A (Rapid) 10/30/19 10/30/19 10/31/19 09:54 21:08 00:17 WBC RBC Hgb Hct MCV MCH RDW Lymph % (Auto) Scott % (Auto) Lymph # Seg Neutrophils % Seg Neuts % (Manual) Monocytes % (Manual) Lymphocytes # (Manual) Monocytes # (Manual) POC ABG pH 7.455 H ABG pH POC ABG pCO2 58.6 H POC ABG pO2 74 L ABG pO2 ABG HCO3 ABG O2 Saturation ABG Base Excess ABG Hemoglobin Oxyhemoglobin Sodium 148 H Potassium Chloride Carbon Dioxide BUN Creatinine 0.4 L Glucose 156 H POC Glucose 160 H Calcium AST Total Creatine Kinase Albumin Triglycerides Influenza A (Rapid) 10/31/19 10/31/19 10/31/19 04:42 08:02 16:24 WBC RBC Hgb Hct MCV MCH RDW Lymph % (Auto) Scott % (Auto) Lymph # Seg Neutrophils % Seg Neuts % (Manual) Monocytes % (Manual) Lymphocytes # (Manual) Monocytes # (Manual) POC ABG pH ABG pH POC ABG pCO2 62.2 H POC ABG pO2 76 L ABG pO2 ABG HCO3 ABG O2 Saturation ABG Base Excess ABG Hemoglobin Oxyhemoglobin Sodium 149 H Potassium Chloride Carbon Dioxide BUN Creatinine 0.4 L Glucose 146 H POC Glucose 143 H Calcium AST Total Creatine Kinase Albumin Triglycerides Influenza A (Rapid) 11/01/19 11/01/19 11/01/19 04:25 05:30 05:30 WBC RBC Hgb 9.7 L Hct 30.1 L MCV MCH 26 L RDW 21.6 H Lymph % (Auto) Scott % (Auto) Lymph # Seg Neutrophils % Seg Neuts % (Manual) Monocytes % (Manual) 10.0 H Lymphocytes # (Manual) Monocytes # (Manual) 0.9 H POC ABG pH ABG pH POC ABG pCO2 POC ABG pO2 ABG pO2 67.0 L ABG HCO3 38.2 H ABG O2 Saturation 94.2 L ABG Base Excess 11.8 H ABG Hemoglobin 10.7 L Oxyhemoglobin 91.6 L Sodium 147 H Potassium Chloride Carbon Dioxide 31 H BUN Creatinine 0.4 L Glucose 136 H POC Glucose Calcium AST Total Creatine Kinase Albumin Triglycerides Influenza A (Rapid) 11/01/19 11/02/19 11/02/19 10:32 22:46 23:02 WBC RBC Hgb Hct MCV MCH RDW Lymph % (Auto) Scott % (Auto) Lymph # Seg Neutrophils % Seg Neuts % (Manual) Monocytes % (Manual) Lymphocytes # (Manual) Monocytes # (Manual) POC ABG pH 7.465 H 7.522 H ABG pH POC ABG pCO2 56.8 H 50.0 H POC ABG pO2 71 L ABG pO2 ABG HCO3 ABG O2 Saturation ABG Base Excess ABG Hemoglobin Oxyhemoglobin Sodium Potassium Chloride Carbon Dioxide BUN Creatinine Glucose POC Glucose 126 H Calcium AST Total Creatine Kinase Albumin Triglycerides Influenza A (Rapid) 11/04/19 05:57 WBC RBC Hgb Hct MCV MCH RDW Lymph % (Auto) Scott % (Auto) Lymph # Seg Neutrophils % Seg Neuts % (Manual) Monocytes % (Manual) Lymphocytes # (Manual) Monocytes # (Manual) POC ABG pH ABG pH POC ABG pCO2 POC ABG pO2 ABG pO2 ABG HCO3 ABG O2 Saturation ABG Base Excess ABG Hemoglobin Oxyhemoglobin Sodium 148 H Potassium 3.1 L Chloride Carbon Dioxide 34 H BUN Creatinine 0.5 L Glucose 128 H POC Glucose Calcium AST Total Creatine Kinase Albumin Triglycerides Influenza A (Rapid) Allied health notes reviewed: RT
[2019-11-04] MEDS: HYDROcodone/ACETAMINOPHEN 5-325 MG TAB PO PRN (18:23)
[2019-11-05] MEDS: DEXTROSE 5% IN WATER 1,000 ML IV SCH ×2 (04:16→18:14)
[2019-11-05] MEDS: HEPARIN 5,000 UNIT/1 ML VIAL SUB-Q SCH ×3 (05:36→22:02)
[2019-11-05 06:02] LABS: BUN/Creatinine Ratio 28; Blood Urea Nitrogen 11 mg/dL (7-17); Calcium 8.7 mg/dL (8.4-10.2); Hemolysis Index 4
[2019-11-05] MEDS: IPRATROPIUM/ALBUTEROL SULFATE 3 ML AMPUL.NEB IH SCH ×3 (08:10→19:40)
[2019-11-05] MEDS: TAMSULOSIN 0.4 MG CAP PO SCH (09:41)
[2019-11-05] MEDS: carvediloL 6.25 MG TAB PO SCH ×2 (09:41→22:03)
[2019-11-05] MEDS: PANTOPRAZOLE 40 MG TAB PO SCH (09:41)
--- NOTE | 2019-11-05 12:09 | Progress Note ---
Assessment and Plan Assessment and plan: Acute hypoxemic respiratory failure. Respiratory/tracheal aspirate reveals Enterobacter. The patient failed BiPAP and required intubation on 10/23/2019. Patient now extubated. Pulmonary following. Sepsis. Etiology secondary to pneumonia/influenza A. Continue antibiotics per ID. Influenza A. Completed high dose prolonged Tamiflu course. Bilateral pneumonia. resp culture with GNR, patient on Cefepime. Acute on chronic diastolic heart failure. Echocardiogram revealed The left ventricular size is mildly dilated, mild to moderate concentric LVH, est EF 40- 45%, left atrium is mildly dilated, trace MR, mild TR, mild to moderate Pulmonary hypertension, RVSP is calculated at 42 mmHg. Obesity hypoventilation syndrome/DEAN. Outpatient evaluation for sleep apnea Morbid obesity. BMI is 83. Weight loss and life style modifications on discharge. May need surgical bariatric intervention Agitation on and off. calm today CT head could not be done because of body habitus. Debility PT eval ongoing Hopefully dc soon. History Interval history: Agitated on and off shortness of breath gen weakness Hospitalist Physical - Physical exam Narrative exam: GEN: Not in acute distress, lying in bed, morbidly obese HEENT: Normocephalic, atraumatic, Neck: supple, No JVD Lungs: Clear to auscultation bilaterally, no wheeze, heart;S1 and S2 reg, no murmurs Abd:soft, non tender, non distended, normal bowel sounds Ext: No edema, no clubbing, no cyanosis Neuro: AAO X 3, no focal neurological signs, moves all ext - Constitutional Vitals: Temp Pulse Resp BP Pulse Ox 98.7 F 86 22 111/54 95 11/05/19 11:40 11/05/19 11:40 11/05/19 11:40 11/05/19 11:40 11/05/19 11:40 General appearance: Present: obese Results - Labs CBC & Chem 7: 11/01/19 05:30 11/05/19 04:22 Labs: Laboratory Last Values WBC 8.5 K/mm3 (4.5-11.0) 11/01/19 05:30 RBC 3.67 M/mm3 (3.65-5.03) 11/01/19 05:30 Hgb 9.7 gm/dl (10.1-14.3) L 11/01/19 05:30 Hct 30.1 % (30.3-42.9) L 11/01/19 05:30 MCV 82 fl (79-97) 11/01/19 05:30 MCH 26 pg (28-32) L 11/01/19 05:30 MCHC 32 % (30-34) 11/01/19 05:30 RDW 21.6 % (13.2-15.2) H 11/01/19 05:30 Plt Count 356 K/mm3 (140-440) 11/01/19 05:30 Lymph % (Auto) 12.5 % (13.4-35.0) L 10/18/19 05:21 [place] % (Auto) 7.9 % (0.0-7.3) H 10/18/19 05:21 Eos % (Auto) 0.0 % (0.0-4.3) 10/18/19 05:21 Baso % (Auto) 1.0 % (0.0-1.8) 10/18/19 05:21 Lymph # 0.4 K/mm3 (1.2-5.4) L 10/18/19 05:21 [place] # 0.3 K/mm3 (0.0-0.8) 10/18/19 05:21 Eos # 0.0 K/mm3 (0.0-0.4) 10/18/19 05:21 Baso # 0.0 K/mm3 (0.0-0.1) 10/18/19 05:21 Add Manual Diff Complete 11/01/19 05:30 Total Counted 100 11/01/19 05:30 Seg Neutrophils % 78.6 % (40.0-70.0) H 10/18/19 05:21 Seg Neuts % (Manual) 70.0 % (40.0-70.0) 11/01/19 05:30 Band Neutrophils % 1.0 % 11/01/19 05:30 Lymphocytes % (Manual) 17.0 % (13.4-35.0) 11/01/19 05:30 Reactive Lymphs % (Man) 0 % 11/01/19 05:30 Monocytes % (Manual) 10.0 % (0.0-7.3) H 11/01/19 05:30 Eosinophils % (Manual) 1.0 % (0.0-4.3) 11/01/19 05:30 Basophils % (Manual) 0 % (0.0-1.8) 11/01/19 05:30 Metamyelocytes % 1.0 % 11/01/19 05:30 Myelocytes % 0 % 11/01/19 05:30 Promyelocytes % 0 % 11/01/19 05:30 Blast Cells % 0 % 11/01/19 05:30 Nucleated RBC % Not Reportable 11/01/19 05:30 Seg Neutrophils # 2.6 K/mm3 (1.8-7.7) 10/18/19 05:21 Seg Neutrophils # Man 6.0 K/mm3 (1.8-7.7) 11/01/19 05:30 Band Neutrophils # 0.1 K/mm3 11/01/19 05:30 Lymphocytes # (Manual) 1.4 K/mm3 (1.2-5.4) 11/01/19 05:30 Abs React Lymphs (Man) 0.0 K/mm3 11/01/19 05:30 Monocytes # (Manual) 0.9 K/mm3 (0.0-0.8) H 11/01/19 05:30 Eosinophils # (Manual) 0.1 K/mm3 (0.0-0.4) 11/01/19 05:30 Basophils # (Manual) 0.0 K/mm3 (0.0-0.1) 11/01/19 05:30 Metamyelocytes # 0.1 K/mm3 11/01/19 05:30 Myelocytes # 0.0 K/mm3 11/01/19 05:30 Promyelocytes # 0.0 K/mm3 11/01/19 05:30 Blast Cells # 0.0 K/mm3 11/01/19 05:30 WBC Morphology Not Reportable 11/01/19 05:30 Hypersegmented Neuts Not Reportable 11/01/19 05:30 Hyposegmented Neuts Not Reportable 11/01/19 05:30 Hypogranular Neuts Not Reportable 11/01/19 05:30 Smudge Cells Not Reportable 11/01/19 05:30 Toxic Granulation Not Reportable 11/01/19 05:30 Toxic Vacuolation Not Reportable 11/01/19 05:30 Dohle Bodies Not Reportable 11/01/19 05:30 Pelger-Huet Anomaly Not Reportable 11/01/19 05:30 Krista Rods Not Reportable 11/01/19 05:30 Platelet Estimate Consistent w auto 11/01/19 05:30 Clumped Platelets Not Reportable 11/01/19 05:30 Plt Clumps, EDTA Not Reportable 11/01/19 05:30 Large Platelets Not Reportable 11/01/19 05:30 Giant Platelets Not Reportable 11/01/19 05:30 Platelet Satelliting Not Reportable 11/01/19 05:30 Plt Morphology Comment Not Reportable 11/01/19 05:30 RBC Morphology Not Reportable 11/01/19 05:30 Dimorphic RBCs Not Reportable 11/01/19 05:30 Polychromasia Rare 11/01/19 05:30 Hypochromasia Not Reportable 11/01/19 05:30 Poikilocytosis Not Reportable 11/01/19 05:30 Anisocytosis 1+ 11/01/19 05:30 Microcytosis Not Reportable 11/01/19 05:30 Macrocytosis Not Reportable 11/01/19 05:30 Spherocytes Not Reportable 11/01/19 05:30 Pappenheimer Bodies Not Reportable 11/01/19 05:30 Sickle Cells Not Reportable 11/01/19 05:30 Target Cells Not Reportable 11/01/19 05:30 Tear Drop Cells Not Reportable 11/01/19 05:30 Ovalocytes Not Reportable 11/01/19 05:30 Stomatocytes 2+ 11/01/19 05:30 Helmet Cells Not Reportable 11/01/19 05:30 [place] Bodies Not Reportable 11/01/19 05:30 [place] Rings Not Reportable 11/01/19 05:30 [place] Cells Not Reportable 11/01/19 05:30 Bite Cells Not Reportable 11/01/19 05:30 Crenated Cell Not Reportable 11/01/19 05:30 Elliptocytes Not Reportable 11/01/19 05:30 Acanthocytes (Spur) Not Reportable 11/01/19 05:30 Rouleaux Not Reportable 11/01/19 05:30 Hemoglobin C Crystals Not Reportable 11/01/19 05:30 Schistocytes Not Reportable 11/01/19 05:30 Malaria parasites Not Reportable 11/01/19 05:30 Alejandro Bodies Not Reportable 11/01/19 05:30 Hem Pathologist Commnt No 11/01/19 05:30 POC ABG pH 7.522 (7.35-7.45) H 11/02/19 23:02 ABG pH 7.419 pH Units (7.350-7.450) 11/01/19 04:25 POC ABG pCO2 50.0 (35-45) H 11/02/19 23:02 ABG pCO2 60.3 mm Hg 11/01/19 04:25 POC ABG pO2 71 (80-105) L 11/02/19 23:02 ABG pO2 67.0 mm Hg (80.0-90.0) L 11/01/19 04:25 POC ABG HCO3 41.0 (22-26 mml/L) 11/02/19 23:02 ABG HCO3 38.2 mmol/L (20.0-26.0) H 11/01/19 04:25 POC ABG Total CO2 42 (23-27mmol/L) 11/02/19 23:02 POC ABG O2 Sat 95 11/02/19 23:02 ABG O2 Saturation 94.2 % (95.0-99.0) L 11/01/19 04:25 ABG O2 Content 13.8 (0.0-44) 11/01/19 04:25 POC ABG Base Excess 18 ((-2) - (+3)mmol/L) 11/02/19 23:02 ABG Base Excess 11.8 mmol/L (-2.0-3.0) H 11/01/19 04:25 ABG Hemoglobin 10.7 gm/dl (12.0-16.0) L 11/01/19 04:25 ABG Carboxyhemoglobin 2.3 % (0.0-5.0) 11/01/19 04:25 ABG Methemoglobin 0.5 % (0.0-1.5) 11/01/19 04:25 Oxyhemoglobin 91.6 % (95.0-99.0) L 11/01/19 04:25 FiO2 50 % 11/02/19 23:02 Sodium 141 mmol/L (137-145) 11/05/19 04:22 Potassium 3.4 mmol/L (3.6-5.0) L 11/05/19 04:22 Chloride 97.4 mmol/L (98-107) L 11/05/19 04:22 Carbon Dioxide 31 mmol/L (22-30) H 11/05/19 04:22 Anion Gap 16 mmol/L 11/05/19 04:22 BUN 11 mg/dL (7-17) 11/05/19 04:22 Creatinine 0.4 mg/dL (0.7-1.2) L 11/05/19 04:22 Estimated GFR > 60 ml/min 11/05/19 04:22 BUN/Creatinine Ratio 28 % 11/05/19 04:22 Glucose 110 mg/dL (65-100) H 11/05/19 04:22 POC Glucose 126 (70-105) H 11/02/19 22:46 Calcium 8.7 mg/dL (8.4-10.2) 11/05/19 04:22 Total Bilirubin 0.20 mg/dL (0.1-1.2) 10/17/19 20:57 AST 57 units/L (5-40) H 10/17/19 20:57 ALT 22 units/L (7-56) 10/17/19 20:57 Alkaline Phosphatase 67 units/L (35-129) 10/17/19 20:57 Total Creatine Kinase 72 units/L (30-135) 10/30/19 09:54 CK-MB (CK-2) < 1.0 ng/mL (0.0-4.0) 10/30/19 09:54 CK-MB (CK-2) Rel Index 1.3 (0-4) 10/30/19 09:54 Troponin T < 0.010 ng/mL (0.00-0.029) 10/30/19 09:54 NT-Pro-B Natriuret Pep 317.6 pg/mL (0-450) 10/17/19 20:57 Total Protein 7.1 g/dL (6.3-8.2) 10/17/19 20:57 Albumin 3.0 g/dL (3.9-5) L 10/17/19 20:57 Albumin/Globulin Ratio 0.7 % 10/17/19 20:57 Triglycerides 279 mg/dL (2-149) H 10/27/19 05:40 Procalcitonin 0.06 ng/mL (<0.15) 10/20/19 14:51 Influenza A (Rapid) Positive (Negative) A 10/17/19 Unknown Influenza B (Rapid) Negative (Negative) 10/17/19 Unknown Active Medications - Current Medications Current Medications: Generic Name Dose Route Start Last Admin Trade Name Freq PRN Reason Stop Dose Admin Acetaminophen 650 mg 10/27/19 08:38 11/02/19 08:46 Tylenol PO 650 mg Q4H PRN Administration Non Cardiac Pain or Temp>100.5 Acetaminophen/Hydrocodone Bitart 1 each 11/04/19 17:28 11/04/19 18:23 [place] 5/325 PO 1 each Q6H PRN Administration Pain, Moderate (4-6) Albuterol 2.5 mg 10/17/19 22:47 10/19/19 14:34 Proventil IH 2.5 mg Q3HRT PRN Administration Shortness Of Breath Albuterol/Ipratropium 1 ampul 10/19/19 20:00 11/05/19 08:10 Duoneb *Not For Prn Use* IH 1 ampul TIDRT EDI Administration Carvedilol 6.25 mg 11/04/19 13:00 11/05/19 09:41 Coreg PO Not Given BID EDI Heparin Sodium (Porcine) 5,000 unit 10/18/19 06:00 11/05/19 05:36 Heparin SUB-Q 5,000 unit Q8HR EDI Administration Hydrophilic Ointment 1 applic 10/23/19 17:29 10/27/19 00:29 Vaseline Lip Therapy TP 1 applic Q2HR PRN Administration Dry Lips Cefepime HCl 6 gm/ Sodium 250 mls @ 10.417 mls/hr 10/31/19 14:00 11/04/19 15:30 Chloride IV 11/08/19 13:59 10.417 mls/hr Q24H EDI Administration Dextrose 1,000 mls @ 75 mls/hr 11/04/19 09:00 11/05/19 04:16 D5w IV 75 mls/hr DIRECT EDI Administration Labetalol HCl 10 mg 10/24/19 14:32 Labetalol IV Q4H PRN Blood Pressure Magnesium Hydroxide 30 ml 10/30/19 10:04 10/30/19 10:48 Milk Of Magnesia PO 30 ml Q4H PRN Administration INDIGESTION Multi-Ingred Cream/Lotion/Oil/Oint 1 applic 10/23/19 17:29 Artificial Tears Ophth Oint OU Q4HR PRN Dry Eye(s) Ondansetron HCl 4 mg 10/17/19 22:47 10/29/19 02:45 Zofran IV 4 mg Q8H PRN Administration Nausea And Vomiting Pantoprazole Sodium 40 mg 11/03/19 10:00 11/05/19 09:41 Protonix PO 40 mg DAILY EDI Administration Sodium Chloride 10 ml 10/18/19 10:00 11/05/19 09:42 Sodium Chloride Flush Syringe 10 Ml IV 10 ml BID EDI Administration Sodium Chloride 10 ml 10/17/19 22:47 Sodium Chloride Flush Syringe 10 Ml IV PRN PRN LINE FLUSH Tamsulosin HCl 0.4 mg 10/30/19 11:00 11/05/19 09:41 Flomax PO 0.4 mg QDAY EDI Administration Nutrition/Malnutrition Assess - Dietary Evaluation Nutrition/Malnutrition Findings: Nutrition Notes Start: 10/19/19 13:20 Freq: Status: Active Protocol: Document 11/05/19 11:10 KS (Rec: 11/05/19 11:19 KS [id number]) Co-Sign 11/05/19 11:10 LP Nutrition Notes Initial or Follow up Reassessment Current Diagnosis Hypertension,Respiratory Failure Other Pertinent Diagnosis Influlenza A pneumonia, lymphedema, pulmonary edema, SOB, DVT Current Diet Cardiac Diet Labs/Tests K 3.4 Cr 0.4 BG 110 Pertinent Medications D5w at 75mL/hr Height 5 ft 6 in Weight 233.6 kg [place] Body Weight (kg) 59.09 BMI 83.1 Subjective/Other Information Pt states appetite remains decreased. Reports eating 30- 50% of meals with no NVD. Percent of energy/protein needs met: 57%/36% Burn Absent Trauma Absent Current % PO Fair (50-74%) Minimum of two criteria No #2 Nutrition Diagnosis Inadequate oral intake Diagnosis Progress(for reassessment Continues documentation) Is patient on ventilator? No Is Patient Ambulatory and/or Out of Bed No REE-([facility]-confined to bed) 3581.100 Kcal/Kg value to use for calculation 8 Approximate Energy Requirements Using 1869 kcal/Kg Calculation Used for Recommendations Kcal/kg Additional Notes Protein needs: 117-146 g/kg/ day (0.8-1 g/kg/day AdBW 146 kg) Fluid: 1 ml/kcal Nutrition Intervention Change Diet Order: Cardiac Diet Goal #1 Meet at least 75% of energy and protein needs Anticipated Discharge Needs: Cardiac diet Follow-Up By: 11/10/19 Additional Comments Follow up for PO intakes, possible ONS
--- NOTE | 2019-11-05 12:56 | Progress Note ---
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 Functional quadriplegia h/o HTN - Advance diet per [employer] team - s/p cardiology evaluation for CHF (continue medical therapy) - follow Baeza-cultures (Trend fevers with symptom management/cooling measures) - s/p completed anti-viral therapy, on antibiotics per ID service (cefepime; sputum grew enterobacter spp.) - continue mobility protocol, off loading for pressure ulcer prevention- high risk patient - continue Aspiration precautions, HOB>40 degrees - Wean FIO2 for O2 sats 88-90% - continue BIPAP scheduled qhs - continue bronchodilators with pulmonary hygiene per RT & per protocol - Continue with VTE prophylaxis - Continue stress ulcer prophylaxis - Continue with Accuchecks with glycemic control for SSI (While critically ill target blood glucose of 140-180 mg/dL; avoid hypoglycemia) - Continue to monitor hemodynamics closely - Continue to monitor electrolyte profile closely and replete as indicated - Chronic home medications, resume as clinically indicated - PT/OT - Weight loss and life style modifications on discharge. May need surgical bariatric intervention (discussed this with her and her sister- patient currently does not have health insurance but has applied) - Out patient evaluation for sleep apnea CONDITION: STABLE PROGNOSIS: IMPROVED CODE STATUS: FULL CODE Subjective Date of service: 11/05/19 Principal diagnosis: Ac. hypoxic-hypercapnic resp failure; Influenza; extreme obesity; ? DEAN Interval history: Patient is seen today for: Acute hypoxic-hypercapnic respiratory failure; influenza infection; extreme obesity; probable DEAN Seen and examined at bedside; 24hour events reviewed; nursing and respiratory care staff consulted; no adverse overnight events reported to me; resting peacefully in bed; sleeping at time of my exam; remains on supplemental oxygen; no emesis or overt aspiration Objective Vital Signs - 12hr 11/05/19 11/05/19 11/05/19 05:45 09:41 09:48 Temperature 97.9 F Pulse Rate 81 89 Respiratory 20 Rate Blood Pressure 136/66 125/62 125/62 O2 Sat by Pulse 96 Oximetry 11/05/19 11:40 Temperature 98.7 F Pulse Rate 86 Respiratory 22 Rate Blood Pressure 111/54 O2 Sat by Pulse 95 Oximetry Constitutional: no acute distress, alert, other (morbidly obese middle aged CF with mildly increased resp effort at rest) Eyes: non-icteric ENT: oropharynx moist Neck: supple, no lymphadenopathy, no JVD, other (short neck, large circumference) Effort: mildly labored Ascultation: Bilateral: diminished breath sounds, rhonchi Percussion: Bilateral: not dull Cardiovascular: regular rate and rhythm, other (S1,S2) Gastrointestinal: normoactive bowel sounds, soft, non-tender, non-distended Integumentary: normal Extremities: no cyanosis, no edema, pink and warm, pulses normal Neurologic: normal mental status, non-focal exam (grossly), pupils equal and round, CN II-XII normal, other (weak) Psychiatric: other (sleeping) CBC and BMP: 11/01/19 05:30 11/05/19 04:22 ABG, PT/INR, D-dimer: ABG POC ABG pH 7.522 (7.35-7.45) H 11/02/19 23:02 ABG pH 7.419 pH Units (7.350-7.450) 11/01/19 04:25 POC ABG pCO2 50.0 (35-45) H 11/02/19 23:02 ABG pCO2 60.3 mm Hg 11/01/19 04:25 POC ABG pO2 71 (80-105) L 11/02/19 23:02 ABG pO2 67.0 mm Hg (80.0-90.0) L 11/01/19 04:25 POC ABG HCO3 41.0 (22-26 mml/L) 11/02/19 23:02 POC ABG Total CO2 42 (23-27mmol/L) 11/02/19 23:02 POC ABG O2 Sat 95 11/02/19 23:02 ABG O2 Saturation 94.2 % (95.0-99.0) L 11/01/19 04:25 Abnormal lab findings: Abnormal Labs 10/17/19 10/17/19 10/17/19 20:57 20:57 Unknown WBC 4.0 L RBC Hgb Hct MCV 78 L MCH 25 L RDW 24.7 H Lymph % (Auto) Sac % (Auto) Lymph # Seg Neutrophils % Seg Neuts % (Manual) 77.0 H Monocytes % (Manual) 9.0 H Lymphocytes # (Manual) 0.6 L Monocytes # (Manual) POC ABG pH ABG pH POC ABG pCO2 POC ABG pO2 ABG pO2 ABG HCO3 ABG O2 Saturation ABG Base Excess ABG Hemoglobin Oxyhemoglobin Sodium Potassium 3.5 L Chloride Carbon Dioxide BUN Creatinine 0.6 L Glucose 147 H POC Glucose Calcium 7.9 L AST 57 H Total Creatine Kinase 857 H Albumin 3.0 L Triglycerides Influenza A (Rapid) Positive A 10/18/19 10/18/19 10/18/19 05:21 05:21 09:19 WBC 3.3 L RBC Hgb Hct MCV MCH 25 L RDW 24.3 H Lymph % (Auto) 12.5 L Sac % (Auto) 7.9 H Lymph # 0.4 L Seg Neutrophils % 78.6 H Seg Neuts % (Manual) Monocytes % (Manual) Lymphocytes # (Manual) Monocytes # (Manual) POC ABG pH ABG pH POC ABG pCO2 POC ABG pO2 ABG pO2 131.3 H ABG HCO3 30.2 H ABG O2 Saturation ABG Base Excess 4.5 H ABG Hemoglobin 10.7 L Oxyhemoglobin Sodium Potassium Chloride Carbon Dioxide BUN Creatinine Glucose 167 H POC Glucose Calcium 8.3 L AST Total Creatine Kinase Albumin Triglycerides Influenza A (Rapid) 10/18/19 10/18/19 10/19/19 11:28 18:27 06:39 WBC RBC Hgb Hct MCV MCH RDW Lymph % (Auto) Sac % (Auto) Lymph # Seg Neutrophils % Seg Neuts % (Manual) Monocytes % (Manual) Lymphocytes # (Manual) Monocytes # (Manual) POC ABG pH 7.461 H 7.487 H ABG pH POC ABG pCO2 53.4 H 52.8 H 51.7 H POC ABG pO2 70 L 71 L ABG pO2 ABG HCO3 ABG O2 Saturation ABG Base Excess ABG Hemoglobin Oxyhemoglobin Sodium Potassium Chloride Carbon Dioxide BUN Creatinine Glucose POC Glucose Calcium AST Total Creatine Kinase Albumin Triglycerides Influenza A (Rapid) 10/19/19 10/20/19 10/20/19 23:25 05:31 09:08 WBC RBC Hgb Hct MCV MCH RDW Lymph % (Auto) Sac % (Auto) Lymph # Seg Neutrophils % Seg Neuts % (Manual) Monocytes % (Manual) Lymphocytes # (Manual) Monocytes # (Manual) POC ABG pH ABG pH POC ABG pCO2 POC ABG pO2 ABG pO2 ABG HCO3 ABG O2 Saturation ABG Base Excess ABG Hemoglobin Oxyhemoglobin Sodium Potassium Chloride Carbon Dioxide BUN Creatinine Glucose POC Glucose 203 H 144 H 163 H Calcium AST Total Creatine Kinase Albumin Triglycerides Influenza A (Rapid) 10/20/19 10/20/19 10/20/19 10:25 13:22 14:51 WBC RBC Hgb Hct MCV MCH RDW Lymph % (Auto) Sac % (Auto) Lymph # Seg Neutrophils % Seg Neuts % (Manual) Monocytes % (Manual) Lymphocytes # (Manual) Monocytes # (Manual) POC ABG pH 7.632 H ABG pH POC ABG pCO2 POC ABG pO2 74 L ABG pO2 ABG HCO3 ABG O2 Saturation ABG Base Excess ABG Hemoglobin Oxyhemoglobin Sodium 147 H Potassium Chloride Carbon Dioxide 31 H BUN Creatinine 0.5 L Glucose 154 H POC Glucose 178 H Calcium 8.2 L AST Total Creatine Kinase Albumin Triglycerides Influenza A (Rapid) 10/20/19 10/20/19 10/20/19 14:51 17:16 21:30 WBC 11.2 H RBC Hgb Hct MCV 78 L MCH 25 L RDW 23.9 H Lymph % (Auto) Sac % (Auto) Lymph # Seg Neutrophils % Seg Neuts % (Manual) Monocytes % (Manual) Lymphocytes # (Manual) Monocytes # (Manual) POC ABG pH ABG pH POC ABG pCO2 POC ABG pO2 ABG pO2 ABG HCO3 ABG O2 Saturation ABG Base Excess ABG Hemoglobin Oxyhemoglobin Sodium Potassium Chloride Carbon Dioxide BUN Creatinine Glucose POC Glucose 143 H 152 H Calcium AST Total Creatine Kinase Albumin Triglycerides Influenza A (Rapid) 10/20/19 10/21/19 10/21/19 22:52 05:55 08:27 WBC RBC Hgb Hct MCV MCH RDW Lymph % (Auto) Sac % (Auto) Lymph # Seg Neutrophils % Seg Neuts % (Manual) Monocytes % (Manual) Lymphocytes # (Manual) Monocytes # (Manual) POC ABG pH ABG pH POC ABG pCO2 POC ABG pO2 ABG pO2 ABG HCO3 ABG O2 Saturation ABG Base Excess ABG Hemoglobin Oxyhemoglobin Sodium Potassium Chloride Carbon Dioxide BUN Creatinine Glucose POC Glucose 179 H 115 H 131 H Calcium AST Total Creatine Kinase Albumin Triglycerides Influenza A (Rapid) 01/01/20 01/01/20 01/01/20 11:52 16:23 23:38 WBC RBC Hgb Hct MCV MCH RDW Lymph % (Auto) Sac % (Auto) Lymph # Seg Neutrophils % Seg Neuts % (Manual) Monocytes % (Manual) Lymphocytes # (Manual) Monocytes # (Manual) POC ABG pH ABG pH POC ABG pCO2 POC ABG pO2 ABG pO2 ABG HCO3 ABG O2 Saturation ABG Base Excess ABG Hemoglobin Oxyhemoglobin Sodium Potassium Chloride Carbon Dioxide BUN Creatinine Glucose POC Glucose 122 H 120 H 115 H Calcium AST Total Creatine Kinase Albumin Triglycerides Influenza A (Rapid) 10/22/19 10/22/19 10/22/19 00:35 05:19 06:10 WBC RBC Hgb Hct MCV MCH 25 L RDW 22.8 H Lymph % (Auto) Sac % (Auto) Lymph # Seg Neutrophils % Seg Neuts % (Manual) Monocytes % (Manual) Lymphocytes # (Manual) Monocytes # (Manual) POC ABG pH ABG pH 7.520 H POC ABG pCO2 POC ABG pO2 ABG pO2 64.4 L ABG HCO3 36.8 H ABG O2 Saturation ABG Base Excess 12.6 H ABG Hemoglobin 10.4 L Oxyhemoglobin Sodium Potassium Chloride Carbon Dioxide BUN Creatinine Glucose POC Glucose 108 H Calcium AST Total Creatine Kinase Albumin Triglycerides Influenza A (Rapid) 10/22/19 10/24/19 10/25/19 15:40 05:49 04:20 WBC RBC Hgb Hct MCV MCH RDW Lymph % (Auto) Sac % (Auto) Lymph # Seg Neutrophils % Seg Neuts % (Manual) Monocytes % (Manual) Lymphocytes # (Manual) Monocytes # (Manual) POC ABG pH 7.454 H ABG pH POC ABG pCO2 64.1 H 63.5 H POC ABG pO2 73 L ABG pO2 ABG HCO3 ABG O2 Saturation ABG Base Excess ABG Hemoglobin Oxyhemoglobin Sodium 136 L D Potassium Chloride 97.6 L Carbon Dioxide BUN 19 H Creatinine Glucose 125 H POC Glucose Calcium AST Total Creatine Kinase Albumin Triglycerides Influenza A (Rapid) 10/25/19 10/25/19 10/26/19 05:35 05:35 04:19 WBC RBC Hgb 10.0 L Hct MCV MCH 25 L RDW 22.0 H Lymph % (Auto) Sac % (Auto) Lymph # Seg Neutrophils % Seg Neuts % (Manual) Monocytes % (Manual) Lymphocytes # (Manual) Monocytes # (Manual) POC ABG pH ABG pH POC ABG pCO2 66.1 H POC ABG pO2 75 L ABG pO2 ABG HCO3 ABG O2 Saturation ABG Base Excess ABG Hemoglobin Oxyhemoglobin Sodium 147 H D Potassium Chloride Carbon Dioxide 34 H D BUN 23 H Creatinine 0.5 L Glucose 184 H POC Glucose Calcium AST Total Creatine Kinase Albumin Triglycerides Influenza A (Rapid) 10/26/19 10/26/19 10/26/19 05:20 05:20 12:44 WBC RBC Hgb 9.5 L Hct MCV MCH 25 L RDW 22.3 H Lymph % (Auto) Sac % (Auto) Lymph # Seg Neutrophils % Seg Neuts % (Manual) Monocytes % (Manual) Lymphocytes # (Manual) Monocytes # (Manual) POC ABG pH 7.501 H ABG pH POC ABG pCO2 54.7 H POC ABG pO2 69 L ABG pO2 ABG HCO3 ABG O2 Saturation ABG Base Excess ABG Hemoglobin Oxyhemoglobin Sodium 152 H Potassium Chloride Carbon Dioxide 33 H BUN 27 H Creatinine 0.6 L Glucose 135 H POC Glucose Calcium AST Total Creatine Kinase Albumin Triglycerides Influenza A (Rapid) 10/27/19 10/27/19 10/27/19 03:30 05:40 05:40 WBC RBC 3.62 L Hgb 9.4 L Hct 29.1 L MCV MCH 26 L RDW 21.7 H Lymph % (Auto) Sac % (Auto) Lymph # Seg Neutrophils % Seg Neuts % (Manual) Monocytes % (Manual) Lymphocytes # (Manual) Monocytes # (Manual) POC ABG pH ABG pH 7.472 H POC ABG pCO2 POC ABG pO2 ABG pO2 ABG HCO3 38.2 H ABG O2 Saturation ABG Base Excess 13.3 H ABG Hemoglobin 6.5 L Oxyhemoglobin Sodium 149 H Potassium 3.3 L Chloride Carbon Dioxide 31 H BUN 25 H Creatinine 0.5 L Glucose 142 H POC Glucose Calcium 8.2 L AST Total Creatine Kinase Albumin Triglycerides Influenza A (Rapid) 10/27/19 10/28/19 10/28/19 05:40 05:19 05:56 WBC RBC Hgb Hct MCV MCH RDW Lymph % (Auto) Sac % (Auto) Lymph # Seg Neutrophils % Seg Neuts % (Manual) Monocytes % (Manual) Lymphocytes # (Manual) Monocytes # (Manual) POC ABG pH 7.489 H ABG pH POC ABG pCO2 51.0 H POC ABG pO2 71 L ABG pO2 ABG HCO3 ABG O2 Saturation ABG Base Excess ABG Hemoglobin Oxyhemoglobin Sodium 153 H Potassium Chloride Carbon Dioxide 31 H BUN Creatinine 0.4 L Glucose 111 H POC Glucose Calcium 8.1 L AST Total Creatine Kinase Albumin Triglycerides 279 H Influenza A (Rapid) 10/29/19 10/29/19 10/30/19 03:54 04:21 04:48 WBC RBC Hgb Hct MCV MCH RDW Lymph % (Auto) Sac % (Auto) Lymph # Seg Neutrophils % Seg Neuts % (Manual) Monocytes % (Manual) Lymphocytes # (Manual) Monocytes # (Manual) POC ABG pH 7.506 H 7.508 H ABG pH POC ABG pCO2 53.6 H 49.6 H POC ABG pO2 ABG pO2 ABG HCO3 ABG O2 Saturation ABG Base Excess ABG Hemoglobin Oxyhemoglobin Sodium 150 H Potassium Chloride Carbon Dioxide BUN Creatinine 0.4 L Glucose 137 H POC Glucose Calcium AST Total Creatine Kinase Albumin Triglycerides Influenza A (Rapid) 10/30/19 10/30/19 10/31/19 09:54 21:08 00:17 WBC RBC Hgb Hct MCV MCH RDW Lymph % (Auto) Sac % (Auto) Lymph # Seg Neutrophils % Seg Neuts % (Manual) Monocytes % (Manual) Lymphocytes # (Manual) Monocytes # (Manual) POC ABG pH 7.455 H ABG pH POC ABG pCO2 58.6 H POC ABG pO2 74 L ABG pO2 ABG HCO3 ABG O2 Saturation ABG Base Excess ABG Hemoglobin Oxyhemoglobin Sodium 148 H Potassium Chloride Carbon Dioxide BUN Creatinine 0.4 L Glucose 156 H POC Glucose 160 H Calcium AST Total Creatine Kinase Albumin Triglycerides Influenza A (Rapid) 10/31/19 10/31/19 10/31/19 04:42 08:02 16:24 WBC RBC Hgb Hct MCV MCH RDW Lymph % (Auto) Sac % (Auto) Lymph # Seg Neutrophils % Seg Neuts % (Manual) Monocytes % (Manual) Lymphocytes # (Manual) Monocytes # (Manual) POC ABG pH ABG pH POC ABG pCO2 62.2 H POC ABG pO2 76 L ABG pO2 ABG HCO3 ABG O2 Saturation ABG Base Excess ABG Hemoglobin Oxyhemoglobin Sodium 149 H Potassium Chloride Carbon Dioxide BUN Creatinine 0.4 L Glucose 146 H POC Glucose 143 H Calcium AST Total Creatine Kinase Albumin Triglycerides Influenza A (Rapid) 11/01/19 11/01/19 11/01/19 04:25 05:30 05:30 WBC RBC Hgb 9.7 L Hct 30.1 L MCV MCH 26 L RDW 21.6 H Lymph % (Auto) Sac % (Auto) Lymph # Seg Neutrophils % Seg Neuts % (Manual) Monocytes % (Manual) 10.0 H Lymphocytes # (Manual) Monocytes # (Manual) 0.9 H POC ABG pH ABG pH POC ABG pCO2 POC ABG pO2 ABG pO2 67.0 L ABG HCO3 38.2 H ABG O2 Saturation 94.2 L ABG Base Excess 11.8 H ABG Hemoglobin 10.7 L Oxyhemoglobin 91.6 L Sodium 147 H Potassium Chloride Carbon Dioxide 31 H BUN Creatinine 0.4 L Glucose 136 H POC Glucose Calcium AST Total Creatine Kinase Albumin Triglycerides Influenza A (Rapid) 11/01/19 11/02/19 11/02/19 10:32 22:46 23:02 WBC RBC Hgb Hct MCV MCH RDW Lymph % (Auto) Sac % (Auto) Lymph # Seg Neutrophils % Seg Neuts % (Manual) Monocytes % (Manual) Lymphocytes # (Manual) Monocytes # (Manual) POC ABG pH 7.465 H 7.522 H ABG pH POC ABG pCO2 56.8 H 50.0 H POC ABG pO2 71 L ABG pO2 ABG HCO3 ABG O2 Saturation ABG Base Excess ABG Hemoglobin Oxyhemoglobin Sodium Potassium Chloride Carbon Dioxide BUN Creatinine Glucose POC Glucose 126 H Calcium AST Total Creatine Kinase Albumin Triglycerides Influenza A (Rapid) 11/04/19 11/05/19 05:57 04:22 WBC RBC Hgb Hct MCV MCH RDW Lymph % (Auto) Sac % (Auto) Lymph # Seg Neutrophils % Seg Neuts % (Manual) Monocytes % (Manual) Lymphocytes # (Manual) Monocytes # (Manual) POC ABG pH ABG pH POC ABG pCO2 POC ABG pO2 ABG pO2 ABG HCO3 ABG O2 Saturation ABG Base Excess ABG Hemoglobin Oxyhemoglobin Sodium 148 H Potassium 3.1 L 3.4 L Chloride 97.4 L Carbon Dioxide 34 H 31 H BUN Creatinine 0.5 L 0.4 L Glucose 128 H 110 H POC Glucose Calcium AST Total Creatine Kinase Albumin Triglycerides Influenza A (Rapid) Allied health notes reviewed: RT
[2019-11-05] MEDS: SODIUM CHLORIDE 0.9% IV SCH (14:06)
[2019-11-05] MEDS: CEFEPIME IV SCH (14:06)
[2019-11-06] MEDS: HEPARIN 5,000 UNIT/1 ML VIAL SUB-Q SCH ×3 (06:10→21:44)
[2019-11-06] MEDS: DEXTROSE 5% IN WATER 1,000 ML IV SCH (06:10)
[2019-11-06] MEDS: IPRATROPIUM/ALBUTEROL SULFATE 3 ML AMPUL.NEB IH SCH ×3 (07:25→21:33)
--- NOTE | 2019-11-06 10:48 | Progress Note ---
Assessment and Plan Assessment and plan: Acute hypoxemic respiratory failure. Respiratory/tracheal aspirate reveals Enterobacter. The patient failed BiPAP and required intubation on 10/23/2019. Patient now extubated. Pulmonary following. Sepsis. Etiology secondary to pneumonia/influenza A. Continue antibiotics per ID. Influenza A. Completed high dose prolonged Tamiflu course. Bilateral pneumonia. resp culture with GNR, patient on Cefepime. Acute on chronic diastolic heart failure. Echocardiogram revealed The left ventricular size is mildly dilated, mild to moderate concentric LVH, est EF 40- 45%, left atrium is mildly dilated, trace MR, mild TR, mild to moderate Pulmonary hypertension, RVSP is calculated at 42 mmHg. Obesity hypoventilation syndrome/DEAN. Outpatient evaluation for sleep apnea Morbid obesity. BMI is 83. Weight loss and life style modifications on discharge. May need surgical bariatric intervention Agitation on and off. calm today CT head could not be done because of body habitus. Debility PT eval ongoing Hopefully dc soon. History Interval history: Agitated on and off Dizziness on sitting up Generalized weakness Hospitalist Physical - Physical exam Narrative exam: GEN: Not in acute distress, lying in bed, morbidly obese HEENT: Normocephalic, atraumatic, Neck: supple, No JVD Lungs: Clear to auscultation bilaterally, no wheeze, heart;S1 and S2 reg, no murmurs Abd:soft, non tender, non distended, normal bowel sounds Ext: No edema, no clubbing, no cyanosis Neuro: AAO X 3, no focal neurological signs, moves all ext - Constitutional Vitals: Temp Pulse Resp BP Pulse Ox 98.3 F 89 20 104/56 96 11/06/19 05:00 11/06/19 07:26 11/06/19 07:26 11/06/19 05:00 11/06/19 07:24 General appearance: Present: obese Results - Labs CBC & Chem 7: 11/01/19 05:30 11/05/19 04:22 Labs: Laboratory Last Values WBC 8.5 K/mm3 (4.5-11.0) 11/01/19 05:30 RBC 3.67 M/mm3 (3.65-5.03) 11/01/19 05:30 Hgb 9.7 gm/dl (10.1-14.3) L 11/01/19 05:30 Hct 30.1 % (30.3-42.9) L 11/01/19 05:30 MCV 82 fl (79-97) 11/01/19 05:30 MCH 26 pg (28-32) L 11/01/19 05:30 MCHC 32 % (30-34) 11/01/19 05:30 RDW 21.6 % (13.2-15.2) H 11/01/19 05:30 Plt Count 356 K/mm3 (140-440) 11/01/19 05:30 Lymph % (Auto) 12.5 % (13.4-35.0) L 10/18/19 05:21 [place] % (Auto) 7.9 % (0.0-7.3) H 10/18/19 05:21 Eos % (Auto) 0.0 % (0.0-4.3) 10/18/19 05:21 Baso % (Auto) 1.0 % (0.0-1.8) 10/18/19 05:21 Lymph # 0.4 K/mm3 (1.2-5.4) L 10/18/19 05:21 [place] # 0.3 K/mm3 (0.0-0.8) 10/18/19 05:21 Eos # 0.0 K/mm3 (0.0-0.4) 10/18/19 05:21 Baso # 0.0 K/mm3 (0.0-0.1) 10/18/19 05:21 Add Manual Diff Complete 11/01/19 05:30 Total Counted 100 11/01/19 05:30 Seg Neutrophils % 78.6 % (40.0-70.0) H 10/18/19 05:21 Seg Neuts % (Manual) 70.0 % (40.0-70.0) 11/01/19 05:30 Band Neutrophils % 1.0 % 11/01/19 05:30 Lymphocytes % (Manual) 17.0 % (13.4-35.0) 11/01/19 05:30 Reactive Lymphs % (Man) 0 % 11/01/19 05:30 Monocytes % (Manual) 10.0 % (0.0-7.3) H 11/01/19 05:30 Eosinophils % (Manual) 1.0 % (0.0-4.3) 11/01/19 05:30 Basophils % (Manual) 0 % (0.0-1.8) 11/01/19 05:30 Metamyelocytes % 1.0 % 11/01/19 05:30 Myelocytes % 0 % 11/01/19 05:30 Promyelocytes % 0 % 11/01/19 05:30 Blast Cells % 0 % 11/01/19 05:30 Nucleated RBC % Not Reportable 11/01/19 05:30 Seg Neutrophils # 2.6 K/mm3 (1.8-7.7) 10/18/19 05:21 Seg Neutrophils # Man 6.0 K/mm3 (1.8-7.7) 11/01/19 05:30 Band Neutrophils # 0.1 K/mm3 11/01/19 05:30 Lymphocytes # (Manual) 1.4 K/mm3 (1.2-5.4) 11/01/19 05:30 Abs React Lymphs (Man) 0.0 K/mm3 11/01/19 05:30 Monocytes # (Manual) 0.9 K/mm3 (0.0-0.8) H 11/01/19 05:30 Eosinophils # (Manual) 0.1 K/mm3 (0.0-0.4) 11/01/19 05:30 Basophils # (Manual) 0.0 K/mm3 (0.0-0.1) 11/01/19 05:30 Metamyelocytes # 0.1 K/mm3 11/01/19 05:30 Myelocytes # 0.0 K/mm3 11/01/19 05:30 Promyelocytes # 0.0 K/mm3 11/01/19 05:30 Blast Cells # 0.0 K/mm3 11/01/19 05:30 WBC Morphology Not Reportable 11/01/19 05:30 Hypersegmented Neuts Not Reportable 11/01/19 05:30 Hyposegmented Neuts Not Reportable 11/01/19 05:30 Hypogranular Neuts Not Reportable 11/01/19 05:30 Smudge Cells Not Reportable 11/01/19 05:30 Toxic Granulation Not Reportable 11/01/19 05:30 Toxic Vacuolation Not Reportable 11/01/19 05:30 Dohle Bodies Not Reportable 11/01/19 05:30 Pelger-Huet Anomaly Not Reportable 11/01/19 05:30 Krista Rods Not Reportable 11/01/19 05:30 Platelet Estimate Consistent w auto 11/01/19 05:30 Clumped Platelets Not Reportable 11/01/19 05:30 Plt Clumps, EDTA Not Reportable 11/01/19 05:30 Large Platelets Not Reportable 11/01/19 05:30 Giant Platelets Not Reportable 11/01/19 05:30 Platelet Satelliting Not Reportable 11/01/19 05:30 Plt Morphology Comment Not Reportable 11/01/19 05:30 RBC Morphology Not Reportable 11/01/19 05:30 Dimorphic RBCs Not Reportable 11/01/19 05:30 Polychromasia Rare 11/01/19 05:30 Hypochromasia Not Reportable 11/01/19 05:30 Poikilocytosis Not Reportable 11/01/19 05:30 Anisocytosis 1+ 11/01/19 05:30 Microcytosis Not Reportable 11/01/19 05:30 Macrocytosis Not Reportable 11/01/19 05:30 Spherocytes Not Reportable 11/01/19 05:30 Pappenheimer Bodies Not Reportable 11/01/19 05:30 Sickle Cells Not Reportable 11/01/19 05:30 Target Cells Not Reportable 11/01/19 05:30 Tear Drop Cells Not Reportable 11/01/19 05:30 Ovalocytes Not Reportable 11/01/19 05:30 Stomatocytes 2+ 11/01/19 05:30 Helmet Cells Not Reportable 11/01/19 05:30 Gallagher-Penton Bodies Not Reportable 11/01/19 05:30 [place] Rings Not Reportable 11/01/19 05:30 [place] Cells Not Reportable 11/01/19 05:30 Bite Cells Not Reportable 11/01/19 05:30 Crenated Cell Not Reportable 11/01/19 05:30 Elliptocytes Not Reportable 11/01/19 05:30 Acanthocytes (Spur) Not Reportable 11/01/19 05:30 Rouleaux Not Reportable 11/01/19 05:30 Hemoglobin C Crystals Not Reportable 11/01/19 05:30 Schistocytes Not Reportable 11/01/19 05:30 Malaria parasites Not Reportable 11/01/19 05:30 Alejandro Bodies Not Reportable 11/01/19 05:30 Hem Pathologist Commnt No 11/01/19 05:30 POC ABG pH 7.522 (7.35-7.45) H 11/02/19 23:02 ABG pH 7.419 pH Units (7.350-7.450) 11/01/19 04:25 POC ABG pCO2 50.0 (35-45) H 11/02/19 23:02 ABG pCO2 60.3 mm Hg 11/01/19 04:25 POC ABG pO2 71 (80-105) L 11/02/19 23:02 ABG pO2 67.0 mm Hg (80.0-90.0) L 11/01/19 04:25 POC ABG HCO3 41.0 (22-26 mml/L) 11/02/19 23:02 ABG HCO3 38.2 mmol/L (20.0-26.0) H 11/01/19 04:25 POC ABG Total CO2 42 (23-27mmol/L) 11/02/19 23:02 POC ABG O2 Sat 95 11/02/19 23:02 ABG O2 Saturation 94.2 % (95.0-99.0) L 11/01/19 04:25 ABG O2 Content 13.8 (0.0-44) 11/01/19 04:25 POC ABG Base Excess 18 ((-2) - (+3)mmol/L) 11/02/19 23:02 ABG Base Excess 11.8 mmol/L (-2.0-3.0) H 11/01/19 04:25 ABG Hemoglobin 10.7 gm/dl (12.0-16.0) L 11/01/19 04:25 ABG Carboxyhemoglobin 2.3 % (0.0-5.0) 11/01/19 04:25 ABG Methemoglobin 0.5 % (0.0-1.5) 11/01/19 04:25 Oxyhemoglobin 91.6 % (95.0-99.0) L 11/01/19 04:25 FiO2 50 % 11/02/19 23:02 Sodium 141 mmol/L (137-145) 11/05/19 04:22 Potassium 3.4 mmol/L (3.6-5.0) L 11/05/19 04:22 Chloride 97.4 mmol/L (98-107) L 11/05/19 04:22 Carbon Dioxide 31 mmol/L (22-30) H 11/05/19 04:22 Anion Gap 16 mmol/L 11/05/19 04:22 BUN 11 mg/dL (7-17) 11/05/19 04:22 Creatinine 0.4 mg/dL (0.7-1.2) L 11/05/19 04:22 Estimated GFR > 60 ml/min 11/05/19 04:22 BUN/Creatinine Ratio 28 % 11/05/19 04:22 Glucose 110 mg/dL (65-100) H 11/05/19 04:22 POC Glucose 126 (70-105) H 11/02/19 22:46 Calcium 8.7 mg/dL (8.4-10.2) 11/05/19 04:22 Total Bilirubin 0.20 mg/dL (0.1-1.2) 10/17/19 20:57 AST 57 units/L (5-40) H 10/17/19 20:57 ALT 22 units/L (7-56) 10/17/19 20:57 Alkaline Phosphatase 67 units/L (35-129) 10/17/19 20:57 Total Creatine Kinase 72 units/L (30-135) 10/30/19 09:54 CK-MB (CK-2) < 1.0 ng/mL (0.0-4.0) 10/30/19 09:54 CK-MB (CK-2) Rel Index 1.3 (0-4) 10/30/19 09:54 Troponin T < 0.010 ng/mL (0.00-0.029) 10/30/19 09:54 NT-Pro-B Natriuret Pep 317.6 pg/mL (0-450) 10/17/19 20:57 Total Protein 7.1 g/dL (6.3-8.2) 10/17/19 20:57 Albumin 3.0 g/dL (3.9-5) L 10/17/19 20:57 Albumin/Globulin Ratio 0.7 % 10/17/19 20:57 Triglycerides 279 mg/dL (2-149) H 10/27/19 05:40 Procalcitonin 0.06 ng/mL (<0.15) 10/20/19 14:51 Influenza A (Rapid) Positive (Negative) A 10/17/19 Unknown Influenza B (Rapid) Negative (Negative) 10/17/19 Unknown Active Medications - Current Medications Current Medications: Generic Name Dose Route Start Last Admin Trade Name Freq PRN Reason Stop Dose Admin Acetaminophen 650 mg 10/27/19 08:38 11/02/19 08:46 Tylenol PO 650 mg Q4H PRN Administration Non Cardiac Pain or Temp>100.5 Acetaminophen/Hydrocodone Bitart 1 each 11/04/19 17:28 11/04/19 18:23 [place] 5/325 PO 1 each Q6H PRN Administration Pain, Moderate (4-6) Albuterol 2.5 mg 10/17/19 22:47 10/19/19 14:34 Proventil IH 2.5 mg Q3HRT PRN Administration Shortness Of Breath Albuterol/Ipratropium 1 ampul 10/19/19 20:00 11/06/19 07:25 Duoneb *Not For Prn Use* IH 1 ampul TIDRT EDI Administration Carvedilol 6.25 mg 11/04/19 13:00 11/05/19 22:03 Coreg PO 6.25 mg BID EDI Administration Heparin Sodium (Porcine) 5,000 unit 10/18/19 06:00 11/06/19 06:10 Heparin SUB-Q 5,000 unit Q8HR EDI Administration Hydrophilic Ointment 1 applic 10/23/19 17:29 10/27/19 00:29 Vaseline Lip Therapy TP 1 applic Q2HR PRN Administration Dry Lips Cefepime HCl 6 gm/ Sodium 250 mls @ 10.417 mls/hr 10/31/19 14:00 11/05/19 14:06 Chloride IV 11/08/19 13:59 10.417 mls/hr Q24H EDI Administration Dextrose 1,000 mls @ 75 mls/hr 11/04/19 09:00 11/06/19 06:10 D5w IV 75 mls/hr DIRECT EDI Administration Labetalol HCl 10 mg 10/24/19 14:32 Labetalol IV Q4H PRN Blood Pressure Magnesium Hydroxide 30 ml 10/30/19 10:04 10/30/19 10:48 Milk Of Magnesia PO 30 ml Q4H PRN Administration INDIGESTION Multi-Ingred Cream/Lotion/Oil/Oint 1 applic 10/23/19 17:29 Artificial Tears Ophth Oint OU Q4HR PRN Dry Eye(s) Ondansetron HCl 4 mg 10/17/19 22:47 10/29/19 02:45 Zofran IV 4 mg Q8H PRN Administration Nausea And Vomiting Pantoprazole Sodium 40 mg 11/03/19 10:00 11/05/19 09:41 Protonix PO 40 mg DAILY EDI Administration Sodium Chloride 10 ml 10/18/19 10:00 11/05/19 22:04 Sodium Chloride Flush Syringe 10 Ml IV 10 ml BID EDI Administration Sodium Chloride 10 ml 10/17/19 22:47 Sodium Chloride Flush Syringe 10 Ml IV PRN PRN LINE FLUSH Tamsulosin HCl 0.4 mg 10/30/19 11:00 11/05/19 09:41 Flomax PO 0.4 mg QDAY EDI Administration Nutrition/Malnutrition Assess - Dietary Evaluation Nutrition/Malnutrition Findings: Nutrition Notes Start: 10/19/19 13:20 Freq: Status: Active Protocol: Document 11/05/19 11:10 KS (Rec: 11/05/19 11:19 KS [id number]) Co-Sign 11/05/19 11:10 LP Nutrition Notes Initial or Follow up Reassessment Current Diagnosis Hypertension,Respiratory Failure Other Pertinent Diagnosis Influlenza A pneumonia, lymphedema, pulmonary edema, SOB, DVT Current Diet Cardiac Diet Labs/Tests K 3.4 Cr 0.4 BG 110 Pertinent Medications D5w at 75mL/hr Height 5 ft 6 in Weight 233.6 kg [place] Body Weight (kg) 59.09 BMI 83.1 Subjective/Other Information Pt states appetite remains decreased. Reports eating 30- 50% of meals with no NVD. Percent of energy/protein needs met: 57%/36% Burn Absent Trauma Absent Current % PO Fair (50-74%) Minimum of two criteria No #2 Nutrition Diagnosis Inadequate oral intake Diagnosis Progress(for reassessment Continues documentation) Is patient on ventilator? No Is Patient Ambulatory and/or Out of Bed No REE-([facility]-confined to bed) 3581.100 Kcal/Kg value to use for calculation 8 Approximate Energy Requirements Using 1869 kcal/Kg Calculation Used for Recommendations Kcal/kg Additional Notes Protein needs: 117-146 g/kg/ day (0.8-1 g/kg/day AdBW 146 kg) Fluid: 1 ml/kcal Nutrition Intervention Change Diet Order: Cardiac Diet Goal #1 Meet at least 75% of energy and protein needs Anticipated Discharge Needs: Cardiac diet Follow-Up By: 11/10/19 Additional Comments Follow up for PO intakes, possible ONS
[2019-11-06] MEDS: TAMSULOSIN 0.4 MG CAP PO SCH ×2 (11:17→11:30)
[2019-11-06] MEDS: PANTOPRAZOLE 40 MG TAB PO SCH (11:19)
[2019-11-06] MEDS: carvediloL 6.25 MG TAB PO SCH ×2 (11:24→21:44)
--- NOTE | 2019-11-06 12:35 | Progress Note ---
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 Functional quadriplegia h/o HTN - continue supplemental oxygen for target O2 sats > 88-90% - continue BIPAP scheduled qhs - continue bronchodilators with pulmonary hygiene per RT & per protocol - continue Aspiration precautions, HOB>40 degrees - Advance diet per [employer] team - s/p cardiology evaluation for CHF (continue medical therapy) - follow Baeza-cultures (Trend fevers with symptom management/cooling measures) - s/p completed anti-viral therapy, on antibiotics per ID service (cefepime; sputum grew enterobacter spp.) - continue mobility protocol, off loading for pressure ulcer prevention- high risk patient - Continue with VTE prophylaxis - Continue stress ulcer prophylaxis - Continue with Accuchecks with glycemic control for SSI (While critically ill target blood glucose of 140-180 mg/dL; avoid hypoglycemia) - Continue to monitor hemodynamics closely - Continue to monitor electrolyte profile closely and replete as indicated - Chronic home medications, resume as clinically indicated - PT/OT - Weight loss and life style modifications on discharge. May need surgical bariatric intervention - Out patient evaluation for sleep apnea CONDITION: STABLE PROGNOSIS: IMPROVED CODE STATUS: FULL CODE Subjective Date of service: 11/06/19 Principal diagnosis: Ac. hypoxic-hypercapnic resp failure; Influenza; extreme obesity; ? DEAN Interval history: Patient is seen today for: Acute hypoxic-hypercapnic respiratory failure; influenza infection; extreme obesity; probable DEAN Seen and examined at bedside; 24hour events reviewed; nursing and respiratory care staff consulted; no adverse overnight events reported to me; resting peacefully in bed; still SOB; delirious; remains on supplemental oxygen Objective Vital Signs - 12hr 11/06/19 11/06/19 11/06/19 02:21 05:00 07:24 Temperature 98.3 F Pulse Rate 90 74 Pulse Rate [ Anterior Bilateral Throughout] Respiratory 17 20 Rate Respiratory Rate [Anterior Bilateral Throughout] Blood Pressure 104/56 O2 Sat by Pulse 99 100 96 Oximetry 11/06/19 07:26 Temperature Pulse Rate Pulse Rate [ 89 Anterior Bilateral Throughout] Respiratory Rate Respiratory 20 Rate [Anterior Bilateral Throughout] Blood Pressure O2 Sat by Pulse Oximetry Constitutional: no acute distress, alert, other (morbidly obese middle aged CF with mildly increased resp effort at rest) Eyes: non-icteric ENT: oropharynx moist Neck: supple, no lymphadenopathy, no JVD, other (short neck, large circ umference) Effort: mildly labored Ascultation: Bilateral: diminished breath sounds, rhonchi Percussion: Bilateral: not dull Cardiovascular: regular rate and rhythm, other (S1,S2) Gastrointestinal: normoactive bowel sounds, soft, non-tender, non-distended Integumentary: normal Extremities: no cyanosis, no edema, pink and warm, pulses normal Neurologic: normal mental status, non-focal exam (grossly), pupils equal and round, CN II-XII normal, other (weak) Psychiatric: anxious CBC and BMP: 11/01/19 05:30 11/07/19 08:41 ABG, PT/INR, D-dimer: ABG POC ABG pH 7.522 (7.35-7.45) H 11/02/19 23:02 ABG pH 7.419 pH Units (7.350-7.450) 11/01/19 04:25 POC ABG pCO2 50.0 (35-45) H 11/02/19 23:02 ABG pCO2 60.3 mm Hg 11/01/19 04:25 POC ABG pO2 71 (80-105) L 11/02/19 23:02 ABG pO2 67.0 mm Hg (80.0-90.0) L 11/01/19 04:25 POC ABG HCO3 41.0 (22-26 mml/L) 11/02/19 23:02 POC ABG Total CO2 42 (23-27mmol/L) 11/02/19 23:02 POC ABG O2 Sat 95 11/02/19 23:02 ABG O2 Saturation 94.2 % (95.0-99.0) L 11/01/19 04:25 Abnormal lab findings: Abnormal Labs 10/17/19 10/17/19 10/17/19 20:57 20:57 Unknown WBC 4.0 L RBC Hgb Hct MCV 78 L MCH 25 L RDW 24.7 H Lymph % (Auto) [place] % (Auto) Lymph # Seg Neutrophils % Seg Neuts % (Manual) 77.0 H Monocytes % (Manual) 9.0 H Lymphocytes # (Manual) 0.6 L Monocytes # (Manual) POC ABG pH ABG pH POC ABG pCO2 POC ABG pO2 ABG pO2 ABG HCO3 ABG O2 Saturation ABG Base Excess ABG Hemoglobin Oxyhemoglobin Sodium Potassium 3.5 L Chloride Carbon Dioxide BUN Creatinine 0.6 L Glucose 147 H POC Glucose Calcium 7.9 L AST 57 H Total Creatine Kinase 857 H Albumin 3.0 L Triglycerides Influenza A (Rapid) Positive A 10/18/19 10/18/19 10/18/19 05:21 05:21 09:19 WBC 3.3 L RBC Hgb Hct MCV MCH 25 L RDW 24.3 H Lymph % (Auto) 12.5 L [place] % (Auto) 7.9 H Lymph # 0.4 L Seg Neutrophils % 78.6 H Seg Neuts % (Manual) Monocytes % (Manual) Lymphocytes # (Manual) Monocytes # (Manual) POC ABG pH ABG pH POC ABG pCO2 POC ABG pO2 ABG pO2 131.3 H ABG HCO3 30.2 H ABG O2 Saturation ABG Base Excess 4.5 H ABG Hemoglobin 10.7 L Oxyhemoglobin Sodium Potassium Chloride Carbon Dioxide BUN Creatinine Glucose 167 H POC Glucose Calcium 8.3 L AST Total Creatine Kinase Albumin Triglycerides Influenza A (Rapid) 10/18/19 10/18/19 10/19/19 11:28 18:27 06:39 WBC RBC Hgb Hct MCV MCH RDW Lymph % (Auto) [place] % (Auto) Lymph # Seg Neutrophils % Seg Neuts % (Manual) Monocytes % (Manual) Lymphocytes # (Manual) Monocytes # (Manual) POC ABG pH 7.461 H 7.487 H ABG pH POC ABG pCO2 53.4 H 52.8 H 51.7 H POC ABG pO2 70 L 71 L ABG pO2 ABG HCO3 ABG O2 Saturation ABG Base Excess ABG Hemoglobin Oxyhemoglobin Sodium Potassium Chloride Carbon Dioxide BUN Creatinine Glucose POC Glucose Calcium AST Total Creatine Kinase Albumin Triglycerides Influenza A (Rapid) 10/19/19 10/20/19 10/20/19 23:25 05:31 09:08 WBC RBC Hgb Hct MCV MCH RDW Lymph % (Auto) [place] % (Auto) Lymph # Seg Neutrophils % Seg Neuts % (Manual) Monocytes % (Manual) Lymphocytes # (Manual) Monocytes # (Manual) POC ABG pH ABG pH POC ABG pCO2 POC ABG pO2 ABG pO2 ABG HCO3 ABG O2 Saturation ABG Base Excess ABG Hemoglobin Oxyhemoglobin Sodium Potassium Chloride Carbon Dioxide BUN Creatinine Glucose POC Glucose 203 H 144 H 163 H Calcium AST Total Creatine Kinase Albumin Triglycerides Influenza A (Rapid) 10/20/19 10/20/19 10/20/19 10:25 13:22 14:51 WBC RBC Hgb Hct MCV MCH RDW Lymph % (Auto) [place] % (Auto) Lymph # Seg Neutrophils % Seg Neuts % (Manual) Monocytes % (Manual) Lymphocytes # (Manual) Monocytes # (Manual) POC ABG pH 7.632 H ABG pH POC ABG pCO2 POC ABG pO2 74 L ABG pO2 ABG HCO3 ABG O2 Saturation ABG Base Excess ABG Hemoglobin Oxyhemoglobin Sodium 147 H Potassium Chloride Carbon Dioxide 31 H BUN Creatinine 0.5 L Glucose 154 H POC Glucose 178 H Calcium 8.2 L AST Total Creatine Kinase Albumin Triglycerides Influenza A (Rapid) 10/20/19 10/20/19 10/20/19 14:51 17:16 21:30 WBC 11.2 H RBC Hgb Hct MCV 78 L MCH 25 L RDW 23.9 H Lymph % (Auto) [place] % (Auto) Lymph # Seg Neutrophils % Seg Neuts % (Manual) Monocytes % (Manual) Lymphocytes # (Manual) Monocytes # (Manual) POC ABG pH ABG pH POC ABG pCO2 POC ABG pO2 ABG pO2 ABG HCO3 ABG O2 Saturation ABG Base Excess ABG Hemoglobin Oxyhemoglobin Sodium Potassium Chloride Carbon Dioxide BUN Creatinine Glucose POC Glucose 143 H 152 H Calcium AST Total Creatine Kinase Albumin Triglycerides Influenza A (Rapid) 10/20/19 10/21/19 10/21/19 22:52 05:55 08:27 WBC RBC Hgb Hct MCV MCH RDW Lymph % (Auto) [place] % (Auto) Lymph # Seg Neutrophils % Seg Neuts % (Manual) Monocytes % (Manual) Lymphocytes # (Manual) Monocytes # (Manual) POC ABG pH ABG pH POC ABG pCO2 POC ABG pO2 ABG pO2 ABG HCO3 ABG O2 Saturation ABG Base Excess ABG Hemoglobin Oxyhemoglobin Sodium Potassium Chloride Carbon Dioxide BUN Creatinine Glucose POC Glucose 179 H 115 H 131 H Calcium AST Total Creatine Kinase Albumin Triglycerides Influenza A (Rapid) 10/21/19 10/21/19 10/21/19 11:52 16:23 23:38 WBC RBC Hgb Hct MCV MCH RDW Lymph % (Auto) [place] % (Auto) Lymph # Seg Neutrophils % Seg Neuts % (Manual) Monocytes % (Manual) Lymphocytes # (Manual) Monocytes # (Manual) POC ABG pH ABG pH POC ABG pCO2 POC ABG pO2 ABG pO2 ABG HCO3 ABG O2 Saturation ABG Base Excess ABG Hemoglobin Oxyhemoglobin Sodium Potassium Chloride Carbon Dioxide BUN Creatinine Glucose POC Glucose 122 H 120 H 115 H Calcium AST Total Creatine Kinase Albumin Triglycerides Influenza A (Rapid) 10/22/19 10/22/19 10/22/19 00:35 05:19 06:10 WBC RBC Hgb Hct MCV MCH 25 L RDW 22.8 H Lymph % (Auto) [place] % (Auto) Lymph # Seg Neutrophils % Seg Neuts % (Manual) Monocytes % (Manual) Lymphocytes # (Manual) Monocytes # (Manual) POC ABG pH ABG pH 7.520 H POC ABG pCO2 POC ABG pO2 ABG pO2 64.4 L ABG HCO3 36.8 H ABG O2 Saturation ABG Base Excess 12.6 H ABG Hemoglobin 10.4 L Oxyhemoglobin Sodium Potassium Chloride Carbon Dioxide BUN Creatinine Glucose POC Glucose 108 H Calcium AST Total Creatine Kinase Albumin Triglycerides Influenza A (Rapid) 10/22/19 10/24/19 10/25/19 15:40 05:49 04:20 WBC RBC Hgb Hct MCV MCH RDW Lymph % (Auto) [place] % (Auto) Lymph # Seg Neutrophils % Seg Neuts % (Manual) Monocytes % (Manual) Lymphocytes # (Manual) Monocytes # (Manual) POC ABG pH 7.454 H ABG pH POC ABG pCO2 64.1 H 63.5 H POC ABG pO2 73 L ABG pO2 ABG HCO3 ABG O2 Saturation ABG Base Excess ABG Hemoglobin Oxyhemoglobin Sodium 136 L D Potassium Chloride 97.6 L Carbon Dioxide BUN 19 H Creatinine Glucose 125 H POC Glucose Calcium AST Total Creatine Kinase Albumin Triglycerides Influenza A (Rapid) 10/25/19 10/25/19 10/26/19 05:35 05:35 04:19 WBC RBC Hgb 10.0 L Hct MCV MCH 25 L RDW 22.0 H Lymph % (Auto) [place] % (Auto) Lymph # Seg Neutrophils % Seg Neuts % (Manual) Monocytes % (Manual) Lymphocytes # (Manual) Monocytes # (Manual) POC ABG pH ABG pH POC ABG pCO2 66.1 H POC ABG pO2 75 L ABG pO2 ABG HCO3 ABG O2 Saturation ABG Base Excess ABG Hemoglobin Oxyhemoglobin Sodium 147 H D Potassium Chloride Carbon Dioxide 34 H D BUN 23 H Creatinine 0.5 L Glucose 184 H POC Glucose Calcium AST Total Creatine Kinase Albumin Triglycerides Influenza A (Rapid) 10/26/19 10/26/19 10/26/19 05:20 05:20 12:44 WBC RBC Hgb 9.5 L Hct MCV MCH 25 L RDW 22.3 H Lymph % (Auto) [place] % (Auto) Lymph # Seg Neutrophils % Seg Neuts % (Manual) Monocytes % (Manual) Lymphocytes # (Manual) Monocytes # (Manual) POC ABG pH 7.501 H ABG pH POC ABG pCO2 54.7 H POC ABG pO2 69 L ABG pO2 ABG HCO3 ABG O2 Saturation ABG Base Excess ABG Hemoglobin Oxyhemoglobin Sodium 152 H Potassium Chloride Carbon Dioxide 33 H BUN 27 H Creatinine 0.6 L Glucose 135 H POC Glucose Calcium AST Total Creatine Kinase Albumin Triglycerides Influenza A (Rapid) 10/27/19 10/27/19 10/27/19 03:30 05:40 05:40 WBC RBC 3.62 L Hgb 9.4 L Hct 29.1 L MCV MCH 26 L RDW 21.7 H Lymph % (Auto) [place] % (Auto) Lymph # Seg Neutrophils % Seg Neuts % (Manual) Monocytes % (Manual) Lymphocytes # (Manual) Monocytes # (Manual) POC ABG pH ABG pH 7.472 H POC ABG pCO2 POC ABG pO2 ABG pO2 ABG HCO3 38.2 H ABG O2 Saturation ABG Base Excess 13.3 H ABG Hemoglobin 6.5 L Oxyhemoglobin Sodium 149 H Potassium 3.3 L Chloride Carbon Dioxide 31 H BUN 25 H Creatinine 0.5 L Glucose 142 H POC Glucose Calcium 8.2 L AST Total Creatine Kinase Albumin Triglycerides Influenza A (Rapid) 10/27/19 10/28/19 10/28/19 05:40 05:19 05:56 WBC RBC Hgb Hct MCV MCH RDW Lymph % (Auto) [place] % (Auto) Lymph # Seg Neutrophils % Seg Neuts % (Manual) Monocytes % (Manual) Lymphocytes # (Manual) Monocytes # (Manual) POC ABG pH 7.489 H ABG pH POC ABG pCO2 51.0 H POC ABG pO2 71 L ABG pO2 ABG HCO3 ABG O2 Saturation ABG Base Excess ABG Hemoglobin Oxyhemoglobin Sodium 153 H Potassium Chloride Carbon Dioxide 31 H BUN Creatinine 0.4 L Glucose 111 H POC Glucose Calcium 8.1 L AST Total Creatine Kinase Albumin Triglycerides 279 H Influenza A (Rapid) 10/29/19 10/29/19 10/30/19 03:54 04:21 04:48 WBC RBC Hgb Hct MCV MCH RDW Lymph % (Auto) [place] % (Auto) Lymph # Seg Neutrophils % Seg Neuts % (Manual) Monocytes % (Manual) Lymphocytes # (Manual) Monocytes # (Manual) POC ABG pH 7.506 H 7.508 H ABG pH POC ABG pCO2 53.6 H 49.6 H POC ABG pO2 ABG pO2 ABG HCO3 ABG O2 Saturation ABG Base Excess ABG Hemoglobin Oxyhemoglobin Sodium 150 H Potassium Chloride Carbon Dioxide BUN Creatinine 0.4 L Glucose 137 H POC Glucose Calcium AST Total Creatine Kinase Albumin Triglycerides Influenza A (Rapid) 10/30/19 10/30/19 10/31/19 09:54 21:08 00:17 WBC RBC Hgb Hct MCV MCH RDW Lymph % (Auto) [place] % (Auto) Lymph # Seg Neutrophils % Seg Neuts % (Manual) Monocytes % (Manual) Lymphocytes # (Manual) Monocytes # (Manual) POC ABG pH 7.455 H ABG pH POC ABG pCO2 58.6 H POC ABG pO2 74 L ABG pO2 ABG HCO3 ABG O2 Saturation ABG Base Excess ABG Hemoglobin Oxyhemoglobin Sodium 148 H Potassium Chloride Carbon Dioxide BUN Creatinine 0.4 L Glucose 156 H POC Glucose 160 H Calcium AST Total Creatine Kinase Albumin Triglycerides Influenza A (Rapid) 10/31/19 10/31/19 10/31/19 04:42 08:02 16:24 WBC RBC Hgb Hct MCV MCH RDW Lymph % (Auto) [place] % (Auto) Lymph # Seg Neutrophils % Seg Neuts % (Manual) Monocytes % (Manual) Lymphocytes # (Manual) Monocytes # (Manual) POC ABG pH ABG pH POC ABG pCO2 62.2 H POC ABG pO2 76 L ABG pO2 ABG HCO3 ABG O2 Saturation ABG Base Excess ABG Hemoglobin Oxyhemoglobin Sodium 149 H Potassium Chloride Carbon Dioxide BUN Creatinine 0.4 L Glucose 146 H POC Glucose 143 H Calcium AST Total Creatine Kinase Albumin Triglycerides Influenza A (Rapid) 11/01/19 11/01/19 11/01/19 04:25 05:30 05:30 WBC RBC Hgb 9.7 L Hct 30.1 L MCV MCH 26 L RDW 21.6 H Lymph % (Auto) [place] % (Auto) Lymph # Seg Neutrophils % Seg Neuts % (Manual) Monocytes % (Manual) 10.0 H Lymphocytes # (Manual) Monocytes # (Manual) 0.9 H POC ABG pH ABG pH POC ABG pCO2 POC ABG pO2 ABG pO2 67.0 L ABG HCO3 38.2 H ABG O2 Saturation 94.2 L ABG Base Excess 11.8 H ABG Hemoglobin 10.7 L Oxyhemoglobin 91.6 L Sodium 147 H Potassium Chloride Carbon Dioxide 31 H BUN Creatinine 0.4 L Glucose 136 H POC Glucose Calcium AST Total Creatine Kinase Albumin Triglycerides Influenza A (Rapid) 11/01/19 11/02/19 11/02/19 10:32 22:46 23:02 WBC RBC Hgb Hct MCV MCH RDW Lymph % (Auto) [place] % (Auto) Lymph # Seg Neutrophils % Seg Neuts % (Manual) Monocytes % (Manual) Lymphocytes # (Manual) Monocytes # (Manual) POC ABG pH 7.465 H 7.522 H ABG pH POC ABG pCO2 56.8 H 50.0 H POC ABG pO2 71 L ABG pO2 ABG HCO3 ABG O2 Saturation ABG Base Excess ABG Hemoglobin Oxyhemoglobin Sodium Potassium Chloride Carbon Dioxide BUN Creatinine Glucose POC Glucose 126 H Calcium AST Total Creatine Kinase Albumin Triglycerides Influenza A (Rapid) 11/04/19 11/05/19 05:57 04:22 WBC RBC Hgb Hct MCV MCH RDW Lymph % (Auto) [place] % (Auto) Lymph # Seg Neutrophils % Seg Neuts % (Manual) Monocytes % (Manual) Lymphocytes # (Manual) Monocytes # (Manual) POC ABG pH ABG pH POC ABG pCO2 POC ABG pO2 ABG pO2 ABG HCO3 ABG O2 Saturation ABG Base Excess ABG Hemoglobin Oxyhemoglobin Sodium 148 H Potassium 3.1 L 3.4 L Chloride 97.4 L Carbon Dioxide 34 H 31 H BUN Creatinine 0.5 L 0.4 L Glucose 128 H 110 H POC Glucose Calcium AST Total Creatine Kinase Albumin Triglycerides Influenza A (Rapid) Allied health notes reviewed: RT
[2019-11-06] MEDS: SODIUM CHLORIDE 0.9% IV SCH (15:40)
[2019-11-06] MEDS: CEFEPIME IV SCH (15:40)
[2019-11-07] MEDS: HEPARIN 5,000 UNIT/1 ML VIAL SUB-Q SCH ×3 (06:51→22:19)
[2019-11-07] MEDS: IPRATROPIUM/ALBUTEROL SULFATE 3 ML AMPUL.NEB IH SCH ×3 (08:16→20:46)
[2019-11-07] MEDS: DEXTROSE 5% IN WATER 1,000 ML IV SCH ×2 (09:33→22:56)
[2019-11-07] MEDS: PANTOPRAZOLE 40 MG TAB PO SCH (09:38)
[2019-11-07] MEDS: TAMSULOSIN 0.4 MG CAP PO SCH (09:39)
[2019-11-07] MEDS: carvediloL 6.25 MG TAB PO SCH ×3 (09:41→22:21)
--- NOTE | 2019-11-07 10:36 | Progress Note ---
Assessment and Plan Assessment and plan: Acute hypoxemic respiratory failure. Respiratory/tracheal aspirate reveals Enterobacter. The patient failed BiPAP and required intubation on 10/23/2019. Patient now extubated. Pulmonary following. Sepsis. Etiology secondary to pneumonia/influenza A. Continue antibiotics per ID. Influenza A. Completed high dose prolonged Tamiflu course. Bilateral pneumonia. resp culture with GNR, patient on Cefepime. Acute on chronic diastolic heart failure. Echocardiogram revealed The left ventricular size is mildly dilated, mild to moderate concentric LVH, est EF 40- 45%, left atrium is mildly dilated, trace MR, mild TR, mild to moderate Pulmonary hypertension, RVSP is calculated at 42 mmHg. Obesity hypoventilation syndrome/DEAN. Outpatient evaluation for sleep apnea Morbid obesity. BMI is 83. Weight loss and life style modifications on discharge. May need surgical bariatric intervention Agitation on and off. calm today CT head could not be done because of body habitus. Debility PT eval ongoing Hopefully dc soon. History Interval history: Agitated on and off Dizziness on sitting up Generalized weakness Hospitalist Physical - Physical exam Narrative exam: GEN: Not in acute distress, lying in bed, morbidly obese HEENT: Normocephalic, atraumatic, Neck: supple, No JVD Lungs: Clear to auscultation bilaterally, no wheeze, heart;S1 and S2 reg, no murmurs Abd:soft, non tender, non distended, normal bowel sounds Ext: No edema, no clubbing, no cyanosis Neuro: AAO X 3, no focal neurological signs, moves all ext - Constitutional Vitals: Temp Pulse Resp BP Pulse Ox 98.5 F 94 H 18 138/71 98 11/07/19 05:04 11/07/19 09:41 11/07/19 05:04 11/07/19 09:41 11/07/19 05:04 General appearance: Present: obese Results - Labs CBC & Chem 7: 11/01/19 05:30 11/07/19 14:29 Labs: Laboratory Last Values WBC 8.5 K/mm3 (4.5-11.0) 11/01/19 05:30 RBC 3.67 M/mm3 (3.65-5.03) 11/01/19 05:30 Hgb 9.7 gm/dl (10.1-14.3) L 11/01/19 05:30 Hct 30.1 % (30.3-42.9) L 11/01/19 05:30 MCV 82 fl (79-97) 11/01/19 05:30 MCH 26 pg (28-32) L 11/01/19 05:30 MCHC 32 % (30-34) 11/01/19 05:30 RDW 21.6 % (13.2-15.2) H 11/01/19 05:30 Plt Count 356 K/mm3 (140-440) 11/01/19 05:30 Lymph % (Auto) 12.5 % (13.4-35.0) L 10/18/19 05:21 Murray % (Auto) 7.9 % (0.0-7.3) H 10/18/19 05:21 Eos % (Auto) 0.0 % (0.0-4.3) 10/18/19 05:21 Baso % (Auto) 1.0 % (0.0-1.8) 10/18/19 05:21 Lymph # 0.4 K/mm3 (1.2-5.4) L 10/18/19 05:21 Murray # 0.3 K/mm3 (0.0-0.8) 10/18/19 05:21 Eos # 0.0 K/mm3 (0.0-0.4) 10/18/19 05:21 Baso # 0.0 K/mm3 (0.0-0.1) 10/18/19 05:21 Add Manual Diff Complete 11/01/19 05:30 Total Counted 100 11/01/19 05:30 Seg Neutrophils % 78.6 % (40.0-70.0) H 10/18/19 05:21 Seg Neuts % (Manual) 70.0 % (40.0-70.0) 11/01/19 05:30 Band Neutrophils % 1.0 % 11/01/19 05:30 Lymphocytes % (Manual) 17.0 % (13.4-35.0) 11/01/19 05:30 Reactive Lymphs % (Man) 0 % 11/01/19 05:30 Monocytes % (Manual) 10.0 % (0.0-7.3) H 11/01/19 05:30 Eosinophils % (Manual) 1.0 % (0.0-4.3) 11/01/19 05:30 Basophils % (Manual) 0 % (0.0-1.8) 11/01/19 05:30 Metamyelocytes % 1.0 % 11/01/19 05:30 Myelocytes % 0 % 11/01/19 05:30 Promyelocytes % 0 % 11/01/19 05:30 Blast Cells % 0 % 11/01/19 05:30 Nucleated RBC % Not Reportable 11/01/19 05:30 Seg Neutrophils # 2.6 K/mm3 (1.8-7.7) 10/18/19 05:21 Seg Neutrophils # Man 6.0 K/mm3 (1.8-7.7) 11/01/19 05:30 Band Neutrophils # 0.1 K/mm3 11/01/19 05:30 Lymphocytes # (Manual) 1.4 K/mm3 (1.2-5.4) 11/01/19 05:30 Abs React Lymphs (Man) 0.0 K/mm3 11/01/19 05:30 Monocytes # (Manual) 0.9 K/mm3 (0.0-0.8) H 11/01/19 05:30 Eosinophils # (Manual) 0.1 K/mm3 (0.0-0.4) 11/01/19 05:30 Basophils # (Manual) 0.0 K/mm3 (0.0-0.1) 11/01/19 05:30 Metamyelocytes # 0.1 K/mm3 11/01/19 05:30 Myelocytes # 0.0 K/mm3 11/01/19 05:30 Promyelocytes # 0.0 K/mm3 11/01/19 05:30 Blast Cells # 0.0 K/mm3 11/01/19 05:30 WBC Morphology Not Reportable 11/01/19 05:30 Hypersegmented Neuts Not Reportable 11/01/19 05:30 Hyposegmented Neuts Not Reportable 11/01/19 05:30 Hypogranular Neuts Not Reportable 11/01/19 05:30 Smudge Cells Not Reportable 11/01/19 05:30 Toxic Granulation Not Reportable 11/01/19 05:30 Toxic Vacuolation Not Reportable 11/01/19 05:30 Dohle Bodies Not Reportable 11/01/19 05:30 Pelger-Huet Anomaly Not Reportable 11/01/19 05:30 Krista Rods Not Reportable 11/01/19 05:30 Platelet Estimate Consistent w auto 11/01/19 05:30 Clumped Platelets Not Reportable 11/01/19 05:30 Plt Clumps, EDTA Not Reportable 11/01/19 05:30 Large Platelets Not Reportable 11/01/19 05:30 Giant Platelets Not Reportable 11/01/19 05:30 Platelet Satelliting Not Reportable 11/01/19 05:30 Plt Morphology Comment Not Reportable 11/01/19 05:30 RBC Morphology Not Reportable 11/01/19 05:30 Dimorphic RBCs Not Reportable 11/01/19 05:30 Polychromasia Rare 11/01/19 05:30 Hypochromasia Not Reportable 11/01/19 05:30 Poikilocytosis Not Reportable 11/01/19 05:30 Anisocytosis 1+ 11/01/19 05:30 Microcytosis Not Reportable 11/01/19 05:30 Macrocytosis Not Reportable 11/01/19 05:30 Spherocytes Not Reportable 11/01/19 05:30 Pappenheimer Bodies Not Reportable 11/01/19 05:30 Sickle Cells Not Reportable 11/01/19 05:30 Target Cells Not Reportable 11/01/19 05:30 Tear Drop Cells Not Reportable 11/01/19 05:30 Ovalocytes Not Reportable 11/01/19 05:30 Stomatocytes 2+ 11/01/19 05:30 Helmet Cells Not Reportable 11/01/19 05:30 Gallagher-Hidalgo Bodies Not Reportable 11/01/19 05:30 [place] Rings Not Reportable 11/01/19 05:30 James Cells Not Reportable 11/01/19 05:30 Bite Cells Not Reportable 11/01/19 05:30 Crenated Cell Not Reportable 11/01/19 05:30 Elliptocytes Not Reportable 11/01/19 05:30 Acanthocytes (Spur) Not Reportable 11/01/19 05:30 Rouleaux Not Reportable 11/01/19 05:30 Hemoglobin C Crystals Not Reportable 11/01/19 05:30 Schistocytes Not Reportable 11/01/19 05:30 Malaria parasites Not Reportable 11/01/19 05:30 Alejandro Bodies Not Reportable 11/01/19 05:30 Hem Pathologist Commnt No 11/01/19 05:30 POC ABG pH 7.522 (7.35-7.45) H 11/02/19 23:02 ABG pH 7.419 pH Units (7.350-7.450) 11/01/19 04:25 POC ABG pCO2 50.0 (35-45) H 11/02/19 23:02 ABG pCO2 60.3 mm Hg 11/01/19 04:25 POC ABG pO2 71 (80-105) L 11/02/19 23:02 ABG pO2 67.0 mm Hg (80.0-90.0) L 11/01/19 04:25 POC ABG HCO3 41.0 (22-26 mml/L) 11/02/19 23:02 ABG HCO3 38.2 mmol/L (20.0-26.0) H 11/01/19 04:25 POC ABG Total CO2 42 (23-27mmol/L) 11/02/19 23:02 POC ABG O2 Sat 95 11/02/19 23:02 ABG O2 Saturation 94.2 % (95.0-99.0) L 11/01/19 04:25 ABG O2 Content 13.8 (0.0-44) 11/01/19 04:25 POC ABG Base Excess 18 ((-2) - (+3)mmol/L) 11/02/19 23:02 ABG Base Excess 11.8 mmol/L (-2.0-3.0) H 11/01/19 04:25 ABG Hemoglobin 10.7 gm/dl (12.0-16.0) L 11/01/19 04:25 ABG Carboxyhemoglobin 2.3 % (0.0-5.0) 11/01/19 04:25 ABG Methemoglobin 0.5 % (0.0-1.5) 11/01/19 04:25 Oxyhemoglobin 91.6 % (95.0-99.0) L 11/01/19 04:25 FiO2 50 % 11/02/19 23:02 Sodium 141 mmol/L (137-145) 11/05/19 04:22 Potassium 3.4 mmol/L (3.6-5.0) L 11/05/19 04:22 Chloride 97.4 mmol/L (98-107) L 11/05/19 04:22 Carbon Dioxide 31 mmol/L (22-30) H 11/05/19 04:22 Anion Gap 16 mmol/L 11/05/19 04:22 BUN 11 mg/dL (7-17) 11/05/19 04:22 Creatinine 0.4 mg/dL (0.7-1.2) L 11/05/19 04:22 Estimated GFR > 60 ml/min 11/05/19 04:22 BUN/Creatinine Ratio 28 % 11/05/19 04:22 Glucose 110 mg/dL (65-100) H 11/05/19 04:22 POC Glucose 126 (70-105) H 11/02/19 22:46 Calcium 8.7 mg/dL (8.4-10.2) 11/05/19 04:22 Total Bilirubin 0.20 mg/dL (0.1-1.2) 10/17/19 20:57 AST 57 units/L (5-40) H 10/17/19 20:57 ALT 22 units/L (7-56) 10/17/19 20:57 Alkaline Phosphatase 67 units/L (35-129) 10/17/19 20:57 Total Creatine Kinase 72 units/L (30-135) 10/30/19 09:54 CK-MB (CK-2) < 1.0 ng/mL (0.0-4.0) 10/30/19 09:54 CK-MB (CK-2) Rel Index 1.3 (0-4) 10/30/19 09:54 Troponin T < 0.010 ng/mL (0.00-0.029) 10/30/19 09:54 NT-Pro-B Natriuret Pep 317.6 pg/mL (0-450) 10/17/19 20:57 Total Protein 7.1 g/dL (6.3-8.2) 10/17/19 20:57 Albumin 3.0 g/dL (3.9-5) L 10/17/19 20:57 Albumin/Globulin Ratio 0.7 % 10/17/19 20:57 Triglycerides 279 mg/dL (2-149) H 10/27/19 05:40 Procalcitonin 0.06 ng/mL (<0.15) 10/20/19 14:51 Influenza A (Rapid) Positive (Negative) A 10/17/19 Unknown Influenza B (Rapid) Negative (Negative) 10/17/19 Unknown Active Medications - Current Medications Current Medications: Generic Name Dose Route Start Last Admin Trade Name Freq PRN Reason Stop Dose Admin Acetaminophen 650 mg 10/27/19 08:38 11/02/19 08:46 Tylenol PO 650 mg Q4H PRN Administration Non Cardiac Pain or Temp>100.5 Acetaminophen/Hydrocodone Bitart 1 each 11/04/19 17:28 11/04/19 18:23 Harmans 5/325 PO 1 each Q6H PRN Administration Pain, Moderate (4-6) Albuterol 2.5 mg 10/17/19 22:47 10/19/19 14:34 Proventil IH 2.5 mg Q3HRT PRN Administration Shortness Of Breath Albuterol/Ipratropium 1 ampul 10/19/19 20:00 11/07/19 08:16 Duoneb *Not For Prn Use* IH 1 ampul TIDRT EDI Administration Carvedilol 6.25 mg 11/04/19 13:00 11/07/19 09:41 Coreg PO Not Given BID EDI Heparin Sodium (Porcine) 5,000 unit 10/18/19 06:00 11/07/19 06:51 Heparin SUB-Q 5,000 unit Q8HR EDI Administration Hydrophilic Ointment 1 applic 10/23/19 17:29 10/27/19 00:29 Vaseline Lip Therapy TP 1 applic Q2HR PRN Administration Dry Lips Cefepime HCl 6 gm/ Sodium 250 mls @ 10.417 mls/hr 10/31/19 14:00 11/06/19 15:40 Chloride IV 11/08/19 13:59 10.417 mls/hr Q24H EDI Administration Dextrose 1,000 mls @ 75 mls/hr 11/04/19 09:00 11/07/19 09:33 D5w IV 75 mls/hr DIRECT EDI Administration Labetalol HCl 10 mg 10/24/19 14:32 Labetalol IV Q4H PRN Blood Pressure Magnesium Hydroxide 30 ml 10/30/19 10:04 10/30/19 10:48 Milk Of Magnesia PO 30 ml Q4H PRN Administration INDIGESTION Multi-Ingred Cream/Lotion/Oil/Oint 1 applic 10/23/19 17:29 Artificial Tears Ophth Oint OU Q4HR PRN Dry Eye(s) Ondansetron HCl 4 mg 10/17/19 22:47 10/29/19 02:45 Zofran IV 4 mg Q8H PRN Administration Nausea And Vomiting Pantoprazole Sodium 40 mg 11/03/19 10:00 11/07/19 09:38 Protonix PO 40 mg DAILY EDI Administration Sodium Chloride 10 ml 10/18/19 10:00 11/07/19 09:39 Sodium Chloride Flush Syringe 10 Ml IV Not Given BID EDI Sodium Chloride 10 ml 10/17/19 22:47 Sodium Chloride Flush Syringe 10 Ml IV PRN PRN LINE FLUSH Tamsulosin HCl 0.4 mg 10/30/19 11:00 11/07/19 09:39 Flomax PO 0.4 mg QDAY EDI Administration Nutrition/Malnutrition Assess - Dietary Evaluation Nutrition/Malnutrition Findings: Nutrition Notes Start: 10/19/19 13:20 Freq: Status: Active Protocol: Document 11/05/19 11:10 KS (Rec: 11/05/19 11:19 KS [id number]) Co-Sign 11/05/19 11:10 LP Nutrition Notes Initial or Follow up Reassessment Current Diagnosis Hypertension,Respiratory Failure Other Pertinent Diagnosis Influlenza A pneumonia, lymphedema, pulmonary edema, SOB, DVT Current Diet Cardiac Diet Labs/Tests K 3.4 Cr 0.4 BG 110 Pertinent Medications D5w at 75mL/hr Height 5 ft 6 in Weight 233.6 kg [place] Body Weight (kg) 59.09 BMI 83.1 Subjective/Other Information Pt states appetite remains decreased. Reports eating 30- 50% of meals with no NVD. Percent of energy/protein needs met: 57%/36% Burn Absent Trauma Absent Current % PO Fair (50-74%) Minimum of two criteria No #2 Nutrition Diagnosis Inadequate oral intake Diagnosis Progress(for reassessment Continues documentation) Is patient on ventilator? No Is Patient Ambulatory and/or Out of Bed No REE-([place]-confined to bed) 3581.100 Kcal/Kg value to use for calculation 8 Approximate Energy Requirements Using 1869 kcal/Kg Calculation Used for Recommendations Kcal/kg Additional Notes Protein needs: 117-146 g/kg/ day (0.8-1 g/kg/day AdBW 146 kg) Fluid: 1 ml/kcal Nutrition Intervention Change Diet Order: Cardiac Diet Goal #1 Meet at least 75% of energy and protein needs Anticipated Discharge Needs: Cardiac diet Follow-Up By: 11/10/19 Additional Comments Follow up for PO intakes, possible ONS
--- NOTE | 2019-11-07 11:29 | Progress Note ---
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 Functional quadriplegia h/o HTN - continue supplemental oxygen for target O2 sats > 88-90% - continue BIPAP scheduled qhs - continue bronchodilators with pulmonary hygiene per RT & per protocol - continue Aspiration precautions, HOB>40 degrees - Advance diet per [employer] team - s/p cardiology evaluation for CHF (continue medical therapy) - follow Baeza-cultures (Trend fevers with symptom management/cooling measures) - s/p completed anti-viral therapy, on antibiotics per ID service (cefepime; sputum grew enterobacter spp.) - continue mobility protocol, off loading for pressure ulcer prevention- high risk patient - Continue with VTE prophylaxis - Continue stress ulcer prophylaxis - Continue with Accuchecks with glycemic control for SSI (While critically ill target blood glucose of 140-180 mg/dL; avoid hypoglycemia) - Continue to monitor hemodynamics closely - Continue to monitor electrolyte profile closely and replete as indicated - Chronic home medications, resume as clinically indicated - PT/OT - Weight loss and life style modifications on discharge. May need surgical bariatric intervention - Out patient evaluation for sleep apnea CONDITION: STABLE PROGNOSIS: IMPROVED CODE STATUS: FULL CODE Subjective Date of service: 11/07/19 Principal diagnosis: Ac. hypoxic-hypercapnic resp failure; Influenza; extreme obesity; ? DEAN Interval history: Patient is seen today for: Acute hypoxic-hypercapnic respiratory failure; influenza infection; extreme obesity; probable DEAN Seen and examined at bedside; 24hour events reviewed; nursing and respiratory care staff consulted; no adverse overnight events reported to me; resting peacefully in bed; Objective Vital Signs - 12hr 11/07/19 11/07/19 11/07/19 02:10 05:04 09:41 Temperature 98.5 F Pulse Rate 84 94 H Respiratory 21 18 Rate Blood Pressure 135/74 138/71 O2 Sat by Pulse 98 Oximetry Constitutional: no acute distress, alert, other (morbidly obese middle aged CF with mildly increased resp effort at rest) Eyes: non-icteric ENT: oropharynx moist Neck: supple, no lymphadenopathy, no JVD, other (short neck, large circumference) Effort: mildly labored Ascultation: Bilateral: diminished breath sounds, rhonchi Percussion: Bilateral: not dull Cardiovascular: regular rate and rhythm, other (S1,S2) Gastrointestinal: normoactive bowel sounds, soft, non-tender, non-distended Integumentary: normal Extremities: no cyanosis, no edema, pink and warm, pulses normal Neurologic: normal mental status, non-focal exam (grossly), pupils equal and round, CN II-XII normal, other (weak) Psychiatric: anxious CBC and BMP: 11/01/19 05:30 11/07/19 08:41 ABG, PT/INR, D-dimer: ABG POC ABG pH 7.522 (7.35-7.45) H 11/02/19 23:02 ABG pH 7.419 pH Units (7.350-7.450) 11/01/19 04:25 POC ABG pCO2 50.0 (35-45) H 11/02/19 23:02 ABG pCO2 60.3 mm Hg 11/01/19 04:25 POC ABG pO2 71 (80-105) L 11/02/19 23:02 ABG pO2 67.0 mm Hg (80.0-90.0) L 11/01/19 04:25 POC ABG HCO3 41.0 (22-26 mml/L) 11/02/19 23:02 POC ABG Total CO2 42 (23-27mmol/L) 11/02/19 23:02 POC ABG O2 Sat 95 11/02/19 23:02 ABG O2 Saturation 94.2 % (95.0-99.0) L 11/01/19 04:25 Abnormal lab findings: Abnormal Labs 10/17/19 10/17/19 10/17/19 20:57 20:57 Unknown WBC 4.0 L RBC Hgb Hct MCV 78 L MCH 25 L RDW 24.7 H Lymph % (Auto) [place] % (Auto) Lymph # Seg Neutrophils % Seg Neuts % (Manual) 77.0 H Monocytes % (Manual) 9.0 H Lymphocytes # (Manual) 0.6 L Monocytes # (Manual) POC ABG pH ABG pH POC ABG pCO2 POC ABG pO2 ABG pO2 ABG HCO3 ABG O2 Saturation ABG Base Excess ABG Hemoglobin Oxyhemoglobin Sodium Potassium 3.5 L Chloride Carbon Dioxide BUN Creatinine 0.6 L Glucose 147 H POC Glucose Calcium 7.9 L AST 57 H Total Creatine Kinase 857 H Albumin 3.0 L Triglycerides Influenza A (Rapid) Positive A 10/18/19 10/18/19 10/18/19 05:21 05:21 09:19 WBC 3.3 L RBC Hgb Hct MCV MCH 25 L RDW 24.3 H Lymph % (Auto) 12.5 L [place] % (Auto) 7.9 H Lymph # 0.4 L Seg Neutrophils % 78.6 H Seg Neuts % (Manual) Monocytes % (Manual) Lymphocytes # (Manual) Monocytes # (Manual) POC ABG pH ABG pH POC ABG pCO2 POC ABG pO2 ABG pO2 131.3 H ABG HCO3 30.2 H ABG O2 Saturation ABG Base Excess 4.5 H ABG Hemoglobin 10.7 L Oxyhemoglobin Sodium Potassium Chloride Carbon Dioxide BUN Creatinine Glucose 167 H POC Glucose Calcium 8.3 L AST Total Creatine Kinase Albumin Triglycerides Influenza A (Rapid) 10/18/19 10/18/19 10/19/19 11:28 18:27 06:39 WBC RBC Hgb Hct MCV MCH RDW Lymph % (Auto) [place] % (Auto) Lymph # Seg Neutrophils % Seg Neuts % (Manual) Monocytes % (Manual) Lymphocytes # (Manual) Monocytes # (Manual) POC ABG pH 7.461 H 7.487 H ABG pH POC ABG pCO2 53.4 H 52.8 H 51.7 H POC ABG pO2 70 L 71 L ABG pO2 ABG HCO3 ABG O2 Saturation ABG Base Excess ABG Hemoglobin Oxyhemoglobin Sodium Potassium Chloride Carbon Dioxide BUN Creatinine Glucose POC Glucose Calcium AST Total Creatine Kinase Albumin Triglycerides Influenza A (Rapid) 10/19/19 10/20/19 10/20/19 23:25 05:31 09:08 WBC RBC Hgb Hct MCV MCH RDW Lymph % (Auto) [place] % (Auto) Lymph # Seg Neutrophils % Seg Neuts % (Manual) Monocytes % (Manual) Lymphocytes # (Manual) Monocytes # (Manual) POC ABG pH ABG pH POC ABG pCO2 POC ABG pO2 ABG pO2 ABG HCO3 ABG O2 Saturation ABG Base Excess ABG Hemoglobin Oxyhemoglobin Sodium Potassium Chloride Carbon Dioxide BUN Creatinine Glucose POC Glucose 203 H 144 H 163 H Calcium AST Total Creatine Kinase Albumin Triglycerides Influenza A (Rapid) 10/20/19 10/20/19 10/20/19 10:25 13:22 14:51 WBC RBC Hgb Hct MCV MCH RDW Lymph % (Auto) [place] % (Auto) Lymph # Seg Neutrophils % Seg Neuts % (Manual) Monocytes % (Manual) Lymphocytes # (Manual) Monocytes # (Manual) POC ABG pH 7.632 H ABG pH POC ABG pCO2 POC ABG pO2 74 L ABG pO2 ABG HCO3 ABG O2 Saturation ABG Base Excess ABG Hemoglobin Oxyhemoglobin Sodium 147 H Potassium Chloride Carbon Dioxide 31 H BUN Creatinine 0.5 L Glucose 154 H POC Glucose 178 H Calcium 8.2 L AST Total Creatine Kinase Albumin Triglycerides Influenza A (Rapid) 10/20/19 10/20/19 10/20/19 14:51 17:16 21:30 WBC 11.2 H RBC Hgb Hct MCV 78 L MCH 25 L RDW 23.9 H Lymph % (Auto) [place] % (Auto) Lymph # Seg Neutrophils % Seg Neuts % (Manual) Monocytes % (Manual) Lymphocytes # (Manual) Monocytes # (Manual) POC ABG pH ABG pH POC ABG pCO2 POC ABG pO2 ABG pO2 ABG HCO3 ABG O2 Saturation ABG Base Excess ABG Hemoglobin Oxyhemoglobin Sodium Potassium Chloride Carbon Dioxide BUN Creatinine Glucose POC Glucose 143 H 152 H Calcium AST Total Creatine Kinase Albumin Triglycerides Influenza A (Rapid) 10/20/19 10/21/19 10/21/19 22:52 05:55 08:27 WBC RBC Hgb Hct MCV MCH RDW Lymph % (Auto) [place] % (Auto) Lymph # Seg Neutrophils % Seg Neuts % (Manual) Monocytes % (Manual) Lymphocytes # (Manual) Monocytes # (Manual) POC ABG pH ABG pH POC ABG pCO2 POC ABG pO2 ABG pO2 ABG HCO3 ABG O2 Saturation ABG Base Excess ABG Hemoglobin Oxyhemoglobin Sodium Potassium Chloride Carbon Dioxide BUN Creatinine Glucose POC Glucose 179 H 115 H 131 H Calcium AST Total Creatine Kinase Albumin Triglycerides Influenza A (Rapid) 10/21/19 10/21/19 10/21/19 11:52 16:23 23:38 WBC RBC Hgb Hct MCV MCH RDW Lymph % (Auto) [place] % (Auto) Lymph # Seg Neutrophils % Seg Neuts % (Manual) Monocytes % (Manual) Lymphocytes # (Manual) Monocytes # (Manual) POC ABG pH ABG pH POC ABG pCO2 POC ABG pO2 ABG pO2 ABG HCO3 ABG O2 Saturation ABG Base Excess ABG Hemoglobin Oxyhemoglobin Sodium Potassium Chloride Carbon Dioxide BUN Creatinine Glucose POC Glucose 122 H 120 H 115 H Calcium AST Total Creatine Kinase Albumin Triglycerides Influenza A (Rapid) 10/22/19 10/22/19 10/22/19 00:35 05:19 06:10 WBC RBC Hgb Hct MCV MCH 25 L RDW 22.8 H Lymph % (Auto) [place] % (Auto) Lymph # Seg Neutrophils % Seg Neuts % (Manual) Monocytes % (Manual) Lymphocytes # (Manual) Monocytes # (Manual) POC ABG pH ABG pH 7.520 H POC ABG pCO2 POC ABG pO2 ABG pO2 64.4 L ABG HCO3 36.8 H ABG O2 Saturation ABG Base Excess 12.6 H ABG Hemoglobin 10.4 L Oxyhemoglobin Sodium Potassium Chloride Carbon Dioxide BUN Creatinine Glucose POC Glucose 108 H Calcium AST Total Creatine Kinase Albumin Triglycerides Influenza A (Rapid) 10/22/19 10/24/19 10/25/19 15:40 05:49 04:20 WBC RBC Hgb Hct MCV MCH RDW Lymph % (Auto) [place] % (Auto) Lymph # Seg Neutrophils % Seg Neuts % (Manual) Monocytes % (Manual) Lymphocytes # (Manual) Monocytes # (Manual) POC ABG pH 7.454 H ABG pH POC ABG pCO2 64.1 H 63.5 H POC ABG pO2 73 L ABG pO2 ABG HCO3 ABG O2 Saturation ABG Base Excess ABG Hemoglobin Oxyhemoglobin Sodium 136 L D Potassium Chloride 97.6 L Carbon Dioxide BUN 19 H Creatinine Glucose 125 H POC Glucose Calcium AST Total Creatine Kinase Albumin Triglycerides Influenza A (Rapid) 10/25/19 10/25/19 10/26/19 05:35 05:35 04:19 WBC RBC Hgb 10.0 L Hct MCV MCH 25 L RDW 22.0 H Lymph % (Auto) [place] % (Auto) Lymph # Seg Neutrophils % Seg Neuts % (Manual) Monocytes % (Manual) Lymphocytes # (Manual) Monocytes # (Manual) POC ABG pH ABG pH POC ABG pCO2 66.1 H POC ABG pO2 75 L ABG pO2 ABG HCO3 ABG O2 Saturation ABG Base Excess ABG Hemoglobin Oxyhemoglobin Sodium 147 H D Potassium Chloride Carbon Dioxide 34 H D BUN 23 H Creatinine 0.5 L Glucose 184 H POC Glucose Calcium AST Total Creatine Kinase Albumin Triglycerides Influenza A (Rapid) 10/26/19 10/26/19 10/26/19 05:20 05:20 12:44 WBC RBC Hgb 9.5 L Hct MCV MCH 25 L RDW 22.3 H Lymph % (Auto) [place] % (Auto) Lymph # Seg Neutrophils % Seg Neuts % (Manual) Monocytes % (Manual) Lymphocytes # (Manual) Monocytes # (Manual) POC ABG pH 7.501 H ABG pH POC ABG pCO2 54.7 H POC ABG pO2 69 L ABG pO2 ABG HCO3 ABG O2 Saturation ABG Base Excess ABG Hemoglobin Oxyhemoglobin Sodium 152 H Potassium Chloride Carbon Dioxide 33 H BUN 27 H Creatinine 0.6 L Glucose 135 H POC Glucose Calcium AST Total Creatine Kinase Albumin Triglycerides Influenza A (Rapid) 10/27/19 10/27/19 10/27/19 03:30 05:40 05:40 WBC RBC 3.62 L Hgb 9.4 L Hct 29.1 L MCV MCH 26 L RDW 21.7 H Lymph % (Auto) [place] % (Auto) Lymph # Seg Neutrophils % Seg Neuts % (Manual) Monocytes % (Manual) Lymphocytes # (Manual) Monocytes # (Manual) POC ABG pH ABG pH 7.472 H POC ABG pCO2 POC ABG pO2 ABG pO2 ABG HCO3 38.2 H ABG O2 Saturation ABG Base Excess 13.3 H ABG Hemoglobin 6.5 L Oxyhemoglobin Sodium 149 H Potassium 3.3 L Chloride Carbon Dioxide 31 H BUN 25 H Creatinine 0.5 L Glucose 142 H POC Glucose Calcium 8.2 L AST Total Creatine Kinase Albumin Triglycerides Influenza A (Rapid) 10/27/19 10/28/19 10/28/19 05:40 05:19 05:56 WBC RBC Hgb Hct MCV MCH RDW Lymph % (Auto) [place] % (Auto) Lymph # Seg Neutrophils % Seg Neuts % (Manual) Monocytes % (Manual) Lymphocytes # (Manual) Monocytes # (Manual) POC ABG pH 7.489 H ABG pH POC ABG pCO2 51.0 H POC ABG pO2 71 L ABG pO2 ABG HCO3 ABG O2 Saturation ABG Base Excess ABG Hemoglobin Oxyhemoglobin Sodium 153 H Potassium Chloride Carbon Dioxide 31 H BUN Creatinine 0.4 L Glucose 111 H POC Glucose Calcium 8.1 L AST Total Creatine Kinase Albumin Triglycerides 279 H Influenza A (Rapid) 10/29/19 10/29/19 10/30/19 03:54 04:21 04:48 WBC RBC Hgb Hct MCV MCH RDW Lymph % (Auto) [place] % (Auto) Lymph # Seg Neutrophils % Seg Neuts % (Manual) Monocytes % (Manual) Lymphocytes # (Manual) Monocytes # (Manual) POC ABG pH 7.506 H 7.508 H ABG pH POC ABG pCO2 53.6 H 49.6 H POC ABG pO2 ABG pO2 ABG HCO3 ABG O2 Saturation ABG Base Excess ABG Hemoglobin Oxyhemoglobin Sodium 150 H Potassium Chloride Carbon Dioxide BUN Creatinine 0.4 L Glucose 137 H POC Glucose Calcium AST Total Creatine Kinase Albumin Triglycerides Influenza A (Rapid) 10/30/19 10/30/19 10/31/19 09:54 21:08 00:17 WBC RBC Hgb Hct MCV MCH RDW Lymph % (Auto) [place] % (Auto) Lymph # Seg Neutrophils % Seg Neuts % (Manual) Monocytes % (Manual) Lymphocytes # (Manual) Monocytes # (Manual) POC ABG pH 7.455 H ABG pH POC ABG pCO2 58.6 H POC ABG pO2 74 L ABG pO2 ABG HCO3 ABG O2 Saturation ABG Base Excess ABG Hemoglobin Oxyhemoglobin Sodium 148 H Potassium Chloride Carbon Dioxide BUN Creatinine 0.4 L Glucose 156 H POC Glucose 160 H Calcium AST Total Creatine Kinase Albumin Triglycerides Influenza A (Rapid) 10/31/19 10/31/19 10/31/19 04:42 08:02 16:24 WBC RBC Hgb Hct MCV MCH RDW Lymph % (Auto) [place] % (Auto) Lymph # Seg Neutrophils % Seg Neuts % (Manual) Monocytes % (Manual) Lymphocytes # (Manual) Monocytes # (Manual) POC ABG pH ABG pH POC ABG pCO2 62.2 H POC ABG pO2 76 L ABG pO2 ABG HCO3 ABG O2 Saturation ABG Base Excess ABG Hemoglobin Oxyhemoglobin Sodium 149 H Potassium Chloride Carbon Dioxide BUN Creatinine 0.4 L Glucose 146 H POC Glucose 143 H Calcium AST Total Creatine Kinase Albumin Triglycerides Influenza A (Rapid) 11/01/19 11/01/19 11/01/19 04:25 05:30 05:30 WBC RBC Hgb 9.7 L Hct 30.1 L MCV MCH 26 L RDW 21.6 H Lymph % (Auto) [place] % (Auto) Lymph # Seg Neutrophils % Seg Neuts % (Manual) Monocytes % (Manual) 10.0 H Lymphocytes # (Manual) Monocytes # (Manual) 0.9 H POC ABG pH ABG pH POC ABG pCO2 POC ABG pO2 ABG pO2 67.0 L ABG HCO3 38.2 H ABG O2 Saturation 94.2 L ABG Base Excess 11.8 H ABG Hemoglobin 10.7 L Oxyhemoglobin 91.6 L Sodium 147 H Potassium Chloride Carbon Dioxide 31 H BUN Creatinine 0.4 L Glucose 136 H POC Glucose Calcium AST Total Creatine Kinase Albumin Triglycerides Influenza A (Rapid) 11/01/19 11/02/19 11/02/19 10:32 22:46 23:02 WBC RBC Hgb Hct MCV MCH RDW Lymph % (Auto) [place] % (Auto) Lymph # Seg Neutrophils % Seg Neuts % (Manual) Monocytes % (Manual) Lymphocytes # (Manual) Monocytes # (Manual) POC ABG pH 7.465 H 7.522 H ABG pH POC ABG pCO2 56.8 H 50.0 H POC ABG pO2 71 L ABG pO2 ABG HCO3 ABG O2 Saturation ABG Base Excess ABG Hemoglobin Oxyhemoglobin Sodium Potassium Chloride Carbon Dioxide BUN Creatinine Glucose POC Glucose 126 H Calcium AST Total Creatine Kinase Albumin Triglycerides Influenza A (Rapid) 11/04/19 11/05/19 05:57 04:22 WBC RBC Hgb Hct MCV MCH RDW Lymph % (Auto) [place] % (Auto) Lymph # Seg Neutrophils % Seg Neuts % (Manual) Monocytes % (Manual) Lymphocytes # (Manual) Monocytes # (Manual) POC ABG pH ABG pH POC ABG pCO2 POC ABG pO2 ABG pO2 ABG HCO3 ABG O2 Saturation ABG Base Excess ABG Hemoglobin Oxyhemoglobin Sodium 148 H Potassium 3.1 L 3.4 L Chloride 97.4 L Carbon Dioxide 34 H 31 H BUN Creatinine 0.5 L 0.4 L Glucose 128 H 110 H POC Glucose Calcium AST Total Creatine Kinase Albumin Triglycerides Influenza A (Rapid) Allied health notes reviewed: RT
[2019-11-07] MEDS: SODIUM CHLORIDE 0.9% IV SCH (14:40)
[2019-11-07] MEDS: CEFEPIME IV SCH (14:40)
--- NOTE | 2019-11-07 15:29 | Progress Note ---
Assessment and Plan Patient 49yo female with history of HTN recently treated for pneumonia and influenza. Patient is awake and alert. Patients ABG 11/02/2019 pH 7.52/ pCO2 50/ pO2 71/ HCO3 41/ O2 Sat 95%/ FiO2 50% Chest X-ray Reported 11/01/2019 Diffuse bilateral pulmonary opacities persist unchanged. Small bilateral pleural effusions are stable. No pneumothorax. Stable appearance of the chest radiograph. Social History: Smoking, alcohol, & drug history is not known at this time. Patient unmarried and has one daughter Patient is currently on 2 L via nasal canula with O2 saturation of 94%. BIPAP on standby in room. Patient is afebrile with no leukocytosis. - Patient Problems (1) Pleural effusion Current Visit: Yes Status: Acute Plan to address problem: small bilateral pleural effusions Follow with repeat chest xray (2) Acute and chronic respiratory failure with hypercapnia Current Visit: Yes Status: Acute Plan to address problem: 1. On 2 L O2 via nasal canula 2. Albuterol/Atrovent aerosol treatments q6 PRN shortness of breath. 3. Brovanna and Budesonide aerosol treatments q12 4. Continue Cefepime 5. Continue SC Heparin 6. Continue Protonix (3) Morbid obesity Current Visit: Yes Status: Acute Plan to address problem: Recommend to lose weight Recommend sleep study as outpatient Subjective Date of service: 11/07/19 Principal diagnosis: Ac. hypoxic-hypercapnic resp failure; Influenza; extreme obesity; ? DEAN Interval history: Patient 49yo female with history of HTN recently treated for pneumonia and influenza. Patient is awake and alert. Patients ABG 11/02/2019 pH 7.52/ pCO2 50/ pO2 71/ HCO3 41/ O2 Sat 95%/ FiO2 50% Chest X-ray Reported 11/01/2019 Diffuse bilateral pulmonary opacities persist unchanged. Small bilateral pleural effusions are stable. No pneumothorax. Stable appearance of the chest radiograph. Social History: Smoking, alcohol, & drug history is not known at this time. Patient unmarried and has one daughter Patient is currently on 2 L via nasal canula with O2 saturation of 94%. BIPAP on standby in room. Patient is afebrile with no leukocytosis. Objective Vital Signs - 12hr 11/07/19 11/07/19 11/07/19 05:04 08:15 08:35 Temperature 98.5 F Pulse Rate 84 Pulse Rate [ 98 H Anterior Bilateral Throughout] Respiratory 18 Rate Respiratory 20 Rate [Anterior Bilateral Throughout] Blood Pressure 135/74 O2 Sat by Pulse 98 94 Oximetry 11/07/19 11/07/19 09:41 11:48 Temperature 99.2 F Pulse Rate 94 H 95 H Pulse Rate [ Anterior Bilateral Throughout] Respiratory 18 Rate Respiratory Rate [Anterior Bilateral Throughout] Blood Pressure 138/71 128/73 O2 Sat by Pulse 94 Oximetry Constitutional: no acute distress, alert Eyes: non-icteric ENT: oropharynx moist Neck: supple, no lymphadenopathy, no JVD, other (short neck, large circumference) Effort: mildly labored Ascultation: Bilateral: diminished breath sounds, rhonchi Percussion: Bilateral: not dull Cardiovascular: regular rate and rhythm, other (S1,S2) Gastrointestinal: normoactive bowel sounds, soft, non-tender, non-distended Integumentary: normal Extremities: no cyanosis, no edema, pink and warm, pulses normal Neurologic: normal mental status, non-focal exam (grossly), pupils equal and round, CN II-XII normal, other (weak) Psychiatric: anxious CBC and BMP: 11/01/19 05:30 11/07/19 14:29 ABG, PT/INR, D-dimer: ABG POC ABG pH 7.522 (7.35-7.45) H 11/02/19 23:02 ABG pH 7.419 pH Units (7.350-7.450) 11/01/19 04:25 POC ABG pCO2 50.0 (35-45) H 11/02/19 23:02 ABG pCO2 60.3 mm Hg 11/01/19 04:25 POC ABG pO2 71 (80-105) L 11/02/19 23:02 ABG pO2 67.0 mm Hg (80.0-90.0) L 11/01/19 04:25 POC ABG HCO3 41.0 (22-26 mml/L) 11/02/19 23:02 POC ABG Total CO2 42 (23-27mmol/L) 11/02/19 23:02 POC ABG O2 Sat 95 11/02/19 23:02 ABG O2 Saturation 94.2 % (95.0-99.0) L 11/01/19 04:25 Abnormal lab findings: Abnormal Labs 12/28/19 12/28/19 12/28/19 20:57 20:57 Unknown WBC 4.0 L RBC Hgb Hct MCV 78 L MCH 25 L RDW 24.7 H Lymph % (Auto) [place] % (Auto) Lymph # Seg Neutrophils % Seg Neuts % (Manual) 77.0 H Monocytes % (Manual) 9.0 H Lymphocytes # (Manual) 0.6 L Monocytes # (Manual) POC ABG pH ABG pH POC ABG pCO2 POC ABG pO2 ABG pO2 ABG HCO3 ABG O2 Saturation ABG Base Excess ABG Hemoglobin Oxyhemoglobin Sodium Potassium 3.5 L Chloride Carbon Dioxide BUN Creatinine 0.6 L Glucose 147 H POC Glucose Calcium 7.9 L AST 57 H Total Creatine Kinase 857 H Albumin 3.0 L Triglycerides Influenza A (Rapid) Positive A 10/18/19 10/18/19 10/18/19 05:21 05:21 09:19 WBC 3.3 L RBC Hgb Hct MCV MCH 25 L RDW 24.3 H Lymph % (Auto) 12.5 L [place] % (Auto) 7.9 H Lymph # 0.4 L Seg Neutrophils % 78.6 H Seg Neuts % (Manual) Monocytes % (Manual) Lymphocytes # (Manual) Monocytes # (Manual) POC ABG pH ABG pH POC ABG pCO2 POC ABG pO2 ABG pO2 131.3 H ABG HCO3 30.2 H ABG O2 Saturation ABG Base Excess 4.5 H ABG Hemoglobin 10.7 L Oxyhemoglobin Sodium Potassium Chloride Carbon Dioxide BUN Creatinine Glucose 167 H POC Glucose Calcium 8.3 L AST Total Creatine Kinase Albumin Triglycerides Influenza A (Rapid) 10/18/19 10/18/19 10/19/19 11:28 18:27 06:39 WBC RBC Hgb Hct MCV MCH RDW Lymph % (Auto) [place] % (Auto) Lymph # Seg Neutrophils % Seg Neuts % (Manual) Monocytes % (Manual) Lymphocytes # (Manual) Monocytes # (Manual) POC ABG pH 7.461 H 7.487 H ABG pH POC ABG pCO2 53.4 H 52.8 H 51.7 H POC ABG pO2 70 L 71 L ABG pO2 ABG HCO3 ABG O2 Saturation ABG Base Excess ABG Hemoglobin Oxyhemoglobin Sodium Potassium Chloride Carbon Dioxide BUN Creatinine Glucose POC Glucose Calcium AST Total Creatine Kinase Albumin Triglycerides Influenza A (Rapid) 10/19/19 10/20/19 10/20/19 23:25 05:31 09:08 WBC RBC Hgb Hct MCV MCH RDW Lymph % (Auto) [place] % (Auto) Lymph # Seg Neutrophils % Seg Neuts % (Manual) Monocytes % (Manual) Lymphocytes # (Manual) Monocytes # (Manual) POC ABG pH ABG pH POC ABG pCO2 POC ABG pO2 ABG pO2 ABG HCO3 ABG O2 Saturation ABG Base Excess ABG Hemoglobin Oxyhemoglobin Sodium Potassium Chloride Carbon Dioxide BUN Creatinine Glucose POC Glucose 203 H 144 H 163 H Calcium AST Total Creatine Kinase Albumin Triglycerides Influenza A (Rapid) 10/20/19 10/20/19 10/20/19 10:25 13:22 14:51 WBC RBC Hgb Hct MCV MCH RDW Lymph % (Auto) [place] % (Auto) Lymph # Seg Neutrophils % Seg Neuts % (Manual) Monocytes % (Manual) Lymphocytes # (Manual) Monocytes # (Manual) POC ABG pH 7.632 H ABG pH POC ABG pCO2 POC ABG pO2 74 L ABG pO2 ABG HCO3 ABG O2 Saturation ABG Base Excess ABG Hemoglobin Oxyhemoglobin Sodium 147 H Potassium Chloride Carbon Dioxide 31 H BUN Creatinine 0.5 L Glucose 154 H POC Glucose 178 H Calcium 8.2 L AST Total Creatine Kinase Albumin Triglycerides Influenza A (Rapid) 10/20/19 10/20/19 10/20/19 14:51 17:16 21:30 WBC 11.2 H RBC Hgb Hct MCV 78 L MCH 25 L RDW 23.9 H Lymph % (Auto) [place] % (Auto) Lymph # Seg Neutrophils % Seg Neuts % (Manual) Monocytes % (Manual) Lymphocytes # (Manual) Monocytes # (Manual) POC ABG pH ABG pH POC ABG pCO2 POC ABG pO2 ABG pO2 ABG HCO3 ABG O2 Saturation ABG Base Excess ABG Hemoglobin Oxyhemoglobin Sodium Potassium Chloride Carbon Dioxide BUN Creatinine Glucose POC Glucose 143 H 152 H Calcium AST Total Creatine Kinase Albumin Triglycerides Influenza A (Rapid) 10/20/19 10/21/19 10/21/19 22:52 05:55 08:27 WBC RBC Hgb Hct MCV MCH RDW Lymph % (Auto) [place] % (Auto) Lymph # Seg Neutrophils % Seg Neuts % (Manual) Monocytes % (Manual) Lymphocytes # (Manual) Monocytes # (Manual) POC ABG pH ABG pH POC ABG pCO2 POC ABG pO2 ABG pO2 ABG HCO3 ABG O2 Saturation ABG Base Excess ABG Hemoglobin Oxyhemoglobin Sodium Potassium Chloride Carbon Dioxide BUN Creatinine Glucose POC Glucose 179 H 115 H 131 H Calcium AST Total Creatine Kinase Albumin Triglycerides Influenza A (Rapid) 10/21/19 10/21/19 10/21/19 11:52 16:23 23:38 WBC RBC Hgb Hct MCV MCH RDW Lymph % (Auto) [place] % (Auto) Lymph # Seg Neutrophils % Seg Neuts % (Manual) Monocytes % (Manual) Lymphocytes # (Manual) Monocytes # (Manual) POC ABG pH ABG pH POC ABG pCO2 POC ABG pO2 ABG pO2 ABG HCO3 ABG O2 Saturation ABG Base Excess ABG Hemoglobin Oxyhemoglobin Sodium Potassium Chloride Carbon Dioxide BUN Creatinine Glucose POC Glucose 122 H 120 H 115 H Calcium AST Total Creatine Kinase Albumin Triglycerides Influenza A (Rapid) 10/22/19 10/22/19 10/22/19 00:35 05:19 06:10 WBC RBC Hgb Hct MCV MCH 25 L RDW 22.8 H Lymph % (Auto) [place] % (Auto) Lymph # Seg Neutrophils % Seg Neuts % (Manual) Monocytes % (Manual) Lymphocytes # (Manual) Monocytes # (Manual) POC ABG pH ABG pH 7.520 H POC ABG pCO2 POC ABG pO2 ABG pO2 64.4 L ABG HCO3 36.8 H ABG O2 Saturation ABG Base Excess 12.6 H ABG Hemoglobin 10.4 L Oxyhemoglobin Sodium Potassium Chloride Carbon Dioxide BUN Creatinine Glucose POC Glucose 108 H Calcium AST Total Creatine Kinase Albumin Triglycerides Influenza A (Rapid) 10/22/19 10/24/19 10/25/19 15:40 05:49 04:20 WBC RBC Hgb Hct MCV MCH RDW Lymph % (Auto) [place] % (Auto) Lymph # Seg Neutrophils % Seg Neuts % (Manual) Monocytes % (Manual) Lymphocytes # (Manual) Monocytes # (Manual) POC ABG pH 7.454 H ABG pH POC ABG pCO2 64.1 H 63.5 H POC ABG pO2 73 L ABG pO2 ABG HCO3 ABG O2 Saturation ABG Base Excess ABG Hemoglobin Oxyhemoglobin Sodium 136 L D Potassium Chloride 97.6 L Carbon Dioxide BUN 19 H Creatinine Glucose 125 H POC Glucose Calcium AST Total Creatine Kinase Albumin Triglycerides Influenza A (Rapid) 10/25/19 10/25/19 10/26/19 05:35 05:35 04:19 WBC RBC Hgb 10.0 L Hct MCV MCH 25 L RDW 22.0 H Lymph % (Auto) [place] % (Auto) Lymph # Seg Neutrophils % Seg Neuts % (Manual) Monocytes % (Manual) Lymphocytes # (Manual) Monocytes # (Manual) POC ABG pH ABG pH POC ABG pCO2 66.1 H POC ABG pO2 75 L ABG pO2 ABG HCO3 ABG O2 Saturation ABG Base Excess ABG Hemoglobin Oxyhemoglobin Sodium 147 H D Potassium Chloride Carbon Dioxide 34 H D BUN 23 H Creatinine 0.5 L Glucose 184 H POC Glucose Calcium AST Total Creatine Kinase Albumin Triglycerides Influenza A (Rapid) 10/26/19 10/26/19 10/26/19 05:20 05:20 12:44 WBC RBC Hgb 9.5 L Hct MCV MCH 25 L RDW 22.3 H Lymph % (Auto) [place] % (Auto) Lymph # Seg Neutrophils % Seg Neuts % (Manual) Monocytes % (Manual) Lymphocytes # (Manual) Monocytes # (Manual) POC ABG pH 7.501 H ABG pH POC ABG pCO2 54.7 H POC ABG pO2 69 L ABG pO2 ABG HCO3 ABG O2 Saturation ABG Base Excess ABG Hemoglobin Oxyhemoglobin Sodium 152 H Potassium Chloride Carbon Dioxide 33 H BUN 27 H Creatinine 0.6 L Glucose 135 H POC Glucose Calcium AST Total Creatine Kinase Albumin Triglycerides Influenza A (Rapid) 10/27/19 10/27/19 10/27/19 03:30 05:40 05:40 WBC RBC 3.62 L Hgb 9.4 L Hct 29.1 L MCV MCH 26 L RDW 21.7 H Lymph % (Auto) [place] % (Auto) Lymph # Seg Neutrophils % Seg Neuts % (Manual) Monocytes % (Manual) Lymphocytes # (Manual) Monocytes # (Manual) POC ABG pH ABG pH 7.472 H POC ABG pCO2 POC ABG pO2 ABG pO2 ABG HCO3 38.2 H ABG O2 Saturation ABG Base Excess 13.3 H ABG Hemoglobin 6.5 L Oxyhemoglobin Sodium 149 H Potassium 3.3 L Chloride Carbon Dioxide 31 H BUN 25 H Creatinine 0.5 L Glucose 142 H POC Glucose Calcium 8.2 L AST Total Creatine Kinase Albumin Triglycerides Influenza A (Rapid) 10/27/19 10/28/19 10/28/19 05:40 05:19 05:56 WBC RBC Hgb Hct MCV MCH RDW Lymph % (Auto) [place] % (Auto) Lymph # Seg Neutrophils % Seg Neuts % (Manual) Monocytes % (Manual) Lymphocytes # (Manual) Monocytes # (Manual) POC ABG pH 7.489 H ABG pH POC ABG pCO2 51.0 H POC ABG pO2 71 L ABG pO2 ABG HCO3 ABG O2 Saturation ABG Base Excess ABG Hemoglobin Oxyhemoglobin Sodium 153 H Potassium Chloride Carbon Dioxide 31 H BUN Creatinine 0.4 L Glucose 111 H POC Glucose Calcium 8.1 L AST Total Creatine Kinase Albumin Triglycerides 279 H Influenza A (Rapid) 10/29/19 10/29/19 10/30/19 03:54 04:21 04:48 WBC RBC Hgb Hct MCV MCH RDW Lymph % (Auto) [place] % (Auto) Lymph # Seg Neutrophils % Seg Neuts % (Manual) Monocytes % (Manual) Lymphocytes # (Manual) Monocytes # (Manual) POC ABG pH 7.506 H 7.508 H ABG pH POC ABG pCO2 53.6 H 49.6 H POC ABG pO2 ABG pO2 ABG HCO3 ABG O2 Saturation ABG Base Excess ABG Hemoglobin Oxyhemoglobin Sodium 150 H Potassium Chloride Carbon Dioxide BUN Creatinine 0.4 L Glucose 137 H POC Glucose Calcium AST Total Creatine Kinase Albumin Triglycerides Influenza A (Rapid) 10/30/19 10/30/19 10/31/19 09:54 21:08 00:17 WBC RBC Hgb Hct MCV MCH RDW Lymph % (Auto) [place] % (Auto) Lymph # Seg Neutrophils % Seg Neuts % (Manual) Monocytes % (Manual) Lymphocytes # (Manual) Monocytes # (Manual) POC ABG pH 7.455 H ABG pH POC ABG pCO2 58.6 H POC ABG pO2 74 L ABG pO2 ABG HCO3 ABG O2 Saturation ABG Base Excess ABG Hemoglobin Oxyhemoglobin Sodium 148 H Potassium Chloride Carbon Dioxide BUN Creatinine 0.4 L Glucose 156 H POC Glucose 160 H Calcium AST Total Creatine Kinase Albumin Triglycerides Influenza A (Rapid) 10/31/19 10/31/19 10/31/19 04:42 08:02 16:24 WBC RBC Hgb Hct MCV MCH RDW Lymph % (Auto) [place] % (Auto) Lymph # Seg Neutrophils % Seg Neuts % (Manual) Monocytes % (Manual) Lymphocytes # (Manual) Monocytes # (Manual) POC ABG pH ABG pH POC ABG pCO2 62.2 H POC ABG pO2 76 L ABG pO2 ABG HCO3 ABG O2 Saturation ABG Base Excess ABG Hemoglobin Oxyhemoglobin Sodium 149 H Potassium Chloride Carbon Dioxide BUN Creatinine 0.4 L Glucose 146 H POC Glucose 143 H Calcium AST Total Creatine Kinase Albumin Triglycerides Influenza A (Rapid) 11/01/19 11/01/19 11/01/19 04:25 05:30 05:30 WBC RBC Hgb 9.7 L Hct 30.1 L MCV MCH 26 L RDW 21.6 H Lymph % (Auto) [place] % (Auto) Lymph # Seg Neutrophils % Seg Neuts % (Manual) Monocytes % (Manual) 10.0 H Lymphocytes # (Manual) Monocytes # (Manual) 0.9 H POC ABG pH ABG pH POC ABG pCO2 POC ABG pO2 ABG pO2 67.0 L ABG HCO3 38.2 H ABG O2 Saturation 94.2 L ABG Base Excess 11.8 H ABG Hemoglobin 10.7 L Oxyhemoglobin 91.6 L Sodium 147 H Potassium Chloride Carbon Dioxide 31 H BUN Creatinine 0.4 L Glucose 136 H POC Glucose Calcium AST Total Creatine Kinase Albumin Triglycerides Influenza A (Rapid) 11/01/19 11/02/19 11/02/19 10:32 22:46 23:02 WBC RBC Hgb Hct MCV MCH RDW Lymph % (Auto) [place] % (Auto) Lymph # Seg Neutrophils % Seg Neuts % (Manual) Monocytes % (Manual) Lymphocytes # (Manual) Monocytes # (Manual) POC ABG pH 7.465 H 7.522 H ABG pH POC ABG pCO2 56.8 H 50.0 H POC ABG pO2 71 L ABG pO2 ABG HCO3 ABG O2 Saturation ABG Base Excess ABG Hemoglobin Oxyhemoglobin Sodium Potassium Chloride Carbon Dioxide BUN Creatinine Glucose POC Glucose 126 H Calcium AST Total Creatine Kinase Albumin Triglycerides Influenza A (Rapid) 11/04/19 11/05/19 05:57 04:22 WBC RBC Hgb Hct MCV MCH RDW Lymph % (Auto) [place] % (Auto) Lymph # Seg Neutrophils % Seg Neuts % (Manual) Monocytes % (Manual) Lymphocytes # (Manual) Monocytes # (Manual) POC ABG pH ABG pH POC ABG pCO2 POC ABG pO2 ABG pO2 ABG HCO3 ABG O2 Saturation ABG Base Excess ABG Hemoglobin Oxyhemoglobin Sodium 148 H Potassium 3.1 L 3.4 L Chloride 97.4 L Carbon Dioxide 34 H 31 H BUN Creatinine 0.5 L 0.4 L Glucose 128 H 110 H POC Glucose Calcium AST Total Creatine Kinase Albumin Triglycerides Influenza A (Rapid) Allied health notes reviewed: RT
[2019-11-08] MEDS: HEPARIN 5,000 UNIT/1 ML VIAL SUB-Q SCH ×3 (05:41→22:17)
[2019-11-08] MEDS: IPRATROPIUM/ALBUTEROL SULFATE 3 ML AMPUL.NEB IH SCH ×3 (08:45→20:05)
--- NOTE | 2019-11-08 09:39 | Progress Note ---
Assessment and Plan Assessment and plan: Acute hypoxemic respiratory failure. Respiratory/tracheal aspirate reveals Enterobacter. The patient failed BiPAP and required intubation on 10/23/2019. Patient now extubated. Pulmonary following. Sepsis. Etiology secondary to pneumonia/influenza A. Continue antibiotics per ID. Influenza A. Completed high dose prolonged Tamiflu course. Bilateral pneumonia. resp culture with GNR, patient on Cefepime. Acute on chronic diastolic heart failure. Echocardiogram revealed The left ventricular size is mildly dilated, mild to moderate concentric LVH, est EF 40- 45%, left atrium is mildly dilated, trace MR, mild TR, mild to moderate Pulmonary hypertension, RVSP is calculated at 42 mmHg. Obesity hypoventilation syndrome/DEAN. Outpatient evaluation for sleep apnea Morbid obesity. BMI is 83. Weight loss and life style modifications on discharge. May need surgical bariatric intervention Agitation on and off, now resolved. calm today CT head could not be done because of body habitus. Debility PT eval ongoing Hopefully dc soon. Awaiting PT recommendation home with HH versus facility. History Interval history: Dizziness on sitting up Generalized weakness Shortness of breath Hospitalist Physical - Physical exam Narrative exam: GEN: Not in acute distress, lying in bed, morbidly obese HEENT: Normocephalic, atraumatic, Neck: supple, No JVD Lungs: Clear to auscultation bilaterally, no wheeze, heart;S1 and S2 reg, no murmurs Abd:soft, non tender, non distended, normal bowel sounds Ext: No edema, no clubbing, no cyanosis Neuro: AAO X 3, no focal neurological signs, moves all ext - Constitutional Vitals: Temp Pulse Resp BP Pulse Ox 98.9 F 89 20 127/54 96 11/08/19 06:29 11/08/19 06:29 11/08/19 06:29 11/08/19 06:29 11/08/19 06:29 General appearance: Present: obese Results - Labs CBC & Chem 7: 11/01/19 05:30 11/07/19 14:29 Labs: Laboratory Last Values WBC 8.5 K/mm3 (4.5-11.0) 11/01/19 05:30 RBC 3.67 M/mm3 (3.65-5.03) 11/01/19 05:30 Hgb 9.7 gm/dl (10.1-14.3) L 11/01/19 05:30 Hct 30.1 % (30.3-42.9) L 11/01/19 05:30 MCV 82 fl (79-97) 11/01/19 05:30 MCH 26 pg (28-32) L 11/01/19 05:30 MCHC 32 % (30-34) 11/01/19 05:30 RDW 21.6 % (13.2-15.2) H 11/01/19 05:30 Plt Count 356 K/mm3 (140-440) 11/01/19 05:30 Lymph % (Auto) 12.5 % (13.4-35.0) L 10/18/19 05:21 [place] % (Auto) 7.9 % (0.0-7.3) H 10/18/19 05:21 Eos % (Auto) 0.0 % (0.0-4.3) 10/18/19 05:21 Baso % (Auto) 1.0 % (0.0-1.8) 10/18/19 05:21 Lymph # 0.4 K/mm3 (1.2-5.4) L 10/18/19 05:21 [place] # 0.3 K/mm3 (0.0-0.8) 10/18/19 05:21 Eos # 0.0 K/mm3 (0.0-0.4) 10/18/19 05:21 Baso # 0.0 K/mm3 (0.0-0.1) 10/18/19 05:21 Add Manual Diff Complete 11/01/19 05:30 Total Counted 100 11/01/19 05:30 Seg Neutrophils % 78.6 % (40.0-70.0) H 10/18/19 05:21 Seg Neuts % (Manual) 70.0 % (40.0-70.0) 11/01/19 05:30 Band Neutrophils % 1.0 % 11/01/19 05:30 Lymphocytes % (Manual) 17.0 % (13.4-35.0) 11/01/19 05:30 Reactive Lymphs % (Man) 0 % 11/01/19 05:30 Monocytes % (Manual) 10.0 % (0.0-7.3) H 11/01/19 05:30 Eosinophils % (Manual) 1.0 % (0.0-4.3) 11/01/19 05:30 Basophils % (Manual) 0 % (0.0-1.8) 11/01/19 05:30 Metamyelocytes % 1.0 % 11/01/19 05:30 Myelocytes % 0 % 11/01/19 05:30 Promyelocytes % 0 % 11/01/19 05:30 Blast Cells % 0 % 11/01/19 05:30 Nucleated RBC % Not Reportable 11/01/19 05:30 Seg Neutrophils # 2.6 K/mm3 (1.8-7.7) 10/18/19 05:21 Seg Neutrophils # Man 6.0 K/mm3 (1.8-7.7) 11/01/19 05:30 Band Neutrophils # 0.1 K/mm3 11/01/19 05:30 Lymphocytes # (Manual) 1.4 K/mm3 (1.2-5.4) 11/01/19 05:30 Abs React Lymphs (Man) 0.0 K/mm3 11/01/19 05:30 Monocytes # (Manual) 0.9 K/mm3 (0.0-0.8) H 11/01/19 05:30 Eosinophils # (Manual) 0.1 K/mm3 (0.0-0.4) 11/01/19 05:30 Basophils # (Manual) 0.0 K/mm3 (0.0-0.1) 11/01/19 05:30 Metamyelocytes # 0.1 K/mm3 11/01/19 05:30 Myelocytes # 0.0 K/mm3 11/01/19 05:30 Promyelocytes # 0.0 K/mm3 11/01/19 05:30 Blast Cells # 0.0 K/mm3 11/01/19 05:30 WBC Morphology Not Reportable 11/01/19 05:30 Hypersegmented Neuts Not Reportable 11/01/19 05:30 Hyposegmented Neuts Not Reportable 11/01/19 05:30 Hypogranular Neuts Not Reportable 11/01/19 05:30 Smudge Cells Not Reportable 11/01/19 05:30 Toxic Granulation Not Reportable 11/01/19 05:30 Toxic Vacuolation Not Reportable 11/01/19 05:30 Dohle Bodies Not Reportable 11/01/19 05:30 Pelger-Huet Anomaly Not Reportable 11/01/19 05:30 Krista Rods Not Reportable 11/01/19 05:30 Platelet Estimate Consistent w auto 11/01/19 05:30 Clumped Platelets Not Reportable 11/01/19 05:30 Plt Clumps, EDTA Not Reportable 11/01/19 05:30 Large Platelets Not Reportable 11/01/19 05:30 Giant Platelets Not Reportable 11/01/19 05:30 Platelet Satelliting Not Reportable 11/01/19 05:30 Plt Morphology Comment Not Reportable 11/01/19 05:30 RBC Morphology Not Reportable 11/01/19 05:30 Dimorphic RBCs Not Reportable 11/01/19 05:30 Polychromasia Rare 11/01/19 05:30 Hypochromasia Not Reportable 11/01/19 05:30 Poikilocytosis Not Reportable 11/01/19 05:30 Anisocytosis 1+ 11/01/19 05:30 Microcytosis Not Reportable 11/01/19 05:30 Macrocytosis Not Reportable 11/01/19 05:30 Spherocytes Not Reportable 11/01/19 05:30 Pappenheimer Bodies Not Reportable 11/01/19 05:30 Sickle Cells Not Reportable 11/01/19 05:30 Target Cells Not Reportable 11/01/19 05:30 Tear Drop Cells Not Reportable 11/01/19 05:30 Ovalocytes Not Reportable 11/01/19 05:30 Stomatocytes 2+ 11/01/19 05:30 Helmet Cells Not Reportable 11/01/19 05:30 Gallagher-[place]wood Bodies Not Reportable 11/01/19 05:30 Ramer Rings Not Reportable 11/01/19 05:30 [place] Cells Not Reportable 11/01/19 05:30 Bite Cells Not Reportable 11/01/19 05:30 Crenated Cell Not Reportable 11/01/19 05:30 Elliptocytes Not Reportable 11/01/19 05:30 Acanthocytes (Spur) Not Reportable 11/01/19 05:30 Rouleaux Not Reportable 11/01/19 05:30 Hemoglobin C Crystals Not Reportable 11/01/19 05:30 Schistocytes Not Reportable 11/01/19 05:30 Malaria parasites Not Reportable 11/01/19 05:30 Alejandro Bodies Not Reportable 11/01/19 05:30 Hem Pathologist Commnt No 11/01/19 05:30 POC ABG pH 7.522 (7.35-7.45) H 11/02/19 23:02 ABG pH 7.419 pH Units (7.350-7.450) 11/01/19 04:25 POC ABG pCO2 50.0 (35-45) H 11/02/19 23:02 ABG pCO2 60.3 mm Hg 11/01/19 04:25 POC ABG pO2 71 (80-105) L 11/02/19 23:02 ABG pO2 67.0 mm Hg (80.0-90.0) L 11/01/19 04:25 POC ABG HCO3 41.0 (22-26 mml/L) 11/02/19 23:02 ABG HCO3 38.2 mmol/L (20.0-26.0) H 11/01/19 04:25 POC ABG Total CO2 42 (23-27mmol/L) 11/02/19 23:02 POC ABG O2 Sat 95 11/02/19 23:02 ABG O2 Saturation 94.2 % (95.0-99.0) L 11/01/19 04:25 ABG O2 Content 13.8 (0.0-44) 11/01/19 04:25 POC ABG Base Excess 18 ((-2) - (+3)mmol/L) 11/02/19 23:02 ABG Base Excess 11.8 mmol/L (-2.0-3.0) H 11/01/19 04:25 ABG Hemoglobin 10.7 gm/dl (12.0-16.0) L 11/01/19 04:25 ABG Carboxyhemoglobin 2.3 % (0.0-5.0) 11/01/19 04:25 ABG Methemoglobin 0.5 % (0.0-1.5) 11/01/19 04:25 Oxyhemoglobin 91.6 % (95.0-99.0) L 11/01/19 04:25 FiO2 50 % 11/02/19 23:02 Sodium 141 mmol/L (137-145) 11/05/19 04:22 Potassium 4.1 mmol/L (3.6-5.0) D 11/07/19 14:29 Chloride 97.4 mmol/L (98-107) L 11/05/19 04:22 Carbon Dioxide 31 mmol/L (22-30) H 11/05/19 04:22 Anion Gap 16 mmol/L 11/05/19 04:22 BUN 11 mg/dL (7-17) 11/05/19 04:22 Creatinine 0.4 mg/dL (0.7-1.2) L 11/05/19 04:22 Estimated GFR > 60 ml/min 11/05/19 04:22 BUN/Creatinine Ratio 28 % 11/05/19 04:22 Glucose 110 mg/dL (65-100) H 11/05/19 04:22 POC Glucose 126 (70-105) H 11/02/19 22:46 Calcium 8.7 mg/dL (8.4-10.2) 11/05/19 04:22 Total Bilirubin 0.20 mg/dL (0.1-1.2) 10/17/19 20:57 AST 57 units/L (5-40) H 10/17/19 20:57 ALT 22 units/L (7-56) 10/17/19 20:57 Alkaline Phosphatase 67 units/L (35-129) 10/17/19 20:57 Total Creatine Kinase 72 units/L (30-135) 10/30/19 09:54 CK-MB (CK-2) < 1.0 ng/mL (0.0-4.0) 10/30/19 09:54 CK-MB (CK-2) Rel Index 1.3 (0-4) 10/30/19 09:54 Troponin T < 0.010 ng/mL (0.00-0.029) 10/30/19 09:54 NT-Pro-B Natriuret Pep 317.6 pg/mL (0-450) 10/17/19 20:57 Total Protein 7.1 g/dL (6.3-8.2) 10/17/19 20:57 Albumin 3.0 g/dL (3.9-5) L 10/17/19 20:57 Albumin/Globulin Ratio 0.7 % 10/17/19 20:57 Triglycerides 279 mg/dL (2-149) H 10/27/19 05:40 Procalcitonin 0.06 ng/mL (<0.15) 10/20/19 14:51 Influenza A (Rapid) Positive (Negative) A 10/17/19 Unknown Influenza B (Rapid) Negative (Negative) 10/17/19 Unknown Active Medications - Current Medications Current Medications: Generic Name Dose Route Start Last Admin Trade Name Freq PRN Reason Stop Dose Admin Acetaminophen 650 mg 10/27/19 08:38 11/02/19 08:46 Tylenol PO 650 mg Q4H PRN Administration Non Cardiac Pain or Temp>100.5 Acetaminophen/Hydrocodone Bitart 1 each 11/04/19 17:28 11/04/19 18:23 [place] 5/325 PO 1 each Q6H PRN Administration Pain, Moderate (4-6) Albuterol 2.5 mg 10/17/19 22:47 10/19/19 14:34 Proventil IH 2.5 mg Q3HRT PRN Administration Shortness Of Breath Albuterol/Ipratropium 1 ampul 10/19/19 20:00 11/08/19 08:45 Duoneb *Not For Prn Use* IH 1 ampul TIDRT EDI Administration Carvedilol 6.25 mg 11/04/19 13:00 11/07/19 22:21 Coreg PO Not Given BID EDI Heparin Sodium (Porcine) 5,000 unit 10/18/19 06:00 11/08/19 05:41 Heparin SUB-Q 5,000 unit Q8HR EDI Administration Hydrophilic Ointment 1 applic 10/23/19 17:29 10/27/19 00:29 Vaseline Lip Therapy TP 1 applic Q2HR PRN Administration Dry Lips Cefepime HCl 6 gm/ Sodium 250 mls @ 10.417 mls/hr 10/31/19 14:00 11/07/19 14: 40 Chloride IV 11/08/19 13:59 10.417 mls/hr Q24H EDI Administration Dextrose 1,000 mls @ 75 mls/hr 11/04/19 09:00 11/07/19 22:56 D5w IV 75 mls/hr DIRECT EDI Administration Labetalol HCl 10 mg 10/24/19 14:32 Labetalol IV Q4H PRN Blood Pressure Magnesium Hydroxide 30 ml 10/30/19 10:04 10/30/19 10:48 Milk Of Magnesia PO 30 ml Q4H PRN Administration INDIGESTION Multi-Ingred Cream/Lotion/Oil/Oint 1 applic 10/23/19 17:29 Artificial Tears Ophth Oint OU Q4HR PRN Dry Eye(s) Ondansetron HCl 4 mg 10/17/19 22:47 10/29/19 02:45 Zofran IV 4 mg Q8H PRN Administration Nausea And Vomiting Pantoprazole Sodium 40 mg 11/03/19 10:00 11/07/19 09:38 Protonix PO 40 mg DAILY EDI Administration Sodium Chloride 10 ml 10/18/19 10:00 11/08/19 09:31 Sodium Chloride Flush Syringe 10 Ml IV 10 ml BID EDI Administration Sodium Chloride 10 ml 10/17/19 22:47 Sodium Chloride Flush Syringe 10 Ml IV PRN PRN LINE FLUSH Tamsulosin HCl 0.4 mg 10/30/19 11:00 11/07/19 09:39 Flomax PO 0.4 mg QDAY EDI Administration Nutrition/Malnutrition Assess - Dietary Evaluation Nutrition/Malnutrition Findings: Nutrition Notes Start: 10/19/19 13:20 Freq: Status: Active Protocol: Document 11/05/19 11:10 KS (Rec: 11/05/19 11:19 KS [id number]) Co-Sign 11/05/19 11:10 LP Nutrition Notes Initial or Follow up Reassessment Current Diagnosis Hypertension,Respiratory Failure Other Pertinent Diagnosis Influlenza A pneumonia, lymphedema, pulmonary edema, SOB, DVT Current Diet Cardiac Diet Labs/Tests K 3.4 Cr 0.4 BG 110 Pertinent Medications D5w at 75mL/hr Height 5 ft 6 in Weight 233.6 kg [place] Body Weight (kg) 59.09 BMI 83.1 Subjective/Other Information Pt states appetite remains decreased. Reports eating 30- 50% of meals with no NVD. Percent of energy/protein needs met: 57%/36% Burn Absent Trauma Absent Current % PO Fair (50-74%) Minimum of two criteria No #2 Nutrition Diagnosis Inadequate oral intake Diagnosis Progress(for reassessment Continues documentation) Is patient on ventilator? No Is Patient Ambulatory and/or Out of Bed No REE-([facility]-confined to bed) 3581.100 Kcal/Kg value to use for calculation 8 Approximate Energy Requirements Using 1869 kcal/Kg Calculation Used for Recommendations Kcal/kg Additional Notes Protein needs: 117-146 g/kg/ day (0.8-1 g/kg/day AdBW 146 kg) Fluid: 1 ml/kcal Nutrition Intervention Change Diet Order: Cardiac Diet Goal #1 Meet at least 75% of energy and protein needs Anticipated Discharge Needs: Cardiac diet Follow-Up By: 11/10/19 Additional Comments Follow up for PO intakes, possible ONS
[2019-11-08] MEDS: carvediloL 6.25 MG TAB PO SCH ×2 (10:00→22:18)
--- NOTE | 2019-11-08 11:32 | XRay Report ---
CHEST 1 VIEW INDICATION / CLINICAL INFORMATION: shortness of breath. COMPARISON: 11/01/2019 FINDINGS: SUPPORT DEVICES: Endotracheal tube and NG tube have been removed. HEART / MEDIASTINUM: No significant abnormality. LUNGS / PLEURA: Diffuse bilateral interstitial lung disease remains. No large areas of alveolar conso lidation and no significant effusions. No pneumothorax. ADDITIONAL FINDINGS: No significant additional findings. IMPRESSION: 1. No significant change Signer Name: Joesph Staton MD Signed: 11/08/2019 11:28 AM Workstation Name: [id number]
[2019-11-08] MEDS: TAMSULOSIN 0.4 MG CAP PO SCH (11:45)
[2019-11-08] MEDS: PANTOPRAZOLE 40 MG TAB PO SCH (11:45)
--- NOTE | 2019-11-08 17:16 | Progress Note ---
Assessment and Plan Patient 49yo female with history of HTN recently treated for pneumonia and influenza. Patient is awake and alert. Patients ABG 11/02/2019 pH 7.52/ pCO2 50/ pO2 71/ HCO3 41/ O2 Sat 95%/ FiO2 50% Chest X-ray Reported 11/01/2019 Diffuse bilateral pulmonary opacities persist unchanged. Small bilateral pleural effusions are stable. No pneumothorax. Stable appearance of the chest radiograph. Social History: Smoking, alcohol, & drug history is not known at this time. Patient unmarried and has one daughter Patient is currently on 2 L via nasal canula with O2 saturation of 97%. BIPAP on standby in room. Patient is afebrile with no leukocytosis. Chest xray 10/1919 still reported diffuse bilateral interstitial disease. ABGs on room air tomorrow. - Patient Problems (1) Pleural effusion Current Visit: Yes Status: Acute Plan to address problem: small bilateral pleural effusions Follow with repeat chest xray (2) Acute and chronic respiratory failure with hypercapnia Current Visit: Yes Status: Acute Plan to address problem: 1. On 2 L O2 via nasal canula 2. Albuterol/Atrovent aerosol treatments q6 PRN shortness of breath. 3. Brovanna and Budesonide aerosol treatments q12 4. Continue Cefepime 5. Continue SC Heparin 6. Continue Protonix (3) Morbid obesity Current Visit: Yes Status: Acute Plan to address problem: Recommend to lose weight Recommend sleep study as outpatient Subjective Date of service: 11/08/19 Principal diagnosis: Ac. hypoxic-hypercapnic resp failure; Influenza; extreme obesity; ? DEAN Interval history: Patient 49yo female with history of HTN recently treated for pneumonia and influenza. Patient is awake and alert. Patients ABG 11/02/2019 pH 7.52/ pCO2 50/ pO2 71/ HCO3 41/ O2 Sat 95%/ FiO2 50% Chest X-ray Reported 11/01/2019 Diffuse bilateral pulmonary opacities persist unchanged. Small bilateral pleural effusions are stable. No pneumothorax. Stable appearance of the chest radiograph. Social History: Smoking, alcohol, & drug history is not known at this time. Patient unmarried and has one daughter Patient is currently on 2 L via nasal canula with O2 saturation of 97%. BIPAP on standby in room. Patient is afebrile with no leukocytosis. Chest xray 10/1919 still reported diffuse bilateral interstitial disease. ABGs on room air tomorrow. Objective Vital Signs - 12hr 11/08/19 11/08/19 11/08/19 06:29 08:00 10:00 Temperature 98.9 F Pulse Rate 89 Pulse Rate [ 95 H Anterior Bilateral Throughout] Respiratory 20 Rate Respiratory 22 Rate [Anterior Bilateral Throughout] Blood Pressure 127/54 O2 Sat by Pulse 96 94 Oximetry 11/08/19 11/08/19 11:59 14:00 Temperature 97.6 F Pulse Rate 93 H Pulse Rate [ 101 H Anterior Bilateral Throughout] Respiratory 18 Rate Respiratory 19 Rate [Anterior Bilateral Throughout] Blood Pressure 151/77 O2 Sat by Pulse 96 Oximetry Constitutional: no acute distress, alert Eyes: non-icteric ENT: oropharynx moist Neck: supple, no lymphadenopathy, no JVD, other (short neck, large circumference) Effort: mildly labored Ascultation: Bilateral: diminished breath sounds, rhonchi Percussion: Bilateral: not dull Cardiovascular: regular rate and rhythm, other (S1,S2) Gastrointestinal: normoactive bowel sounds, soft, non-tender, non-distended Integumentary: normal Extremities: no cyanosis, no edema, pink and warm, pulses normal Neurologic: normal mental status, non-focal exam (grossly), pupils equal and round, CN II-XII normal, other (weak) Psychiatric: anxious CBC and BMP: 11/01/19 05:30 11/07/19 14:29 ABG, PT/INR, D-dimer: ABG POC ABG pH 7.522 (7.35-7.45) H 11/02/19 23:02 ABG pH 7.419 pH Units (7.350-7.450) 11/01/19 04:25 POC ABG pCO2 50.0 (35-45) H 11/02/19 23:02 ABG pCO2 60.3 mm Hg 11/01/19 04:25 POC ABG pO2 71 (80-105) L 11/02/19 23:02 ABG pO2 67.0 mm Hg (80.0-90.0) L 11/01/19 04:25 POC ABG HCO3 41.0 (22-26 mml/L) 11/02/19 23:02 POC ABG Total CO2 42 (23-27mmol/L) 11/02/19 23:02 POC ABG O2 Sat 95 11/02/19 23:02 ABG O2 Saturation 94.2 % (95.0-99.0) L 11/01/19 04:25 Abnormal lab findings: Abnormal Labs 10/17/19 10/17/19 10/17/19 20:57 20:57 Unknown WBC 4.0 L RBC Hgb Hct MCV 78 L MCH 25 L RDW 24.7 H Lymph % (Auto) [place] % (Auto) Lymph # Seg Neutrophils % Seg Neuts % (Manual) 77.0 H Monocytes % (Manual) 9.0 H Lymphocytes # (Manual) 0.6 L Monocytes # (Manual) POC ABG pH ABG pH POC ABG pCO2 POC ABG pO2 ABG pO2 ABG HCO3 ABG O2 Saturation ABG Base Excess ABG Hemoglobin Oxyhemoglobin Sodium Potassium 3.5 L Chloride Carbon Dioxide BUN Creatinine 0.6 L Glucose 147 H POC Glucose Calcium 7.9 L AST 57 H Total Creatine Kinase 857 H Albumin 3.0 L Triglycerides Influenza A (Rapid) Positive A 10/18/19 10/18/19 10/18/19 05:21 05:21 09:19 WBC 3.3 L RBC Hgb Hct MCV MCH 25 L RDW 24.3 H Lymph % (Auto) 12.5 L [place] % (Auto) 7.9 H Lymph # 0.4 L Seg Neutrophils % 78.6 H Seg Neuts % (Manual) Monocytes % (Manual) Lymphocytes # (Manual) Monocytes # (Manual) POC ABG pH ABG pH POC ABG pCO2 POC ABG pO2 ABG pO2 131.3 H ABG HCO3 30.2 H ABG O2 Saturation ABG Base Excess 4.5 H ABG Hemoglobin 10.7 L Oxyhemoglobin Sodium Potassium Chloride Carbon Dioxide BUN Creatinine Glucose 167 H POC Glucose Calcium 8.3 L AST Total Creatine Kinase Albumin Triglycerides Influenza A (Rapid) 10/18/19 10/18/19 10/19/19 11:28 18:27 06:39 WBC RBC Hgb Hct MCV MCH RDW Lymph % (Auto) [place] % (Auto) Lymph # Seg Neutrophils % Seg Neuts % (Manual) Monocytes % (Manual) Lymphocytes # (Manual) Monocytes # (Manual) POC ABG pH 7.461 H 7.487 H ABG pH POC ABG pCO2 53.4 H 52.8 H 51.7 H POC ABG pO2 70 L 71 L ABG pO2 ABG HCO3 ABG O2 Saturation ABG Base Excess ABG Hemoglobin Oxyhemoglobin Sodium Potassium Chloride Carbon Dioxide BUN Creatinine Glucose POC Glucose Calcium AST Total Creatine Kinase Albumin Triglycerides Influenza A (Rapid) 10/19/19 10/20/19 10/20/19 23:25 05:31 09:08 WBC RBC Hgb Hct MCV MCH RDW Lymph % (Auto) [place] % (Auto) Lymph # Seg Neutrophils % Seg Neuts % (Manual) Monocytes % (Manual) Lymphocytes # (Manual) Monocytes # (Manual) POC ABG pH ABG pH POC ABG pCO2 POC ABG pO2 ABG pO2 ABG HCO3 ABG O2 Saturation ABG Base Excess ABG Hemoglobin Oxyhemoglobin Sodium Potassium Chloride Carbon Dioxide BUN Creatinine Glucose POC Glucose 203 H 144 H 163 H Calcium AST Total Creatine Kinase Albumin Triglycerides Influenza A (Rapid) 10/20/19 10/20/19 10/20/19 10:25 13:22 14:51 WBC RBC Hgb Hct MCV MCH RDW Lymph % (Auto) [place] % (Auto) Lymph # Seg Neutrophils % Seg Neuts % (Manual) Monocytes % (Manual) Lymphocytes # (Manual) Monocytes # (Manual) POC ABG pH 7.632 H ABG pH POC ABG pCO2 POC ABG pO2 74 L ABG pO2 ABG HCO3 ABG O2 Saturation ABG Base Excess ABG Hemoglobin Oxyhemoglobin Sodium 147 H Potassium Chloride Carbon Dioxide 31 H BUN Creatinine 0.5 L Glucose 154 H POC Glucose 178 H Calcium 8.2 L AST Total Creatine Kinase Albumin Triglycerides Influenza A (Rapid) 10/20/19 10/20/19 10/20/19 14:51 17:16 21:30 WBC 11.2 H RBC Hgb Hct MCV 78 L MCH 25 L RDW 23.9 H Lymph % (Auto) [place] % (Auto) Lymph # Seg Neutrophils % Seg Neuts % (Manual) Monocytes % (Manual) Lymphocytes # (Manual) Monocytes # (Manual) POC ABG pH ABG pH POC ABG pCO2 POC ABG pO2 ABG pO2 ABG HCO3 ABG O2 Saturation ABG Base Excess ABG Hemoglobin Oxyhemoglobin Sodium Potassium Chloride Carbon Dioxide BUN Creatinine Glucose POC Glucose 143 H 152 H Calcium AST Total Creatine Kinase Albumin Triglycerides Influenza A (Rapid) 10/20/19 10/21/19 10/21/19 22:52 05:55 08:27 WBC RBC Hgb Hct MCV MCH RDW Lymph % (Auto) [place] % (Auto) Lymph # Seg Neutrophils % Seg Neuts % (Manual) Monocytes % (Manual) Lymphocytes # (Manual) Monocytes # (Manual) POC ABG pH ABG pH POC ABG pCO2 POC ABG pO2 ABG pO2 ABG HCO3 ABG O2 Saturation ABG Base Excess ABG Hemoglobin Oxyhemoglobin Sodium Potassium Chloride Carbon Dioxide BUN Creatinine Glucose POC Glucose 179 H 115 H 131 H Calcium AST Total Creatine Kinase Albumin Triglycerides Influenza A (Rapid) 10/21/19 10/21/19 10/21/19 11:52 16:23 23:38 WBC RBC Hgb Hct MCV MCH RDW Lymph % (Auto) [place] % (Auto) Lymph # Seg Neutrophils % Seg Neuts % (Manual) Monocytes % (Manual) Lymphocytes # (Manual) Monocytes # (Manual) POC ABG pH ABG pH POC ABG pCO2 POC ABG pO2 ABG pO2 ABG HCO3 ABG O2 Saturation ABG Base Excess ABG Hemoglobin Oxyhemoglobin Sodium Potassium Chloride Carbon Dioxide BUN Creatinine Glucose POC Glucose 122 H 120 H 115 H Calcium AST Total Creatine Kinase Albumin Triglycerides Influenza A (Rapid) 10/22/19 10/22/19 10/22/19 00:35 05:19 06:10 WBC RBC Hgb Hct MCV MCH 25 L RDW 22.8 H Lymph % (Auto) [place] % (Auto) Lymph # Seg Neutrophils % Seg Neuts % (Manual) Monocytes % (Manual) Lymphocytes # (Manual) Monocytes # (Manual) POC ABG pH ABG pH 7.520 H POC ABG pCO2 POC ABG pO2 ABG pO2 64.4 L ABG HCO3 36.8 H ABG O2 Saturation ABG Base Excess 12.6 H ABG Hemoglobin 10.4 L Oxyhemoglobin Sodium Potassium Chloride Carbon Dioxide BUN Creatinine Glucose POC Glucose 108 H Calcium AST Total Creatine Kinase Albumin Triglycerides Influenza A (Rapid) 10/22/19 10/24/19 10/25/19 15:40 05:49 04:20 WBC RBC Hgb Hct MCV MCH RDW Lymph % (Auto) [place] % (Auto) Lymph # Seg Neutrophils % Seg Neuts % (Manual) Monocytes % (Manual) Lymphocytes # (Manual) Monocytes # (Manual) POC ABG pH 7.454 H ABG pH POC ABG pCO2 64.1 H 63.5 H POC ABG pO2 73 L ABG pO2 ABG HCO3 ABG O2 Saturation ABG Base Excess ABG Hemoglobin Oxyhemoglobin Sodium 136 L D Potassium Chloride 97.6 L Carbon Dioxide BUN 19 H Creatinine Glucose 125 H POC Glucose Calcium AST Total Creatine Kinase Albumin Triglycerides Influenza A (Rapid) 10/25/19 10/25/19 10/26/19 05:35 05:35 04:19 WBC RBC Hgb 10.0 L Hct MCV MCH 25 L RDW 22.0 H Lymph % (Auto) [place] % (Auto) Lymph # Seg Neutrophils % Seg Neuts % (Manual) Monocytes % (Manual) Lymphocytes # (Manual) Monocytes # (Manual) POC ABG pH ABG pH POC ABG pCO2 66.1 H POC ABG pO2 75 L ABG pO2 ABG HCO3 ABG O2 Saturation ABG Base Excess ABG Hemoglobin Oxyhemoglobin Sodium 147 H D Potassium Chloride Carbon Dioxide 34 H D BUN 23 H Creatinine 0.5 L Glucose 184 H POC Glucose Calcium AST Total Creatine Kinase Albumin Triglycerides Influenza A (Rapid) 10/26/19 10/26/19 10/26/19 05:20 05:20 12:44 WBC RBC Hgb 9.5 L Hct MCV MCH 25 L RDW 22.3 H Lymph % (Auto) [place] % (Auto) Lymph # Seg Neutrophils % Seg Neuts % (Manual) Monocytes % (Manual) Lymphocytes # (Manual) Monocytes # (Manual) POC ABG pH 7.501 H ABG pH POC ABG pCO2 54.7 H POC ABG pO2 69 L ABG pO2 ABG HCO3 ABG O2 Saturation ABG Base Excess ABG Hemoglobin Oxyhemoglobin Sodium 152 H Potassium Chloride Carbon Dioxide 33 H BUN 27 H Creatinine 0.6 L Glucose 135 H POC Glucose Calcium AST Total Creatine Kinase Albumin Triglycerides Influenza A (Rapid) 10/27/19 10/27/19 10/27/19 03:30 05:40 05:40 WBC RBC 3.62 L Hgb 9.4 L Hct 29.1 L MCV MCH 26 L RDW 21.7 H Lymph % (Auto) [place] % (Auto) Lymph # Seg Neutrophils % Seg Neuts % (Manual) Monocytes % (Manual) Lymphocytes # (Manual) Monocytes # (Manual) POC ABG pH ABG pH 7.472 H POC ABG pCO2 POC ABG pO2 ABG pO2 ABG HCO3 38.2 H ABG O2 Saturation ABG Base Excess 13.3 H ABG Hemoglobin 6.5 L Oxyhemoglobin Sodium 149 H Potassium 3.3 L Chloride Carbon Dioxide 31 H BUN 25 H Creatinine 0.5 L Glucose 142 H POC Glucose Calcium 8.2 L AST Total Creatine Kinase Albumin Triglycerides Influenza A (Rapid) 10/27/19 10/28/19 10/28/19 05:40 05:19 05:56 WBC RBC Hgb Hct MCV MCH RDW Lymph % (Auto) [place] % (Auto) Lymph # Seg Neutrophils % Seg Neuts % (Manual) Monocytes % (Manual) Lymphocytes # (Manual) Monocytes # (Manual) POC ABG pH 7.489 H ABG pH POC ABG pCO2 51.0 H POC ABG pO2 71 L ABG pO2 ABG HCO3 ABG O2 Saturation ABG Base Excess ABG Hemoglobin Oxyhemoglobin Sodium 153 H Potassium Chloride Carbon Dioxide 31 H BUN Creatinine 0.4 L Glucose 111 H POC Glucose Calcium 8.1 L AST Total Creatine Kinase Albumin Triglycerides 279 H Influenza A (Rapid) 10/29/19 10/29/19 10/30/19 03:54 04:21 04:48 WBC RBC Hgb Hct MCV MCH RDW Lymph % (Auto) [place] % (Auto) Lymph # Seg Neutrophils % Seg Neuts % (Manual) Monocytes % (Manual) Lymphocytes # (Manual) Monocytes # (Manual) POC ABG pH 7.506 H 7.508 H ABG pH POC ABG pCO2 53.6 H 49.6 H POC ABG pO2 ABG pO2 ABG HCO3 ABG O2 Saturation ABG Base Excess ABG Hemoglobin Oxyhemoglobin Sodium 150 H Potassium Chloride Carbon Dioxide BUN Creatinine 0.4 L Glucose 137 H POC Glucose Calcium AST Total Creatine Kinase Albumin Triglycerides Influenza A (Rapid) 10/30/19 10/30/19 10/31/19 09:54 21:08 00:17 WBC RBC Hgb Hct MCV MCH RDW Lymph % (Auto) [place] % (Auto) Lymph # Seg Neutrophils % Seg Neuts % (Manual) Monocytes % (Manual) Lymphocytes # (Manual) Monocytes # (Manual) POC ABG pH 7.455 H ABG pH POC ABG pCO2 58.6 H POC ABG pO2 74 L ABG pO2 ABG HCO3 ABG O2 Saturation ABG Base Excess ABG Hemoglobin Oxyhemoglobin Sodium 148 H Potassium Chloride Carbon Dioxide BUN Creatinine 0.4 L Glucose 156 H POC Glucose 160 H Calcium AST Total Creatine Kinase Albumin Triglycerides Influenza A (Rapid) 10/31/19 10/31/19 10/31/19 04:42 08:02 16:24 WBC RBC Hgb Hct MCV MCH RDW Lymph % (Auto) [place] % (Auto) Lymph # Seg Neutrophils % Seg Neuts % (Manual) Monocytes % (Manual) Lymphocytes # (Manual) Monocytes # (Manual) POC ABG pH ABG pH POC ABG pCO2 62.2 H POC ABG pO2 76 L ABG pO2 ABG HCO3 ABG O2 Saturation ABG Base Excess ABG Hemoglobin Oxyhemoglobin Sodium 149 H Potassium Chloride Carbon Dioxide BUN Creatinine 0.4 L Glucose 146 H POC Glucose 143 H Calcium AST Total Creatine Kinase Albumin Triglycerides Influenza A (Rapid) 11/01/19 11/01/19 11/01/19 04:25 05:30 05:30 WBC RBC Hgb 9.7 L Hct 30.1 L MCV MCH 26 L RDW 21.6 H Lymph % (Auto) [place] % (Auto) Lymph # Seg Neutrophils % Seg Neuts % (Manual) Monocytes % (Manual) 10.0 H Lymphocytes # (Manual) Monocytes # (Manual) 0.9 H POC ABG pH ABG pH POC ABG pCO2 POC ABG pO2 ABG pO2 67.0 L ABG HCO3 38.2 H ABG O2 Saturation 94.2 L ABG Base Excess 11.8 H ABG Hemoglobin 10.7 L Oxyhemoglobin 91.6 L Sodium 147 H Potassium Chloride Carbon Dioxide 31 H BUN Creatinine 0.4 L Glucose 136 H POC Glucose Calcium AST Total Creatine Kinase Albumin Triglycerides Influenza A (Rapid) 11/01/19 11/02/19 11/02/19 10:32 22:46 23:02 WBC RBC Hgb Hct MCV MCH RDW Lymph % (Auto) [place] % (Auto) Lymph # Seg Neutrophils % Seg Neuts % (Manual) Monocytes % (Manual) Lymphocytes # (Manual) Monocytes # (Manual) POC ABG pH 7.465 H 7.522 H ABG pH POC ABG pCO2 56.8 H 50.0 H POC ABG pO2 71 L ABG pO2 ABG HCO3 ABG O2 Saturation ABG Base Excess ABG Hemoglobin Oxyhemoglobin Sodium Potassium Chloride Carbon Dioxide BUN Creatinine Glucose POC Glucose 126 H Calcium AST Total Creatine Kinase Albumin Triglycerides Influenza A (Rapid) 11/04/19 11/05/19 11/08/19 05:57 04:22 11:47 WBC RBC Hgb Hct MCV MCH RDW Lymph % (Auto) [place] % (Auto) Lymph # Seg Neutrophils % Seg Neuts % (Manual) Monocytes % (Manual) Lymphocytes # (Manual) Monocytes # (Manual) POC ABG pH ABG pH POC ABG pCO2 POC ABG pO2 ABG pO2 ABG HCO3 ABG O2 Saturation ABG Base Excess ABG Hemoglobin Oxyhemoglobin Sodium 148 H Potassium 3.1 L 3.4 L Chloride 97.4 L Carbon Dioxide 34 H 31 H BUN Creatinine 0.5 L 0.4 L Glucose 128 H 110 H POC Glucose 147 H Calcium AST Total Creatine Kinase Albumin Triglycerides Influenza A (Rapid) Chest x-ray: report reviewed (DIFFUSE BILATERAL INTERSTITIAL LUNG DISEASE.), image reviewed Allied health notes reviewed: RT
[2019-11-08] MEDS: DEXTROSE 5% IN WATER 1,000 ML IV SCH (23:46)
[2019-11-09] MEDS: HEPARIN 5,000 UNIT/1 ML VIAL SUB-Q SCH ×3 (05:56→22:01)
[2019-11-09] MEDS: IPRATROPIUM/ALBUTEROL SULFATE 3 ML AMPUL.NEB IH SCH ×3 (09:20→20:39)
--- NOTE | 2019-11-09 10:41 | Progress Note ---
Assessment and Plan Assessment and plan: Acute hypoxemic respiratory failure. Respiratory/tracheal aspirate reveals Enterobacter. The patient failed BiPAP and required intubation on 10/23/2019. Patient now extubated. On Oxygen by NC 2l/min. Pulmonary following. Sepsis. Etiology secondary to pneumonia/influenza A. Continue antibiotics per ID. Influenza A. Completed high dose prolonged Tamiflu course. Bilateral pneumonia. resp culture with GNR, patient on Cefepime. Acute on chronic diastolic heart failure. Echocardiogram revealed The left ventricular size is mildly dilated, mild to moderate concentric LVH, est EF 40- 45%, left atrium is mildly dilated, trace MR, mild TR, mild to moderate Pulmonary hypertension, RVSP is calculated at 42 mmHg. Obesity hypoventilation syndrome/DEAN. Outpatient evaluation for sleep apnea Morbid obesity. BMI is 83. Weight loss and life style modifications on discharge. Agitation on and off, now resolved. calm today CT head could not be done because of body habitus. Debility PT eval ongoing Hopefully dc soon. Awaiting PT recommendation: home with HH versus facility. History Interval history: Dizziness on sitting up Generalized weakness less Shortness of breath Hospitalist Physical - Physical exam Narrative exam: GEN: Not in acute distress, lying in bed, morbidly obese HEENT: Normocephalic, atraumatic, Neck: supple, No JVD Lungs: Clear to auscultation bilaterally, no wheeze, heart;S1 and S2 reg, no murmurs Abd:soft, non tender, non distended, normal bowel sounds Ext: No edema, no clubbing, no cyanosis Neuro: AAO X 3, no focal neurological signs, moves all ext - Constitutional Vitals: Temp Pulse Resp BP Pulse Ox 98.3 F 99 H 16 145/83 99 11/09/19 05:30 11/09/19 09:20 11/09/19 09:20 11/09/19 05:30 11/09/19 05:30 General appearance: Present: obese Results - Labs CBC & Chem 7: 11/01/19 05:30 11/07/19 14:29 Labs: Laboratory Last Values WBC 8.5 K/mm3 (4.5-11.0) 11/01/19 05:30 RBC 3.67 M/mm3 (3.65-5.03) 11/01/19 05:30 Hgb 9.7 gm/dl (10.1-14.3) L 11/01/19 05:30 Hct 30.1 % (30.3-42.9) L 11/01/19 05:30 MCV 82 fl (79-97) 11/01/19 05:30 MCH 26 pg (28-32) L 11/01/19 05:30 MCHC 32 % (30-34) 11/01/19 05:30 RDW 21.6 % (13.2-15.2) H 11/01/19 05:30 Plt Count 356 K/mm3 (140-440) 11/01/19 05:30 Lymph % (Auto) 12.5 % (13.4-35.0) L 10/18/19 05:21 Starke % (Auto) 7.9 % (0.0-7.3) H 10/18/19 05:21 Eos % (Auto) 0.0 % (0.0-4.3) 10/18/19 05:21 Baso % (Auto) 1.0 % (0.0-1.8) 10/18/19 05:21 Lymph # 0.4 K/mm3 (1.2-5.4) L 10/18/19 05:21 Starke # 0.3 K/mm3 (0.0-0.8) 10/18/19 05:21 Eos # 0.0 K/mm3 (0.0-0.4) 10/18/19 05:21 Baso # 0.0 K/mm3 (0.0-0.1) 10/18/19 05:21 Add Manual Diff Complete 11/01/19 05:30 Total Counted 100 11/01/19 05:30 Seg Neutrophils % 78.6 % (40.0-70.0) H 10/18/19 05:21 Seg Neuts % (Manual) 70.0 % (40.0-70.0) 11/01/19 05:30 Band Neutrophils % 1.0 % 11/01/19 05:30 Lymphocytes % (Manual) 17.0 % (13.4-35.0) 11/01/19 05:30 Reactive Lymphs % (Man) 0 % 11/01/19 05:30 Monocytes % (Manual) 10.0 % (0.0-7.3) H 11/01/19 05:30 Eosinophils % (Manual) 1.0 % (0.0-4.3) 11/01/19 05:30 Basophils % (Manual) 0 % (0.0-1.8) 11/01/19 05:30 Metamyelocytes % 1.0 % 11/01/19 05:30 Myelocytes % 0 % 11/01/19 05:30 Promyelocytes % 0 % 11/01/19 05:30 Blast Cells % 0 % 11/01/19 05:30 Nucleated RBC % Not Reportable 11/01/19 05:30 Seg Neutrophils # 2.6 K/mm3 (1.8-7.7) 10/18/19 05:21 Seg Neutrophils # Man 6.0 K/mm3 (1.8-7.7) 11/01/19 05:30 Band Neutrophils # 0.1 K/mm3 11/01/19 05:30 Lymphocytes # (Manual) 1.4 K/mm3 (1.2-5.4) 11/01/19 05:30 Abs React Lymphs (Man) 0.0 K/mm3 11/01/19 05:30 Monocytes # (Manual) 0.9 K/mm3 (0.0-0.8) H 11/01/19 05:30 Eosinophils # (Manual) 0.1 K/mm3 (0.0-0.4) 11/01/19 05:30 Basophils # (Manual) 0.0 K/mm3 (0.0-0.1) 11/01/19 05:30 Metamyelocytes # 0.1 K/mm3 11/01/19 05:30 Myelocytes # 0.0 K/mm3 11/01/19 05:30 Promyelocytes # 0.0 K/mm3 11/01/19 05:30 Blast Cells # 0.0 K/mm3 11/01/19 05:30 WBC Morphology Not Reportable 11/01/19 05:30 Hypersegmented Neuts Not Reportable 11/01/19 05:30 Hyposegmented Neuts Not Reportable 11/01/19 05:30 Hypogranular Neuts Not Reportable 11/01/19 05:30 Smudge Cells Not Reportable 11/01/19 05:30 Toxic Granulation Not Reportable 11/01/19 05:30 Toxic Vacuolation Not Reportable 11/01/19 05:30 Dohle Bodies Not Reportable 11/01/19 05:30 Pelger-Huet Anomaly Not Reportable 11/01/19 05:30 Krista Rods Not Reportable 11/01/19 05:30 Platelet Estimate Consistent w auto 11/01/19 05:30 Clumped Platelets Not Reportable 11/01/19 05:30 Plt Clumps, EDTA Not Reportable 11/01/19 05:30 Large Platelets Not Reportable 11/01/19 05:30 Giant Platelets Not Reportable 11/01/19 05:30 Platelet Satelliting Not Reportable 11/01/19 05:30 Plt Morphology Comment Not Reportable 11/01/19 05:30 RBC Morphology Not Reportable 11/01/19 05:30 Dimorphic RBCs Not Reportable 11/01/19 05:30 Polychromasia Rare 11/01/19 05:30 Hypochromasia Not Reportable 11/01/19 05:30 Poikilocytosis Not Reportable 11/01/19 05:30 Anisocytosis 1+ 11/01/19 05:30 Microcytosis Not Reportable 11/01/19 05:30 Macrocytosis Not Reportable 11/01/19 05:30 Spherocytes Not Reportable 11/01/19 05:30 Pappenheimer Bodies Not Reportable 11/01/19 05:30 Sickle Cells Not Reportable 11/01/19 05:30 Target Cells Not Reportable 11/01/19 05:30 Tear Drop Cells Not Reportable 11/01/19 05:30 Ovalocytes Not Reportable 11/01/19 05:30 Stomatocytes 2+ 11/01/19 05:30 Helmet Cells Not Reportable 11/01/19 05:30 Gallagher-Braggs Bodies Not Reportable 11/01/19 05:30 [place] Rings Not Reportable 11/01/19 05:30 James Cells Not Reportable 11/01/19 05:30 Bite Cells Not Reportable 11/01/19 05:30 Crenated Cell Not Reportable 11/01/19 05:30 Elliptocytes Not Reportable 11/01/19 05:30 Acanthocytes (Spur) Not Reportable 11/01/19 05:30 Rouleaux Not Reportable 11/01/19 05:30 Hemoglobin C Crystals Not Reportable 11/01/19 05:30 Schistocytes Not Reportable 11/01/19 05:30 Malaria parasites Not Reportable 11/01/19 05:30 Alejandro Bodies Not Reportable 11/01/19 05:30 Hem Pathologist Commnt No 11/01/19 05:30 POC ABG pH 7.522 (7.35-7.45) H 11/02/19 23:02 ABG pH 7.419 pH Units (7.350-7.450) 11/01/19 04:25 POC ABG pCO2 50.0 (35-45) H 11/02/19 23:02 ABG pCO2 60.3 mm Hg 11/01/19 04:25 POC ABG pO2 71 (80-105) L 11/02/19 23:02 ABG pO2 67.0 mm Hg (80.0-90.0) L 11/01/19 04:25 POC ABG HCO3 41.0 (22-26 mml/L) 11/02/19 23:02 ABG HCO3 38.2 mmol/L (20.0-26.0) H 11/01/19 04:25 POC ABG Total CO2 42 (23-27mmol/L) 11/02/19 23:02 POC ABG O2 Sat 95 11/02/19 23:02 ABG O2 Saturation 94.2 % (95.0-99.0) L 11/01/19 04:25 ABG O2 Content 13.8 (0.0-44) 11/01/19 04:25 POC ABG Base Excess 18 ((-2) - (+3)mmol/L) 11/02/19 23:02 ABG Base Excess 11.8 mmol/L (-2.0-3.0) H 11/01/19 04:25 ABG Hemoglobin 10.7 gm/dl (12.0-16.0) L 11/01/19 04:25 ABG Carboxyhemoglobin 2.3 % (0.0-5.0) 11/01/19 04:25 ABG Methemoglobin 0.5 % (0.0-1.5) 11/01/19 04:25 Oxyhemoglobin 91.6 % (95.0-99.0) L 11/01/19 04:25 FiO2 50 % 11/02/19 23:02 Sodium 141 mmol/L (137-145) 11/05/19 04:22 Potassium 4.1 mmol/L (3.6-5.0) D 11/07/19 14:29 Chloride 97.4 mmol/L (98-107) L 11/05/19 04:22 Carbon Dioxide 31 mmol/L (22-30) H 11/05/19 04:22 Anion Gap 16 mmol/L 11/05/19 04:22 BUN 11 mg/dL (7-17) 11/05/19 04:22 Creatinine 0.4 mg/dL (0.7-1.2) L 11/05/19 04:22 Estimated GFR > 60 ml/min 11/05/19 04:22 BUN/Creatinine Ratio 28 % 11/05/19 04:22 Glucose 110 mg/dL (65-100) H 11/05/19 04:22 POC Glucose 147 (70-105) H 11/08/19 11:47 Calcium 8.7 mg/dL (8.4-10.2) 11/05/19 04:22 Total Bilirubin 0.20 mg/dL (0.1-1.2) 10/17/19 20:57 AST 57 units/L (5-40) H 10/17/19 20:57 ALT 22 units/L (7-56) 10/17/19 20:57 Alkaline Phosphatase 67 units/L (35-129) 10/17/19 20:57 Total Creatine Kinase 72 units/L (30-135) 10/30/19 09:54 CK-MB (CK-2) < 1.0 ng/mL (0.0-4.0) 10/30/19 09:54 CK-MB (CK-2) Rel Index 1.3 (0-4) 10/30/19 09:54 Troponin T < 0.010 ng/mL (0.00-0.029) 10/30/19 09:54 NT-Pro-B Natriuret Pep 317.6 pg/mL (0-450) 10/17/19 20:57 Total Protein 7.1 g/dL (6.3-8.2) 10/17/19 20:57 Albumin 3.0 g/dL (3.9-5) L 10/17/19 20:57 Albumin/Globulin Ratio 0.7 % 10/17/19 20:57 Triglycerides 279 mg/dL (2-149) H 10/27/19 05:40 Procalcitonin 0.06 ng/mL (<0.15) 10/20/19 14:51 Rheumatoid Factor < 10 IU/ml (0-13) 11/08/19 23:23 Influenza A (Rapid) Positive (Negative) A 10/17/19 Unknown Influenza B (Rapid) Negative (Negative) 10/17/19 Unknown Active Medications - Current Medications Current Medications: Generic Name Dose Route Start Last Admin Trade Name Freq PRN Reason Stop Dose Admin Acetaminophen 650 mg 10/27/19 08:38 11/02/19 08:46 Tylenol PO 650 mg Q4H PRN Administration Non Cardiac Pain or Temp>100.5 Acetaminophen/Hydrocodone Bitart 1 each 11/04/19 17:28 11/04/19 18:23 [place] 5/325 PO 1 each Q6H PRN Administration Pain, Moderate (4-6) Albuterol 2.5 mg 10/17/19 22:47 10/19/19 14:34 Proventil IH 2.5 mg Q3HRT PRN Administration Shortness Of Breath Albuterol/Ipratropium 1 ampul 10/19/19 20:00 11/09/19 09:20 Duoneb *Not For Prn Use* IH 1 ampul TIDRT EDI Administration Carvedilol 6.25 mg 11/04/19 13:00 11/08/19 22:18 Coreg PO Not Given BID EDI Heparin Sodium (Porcine) 5,000 unit 10/18/19 06:00 11/09/19 05:56 Heparin SUB-Q 5,000 unit Q8HR EDI Administration Hydrophilic Ointment 1 applic 10/23/19 17:29 10/27/19 00:29 Vaseline Lip Therapy TP 1 applic Q2HR PRN Administration Dry Lips Labetalol HCl 10 mg 10/24/19 14:32 Labetalol IV Q4H PRN Blood Pressure Magnesium Hydroxide 30 ml 10/30/19 10:04 10/30/19 10:48 Milk Of Magnesia PO 30 ml Q4H PRN Administration INDIGESTION Multi-Ingred Cream/Lotion/Oil/Oint 1 applic 10/23/19 17:29 Artificial Tears Ophth Oint OU Q4HR PRN Dry Eye(s) Ondansetron HCl 4 mg 10/17/19 22:47 10/29/19 02:45 Zofran IV 4 mg Q8H PRN Administration Nausea And Vomiting Pantoprazole Sodium 40 mg 11/03/19 10:00 11/08/19 11:45 Protonix PO 40 mg DAILY EDI Administration Sodium Chloride 10 ml 10/18/19 10:00 11/08/19 22:17 Sodium Chloride Flush Syringe 10 Ml IV 10 ml BID EDI Administration Sodium Chloride 10 ml 10/17/19 22:47 Sodium Chloride Flush Syringe 10 Ml IV PRN PRN LINE FLUSH Tamsulosin HCl 0.4 mg 10/30/19 11:00 11/08/19 11:45 Flomax PO 0.4 mg QDAY EDI Administration Nutrition/Malnutrition Assess - Dietary Evaluation Nutrition/Malnutrition Findings: Nutrition Notes Start: 10/19/19 13:20 Freq: Status: Active Protocol: Document 11/05/19 11:10 KS (Rec: 11/05/19 11:19 KS [id number]) Co-Sign 11/05/19 11:10 LP Nutrition Notes Initial or Follow up Reassessment Current Diagnosis Hypertension,Respiratory Failure Other Pertinent Diagnosis Influlenza A pneumonia, lymphedema, pulmonary edema, SOB, DVT Current Diet Cardiac Diet Labs/Tests K 3.4 Cr 0.4 BG 110 Pertinent Medications D5w at 75mL/hr Height 5 ft 6 in Weight 233.6 kg [place] Body Weight (kg) 59.09 BMI 83.1 Subjective/Other Information Pt states appetite remains decreased. Reports eating 30- 50% of meals with no NVD. Percent of energy/protein needs met: 57%/36% Burn Absent Trauma Absent Current % PO Fair (50-74%) Minimum of two criteria No #2 Nutrition Diagnosis Inadequate oral intake Diagnosis Progress(for reassessment Continues documentation) Is patient on ventilator? No Is Patient Ambulatory and/or Out of Bed No REE-([facility]-confined to bed) 3581.100 Kcal/Kg value to use for calculation 8 Approximate Energy Requirements Using 1869 kcal/Kg Calculation Used for Recommendations Kcal/kg Additional Notes Protein needs: 117-146 g/kg/ day (0.8-1 g/kg/day AdBW 146 kg) Fluid: 1 ml/kcal Nutrition Intervention Change Diet Order: Cardiac Diet Goal #1 Meet at least 75% of energy and protein needs Anticipated Discharge Needs: Cardiac diet Follow-Up By: 11/10/19 Additional Comments Follow up for PO intakes, possible ONS
--- NOTE | 2019-11-09 14:44 | Progress Note ---
Assessment and Plan Patient 49yo female with history of HTN recently treated for pneumonia and influenza. Patient is awake and alert. Patients ABG 11/02/2019 pH 7.52/ pCO2 50/ pO2 71/ HCO3 41/ O2 Sat 95%/ FiO2 50% Social History: Smoking, alcohol, & drug history is not known at this time. Patient unmarried and has one daughter Patient is currently on 2.5 L O2 via nasal canula with O2 saturation of 96%. BIPAP on standby in room. Patient is afebrile with no leukocytosis. Chest xray 11/08/19 still reported diffuse bilateral interstitial disease. Obtaining ZBIGNIEW,RF, MAYO level ,CANCA. ABGs on room air tomorrow. - Patient Problems (1) Pleural effusion Current Visit: Yes Status: Acute Plan to address problem: small bilateral pleural effusions Follow with repeat chest xray (2) Acute and chronic respiratory failure with hypercapnia Current Visit: Yes Status: Acute Plan to address problem: 1. On 2.5 L O2 via nasal canula 2. Albuterol/Atrovent aerosol treatments q6 PRN shortness of breath. 3. Brovanna and Budesonide aerosol treatments q12 4. Continue Cefepime 5. Continue SC Heparin 6. Continue Protonix 7. ABGs on room air tomorrow. (3) Morbid obesity Current Visit: Yes Status: Acute Plan to address problem: Recommend to lose weight Recommend sleep study as outpatient Subjective Date of service: 11/09/19 Principal diagnosis: acute respiratory distress Interval history: Patient 49yo female with history of HTN recently treated for pneumonia and i nfluenza. Patient is awake and alert. Patients ABG 11/02/2019 pH 7.52/ pCO2 50/ pO2 71/ HCO3 41/ O2 Sat 95%/ FiO2 50% Social History: Smoking, alcohol, & drug history is not known at this time. Shaunna ent unmarried and has one daughter Patient is currently on 2.5 L O2 via nasal canula with O2 saturation of 96%. BIPAP on standby in room. Patient is afebrile with no leukocytosis. Chest xray 11/08/19 still reported diffuse bilateral interstitial disease. Obtaining ZBIGNIEW,RF, MAYO level ,CANCA. ABGs on room air tomorrow. Objective Vital Signs - 12hr 11/09/19 11/09/19 05:30 09:20 Temperature 98.3 F Pulse Rate 94 H Pulse Rate [ 99 H Anterior Bilateral Throughout] Respiratory 20 Rate Respiratory 16 Rate [Anterior Bilateral Throughout] Blood Pressure 145/83 O2 Sat by Pulse 99 Oximetry Constitutional: no acute distress, alert Eyes: non-icteric ENT: oropharynx moist, other (small bowel feeding tube in nares) Neck: supple, no lymphadenopathy, no JVD, other (short neck, large circunference) Effort: normal Ascultation: Bilateral: diminished breath sounds, rhonchi Percussion: Bilateral: not dull Cardiovascular: regular rate and rhythm, other (S1,S2) Gastrointestinal: normoactive bowel sounds, soft, non-tender, non-distended Integumentary: normal Extremities: no cyanosis, no edema, pink and warm, pulses normal Neurologic: non-focal exam, pupils equal and round Psychiatric: mood appropriate, affect normal CBC and BMP: 11/01/19 05:30 11/07/19 14:29 ABG, PT/INR, D-dimer: ABG POC ABG pH 7.522 (7.35-7.45) H 11/02/19 23:02 ABG pH 7.419 pH Units (7.350-7.450) 11/01/19 04:25 POC ABG pCO2 50.0 (35-45) H 11/02/19 23:02 ABG pCO2 60.3 mm Hg 11/01/19 04:25 POC ABG pO2 71 (80-105) L 11/02/19 23:02 ABG pO2 67.0 mm Hg (80.0-90.0) L 11/01/19 04:25 POC ABG HCO3 41.0 (22-26 mml/L) 11/02/19 23:02 POC ABG Total CO2 42 (23-27mmol/L) 11/02/19 23:02 POC ABG O2 Sat 95 11/02/19 23:02 ABG O2 Saturation 94.2 % (95.0-99.0) L 11/01/19 04:25 Abnormal lab findings: Abnormal Labs 10/17/19 10/17/19 10/17/19 20:57 20:57 Unknown WBC 4.0 L RBC Hgb Hct MCV 78 L MCH 25 L RDW 24.7 H Lymph % (Auto) [place] % (Auto) Lymph # Seg Neutrophils % Seg Neuts % (Manual) 77.0 H Monocytes % (Manual) 9.0 H Lymphocytes # (Manual) 0.6 L Monocytes # (Manual) POC ABG pH ABG pH POC ABG pCO2 POC ABG pO2 ABG pO2 ABG HCO3 ABG O2 Saturation ABG Base Excess ABG Hemoglobin Oxyhemoglobin Sodium Potassium 3.5 L Chloride Carbon Dioxide BUN Creatinine 0.6 L Glucose 147 H POC Glucose Calcium 7.9 L AST 57 H Total Creatine Kinase 857 H Albumin 3.0 L Triglycerides Influenza A (Rapid) Positive A 10/18/19 10/18/19 10/18/19 05:21 05:21 09:19 WBC 3.3 L RBC Hgb Hct MCV MCH 25 L RDW 24.3 H Lymph % (Auto) 12.5 L [place] % (Auto) 7.9 H Lymph # 0.4 L Seg Neutrophils % 78.6 H Seg Neuts % (Manual) Monocytes % (Manual) Lymphocytes # (Manual) Monocytes # (Manual) POC ABG pH ABG pH POC ABG pCO2 POC ABG pO2 ABG pO2 131.3 H ABG HCO3 30.2 H ABG O2 Saturation ABG Base Excess 4.5 H ABG Hemoglobin 10.7 L Oxyhemoglobin Sodium Potassium Chloride Carbon Dioxide BUN Creatinine Glucose 167 H POC Glucose Calcium 8.3 L AST Total Creatine Kinase Albumin Triglycerides Influenza A (Rapid) 10/18/19 10/18/19 10/19/19 11:28 18:27 06:39 WBC RBC Hgb Hct MCV MCH RDW Lymph % (Auto) [place] % (Auto) Lymph # Seg Neutrophils % Seg Neuts % (Manual) Monocytes % (Manual) Lymphocytes # (Manual) Monocytes # (Manual) POC ABG pH 7.461 H 7.487 H ABG pH POC ABG pCO2 53.4 H 52.8 H 51.7 H POC ABG pO2 70 L 71 L ABG pO2 ABG HCO3 ABG O2 Saturation ABG Base Excess ABG Hemoglobin Oxyhemoglobin Sodium Potassium Chloride Carbon Dioxide BUN Creatinine Glucose POC Glucose Calcium AST Total Creatine Kinase Albumin Triglycerides Influenza A (Rapid) 10/19/19 10/20/19 10/20/19 23:25 05:31 09:08 WBC RBC Hgb Hct MCV MCH RDW Lymph % (Auto) [place] % (Auto) Lymph # Seg Neutrophils % Seg Neuts % (Manual) Monocytes % (Manual) Lymphocytes # (Manual) Monocytes # (Manual) POC ABG pH ABG pH POC ABG pCO2 POC ABG pO2 ABG pO2 ABG HCO3 ABG O2 Saturation ABG Base Excess ABG Hemoglobin Oxyhemoglobin Sodium Potassium Chloride Carbon Dioxide BUN Creatinine Glucose POC Glucose 203 H 144 H 163 H Calcium AST Total Creatine Kinase Albumin Triglycerides Influenza A (Rapid) 10/20/19 10/20/19 10/20/19 10:25 13:22 14:51 WBC RBC Hgb Hct MCV MCH RDW Lymph % (Auto) [place] % (Auto) Lymph # Seg Neutrophils % Seg Neuts % (Manual) Monocytes % (Manual) Lymphocytes # (Manual) Monocytes # (Manual) POC ABG pH 7.632 H ABG pH POC ABG pCO2 POC ABG pO2 74 L ABG pO2 ABG HCO3 ABG O2 Saturation ABG Base Excess ABG Hemoglobin Oxyhemoglobin Sodium 147 H Potassium Chloride Carbon Dioxide 31 H BUN Creatinine 0.5 L Glucose 154 H POC Glucose 178 H Calcium 8.2 L AST Total Creatine Kinase Albumin Triglycerides Influenza A (Rapid) 10/20/19 10/20/19 10/20/19 14:51 17:16 21:30 WBC 11.2 H RBC Hgb Hct MCV 78 L MCH 25 L RDW 23.9 H Lymph % (Auto) [place] % (Auto) Lymph # Seg Neutrophils % Seg Neuts % (Manual) Monocytes % (Manual) Lymphocytes # (Manual) Monocytes # (Manual) POC ABG pH ABG pH POC ABG pCO2 POC ABG pO2 ABG pO2 ABG HCO3 ABG O2 Saturation ABG Base Excess ABG Hemoglobin Oxyhemoglobin Sodium Potassium Chloride Carbon Dioxide BUN Creatinine Glucose POC Glucose 143 H 152 H Calcium AST Total Creatine Kinase Albumin Triglycerides Influenza A (Rapid) 10/20/19 10/21/19 10/21/19 22:52 05:55 08:27 WBC RBC Hgb Hct MCV MCH RDW Lymph % (Auto) [place] % (Auto) Lymph # Seg Neutrophils % Seg Neuts % (Manual) Monocytes % (Manual) Lymphocytes # (Manual) Monocytes # (Manual) POC ABG pH ABG pH POC ABG pCO2 POC ABG pO2 ABG pO2 ABG HCO3 ABG O2 Saturation ABG Base Excess ABG Hemoglobin Oxyhemoglobin Sodium Potassium Chloride Carbon Dioxide BUN Creatinine Glucose POC Glucose 179 H 115 H 131 H Calcium AST Total Creatine Kinase Albumin Triglycerides Influenza A (Rapid) 10/21/19 10/21/19 10/21/19 11:52 16:23 23:38 WBC RBC Hgb Hct MCV MCH RDW Lymph % (Auto) [place] % (Auto) Lymph # Seg Neutrophils % Seg Neuts % (Manual) Monocytes % (Manual) Lymphocytes # (Manual) Monocytes # (Manual) POC ABG pH ABG pH POC ABG pCO2 POC ABG pO2 ABG pO2 ABG HCO3 ABG O2 Saturation ABG Base Excess ABG Hemoglobin Oxyhemoglobin Sodium Potassium Chloride Carbon Dioxide BUN Creatinine Glucose POC Glucose 122 H 120 H 115 H Calcium AST Total Creatine Kinase Albumin Triglycerides Influenza A (Rapid) 10/22/19 10/22/19 10/22/19 00:35 05:19 06:10 WBC RBC Hgb Hct MCV MCH 25 L RDW 22.8 H Lymph % (Auto) [place] % (Auto) Lymph # Seg Neutrophils % Seg Neuts % (Manual) Monocytes % (Manual) Lymphocytes # (Manual) Monocytes # (Manual) POC ABG pH ABG pH 7.520 H POC ABG pCO2 POC ABG pO2 ABG pO2 64.4 L ABG HCO3 36.8 H ABG O2 Saturation ABG Base Excess 12.6 H ABG Hemoglobin 10.4 L Oxyhemoglobin Sodium Potassium Chloride Carbon Dioxide BUN Creatinine Glucose POC Glucose 108 H Calcium AST Total Creatine Kinase Albumin Triglycerides Influenza A (Rapid) 10/22/19 10/24/19 10/25/19 15:40 05:49 04:20 WBC RBC Hgb Hct MCV MCH RDW Lymph % (Auto) [place] % (Auto) Lymph # Seg Neutrophils % Seg Neuts % (Manual) Monocytes % (Manual) Lymphocytes # (Manual) Monocytes # (Manual) POC ABG pH 7.454 H ABG pH POC ABG pCO2 64.1 H 63.5 H POC ABG pO2 73 L ABG pO2 ABG HCO3 ABG O2 Saturation ABG Base Excess ABG Hemoglobin Oxyhemoglobin Sodium 136 L D Potassium Chloride 97.6 L Carbon Dioxide BUN 19 H Creatinine Glucose 125 H POC Glucose Calcium AST Total Creatine Kinase Albumin Triglycerides Influenza A (Rapid) 10/25/19 10/25/19 10/26/19 05:35 05:35 04:19 WBC RBC Hgb 10.0 L Hct MCV MCH 25 L RDW 22.0 H Lymph % (Auto) [place] % (Auto) Lymph # Seg Neutrophils % Seg Neuts % (Manual) Monocytes % (Manual) Lymphocytes # (Manual) Monocytes # (Manual) POC ABG pH ABG pH POC ABG pCO2 66.1 H POC ABG pO2 75 L ABG pO2 ABG HCO3 ABG O2 Saturation ABG Base Excess ABG Hemoglobin Oxyhemoglobin Sodium 147 H D Potassium Chloride Carbon Dioxide 34 H D BUN 23 H Creatinine 0.5 L Glucose 184 H POC Glucose Calcium AST Total Creatine Kinase Albumin Triglycerides Influenza A (Rapid) 10/26/19 10/26/19 10/26/19 05:20 05:20 12:44 WBC RBC Hgb 9.5 L Hct MCV MCH 25 L RDW 22.3 H Lymph % (Auto) [place] % (Auto) Lymph # Seg Neutrophils % Seg Neuts % (Manual) Monocytes % (Manual) Lymphocytes # (Manual) Monocytes # (Manual) POC ABG pH 7.501 H ABG pH POC ABG pCO2 54.7 H POC ABG pO2 69 L ABG pO2 ABG HCO3 ABG O2 Saturation ABG Base Excess ABG Hemoglobin Oxyhemoglobin Sodium 152 H Potassium Chloride Carbon Dioxide 33 H BUN 27 H Creatinine 0.6 L Glucose 135 H POC Glucose Calcium AST Total Creatine Kinase Albumin Triglycerides Influenza A (Rapid) 10/27/19 10/27/19 10/27/19 03:30 05:40 05:40 WBC RBC 3.62 L Hgb 9.4 L Hct 29.1 L MCV MCH 26 L RDW 21.7 H Lymph % (Auto) [place] % (Auto) Lymph # Seg Neutrophils % Seg Neuts % (Manual) Monocytes % (Manual) Lymphocytes # (Manual) Monocytes # (Manual) POC ABG pH ABG pH 7.472 H POC ABG pCO2 POC ABG pO2 ABG pO2 ABG HCO3 38.2 H ABG O2 Saturation ABG Base Excess 13.3 H ABG Hemoglobin 6.5 L Oxyhemoglobin Sodium 149 H Potassium 3.3 L Chloride Carbon Dioxide 31 H BUN 25 H Creatinine 0.5 L Glucose 142 H POC Glucose Calcium 8.2 L AST Total Creatine Kinase Albumin Triglycerides Influenza A (Rapid) 10/27/19 10/28/19 10/28/19 05:40 05:19 05:56 WBC RBC Hgb Hct MCV MCH RDW Lymph % (Auto) [place] % (Auto) Lymph # Seg Neutrophils % Seg Neuts % (Manual) Monocytes % (Manual) Lymphocytes # (Manual) Monocytes # (Manual) POC ABG pH 7.489 H ABG pH POC ABG pCO2 51.0 H POC ABG pO2 71 L ABG pO2 ABG HCO3 ABG O2 Saturation ABG Base Excess ABG Hemoglobin Oxyhemoglobin Sodium 153 H Potassium Chloride Carbon Dioxide 31 H BUN Creatinine 0.4 L Glucose 111 H POC Glucose Calcium 8.1 L AST Total Creatine Kinase Albumin Triglycerides 279 H Influenza A (Rapid) 10/29/19 10/29/19 10/30/19 03:54 04:21 04:48 WBC RBC Hgb Hct MCV MCH RDW Lymph % (Auto) [place] % (Auto) Lymph # Seg Neutrophils % Seg Neuts % (Manual) Monocytes % (Manual) Lymphocytes # (Manual) Monocytes # (Manual) POC ABG pH 7.506 H 7.508 H ABG pH POC ABG pCO2 53.6 H 49.6 H POC ABG pO2 ABG pO2 ABG HCO3 ABG O2 Saturation ABG Base Excess ABG Hemoglobin Oxyhemoglobin Sodium 150 H Potassium Chloride Carbon Dioxide BUN Creatinine 0.4 L Glucose 137 H POC Glucose Calcium AST Total Creatine Kinase Albumin Triglycerides Influenza A (Rapid) 10/30/19 10/30/19 10/31/19 09:54 21:08 00:17 WBC RBC Hgb Hct MCV MCH RDW Lymph % (Auto) [place] % (Auto) Lymph # Seg Neutrophils % Seg Neuts % (Manual) Monocytes % (Manual) Lymphocytes # (Manual) Monocytes # (Manual) POC ABG pH 7.455 H ABG pH POC ABG pCO2 58.6 H POC ABG pO2 74 L ABG pO2 ABG HCO3 ABG O2 Saturation ABG Base Excess ABG Hemoglobin Oxyhemoglobin Sodium 148 H Potassium Chloride Carbon Dioxide BUN Creatinine 0.4 L Glucose 156 H POC Glucose 160 H Calcium AST Total Creatine Kinase Albumin Triglycerides Influenza A (Rapid) 10/31/19 10/31/19 10/31/19 04:42 08:02 16:24 WBC RBC Hgb Hct MCV MCH RDW Lymph % (Auto) [place] % (Auto) Lymph # Seg Neutrophils % Seg Neuts % (Manual) Monocytes % (Manual) Lymphocytes # (Manual) Monocytes # (Manual) POC ABG pH ABG pH POC ABG pCO2 62.2 H POC ABG pO2 76 L ABG pO2 ABG HCO3 ABG O2 Saturation ABG Base Excess ABG Hemoglobin Oxyhemoglobin Sodium 149 H Potassium Chloride Carbon Dioxide BUN Creatinine 0.4 L Glucose 146 H POC Glucose 143 H Calcium AST Total Creatine Kinase Albumin Triglycerides Influenza A (Rapid) 11/01/19 11/01/19 11/01/19 04:25 05:30 05:30 WBC RBC Hgb 9.7 L Hct 30.1 L MCV MCH 26 L RDW 21.6 H Lymph % (Auto) [place] % (Auto) Lymph # Seg Neutrophils % Seg Neuts % (Manual) Monocytes % (Manual) 10.0 H Lymphocytes # (Manual) Monocytes # (Manual) 0.9 H POC ABG pH ABG pH POC ABG pCO2 POC ABG pO2 ABG pO2 67.0 L ABG HCO3 38.2 H ABG O2 Saturation 94.2 L ABG Base Excess 11.8 H ABG Hemoglobin 10.7 L Oxyhemoglobin 91.6 L Sodium 147 H Potassium Chloride Carbon Dioxide 31 H BUN Creatinine 0.4 L Glucose 136 H POC Glucose Calcium AST Total Creatine Kinase Albumin Triglycerides Influenza A (Rapid) 11/01/19 11/02/19 11/02/19 10:32 22:46 23:02 WBC RBC Hgb Hct MCV MCH RDW Lymph % (Auto) [place] % (Auto) Lymph # Seg Neutrophils % Seg Neuts % (Manual) Monocytes % (Manual) Lymphocytes # (Manual) Monocytes # (Manual) POC ABG pH 7.465 H 7.522 H ABG pH POC ABG pCO2 56.8 H 50.0 H POC ABG pO2 71 L ABG pO2 ABG HCO3 ABG O2 Saturation ABG Base Excess ABG Hemoglobin Oxyhemoglobin Sodium Potassium Chloride Carbon Dioxide BUN Creatinine Glucose POC Glucose 126 H Calcium AST Total Creatine Kinase Albumin Triglycerides Influenza A (Rapid) 11/04/19 11/05/19 11/08/19 05:57 04:22 11:47 WBC RBC Hgb Hct MCV MCH RDW Lymph % (Auto) [place] % (Auto) Lymph # Seg Neutrophils % Seg Neuts % (Manual) Monocytes % (Manual) Lymphocytes # (Manual) Monocytes # (Manual) POC ABG pH ABG pH POC ABG pCO2 POC ABG pO2 ABG pO2 ABG HCO3 ABG O2 Saturation ABG Base Excess ABG Hemoglobin Oxyhemoglobin Sodium 148 H Potassium 3.1 L 3.4 L Chloride 97.4 L Carbon Dioxide 34 H 31 H BUN Creatinine 0.5 L 0.4 L Glucose 128 H 110 H POC Glucose 147 H Calcium AST Total Creatine Kinase Albumin Triglycerides Influenza A (Rapid) Allied health notes reviewed: RT
[2019-11-09] MEDS: PANTOPRAZOLE 40 MG TAB PO SCH (15:36)
[2019-11-09] MEDS: TAMSULOSIN 0.4 MG CAP PO SCH (15:37)
[2019-11-09] MEDS: carvediloL 6.25 MG TAB PO SCH ×3 (15:37→22:01)
[2019-11-09] MEDS ORDERED: NEOMY 3.5 MG/BACIT 400 UNITS/POLY B 5000 UNITS/GM OINT PACKET TP ONE (18:56)
[2019-11-10] MEDS: HEPARIN 5,000 UNIT/1 ML VIAL SUB-Q SCH ×3 (06:15→21:48)
[2019-11-10] MEDS: IPRATROPIUM/ALBUTEROL SULFATE 3 ML AMPUL.NEB IH SCH ×3 (08:56→19:44)
[2019-11-10] MEDS: carvediloL 6.25 MG TAB PO SCH (11:00)
[2019-11-10 11:21] LABS: ABG Base Excess 3.9 mmol/L (-2.0-3.0); ABG HCO3 29.3 mmol/L (20.0-26.0); ABG Methemoglobin 0.5 % (0.0-1.5); ABG Oxygen Saturation 90.8 % (95.0-99.0); ABG PCO2 46.6 mm Hg; ABG PH 7.416 pH Units (7.350-7.450); ABG PO2 57.9 mm Hg (80.0-90.0)
[2019-11-10] MEDS: PANTOPRAZOLE 40 MG TAB PO SCH (11:47)
[2019-11-10] MEDS: TAMSULOSIN 0.4 MG CAP PO SCH (11:47)
[2019-11-10] MEDS ORDERED: carvediloL 6.25 MG TAB PO SCH (14:07)
--- NOTE | 2019-11-10 14:15 | Progress Note ---
Assessment and Plan /Acute hypoxemic respiratory failure. -Respiratory/tracheal aspirate reveals Enterobacter. The patient failed BiPAP and required intubation on 10/23/2019. Patient now extubated. On Oxygen by NC 2l/min. Pulmonary following. /Sepsis. Etiology secondary to pneumonia/influenza A. - Continue antibiotics per ID. /Influenza A. Completed high dose prolonged Tamiflu course. /Bilateral pneumonia. resp culture with GNR, patient on Cefepime. /Acute on chronic diastolic heart failure. - Echocardiogram revealed The left ventricular size is mildly dilated, mild to moderate concentric LVH, est EF 40-45%, left atrium is mildly dilated, trace MR, mild TR, mild to moderate Pulmonary hypertension, RVSP is calculated at 42 mmHg. /Obesity hypoventilation syndrome/DEAN. -Outpatient evaluation for sleep apnea /Morbid obesity. BMI is 83. - Weight loss and life style modifications on discharge. /Agitation on and off, now resolved. calm today, CT head could not be done because of body habitus. /physical Debility- PT eval ongoing Hopefully dc soon. Awaiting PT recommendation: home with HH versus facility. Brief history: The patient is a 49-year-old female with morbid obesity, hypertension, lymp hedema, functional quadriplegia and sleep apnea came into the emergency room with shortness of breath and hypoxia. She was started on BiPAP due to her respiratory failure. She was also found to have influenza A and was started empirically on treatment. The patient failed BiPAP and required intubation on 10/23/2019. Patient now extubated. waiting on PT clearance for discharge. Hospitalist Physical GEN: Not in acute distress, lying in bed, morbidly obese HEENT: Normocephalic, atraumatic, Neck: supple, No JVD Lungs: Clear to auscultation bilaterally, no wheeze, heart;S1 and S2 reg, no murmurs Abd:soft, non tender, non distended, normal bowel sounds Ext: No edema, no clubbing, no cyanosis Neuro: AAO X 3, no focal neurological signs, moves all ext Subjective Date of service: 11/10/19 Principal diagnosis: acute respiratory distress Interval history: Patient seen and examined. Medical records and medication list reviewed. No acute event overnight noted by the RN. Patient denies any chest pain or difficulty breathing. Patient is tolerating diet. States her dizziness improved, PT final recommendation pending Discussed plan of care at bedside with patient. Objective - Constitutional Vitals: Vital Signs - 12hr 11/10/19 11/10/19 11/10/19 02:12 02:40 05:53 Temperature 97.9 F Pulse Rate 97 H 99 H Pulse Rate [ Anterior Bilateral Throughout] Respiratory 18 24 20 Rate Respiratory Rate [Anterior Bilateral Throughout] Blood Pressure 127/71 O2 Sat by Pulse 99 100 Oximetry 11/10/19 11/10/19 08:59 09:06 Temperature Pulse Rate Pulse Rate [ 112 H Anterior Bilateral Throughout] Respiratory Rate Respiratory 18 Rate [Anterior Bilateral Throughout] Blood Pressure O2 Sat by Pulse 97 Oximetry - Labs CBC & Chem 7: 11/01/19 05:30 11/07/19 14:29 Labs: Abnormal lab results 11/10/19 Range/Units 09:50 ABG pO2 57.9 L (80.0-90.0) mm Hg ABG HCO3 29.3 H (20.0-26.0) mmol/L ABG O2 Saturation 90.8 L (95.0-99.0) % ABG Base Excess 3.9 H (-2.0-3.0) mmol/L Oxyhemoglobin 88.3 L (95.0-99.0) %
--- NOTE | 2019-11-10 17:50 | Progress Note ---
Assessment and Plan Patient 49yo female with history of HTN recently treated for pneumonia and influenza. Patient is awake and alert. She is on 2.5L O2 via nasal canula with O2 Saturation 97%. BIPAP on standby in room. Patients ABG on room air 11/10/2019 pH 7.4/ pCO2 47/ pO2 58/ HCO3 29/ O2 Sat 91%/ FiO2 21% Patient is afebrile with no leukocytosis. Chest xray 11/08/19 still reported diffuse bilateral interstitial disease. Obtaining ZBIGNIEW,RF, MAYO level ,CANCA. - Patient Problems (1) Pleural effusion Current Visit: Yes Status: Acute Plan to address problem: small bilateral pleural effusions Follow with repeat chest xray (2) Acute and chronic respiratory failure with hypercapnia Current Visit: Yes Status: Acute Plan to address problem: 1. On 2.5 L O2 via nasal canula 2. Albuterol/Atrovent aerosol treatments q6 PRN shortness of breath. 3. Brovanna and Budesonide aerosol treatments q12 4. Continue Cefepime 5. Continue SC Heparin 6. Continue Protonix 7. Continue Physical Therapy (3) Morbid obesity Current Visit: Yes Status: Acute Plan to address problem: Recommend to lose weight Recommend sleep study as outpatient Subjective Date of service: 11/10/19 Principal diagnosis: acute respiratory distress Interval history: Patient 49yo female with history of HTN recently treated for pneumonia and influenza. Patient is awake and alert. She is on 2.5L O2 via nasal canula with O2 Saturation 97%. BIPAP on standby in room. Patients ABG on room air 11/10/2019 pH 7.4/ pCO2 47/ pO2 58/ HCO3 29/ O2 Sat 91%/ FiO2 21% Patient is afebrile with no leukocytosis. Chest xray 11/08/19 still reported diffuse bilateral interstitial disease. Obtaining ZBIGNIEW,RF, MAYO level ,CANCA. Objective Vital Signs - 12hr 11/10/19 11/10/19 11/10/19 05:53 08:59 09:06 Temperature 97.9 F Pulse Rate 99 H Pulse Rate [ 112 H Anterior Bilateral Throughout] Respiratory 20 Rate Respiratory 18 Rate [Anterior Bilateral Throughout] Blood Pressure 127/71 O2 Sat by Pulse 100 97 Oximetry 11/10/19 11/10/19 11/10/19 10:29 15:29 16:53 Temperature 99.5 F Pulse Rate 115 H Pulse Rate [ 100 H Anterior Bilateral Throughout] Respiratory 18 Rate Respiratory 18 Rate [Anterior Bilateral Throughout] Blood Pressure 130/70 140/67 O2 Sat by Pulse 99 Oximetry Constitutional: no acute distress, alert Eyes: non-icteric ENT: oropharynx moist, other (small bowel feeding tube in nares) Neck: supple, no lymphadenopathy, no JVD, other (short neck, large circunference) Effort: normal Ascultation: Bilateral: diminished breath sounds, rhonchi Percussion: Bilateral: not dull Cardiovascular: regular rate and rhythm, other (S1,S2) Gastrointestinal: normoactive bowel sounds, soft, non-tender, non-distended Integumentary: normal Extremities: no cyanosis, no edema, pink and warm, pulses normal Neurologic: non-focal exam, pupils equal and round Psychiatric: mood appropriate, affect normal CBC and BMP: 11/01/19 05:30 11/07/19 14:29 ABG, PT/INR, D-dimer: ABG POC ABG pH 7.522 (7.35-7.45) H 11/02/19 23:02 ABG pH 7.416 pH Units (7.350-7.450) 11/10/19 09:50 POC ABG pCO2 50.0 (35-45) H 11/02/19 23:02 ABG pCO2 46.6 mm Hg 11/10/19 09:50 POC ABG pO2 71 (80-105) L 11/02/19 23:02 ABG pO2 57.9 mm Hg (80.0-90.0) L 11/10/19 09:50 POC ABG HCO3 41.0 (22-26 mml/L) 11/02/19 23:02 POC ABG Total CO2 42 (23-27mmol/L) 11/02/19 23:02 POC ABG O2 Sat 95 11/02/19 23:02 ABG O2 Saturation 90.8 % (95.0-99.0) L 11/10/19 09:50 Abnormal lab findings: Abnormal Labs 10/17/19 10/17/19 10/17/19 20:57 20:57 Unknown WBC 4.0 L RBC Hgb Hct MCV 78 L MCH 25 L RDW 24.7 H Lymph % (Auto) [place] % (Auto) Lymph # Seg Neutrophils % Seg Neuts % (Manual) 77.0 H Monocytes % (Manual) 9.0 H Lymphocytes # (Manual) 0.6 L Monocytes # (Manual) POC ABG pH ABG pH POC ABG pCO2 POC ABG pO2 ABG pO2 ABG HCO3 ABG O2 Saturation ABG Base Excess ABG Hemoglobin Oxyhemoglobin Sodium Potassium 3.5 L Chloride Carbon Dioxide BUN Creatinine 0.6 L Glucose 147 H POC Glucose Calcium 7.9 L AST 57 H Total Creatine Kinase 857 H Albumin 3.0 L Triglycerides Influenza A (Rapid) Positive A 10/18/19 10/18/19 10/18/19 05:21 05:21 09:19 WBC 3.3 L RBC Hgb Hct MCV MCH 25 L RDW 24.3 H Lymph % (Auto) 12.[address] [place] % (Auto) 7.9 H Lymph # 0.4 L Seg Neutrophils % 78.6 H Seg Neuts % (Manual) Monocytes % (Manual) Lymphocytes # (Manual) Monocytes # (Manual) POC ABG pH ABG pH POC ABG pCO2 POC ABG pO2 ABG pO2 131.3 H ABG HCO3 30.2 H ABG O2 Saturation ABG Base Excess 4.5 H ABG Hemoglobin 10.7 L Oxyhemoglobin Sodium Potassium Chloride Carbon Dioxide BUN Creatinine Glucose 167 H POC Glucose Calcium 8.3 L AST Total Creatine Kinase Albumin Triglycerides Influenza A (Rapid) 10/18/19 10/18/19 10/19/19 11:28 18:27 06:39 WBC RBC Hgb Hct MCV MCH RDW Lymph % (Auto) [place] % (Auto) Lymph # Seg Neutrophils % Seg Neuts % (Manual) Monocytes % (Manual) Lymphocytes # (Manual) Monocytes # (Manual) POC ABG pH 7.461 H 7.487 H ABG pH POC ABG pCO2 53.4 H 52.8 H 51.7 H POC ABG pO2 70 L 71 L ABG pO2 ABG HCO3 ABG O2 Saturation ABG Base Excess ABG Hemoglobin Oxyhemoglobin Sodium Potassium Chloride Carbon Dioxide BUN Creatinine Glucose POC Glucose Calcium AST Total Creatine Kinase Albumin Triglycerides Influenza A (Rapid) 10/19/19 10/20/19 10/20/19 23:25 05:31 09:08 WBC RBC Hgb Hct MCV MCH RDW Lymph % (Auto) [place] % (Auto) Lymph # Seg Neutrophils % Seg Neuts % (Manual) Monocytes % (Manual) Lymphocytes # (Manual) Monocytes # (Manual) POC ABG pH ABG pH POC ABG pCO2 POC ABG pO2 ABG pO2 ABG HCO3 ABG O2 Saturation ABG Base Excess ABG Hemoglobin Oxyhemoglobin Sodium Potassium Chloride Carbon Dioxide BUN Creatinine Glucose POC Glucose 203 H 144 H 163 H Calcium AST Total Creatine Kinase Albumin Triglycerides Influenza A (Rapid) 10/20/19 10/20/19 10/20/19 10:25 13:22 14:51 WBC RBC Hgb Hct MCV MCH RDW Lymph % (Auto) [place] % (Auto) Lymph # Seg Neutrophils % Seg Neuts % (Manual) Monocytes % (Manual) Lymphocytes # (Manual) Monocytes # (Manual) POC ABG pH 7.632 H ABG pH POC ABG pCO2 POC ABG pO2 74 L ABG pO2 ABG HCO3 ABG O2 Saturation ABG Base Excess ABG Hemoglobin Oxyhemoglobin Sodium 147 H Potassium Chloride Carbon Dioxide 31 H BUN Creatinine 0.5 L Glucose 154 H POC Glucose 178 H Calcium 8.2 L AST Total Creatine Kinase Albumin Triglycerides Influenza A (Rapid) 10/20/19 10/20/19 10/20/19 14:51 17:16 21:30 WBC 11.2 H RBC Hgb Hct MCV 78 L MCH 25 L RDW 23.9 H Lymph % (Auto) [place] % (Auto) Lymph # Seg Neutrophils % Seg Neuts % (Manual) Monocytes % (Manual) Lymphocytes # (Manual) Monocytes # (Manual) POC ABG pH ABG pH POC ABG pCO2 POC ABG pO2 ABG pO2 ABG HCO3 ABG O2 Saturation ABG Base Excess ABG Hemoglobin Oxyhemoglobin Sodium Potassium Chloride Carbon Dioxide BUN Creatinine Glucose POC Glucose 143 H 152 H Calcium AST Total Creatine Kinase Albumin Triglycerides Influenza A (Rapid) 10/20/19 10/21/19 10/21/19 22:52 05:55 08:27 WBC RBC Hgb Hct MCV MCH RDW Lymph % (Auto) [place] % (Auto) Lymph # Seg Neutrophils % Seg Neuts % (Manual) Monocytes % (Manual) Lymphocytes # (Manual) Monocytes # (Manual) POC ABG pH ABG pH POC ABG pCO2 POC ABG pO2 ABG pO2 ABG HCO3 ABG O2 Saturation ABG Base Excess ABG Hemoglobin Oxyhemoglobin Sodium Potassium Chloride Carbon Dioxide BUN Creatinine Glucose POC Glucose 179 H 115 H 131 H Calcium AST Total Creatine Kinase Albumin Triglycerides Influenza A (Rapid) 10/21/19 10/21/19 10/21/19 11:52 16:23 23:38 WBC RBC Hgb Hct MCV MCH RDW Lymph % (Auto) [place] % (Auto) Lymph # Seg Neutrophils % Seg Neuts % (Manual) Monocytes % (Manual) Lymphocytes # (Manual) Monocytes # (Manual) POC ABG pH ABG pH POC ABG pCO2 POC ABG pO2 ABG pO2 ABG HCO3 ABG O2 Saturation ABG Base Excess ABG Hemoglobin Oxyhemoglobin Sodium Potassium Chloride Carbon Dioxide BUN Creatinine Glucose POC Glucose 122 H 120 H 115 H Calcium AST Total Creatine Kinase Albumin Triglycerides Influenza A (Rapid) 10/22/19 10/22/19 10/22/19 00:35 05:19 06:10 WBC RBC Hgb Hct MCV MCH 25 L RDW 22.8 H Lymph % (Auto) [place] % (Auto) Lymph # Seg Neutrophils % Seg Neuts % (Manual) Monocytes % (Manual) Lymphocytes # (Manual) Monocytes # (Manual) POC ABG pH ABG pH 7.520 H POC ABG pCO2 POC ABG pO2 ABG pO2 64.4 L ABG HCO3 36.8 H ABG O2 Saturation ABG Base Excess 12.6 H ABG Hemoglobin 10.4 L Oxyhemoglobin Sodium Potassium Chloride Carbon Dioxide BUN Creatinine Glucose POC Glucose 108 H Calcium AST Total Creatine Kinase Albumin Triglycerides Influenza A (Rapid) 10/22/19 10/24/19 10/25/19 15:40 05:49 04:20 WBC RBC Hgb Hct MCV MCH RDW Lymph % (Auto) [place] % (Auto) Lymph # Seg Neutrophils % Seg Neuts % (Manual) Monocytes % (Manual) Lymphocytes # (Manual) Monocytes # (Manual) POC ABG pH 7.454 H ABG pH POC ABG pCO2 64.1 H 63.5 H POC ABG pO2 73 L ABG pO2 ABG HCO3 ABG O2 Saturation ABG Base Excess ABG Hemoglobin Oxyhemoglobin Sodium 136 L D Potassium Chloride 97.6 L Carbon Dioxide BUN 19 H Creatinine Glucose 125 H POC Glucose Calcium AST Total Creatine Kinase Albumin Triglycerides Influenza A (Rapid) 10/25/19 10/25/19 10/26/19 05:35 05:35 04:19 WBC RBC Hgb 10.0 L Hct MCV MCH 25 L RDW 22.0 H Lymph % (Auto) [place] % (Auto) Lymph # Seg Neutrophils % Seg Neuts % (Manual) Monocytes % (Manual) Lymphocytes # (Manual) Monocytes # (Manual) POC ABG pH ABG pH POC ABG pCO2 66.1 H POC ABG pO2 75 L ABG pO2 ABG HCO3 ABG O2 Saturation ABG Base Excess ABG Hemoglobin Oxyhemoglobin Sodium 147 H D Potassium Chloride Carbon Dioxide 34 H D BUN 23 H Creatinine 0.5 L Glucose 184 H POC Glucose Calcium AST Total Creatine Kinase Albumin Triglycerides Influenza A (Rapid) 10/26/19 10/26/19 10/26/19 05:20 05:20 12:44 WBC RBC Hgb 9.5 L Hct MCV MCH 25 L RDW 22.3 H Lymph % (Auto) [place] % (Auto) Lymph # Seg Neutrophils % Seg Neuts % (Manual) Monocytes % (Manual) Lymphocytes # (Manual) Monocytes # (Manual) POC ABG pH 7.501 H ABG pH POC ABG pCO2 54.7 H POC ABG pO2 69 L ABG pO2 ABG HCO3 ABG O2 Saturation ABG Base Excess ABG Hemoglobin Oxyhemoglobin Sodium 152 H Potassium Chloride Carbon Dioxide 33 H BUN 27 H Creatinine 0.6 L Glucose 135 H POC Glucose Calcium AST Total Creatine Kinase Albumin Triglycerides Influenza A (Rapid) 10/27/19 10/27/19 10/27/19 03:30 05:40 05:40 WBC RBC 3.62 L Hgb 9.4 L Hct 29.1 L MCV MCH 26 L RDW 21.7 H Lymph % (Auto) [place] % (Auto) Lymph # Seg Neutrophils % Seg Neuts % (Manual) Monocytes % (Manual) Lymphocytes # (Manual) Monocytes # (Manual) POC ABG pH ABG pH 7.472 H POC ABG pCO2 POC ABG pO2 ABG pO2 ABG HCO3 38.2 H ABG O2 Saturation ABG Base Excess 13.3 H ABG Hemoglobin 6.5 L Oxyhemoglobin Sodium 149 H Potassium 3.3 L Chloride Carbon Dioxide 31 H BUN 25 H Creatinine 0.5 L Glucose 142 H POC Glucose Calcium 8.2 L AST Total Creatine Kinase Albumin Triglycerides Influenza A (Rapid) 10/27/19 10/28/19 10/28/19 05:40 05:19 05:56 WBC RBC Hgb Hct MCV MCH RDW Lymph % (Auto) [place] % (Auto) Lymph # Seg Neutrophils % Seg Neuts % (Manual) Monocytes % (Manual) Lymphocytes # (Manual) Monocytes # (Manual) POC ABG pH 7.489 H ABG pH POC ABG pCO2 51.0 H POC ABG pO2 71 L ABG pO2 ABG HCO3 ABG O2 Saturation ABG Base Excess ABG Hemoglobin Oxyhemoglobin Sodium 153 H Potassium Chloride Carbon Dioxide 31 H BUN Creatinine 0.4 L Glucose 111 H POC Glucose Calcium 8.1 L AST Total Creatine Kinase Albumin Triglycerides 279 H Influenza A (Rapid) 10/29/19 10/29/19 10/30/19 03:54 04:21 04:48 WBC RBC Hgb Hct MCV MCH RDW Lymph % (Auto) [place] % (Auto) Lymph # Seg Neutrophils % Seg Neuts % (Manual) Monocytes % (Manual) Lymphocytes # (Manual) Monocytes # (Manual) POC ABG pH 7.506 H 7.508 H ABG pH POC ABG pCO2 53.6 H 49.6 H POC ABG pO2 ABG pO2 ABG HCO3 ABG O2 Saturation ABG Base Excess ABG Hemoglobin Oxyhemoglobin Sodium 150 H Potassium Chloride Carbon Dioxide BUN Creatinine 0.4 L Glucose 137 H POC Glucose Calcium AST Total Creatine Kinase Albumin Triglycerides Influenza A (Rapid) 10/30/19 10/30/19 10/31/19 09:54 21:08 00:17 WBC RBC Hgb Hct MCV MCH RDW Lymph % (Auto) [place] % (Auto) Lymph # Seg Neutrophils % Seg Neuts % (Manual) Monocytes % (Manual) Lymphocytes # (Manual) Monocytes # (Manual) POC ABG pH 7.455 H ABG pH POC ABG pCO2 58.6 H POC ABG pO2 74 L ABG pO2 ABG HCO3 ABG O2 Saturation ABG Base Excess ABG Hemoglobin Oxyhemoglobin Sodium 148 H Potassium Chloride Carbon Dioxide BUN Creatinine 0.4 L Glucose 156 H POC Glucose 160 H Calcium AST Total Creatine Kinase Albumin Triglycerides Influenza A (Rapid) 10/31/19 10/31/19 10/31/19 04:42 08:02 16:24 WBC RBC Hgb Hct MCV MCH RDW Lymph % (Auto) [place] % (Auto) Lymph # Seg Neutrophils % Seg Neuts % (Manual) Monocytes % (Manual) Lymphocytes # (Manual) Monocytes # (Manual) POC ABG pH ABG pH POC ABG pCO2 62.2 H POC ABG pO2 76 L ABG pO2 ABG HCO3 ABG O2 Saturation ABG Base Excess ABG Hemoglobin Oxyhemoglobin Sodium 149 H Potassium Chloride Carbon Dioxide BUN Creatinine 0.4 L Glucose 146 H POC Glucose 143 H Calcium AST Total Creatine Kinase Albumin Triglycerides Influenza A (Rapid) 11/01/19 11/01/19 11/01/19 04:25 05:30 05:30 WBC RBC Hgb 9.7 L Hct 30.1 L MCV MCH 26 L RDW 21.6 H Lymph % (Auto) [place] % (Auto) Lymph # Seg Neutrophils % Seg Neuts % (Manual) Monocytes % (Manual) 10.0 H Lymphocytes # (Manual) Monocytes # (Manual) 0.9 H POC ABG pH ABG pH POC ABG pCO2 POC ABG pO2 ABG pO2 67.0 L ABG HCO3 38.2 H ABG O2 Saturation 94.2 L ABG Base Excess 11.8 H ABG Hemoglobin 10.7 L Oxyhemoglobin 91.6 L Sodium 147 H Potassium Chloride Carbon Dioxide 31 H BUN Creatinine 0.4 L Glucose 136 H POC Glucose Calcium AST Total Creatine Kinase Albumin Triglycerides Influenza A (Rapid) 11/01/19 11/02/19 11/02/19 10:32 22:46 23:02 WBC RBC Hgb Hct MCV MCH RDW Lymph % (Auto) [place] % (Auto) Lymph # Seg Neutrophils % Seg Neuts % (Manual) Monocytes % (Manual) Lymphocytes # (Manual) Monocytes # (Manual) POC ABG pH 7.465 H 7.522 H ABG pH POC ABG pCO2 56.8 H 50.0 H POC ABG pO2 71 L ABG pO2 ABG HCO3 ABG O2 Saturation ABG Base Excess ABG Hemoglobin Oxyhemoglobin Sodium Potassium Chloride Carbon Dioxide BUN Creatinine Glucose POC Glucose 126 H Calcium AST Total Creatine Kinase Albumin Triglycerides Influenza A (Rapid) 11/04/19 11/05/19 11/08/19 05:57 04:22 11:47 WBC RBC Hgb Hct MCV MCH RDW Lymph % (Auto) [place] % (Auto) Lymph # Seg Neutrophils % Seg Neuts % (Manual) Monocytes % (Manual) Lymphocytes # (Manual) Monocytes # (Manual) POC ABG pH ABG pH POC ABG pCO2 POC ABG pO2 ABG pO2 ABG HCO3 ABG O2 Saturation ABG Base Excess ABG Hemoglobin Oxyhemoglobin Sodium 148 H Potassium 3.1 L 3.4 L Chloride 97.4 L Carbon Dioxide 34 H 31 H BUN Creatinine 0.5 L 0.4 L Glucose 128 H 110 H POC Glucose 147 H Calcium AST Total Creatine Kinase Albumin Triglycerides Influenza A (Rapid) 11/10/19 09:50 WBC RBC Hgb Hct MCV MCH RDW Lymph % (Auto) [place] % (Auto) Lymph # Seg Neutrophils % Seg Neuts % (Manual) Monocytes % (Manual) Lymphocytes # (Manual) Monocytes # (Manual) POC ABG pH ABG pH POC ABG pCO2 POC ABG pO2 ABG pO2 57.9 L ABG HCO3 29.3 H ABG O2 Saturation 90.8 L ABG Base Excess 3.9 H ABG Hemoglobin Oxyhemoglobin 88.3 L Sodium Potassium Chloride Carbon Dioxide BUN Creatinine Glucose POC Glucose Calcium AST Total Creatine Kinase Albumin Triglycerides Influenza A (Rapid) Allied health notes reviewed: RT
[2019-11-10] MEDS: carvediloL 3.125 MG TAB PO SCH (21:48)
[2019-11-11] MEDS: HEPARIN 5,000 UNIT/1 ML VIAL SUB-Q SCH ×3 (05:12→21:50)
[2019-11-11] MEDS: IPRATROPIUM/ALBUTEROL SULFATE 3 ML AMPUL.NEB IH SCH ×3 (08:25→21:10)
--- NOTE | 2019-11-11 10:26 | Progress Note ---
Assessment and Plan Patient 49yo female with history of HTN recently treated for pneumonia and influenza. Patient is awake and alert. She is on 2.5L O2 via nasal canula with O2 Saturation 98%. BIPAP on standby in room. Patients ABG on room air 11/10/2019 pH 7.4/ pCO2 47/ pO2 58/ HCO3 29/ O2 Sat 91%/ FiO2 21% Patient is afebrile with no leukocytosis. Chest xray 11/08/19 still reported diffuse bilateral interstitial disease. Patient's rheumatoid factor reported <10 which is negative. ZBIGNIEW and C-ANCA results pending Recommend to check O2 saturation on room air and document in the chart. - Patient Problems (1) Pleural effusion Current Visit: Yes Status: Acute Plan to address problem: small bilateral pleural effusions Follow with repeat chest xray (2) Acute and chronic respiratory failure with hypercapnia Current Visit: Yes Status: Acute Plan to address problem: 1. On 2.5 L O2 via nasal canula 2. Albuterol/Atrovent aerosol treatments q6 PRN shortness of breath. 3. Brovanna and Budesonide aerosol treatments q12 4. Continue Cefepime 5. Continue SC Heparin 6. Continue Protonix 7. Continue Physical Therapy (3) Morbid obesity Current Visit: Yes Status: Acute Plan to address problem: Recommend to lose weight Recommend sleep study as outpatient Subjective Date of service: 11/11/19 Principal diagnosis: acute respiratory distress Interval history: Patient 49yo female with history of HTN recently treated for pneumonia and influenza. Patient is awake and alert. She is on 2.5L O2 via nasal canula with O2 Saturation 98%. BIPAP on standby in room. Patients ABG on room air 11/10/2019 pH 7.4/ pCO2 47/ pO2 58/ HCO3 29/ O2 Sat 91%/ FiO2 21% Patient is afebrile with no leukocytosis. Chest xray 11/08/19 still reported diffuse bilateral interstitial disease. Patient's rheumatoid factor reported <10 which is negative. ZBIGNIEW and C-ANCA results pending Recommend to check O2 saturation on room air and document in the chart. Objective Vital Signs - 12hr 11/10/19 11/11/19 11/11/19 22:35 04:08 04:53 Temperature 98.2 F Pulse Rate 99 H Pulse Rate [ Anterior Bilateral Throughout] Respiratory 29 H 19 20 Rate Respiratory Rate [Anterior Bilateral Throughout] Blood Pressure 131/69 O2 Sat by Pulse 98 Oximetry 11/11/19 11/11/19 11/11/19 06:37 08:26 08:40 Temperature Pulse Rate 92 H Pulse Rate [ 104 H Anterior Bilateral Throughout] Respiratory Rate Respiratory 20 Rate [Anterior Bilateral Throughout] Blood Pressure O2 Sat by Pulse 97 Oximetry Constitutional: no acute distress, alert Eyes: non-icteric ENT: oropharynx moist Neck: supple, no lymphadenopathy, no JVD, other (short neck, large circunference) Effort: normal Ascultation: Bilateral: diminished breath sounds, rhonchi Percussion: Bilateral: not dull Cardiovascular: regular rate and rhythm, other (S1,S2) Gastrointestinal: normoactive bowel sounds, soft, non-tender, non-distended Integumentary: normal Extremities: no cyanosis, no edema, pink and warm, pulses normal Neurologic: non-focal exam, pupils equal and round Psychiatric: mood appropriate, affect normal CBC and BMP: 11/01/19 05:30 11/07/19 14:29 ABG, PT/INR, D-dimer: ABG POC ABG pH 7.522 (7.35-7.45) H 11/02/19 23:02 ABG pH 7.416 pH Units (7.350-7.450) 11/10/19 09:50 POC ABG pCO2 50.0 (35-45) H 11/02/19 23:02 ABG pCO2 46.6 mm Hg 11/10/19 09:50 POC ABG pO2 71 (80-105) L 11/02/19 23:02 ABG pO2 57.9 mm Hg (80.0-90.0) L 11/10/19 09:50 POC ABG HCO3 41.0 (22-26 mml/L) 11/02/19 23:02 POC ABG Total CO2 42 (23-27mmol/L) 11/02/19 23:02 POC ABG O2 Sat 95 11/02/19 23:02 ABG O2 Saturation 90.8 % (95.0-99.0) L 11/10/19 09:50 Abnormal lab findings: Abnormal Labs 10/17/19 10/17/19 10/17/19 20:57 20:57 Unknown WBC 4.0 L RBC Hgb Hct MCV 78 L MCH 25 L RDW 24.7 H Lymph % (Auto) [place] % (Auto) Lymph # Seg Neutrophils % Seg Neuts % (Manual) 77.0 H Monocytes % (Manual) 9.0 H Lymphocytes # (Manual) 0.6 L Monocytes # (Manual) POC ABG pH ABG pH POC ABG pCO2 POC ABG pO2 ABG pO2 ABG HCO3 ABG O2 Saturation ABG Base Excess ABG Hemoglobin Oxyhemoglobin Sodium Potassium 3.5 L Chloride Carbon Dioxide BUN Creatinine 0.6 L Glucose 147 H POC Glucose Calcium 7.9 L AST 57 H Total Creatine Kinase 857 H Albumin 3.0 L Triglycerides Influenza A (Rapid) Positive A 10/18/19 10/18/19 10/18/19 05:21 05:21 09:19 WBC 3.3 L RBC Hgb Hct MCV MCH 25 L RDW 24.3 H Lymph % (Auto) 12.5 L [place] % (Auto) 7.9 H Lymph # 0.4 L Seg Neutrophils % 78.6 H Seg Neuts % (Manual) Monocytes % (Manual) Lymphocytes # (Manual) Monocytes # (Manual) POC ABG pH ABG pH POC ABG pCO2 POC ABG pO2 ABG pO2 131.3 H ABG HCO3 30.2 H ABG O2 Saturation ABG Base Excess 4.5 H ABG Hemoglobin 10.7 L Oxyhemoglobin Sodium Potassium Chloride Carbon Dioxide BUN Creatinine Glucose 167 H POC Glucose Calcium 8.3 L AST Total Creatine Kinase Albumin Triglycerides Influenza A (Rapid) 10/18/19 10/18/19 10/19/19 11:28 18:27 06:39 WBC RBC Hgb Hct MCV MCH RDW Lymph % (Auto) [place] % (Auto) Lymph # Seg Neutrophils % Seg Neuts % (Manual) Monocytes % (Manual) Lymphocytes # (Manual) Monocytes # (Manual) POC ABG pH 7.461 H 7.487 H ABG pH POC ABG pCO2 53.4 H 52.8 H 51.7 H POC ABG pO2 70 L 71 L ABG pO2 ABG HCO3 ABG O2 Saturation ABG Base Excess ABG Hemoglobin Oxyhemoglobin Sodium Potassium Chloride Carbon Dioxide BUN Creatinine Glucose POC Glucose Calcium AST Total Creatine Kinase Albumin Triglycerides Influenza A (Rapid) 10/19/19 10/20/19 10/20/19 23:25 05:31 09:08 WBC RBC Hgb Hct MCV MCH RDW Lymph % (Auto) [place] % (Auto) Lymph # Seg Neutrophils % Seg Neuts % (Manual) Monocytes % (Manual) Lymphocytes # (Manual) Monocytes # (Manual) POC ABG pH ABG pH POC ABG pCO2 POC ABG pO2 ABG pO2 ABG HCO3 ABG O2 Saturation ABG Base Excess ABG Hemoglobin Oxyhemoglobin Sodium Potassium Chloride Carbon Dioxide BUN Creatinine Glucose POC Glucose 203 H 144 H 163 H Calcium AST Total Creatine Kinase Albumin Triglycerides Influenza A (Rapid) 10/20/19 10/20/19 10/20/19 10:25 13:22 14:51 WBC RBC Hgb Hct MCV MCH RDW Lymph % (Auto) [place] % (Auto) Lymph # Seg Neutrophils % Seg Neuts % (Manual) Monocytes % (Manual) Lymphocytes # (Manual) Monocytes # (Manual) POC ABG pH 7.632 H ABG pH POC ABG pCO2 POC ABG pO2 74 L ABG pO2 ABG HCO3 ABG O2 Saturation ABG Base Excess ABG Hemoglobin Oxyhemoglobin Sodium 147 H Potassium Chloride Carbon Dioxide 31 H BUN Creatinine 0.5 L Glucose 154 H POC Glucose 178 H Calcium 8.2 L AST Total Creatine Kinase Albumin Triglycerides Influenza A (Rapid) 10/20/19 10/20/19 10/20/19 14:51 17:16 21:30 WBC 11.2 H RBC Hgb Hct MCV 78 L MCH 25 L RDW 23.9 H Lymph % (Auto) [place] % (Auto) Lymph # Seg Neutrophils % Seg Neuts % (Manual) Monocytes % (Manual) Lymphocytes # (Manual) Monocytes # (Manual) POC ABG pH ABG pH POC ABG pCO2 POC ABG pO2 ABG pO2 ABG HCO3 ABG O2 Saturation ABG Base Excess ABG Hemoglobin Oxyhemoglobin Sodium Potassium Chloride Carbon Dioxide BUN Creatinine Glucose POC Glucose 143 H 152 H Calcium AST Total Creatine Kinase Albumin Triglycerides Influenza A (Rapid) 10/20/19 10/21/19 10/21/19 22:52 05:55 08:27 WBC RBC Hgb Hct MCV MCH RDW Lymph % (Auto) [place] % (Auto) Lymph # Seg Neutrophils % Seg Neuts % (Manual) Monocytes % (Manual) Lymphocytes # (Manual) Monocytes # (Manual) POC ABG pH ABG pH POC ABG pCO2 POC ABG pO2 ABG pO2 ABG HCO3 ABG O2 Saturation ABG Base Excess ABG Hemoglobin Oxyhemoglobin Sodium Potassium Chloride Carbon Dioxide BUN Creatinine Glucose POC Glucose 179 H 115 H 131 H Calcium AST Total Creatine Kinase Albumin Triglycerides Influenza A (Rapid) 10/21/19 10/21/19 10/21/19 11:52 16:23 23:38 WBC RBC Hgb Hct MCV MCH RDW Lymph % (Auto) [place] % (Auto) Lymph # Seg Neutrophils % Seg Neuts % (Manual) Monocytes % (Manual) Lymphocytes # (Manual) Monocytes # (Manual) POC ABG pH ABG pH POC ABG pCO2 POC ABG pO2 ABG pO2 ABG HCO3 ABG O2 Saturation ABG Base Excess ABG Hemoglobin Oxyhemoglobin Sodium Potassium Chloride Carbon Dioxide BUN Creatinine Glucose POC Glucose 122 H 120 H 115 H Calcium AST Total Creatine Kinase Albumin Triglycerides Influenza A (Rapid) 10/22/19 10/22/19 10/22/19 00:35 05:19 06:10 WBC RBC Hgb Hct MCV MCH 25 L RDW 22.8 H Lymph % (Auto) [place] % (Auto) Lymph # Seg Neutrophils % Seg Neuts % (Manual) Monocytes % (Manual) Lymphocytes # (Manual) Monocytes # (Manual) POC ABG pH ABG pH 7.520 H POC ABG pCO2 POC ABG pO2 ABG pO2 64.4 L ABG HCO3 36.8 H ABG O2 Saturation ABG Base Excess 12.6 H ABG Hemoglobin 10.4 L Oxyhemoglobin Sodium Potassium Chloride Carbon Dioxide BUN Creatinine Glucose POC Glucose 108 H Calcium AST Total Creatine Kinase Albumin Triglycerides Influenza A (Rapid) 10/22/19 10/24/19 10/25/19 15:40 05:49 04:20 WBC RBC Hgb Hct MCV MCH RDW Lymph % (Auto) [place] % (Auto) Lymph # Seg Neutrophils % Seg Neuts % (Manual) Monocytes % (Manual) Lymphocytes # (Manual) Monocytes # (Manual) POC ABG pH 7.454 H ABG pH POC ABG pCO2 64.1 H 63.5 H POC ABG pO2 73 L ABG pO2 ABG HCO3 ABG O2 Saturation ABG Base Excess ABG Hemoglobin Oxyhemoglobin Sodium 136 L D Potassium Chloride 97.6 L Carbon Dioxide BUN 19 H Creatinine Glucose 125 H POC Glucose Calcium AST Total Creatine Kinase Albumin Triglycerides Influenza A (Rapid) 10/25/19 10/25/19 10/26/19 05:35 05:35 04:19 WBC RBC Hgb 10.0 L Hct MCV MCH 25 L RDW 22.0 H Lymph % (Auto) [place] % (Auto) Lymph # Seg Neutrophils % Seg Neuts % (Manual) Monocytes % (Manual) Lymphocytes # (Manual) Monocytes # (Manual) POC ABG pH ABG pH POC ABG pCO2 66.1 H POC ABG pO2 75 L ABG pO2 ABG HCO3 ABG O2 Saturation ABG Base Excess ABG Hemoglobin Oxyhemoglobin Sodium 147 H D Potassium Chloride Carbon Dioxide 34 H D BUN 23 H Creatinine 0.5 L Glucose 184 H POC Glucose Calcium AST Total Creatine Kinase Albumin Triglycerides Influenza A (Rapid) 10/26/19 10/26/19 10/26/19 05:20 05:20 12:44 WBC RBC Hgb 9.5 L Hct MCV MCH 25 L RDW 22.3 H Lymph % (Auto) [place] % (Auto) Lymph # Seg Neutrophils % Seg Neuts % (Manual) Monocytes % (Manual) Lymphocytes # (Manual) Monocytes # (Manual) POC ABG pH 7.501 H ABG pH POC ABG pCO2 54.7 H POC ABG pO2 69 L ABG pO2 ABG HCO3 ABG O2 Saturation ABG Base Excess ABG Hemoglobin Oxyhemoglobin Sodium 152 H Potassium Chloride Carbon Dioxide 33 H BUN 27 H Creatinine 0.6 L Glucose 135 H POC Glucose Calcium AST Total Creatine Kinase Albumin Triglycerides Influenza A (Rapid) 10/27/19 10/27/19 10/27/19 03:30 05:40 05:40 WBC RBC 3.62 L Hgb 9.4 L Hct 29.1 L MCV MCH 26 L RDW 21.7 H Lymph % (Auto) [place] % (Auto) Lymph # Seg Neutrophils % Seg Neuts % (Manual) Monocytes % (Manual) Lymphocytes # (Manual) Monocytes # (Manual) POC ABG pH ABG pH 7.472 H POC ABG pCO2 POC ABG pO2 ABG pO2 ABG HCO3 38.2 H ABG O2 Saturation ABG Base Excess 13.3 H ABG Hemoglobin 6.5 L Oxyhemoglobin Sodium 149 H Potassium 3.3 L Chloride Carbon Dioxide 31 H BUN 25 H Creatinine 0.5 L Glucose 142 H POC Glucose Calcium 8.2 L AST Total Creatine Kinase Albumin Triglycerides Influenza A (Rapid) 10/27/19 10/28/19 10/28/19 05:40 05:19 05:56 WBC RBC Hgb Hct MCV MCH RDW Lymph % (Auto) [place] % (Auto) Lymph # Seg Neutrophils % Seg Neuts % (Manual) Monocytes % (Manual) Lymphocytes # (Manual) Monocytes # (Manual) POC ABG pH 7.489 H ABG pH POC ABG pCO2 51.0 H POC ABG pO2 71 L ABG pO2 ABG HCO3 ABG O2 Saturation ABG Base Excess ABG Hemoglobin Oxyhemoglobin Sodium 153 H Potassium Chloride Carbon Dioxide 31 H BUN Creatinine 0.4 L Glucose 111 H POC Glucose Calcium 8.1 L AST Total Creatine Kinase Albumin Triglycerides 279 H Influenza A (Rapid) 10/29/19 10/29/19 10/30/19 03:54 04:21 04:48 WBC RBC Hgb Hct MCV MCH RDW Lymph % (Auto) [place] % (Auto) Lymph # Seg Neutrophils % Seg Neuts % (Manual) Monocytes % (Manual) Lymphocytes # (Manual) Monocytes # (Manual) POC ABG pH 7.506 H 7.508 H ABG pH POC ABG pCO2 53.6 H 49.6 H POC ABG pO2 ABG pO2 ABG HCO3 ABG O2 Saturation ABG Base Excess ABG Hemoglobin Oxyhemoglobin Sodium 150 H Potassium Chloride Carbon Dioxide BUN Creatinine 0.4 L Glucose 137 H POC Glucose Calcium AST Total Creatine Kinase Albumin Triglycerides Influenza A (Rapid) 10/30/19 10/30/19 10/31/19 09:54 21:08 00:17 WBC RBC Hgb Hct MCV MCH RDW Lymph % (Auto) [place] % (Auto) Lymph # Seg Neutrophils % Seg Neuts % (Manual) Monocytes % (Manual) Lymphocytes # (Manual) Monocytes # (Manual) POC ABG pH 7.455 H ABG pH POC ABG pCO2 58.6 H POC ABG pO2 74 L ABG pO2 ABG HCO3 ABG O2 Saturation ABG Base Excess ABG Hemoglobin Oxyhemoglobin Sodium 148 H Potassium Chloride Carbon Dioxide BUN Creatinine 0.4 L Glucose 156 H POC Glucose 160 H Calcium AST Total Creatine Kinase Albumin Triglycerides Influenza A (Rapid) 10/31/19 10/31/19 10/31/19 04:42 08:02 16:24 WBC RBC Hgb Hct MCV MCH RDW Lymph % (Auto) [place] % (Auto) Lymph # Seg Neutrophils % Seg Neuts % (Manual) Monocytes % (Manual) Lymphocytes # (Manual) Monocytes # (Manual) POC ABG pH ABG pH POC ABG pCO2 62.2 H POC ABG pO2 76 L ABG pO2 ABG HCO3 ABG O2 Saturation ABG Base Excess ABG Hemoglobin Oxyhemoglobin Sodium 149 H Potassium Chloride Carbon Dioxide BUN Creatinine 0.4 L Glucose 146 H POC Glucose 143 H Calcium AST Total Creatine Kinase Albumin Triglycerides Influenza A (Rapid) 11/01/19 11/01/19 11/01/19 04:25 05:30 05:30 WBC RBC Hgb 9.7 L Hct 30.1 L MCV MCH 26 L RDW 21.6 H Lymph % (Auto) [place] % (Auto) Lymph # Seg Neutrophils % Seg Neuts % (Manual) Monocytes % (Manual) 10.0 H Lymphocytes # (Manual) Monocytes # (Manual) 0.9 H POC ABG pH ABG pH POC ABG pCO2 POC ABG pO2 ABG pO2 67.0 L ABG HCO3 38.2 H ABG O2 Saturation 94.2 L ABG Base Excess 11.8 H ABG Hemoglobin 10.7 L Oxyhemoglobin 91.6 L Sodium 147 H Potassium Chloride Carbon Dioxide 31 H BUN Creatinine 0.4 L Glucose 136 H POC Glucose Calcium AST Total Creatine Kinase Albumin Triglycerides Influenza A (Rapid) 11/01/19 11/02/19 11/02/19 10:32 22:46 23:02 WBC RBC Hgb Hct MCV MCH RDW Lymph % (Auto) [place] % (Auto) Lymph # Seg Neutrophils % Seg Neuts % (Manual) Monocytes % (Manual) Lymphocytes # (Manual) Monocytes # (Manual) POC ABG pH 7.465 H 7.522 H ABG pH POC ABG pCO2 56.8 H 50.0 H POC ABG pO2 71 L ABG pO2 ABG HCO3 ABG O2 Saturation ABG Base Excess ABG Hemoglobin Oxyhemoglobin Sodium Potassium Chloride Carbon Dioxide BUN Creatinine Glucose POC Glucose 126 H Calcium AST Total Creatine Kinase Albumin Triglycerides Influenza A (Rapid) 11/04/19 11/05/19 11/08/19 05:57 04:22 11:47 WBC RBC Hgb Hct MCV MCH RDW Lymph % (Auto) [place] % (Auto) Lymph # Seg Neutrophils % Seg Neuts % (Manual) Monocytes % (Manual) Lymphocytes # (Manual) Monocytes # (Manual) POC ABG pH ABG pH POC ABG pCO2 POC ABG pO2 ABG pO2 ABG HCO3 ABG O2 Saturation ABG Base Excess ABG Hemoglobin Oxyhemoglobin Sodium 148 H Potassium 3.1 L 3.4 L Chloride 97.4 L Carbon Dioxide 34 H 31 H BUN Creatinine 0.5 L 0.4 L Glucose 128 H 110 H POC Glucose 147 H Calcium AST Total Creatine Kinase Albumin Triglycerides Influenza A (Rapid) 11/10/19 09:50 WBC RBC Hgb Hct MCV MCH RDW Lymph % (Auto) [place] % (Auto) Lymph # Seg Neutrophils % Seg Neuts % (Manual) Monocytes % (Manual) Lymphocytes # (Manual) Monocytes # (Manual) POC ABG pH ABG pH POC ABG pCO2 POC ABG pO2 ABG pO2 57.9 L ABG HCO3 29.3 H ABG O2 Saturation 90.8 L ABG Base Excess 3.9 H ABG Hemoglobin Oxyhemoglobin 88.3 L Sodium Potassium Chloride Carbon Dioxide BUN Creatinine Glucose POC Glucose Calcium AST Total Creatine Kinase Albumin Triglycerides Influenza A (Rapid) Allied health notes reviewed: RT
[2019-11-11] MEDS: TAMSULOSIN 0.4 MG CAP PO SCH (11:22)
[2019-11-11] MEDS: PANTOPRAZOLE 40 MG TAB PO SCH (11:22)
[2019-11-11] MEDS: carvediloL 3.125 MG TAB PO SCH ×2 (11:22→21:50)
--- NOTE | 2019-11-11 16:55 | Progress Note ---
Assessment and Plan /Acute hypoxemic respiratory failure. -Respiratory/tracheal aspirate reveals Enterobacter. The patient failed BiPAP and required intubation on 10/23/2019. Patient now extubated. On Oxygen by NC 2l/min. Pulmonary following. /Sepsis. Etiology secondary to pneumonia/influenza A. - Continue antibiotics per ID. /Influenza A. Completed high dose prolonged Tamiflu course. /Bilateral pneumonia. resp culture with GNR, patient on Cefepime. /Acute on chronic diastolic heart failure. - Echocardiogram revealed The left ventricular size is mildly dilated, mild to moderate concentric LVH, est EF 40-45%, left atrium is mildly dilated, trace MR, mild TR, mild to moderate Pulmonary hypertension, RVSP is calculated at 42 mmHg. /Obesity hypoventilation syndrome/DEAN. -Outpatient evaluation for sleep apnea /Morbid obesity. BMI is 83. - Weight loss and life style modifications on discharge. /Agitation on and off, now resolved. calm today, CT head could not be done because of body habitus. /physical Debility- PT eval ongoing Hopefully dc soon. PT recommendation: acute rehab, CM notified Brief history: The patient is a 49-year-old female with morbid obesity, hypertension, lymphedema, functional quadriplegia and sleep apnea came into the emergency room with shortness of breath and hypoxia. She was started on BiPAP due to her respiratory failure. She was also found to have influenza A and was started empirically on treatment. The patient failed BiPAP and required intubation on 10/23/2019. Patient now extubated. waiting on PT clearance for discharge. Hospitalist Physical GEN: Not in acute distress, lying in bed, morbidly obese HEENT: Normocephalic, atraumatic, Neck: supple, No JVD Lungs: Clear to auscultation bilaterally, no wheeze, heart;S1 and S2 reg, no murmurs Abd:soft, non tender, non distended, normal bowel sounds Ext: No edema, no clubbing, no cyanosis Neuro: AAO X 3, no focal neurological signs, moves all ext Subjective Date of service: 11/11/19 Principal diagnosis: acute respiratory distress Interval history: Patient seen and examined. Medical records and medication list reviewed. No acute event overnight noted by the RN. Patient denies any chest pain or difficulty breathing. Patient is tolerating diet. States her dizziness improved, PT recommended acute rehab Discussed plan of care at bedside with patient. Objective - Constitutional Vitals: Vital Signs - 12hr 11/11/19 11/11/19 11/11/19 06:37 08:26 08:40 Temperature Pulse Rate 92 H Pulse Rate [ 104 H Anterior Bilateral Throughout] Respiratory Rate Respiratory 20 Rate [Anterior Bilateral Throughout] Blood Pressure O2 Sat by Pulse 97 Oximetry 11/11/19 11/11/19 12:13 13:22 Temperature 98.5 F Pulse Rate 102 H Pulse Rate [ 107 H Anterior Bilateral Throughout] Respiratory 16 Rate Respiratory 20 Rate [Anterior Bilateral Throughout] Blood Pressure 148/77 O2 Sat by Pulse 93 Oximetry - Labs CBC & Chem 7: 11/01/19 05:30 11/07/19 14:29
[2019-11-12] MEDS: HEPARIN 5,000 UNIT/1 ML VIAL SUB-Q SCH ×3 (05:04→22:09)
--- NOTE | 2019-11-12 06:38 | Progress Note ---
Assessment and Plan Acute hypoxic-hypercapnic respiratory failure,s/p MVS Bilateral alveolar infiltrates- possible heart failure-systolic Sepsis Influenza A pneumonia positive s/p anti-viral therapy Acute diastolic heart failure suspected Extreme Obesity, BMI 93.6 Probable DEAN with OHS Functional quadriplegia h/o HTN -NIPPV qhs and prn -wean supplemental oxygen fro O2 sats>90% -Continue mobility protocol, off loading for pressure ulcer prevention- high risk patient -Continue all care as documented below -Bronchodilators per protocol -Continue with VTE prophylaxis -Continue stress ulcer prophylaxis - Continue with Accuchecks with glycemic control ,avoid hypoglycemia - Continue to monitor electrolyte profile closely and replete as indicated -PT/OT, increase activity as tolerated -Weight loss and life style modifications on discharge. May need surgical bariatric intervention -Out patient evaluation for sleep apnea Discussed with RT Updated the patient at the bedside, answered all her questions Discharge planning CONDITION: FAIR PROGNOSIS: FAIR CODE STATUS: FULL CODE Subjective Date of service: 11/12/19 Principal diagnosis: acute respiratory distress Interval history: Patient is seen today for: acute hypoxic-hypercapnic respiratory failures/p MVS; influenza infection; extreme obesity with probable DEAN Seen and examined at bedside; 24hour events reviewed; nursing and respiratory care staff consulted; no adverse overnight events reported to me; Vitals, labs, medications, chart and imaging reviewed. Discussed with RT and RN Sitting comfortable in bed on 2L NC., having dinner. denies any chest pain, no shortness of breath, no fevers or chills. No diarrhea, no nausea or vomiting Objective Vital Signs - 12hr 11/11/19 11/11/19 11/11/19 21:15 21:16 21:50 Temperature Pulse Rate 104 H Pulse Rate [ 101 H Anterior Bilateral Throughout] Respiratory Rate Respiratory 20 Rate [Anterior Bilateral Throughout] Blood Pressure 146/68 O2 Sat by Pulse 95 Oximetry 11/11/19 11/11/19 11/12/19 21:53 22:00 00:20 Temperature 98.4 F Pulse Rate 109 H 90 91 H Pulse Rate [ Anterior Bilateral Throughout] Respiratory 18 25 H Rate Respiratory Rate [Anterior Bilateral Throughout] Blood Pressure O2 Sat by Pulse 97 98 Oximetry 11/12/19 04:57 Temperature 97.7 F Pulse Rate 88 Pulse Rate [ Anterior Bilateral Throughout] Respiratory 16 Rate Respiratory Rate [Anterior Bilateral Throughout] Blood Pressure 130/70 O2 Sat by Pulse 99 Oximetry Constitutional: no acute distress, alert, other (on oxygen at 2L NC) Eyes: non-icteric ENT: oropharynx moist Neck: supple, no lymphadenopathy, no JVD, other (short neck, large circunference) Effort: normal Ascultation: Bilateral: diminished breath sounds, rhonchi Percussion: Bilateral: not dull Cardiovascular: regular rate and rhythm, other (S1,S2) Gastrointestinal: normoactive bowel sounds, soft, non-tender, non-distended Integumentary: normal Extremities: no cyanosis, no edema, pink and warm, pulses normal Neurologic: normal mental status, non-focal exam, pupils equal and round, CN II- XII normal Psychiatric: mood appropriate, affect normal CBC and BMP: 11/01/19 05:30 11/07/19 14:29 ABG, PT/INR, D-dimer: ABG POC ABG pH 7.522 (7.35-7.45) H 11/02/19 23:02 ABG pH 7.416 pH Units (7.350-7.450) 11/10/19 09:50 POC ABG pCO2 50.0 (35-45) H 11/02/19 23:02 ABG pCO2 46.6 mm Hg 11/10/19 09:50 POC ABG pO2 71 (80-105) L 11/02/19 23:02 ABG pO2 57.9 mm Hg (80.0-90.0) L 11/10/19 09:50 POC ABG HCO3 41.0 (22-26 mml/L) 11/02/19 23:02 POC ABG Total CO2 42 (23-27mmol/L) 11/02/19 23:02 POC ABG O2 Sat 95 11/02/19 23:02 ABG O2 Saturation 90.8 % (95.0-99.0) L 11/10/19 09:50 Abnormal lab findings: Abnormal Labs 10/17/19 10/17/19 10/17/19 20:57 20:57 Unknown WBC 4.0 L RBC Hgb Hct MCV 78 L MCH 25 L RDW 24.7 H Lymph % (Auto) [place] % (Auto) Lymph # Seg Neutrophils % Seg Neuts % (Manual) 77.0 H Monocytes % (Manual) 9.0 H Lymphocytes # (Manual) 0.6 L Monocytes # (Manual) POC ABG pH ABG pH POC ABG pCO2 POC ABG pO2 ABG pO2 ABG HCO3 ABG O2 Saturation ABG Base Excess ABG Hemoglobin Oxyhemoglobin Sodium Potassium 3.5 L Chloride Carbon Dioxide BUN Creatinine 0.6 L Glucose 147 H POC Glucose Calcium 7.9 L AST 57 H Total Creatine Kinase 857 H Albumin 3.0 L Triglycerides Influenza A (Rapid) Positive A 10/18/19 10/18/19 10/18/19 05:21 05:21 09:19 WBC 3.3 L RBC Hgb Hct MCV MCH 25 L RDW 24.3 H Lymph % (Auto) 12.5 L [place] % (Auto) 7.9 H Lymph # 0.4 L Seg Neutrophils % 78.6 H Seg Neuts % (Manual) Monocytes % (Manual) Lymphocytes # (Manual) Monocytes # (Manual) POC ABG pH ABG pH POC ABG pCO2 POC ABG pO2 ABG pO2 131.3 H ABG HCO3 30.2 H ABG O2 Saturation ABG Base Excess 4.5 H ABG Hemoglobin 10.7 L Oxyhemoglobin Sodium Potassium Chloride Carbon Dioxide BUN Creatinine Glucose 167 H POC Glucose Calcium 8.3 L AST Total Creatine Kinase Albumin Triglycerides Influenza A (Rapid) 10/18/19 10/18/19 10/19/19 11:28 18:27 06:39 WBC RBC Hgb Hct MCV MCH RDW Lymph % (Auto) [place] % (Auto) Lymph # Seg Neutrophils % Seg Neuts % (Manual) Monocytes % (Manual) Lymphocytes # (Manual) Monocytes # (Manual) POC ABG pH 7.461 H 7.487 H ABG pH POC ABG pCO2 53.4 H 52.8 H 51.7 H POC ABG pO2 70 L 71 L ABG pO2 ABG HCO3 ABG O2 Saturation ABG Base Excess ABG Hemoglobin Oxyhemoglobin Sodium Potassium Chloride Carbon Dioxide BUN Creatinine Glucose POC Glucose Calcium AST Total Creatine Kinase Albumin Triglycerides Influenza A (Rapid) 10/19/19 10/20/19 10/20/19 23:25 05:31 09:08 WBC RBC Hgb Hct MCV MCH RDW Lymph % (Auto) [place] % (Auto) Lymph # Seg Neutrophils % Seg Neuts % (Manual) Monocytes % (Manual) Lymphocytes # (Manual) Monocytes # (Manual) POC ABG pH ABG pH POC ABG pCO2 POC ABG pO2 ABG pO2 ABG HCO3 ABG O2 Saturation ABG Base Excess ABG Hemoglobin Oxyhemoglobin Sodium Potassium Chloride Carbon Dioxide BUN Creatinine Glucose POC Glucose 203 H 144 H 163 H Calcium AST Total Creatine Kinase Albumin Triglycerides Influenza A (Rapid) 10/20/19 10/20/19 10/20/19 10:25 13:22 14:51 WBC RBC Hgb Hct MCV MCH RDW Lymph % (Auto) [place] % (Auto) Lymph # Seg Neutrophils % Seg Neuts % (Manual) Monocytes % (Manual) Lymphocytes # (Manual) Monocytes # (Manual) POC ABG pH 7.632 H ABG pH POC ABG pCO2 POC ABG pO2 74 L ABG pO2 ABG HCO3 ABG O2 Saturation ABG Base Excess ABG Hemoglobin Oxyhemoglobin Sodium 147 H Potassium Chloride Carbon Dioxide 31 H BUN Creatinine 0.5 L Glucose 154 H POC Glucose 178 H Calcium 8.2 L AST Total Creatine Kinase Albumin Triglycerides Influenza A (Rapid) 10/20/19 10/20/19 10/20/19 14:51 17:16 21:30 WBC 11.2 H RBC Hgb Hct MCV 78 L MCH 25 L RDW 23.9 H Lymph % (Auto) [place] % (Auto) Lymph # Seg Neutrophils % Seg Neuts % (Manual) Monocytes % (Manual) Lymphocytes # (Manual) Monocytes # (Manual) POC ABG pH ABG pH POC ABG pCO2 POC ABG pO2 ABG pO2 ABG HCO3 ABG O2 Saturation ABG Base Excess ABG Hemoglobin Oxyhemoglobin Sodium Potassium Chloride Carbon Dioxide BUN Creatinine Glucose POC Glucose 143 H 152 H Calcium AST Total Creatine Kinase Albumin Triglycerides Influenza A (Rapid) 10/20/19 10/21/19 10/21/19 22:52 05:55 08:27 WBC RBC Hgb Hct MCV MCH RDW Lymph % (Auto) [place] % (Auto) Lymph # Seg Neutrophils % Seg Neuts % (Manual) Monocytes % (Manual) Lymphocytes # (Manual) Monocytes # (Manual) POC ABG pH ABG pH POC ABG pCO2 POC ABG pO2 ABG pO2 ABG HCO3 ABG O2 Saturation ABG Base Excess ABG Hemoglobin Oxyhemoglobin Sodium Potassium Chloride Carbon Dioxide BUN Creatinine Glucose POC Glucose 179 H 115 H 131 H Calcium AST Total Creatine Kinase Albumin Triglycerides Influenza A (Rapid) 10/21/19 10/21/19 10/21/19 11:52 16:23 23:38 WBC RBC Hgb Hct MCV MCH RDW Lymph % (Auto) [place] % (Auto) Lymph # Seg Neutrophils % Seg Neuts % (Manual) Monocytes % (Manual) Lymphocytes # (Manual) Monocytes # (Manual) POC ABG pH ABG pH POC ABG pCO2 POC ABG pO2 ABG pO2 ABG HCO3 ABG O2 Saturation ABG Base Excess ABG Hemoglobin Oxyhemoglobin Sodium Potassium Chloride Carbon Dioxide BUN Creatinine Glucose POC Glucose 122 H 120 H 115 H Calcium AST Total Creatine Kinase Albumin Triglycerides Influenza A (Rapid) 10/22/19 10/22/19 10/22/19 00:35 05:19 06:10 WBC RBC Hgb Hct MCV MCH 25 L RDW 22.8 H Lymph % (Auto) [place] % (Auto) Lymph # Seg Neutrophils % Seg Neuts % (Manual) Monocytes % (Manual) Lymphocytes # (Manual) Monocytes # (Manual) POC ABG pH ABG pH 7.520 H POC ABG pCO2 POC ABG pO2 ABG pO2 64.4 L ABG HCO3 36.8 H ABG O2 Saturation ABG Base Excess 12.6 H ABG Hemoglobin 10.4 L Oxyhemoglobin Sodium Potassium Chloride Carbon Dioxide BUN Creatinine Glucose POC Glucose 108 H Calcium AST Total Creatine Kinase Albumin Triglycerides Influenza A (Rapid) 10/22/19 10/24/19 10/25/19 15:40 05:49 04:20 WBC RBC Hgb Hct MCV MCH RDW Lymph % (Auto) [place] % (Auto) Lymph # Seg Neutrophils % Seg Neuts % (Manual) Monocytes % (Manual) Lymphocytes # (Manual) Monocytes # (Manual) POC ABG pH 7.454 H ABG pH POC ABG pCO2 64.1 H 63.5 H POC ABG pO2 73 L ABG pO2 ABG HCO3 ABG O2 Saturation ABG Base Excess ABG Hemoglobin Oxyhemoglobin Sodium 136 L D Potassium Chloride 97.6 L Carbon Dioxide BUN 19 H Creatinine Glucose 125 H POC Glucose Calcium AST Total Creatine Kinase Albumin Triglycerides Influenza A (Rapid) 10/25/19 10/25/19 10/26/19 05:35 05:35 04:19 WBC RBC Hgb 10.0 L Hct MCV MCH 25 L RDW 22.0 H Lymph % (Auto) [place] % (Auto) Lymph # Seg Neutrophils % Seg Neuts % (Manual) Monocytes % (Manual) Lymphocytes # (Manual) Monocytes # (Manual) POC ABG pH ABG pH POC ABG pCO2 66.1 H POC ABG pO2 75 L ABG pO2 ABG HCO3 ABG O2 Saturation ABG Base Excess ABG Hemoglobin Oxyhemoglobin Sodium 147 H D Potassium Chloride Carbon Dioxide 34 H D BUN 23 H Creatinine 0.5 L Glucose 184 H POC Glucose Calcium AST Total Creatine Kinase Albumin Triglycerides Influenza A (Rapid) 10/26/19 10/26/19 10/26/19 05:20 05:20 12:44 WBC RBC Hgb 9.5 L Hct MCV MCH 25 L RDW 22.3 H Lymph % (Auto) [place] % (Auto) Lymph # Seg Neutrophils % Seg Neuts % (Manual) Monocytes % (Manual) Lymphocytes # (Manual) Monocytes # (Manual) POC ABG pH 7.501 H ABG pH POC ABG pCO2 54.7 H POC ABG pO2 69 L ABG pO2 ABG HCO3 ABG O2 Saturation ABG Base Excess ABG Hemoglobin Oxyhemoglobin Sodium 152 H Potassium Chloride Carbon Dioxide 33 H BUN 27 H Creatinine 0.6 L Glucose 135 H POC Glucose Calcium AST Total Creatine Kinase Albumin Triglycerides Influenza A (Rapid) 10/27/19 10/27/19 10/27/19 03:30 05:40 05:40 WBC RBC 3.62 L Hgb 9.4 L Hct 29.1 L MCV MCH 26 L RDW 21.7 H Lymph % (Auto) [place] % (Auto) Lymph # Seg Neutrophils % Seg Neuts % (Manual) Monocytes % (Manual) Lymphocytes # (Manual) Monocytes # (Manual) POC ABG pH ABG pH 7.472 H POC ABG pCO2 POC ABG pO2 ABG pO2 ABG HCO3 38.2 H ABG O2 Saturation ABG Base Excess 13.3 H ABG Hemoglobin 6.5 L Oxyhemoglobin Sodium 149 H Potassium 3.3 L Chloride Carbon Dioxide 31 H BUN 25 H Creatinine 0.5 L Glucose 142 H POC Glucose Calcium 8.2 L AST Total Creatine Kinase Albumin Triglycerides Influenza A (Rapid) 10/27/19 10/28/19 10/28/19 05:40 05:19 05:56 WBC RBC Hgb Hct MCV MCH RDW Lymph % (Auto) [place] % (Auto) Lymph # Seg Neutrophils % Seg Neuts % (Manual) Monocytes % (Manual) Lymphocytes # (Manual) Monocytes # (Manual) POC ABG pH 7.489 H ABG pH POC ABG pCO2 51.0 H POC ABG pO2 71 L ABG pO2 ABG HCO3 ABG O2 Saturation ABG Base Excess ABG Hemoglobin Oxyhemoglobin Sodium 153 H Potassium Chloride Carbon Dioxide 31 H BUN Creatinine 0.4 L Glucose 111 H POC Glucose Calcium 8.1 L AST Total Creatine Kinase Albumin Triglycerides 279 H Influenza A (Rapid) 10/29/19 10/29/19 10/30/19 03:54 04:21 04:48 WBC RBC Hgb Hct MCV MCH RDW Lymph % (Auto) [place] % (Auto) Lymph # Seg Neutrophils % Seg Neuts % (Manual) Monocytes % (Manual) Lymphocytes # (Manual) Monocytes # (Manual) POC ABG pH 7.506 H 7.508 H ABG pH POC ABG pCO2 53.6 H 49.6 H POC ABG pO2 ABG pO2 ABG HCO3 ABG O2 Saturation ABG Base Excess ABG Hemoglobin Oxyhemoglobin Sodium 150 H Potassium Chloride Carbon Dioxide BUN Creatinine 0.4 L Glucose 137 H POC Glucose Calcium AST Total Creatine Kinase Albumin Triglycerides Influenza A (Rapid) 10/30/19 10/30/19 10/31/19 09:54 21:08 00:17 WBC RBC Hgb Hct MCV MCH RDW Lymph % (Auto) [place] % (Auto) Lymph # Seg Neutrophils % Seg Neuts % (Manual) Monocytes % (Manual) Lymphocytes # (Manual) Monocytes # (Manual) POC ABG pH 7.455 H ABG pH POC ABG pCO2 58.6 H POC ABG pO2 74 L ABG pO2 ABG HCO3 ABG O2 Saturation ABG Base Excess ABG Hemoglobin Oxyhemoglobin Sodium 148 H Potassium Chloride Carbon Dioxide BUN Creatinine 0.4 L Glucose 156 H POC Glucose 160 H Calcium AST Total Creatine Kinase Albumin Triglycerides Influenza A (Rapid) 10/31/19 10/31/19 10/31/19 04:42 08:02 16:24 WBC RBC Hgb Hct MCV MCH RDW Lymph % (Auto) [place] % (Auto) Lymph # Seg Neutrophils % Seg Neuts % (Manual) Monocytes % (Manual) Lymphocytes # (Manual) Monocytes # (Manual) POC ABG pH ABG pH POC ABG pCO2 62.2 H POC ABG pO2 76 L ABG pO2 ABG HCO3 ABG O2 Saturation ABG Base Excess ABG Hemoglobin Oxyhemoglobin Sodium 149 H Potassium Chloride Carbon Dioxide BUN Creatinine 0.4 L Glucose 146 H POC Glucose 143 H Calcium AST Total Creatine Kinase Albumin Triglycerides Influenza A (Rapid) 11/01/19 11/01/19 11/01/19 04:25 05:30 05:30 WBC RBC Hgb 9.7 L Hct 30.1 L MCV MCH 26 L RDW 21.6 H Lymph % (Auto) [place] % (Auto) Lymph # Seg Neutrophils % Seg Neuts % (Manual) Monocytes % (Manual) 10.0 H Lymphocytes # (Manual) Monocytes # (Manual) 0.9 H POC ABG pH ABG pH POC ABG pCO2 POC ABG pO2 ABG pO2 67.0 L ABG HCO3 38.2 H ABG O2 Saturation 94.2 L ABG Base Excess 11.8 H ABG Hemoglobin 10.7 L Oxyhemoglobin 91.6 L Sodium 147 H Potassium Chloride Carbon Dioxide 31 H BUN Creatinine 0.4 L Glucose 136 H POC Glucose Calcium AST Total Creatine Kinase Albumin Triglycerides Influenza A (Rapid) 11/01/19 11/02/19 11/02/19 10:32 22:46 23:02 WBC RBC Hgb Hct MCV MCH RDW Lymph % (Auto) [place] % (Auto) Lymph # Seg Neutrophils % Seg Neuts % (Manual) Monocytes % (Manual) Lymphocytes # (Manual) Monocytes # (Manual) POC ABG pH 7.465 H 7.522 H ABG pH POC ABG pCO2 56.8 H 50.0 H POC ABG pO2 71 L ABG pO2 ABG HCO3 ABG O2 Saturation ABG Base Excess ABG Hemoglobin Oxyhemoglobin Sodium Potassium Chloride Carbon Dioxide BUN Creatinine Glucose POC Glucose 126 H Calcium AST Total Creatine Kinase Albumin Triglycerides Influenza A (Rapid) 11/04/19 11/05/19 11/08/19 05:57 04:22 11:47 WBC RBC Hgb Hct MCV MCH RDW Lymph % (Auto) [place] % (Auto) Lymph # Seg Neutrophils % Seg Neuts % (Manual) Monocytes % (Manual) Lymphocytes # (Manual) Monocytes # (Manual) POC ABG pH ABG pH POC ABG pCO2 POC ABG pO2 ABG pO2 ABG HCO3 ABG O2 Saturation ABG Base Excess ABG Hemoglobin Oxyhemoglobin Sodium 148 H Potassium 3.1 L 3.4 L Chloride 97.4 L Carbon Dioxide 34 H 31 H BUN Creatinine 0.5 L 0.4 L Glucose 128 H 110 H POC Glucose 147 H Calcium AST Total Creatine Kinase Albumin Triglycerides Influenza A (Rapid) 11/10/19 09:50 WBC RBC Hgb Hct MCV MCH RDW Lymph % (Auto) [place] % (Auto) Lymph # Seg Neutrophils % Seg Neuts % (Manual) Monocytes % (Manual) Lymphocytes # (Manual) Monocytes # (Manual) POC ABG pH ABG pH POC ABG pCO2 POC ABG pO2 ABG pO2 57.9 L ABG HCO3 29.3 H ABG O2 Saturation 90.8 L ABG Base Excess 3.9 H ABG Hemoglobin Oxyhemoglobin 88.3 L Sodium Potassium Chloride Carbon Dioxide BUN Creatinine Glucose POC Glucose Calcium AST Total Creatine Kinase Albumin Triglycerides Influenza A (Rapid) Allied health notes reviewed: RT
[2019-11-12] MEDS: IPRATROPIUM/ALBUTEROL SULFATE 3 ML AMPUL.NEB IH SCH ×3 (08:21→19:49)
--- NOTE | 2019-11-12 08:31 | XRay Report ---
CHEST 1 VIEW INDICATION: Follow-up for pulmonary infiltrates. COMPARISON: 11/08/2019 FINDINGS: Support devices: None. Heart: Within normal limits. Lungs/Pleura: No change in bilateral perihilar interstitial and streaky lung opacities. Additional findings: None. IMPRESSION: 1. No change. 2. Bilateral interstitial lung disease of uncertain etiology. Signer Name: Rolf Ramos MD Signed: 11/12/2019 8:27 AM Workstation Name: [id number]
[2019-11-12 10:36] LABS: Myeloperoxidase Antibody <1.0 AI (<1.0)
[2019-11-12] MEDS: TAMSULOSIN 0.4 MG CAP PO SCH (11:02)
[2019-11-12] MEDS: PANTOPRAZOLE 40 MG TAB PO SCH (11:02)
[2019-11-12] MEDS: carvediloL 3.125 MG TAB PO SCH ×2 (15:30→22:08)
--- NOTE | 2019-11-12 15:45 | Progress Note ---
Assessment and Plan /Acute hypoxemic respiratory failure. -Respiratory/tracheal aspirate reveals Enterobacter. The patient failed BiPAP and required intubation on 10/23/2019. Patient now extubated. On Oxygen by NC 2l/min. Pulmonary following. /Sepsis. Etiology secondary to pneumonia/influenza A. - Completed antibiotics per ID. /Influenza A. Completed high dose prolonged Tamiflu course. /Bilateral pneumonia. resp culture with GNR, patient treated with abx /Acute on chronic diastolic heart failure. - Echocardiogram revealed The left ventricular size is mildly dilated, mild to moderate concentric LVH, est EF 40-45%, left atrium is mildly dilated, trace MR, mild TR, mild to moderate Pulmonary hypertension, RVSP is calculated at 42 mmHg. /Obesity hypoventilation syndrome/DEAN. -Outpatient evaluation for sleep apnea /Morbid obesity. BMI is 83. - Weight loss and life style modifications on discharge. /Agitation on and off, now resolved. calm today, CT head could not be done because of body habitus. /physical Debility- PT eval ongoing Hopefully dc soon. PT recommendation: acute rehab, CM notified d/c pending on placement vs PT clearance Brief history: The patient is a 49-year-old female with morbid obesity, hypertension, lymphedema, functional quadriplegia and sleep apnea came into the emergency room with shortness of breath and hypoxia. She was started on BiPAP due to her respiratory failure. She was also found to have influenza A and was started empirically on treatment. The patient failed BiPAP and required intubation on 10/23/2019. Patient now extubated. waiting on PT clearance for discharge. Hospitalist Physical GEN: Not in acute distress, lying in bed, morbidly obese HEENT: Normocephalic, atraumatic, Neck: supple, No JVD Lungs: Clear to auscultation bilaterally, no wheeze, heart;S1 and S2 reg, no murmurs Abd:soft, non tender, non distended, normal bowel sounds Ext: No edema, no clubbing, no cyanosis Neuro: AAO X 3, no focal neurological signs, moves all ext Subjective Date of service: 11/12/19 Principal diagnosis: acute respiratory distress Interval history: Patient seen and examined. Medical records and medication list reviewed. No acute event overnight noted by the RN. Patient denies any chest pain or difficulty breathing. Patient is tolerating diet. States her dizziness improved, PT recommended acute rehab Discussed plan of care at bedside with patient. discharge pending on placement or clearance from PT Objective - Constitutional Vitals: Vital Signs - 12hr 11/12/19 11/12/19 11/12/19 04:57 08:21 12:50 Temperature 97.7 F 98.6 F Pulse Rate 88 97 H Pulse Rate [ 110 H Anterior Bilateral Throughout] Respiratory 16 18 Rate Respiratory 20 Rate [Anterior Bilateral Throughout] Blood Pressure 130/70 136/68 O2 Sat by Pulse 99 95 94 Oximetry 11/12/19 15:05 Temperature Pulse Rate Pulse Rate [ 104 H Anterior Bilateral Throughout] Respiratory Rate Respiratory 20 Rate [Anterior Bilateral Throughout] Blood Pressure O2 Sat by Pulse Oximetry - Labs CBC & Chem 7: 11/01/19 05:30 11/07/19 14:29
[2019-11-13] MEDS: HEPARIN 5,000 UNIT/1 ML VIAL SUB-Q SCH ×3 (05:52→23:15)
[2019-11-13] MEDS: IPRATROPIUM/ALBUTEROL SULFATE 3 ML AMPUL.NEB IH SCH ×3 (07:46→19:49)
[2019-11-13] MEDS: carvediloL 3.125 MG TAB PO SCH ×2 (11:03→23:17)
[2019-11-13] MEDS: PANTOPRAZOLE 40 MG TAB PO SCH (11:04)
[2019-11-13] MEDS: TAMSULOSIN 0.4 MG CAP PO SCH (11:04)
--- NOTE | 2019-11-13 12:24 | Progress Note ---
Assessment and Plan Acute hypoxic-hypercapnic respiratory failure,s/p MVS Bilateral alveolar infiltrates- possible heart failure-systolic Sepsis Influenza A pneumonia positive s/p anti-viral therapy Acute diastolic heart failure suspected Extreme Obesity, BMI 93.6 Probable DEAN with OHS Functional quadriplegia h/o HTN -NIPPV qhs and prn -wean supplemental oxygen fro O2 sats>90% -Continue mobility protocol, off loading for pressure ulcer prevention- high risk patient -Continue all care as documented below -Bronchodilators per protocol -Continue with VTE prophylaxis -Continue stress ulcer prophylaxis - Continue with Accuchecks with glycemic control ,avoid hypoglycemia - Continue to monitor electrolyte profile closely and replete as indicated -PT/OT, increase activity as tolerated -Weight loss and life style modifications on discharge. May need surgical bariatric intervention -Out patient evaluation for sleep apnea Discussed with RT Updated the patient at the bedside, answered all her questions Discharge planning CONDITION: FAIR PROGNOSIS: FAIR CODE STATUS: FULL CODE Subjective Date of service: 11/13/19 Principal diagnosis: acute respiratory distress Interval history: Patient is seen today for: acute hypoxic-hypercapnic respiratory failures/p MVS; influenza infection; extreme obesity with probable DEAN Seen and examined at bedside; 24hour events reviewed; nursing and respiratory care staff consulted; no adverse overnight events reported to me; Vitals, labs, medications, chart and imaging reviewed. Discussed with RT and RN Sitting comfortable in bed on 2L NC., having dinner. denies any chest pain, no shortness of breath, no fevers or chills. No diarrhea, no nausea or vomiting Objective Vital Signs - 12hr 11/13/19 11/13/19 11/13/19 03:00 04:53 07:46 Temperature 97.5 F L Pulse Rate 92 H 83 Pulse Rate [ 91 H Anterior Bilateral Throughout] Respiratory 20 22 Rate Respiratory 20 Rate [Anterior Bilateral Throughout] Blood Pressure 135/64 O2 Sat by Pulse 98 98 94 Oximetry Constitutional: no acute distress, alert, other (on oxygen at 2L NC) Eyes: non-icteric ENT: oropharynx moist Neck: supple, no lymphadenopathy, no JVD, other (short neck, large circunference) Effort: normal Ascultation: Bilateral: diminished breath sounds, rhonchi Percussion: Bilateral: not dull Cardiovascular: regular rate and rhythm, other (S1,S2) Gastrointestinal: normoactive bowel sounds, soft, non-tender, non-distended Integumentary: normal Extremities: no cyanosis, no edema, pink and warm, pulses normal Neurologic: normal mental status, non-focal exam, pupils equal and round, CN II- XII normal Psychiatric: mood appropriate, affect normal CBC and BMP: 11/01/19 05:30 11/07/19 14:29 ABG, PT/INR, D-dimer: ABG POC ABG pH 7.522 (7.35-7.45) H 11/02/19 23:02 ABG pH 7.416 pH Units (7.350-7.450) 11/10/19 09:50 POC ABG pCO2 50.0 (35-45) H 11/02/19 23:02 ABG pCO2 46.6 mm Hg 11/10/19 09:50 POC ABG pO2 71 (80-105) L 11/02/19 23:02 ABG pO2 57.9 mm Hg (80.0-90.0) L 11/10/19 09:50 POC ABG HCO3 41.0 (22-26 mml/L) 11/02/19 23:02 POC ABG Total CO2 42 (23-27mmol/L) 11/02/19 23:02 POC ABG O2 Sat 95 11/02/19 23:02 ABG O2 Saturation 90.8 % (95.0-99.0) L 11/10/19 09:50 Abnormal lab findings: Abnormal Labs 10/17/19 10/17/19 10/17/19 20:57 20:57 Unknown WBC 4.0 L RBC Hgb Hct MCV 78 L MCH 25 L RDW 24.7 H Lymph % (Auto) [place] % (Auto) Lymph # Seg Neutrophils % Seg Neuts % (Manual) 77.0 H Monocytes % (Manual) 9.0 H Lymphocytes # (Manual) 0.6 L Monocytes # (Manual) POC ABG pH ABG pH POC ABG pCO2 POC ABG pO2 ABG pO2 ABG HCO3 ABG O2 Saturation ABG Base Excess ABG Hemoglobin Oxyhemoglobin Sodium Potassium 3.5 L Chloride Carbon Dioxide BUN Creatinine 0.6 L Glucose 147 H POC Glucose Calcium 7.9 L AST 57 H Total Creatine Kinase 857 H Albumin 3.0 L Triglycerides Influenza A (Rapid) Positive A 10/18/19 10/18/19 10/18/19 05:21 05:21 09:19 WBC 3.3 L RBC Hgb Hct MCV MCH 25 L RDW 24.3 H Lymph % (Auto) 12.5 L [place] % (Auto) 7.9 H Lymph # 0.4 L Seg Neutrophils % 78.6 H Seg Neuts % (Manual) Monocytes % (Manual) Lymphocytes # (Manual) Monocytes # (Manual) POC ABG pH ABG pH POC ABG pCO2 POC ABG pO2 ABG pO2 131.3 H ABG HCO3 30.2 H ABG O2 Saturation ABG Base Excess 4.5 H ABG Hemoglobin 10.7 L Oxyhemoglobin Sodium Potassium Chloride Carbon Dioxide BUN Creatinine Glucose 167 H POC Glucose Calcium 8.3 L AST Total Creatine Kinase Albumin Triglycerides Influenza A (Rapid) 10/18/19 10/18/19 10/19/19 11:28 18:27 06:39 WBC RBC Hgb Hct MCV MCH RDW Lymph % (Auto) [place] % (Auto) Lymph # Seg Neutrophils % Seg Neuts % (Manual) Monocytes % (Manual) Lymphocytes # (Manual) Monocytes # (Manual) POC ABG pH 7.461 H 7.487 H ABG pH POC ABG pCO2 53.4 H 52.8 H 51.7 H POC ABG pO2 70 L 71 L ABG pO2 ABG HCO3 ABG O2 Saturation ABG Base Excess ABG Hemoglobin Oxyhemoglobin Sodium Potassium Chloride Carbon Dioxide BUN Creatinine Glucose POC Glucose Calcium AST Total Creatine Kinase Albumin Triglycerides Influenza A (Rapid) 10/19/19 10/20/19 10/20/19 23:25 05:31 09:08 WBC RBC Hgb Hct MCV MCH RDW Lymph % (Auto) [place] % (Auto) Lymph # Seg Neutrophils % Seg Neuts % (Manual) Monocytes % (Manual) Lymphocytes # (Manual) Monocytes # (Manual) POC ABG pH ABG pH POC ABG pCO2 POC ABG pO2 ABG pO2 ABG HCO3 ABG O2 Saturation ABG Base Excess ABG Hemoglobin Oxyhemoglobin Sodium Potassium Chloride Carbon Dioxide BUN Creatinine Glucose POC Glucose 203 H 144 H 163 H Calcium AST Total Creatine Kinase Albumin Triglycerides Influenza A (Rapid) 10/20/19 10/20/19 10/20/19 10:25 13:22 14:51 WBC RBC Hgb Hct MCV MCH RDW Lymph % (Auto) [place] % (Auto) Lymph # Seg Neutrophils % Seg Neuts % (Manual) Monocytes % (Manual) Lymphocytes # (Manual) Monocytes # (Manual) POC ABG pH 7.632 H ABG pH POC ABG pCO2 POC ABG pO2 74 L ABG pO2 ABG HCO3 ABG O2 Saturation ABG Base Excess ABG Hemoglobin Oxyhemoglobin Sodium 147 H Potassium Chloride Carbon Dioxide 31 H BUN Creatinine 0.5 L Glucose 154 H POC Glucose 178 H Calcium 8.2 L AST Total Creatine Kinase Albumin Triglycerides Influenza A (Rapid) 10/20/19 10/20/19 10/20/19 14:51 17:16 21:30 WBC 11.2 H RBC Hgb Hct MCV 78 L MCH 25 L RDW 23.9 H Lymph % (Auto) [place] % (Auto) Lymph # Seg Neutrophils % Seg Neuts % (Manual) Monocytes % (Manual) Lymphocytes # (Manual) Monocytes # (Manual) POC ABG pH ABG pH POC ABG pCO2 POC ABG pO2 ABG pO2 ABG HCO3 ABG O2 Saturation ABG Base Excess ABG Hemoglobin Oxyhemoglobin Sodium Potassium Chloride Carbon Dioxide BUN Creatinine Glucose POC Glucose 143 H 152 H Calcium AST Total Creatine Kinase Albumin Triglycerides Influenza A (Rapid) 10/20/19 10/21/19 10/21/19 22:52 05:55 08:27 WBC RBC Hgb Hct MCV MCH RDW Lymph % (Auto) [place] % (Auto) Lymph # Seg Neutrophils % Seg Neuts % (Manual) Monocytes % (Manual) Lymphocytes # (Manual) Monocytes # (Manual) POC ABG pH ABG pH POC ABG pCO2 POC ABG pO2 ABG pO2 ABG HCO3 ABG O2 Saturation ABG Base Excess ABG Hemoglobin Oxyhemoglobin Sodium Potassium Chloride Carbon Dioxide BUN Creatinine Glucose POC Glucose 179 H 115 H 131 H Calcium AST Total Creatine Kinase Albumin Triglycerides Influenza A (Rapid) 10/21/19 10/21/19 10/21/19 11:52 16:23 23:38 WBC RBC Hgb Hct MCV MCH RDW Lymph % (Auto) [place] % (Auto) Lymph # Seg Neutrophils % Seg Neuts % (Manual) Monocytes % (Manual) Lymphocytes # (Manual) Monocytes # (Manual) POC ABG pH ABG pH POC ABG pCO2 POC ABG pO2 ABG pO2 ABG HCO3 ABG O2 Saturation ABG Base Excess ABG Hemoglobin Oxyhemoglobin Sodium Potassium Chloride Carbon Dioxide BUN Creatinine Glucose POC Glucose 122 H 120 H 115 H Calcium AST Total Creatine Kinase Albumin Triglycerides Influenza A (Rapid) 10/22/19 10/22/19 10/22/19 00:35 05:19 06:10 WBC RBC Hgb Hct MCV MCH 25 L RDW 22.8 H Lymph % (Auto) [place] % (Auto) Lymph # Seg Neutrophils % Seg Neuts % (Manual) Monocytes % (Manual) Lymphocytes # (Manual) Monocytes # (Manual) POC ABG pH ABG pH 7.520 H POC ABG pCO2 POC ABG pO2 ABG pO2 64.4 L ABG HCO3 36.8 H ABG O2 Saturation ABG Base Excess 12.6 H ABG Hemoglobin 10.4 L Oxyhemoglobin Sodium Potassium Chloride Carbon Dioxide BUN Creatinine Glucose POC Glucose 108 H Calcium AST Total Creatine Kinase Albumin Triglycerides Influenza A (Rapid) 10/22/19 10/24/19 10/25/19 15:40 05:49 04:20 WBC RBC Hgb Hct MCV MCH RDW Lymph % (Auto) [place] % (Auto) Lymph # Seg Neutrophils % Seg Neuts % (Manual) Monocytes % (Manual) Lymphocytes # (Manual) Monocytes # (Manual) POC ABG pH 7.454 H ABG pH POC ABG pCO2 64.1 H 63.5 H POC ABG pO2 73 L ABG pO2 ABG HCO3 ABG O2 Saturation ABG Base Excess ABG Hemoglobin Oxyhemoglobin Sodium 136 L D Potassium Chloride 97.6 L Carbon Dioxide BUN 19 H Creatinine Glucose 125 H POC Glucose Calcium AST Total Creatine Kinase Albumin Triglycerides Influenza A (Rapid) 10/25/19 10/25/19 10/26/19 05:35 05:35 04:19 WBC RBC Hgb 10.0 L Hct MCV MCH 25 L RDW 22.0 H Lymph % (Auto) [place] % (Auto) Lymph # Seg Neutrophils % Seg Neuts % (Manual) Monocytes % (Manual) Lymphocytes # (Manual) Monocytes # (Manual) POC ABG pH ABG pH POC ABG pCO2 66.1 H POC ABG pO2 75 L ABG pO2 ABG HCO3 ABG O2 Saturation ABG Base Excess ABG Hemoglobin Oxyhemoglobin Sodium 147 H D Potassium Chloride Carbon Dioxide 34 H D BUN 23 H Creatinine 0.5 L Glucose 184 H POC Glucose Calcium AST Total Creatine Kinase Albumin Triglycerides Influenza A (Rapid) 10/26/19 10/26/19 10/26/19 05:20 05:20 12:44 WBC RBC Hgb 9.5 L Hct MCV MCH 25 L RDW 22.3 H Lymph % (Auto) [place] % (Auto) Lymph # Seg Neutrophils % Seg Neuts % (Manual) Monocytes % (Manual) Lymphocytes # (Manual) Monocytes # (Manual) POC ABG pH 7.501 H ABG pH POC ABG pCO2 54.7 H POC ABG pO2 69 L ABG pO2 ABG HCO3 ABG O2 Saturation ABG Base Excess ABG Hemoglobin Oxyhemoglobin Sodium 152 H Potassium Chloride Carbon Dioxide 33 H BUN 27 H Creatinine 0.6 L Glucose 135 H POC Glucose Calcium AST Total Creatine Kinase Albumin Triglycerides Influenza A (Rapid) 10/27/19 10/27/19 10/27/19 03:30 05:40 05:40 WBC RBC 3.62 L Hgb 9.4 L Hct 29.1 L MCV MCH 26 L RDW 21.7 H Lymph % (Auto) [place] % (Auto) Lymph # Seg Neutrophils % Seg Neuts % (Manual) Monocytes % (Manual) Lymphocytes # (Manual) Monocytes # (Manual) POC ABG pH ABG pH 7.472 H POC ABG pCO2 POC ABG pO2 ABG pO2 ABG HCO3 38.2 H ABG O2 Saturation ABG Base Excess 13.3 H ABG Hemoglobin 6.5 L Oxyhemoglobin Sodium 149 H Potassium 3.3 L Chloride Carbon Dioxide 31 H BUN 25 H Creatinine 0.5 L Glucose 142 H POC Glucose Calcium 8.2 L AST Total Creatine Kinase Albumin Triglycerides Influenza A (Rapid) 10/27/19 10/28/19 10/28/19 05:40 05:19 05:56 WBC RBC Hgb Hct MCV MCH RDW Lymph % (Auto) [place] % (Auto) Lymph # Seg Neutrophils % Seg Neuts % (Manual) Monocytes % (Manual) Lymphocytes # (Manual) Monocytes # (Manual) POC ABG pH 7.489 H ABG pH POC ABG pCO2 51.0 H POC ABG pO2 71 L ABG pO2 ABG HCO3 ABG O2 Saturation ABG Base Excess ABG Hemoglobin Oxyhemoglobin Sodium 153 H Potassium Chloride Carbon Dioxide 31 H BUN Creatinine 0.4 L Glucose 111 H POC Glucose Calcium 8.1 L AST Total Creatine Kinase Albumin Triglycerides 279 H Influenza A (Rapid) 10/29/19 10/29/19 10/30/19 03:54 04:21 04:48 WBC RBC Hgb Hct MCV MCH RDW Lymph % (Auto) [place] % (Auto) Lymph # Seg Neutrophils % Seg Neuts % (Manual) Monocytes % (Manual) Lymphocytes # (Manual) Monocytes # (Manual) POC ABG pH 7.506 H 7.508 H ABG pH POC ABG pCO2 53.6 H 49.6 H POC ABG pO2 ABG pO2 ABG HCO3 ABG O2 Saturation ABG Base Excess ABG Hemoglobin Oxyhemoglobin Sodium 150 H Potassium Chloride Carbon Dioxide BUN Creatinine 0.4 L Glucose 137 H POC Glucose Calcium AST Total Creatine Kinase Albumin Triglycerides Influenza A (Rapid) 10/30/19 10/30/19 10/31/19 09:54 21:08 00:17 WBC RBC Hgb Hct MCV MCH RDW Lymph % (Auto) [place] % (Auto) Lymph # Seg Neutrophils % Seg Neuts % (Manual) Monocytes % (Manual) Lymphocytes # (Manual) Monocytes # (Manual) POC ABG pH 7.455 H ABG pH POC ABG pCO2 58.6 H POC ABG pO2 74 L ABG pO2 ABG HCO3 ABG O2 Saturation ABG Base Excess ABG Hemoglobin Oxyhemoglobin Sodium 148 H Potassium Chloride Carbon Dioxide BUN Creatinine 0.4 L Glucose 156 H POC Glucose 160 H Calcium AST Total Creatine Kinase Albumin Triglycerides Influenza A (Rapid) 10/31/19 10/31/19 10/31/19 04:42 08:02 16:24 WBC RBC Hgb Hct MCV MCH RDW Lymph % (Auto) [place] % (Auto) Lymph # Seg Neutrophils % Seg Neuts % (Manual) Monocytes % (Manual) Lymphocytes # (Manual) Monocytes # (Manual) POC ABG pH ABG pH POC ABG pCO2 62.2 H POC ABG pO2 76 L ABG pO2 ABG HCO3 ABG O2 Saturation ABG Base Excess ABG Hemoglobin Oxyhemoglobin Sodium 149 H Potassium Chloride Carbon Dioxide BUN Creatinine 0.4 L Glucose 146 H POC Glucose 143 H Calcium AST Total Creatine Kinase Albumin Triglycerides Influenza A (Rapid) 11/01/19 11/01/19 11/01/19 04:25 05:30 05:30 WBC RBC Hgb 9.7 L Hct 30.1 L MCV MCH 26 L RDW 21.6 H Lymph % (Auto) [place] % (Auto) Lymph # Seg Neutrophils % Seg Neuts % (Manual) Monocytes % (Manual) 10.0 H Lymphocytes # (Manual) Monocytes # (Manual) 0.9 H POC ABG pH ABG pH POC ABG pCO2 POC ABG pO2 ABG pO2 67.0 L ABG HCO3 38.2 H ABG O2 Saturation 94.2 L ABG Base Excess 11.8 H ABG Hemoglobin 10.7 L Oxyhemoglobin 91.6 L Sodium 147 H Potassium Chloride Carbon Dioxide 31 H BUN Creatinine 0.4 L Glucose 136 H POC Glucose Calcium AST Total Creatine Kinase Albumin Triglycerides Influenza A (Rapid) 11/01/19 11/02/19 11/02/19 10:32 22:46 23:02 WBC RBC Hgb Hct MCV MCH RDW Lymph % (Auto) [place] % (Auto) Lymph # Seg Neutrophils % Seg Neuts % (Manual) Monocytes % (Manual) Lymphocytes # (Manual) Monocytes # (Manual) POC ABG pH 7.465 H 7.522 H ABG pH POC ABG pCO2 56.8 H 50.0 H POC ABG pO2 71 L ABG pO2 ABG HCO3 ABG O2 Saturation ABG Base Excess ABG Hemoglobin Oxyhemoglobin Sodium Potassium Chloride Carbon Dioxide BUN Creatinine Glucose POC Glucose 126 H Calcium AST Total Creatine Kinase Albumin Triglycerides Influenza A (Rapid) 11/04/19 11/05/19 11/08/19 05:57 04:22 11:47 WBC RBC Hgb Hct MCV MCH RDW Lymph % (Auto) [place] % (Auto) Lymph # Seg Neutrophils % Seg Neuts % (Manual) Monocytes % (Manual) Lymphocytes # (Manual) Monocytes # (Manual) POC ABG pH ABG pH POC ABG pCO2 POC ABG pO2 ABG pO2 ABG HCO3 ABG O2 Saturation ABG Base Excess ABG Hemoglobin Oxyhemoglobin Sodium 148 H Potassium 3.1 L 3.4 L Chloride 97.4 L Carbon Dioxide 34 H 31 H BUN Creatinine 0.5 L 0.4 L Glucose 128 H 110 H POC Glucose 147 H Calcium AST Total Creatine Kinase Albumin Triglycerides Influenza A (Rapid) 11/10/19 09:50 WBC RBC Hgb Hct MCV MCH RDW Lymph % (Auto) [place] % (Auto) Lymph # Seg Neutrophils % Seg Neuts % (Manual) Monocytes % (Manual) Lymphocytes # (Manual) Monocytes # (Manual) POC ABG pH ABG pH POC ABG pCO2 POC ABG pO2 ABG pO2 57.9 L ABG HCO3 29.3 H ABG O2 Saturation 90.8 L ABG Base Excess 3.9 H ABG Hemoglobin Oxyhemoglobin 88.3 L Sodium Potassium Chloride Carbon Dioxide BUN Creatinine Glucose POC Glucose Calcium AST Total Creatine Kinase Albumin Triglycerides Influenza A (Rapid) Allied health notes reviewed: RT
[2019-11-13] MEDS: FERROUS SULFATE 325 MG TAB PO SCH (13:00)
[2019-11-13] MEDS ORDERED: HYDROCORTISONE 1% CREAM 28.4GM TP PRN (13:00)
--- NOTE | 2019-11-13 14:04 | Progress Note ---
Assessment and Plan /Acute hypoxemic respiratory failure. -Respiratory/tracheal aspirate reveals Enterobacter. The patient failed BiPAP and required intubation on 10/23/2019. Patient now extubated. On Oxygen by NC 2l/min. Pulmonary following. /Sepsis. Etiology secondary to pneumonia/influenza A. - Completed antibiotics per ID. /Influenza A. Completed high dose prolonged Tamiflu course. /Bilateral pneumonia. resp culture with GNR, patient treated with abx /Acute on chronic diastolic heart failure. - Echocardiogram revealed The left ventricular size is mildly dilated, mild to moderate concentric LVH, est EF 40-45%, left atrium is mildly dilated, trace MR, mild TR, mild to moderate Pulmonary hypertension, RVSP is calculated at 42 mmHg. /Obesity hypoventilation syndrome/DEAN. -Outpatient evaluation for sleep apnea /Morbid obesity. BMI is 83. - Weight loss and life style modifications on discharge. /Agitation on and off, now resolved. calm today, CT head could not be done because of body habitus. /physical Debility- PT eval ongoing Hopefully dc soon. PT recommendation: acute rehab, CM notified d/c pending on placement vs PT clearance Brief history: The patient is a 49-year-old female with morbid obesity, hypertension, lymphedema, functional quadriplegia and sleep apnea came into the emergency room with shortness of breath and hypoxia. She was started on BiPAP due to her respiratory failure. She was also found to have influenza A and was started empirically on treatment. The patient failed BiPAP and required intubation on 10/23/2019. Patient now extubated. waiting on PT clearance for discharge. Hospitalist Physical GEN: Not in acute distress, lying in bed, morbidly obese HEENT: Normocephalic, atraumatic, Neck: supple, No JVD Lungs: Clear to auscultation bilaterally, no wheeze, heart;S1 and S2 reg, no murmurs Abd:soft, non tender, non distended, normal bowel sounds Ext: No edema, no clubbing, no cyanosis Neuro: AAO X 3, no focal neurological signs, moves all ext Subjective Date of service: 11/13/19 Principal diagnosis: acute respiratory distress Interval history: Patient seen and examined. Medical records and medication list reviewed. No acute event overnight noted by the RN. Patient denies any chest pain or difficulty breathing. Patient is tolerating diet. States her dizziness improved, PT recommended acute rehab Discussed plan of care at bedside with patient. discharge pending on placement or clearance from PT Objective - Constitutional Vitals: Vital Signs - 12hr 11/13/19 11/13/19 11/13/19 03:00 04:53 07:46 Temperature 97.5 F L Pulse Rate 92 H 83 Pulse Rate [ 91 H Anterior Bilateral Throughout] Respiratory 20 22 Rate Respiratory 20 Rate [Anterior Bilateral Throughout] Blood Pressure 135/64 O2 Sat by Pulse 98 98 94 Oximetry - Labs CBC & Chem 7: 11/01/19 05:30 11/07/19 14:29
[2019-11-14 05:38] LABS: Basophils % (Auto) 0.6 % (0.0-1.8); Eosinophils # (Auto) 0.3 K/mm3 (0.0-0.4); Eosinophils % (Auto) 3.3 % (0.0-4.3); Hematocrit 29.9 % (30.3-42.9); Hemoglobin 9.4 gm/dl (10.1-14.3); Lymphocytes # (Auto) 1.8 K/mm3 (1.2-5.4); Lymphocytes % (Auto) 22.7 % (13.4-35.0); Mean Corpuscular HGB Conc 32 % (30-34); Mean Corpuscular Volume 81 fl (79-97); Monocytes # (Auto) 0.6 K/mm3 (0.0-0.8); Monocytes % (Auto) 8.1 % (0.0-7.3); Platelet Count 332 K/mm3 (140-440); Red Cell Distribution Width 18.4 % (13.2-15.2)
[2019-11-14 05:45] LABS: BUN/Creatinine Ratio 17; Blood Urea Nitrogen 5 mg/dL (7-17); Calcium 8.7 mg/dL (8.4-10.2); Hemolysis Index 0
[2019-11-14] MEDS: HEPARIN 5,000 UNIT/1 ML VIAL SUB-Q SCH ×3 (06:28→22:22)
[2019-11-14] MEDS: IPRATROPIUM/ALBUTEROL SULFATE 3 ML AMPUL.NEB IH SCH ×3 (07:29→19:38)
[2019-11-14] MEDS: FERROUS SULFATE 325 MG TAB PO SCH (10:58)
[2019-11-14] MEDS: TAMSULOSIN 0.4 MG CAP PO SCH (10:58)
[2019-11-14] MEDS: carvediloL 3.125 MG TAB PO SCH ×2 (10:58→22:22)
[2019-11-14] MEDS: PANTOPRAZOLE 40 MG TAB PO SCH (10:58)
--- NOTE | 2019-11-14 13:18 | Progress Note ---
Assessment and Plan /Acute hypoxemic respiratory failure. -Respiratory/tracheal aspirate reveals Enterobacter. The patient failed BiPAP and required intubation on 10/23/2019. Patient now extubated. On Oxygen by NC 2l/min. Pulmonary following. /Sepsis. Etiology secondary to pneumonia/influenza A. - Completed antibiotics per ID. /Influenza A. Completed high dose prolonged Tamiflu course. /Bilateral pneumonia. resp culture with GNR, patient treated with abx /Acute on chronic diastolic heart failure. - Echocardiogram revealed The left ventricular size is mildly dilated, mild to moderate concentric LVH, est EF 40-45%, left atrium is mildly dilated, trace MR, mild TR, mild to moderate Pulmonary hypertension, RVSP is calculated at 42 mmHg. /Obesity hypoventilation syndrome/DEAN. -Outpatient evaluation for sleep apnea /Morbid obesity. BMI is 83. - Weight loss and life style modifications on discharge. /Agitation on and off, now resolved. calm today, CT head could not be done because of body habitus. /physical Debility- PT eval ongoing Hopefully dc soon. PT recommendation: acute rehab, CM notified d/c pending on placement vs PT clearance Brief history: The patient is a 49-year-old female with morbid obesity, hypertension, lymphedema, functional quadriplegia and sleep apnea came into the emergency room with shortness of breath and hypoxia. She was started on BiPAP due to her respiratory failure. She was also found to have influenza A and was started empirically on treatment. The patient failed BiPAP and required intubation on 10/23/2019. Patient now extubated. waiting on PT clearance for discharge. Hospitalist Physical GEN: Not in acute distress, lying in bed, morbidly obese HEENT: Normocephalic, atraumatic, Neck: supple, No JVD Lungs: Clear to auscultation bilaterally, no wheeze, heart;S1 and S2 reg, no murmurs Abd:soft, non tender, non distended, normal bowel sounds Ext: No edema, no clubbing, no cyanosis Neuro: AAO X 3, no focal neurological signs, moves all ext Subjective Date of service: 11/14/19 Principal diagnosis: acute respiratory distress Interval history: Patient seen and examined. Medical records and medication list reviewed. No acute event overnight noted by the RN. Patient denies any chest pain or difficulty breathing. Patient is tolerating diet. States her dizziness improved, PT recommended acute rehab Discussed plan of care at bedside with patient. discharge pending on placement or clearance from PT Objective - Constitutional Vitals: Vital Signs - 12hr 11/14/19 11/14/19 11/14/19 06:09 07:29 07:30 Temperature 98.3 F Pulse Rate 84 Pulse Rate [ 90 Anterior Bilateral Throughout] Respiratory 22 Rate Respiratory 18 Rate [Anterior Bilateral Throughout] Blood Pressure 146/65 O2 Sat by Pulse 99 95 Oximetry - Labs CBC & Chem 7: 11/14/19 04:50 11/14/19 04:50 Labs: Abnormal lab results 11/14/19 11/14/19 Range/Units 04:50 04:50 Hgb 9.4 L (10.1-14.3) gm/dl Hct 29.9 L (30.3-42.9) % MCH 25 L (28-32) pg RDW 18.4 H (13.2-15.2) % [place] % (Auto) 8.1 H (0.0-7.3) % BUN 5 L (7-17) mg/dL Creatinine 0.3 L (0.7-1.2) mg/dL Glucose 113 H (65-100) mg/dL
--- NOTE | 2019-11-14 14:11 | Progress Note ---
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 Functional quadriplegia h/o HTN - continue supplemental oxygen for target O2 sats > 88-90% - home oxygen evaluation at discharge - continue BIPAP scheduled qhs - continue bronchodilators with pulmonary hygiene per RT & per protocol - continue Aspiration precautions, HOB>40 degrees - Advance diet per [employer] team - s/p cardiology evaluation for CHF (continue medical therapy) - follow Baeza-cultures (Trend fevers with symptom management/cooling measures) - s/p completed anti-viral therapy, on antibiotics per ID service (cefepime; sputum grew enterobacter spp.) - continue mobility protocol, off loading for pressure ulcer prevention- high ri sk patient - Continue with VTE prophylaxis - Continue stress ulcer prophylaxis - Continue with Accuchecks with glycemic control for SSI (While critically ill target blood glucose of 140-180 mg/dL; avoid hypoglycemia) - Continue to monitor hemodynamics closely - Continue to monitor electrolyte profile closely and replete as indicated - Chronic home medications, resume as clinically indicated - PT/OT - Weight loss and life style modifications on discharge. May need surgical bariatric intervention - Out patient evaluation for sleep apnea CONDITION: STABLE PROGNOSIS: IMPROVED CODE STATUS: FULL CODE Subjective Date of service: 11/14/19 Principal diagnosis: Ac. hypoxic-hypercapnic resp failure; Influenza; extreme obesity; ? DEAN Interval history: Patient is seen today for: Acute hypoxic-hypercapnic respiratory failure; influenza infection; extreme obesity; probable DEAN Seen and examined at bedside; 24hour events reviewed; nursing and respiratory care staff consulted; no adverse overnight events reported to me; resting peacefully in bed; looks and feels so much better; mother is visiting; remains on supplemental oxygen at 2L NC Objective Vital Signs - 12hr 11/14/19 11/14/19 11/14/19 06:09 07:29 07:30 Temperature 98.3 F Pulse Rate 84 Pulse Rate [ 90 Anterior Bilateral Throughout] Respiratory 22 Rate Respiratory 18 Rate [Anterior Bilateral Throughout] Blood Pressure 146/65 O2 Sat by Pulse 99 95 Oximetry 11/14/19 13:49 Temperature Pulse Rate Pulse Rate [ 95 H Anterior Bilateral Throughout] Respiratory Rate Respiratory 18 Rate [Anterior Bilateral Throughout] Blood Pressure O2 Sat by Pulse Oximetry Constitutional: no acute distress, alert, other (on oxygen at 2L [place]) Eyes: non-icteric ENT: oropharynx moist, other (mallampati 3-4) Neck: supple, no lymphadenopathy, no JVD, other (short neck, large circumference) Effort: normal Ascultation: Bilateral: diminished breath sounds, rhonchi Percussion: Bilateral: not dull Cardiovascular: regular rate and rhythm, other (S1,S2) Gastrointestinal: normoactive bowel sounds, soft, non-tender, non-distended Integumentary: normal Extremities: no cyanosis, no edema, pink and warm, pulses normal Neurologic: normal mental status, non-focal exam, pupils equal and round, CN II- XII normal Psychiatric: mood appropriate, affect normal CBC and BMP: 11/14/19 04:50 11/14/19 04:50 ABG, PT/INR, D-dimer: ABG POC ABG pH 7.522 (7.35-7.45) H 11/02/19 23:02 ABG pH 7.416 pH Units (7.350-7.450) 11/10/19 09:50 POC ABG pCO2 50.0 (35-45) H 11/02/19 23:02 ABG pCO2 46.6 mm Hg 11/10/19 09:50 POC ABG pO2 71 (80-105) L 11/02/19 23:02 ABG pO2 57.9 mm Hg (80.0-90.0) L 11/10/19 09:50 POC ABG HCO3 41.0 (22-26 mml/L) 11/02/19 23:02 POC ABG Total CO2 42 (23-27mmol/L) 11/02/19 23:02 POC ABG O2 Sat 95 11/02/19 23:02 ABG O2 Saturation 90.8 % (95.0-99.0) L 11/10/19 09:50 Abnormal lab findings: Abnormal Labs 10/17/19 10/17/19 10/17/19 20:57 20:57 Unknown WBC 4.0 L RBC Hgb Hct MCV 78 L MCH 25 L RDW 24.7 H Lymph % (Auto) [place] % (Auto) Lymph # Seg Neutrophils % Seg Neuts % (Manual) 77.0 H Monocytes % (Manual) 9.0 H Lymphocytes # (Manual) 0.6 L Monocytes # (Manual) POC ABG pH ABG pH POC ABG pCO2 POC ABG pO2 ABG pO2 ABG HCO3 ABG O2 Saturation ABG Base Excess ABG Hemoglobin Oxyhemoglobin Sodium Potassium 3.5 L Chloride Carbon Dioxide BUN Creatinine 0.6 L Glucose 147 H POC Glucose Calcium 7.9 L AST 57 H Total Creatine Kinase 857 H Albumin 3.0 L Triglycerides Influenza A (Rapid) Positive A 10/18/19 10/18/19 10/18/19 05:21 05:21 09:19 WBC 3.3 L RBC Hgb Hct MCV MCH 25 L RDW 24.3 H Lymph % (Auto) 12.5 L [place] % (Auto) 7.9 H Lymph # 0.4 L Seg Neutrophils % 78.6 H Seg Neuts % (Manual) Monocytes % (Manual) Lymphocytes # (Manual) Monocytes # (Manual) POC ABG pH ABG pH POC ABG pCO2 POC ABG pO2 ABG pO2 131.3 H ABG HCO3 30.2 H ABG O2 Saturation ABG Base Excess 4.5 H ABG Hemoglobin 10.7 L Oxyhemoglobin Sodium Potassium Chloride Carbon Dioxide BUN Creatinine Glucose 167 H POC Glucose Calcium 8.3 L AST Total Creatine Kinase Albumin Triglycerides Influenza A (Rapid) 10/18/19 10/18/19 10/19/19 11:28 18:27 06:39 WBC RBC Hgb Hct MCV MCH RDW Lymph % (Auto) [place] % (Auto) Lymph # Seg Neutrophils % Seg Neuts % (Manual) Monocytes % (Manual) Lymphocytes # (Manual) Monocytes # (Manual) POC ABG pH 7.461 H 7.487 H ABG pH POC ABG pCO2 53.4 H 52.8 H 51.7 H POC ABG pO2 70 L 71 L ABG pO2 ABG HCO3 ABG O2 Saturation ABG Base Excess ABG Hemoglobin Oxyhemoglobin Sodium Potassium Chloride Carbon Dioxide BUN Creatinine Glucose POC Glucose Calcium AST Total Creatine Kinase Albumin Triglycerides Influenza A (Rapid) 10/19/19 10/20/19 10/20/19 23:25 05:31 09:08 WBC RBC Hgb Hct MCV MCH RDW Lymph % (Auto) [place] % (Auto) Lymph # Seg Neutrophils % Seg Neuts % (Manual) Monocytes % (Manual) Lymphocytes # (Manual) Monocytes # (Manual) POC ABG pH ABG pH POC ABG pCO2 POC ABG pO2 ABG pO2 ABG HCO3 ABG O2 Saturation ABG Base Excess ABG Hemoglobin Oxyhemoglobin Sodium Potassium Chloride Carbon Dioxide BUN Creatinine Glucose POC Glucose 203 H 144 H 163 H Calcium AST Total Creatine Kinase Albumin Triglycerides Influenza A (Rapid) 10/20/19 10/20/19 10/20/19 10:25 13:22 14:51 WBC RBC Hgb Hct MCV MCH RDW Lymph % (Auto) [place] % (Auto) Lymph # Seg Neutrophils % Seg Neuts % (Manual) Monocytes % (Manual) Lymphocytes # (Manual) Monocytes # (Manual) POC ABG pH 7.632 H ABG pH POC ABG pCO2 POC ABG pO2 74 L ABG pO2 ABG HCO3 ABG O2 Saturation ABG Base Excess ABG Hemoglobin Oxyhemoglobin Sodium 147 H Potassium Chloride Carbon Dioxide 31 H BUN Creatinine 0.5 L Glucose 154 H POC Glucose 178 H Calcium 8.2 L AST Total Creatine Kinase Albumin Triglycerides Influenza A (Rapid) 10/20/19 10/20/19 10/20/19 14:51 17:16 21:30 WBC 11.2 H RBC Hgb Hct MCV 78 L MCH 25 L RDW 23.9 H Lymph % (Auto) [place] % (Auto) Lymph # Seg Neutrophils % Seg Neuts % (Manual) Monocytes % (Manual) Lymphocytes # (Manual) Monocytes # (Manual) POC ABG pH ABG pH POC ABG pCO2 POC ABG pO2 ABG pO2 ABG HCO3 ABG O2 Saturation ABG Base Excess ABG Hemoglobin Oxyhemoglobin Sodium Potassium Chloride Carbon Dioxide BUN Creatinine Glucose POC Glucose 143 H 152 H Calcium AST Total Creatine Kinase Albumin Triglycerides Influenza A (Rapid) 10/20/19 10/21/19 10/21/19 22:52 05:55 08:27 WBC RBC Hgb Hct MCV MCH RDW Lymph % (Auto) [place] % (Auto) Lymph # Seg Neutrophils % Seg Neuts % (Manual) Monocytes % (Manual) Lymphocytes # (Manual) Monocytes # (Manual) POC ABG pH ABG pH POC ABG pCO2 POC ABG pO2 ABG pO2 ABG HCO3 ABG O2 Saturation ABG Base Excess ABG Hemoglobin Oxyhemoglobin Sodium Potassium Chloride Carbon Dioxide BUN Creatinine Glucose POC Glucose 179 H 115 H 131 H Calcium AST Total Creatine Kinase Albumin Triglycerides Influenza A (Rapid) 10/21/19 10/21/19 10/21/19 11:52 16:23 23:38 WBC RBC Hgb Hct MCV MCH RDW Lymph % (Auto) [place] % (Auto) Lymph # Seg Neutrophils % Seg Neuts % (Manual) Monocytes % (Manual) Lymphocytes # (Manual) Monocytes # (Manual) POC ABG pH ABG pH POC ABG pCO2 POC ABG pO2 ABG pO2 ABG HCO3 ABG O2 Saturation ABG Base Excess ABG Hemoglobin Oxyhemoglobin Sodium Potassium Chloride Carbon Dioxide BUN Creatinine Glucose POC Glucose 122 H 120 H 115 H Calcium AST Total Creatine Kinase Albumin Triglycerides Influenza A (Rapid) 10/22/19 10/22/19 10/22/19 00:35 05:19 06:10 WBC RBC Hgb Hct MCV MCH 25 L RDW 22.8 H Lymph % (Auto) [place] % (Auto) Lymph # Seg Neutrophils % Seg Neuts % (Manual) Monocytes % (Manual) Lymphocytes # (Manual) Monocytes # (Manual) POC ABG pH ABG pH 7.520 H POC ABG pCO2 POC ABG pO2 ABG pO2 64.4 L ABG HCO3 36.8 H ABG O2 Saturation ABG Base Excess 12.6 H ABG Hemoglobin 10.4 L Oxyhemoglobin Sodium Potassium Chloride Carbon Dioxide BUN Creatinine Glucose POC Glucose 108 H Calcium AST Total Creatine Kinase Albumin Triglycerides Influenza A (Rapid) 10/22/19 10/24/19 10/25/19 15:40 05:49 04:20 WBC RBC Hgb Hct MCV MCH RDW Lymph % (Auto) [place] % (Auto) Lymph # Seg Neutrophils % Seg Neuts % (Manual) Monocytes % (Manual) Lymphocytes # (Manual) Monocytes # (Manual) POC ABG pH 7.454 H ABG pH POC ABG pCO2 64.1 H 63.5 H POC ABG pO2 73 L ABG pO2 ABG HCO3 ABG O2 Saturation ABG Base Excess ABG Hemoglobin Oxyhemoglobin Sodium 136 L D Potassium Chloride 97.6 L Carbon Dioxide BUN 19 H Creatinine Glucose 125 H POC Glucose Calcium AST Total Creatine Kinase Albumin Triglycerides Influenza A (Rapid) 10/25/19 10/25/19 10/26/19 05:35 05:35 04:19 WBC RBC Hgb 10.0 L Hct MCV MCH 25 L RDW 22.0 H Lymph % (Auto) [place] % (Auto) Lymph # Seg Neutrophils % Seg Neuts % (Manual) Monocytes % (Manual) Lymphocytes # (Manual) Monocytes # (Manual) POC ABG pH ABG pH POC ABG pCO2 66.1 H POC ABG pO2 75 L ABG pO2 ABG HCO3 ABG O2 Saturation ABG Base Excess ABG Hemoglobin Oxyhemoglobin Sodium 147 H D Potassium Chloride Carbon Dioxide 34 H D BUN 23 H Creatinine 0.5 L Glucose 184 H POC Glucose Calcium AST Total Creatine Kinase Albumin Triglycerides Influenza A (Rapid) 10/26/19 10/26/19 10/26/19 05:20 05:20 12:44 WBC RBC Hgb 9.5 L Hct MCV MCH 25 L RDW 22.3 H Lymph % (Auto) [place] % (Auto) Lymph # Seg Neutrophils % Seg Neuts % (Manual) Monocytes % (Manual) Lymphocytes # (Manual) Monocytes # (Manual) POC ABG pH 7.501 H ABG pH POC ABG pCO2 54.7 H POC ABG pO2 69 L ABG pO2 ABG HCO3 ABG O2 Saturation ABG Base Excess ABG Hemoglobin Oxyhemoglobin Sodium 152 H Potassium Chloride Carbon Dioxide 33 H BUN 27 H Creatinine 0.6 L Glucose 135 H POC Glucose Calcium AST Total Creatine Kinase Albumin Triglycerides Influenza A (Rapid) 10/27/19 10/27/19 10/27/19 03:30 05:40 05:40 WBC RBC 3.62 L Hgb 9.4 L Hct 29.1 L MCV MCH 26 L RDW 21.7 H Lymph % (Auto) [place] % (Auto) Lymph # Seg Neutrophils % Seg Neuts % (Manual) Monocytes % (Manual) Lymphocytes # (Manual) Monocytes # (Manual) POC ABG pH ABG pH 7.472 H POC ABG pCO2 POC ABG pO2 ABG pO2 ABG HCO3 38.2 H ABG O2 Saturation ABG Base Excess 13.3 H ABG Hemoglobin 6.5 L Oxyhemoglobin Sodium 149 H Potassium 3.3 L Chloride Carbon Dioxide 31 H BUN 25 H Creatinine 0.5 L Glucose 142 H POC Glucose Calcium 8.2 L AST Total Creatine Kinase Albumin Triglycerides Influenza A (Rapid) 10/27/19 10/28/19 10/28/19 05:40 05:19 05:56 WBC RBC Hgb Hct MCV MCH RDW Lymph % (Auto) [place] % (Auto) Lymph # Seg Neutrophils % Seg Neuts % (Manual) Monocytes % (Manual) Lymphocytes # (Manual) Monocytes # (Manual) POC ABG pH 7.489 H ABG pH POC ABG pCO2 51.0 H POC ABG pO2 71 L ABG pO2 ABG HCO3 ABG O2 Saturation ABG Base Excess ABG Hemoglobin Oxyhemoglobin Sodium 153 H Potassium Chloride Carbon Dioxide 31 H BUN Creatinine 0.4 L Glucose 111 H POC Glucose Calcium 8.1 L AST Total Creatine Kinase Albumin Triglycerides 279 H Influenza A (Rapid) 10/29/19 10/29/19 10/30/19 03:54 04:21 04:48 WBC RBC Hgb Hct MCV MCH RDW Lymph % (Auto) [place] % (Auto) Lymph # Seg Neutrophils % Seg Neuts % (Manual) Monocytes % (Manual) Lymphocytes # (Manual) Monocytes # (Manual) POC ABG pH 7.506 H 7.508 H ABG pH POC ABG pCO2 53.6 H 49.6 H POC ABG pO2 ABG pO2 ABG HCO3 ABG O2 Saturation ABG Base Excess ABG Hemoglobin Oxyhemoglobin Sodium 150 H Potassium Chloride Carbon Dioxide BUN Creatinine 0.4 L Glucose 137 H POC Glucose Calcium AST Total Creatine Kinase Albumin Triglycerides Influenza A (Rapid) 10/30/19 10/30/19 10/31/19 09:54 21:08 00:17 WBC RBC Hgb Hct MCV MCH RDW Lymph % (Auto) [place] % (Auto) Lymph # Seg Neutrophils % Seg Neuts % (Manual) Monocytes % (Manual) Lymphocytes # (Manual) Monocytes # (Manual) POC ABG pH 7.455 H ABG pH POC ABG pCO2 58.6 H POC ABG pO2 74 L ABG pO2 ABG HCO3 ABG O2 Saturation ABG Base Excess ABG Hemoglobin Oxyhemoglobin Sodium 148 H Potassium Chloride Carbon Dioxide BUN Creatinine 0.4 L Glucose 156 H POC Glucose 160 H Calcium AST Total Creatine Kinase Albumin Triglycerides Influenza A (Rapid) 10/31/19 10/31/19 10/31/19 04:42 08:02 16:24 WBC RBC Hgb Hct MCV MCH RDW Lymph % (Auto) [place] % (Auto) Lymph # Seg Neutrophils % Seg Neuts % (Manual) Monocytes % (Manual) Lymphocytes # (Manual) Monocytes # (Manual) POC ABG pH ABG pH POC ABG pCO2 62.2 H POC ABG pO2 76 L ABG pO2 ABG HCO3 ABG O2 Saturation ABG Base Excess ABG Hemoglobin Oxyhemoglobin Sodium 149 H Potassium Chloride Carbon Dioxide BUN Creatinine 0.4 L Glucose 146 H POC Glucose 143 H Calcium AST Total Creatine Kinase Albumin Triglycerides Influenza A (Rapid) 11/01/19 11/01/19 11/01/19 04:25 05:30 05:30 WBC RBC Hgb 9.7 L Hct 30.1 L MCV MCH 26 L RDW 21.6 H Lymph % (Auto) [place] % (Auto) Lymph # Seg Neutrophils % Seg Neuts % (Manual) Monocytes % (Manual) 10.0 H Lymphocytes # (Manual) Monocytes # (Manual) 0.9 H POC ABG pH ABG pH POC ABG pCO2 POC ABG pO2 ABG pO2 67.0 L ABG HCO3 38.2 H ABG O2 Saturation 94.2 L ABG Base Excess 11.8 H ABG Hemoglobin 10.7 L Oxyhemoglobin 91.6 L Sodium 147 H Potassium Chloride Carbon Dioxide 31 H BUN Creatinine 0.4 L Glucose 136 H POC Glucose Calcium AST Total Creatine Kinase Albumin Triglycerides Influenza A (Rapid) 11/01/19 11/02/19 11/02/19 10:32 22:46 23:02 WBC RBC Hgb Hct MCV MCH RDW Lymph % (Auto) [place] % (Auto) Lymph # Seg Neutrophils % Seg Neuts % (Manual) Monocytes % (Manual) Lymphocytes # (Manual) Monocytes # (Manual) POC ABG pH 7.465 H 7.522 H ABG pH POC ABG pCO2 56.8 H 50.0 H POC ABG pO2 71 L ABG pO2 ABG HCO3 ABG O2 Saturation ABG Base Excess ABG Hemoglobin Oxyhemoglobin Sodium Potassium Chloride Carbon Dioxide BUN Creatinine Glucose POC Glucose 126 H Calcium AST Total Creatine Kinase Albumin Triglycerides Influenza A (Rapid) 11/04/19 11/05/19 11/08/19 05:57 04:22 11:47 WBC RBC Hgb Hct MCV MCH RDW Lymph % (Auto) [place] % (Auto) Lymph # Seg Neutrophils % Seg Neuts % (Manual) Monocytes % (Manual) Lymphocytes # (Manual) Monocytes # (Manual) POC ABG pH ABG pH POC ABG pCO2 POC ABG pO2 ABG pO2 ABG HCO3 ABG O2 Saturation ABG Base Excess ABG Hemoglobin Oxyhemoglobin Sodium 148 H Potassium 3.1 L 3.4 L Chloride 97.4 L Carbon Dioxide 34 H 31 H BUN Creatinine 0.5 L 0.4 L Glucose 128 H 110 H POC Glucose 147 H Calcium AST Total Creatine Kinase Albumin Triglycerides Influenza A (Rapid) 11/10/19 11/14/19 11/14/19 09:50 04:50 04:50 WBC RBC Hgb 9.4 L Hct 29.9 L MCV MCH 25 L RDW 18.4 H Lymph % (Auto) [place] % (Auto) 8.1 H Lymph # Seg Neutrophils % Seg Neuts % (Manual) Monocytes % (Manual) Lymphocytes # (Manual) Monocytes # (Manual) POC ABG pH ABG pH POC ABG pCO2 POC ABG pO2 ABG pO2 57.9 L ABG HCO3 29.3 H ABG O2 Saturation 90.8 L ABG Base Excess 3.9 H ABG Hemoglobin Oxyhemoglobin 88.3 L Sodium Potassium Chloride Carbon Dioxide BUN 5 L Creatinine 0.3 L Glucose 113 H POC Glucose Calcium AST Total Creatine Kinase Albumin Triglycerides Influenza A (Rapid) Allied health notes reviewed: nursing
[2019-11-15] MEDS: HEPARIN 5,000 UNIT/1 ML VIAL SUB-Q SCH ×3 (05:12→22:02)
[2019-11-15] MEDS: IPRATROPIUM/ALBUTEROL SULFATE 3 ML AMPUL.NEB IH SCH ×3 (08:46→20:06)
[2019-11-15] MEDS: carvediloL 3.125 MG TAB PO SCH ×2 (09:56→22:04)
[2019-11-15] MEDS: FERROUS SULFATE 325 MG TAB PO SCH (09:56)
[2019-11-15] MEDS: TAMSULOSIN 0.4 MG CAP PO SCH (09:56)
[2019-11-15] MEDS: PANTOPRAZOLE 40 MG TAB PO SCH (09:57)
[2019-11-15] MEDS: guaiFENesin ER 600 MG TAB PO SCH ×2 (11:27→22:03)
--- NOTE | 2019-11-15 14:01 | Progress Note ---
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 Functional quadriplegia h/o HTN - continue supplemental oxygen for target O2 sats > 88-90% - home oxygen evaluation at discharge - continue BIPAP scheduled qhs - continue bronchodilators with pulmonary hygiene per RT & per protocol - continue Aspiration precautions, HOB>40 degrees - Advance diet per NEUROPSYCHIATRIST team - s/p cardiology evaluation for CHF (continue medical therapy) - follow Baeza-cultures (Trend fevers with symptom management/cooling measures) - s/p completed anti-viral therapy, on antibiotics per ID service (cefepime; sputum grew enterobacter spp.) - continue mobility protocol, off loading for pressure ulcer prevention- high ri sk patient - Continue with VTE prophylaxis - Continue stress ulcer prophylaxis - Continue with Accuchecks with glycemic control for SSI (While critically ill target blood glucose of 140-180 mg/dL; avoid hypoglycemia) - Continue to monitor hemodynamics closely - Continue to monitor electrolyte profile closely and replete as indicated - Chronic home medications, resume as clinically indicated - PT/OT - Weight loss and life style modifications on discharge. May need surgical bariatric intervention - Out patient evaluation for sleep apnea CONDITION: STABLE PROGNOSIS: IMPROVED CODE STATUS: FULL CODE Subjective Date of service: 11/15/19 Principal diagnosis: Ac. hypoxic-hypercapnic resp failure; Influenza; extreme obesity; ? DEAN Interval history: Patient is seen today for: Acute hypoxic-hypercapnic respiratory failure; influenza infection; extreme obesity; probable DEAN Seen and examined at bedside; 24hour events reviewed; nursing and respiratory care staff consulted; no adverse overnight events reported to me; resting peacefully in bed; Objective Vital Signs - 12hr 11/15/19 11/15/19 11/15/19 02:17 05:46 08:48 Temperature 98.3 F Pulse Rate 91 H 87 Pulse Rate [ 102 H Anterior Bilateral Throughout] Respiratory 24 Rate Respiratory 18 Rate [Anterior Bilateral Throughout] Blood Pressure 128/68 Blood Pressure [Left] O2 Sat by Pulse 97 97 Oximetry 11/15/19 11/15/19 11/15/19 09:56 11:58 13:50 Temperature 97.8 F Pulse Rate 97 H 98 H Pulse Rate [ 98 H Anterior Bilateral Throughout] Respiratory 20 Rate Respiratory 18 Rate [Anterior Bilateral Throughout] Blood Pressure 127/62 119/48 Blood Pressure [Left] O2 Sat by Pulse 96 Oximetry 11/15/19 13:54 Temperature Pulse Rate Pulse Rate [ Anterior Bilateral Throughout] Respiratory Rate Respiratory Rate [Anterior Bilateral Throughout] Blood Pressure Blood Pressure 142/61 [Left] O2 Sat by Pulse Oximetry Constitutional: no acute distress, alert, other (on oxygen at 2L NC) Eyes: non-icteric ENT: oropharynx moist, other (mallampati 3-4) Neck: supple, no lymphadenopathy, no JVD, other (short neck, large circumference) Effort: normal Ascultation: Bilateral: diminished breath sounds, rhonchi Percussion: Bilateral: not dull Cardiovascular: regular rate and rhythm, other (S1,S2) Gastrointestinal: normoactive bowel sounds, soft, non-tender, non-distended Integumentary: normal Extremities: no cyanosis, no edema, pink and warm, pulses normal Neurologic: normal mental status, non-focal exam, pupils equal and round, CN II- XII normal Psychiatric: mood appropriate, affect normal CBC and BMP: 11/14/19 04:50 11/14/19 04:50 ABG, PT/INR, D-dimer: ABG POC ABG pH 7.522 (7.35-7.45) H 11/02/19 23:02 ABG pH 7.416 pH Units (7.350-7.450) 11/10/19 09:50 POC ABG pCO2 50.0 (35-45) H 11/02/19 23:02 ABG pCO2 46.6 mm Hg 11/10/19 09:50 POC ABG pO2 71 (80-105) L 11/02/19 23:02 ABG pO2 57.9 mm Hg (80.0-90.0) L 11/10/19 09:50 POC ABG HCO3 41.0 (22-26 mml/L) 11/02/19 23:02 POC ABG Total CO2 42 (23-27mmol/L) 11/02/19 23:02 POC ABG O2 Sat 95 11/02/19 23:02 ABG O2 Saturation 90.8 % (95.0-99.0) L 11/10/19 09:50 Abnormal lab findings: Abnormal Labs 10/17/19 10/17/19 10/17/19 20:57 20:57 Unknown WBC 4.0 L RBC Hgb Hct MCV 78 L MCH 25 L RDW 24.7 H Lymph % (Auto) [place] % (Auto) Lymph # Seg Neutrophils % Seg Neuts % (Manual) 77.0 H Monocytes % (Manual) 9.0 H Lymphocytes # (Manual) 0.6 L Monocytes # (Manual) POC ABG pH ABG pH POC ABG pCO2 POC ABG pO2 ABG pO2 ABG HCO3 ABG O2 Saturation ABG Base Excess ABG Hemoglobin Oxyhemoglobin Sodium Potassium 3.5 L Chloride Carbon Dioxide BUN Creatinine 0.6 L Glucose 147 H POC Glucose Calcium 7.9 L AST 57 H Total Creatine Kinase 857 H Albumin 3.0 L Triglycerides Influenza A (Rapid) Positive A 10/18/19 10/18/19 10/18/19 05:21 05:21 09:19 WBC 3.3 L RBC Hgb Hct MCV MCH 25 L RDW 24.3 H Lymph % (Auto) 12.5 L [place] % (Auto) 7.9 H Lymph # 0.4 L Seg Neutrophils % 78.6 H Seg Neuts % (Manual) Monocytes % (Manual) Lymphocytes # (Manual) Monocytes # (Manual) POC ABG pH ABG pH POC ABG pCO2 POC ABG pO2 ABG pO2 131.3 H ABG HCO3 30.2 H ABG O2 Saturation ABG Base Excess 4.5 H ABG Hemoglobin 10.7 L Oxyhemoglobin Sodium Potassium Chloride Carbon Dioxide BUN Creatinine Glucose 167 H POC Glucose Calcium 8.3 L AST Total Creatine Kinase Albumin Triglycerides Influenza A (Rapid) 10/18/19 10/18/19 10/19/19 11:28 18:27 06:39 WBC RBC Hgb Hct MCV MCH RDW Lymph % (Auto) [place] % (Auto) Lymph # Seg Neutrophils % Seg Neuts % (Manual) Monocytes % (Manual) Lymphocytes # (Manual) Monocytes # (Manual) POC ABG pH 7.461 H 7.487 H ABG pH POC ABG pCO2 53.4 H 52.8 H 51.7 H POC ABG pO2 70 L 71 L ABG pO2 ABG HCO3 ABG O2 Saturation ABG Base Excess ABG Hemoglobin Oxyhemoglobin Sodium Potassium Chloride Carbon Dioxide BUN Creatinine Glucose POC Glucose Calcium AST Total Creatine Kinase Albumin Triglycerides Influenza A (Rapid) 10/19/19 10/20/1910/20/19 23:25 05:31 09:08 WBC RBC Hgb Hct MCV MCH RDW Lymph % (Auto) [place] % (Auto) Lymph # Seg Neutrophils % Seg Neuts % (Manual) Monocytes % (Manual) Lymphocytes # (Manual) Monocytes # (Manual) POC ABG pH ABG pH POC ABG pCO2 POC ABG pO2 ABG pO2 ABG HCO3 ABG O2 Saturation ABG Base Excess ABG Hemoglobin Oxyhemoglobin Sodium Potassium Chloride Carbon Dioxide BUN Creatinine Glucose POC Glucose 203 H 144 H 163 H Calcium AST Total Creatine Kinase Albumin Triglycerides Influenza A (Rapid) 10/20/19 10/20/19 10/20/19 10:25 13:22 14:51 WBC RBC Hgb Hct MCV MCH RDW Lymph % (Auto) [place] % (Auto) Lymph # Seg Neutrophils % Seg Neuts % (Manual) Monocytes % (Manual) Lymphocytes # (Manual) Monocytes # (Manual) POC ABG pH 7.632 H ABG pH POC ABG pCO2 POC ABG pO2 74 L ABG pO2 ABG HCO3 ABG O2 Saturation ABG Base Excess ABG Hemoglobin Oxyhemoglobin Sodium 147 H Potassium Chloride Carbon Dioxide 31 H BUN Creatinine 0.5 L Glucose 154 H POC Glucose 178 H Calcium 8.2 L AST Total Creatine Kinase Albumin Triglycerides Influenza A (Rapid) 10/20/19 10/20/19 10/20/19 14:51 17:16 21:30 WBC 11.2 H RBC Hgb Hct MCV 78 L MCH 25 L RDW 23.9 H Lymph % (Auto) [place] % (Auto) Lymph # Seg Neutrophils % Seg Neuts % (Manual) Monocytes % (Manual) Lymphocytes # (Manual) Monocytes # (Manual) POC ABG pH ABG pH POC ABG pCO2 POC ABG pO2 ABG pO2 ABG HCO3 ABG O2 Saturation ABG Base Excess ABG Hemoglobin Oxyhemoglobin Sodium Potassium Chloride Carbon Dioxide BUN Creatinine Glucose POC Glucose 143 H 152 H Calcium AST Total Creatine Kinase Albumin Triglycerides Influenza A (Rapid) 10/20/19 10/21/19 10/21/19 22:52 05:55 08:27 WBC RBC Hgb Hct MCV MCH RDW Lymph % (Auto) [place] % (Auto) Lymph # Seg Neutrophils % Seg Neuts % (Manual) Monocytes % (Manual) Lymphocytes # (Manual) Monocytes # (Manual) POC ABG pH ABG pH POC ABG pCO2 POC ABG pO2 ABG pO2 ABG HCO3 ABG O2 Saturation ABG Base Excess ABG Hemoglobin Oxyhemoglobin Sodium Potassium Chloride Carbon Dioxide BUN Creatinine Glucose POC Glucose 179 H 115 H 131 H Calcium AST Total Creatine Kinase Albumin Triglycerides Influenza A (Rapid) 10/21/19 10/21/19 10/21/19 11:52 16:23 23:38 WBC RBC Hgb Hct MCV MCH RDW Lymph % (Auto) [place] % (Auto) Lymph # Seg Neutrophils % Seg Neuts % (Manual) Monocytes % (Manual) Lymphocytes # (Manual) Monocytes # (Manual) POC ABG pH ABG pH POC ABG pCO2 POC ABG pO2 ABG pO2 ABG HCO3 ABG O2 Saturation ABG Base Excess ABG Hemoglobin Oxyhemoglobin Sodium Potassium Chloride Carbon Dioxide BUN Creatinine Glucose POC Glucose 122 H 120 H 115 H Calcium AST Total Creatine Kinase Albumin Triglycerides Influenza A (Rapid) 10/22/19 10/22/19 10/22/19 00:35 05:19 06:10 WBC RBC Hgb Hct MCV MCH 25 L RDW 22.8 H Lymph % (Auto) [place] % (Auto) Lymph # Seg Neutrophils % Seg Neuts % (Manual) Monocytes % (Manual) Lymphocytes # (Manual) Monocytes # (Manual) POC ABG pH ABG pH 7.520 H POC ABG pCO2 POC ABG pO2 ABG pO2 64.4 L ABG HCO3 36.8 H ABG O2 Saturation ABG Base Excess 12.6 H ABG Hemoglobin 10.4 L Oxyhemoglobin Sodium Potassium Chloride Carbon Dioxide BUN Creatinine Glucose POC Glucose 108 H Calcium AST Total Creatine Kinase Albumin Triglycerides Influenza A (Rapid) 10/22/19 10/24/19 10/25/19 15:40 05:49 04:20 WBC RBC Hgb Hct MCV MCH RDW Lymph % (Auto) [place] % (Auto) Lymph # Seg Neutrophils % Seg Neuts % (Manual) Monocytes % (Manual) Lymphocytes # (Manual) Monocytes # (Manual) POC ABG pH 7.454 H ABG pH POC ABG pCO2 64.1 H 63.5 H POC ABG pO2 73 L ABG pO2 ABG HCO3 ABG O2 Saturation ABG Base Excess ABG Hemoglobin Oxyhemoglobin Sodium 136 L D Potassium Chloride 97.6 L Carbon Dioxide BUN 19 H Creatinine Glucose 125 H POC Glucose Calcium AST Total Creatine Kinase Albumin Triglycerides Influenza A (Rapid) 10/25/19 10/25/1920 05:35 05:35 04:19 WBC RBC Hgb 10.0 L Hct MCV MCH 25 L RDW 22.0 H Lymph % (Auto) [place] % (Auto) Lymph # Seg Neutrophils % Seg Neuts % (Manual) Monocytes % (Manual) Lymphocytes # (Manual) Monocytes # (Manual) POC ABG pH ABG pH POC ABG pCO2 66.1 H POC ABG pO2 75 L ABG pO2 ABG HCO3 ABG O2 Saturation ABG Base Excess ABG Hemoglobin Oxyhemoglobin Sodium 147 H D Potassium Chloride Carbon Dioxide 34 H D BUN 23 H Creatinine 0.5 L Glucose 184 H POC Glucose Calcium AST Total Creatine Kinase Albumin Triglycerides Influenza A (Rapid) 10/26/19 10/26/19 10/26/19 05:20 05:20 12:44 WBC RBC Hgb 9.5 L Hct MCV MCH 25 L RDW 22.3 H Lymph % (Auto) [place] % (Auto) Lymph # Seg Neutrophils % Seg Neuts % (Manual) Monocytes % (Manual) Lymphocytes # (Manual) Monocytes # (Manual) POC ABG pH 7.501 H ABG pH POC ABG pCO2 54.7 H POC ABG pO2 69 L ABG pO2 ABG HCO3 ABG O2 Saturation ABG Base Excess ABG Hemoglobin Oxyhemoglobin Sodium 152 H Potassium Chloride Carbon Dioxide 33 H BUN 27 H Creatinine 0.6 L Glucose 135 H POC Glucose Calcium AST Total Creatine Kinase Albumin Triglycerides Influenza A (Rapid) 10/27/19 10/27/19 10/27/19 03:30 05:40 05:40 WBC RBC 3.62 L Hgb 9.4 L Hct 29.1 L MCV MCH 26 L RDW 21.7 H Lymph % (Auto) [place] % (Auto) Lymph # Seg Neutrophils % Seg Neuts % (Manual) Monocytes % (Manual) Lymphocytes # (Manual) Monocytes # (Manual) POC ABG pH ABG pH 7.472 H POC ABG pCO2 POC ABG pO2 ABG pO2 ABG HCO3 38.2 H ABG O2 Saturation ABG Base Excess 13.3 H ABG Hemoglobin 6.5 L Oxyhemoglobin Sodium 149 H Potassium 3.3 L Chloride Carbon Dioxide 31 H BUN 25 H Creatinine 0.5 L Glucose 142 H POC Glucose Calcium 8.2 L AST Total Creatine Kinase Albumin Triglycerides Influenza A (Rapid) 10/27/19 10/28/19 10/28/19 05:40 05:19 05:56 WBC RBC Hgb Hct MCV MCH RDW Lymph % (Auto) [place] % (Auto) Lymph # Seg Neutrophils % Seg Neuts % (Manual) Monocytes % (Manual) Lymphocytes # (Manual) Monocytes # (Manual) POC ABG pH 7.489 H ABG pH POC ABG pCO2 51.0 H POC ABG pO2 71 L ABG pO2 ABG HCO3 ABG O2 Saturation ABG Base Excess ABG Hemoglobin Oxyhemoglobin Sodium 153 H Potassium Chloride Carbon Dioxide 31 H BUN Creatinine 0.4 L Glucose 111 H POC Glucose Calcium 8.1 L AST Total Creatine Kinase Albumin Triglycerides 279 H Influenza A (Rapid) 10/29/19 10/29/19 10/30/19 03:54 04:21 04:48 WBC RBC Hgb Hct MCV MCH RDW Lymph % (Auto) [place] % (Auto) Lymph # Seg Neutrophils % Seg Neuts % (Manual) Monocytes % (Manual) Lymphocytes # (Manual) Monocytes # (Manual) POC ABG pH 7.506 H 7.508 H ABG pH POC ABG pCO2 53.6 H 49.6 H POC ABG pO2 ABG pO2 ABG HCO3 ABG O2 Saturation ABG Base Excess ABG Hemoglobin Oxyhemoglobin Sodium 150 H Potassium Chloride Carbon Dioxide BUN Creatinine 0.4 L Glucose 137 H POC Glucose Calcium AST Total Creatine Kinase Albumin Triglycerides Influenza A (Rapid) 10/30/19 10/30/19 10/31/19 09:54 21:08 00:17 WBC RBC Hgb Hct MCV MCH RDW Lymph % (Auto) [place] % (Auto) Lymph # Seg Neutrophils % Seg Neuts % (Manual) Monocytes % (Manual) Lymphocytes # (Manual) Monocytes # (Manual) POC ABG pH 7.455 H ABG pH POC ABG pCO2 58.6 H POC ABG pO2 74 L ABG pO2 ABG HCO3 ABG O2 Saturation ABG Base Excess ABG Hemoglobin Oxyhemoglobin Sodium 148 H Potassium Chloride Carbon Dioxide BUN Creatinine 0.4 L Glucose 156 H POC Glucose 160 H Calcium AST Total Creatine Kinase Albumin Triglycerides Influenza A (Rapid) 10/31/19 10/31/19 10/31/19 04:42 08:02 16:24 WBC RBC Hgb Hct MCV MCH RDW Lymph % (Auto) [place] % (Auto) Lymph # Seg Neutrophils % Seg Neuts % (Manual) Monocytes % (Manual) Lymphocytes # (Manual) Monocytes # (Manual) POC ABG pH ABG pH POC ABG pCO2 62.2 H POC ABG pO2 76 L ABG pO2 ABG HCO3 ABG O2 Saturation ABG Base Excess ABG Hemoglobin Oxyhemoglobin Sodium 149 H Potassium Chloride Carbon Dioxide BUN Creatinine 0.4 L Glucose 146 H POC Glucose 143 H Calcium AST Total Creatine Kinase Albumin Triglycerides Influenza A (Rapid) 11/01/19 11/01/19 11/01/19 04:25 05:30 05:30 WBC RBC Hgb 9.7 L Hct 30.1 L MCV MCH 26 L RDW 21.6 H Lymph % (Auto) [place] % (Auto) Lymph # Seg Neutrophils % Seg Neuts % (Manual) Monocytes % (Manual) 10.0 H Lymphocytes # (Manual) Monocytes # (Manual) 0.9 H POC ABG pH ABG pH POC ABG pCO2 POC ABG pO2 ABG pO2 67.0 L ABG HCO3 38.2 H ABG O2 Saturation 94.2 L ABG Base Excess 11.8 H ABG Hemoglobin 10.7 L Oxyhemoglobin 91.6 L Sodium 147 H Potassium Chloride Carbon Dioxide 31 H BUN Creatinine 0.4 L Glucose 136 H POC Glucose Calcium AST Total Creatine Kinase Albumin Triglycerides Influenza A (Rapid) 11/01/19 11/02/19 11/02/19 10:32 22:46 23:02 WBC RBC Hgb Hct MCV MCH RDW Lymph % (Auto) [place] % (Auto) Lymph # Seg Neutrophils % Seg Neuts % (Manual) Monocytes % (Manual) Lymphocytes # (Manual) Monocytes # (Manual) POC ABG pH 7.465 H 7.522 H ABG pH POC ABG pCO2 56.8 H 50.0 H POC ABG pO2 71 L ABG pO2 ABG HCO3 ABG O2 Saturation ABG Base Excess ABG Hemoglobin Oxyhemoglobin Sodium Potassium Chloride Carbon Dioxide BUN Creatinine Glucose POC Glucose 126 H Calcium AST Total Creatine Kinase Albumin Triglycerides Influenza A (Rapid) 11/04/19 11/05/19 11/08/19 05:57 04:22 11:47 WBC RBC Hgb Hct MCV MCH RDW Lymph % (Auto) [place] % (Auto) Lymph # Seg Neutrophils % Seg Neuts % (Manual) Monocytes % (Manual) Lymphocytes # (Manual) Monocytes # (Manual) POC ABG pH ABG pH POC ABG pCO2 POC ABG pO2 ABG pO2 ABG HCO3 ABG O2 Saturation ABG Base Excess ABG Hemoglobin Oxyhemoglobin Sodium 148 H Potassium 3.1 L 3.4 L Chloride 97.4 L Carbon Dioxide 34 H 31 H BUN Creatinine 0.5 L 0.4 L Glucose 128 H 110 H POC Glucose 147 H Calcium AST Total Creatine Kinase Albumin Triglycerides Influenza A (Rapid) 11/10/19 11/14/19 11/14/19 09:50 04:50 04:50 WBC RBC Hgb 9.4 L Hct 29.9 L MCV MCH 25 L RDW 18.4 H Lymph % (Auto) [place] % (Auto) 8.1 H Lymph # Seg Neutrophils % Seg Neuts % (Manual) Monocytes % (Manual) Lymphocytes # (Manual) Monocytes # (Manual) POC ABG pH ABG pH POC ABG pCO2 POC ABG pO2 ABG pO2 57.9 L ABG HCO3 29.3 H ABG O2 Saturation 90.8 L ABG Base Excess 3.9 H ABG Hemoglobin Oxyhemoglobin 88.3 L Sodium Potassium Chloride Carbon Dioxide BUN 5 L Creatinine 0.3 L Glucose 113 H POC Glucose Calcium AST Total Creatine Kinase Albumin Triglycerides Influenza A (Rapid) Allied health notes reviewed: nursing
[2019-11-15 14:34] LABS: ANA Screen, IFA Negative (Negative)
--- NOTE | 2019-11-15 17:00 | Progress Note ---
Assessment and Plan /Acute hypoxemic respiratory failure. -Respiratory/tracheal aspirate reveals Enterobacter. The patient failed BiPAP and required intubation on 10/23/2019. Patient now extubated. On Oxygen by NC 2l/min. Pulmonary following. /Sepsis. Etiology secondary to pneumonia/influenza A. - Completed antibiotics per ID. /Influenza A. Completed high dose prolonged Tamiflu course. /Bilateral pneumonia. resp culture with GNR, patient treated with abx /Acute on chronic diastolic heart failure. - Echocardiogram revealed The left ventricular size is mildly dilated, mild to moderate concentric LVH, est EF 40-45%, left atrium is mildly dilated, trace MR, mild TR, mild to moderate Pulmonary hypertension, RVSP is calculated at 42 mmHg. /Obesity hypoventilation syndrome/DEAN. -Outpatient evaluation for sleep apnea /Morbid obesity. BMI is 83. - Weight loss and life style modifications on discharge. /Agitation on and off, now resolved. calm today, CT head could not be done because of body habitus. /physical Debility- PT eval ongoing Hopefully dc soon. PT recommendation: acute rehab, CM notified d/c pending on placement vs PT clearance Brief history: The patient is a 49-year-old female with morbid obesity, hypertension, lymphedema, functional quadriplegia and sleep apnea came into the emergency room with shortness of breath and hypoxia. She was started on BiPAP due to her respiratory failure. She was also found to have influenza A and was started empirically on treatment. The patient failed BiPAP and required intubation on 10/23/2019. Patient now extubated. waiting on PT clearance for discharge. Hospitalist Physical GEN: Not in acute distress, lying in bed, morbidly obese HEENT: Normocephalic, atraumatic, Neck: supple, No JVD Lungs: Clear to auscultation bilaterally, no wheeze, heart;S1 and S2 reg, no murmurs Abd:soft, non tender, non distended, normal bowel sounds Ext: No edema, no clubbing, no cyanosis Neuro: AAO X 3, no focal neurological signs, moves all ext Subjective Date of service: 11/15/19 Principal diagnosis: Ac. hypoxic-hypercapnic resp failure; Influenza; extreme obesity; ? DEAN Interval history: Patient seen and examined. Medical records and medication list reviewed. No acute event overnight noted by the RN. Patient denies any chest pain or difficulty breathing. Patient is tolerating diet. States her dizziness improved, PT recommended acute rehab Discussed plan of care at bedside with patient. discharge pending on placement or clearance from PT Objective - Constitutional Vitals: Vital Signs - 12hr 11/15/19 11/15/19 11/15/19 05:46 08:48 09:56 Temperature 98.3 F Pulse Rate 87 97 H Pulse Rate [ 102 H Anterior Bilateral Throughout] Respiratory 24 Rate Respiratory 18 Rate [Anterior Bilateral Throughout] Blood Pressure 128/68 127/62 Blood Pressure [Left] O2 Sat by Pulse 97 97 Oximetry 11/15/19 11/15/19 11/15/19 11:58 13:50 13:54 Temperature 97.8 F Pulse Rate 98 H Pulse Rate [ 98 H Anterior Bilateral Throughout] Respiratory 20 Rate Respiratory 18 Rate [Anterior Bilateral Throughout] Blood Pressure 119/48 Blood Pressure 142/61 [Left] O2 Sat by Pulse 96 Oximetry 11/15/19 16:11 Temperature Pulse Rate 93 H Pulse Rate [ Anterior Bilateral Throughout] Respiratory Rate Respiratory Rate [Anterior Bilateral Throughout] Blood Pressure Blood Pressure 125/65 [Left] O2 Sat by Pulse Oximetry - Labs CBC & Chem 7: 11/14/19 04:50 11/14/19 04:50
[2019-11-16] MEDS: HEPARIN 5,000 UNIT/1 ML VIAL SUB-Q SCH ×3 (06:16→21:19)
[2019-11-16] MEDS: IPRATROPIUM/ALBUTEROL SULFATE 3 ML AMPUL.NEB IH SCH ×2 (07:39→19:19)
[2019-11-16] MEDS: PANTOPRAZOLE 40 MG TAB PO SCH (09:58)
[2019-11-16] MEDS: carvediloL 3.125 MG TAB PO SCH ×2 (09:58→21:19)
[2019-11-16] MEDS: guaiFENesin ER 600 MG TAB PO SCH ×2 (09:58→21:19)
[2019-11-16] MEDS: FERROUS SULFATE 325 MG TAB PO SCH (09:59)
[2019-11-16] MEDS: TAMSULOSIN 0.4 MG CAP PO SCH (10:08)
--- NOTE | 2019-11-16 12:28 | Progress Note ---
Assessment and Plan Patient 49yo female with history of HTN recently treated for pneumonia and influenza. Patient is awake and alert. She is on 2.5L O2 via nasal canula with O2 Saturation 86%. BIPAP on standby in room. Patients ABG on room air 11/10/2019 pH 7.4/ pCO2 47/ pO2 58/ HCO3 29/ O2 Sat 91%/ FiO2 21% Patient is afebrile with no leukocytosis. Patient's rheumatoid factor reported <10 which is negative. ZBIGNIEW negative, C-ANCA < 1.0 Recommend to check O2 saturation on room air and document in the chart. Chest x-ray 11/12/2019 reported No change. Bilateral interstitial lung disease of uncertain etiology. Patient's O2 Saturation running low at 86% on 2.5 L O2. Patient is candidate for Home O2. Recommend Home O2 3 L via nasal canula. - Patient Problems (1) Pleural effusion Current Visit: Yes Status: Acute Plan to address problem: Small bilateral pleural effusions Chest x-ray 11/12/2019 reported No change. Bilateral interstitial lung disease of uncertain etiology (2) Acute and chronic respiratory failure with hypercapnia Current Visit: Yes Status: Acute Plan to address problem: 1. On 3 L O2 via nasal canula 2. Albuterol/Atrovent aerosol treatments q6 PRN shortness of breath. 3. Brovanna and Budesonide aerosol treatments q12 4. Continue SC Heparin 5. Continue Protonix 6. Continue Physical Therapy 7. Recommend Home O2 at 3L via nasal canula (3) Morbid obesity Current Visit: Yes Status: Acute Plan to address problem: Recommend to lose weight Recommend sleep study as outpatient Subjective Date of service: 11/16/19 Principal diagnosis: Ac. hypoxic-hypercapnic resp failure; Influenza; extreme obesity; ? DEAN Interval history: Patient 49yo female with history of HTN recently treated for pneumonia and influenza. Patient is awake and alert. She is on 2.5L O2 via nasal canula with O2 Saturation 86%. BIPAP on standby in room. Patients ABG on room air 11/10/2019 pH 7.4/ pCO2 47/ pO2 58/ HCO3 29/ O2 Sat 91%/ FiO2 21% Patient is afebrile with no leukocytosis. Patient's rheumatoid factor reported <10 which is negative. ZBIGNIEW negative, C-ANCA < 1.0 Recommend to check O2 saturation on room air and document in the chart. Chest x-ray 11/12/2019 reported No change. Bilateral interstitial lung disease of uncertain etiology. Patient's O2 Saturation running low at 86% on 2.5 L O2. Patient is candidate for Home O2. Recommend Home O2 3 L via nasal canula. Objective Vital Signs - 12hr 11/16/19 11/16/19 11/16/19 05:09 07:41 09:58 Temperature 98.5 F Pulse Rate 86 97 H Pulse Rate [ 93 H Anterior Bilateral Throughout] Respiratory 22 Rate Respiratory 18 Rate [Anterior Bilateral Throughout] Blood Pressure 131/64 127/59 O2 Sat by Pulse 96 96 Oximetry 11/16/19 11:59 Temperature 97.9 F Pulse Rate 105 H Pulse Rate [ Anterior Bilateral Throughout] Respiratory 18 Rate Respiratory Rate [Anterior Bilateral Throughout] Blood Pressure 126/57 O2 Sat by Pulse 86 Oximetry Constitutional: no acute distress, alert, other (on oxygen at 2L NC) Eyes: non-icteric ENT: oropharynx moist, other (mallampati 3-4) Neck: supple, no lymphadenopathy, no JVD, other (short neck, large circumference) Effort: normal Ascultation: Bilateral: diminished breath sounds, rhonchi Percussion: Bilateral: not dull Cardiovascular: regular rate and rhythm, other (S1,S2) Gastrointestinal: normoactive bowel sounds, soft, non-tender, non-distended Integumentary: normal Extremities: no cyanosis, no edema, pink and warm, pulses normal Neurologic: normal mental status, non-focal exam, pupils equal and round, CN II- XII normal Psychiatric: mood appropriate, affect normal CBC and BMP: 11/14/19 04:50 11/14/19 04:50 ABG, PT/INR, D-dimer: ABG POC ABG pH 7.522 (7.35-7.45) H 11/02/19 23:02 ABG pH 7.416 pH Units (7.350-7.450) 11/10/19 09:50 POC ABG pCO2 50.0 (35-45) H 11/02/19 23:02 ABG pCO2 46.6 mm Hg 11/10/19 09:50 POC ABG pO2 71 (80-105) L 11/02/19 23:02 ABG pO2 57.9 mm Hg (80.0-90.0) L 11/10/19 09:50 POC ABG HCO3 41.0 (22-26 mml/L) 11/02/19 23:02 POC ABG Total CO2 42 (23-27mmol/L) 11/02/19 23:02 POC ABG O2 Sat 95 11/02/19 23:02 ABG O2 Saturation 90.8 % (95.0-99.0) L 11/10/19 09:50 Abnormal lab findings: Abnormal Labs 10/17/19 10/17/19 10/17/19 20:57 20:57 Unknown WBC 4.0 L RBC Hgb Hct MCV 78 L MCH 25 L RDW 24.7 H Lymph % (Auto) [place] % (Auto) Lymph # Seg Neutrophils % Seg Neuts % (Manual) 77.0 H Monocytes % (Manual) 9.0 H Lymphocytes # (Manual) 0.6 L Monocytes # (Manual) POC ABG pH ABG pH POC ABG pCO2 POC ABG pO2 ABG pO2 ABG HCO3 ABG O2 Saturation ABG Base Excess ABG Hemoglobin Oxyhemoglobin Sodium Potassium 3.5 L Chloride Carbon Dioxide BUN Creatinine 0.6 L Glucose 147 H POC Glucose Calcium 7.9 L AST 57 H Total Creatine Kinase 857 H Albumin 3.0 L Triglycerides Influenza A (Rapid) Positive A 10/18/19 10/18/19 10/18/19 05:21 05:21 09:19 WBC 3.3 L RBC Hgb Hct MCV MCH 25 L RDW 24.3 H Lymph % (Auto) 12.5 L [place] % (Auto) 7.9 H Lymph # 0.4 L Seg Neutrophils % 78.6 H Seg Neuts % (Manual) Monocytes % (Manual) Lymphocytes # (Manual) Monocytes # (Manual) POC ABG pH ABG pH POC ABG pCO2 POC ABG pO2 ABG pO2 131.3 H ABG HCO3 30.2 H ABG O2 Saturation ABG Base Excess 4.5 H ABG Hemoglobin 10.7 L Oxyhemoglobin Sodium Potassium Chloride Carbon Dioxide BUN Creatinine Glucose 167 H POC Glucose Calcium 8.3 L AST Total Creatine Kinase Albumin Triglycerides Influenza A (Rapid) 10/18/19 10/18/19 10/19/19 11:28 18:27 06:39 WBC RBC Hgb Hct MCV MCH RDW Lymph % (Auto) [place] % (Auto) Lymph # Seg Neutrophils % Seg Neuts % (Manual) Monocytes % (Manual) Lymphocytes # (Manual) Monocytes # (Manual) POC ABG pH 7.461 H 7.487 H ABG pH POC ABG pCO2 53.4 H 52.8 H 51.7 H POC ABG pO2 70 L 71 L ABG pO2 ABG HCO3 ABG O2 Saturation ABG Base Excess ABG Hemoglobin Oxyhemoglobin Sodium Potassium Chloride Carbon Dioxide BUN Creatinine Glucose POC Glucose Calcium AST Total Creatine Kinase Albumin Triglycerides Influenza A (Rapid) 10/19/19 10/20/19 10/20/19 23:25 05:31 09:08 WBC RBC Hgb Hct MCV MCH RDW Lymph % (Auto) [place] % (Auto) Lymph # Seg Neutrophils % Seg Neuts % (Manual) Monocytes % (Manual) Lymphocytes # (Manual) Monocytes # (Manual) POC ABG pH ABG pH POC ABG pCO2 POC ABG pO2 ABG pO2 ABG HCO3 ABG O2 Saturation ABG Base Excess ABG Hemoglobin Oxyhemoglobin Sodium Potassium Chloride Carbon Dioxide BUN Creatinine Glucose POC Glucose 203 H 144 H 163 H Calcium AST Total Creatine Kinase Albumin Triglycerides Influenza A (Rapid) 10/20/19 10/20/19 10/20/19 10:25 13:22 14:51 WBC RBC Hgb Hct MCV MCH RDW Lymph % (Auto) [place] % (Auto) Lymph # Seg Neutrophils % Seg Neuts % (Manual) Monocytes % (Manual) Lymphocytes # (Manual) Monocytes # (Manual) POC ABG pH 7.632 H ABG pH POC ABG pCO2 POC ABG pO2 74 L ABG pO2 ABG HCO3 ABG O2 Saturation ABG Base Excess ABG Hemoglobin Oxyhemoglobin Sodium 147 H Potassium Chloride Carbon Dioxide 31 H BUN Creatinine 0.5 L Glucose 154 H POC Glucose 178 H Calcium 8.2 L AST Total Creatine Kinase Albumin Triglycerides Influenza A (Rapid) 10/20/19 10/20/19 10/20/19 14:51 17:16 21:30 WBC 11.2 H RBC Hgb Hct MCV 78 L MCH 25 L RDW 23.9 H Lymph % (Auto) [place] % (Auto) Lymph # Seg Neutrophils % Seg Neuts % (Manual) Monocytes % (Manual) Lymphocytes # (Manual) Monocytes # (Manual) POC ABG pH ABG pH POC ABG pCO2 POC ABG pO2 ABG pO2 ABG HCO3 ABG O2 Saturation ABG Base Excess ABG Hemoglobin Oxyhemoglobin Sodium Potassium Chloride Carbon Dioxide BUN Creatinine Glucose POC Glucose 143 H 152 H Calcium AST Total Creatine Kinase Albumin Triglycerides Influenza A (Rapid) 10/20/19 10/21/19 10/21/19 22:52 05:55 08:27 WBC RBC Hgb Hct MCV MCH RDW Lymph % (Auto) [place] % (Auto) Lymph # Seg Neutrophils % Seg Neuts % (Manual) Monocytes % (Manual) Lymphocytes # (Manual) Monocytes # (Manual) POC ABG pH ABG pH POC ABG pCO2 POC ABG pO2 ABG pO2 ABG HCO3 ABG O2 Saturation ABG Base Excess ABG Hemoglobin Oxyhemoglobin Sodium Potassium Chloride Carbon Dioxide BUN Creatinine Glucose POC Glucose 179 H 115 H 131 H Calcium AST Total Creatine Kinase Albumin Triglycerides Influenza A (Rapid) 10/21/19 10/21/19 10/21/19 11:52 16:23 23:38 WBC RBC Hgb Hct MCV MCH RDW Lymph % (Auto) [place] % (Auto) Lymph # Seg Neutrophils % Seg Neuts % (Manual) Monocytes % (Manual) Lymphocytes # (Manual) Monocytes # (Manual) POC ABG pH ABG pH POC ABG pCO2 POC ABG pO2 ABG pO2 ABG HCO3 ABG O2 Saturation ABG Base Excess ABG Hemoglobin Oxyhemoglobin Sodium Potassium Chloride Carbon Dioxide BUN Creatinine Glucose POC Glucose 122 H 120 H 115 H Calcium AST Total Creatine Kinase Albumin Triglycerides Influenza A (Rapid) 10/22/19 10/22/19 10/22/19 00:35 05:19 06:10 WBC RBC Hgb Hct MCV MCH 25 L RDW 22.8 H Lymph % (Auto) [place] % (Auto) Lymph # Seg Neutrophils % Seg Neuts % (Manual) Monocytes % (Manual) Lymphocytes # (Manual) Monocytes # (Manual) POC ABG pH ABG pH 7.520 H POC ABG pCO2 POC ABG pO2 ABG pO2 64.4 L ABG HCO3 36.8 H ABG O2 Saturation ABG Base Excess 12.6 H ABG Hemoglobin 10.4 L Oxyhemoglobin Sodium Potassium Chloride Carbon Dioxide BUN Creatinine Glucose POC Glucose 108 H Calcium AST Total Creatine Kinase Albumin Triglycerides Influenza A (Rapid) 10/22/19 10/24/19 10/25/19 15:40 05:49 04:20 WBC RBC Hgb Hct MCV MCH RDW Lymph % (Auto) [place] % (Auto) Lymph # Seg Neutrophils % Seg Neuts % (Manual) Monocytes % (Manual) Lymphocytes # (Manual) Monocytes # (Manual) POC ABG pH 7.454 H ABG pH POC ABG pCO2 64.1 H 63.5 H POC ABG pO2 73 L ABG pO2 ABG HCO3 ABG O2 Saturation ABG Base Excess ABG Hemoglobin Oxyhemoglobin Sodium 136 L D Potassium Chloride 97.6 L Carbon Dioxide BUN 19 H Creatinine Glucose 125 H POC Glucose Calcium AST Total Creatine Kinase Albumin Triglycerides Influenza A (Rapid) 10/25/19 10/25/19 10/26/19 05:35 05:35 04:19 WBC RBC Hgb 10.0 L Hct MCV MCH 25 L RDW 22.0 H Lymph % (Auto) [place] % (Auto) Lymph # Seg Neutrophils % Seg Neuts % (Manual) Monocytes % (Manual) Lymphocytes # (Manual) Monocytes # (Manual) POC ABG pH ABG pH POC ABG pCO2 66.1 H POC ABG pO2 75 L ABG pO2 ABG HCO3 ABG O2 Saturation ABG Base Excess ABG Hemoglobin Oxyhemoglobin Sodium 147 H D Potassium Chloride Carbon Dioxide 34 H D BUN 23 H Creatinine 0.5 L Glucose 184 H POC Glucose Calcium AST Total Creatine Kinase Albumin Triglycerides Influenza A (Rapid) 10/26/19 10/26/19 10/26/19 05:20 05:20 12:44 WBC RBC Hgb 9.5 L Hct MCV MCH 25 L RDW 22.3 H Lymph % (Auto) [place] % (Auto) Lymph # Seg Neutrophils % Seg Neuts % (Manual) Monocytes % (Manual) Lymphocytes # (Manual) Monocytes # (Manual) POC ABG pH 7.501 H ABG pH POC ABG pCO2 54.7 H POC ABG pO2 69 L ABG pO2 ABG HCO3 ABG O2 Saturation ABG Base Excess ABG Hemoglobin Oxyhemoglobin Sodium 152 H Potassium Chloride Carbon Dioxide 33 H BUN 27 H Creatinine 0.6 L Glucose 135 H POC Glucose Calcium AST Total Creatine Kinase Albumin Triglycerides Influenza A (Rapid) 10/27/19 10/27/19 10/27/19 03:30 05:40 05:40 WBC RBC 3.62 L Hgb 9.4 L Hct 29.1 L MCV MCH 26 L RDW 21.7 H Lymph % (Auto) [place] % (Auto) Lymph # Seg Neutrophils % Seg Neuts % (Manual) Monocytes % (Manual) Lymphocytes # (Manual) Monocytes # (Manual) POC ABG pH ABG pH 7.472 H POC ABG pCO2 POC ABG pO2 ABG pO2 ABG HCO3 38.2 H ABG O2 Saturation ABG Base Excess 13.3 H ABG Hemoglobin 6.5 L Oxyhemoglobin Sodium 149 H Potassium 3.3 L Chloride Carbon Dioxide 31 H BUN 25 H Creatinine 0.5 L Glucose 142 H POC Glucose Calcium 8.2 L AST Total Creatine Kinase Albumin Triglycerides Influenza A (Rapid) 10/27/19 10/28/19 10/28/19 05:40 05:19 05:56 WBC RBC Hgb Hct MCV MCH RDW Lymph % (Auto) [place] % (Auto) Lymph # Seg Neutrophils % Seg Neuts % (Manual) Monocytes % (Manual) Lymphocytes # (Manual) Monocytes # (Manual) POC ABG pH 7.489 H ABG pH POC ABG pCO2 51.0 H POC ABG pO2 71 L ABG pO2 ABG HCO3 ABG O2 Saturation ABG Base Excess ABG Hemoglobin Oxyhemoglobin Sodium 153 H Potassium Chloride Carbon Dioxide 31 H BUN Creatinine 0.4 L Glucose 111 H POC Glucose Calcium 8.1 L AST Total Creatine Kinase Albumin Triglycerides 279 H Influenza A (Rapid) 10/29/19 10/29/19 10/30/19 03:54 04:21 04:48 WBC RBC Hgb Hct MCV MCH RDW Lymph % (Auto) [place] % (Auto) Lymph # Seg Neutrophils % Seg Neuts % (Manual) Monocytes % (Manual) Lymphocytes # (Manual) Monocytes # (Manual) POC ABG pH 7.506 H 7.508 H ABG pH POC ABG pCO2 53.6 H 49.6 H POC ABG pO2 ABG pO2 ABG HCO3 ABG O2 Saturation ABG Base Excess ABG Hemoglobin Oxyhemoglobin Sodium 150 H Potassium Chloride Carbon Dioxide BUN Creatinine 0.4 L Glucose 137 H POC Glucose Calcium AST Total Creatine Kinase Albumin Triglycerides Influenza A (Rapid) 10/30/19 10/30/19 10/31/19 09:54 21:08 00:17 WBC RBC Hgb Hct MCV MCH RDW Lymph % (Auto) [place] % (Auto) Lymph # Seg Neutrophils % Seg Neuts % (Manual) Monocytes % (Manual) Lymphocytes # (Manual) Monocytes # (Manual) POC ABG pH 7.455 H ABG pH POC ABG pCO2 58.6 H POC ABG pO2 74 L ABG pO2 ABG HCO3 ABG O2 Saturation ABG Base Excess ABG Hemoglobin Oxyhemoglobin Sodium 148 H Potassium Chloride Carbon Dioxide BUN Creatinine 0.4 L Glucose 156 H POC Glucose 160 H Calcium AST Total Creatine Kinase Albumin Triglycerides Influenza A (Rapid) 10/31/19 10/31/19 10/31/19 04:42 08:02 16:24 WBC RBC Hgb Hct MCV MCH RDW Lymph % (Auto) [place] % (Auto) Lymph # Seg Neutrophils % Seg Neuts % (Manual) Monocytes % (Manual) Lymphocytes # (Manual) Monocytes # (Manual) POC ABG pH ABG pH POC ABG pCO2 62.2 H POC ABG pO2 76 L ABG pO2 ABG HCO3 ABG O2 Saturation ABG Base Excess ABG Hemoglobin Oxyhemoglobin Sodium 149 H Potassium Chloride Carbon Dioxide BUN Creatinine 0.4 L Glucose 146 H POC Glucose 143 H Calcium AST Total Creatine Kinase Albumin Triglycerides Influenza A (Rapid) 11/01/19 11/01/19 11/01/19 04:25 05:30 05:30 WBC RBC Hgb 9.7 L Hct 30.1 L MCV MCH 26 L RDW 21.6 H Lymph % (Auto) [place] % (Auto) Lymph # Seg Neutrophils % Seg Neuts % (Manual) Monocytes % (Manual) 10.0 H Lymphocytes # (Manual) Monocytes # (Manual) 0.9 H POC ABG pH ABG pH POC ABG pCO2 POC ABG pO2 ABG pO2 67.0 L ABG HCO3 38.2 H ABG O2 Saturation 94.2 L ABG Base Excess 11.8 H ABG Hemoglobin 10.7 L Oxyhemoglobin 91.6 L Sodium 147 H Potassium Chloride Carbon Dioxide 31 H BUN Creatinine 0.4 L Glucose 136 H POC Glucose Calcium AST Total Creatine Kinase Albumin Triglycerides Influenza A (Rapid) 11/01/19 11/02/19 11/02/19 10:32 22:46 23:02 WBC RBC Hgb Hct MCV MCH RDW Lymph % (Auto) [place] % (Auto) Lymph # Seg Neutrophils % Seg Neuts % (Manual) Monocytes % (Manual) Lymphocytes # (Manual) Monocytes # (Manual) POC ABG pH 7.465 H 7.522 H ABG pH POC ABG pCO2 56.8 H 50.0 H POC ABG pO2 71 L ABG pO2 ABG HCO3 ABG O2 Saturation ABG Base Excess ABG Hemoglobin Oxyhemoglobin Sodium Potassium Chloride Carbon Dioxide BUN Creatinine Glucose POC Glucose 126 H Calcium AST Total Creatine Kinase Albumin Triglycerides Influenza A (Rapid) 11/04/19 11/05/19 11/08/19 05:57 04:22 11:47 WBC RBC Hgb Hct MCV MCH RDW Lymph % (Auto) [place] % (Auto) Lymph # Seg Neutrophils % Seg Neuts % (Manual) Monocytes % (Manual) Lymphocytes # (Manual) Monocytes # (Manual) POC ABG pH ABG pH POC ABG pCO2 POC ABG pO2 ABG pO2 ABG HCO3 ABG O2 Saturation ABG Base Excess ABG Hemoglobin Oxyhemoglobin Sodium 148 H Potassium 3.1 L 3.4 L Chloride 97.4 L Carbon Dioxide 34 H 31 H BUN Creatinine 0.5 L 0.4 L Glucose 128 H 110 H POC Glucose 147 H Calcium AST Total Creatine Kinase Albumin Triglycerides Influenza A (Rapid) 11/10/19 11/14/19 11/14/19 09:50 04:50 04:50 WBC RBC Hgb 9.4 L Hct 29.9 L MCV MCH 25 L RDW 18.4 H Lymph % (Auto) [place] % (Auto) 8.1 H Lymph # Seg Neutrophils % Seg Neuts % (Manual) Monocytes % (Manual) Lymphocytes # (Manual) Monocytes # (Manual) POC ABG pH ABG pH POC ABG pCO2 POC ABG pO2 ABG pO2 57.9 L ABG HCO3 29.3 H ABG O2 Saturation 90.8 L ABG Base Excess 3.9 H ABG Hemoglobin Oxyhemoglobin 88.3 L Sodium Potassium Chloride Carbon Dioxide BUN 5 L Creatinine 0.3 L Glucose 113 H POC Glucose Calcium AST Total Creatine Kinase Albumin Triglycerides Influenza A (Rapid) Chest x-ray: report reviewed, image reviewed Additional Studies: Chest x-ray 11/12/2019 reported No change. Bilateral interstitial lung disease of uncertain etiology. Allied health notes reviewed: nursing
--- NOTE | 2019-11-16 12:38 | Progress Note ---
Assessment and Plan /Acute hypoxemic respiratory failure. -Respiratory/tracheal aspirate reveals Enterobacter. The patient failed BiPAP and required intubation on 10/23/2019. Patient now extubated. On Oxygen by NC 2l/min. Pulmonary following. /Sepsis. Etiology secondary to pneumonia/influenza A. - Completed antibiotics per ID. /Influenza A. Completed high dose prolonged Tamiflu course. /Bilateral pneumonia. resp culture with GNR, patient treated with abx /Acute on chronic diastolic heart failure. - Echocardiogram revealed The left ventricular size is mildly dilated, mild to moderate concentric LVH, est EF 40-45%, left atrium is mildly dilated, trace MR, mild TR, mild to moderate Pulmonary hypertension, RVSP is calculated at 42 mmHg. /Obesity hypoventilation syndrome/DEAN. -Outpatient evaluation for sleep apnea /Morbid obesity. BMI is 83. - Weight loss and life style modifications on discharge. /Agitation on and off, now resolved. calm today, CT head could not be done because of body habitus. /physical Debility- PT eval ongoing Hopefully dc soon. PT recommendation: acute rehab, CM notified d/c pending on placement vs PT clearance Brief history: The patient is a 49-year-old female with morbid obesity, hypertension, lymphedema, functional quadriplegia and sleep apnea came into the emergency room with shortness of breath and hypoxia. She was started on BiPAP due to her respiratory failure. She was also found to have influenza A and was started empirically on treatment. The patient failed BiPAP and required intubation on 10/23/2019. Patient now extubated. waiting on PT clearance for discharge. Hospitalist Physical GEN: Not in acute distress, lying in bed, morbidly obese HEENT: Normocephalic, atraumatic, Neck: supple, No JVD Lungs: Clear to auscultation bilaterally, no wheeze, heart;S1 and S2 reg, no murmurs Abd:soft, non tender, non distended, normal bowel sounds Ext: No edema, no clubbing, no cyanosis Neuro: AAO X 3, no focal neurological signs, moves all ext Subjective Date of service: 11/16/19 Principal diagnosis: Ac. hypoxic-hypercapnic resp failure; Influenza; extreme obesity; ? DEAN Interval history: Patient seen and examined. Medical records and medication list reviewed. No acute event overnight noted by the RN. Patient denies any chest pain or difficulty breathing. Patient is tolerating diet. States her dizziness improved, PT recommended acute rehab Discussed plan of care at bedside with patient. discharge pending on placement or clearance from PT Objective - Constitutional Vitals: Vital Signs - 12hr 11/16/19 11/16/19 11/16/19 05:09 07:41 09:58 Temperature 98.5 F Pulse Rate 86 97 H Pulse Rate [ 93 H Anterior Bilateral Throughout] Respiratory 22 Rate Respiratory 18 Rate [Anterior Bilateral Throughout] Blood Pressure 131/64 127/59 O2 Sat by Pulse 96 96 Oximetry 11/16/19 11:59 Temperature 97.9 F Pulse Rate 105 H Pulse Rate [ Anterior Bilateral Throughout] Respiratory 18 Rate Respiratory Rate [Anterior Bilateral Throughout] Blood Pressure 126/57 O2 Sat by Pulse 86 Oximetry - Labs CBC & Chem 7: 11/14/19 04:50 11/14/19 04:50
--- NOTE | 2019-11-16 14:12 | Discharge Summary ---
Providers - Providers Date of Admission: 10/17/19 22:47 Date of discharge: 11/18/19 Attending physician: AMBER BAER 10/17/19 22:48 Consult to Dietitian/Nutrition [CONS] Routine Physician Instructions: Reason For Exam: Reason for Consult: Diet education 10/18/19 08:05 Consult to Physician [CONS] Urgent Comment: Consulting Provider: HEDY MOHAMUD Physician Instructions: Reason For Exam: critical care management 10/18/19 08:58 Consult to Physician [CONS] Routine Comment: Consulting Provider: YAEL MARRERO Physician Instructions: Reason For Exam: Influenza A pneumonia 10/19/19 10:47 Occupational Therapy Evaluate and Treat [CONS] Routine Comment: Reason For Exam: ADLS Physical Therapy Evaluation and Treat [CONS] Routine Comment: Reason For Exam: functional quadriplegia Date of last referral: 10/19/19 Referring MD: HEDY MOHAMUD 10/23/19 16:36 Consult to Dietitian/Nutrition [CONS] Routine Physician Instructions: Reason For Exam: Reason for Consult: Evaluate nutritional intake 10/23/19 17:29 Consult to Dietitian/Nutrition [CONS] Routine Physician Instructions: Reason For Exam: Reason for Consult: Evaluate nutritional intake 10/24/19 11:38 Consult to Dietitian/Nutrition [CONS] Routine Physician Instructions: Start Feeding tube Reason For Exam: Reason for Consult: Write/Manage Tube Feeding 10/24/19 11:41 Midline [Consult to PICC Line RN] [CONS] Routine Reason For Exam: Midline placement Type Line:: Midline 10/28/19 10:57 Occupational Therapy Evaluate and Treat [CONS] Routine Comment: Reason For Exam: deconditioning Physical Therapy Evaluation and Treat [CONS] Routine Comment: Reason For Exam: deconditioning 11/01/19 16:35 Speech Therapy Evaluation and Treat [CONS] Stat Reason For Exam: s/p extubation 11/01/19 16:36 Physical Therapy Evaluation and Treat [CONS] Stat Comment: Reason For Exam: S/P extubation, muslce weakness 11/01/19 16:38 Occupational Therapy Evaluate and Treat [CONS] Stat Comment: Reason For Exam: S/P extubation, muslce weakness 11/05/19 15:08 Consult to Wound/ET Nurse [CONS] Routine Reason For Exam: wound eval 11/09/19 09:00 Consult to Wound/ET Nurse [CONS] Routine Reason For Exam: wound eval Primary care physician: [employer] Hospitalization Condition: Serious Hospital course: Brief history: The patient is a 49-year-old female with morbid obesity, hypertension, lymphedema, functional quadriplegia and sleep apnea came into the emergency room with shortness of breath and hypoxia. She was started on BiPAP due to her respiratory failure. She was also found to have influenza A and was started empirically on treatment. The patient failed BiPAP and required intubation on 10/23/2019. Patient now extubated. waiting on PT clearance for discharge. Discharge diagnosis and Mx: /Acute hypoxemic respiratory failure. -Respiratory/tracheal aspirate reveals Enterobacter. The patient failed BiPAP and required intubation on 10/23/2019. Patient now extubated. On Oxygen by NC 2l/min. Pulmonary following. /Sepsis. Etiology secondary to pneumonia/influenza A. - Completed antibiotics per ID. /Influenza A. Completed high dose prolonged Tamiflu course. /Bilateral pneumonia. resp culture with GNR, patient treated with abx /Acute on chronic diastolic heart failure. - Echocardiogram revealed The left ventricular size is mildly dilated, mild to moderate concentric LVH, est EF 40-45%, left atrium is mildly dilated, trace MR, mild TR, mild to moderate Pulmonary hypertension, RVSP is calculated at 42 mmHg. /Obesity hypoventilation syndrome/DEAN. -Outpatient evaluation for sleep apnea /Morbid obesity. BMI is 83. - Weight loss and life style modifications on discharge. /Agitation on and off, now resolved. calm today, CT head could not be done because of body habitus. /physical Debility- PT eval ongoing PT recommendation: acute rehab, CM notified but unfunded d/c with Hospitalist Physical GEN: Not in acute distress, lying in bed, morbidly obese HEENT: Normocephalic, atraumatic, Neck: supple, No JVD Lungs: Clear to auscultation bilaterally, no wheeze, heart;S1 and S2 reg, no murmurs Abd:soft, non tender, non distended, normal bowel sounds Ext: No edema, no clubbing, no cyanosis Neuro: AAO X 3, no focal neurological signs, moves all ext Disposition: [id number] HOME UNDER HOME [facility] Time spent for discharge: 34 minutes Core Measure Documentation - Palliative Care Palliative Care/ Comfort Measures: Not Applicable - Core Measures Any of the following diagnoses?: none Exam - Constitutional Vitals: Temp Pulse Resp BP Pulse Ox 97.9 F 105 H 18 126/57 86 11/16/19 11:59 11/16/19 11:59 11/16/19 11:59 11/16/19 11:59 11/16/19 11:59 Plan Activity: up only with assistance, fall precautions Weight Bearing Status: Weight Bear as Tolerated Diet: low fat, low salt Follow up with: PRIMARY CARE, [Primary Care Provider] - 7 Days Prescriptions: Ipratropium/Albuterol Sulfate [DUONEB *Not for PRN Use*] 1 ampul IH TIDRT #30 ampul.neb
[2019-11-17] MEDS: IPRATROPIUM/ALBUTEROL SULFATE 3 ML AMPUL.NEB IH SCH ×4 (00:57→20:54)
[2019-11-17] MEDS: HEPARIN 5,000 UNIT/1 ML VIAL SUB-Q SCH ×3 (05:46→22:51)
[2019-11-17] MEDS: PANTOPRAZOLE 40 MG TAB PO SCH (10:38)
[2019-11-17] MEDS: carvediloL 3.125 MG TAB PO SCH ×2 (10:38→22:52)
[2019-11-17] MEDS: TAMSULOSIN 0.4 MG CAP PO SCH (10:38)
[2019-11-17] MEDS: FERROUS SULFATE 325 MG TAB PO SCH (10:39)
[2019-11-17] MEDS: HYDROcodone/ACETAMINOPHEN 5-325 MG TAB PO PRN (10:39)
[2019-11-17] MEDS: guaiFENesin ER 600 MG TAB PO SCH ×2 (10:39→22:51)
--- NOTE | 2019-11-17 13:42 | Progress Note ---
Assessment and Plan Patient 49yo female with history of HTN recently treated for pneumonia and influenza. Patient is awake and alert. She is undergoing physical therapy. She is on 4L O2 via nasal canula with O2 Saturation 99%. BIPAP on standby in room. Patients ABG on room air 11/10/2019 pH 7.4/ pCO2 47/ pO2 58/ HCO3 29/ O2 Sat 91%/ FiO2 21% Patient is afebrile with no leukocytosis. Patient's rheumatoid factor reported <10 which is negative. ZBIGNIEW negative, C-ANCA < 1.0 Recommend to check O2 saturation on room air and document in the chart. Chest x-ray 11/12/2019 reported No change. Bilateral interstitial lung disease of uncertain etiology. Patient's O2 Saturation running low at 86% on 2.5 L O2. Patient is candidate for Home O2. Recommend Home O2 3 L via nasal canula. - Patient Problems (1) Pleural effusion Current Visit: Yes Status: Acute Plan to address problem: Small bilateral pleural effusions Chest x-ray 11/12/2019 reported No change. Bilateral interstitial lung disease of uncertain etiology (2) Acute and chronic respiratory failure with hypercapnia Current Visit: Yes Status: Acute Plan to address problem: 1. On 4 L O2 via nasal canula 2. Albuterol/Atrovent aerosol treatments q6 PRN shortness of breath. 3. Brovanna and Budesonide aerosol treatments q12 4. Continue SC Heparin 5. Continue Protonix 6. Continue Physical Therapy 7. Recommend Home O2 at 3L via nasal canula (3) Morbid obesity Current Visit: Yes Status: Acute Plan to address problem: Recommend to lose weight Recommend sleep study as outpatient Subjective Date of service: 11/17/19 Principal diagnosis: acute respiratory distress Interval history: Patient 49yo female with history of HTN recently treated for pneumonia and influenza. Patient is awake and alert. She is undergoing physical therapy. She is on 4L O2 via nasal canula with O2 Saturation 99%. BIPAP on standby in room. Patients ABG on room air 11/10/2019 pH 7.4/ pCO2 47/ pO2 58/ HCO3 29/ O2 Sat 91%/ FiO2 21% Patient is afebrile with no leukocytosis. Patient's rheumatoid factor reported <10 which is negative. ZBIGNIEW negative, C-ANCA < 1.0 Recommend to check O2 saturation on room air and document in the chart. Chest x-ray 11/12/2019 reported No change. Bilateral interstitial lung disease of uncertain etiology. Patient's O2 Saturation running low at 86% on 2.5 L O2. Patient is candidate for Home O2. Recommend Home O2 3 L via nasal canula. Objective Vital Signs - 12hr 11/17/19 11/17/19 11/17/19 04:09 08:06 08:07 Temperature 97.9 F Pulse Rate 84 Pulse Rate [ 106 H Anterior Bilateral Throughout] Respiratory 18 Rate Respiratory 16 Rate [Anterior Bilateral Throughout] Blood Pressure 124/73 O2 Sat by Pulse 99 99 Oximetry 11/17/19 10:38 Temperature Pulse Rate 95 H Pulse Rate [ Anterior Bilateral Throughout] Respiratory Rate Respiratory Rate [Anterior Bilateral Throughout] Blood Pressure 133/54 O2 Sat by Pulse Oximetry Constitutional: no acute distress, alert, other (on oxygen at 2L NC) Eyes: non-icteric ENT: oropharynx moist Neck: supple, no lymphadenopathy, no JVD, other (short neck, large circunference) Effort: normal Ascultation: Bilateral: diminished breath sounds, rhonchi Percussion: Bilateral: not dull Cardiovascular: regular rate and rhythm, other (S1,S2) Gastrointestinal: normoactive bowel sounds, soft, non-tender, non-distended Integumentary: normal Extremities: no cyanosis, no edema, pink and warm, pulses normal Neurologic: normal mental status, non-focal exam, pupils equal and round, CN II- XII normal Psychiatric: mood appropriate, affect normal CBC and BMP: 11/14/19 04:50 11/14/19 04:50 ABG, PT/INR, D-dimer: ABG POC ABG pH 7.522 (7.35-7.45) H 11/02/19 23:02 ABG pH 7.416 pH Units (7.350-7.450) 11/10/19 09:50 POC ABG pCO2 50.0 (35-45) H 11/02/19 23:02 ABG pCO2 46.6 mm Hg 11/10/19 09:50 POC ABG pO2 71 (80-105) L 11/02/19 23:02 ABG pO2 57.9 mm Hg (80.0-90.0) L 11/10/19 09:50 POC ABG HCO3 41.0 (22-26 mml/L) 11/02/19 23:02 POC ABG Total CO2 42 (23-27mmol/L) 11/02/19 23:02 POC ABG O2 Sat 95 11/02/19 23:02 ABG O2 Saturation 90.8 % (95.0-99.0) L 11/10/19 09:50 Abnormal lab findings: Abnormal Labs 10/17/19 10/17/19 10/17/19 20:57 20:57 Unknown WBC 4.0 L RBC Hgb Hct MCV 78 L MCH 25 L RDW 24.7 H Lymph % (Auto) Vance % (Auto) Lymph # Seg Neutrophils % Seg Neuts % (Manual) 77.0 H Monocytes % (Manual) 9.0 H Lymphocytes # (Manual) 0.6 L Monocytes # (Manual) POC ABG pH ABG pH POC ABG pCO2 POC ABG pO2 ABG pO2 ABG HCO3 ABG O2 Saturation ABG Base Excess ABG Hemoglobin Oxyhemoglobin Sodium Potassium 3.5 L Chloride Carbon Dioxide BUN Creatinine 0.6 L Glucose 147 H POC Glucose Calcium 7.9 L AST 57 H Total Creatine Kinase 857 H Albumin 3.0 L Triglycerides Influenza A (Rapid) Positive A 10/18/19 10/18/19 10/18/19 05:21 05:21 09:19 WBC 3.3 L RBC Hgb Hct MCV MCH 25 L RDW 24.3 H Lymph % (Auto) 12.5 L Vance % (Auto) 7.9 H Lymph # 0.4 L Seg Neutrophils % 78.6 H Seg Neuts % (Manual) Monocytes % (Manual) Lymphocytes # (Manual) Monocytes # (Manual) POC ABG pH ABG pH POC ABG pCO2 POC ABG pO2 ABG pO2 131.3 H ABG HCO3 30.2 H ABG O2 Saturation ABG Base Excess 4.5 H ABG Hemoglobin 10.7 L Oxyhemoglobin Sodium Potassium Chloride Carbon Dioxide BUN Creatinine Glucose 167 H POC Glucose Calcium 8.3 L AST Total Creatine Kinase Albumin Triglycerides Influenza A (Rapid) 10/18/19 10/18/19 10/19/19 11:28 18:27 06:39 WBC RBC Hgb Hct MCV MCH RDW Lymph % (Auto) Vance % (Auto) Lymph # Seg Neutrophils % Seg Neuts % (Manual) Monocytes % (Manual) Lymphocytes # (Manual) Monocytes # (Manual) POC ABG pH 7.461 H 7.487 H ABG pH POC ABG pCO2 53.4 H 52.8 H 51.7 H POC ABG pO2 70 L 71 L ABG pO2 ABG HCO3 ABG O2 Saturation ABG Base Excess ABG Hemoglobin Oxyhemoglobin Sodium Potassium Chloride Carbon Dioxide BUN Creatinine Glucose POC Glucose Calcium AST Total Creatine Kinase Albumin Triglycerides Influenza A (Rapid) 10/19/19 10/20/19 10/20/19 23:25 05:31 09:08 WBC RBC Hgb Hct MCV MCH RDW Lymph % (Auto) Vance % (Auto) Lymph # Seg Neutrophils % Seg Neuts % (Manual) Monocytes % (Manual) Lymphocytes # (Manual) Monocytes # (Manual) POC ABG pH ABG pH POC ABG pCO2 POC ABG pO2 ABG pO2 ABG HCO3 ABG O2 Saturation ABG Base Excess ABG Hemoglobin Oxyhemoglobin Sodium Potassium Chloride Carbon Dioxide BUN Creatinine Glucose POC Glucose 203 H 144 H 163 H Calcium AST Total Creatine Kinase Albumin Triglycerides Influenza A (Rapid) 10/20/19 10/20/19 10/20/19 10:25 13:22 14:51 WBC RBC Hgb Hct MCV MCH RDW Lymph % (Auto) Vance % (Auto) Lymph # Seg Neutrophils % Seg Neuts % (Manual) Monocytes % (Manual) Lymphocytes # (Manual) Monocytes # (Manual) POC ABG pH 7.632 H ABG pH POC ABG pCO2 POC ABG pO2 74 L ABG pO2 ABG HCO3 ABG O2 Saturation ABG Base Excess ABG Hemoglobin Oxyhemoglobin Sodium 147 H Potassium Chloride Carbon Dioxide 31 H BUN Creatinine 0.5 L Glucose 154 H POC Glucose 178 H Calcium 8.2 L AST Total Creatine Kinase Albumin Triglycerides Influenza A (Rapid) 10/20/19 10/20/19 10/20/19 14:51 17:16 21:30 WBC 11.2 H RBC Hgb Hct MCV 78 L MCH 25 L RDW 23.9 H Lymph % (Auto) Vance % (Auto) Lymph # Seg Neutrophils % Seg Neuts % (Manual) Monocytes % (Manual) Lymphocytes # (Manual) Monocytes # (Manual) POC ABG pH ABG pH POC ABG pCO2 POC ABG pO2 ABG pO2 ABG HCO3 ABG O2 Saturation ABG Base Excess ABG Hemoglobin Oxyhemoglobin Sodium Potassium Chloride Carbon Dioxide BUN Creatinine Glucose POC Glucose 143 H 152 H Calcium AST Total Creatine Kinase Albumin Triglycerides Influenza A (Rapid) 10/20/19 10/21/19 10/21/19 22:52 05:55 08:27 WBC RBC Hgb Hct MCV MCH RDW Lymph % (Auto) Vance % (Auto) Lymph # Seg Neutrophils % Seg Neuts % (Manual) Monocytes % (Manual) Lymphocytes # (Manual) Monocytes # (Manual) POC ABG pH ABG pH POC ABG pCO2 POC ABG pO2 ABG pO2 ABG HCO3 ABG O2 Saturation ABG Base Excess ABG Hemoglobin Oxyhemoglobin Sodium Potassium Chloride Carbon Dioxide BUN Creatinine Glucose POC Glucose 179 H 115 H 131 H Calcium AST Total Creatine Kinase Albumin Triglycerides Influenza A (Rapid) 10/21/19 10/21/19 10/21/19 11:52 16:23 23:38 WBC RBC Hgb Hct MCV MCH RDW Lymph % (Auto) Vance % (Auto) Lymph # Seg Neutrophils % Seg Neuts % (Manual) Monocytes % (Manual) Lymphocytes # (Manual) Monocytes # (Manual) POC ABG pH ABG pH POC ABG pCO2 POC ABG pO2 ABG pO2 ABG HCO3 ABG O2 Saturation ABG Base Excess ABG Hemoglobin Oxyhemoglobin Sodium Potassium Chloride Carbon Dioxide BUN Creatinine Glucose POC Glucose 122 H 120 H 115 H Calcium AST Total Creatine Kinase Albumin Triglycerides Influenza A (Rapid) 10/22/19 10/22/19 10/22/19 00:35 05:19 06:10 WBC RBC Hgb Hct MCV MCH 25 L RDW 22.8 H Lymph % (Auto) Vance % (Auto) Lymph # Seg Neutrophils % Seg Neuts % (Manual) Monocytes % (Manual) Lymphocytes # (Manual) Monocytes # (Manual) POC ABG pH ABG pH 7.520 H POC ABG pCO2 POC ABG pO2 ABG pO2 64.4 L ABG HCO3 36.8 H ABG O2 Saturation ABG Base Excess 12.6 H ABG Hemoglobin 10.4 L Oxyhemoglobin Sodium Potassium Chloride Carbon Dioxide BUN Creatinine Glucose POC Glucose 108 H Calcium AST Total Creatine Kinase Albumin Triglycerides Influenza A (Rapid) 10/22/19 10/24/19 10/25/19 15:40 05:49 04:20 WBC RBC Hgb Hct MCV MCH RDW Lymph % (Auto) Vance % (Auto) Lymph # Seg Neutrophils % Seg Neuts % (Manual) Monocytes % (Manual) Lymphocytes # (Manual) Monocytes # (Manual) POC ABG pH 7.454 H ABG pH POC ABG pCO2 64.1 H 63.5 H POC ABG pO2 73 L ABG pO2 ABG HCO3 ABG O2 Saturation ABG Base Excess ABG Hemoglobin Oxyhemoglobin Sodium 136 L D Potassium Chloride 97.6 L Carbon Dioxide BUN 19 H Creatinine Glucose 125 H POC Glucose Calcium AST Total Creatine Kinase Albumin Triglycerides Influenza A (Rapid) 10/25/19 10/25/19 10/26/19 05:35 05:35 04:19 WBC RBC Hgb 10.0 L Hct MCV MCH 25 L RDW 22.0 H Lymph % (Auto) Vance % (Auto) Lymph # Seg Neutrophils % Seg Neuts % (Manual) Monocytes % (Manual) Lymphocytes # (Manual) Monocytes # (Manual) POC ABG pH ABG pH POC ABG pCO2 66.1 H POC ABG pO2 75 L ABG pO2 ABG HCO3 ABG O2 Saturation ABG Base Excess ABG Hemoglobin Oxyhemoglobin Sodium 147 H D Potassium Chloride Carbon Dioxide 34 H D BUN 23 H Creatinine 0.5 L Glucose 184 H POC Glucose Calcium AST Total Creatine Kinase Albumin Triglycerides Influenza A (Rapid) 10/26/19 10/26/19 10/26/19 05:20 05:20 12:44 WBC RBC Hgb 9.5 L Hct MCV MCH 25 L RDW 22.3 H Lymph % (Auto) Vance % (Auto) Lymph # Seg Neutrophils % Seg Neuts % (Manual) Monocytes % (Manual) Lymphocytes # (Manual) Monocytes # (Manual) POC ABG pH 7.501 H ABG pH POC ABG pCO2 54.7 H POC ABG pO2 69 L ABG pO2 ABG HCO3 ABG O2 Saturation ABG Base Excess ABG Hemoglobin Oxyhemoglobin Sodium 152 H Potassium Chloride Carbon Dioxide 33 H BUN 27 H Creatinine 0.6 L Glucose 135 H POC Glucose Calcium AST Total Creatine Kinase Albumin Triglycerides Influenza A (Rapid) 10/27/19 10/27/19 10/27/19 03:30 05:40 05:40 WBC RBC 3.62 L Hgb 9.4 L Hct 29.1 L MCV MCH 26 L RDW 21.7 H Lymph % (Auto) Vance % (Auto) Lymph # Seg Neutrophils % Seg Neuts % (Manual) Monocytes % (Manual) Lymphocytes # (Manual) Monocytes # (Manual) POC ABG pH ABG pH 7.472 H POC ABG pCO2 POC ABG pO2 ABG pO2 ABG HCO3 38.2 H ABG O2 Saturation ABG Base Excess 13.3 H ABG Hemoglobin 6.5 L Oxyhemoglobin Sodium 149 H Potassium 3.3 L Chloride Carbon Dioxide 31 H BUN 25 H Creatinine 0.5 L Glucose 142 H POC Glucose Calcium 8.2 L AST Total Creatine Kinase Albumin Triglycerides Influenza A (Rapid) 10/27/19 10/28/19 10/28/19 05:40 05:19 05:56 WBC RBC Hgb Hct MCV MCH RDW Lymph % (Auto) Vance % (Auto) Lymph # Seg Neutrophils % Seg Neuts % (Manual) Monocytes % (Manual) Lymphocytes # (Manual) Monocytes # (Manual) POC ABG pH 7.489 H ABG pH POC ABG pCO2 51.0 H POC ABG pO2 71 L ABG pO2 ABG HCO3 ABG O2 Saturation ABG Base Excess ABG Hemoglobin Oxyhemoglobin Sodium 153 H Potassium Chloride Carbon Dioxide 31 H BUN Creatinine 0.4 L Glucose 111 H POC Glucose Calcium 8.1 L AST Total Creatine Kinase Albumin Triglycerides 279 H Influenza A (Rapid) 10/29/19 10/29/19 10/30/19 03:54 04:21 04:48 WBC RBC Hgb Hct MCV MCH RDW Lymph % (Auto) Vance % (Auto) Lymph # Seg Neutrophils % Seg Neuts % (Manual) Monocytes % (Manual) Lymphocytes # (Manual) Monocytes # (Manual) POC ABG pH 7.506 H 7.508 H ABG pH POC ABG pCO2 53.6 H 49.6 H POC ABG pO2 ABG pO2 ABG HCO3 ABG O2 Saturation ABG Base Excess ABG Hemoglobin Oxyhemoglobin Sodium 150 H Potassium Chloride Carbon Dioxide BUN Creatinine 0.4 L Glucose 137 H POC Glucose Calcium AST Total Creatine Kinase Albumin Triglycerides Influenza A (Rapid) 10/30/19 10/30/19 10/31/19 09:54 21:08 00:17 WBC RBC Hgb Hct MCV MCH RDW Lymph % (Auto) Vance % (Auto) Lymph # Seg Neutrophils % Seg Neuts % (Manual) Monocytes % (Manual) Lymphocytes # (Manual) Monocytes # (Manual) POC ABG pH 7.455 H ABG pH POC ABG pCO2 58.6 H POC ABG pO2 74 L ABG pO2 ABG HCO3 ABG O2 Saturation ABG Base Excess ABG Hemoglobin Oxyhemoglobin Sodium 148 H Potassium Chloride Carbon Dioxide BUN Creatinine 0.4 L Glucose 156 H POC Glucose 160 H Calcium AST Total Creatine Kinase Albumin Triglycerides Influenza A (Rapid) 10/31/19 10/31/19 10/31/19 04:42 08:02 16:24 WBC RBC Hgb Hct MCV MCH RDW Lymph % (Auto) Vance % (Auto) Lymph # Seg Neutrophils % Seg Neuts % (Manual) Monocytes % (Manual) Lymphocytes # (Manual) Monocytes # (Manual) POC ABG pH ABG pH POC ABG pCO2 62.2 H POC ABG pO2 76 L ABG pO2 ABG HCO3 ABG O2 Saturation ABG Base Excess ABG Hemoglobin Oxyhemoglobin Sodium 149 H Potassium Chloride Carbon Dioxide BUN Creatinine 0.4 L Glucose 146 H POC Glucose 143 H Calcium AST Total Creatine Kinase Albumin Triglycerides Influenza A (Rapid) 11/01/19 11/01/19 11/01/19 04:25 05:30 05:30 WBC RBC Hgb 9.7 L Hct 30.1 L MCV MCH 26 L RDW 21.6 H Lymph % (Auto) Vance % (Auto) Lymph # Seg Neutrophils % Seg Neuts % (Manual) Monocytes % (Manual) 10.0 H Lymphocytes # (Manual) Monocytes # (Manual) 0.9 H POC ABG pH ABG pH POC ABG pCO2 POC ABG pO2 ABG pO2 67.0 L ABG HCO3 38.2 H ABG O2 Saturation 94.2 L ABG Base Excess 11.8 H ABG Hemoglobin 10.7 L Oxyhemoglobin 91.6 L Sodium 147 H Potassium Chloride Carbon Dioxide 31 H BUN Creatinine 0.4 L Glucose 136 H POC Glucose Calcium AST Total Creatine Kinase Albumin Triglycerides Influenza A (Rapid) 11/01/19 11/02/19 11/02/19 10:32 22:46 23:02 WBC RBC Hgb Hct MCV MCH RDW Lymph % (Auto) Vance % (Auto) Lymph # Seg Neutrophils % Seg Neuts % (Manual) Monocytes % (Manual) Lymphocytes # (Manual) Monocytes # (Manual) POC ABG pH 7.465 H 7.522 H ABG pH POC ABG pCO2 56.8 H 50.0 H POC ABG pO2 71 L ABG pO2 ABG HCO3 ABG O2 Saturation ABG Base Excess ABG Hemoglobin Oxyhemoglobin Sodium Potassium Chloride Carbon Dioxide BUN Creatinine Glucose POC Glucose 126 H Calcium AST Total Creatine Kinase Albumin Triglycerides Influenza A (Rapid) 11/04/19 11/05/19 11/08/19 05:57 04:22 11:47 WBC RBC Hgb Hct MCV MCH RDW Lymph % (Auto) Vance % (Auto) Lymph # Seg Neutrophils % Seg Neuts % (Manual) Monocytes % (Manual) Lymphocytes # (Manual) Monocytes # (Manual) POC ABG pH ABG pH POC ABG pCO2 POC ABG pO2 ABG pO2 ABG HCO3 ABG O2 Saturation ABG Base Excess ABG Hemoglobin Oxyhemoglobin Sodium 148 H Potassium 3.1 L 3.4 L Chloride 97.4 L Carbon Dioxide 34 H 31 H BUN Creatinine 0.5 L 0.4 L Glucose 128 H 110 H POC Glucose 147 H Calcium AST Total Creatine Kinase Albumin Triglycerides Influenza A (Rapid) 11/10/19 11/14/19 11/14/19 09:50 04:50 04:50 WBC RBC Hgb 9.4 L Hct 29.9 L MCV MCH 25 L RDW 18.4 H Lymph % (Auto) Vance % (Auto) 8.1 H Lymph # Seg Neutrophils % Seg Neuts % (Manual) Monocytes % (Manual) Lymphocytes # (Manual) Monocytes # (Manual) POC ABG pH ABG pH POC ABG pCO2 POC ABG pO2 ABG pO2 57.9 L ABG HCO3 29.3 H ABG O2 Saturation 90.8 L ABG Base Excess 3.9 H ABG Hemoglobin Oxyhemoglobin 88.3 L Sodium Potassium Chloride Carbon Dioxide BUN 5 L Creatinine 0.3 L Glucose 113 H POC Glucose Calcium AST Total Creatine Kinase Albumin Triglycerides Influenza A (Rapid) Allied health notes reviewed: RT
--- NOTE | 2019-11-17 14:18 | Progress Note ---
Assessment and Plan /Acute hypoxemic respiratory failure. -Respiratory/tracheal aspirate reveals Enterobacter. The patient failed BiPAP and required intubation on 10/23/2019. Patient now extubated. On Oxygen by NC 2l/min. Pulmonary following. /Sepsis. Etiology secondary to pneumonia/influenza A. - Completed antibiotics per ID. /Influenza A. Completed high dose prolonged Tamiflu course. /Bilateral pneumonia. resp culture with GNR, patient treated with abx /Acute on chronic diastolic heart failure. - Echocardiogram revealed The left ventricular size is mildly dilated, mild to moderate concentric LVH, est EF 40-45%, left atrium is mildly dilated, trace MR, mild TR, mild to moderate Pulmonary hypertension, RVSP is calculated at 42 mmHg. /Obesity hypoventilation syndrome/DEAN. -Outpatient evaluation for sleep apnea /Morbid obesity. BMI is 83. - Weight loss and life style modifications on discharge. /Agitation on and off, now resolved. calm today, CT head could not be done because of body habitus. /physical Debility- PT eval ongoing Hopefully dc soon. PT recommendation: acute rehab, CM notified d/c pending on placement vs PT clearance Brief history: The patient is a 49-year-old female with morbid obesity, hypertension, lymphedema, functional quadriplegia and sleep apnea came into the emergency room with shortness of breath and hypoxia. She was started on BiPAP due to her respiratory failure. She was also found to have influenza A and was started empirically on treatment. The patient failed BiPAP and required intubation on 10/23/2019. Patient now extubated. waiting on PT clearance for discharge. Hospitalist Physical GEN: Not in acute distress, lying in bed, morbidly obese HEENT: Normocephalic, atraumatic, Neck: supple, No JVD Lungs: Clear to auscultation bilaterally, no wheeze, heart;S1 and S2 reg, no murmurs Abd:soft, non tender, non distended, normal bowel sounds Ext: No edema, no clubbing, no cyanosis Neuro: AAO X 3, no focal neurological signs, moves all ext Subjective Date of service: 11/15/19 Principal diagnosis: Ac. hypoxic-hypercapnic resp failure; Influenza; extreme obesity; ? DEAN Interval history: Patient seen and examined. Medical records and medication list reviewed. No acute event overnight noted by the RN. Patient denies any chest pain or difficulty breathing. Patient is tolerating diet. States her dizziness improved, PT recommended acute rehab Discussed plan of care at bedside with patient. discharge pending on placement or clearance from PT Subjective Date of service: 11/16/19 Principal diagnosis: acute respiratory distress Objective - Constitutional Vitals: Vital Signs - 12hr 11/17/19 11/17/19 11/17/19 04:09 08:06 08:07 Temperature 97.9 F Pulse Rate 84 Pulse Rate [ 106 H Anterior Bilateral Throughout] Respiratory 18 Rate Respiratory 16 Rate [Anterior Bilateral Throughout] Blood Pressure 124/73 O2 Sat by Pulse 99 99 Oximetry 11/17/19 10:38 Temperature Pulse Rate 95 H Pulse Rate [ Anterior Bilateral Throughout] Respiratory Rate Respiratory Rate [Anterior Bilateral Throughout] Blood Pressure 133/54 O2 Sat by Pulse Oximetry - Labs CBC & Chem 7: 11/14/19 04:50 11/14/19 04:50
--- NOTE | 2019-11-17 17:55 | XRay Report ---
LEFT HAND 2 VIEWS INDICATION / CLINICAL INFORMATION: pain. COMPARISON: None available. FINDINGS: No significant skeletal abnormality Signer Name: Héctor Watters MD FACR Signed: 11/17/2019 5:50 PM Workstation Name: [id number]
[2019-11-18] MEDS: HEPARIN 5,000 UNIT/1 ML VIAL SUB-Q SCH ×2 (05:30→14:31)
[2019-11-18] MEDS: IPRATROPIUM/ALBUTEROL SULFATE 3 ML AMPUL.NEB IH SCH ×3 (08:13→20:16)
--- NOTE | 2019-11-18 09:40 | Progress Note ---
Assessment and Plan Patient 49yo female with history of HTN recently treated for pneumonia and influenza. Patient is awake and alert. She is undergoing physical therapy. She is on 1.5L O2 via nasal canula with O2 Saturation 96%. BIPAP on standby in room. Patients ABG on room air 11/10/2019 pH 7.4/ pCO2 47/ pO2 58/ HCO3 29/ O2 Sat 91%/ FiO2 21% Patient is afebrile with no leukocytosis. Patient's rheumatoid factor reported <10 which is negative. ZBIGNIEW negative, C-ANCA < 1.0 Recommend to check O2 saturation on room air and document in the chart. Chest x-ray 11/12/2019 reported No change. Bilateral interstitial lung disease of uncertain etiology. Patient's O2 Saturation running low at 86% on 2.5 L O2. Patient is candidate for Home O2. Recommend Home O2 3 L via nasal canula. - Patient Problems (1) Pleural effusion Current Visit: Yes Status: Acute Plan to address problem: Small bilateral pleural effusions Chest x-ray 11/12/2019 reported No change. Bilateral interstitial lung disease of uncertain etiology (2) Acute and chronic respiratory failure with hypercapnia Current Visit: Yes Status: Acute Plan to address problem: 1. On 1.5 L O2 via nasal canula 2. Albuterol/Atrovent aerosol treatments q6 PRN shortness of breath. 3. Brovanna and Budesonide aerosol treatments q12 4. Continue SC Heparin 5. Continue Protonix 6. Continue Physical Therapy 7. Recommend Home O2 at 2L via nasal canula (3) Morbid obesity Current Visit: Yes Status: Acute Plan to address problem: Recommend to lose weight Recommend sleep study as outpatient Subjective Date of service: 11/18/19 Principal diagnosis: acute respiratory distress Interval history: Patient 49yo female with history of HTN recently treated for pneumonia and influenza. Patient is awake and alert. She is undergoing physical therapy. She is on 1.5L O2 via nasal canula with O2 Saturation 96%. BIPAP on standby in room. Patients ABG on room air 11/10/2019 pH 7.4/ pCO2 47/ pO2 58/ HCO3 29/ O2 Sat 91%/ FiO2 21% Patient is afebrile with no leukocytosis. Patient's rheumatoid factor reported <10 which is negative. ZBIGNIEW negative, C-ANCA < 1.0 Recommend to check O2 saturation on room air and document in the chart. Chest x-ray 11/12/2019 reported No change. Bilateral interstitial lung disease of uncertain etiology. Patient's O2 Saturation running low at 86% on 2.5 L O2. Patient is candidate for Home O2. Recommend Home O2 3 L via nasal canula. Objective Vital Signs - 12hr 11/17/19 11/17/19 11/17/19 22:00 22:49 22:52 Pulse Rate 82 104 H 106 H Pulse Rate [ Anterior Bilateral Throughout] Respiratory Rate Respiratory Rate [Anterior Bilateral Throughout] Respiratory 18 Rate [Left Hand ] Respiratory 19 Rate [denies] Blood Pressure 103/48 103/48 O2 Sat by Pulse 96 Oximetry 11/17/19 11/18/19 11/18/19 23:30 08:00 08:14 Pulse Rate 105 H Pulse Rate [ 100 H Anterior Bilateral Throughout] Respiratory 23 Rate Respiratory 17 Rate [Anterior Bilateral Throughout] Respiratory Rate [Left Hand ] Respiratory Rate [denies] Blood Pressure O2 Sat by Pulse 97 94 Oximetry Constitutional: no acute distress, alert, other (on oxygen at 2L NC) Eyes: non-icteric ENT: oropharynx moist Neck: supple, no lymphadenopathy, no JVD, other (short neck, large circunference) Effort: normal Ascultation: Bilateral: diminished breath sounds, rhonchi Percussion: Bilateral: not dull Cardiovascular: regular rate and rhythm, other (S1,S2) Gastrointestinal: normoactive bowel sounds, soft, non-tender, non-distended Integumentary: normal Extremities: no cyanosis, no edema, pink and warm, pulses normal Neurologic: normal mental status, non-focal exam, pupils equal and round, CN II- XII normal Psychiatric: mood appropriate, affect normal CBC and BMP: 11/14/19 04:50 11/14/19 04:50 ABG, PT/INR, D-dimer: ABG POC ABG pH 7.522 (7.35-7.45) H 11/02/19 23:02 ABG pH 7.416 pH Units (7.350-7.450) 11/10/19 09:50 POC ABG pCO2 50.0 (35-45) H 11/02/19 23:02 ABG pCO2 46.6 mm Hg 11/10/19 09:50 POC ABG pO2 71 (80-105) L 11/02/19 23:02 ABG pO2 57.9 mm Hg (80.0-90.0) L 11/10/19 09:50 POC ABG HCO3 41.0 (22-26 mml/L) 11/02/19 23:02 POC ABG Total CO2 42 (23-27mmol/L) 11/02/19 23:02 POC ABG O2 Sat 95 11/02/19 23:02 ABG O2 Saturation 90.8 % (95.0-99.0) L 11/10/19 09:50 Abnormal lab findings: Abnormal Labs 10/17/19 10/17/19 10/17/19 20:57 20:57 Unknown WBC 4.0 L RBC Hgb Hct MCV 78 L MCH 25 L RDW 24.7 H Lymph % (Auto) [place] % (Auto) Lymph # Seg Neutrophils % Seg Neuts % (Manual) 77.0 H Monocytes % (Manual) 9.0 H Lymphocytes # (Manual) 0.6 L Monocytes # (Manual) POC ABG pH ABG pH POC ABG pCO2 POC ABG pO2 ABG pO2 ABG HCO3 ABG O2 Saturation ABG Base Excess ABG Hemoglobin Oxyhemoglobin Sodium Potassium 3.5 L Chloride Carbon Dioxide BUN Creatinine 0.6 L Glucose 147 H POC Glucose Calcium 7.9 L AST 57 H Total Creatine Kinase 857 H Albumin 3.0 L Triglycerides Influenza A (Rapid) Positive A 10/18/19 10/18/19 10/18/19 05:21 05:21 09:19 WBC 3.3 L RBC Hgb Hct MCV MCH 25 L RDW 24.3 H Lymph % (Auto) 12.5 L [place] % (Auto) 7.9 H Lymph # 0.4 L Seg Neutrophils % 78.6 H Seg Neuts % (Manual) Monocytes % (Manual) Lymphocytes # (Manual) Monocytes # (Manual) POC ABG pH ABG pH POC ABG pCO2 POC ABG pO2 ABG pO2 131.3 H ABG HCO3 30.2 H ABG O2 Saturation ABG Base Excess 4.5 H ABG Hemoglobin 10.7 L Oxyhemoglobin Sodium Potassium Chloride Carbon Dioxide BUN Creatinine Glucose 167 H POC Glucose Calcium 8.3 L AST Total Creatine Kinase Albumin Triglycerides Influenza A (Rapid) 10/18/19 10/18/19 10/19/19 11:28 18:27 06:39 WBC RBC Hgb Hct MCV MCH RDW Lymph % (Auto) [place] % (Auto) Lymph # Seg Neutrophils % Seg Neuts % (Manual) Monocytes % (Manual) Lymphocytes # (Manual) Monocytes # (Manual) POC ABG pH 7.461 H 7.487 H ABG pH POC ABG pCO2 53.4 H 52.8 H 51.7 H POC ABG pO2 70 L 71 L ABG pO2 ABG HCO3 ABG O2 Saturation ABG Base Excess ABG Hemoglobin Oxyhemoglobin Sodium Potassium Chloride Carbon Dioxide BUN Creatinine Glucose POC Glucose Calcium AST Total Creatine Kinase Albumin Triglycerides Influenza A (Rapid) 10/19/19 10/20/19 10/20/19 23:25 05:31 09:08 WBC RBC Hgb Hct MCV MCH RDW Lymph % (Auto) [place] % (Auto) Lymph # Seg Neutrophils % Seg Neuts % (Manual) Monocytes % (Manual) Lymphocytes # (Manual) Monocytes # (Manual) POC ABG pH ABG pH POC ABG pCO2 POC ABG pO2 ABG pO2 ABG HCO3 ABG O2 Saturation ABG Base Excess ABG Hemoglobin Oxyhemoglobin Sodium Potassium Chloride Carbon Dioxide BUN Creatinine Glucose POC Glucose 203 H 144 H 163 H Calcium AST Total Creatine Kinase Albumin Triglycerides Influenza A (Rapid) 10/20/19 10/20/19 10/20/19 10:25 13:22 14:51 WBC RBC Hgb Hct MCV MCH RDW Lymph % (Auto) [place] % (Auto) Lymph # Seg Neutrophils % Seg Neuts % (Manual) Monocytes % (Manual) Lymphocytes # (Manual) Monocytes # (Manual) POC ABG pH 7.632 H ABG pH POC ABG pCO2 POC ABG pO2 74 L ABG pO2 ABG HCO3 ABG O2 Saturation ABG Base Excess ABG Hemoglobin Oxyhemoglobin Sodium 147 H Potassium Chloride Carbon Dioxide 31 H BUN Creatinine 0.5 L Glucose 154 H POC Glucose 178 H Calcium 8.2 L AST Total Creatine Kinase Albumin Triglycerides Influenza A (Rapid) 10/20/19 10/20/19 10/20/19 14:51 17:16 21:30 WBC 11.2 H RBC Hgb Hct MCV 78 L MCH 25 L RDW 23.9 H Lymph % (Auto) [place] % (Auto) Lymph # Seg Neutrophils % Seg Neuts % (Manual) Monocytes % (Manual) Lymphocytes # (Manual) Monocytes # (Manual) POC ABG pH ABG pH POC ABG pCO2 POC ABG pO2 ABG pO2 ABG HCO3 ABG O2 Saturation ABG Base Excess ABG Hemoglobin Oxyhemoglobin Sodium Potassium Chloride Carbon Dioxide BUN Creatinine Glucose POC Glucose 143 H 152 H Calcium AST Total Creatine Kinase Albumin Triglycerides Influenza A (Rapid) 10/20/19 10/21/19 10/21/19 22:52 05:55 08:27 WBC RBC Hgb Hct MCV MCH RDW Lymph % (Auto) [place] % (Auto) Lymph # Seg Neutrophils % Seg Neuts % (Manual) Monocytes % (Manual) Lymphocytes # (Manual) Monocytes # (Manual) POC ABG pH ABG pH POC ABG pCO2 POC ABG pO2 ABG pO2 ABG HCO3 ABG O2 Saturation ABG Base Excess ABG Hemoglobin Oxyhemoglobin Sodium Potassium Chloride Carbon Dioxide BUN Creatinine Glucose POC Glucose 179 H 115 H 131 H Calcium AST Total Creatine Kinase Albumin Triglycerides Influenza A (Rapid) 10/21/19 10/21/19 10/21/19 11:52 16:23 23:38 WBC RBC Hgb Hct MCV MCH RDW Lymph % (Auto) [place] % (Auto) Lymph # Seg Neutrophils % Seg Neuts % (Manual) Monocytes % (Manual) Lymphocytes # (Manual) Monocytes # (Manual) POC ABG pH ABG pH POC ABG pCO2 POC ABG pO2 ABG pO2 ABG HCO3 ABG O2 Saturation ABG Base Excess ABG Hemoglobin Oxyhemoglobin Sodium Potassium Chloride Carbon Dioxide BUN Creatinine Glucose POC Glucose 122 H 120 H 115 H Calcium AST Total Creatine Kinase Albumin Triglycerides Influenza A (Rapid) 10/22/19 10/22/19 10/22/19 00:35 05:19 06:10 WBC RBC Hgb Hct MCV MCH 25 L RDW 22.8 H Lymph % (Auto) [place] % (Auto) Lymph # Seg Neutrophils % Seg Neuts % (Manual) Monocytes % (Manual) Lymphocytes # (Manual) Monocytes # (Manual) POC ABG pH ABG pH 7.520 H POC ABG pCO2 POC ABG pO2 ABG pO2 64.4 L ABG HCO3 36.8 H ABG O2 Saturation ABG Base Excess 12.6 H ABG Hemoglobin 10.4 L Oxyhemoglobin Sodium Potassium Chloride Carbon Dioxide BUN Creatinine Glucose POC Glucose 108 H Calcium AST Total Creatine Kinase Albumin Triglycerides Influenza A (Rapid) 10/22/19 10/24/19 10/25/19 15:40 05:49 04:20 WBC RBC Hgb Hct MCV MCH RDW Lymph % (Auto) [place] % (Auto) Lymph # Seg Neutrophils % Seg Neuts % (Manual) Monocytes % (Manual) Lymphocytes # (Manual) Monocytes # (Manual) POC ABG pH 7.454 H ABG pH POC ABG pCO2 64.1 H 63.5 H POC ABG pO2 73 L ABG pO2 ABG HCO3 ABG O2 Saturation ABG Base Excess ABG Hemoglobin Oxyhemoglobin Sodium 136 L D Potassium Chloride 97.6 L Carbon Dioxide BUN 19 H Creatinine Glucose 125 H POC Glucose Calcium AST Total Creatine Kinase Albumin Triglycerides Influenza A (Rapid) 10/25/19 10/25/19 10/26/19 05:35 05:35 04:19 WBC RBC Hgb 10.0 L Hct MCV MCH 25 L RDW 22.0 H Lymph % (Auto) [place] % (Auto) Lymph # Seg Neutrophils % Seg Neuts % (Manual) Monocytes % (Manual) Lymphocytes # (Manual) Monocytes # (Manual) POC ABG pH ABG pH POC ABG pCO2 66.1 H POC ABG pO2 75 L ABG pO2 ABG HCO3 ABG O2 Saturation ABG Base Excess ABG Hemoglobin Oxyhemoglobin Sodium 147 H D Potassium Chloride Carbon Dioxide 34 H D BUN 23 H Creatinine 0.5 L Glucose 184 H POC Glucose Calcium AST Total Creatine Kinase Albumin Triglycerides Influenza A (Rapid) 10/26/19 10/26/19 10/26/19 05:20 05:20 12:44 WBC RBC Hgb 9.5 L Hct MCV MCH 25 L RDW 22.3 H Lymph % (Auto) [place] % (Auto) Lymph # Seg Neutrophils % Seg Neuts % (Manual) Monocytes % (Manual) Lymphocytes # (Manual) Monocytes # (Manual) POC ABG pH 7.501 H ABG pH POC ABG pCO2 54.7 H POC ABG pO2 69 L ABG pO2 ABG HCO3 ABG O2 Saturation ABG Base Excess ABG Hemoglobin Oxyhemoglobin Sodium 152 H Potassium Chloride Carbon Dioxide 33 H BUN 27 H Creatinine 0.6 L Glucose 135 H POC Glucose Calcium AST Total Creatine Kinase Albumin Triglycerides Influenza A (Rapid) 10/27/19 10/27/19 10/27/19 03:30 05:40 05:40 WBC RBC 3.62 L Hgb 9.4 L Hct 29.1 L MCV MCH 26 L RDW 21.7 H Lymph % (Auto) [place] % (Auto) Lymph # Seg Neutrophils % Seg Neuts % (Manual) Monocytes % (Manual) Lymphocytes # (Manual) Monocytes # (Manual) POC ABG pH ABG pH 7.472 H POC ABG pCO2 POC ABG pO2 ABG pO2 ABG HCO3 38.2 H ABG O2 Saturation ABG Base Excess 13.3 H ABG Hemoglobin 6.5 L Oxyhemoglobin Sodium 149 H Potassium 3.3 L Chloride Carbon Dioxide 31 H BUN 25 H Creatinine 0.5 L Glucose 142 H POC Glucose Calcium 8.2 L AST Total Creatine Kinase Albumin Triglycerides Influenza A (Rapid) 10/27/19 10/28/19 10/28/19 05:40 05:19 05:56 WBC RBC Hgb Hct MCV MCH RDW Lymph % (Auto) [place] % (Auto) Lymph # Seg Neutrophils % Seg Neuts % (Manual) Monocytes % (Manual) Lymphocytes # (Manual) Monocytes # (Manual) POC ABG pH 7.489 H ABG pH POC ABG pCO2 51.0 H POC ABG pO2 71 L ABG pO2 ABG HCO3 ABG O2 Saturation ABG Base Excess ABG Hemoglobin Oxyhemoglobin Sodium 153 H Potassium Chloride Carbon Dioxide 31 H BUN Creatinine 0.4 L Glucose 111 H POC Glucose Calcium 8.1 L AST Total Creatine Kinase Albumin Triglycerides 279 H Influenza A (Rapid) 10/29/19 10/29/19 10/30/19 03:54 04:21 04:48 WBC RBC Hgb Hct MCV MCH RDW Lymph % (Auto) [place] % (Auto) Lymph # Seg Neutrophils % Seg Neuts % (Manual) Monocytes % (Manual) Lymphocytes # (Manual) Monocytes # (Manual) POC ABG pH 7.506 H 7.508 H ABG pH POC ABG pCO2 53.6 H 49.6 H POC ABG pO2 ABG pO2 ABG HCO3 ABG O2 Saturation ABG Base Excess ABG Hemoglobin Oxyhemoglobin Sodium 150 H Potassium Chloride Carbon Dioxide BUN Creatinine 0.4 L Glucose 137 H POC Glucose Calcium AST Total Creatine Kinase Albumin Triglycerides Influenza A (Rapid) 10/30/19 10/30/19 10/31/19 09:54 21:08 00:17 WBC RBC Hgb Hct MCV MCH RDW Lymph % (Auto) [place] % (Auto) Lymph # Seg Neutrophils % Seg Neuts % (Manual) Monocytes % (Manual) Lymphocytes # (Manual) Monocytes # (Manual) POC ABG pH 7.455 H ABG pH POC ABG pCO2 58.6 H POC ABG pO2 74 L ABG pO2 ABG HCO3 ABG O2 Saturation ABG Base Excess ABG Hemoglobin Oxyhemoglobin Sodium 148 H Potassium Chloride Carbon Dioxide BUN Creatinine 0.4 L Glucose 156 H POC Glucose 160 H Calcium AST Total Creatine Kinase Albumin Triglycerides Influenza A (Rapid) 10/31/19 10/31/19 10/31/19 04:42 08:02 16:24 WBC RBC Hgb Hct MCV MCH RDW Lymph % (Auto) [place] % (Auto) Lymph # Seg Neutrophils % Seg Neuts % (Manual) Monocytes % (Manual) Lymphocytes # (Manual) Monocytes # (Manual) POC ABG pH ABG pH POC ABG pCO2 62.2 H POC ABG pO2 76 L ABG pO2 ABG HCO3 ABG O2 Saturation ABG Base Excess ABG Hemoglobin Oxyhemoglobin Sodium 149 H Potassium Chloride Carbon Dioxide BUN Creatinine 0.4 L Glucose 146 H POC Glucose 143 H Calcium AST Total Creatine Kinase Albumin Triglycerides Influenza A (Rapid) 11/01/19 11/01/19 11/01/19 04:25 05:30 05:30 WBC RBC Hgb 9.7 L Hct 30.1 L MCV MCH 26 L RDW 21.6 H Lymph % (Auto) [place] % (Auto) Lymph # Seg Neutrophils % Seg Neuts % (Manual) Monocytes % (Manual) 10.0 H Lymphocytes # (Manual) Monocytes # (Manual) 0.9 H POC ABG pH ABG pH POC ABG pCO2 POC ABG pO2 ABG pO2 67.0 L ABG HCO3 38.2 H ABG O2 Saturation 94.2 L ABG Base Excess 11.8 H ABG Hemoglobin 10.7 L Oxyhemoglobin 91.6 L Sodium 147 H Potassium Chloride Carbon Dioxide 31 H BUN Creatinine 0.4 L Glucose 136 H POC Glucose Calcium AST Total Creatine Kinase Albumin Triglycerides Influenza A (Rapid) 11/01/19 11/02/19 11/02/19 10:32 22:46 23:02 WBC RBC Hgb Hct MCV MCH RDW Lymph % (Auto) [place] % (Auto) Lymph # Seg Neutrophils % Seg Neuts % (Manual) Monocytes % (Manual) Lymphocytes # (Manual) Monocytes # (Manual) POC ABG pH 7.465 H 7.522 H ABG pH POC ABG pCO2 56.8 H 50.0 H POC ABG pO2 71 L ABG pO2 ABG HCO3 ABG O2 Saturation ABG Base Excess ABG Hemoglobin Oxyhemoglobin Sodium Potassium Chloride Carbon Dioxide BUN Creatinine Glucose POC Glucose 126 H Calcium AST Total Creatine Kinase Albumin Triglycerides Influenza A (Rapid) 11/04/19 11/05/19 11/08/19 05:57 04:22 11:47 WBC RBC Hgb Hct MCV MCH RDW Lymph % (Auto) [place] % (Auto) Lymph # Seg Neutrophils % Seg Neuts % (Manual) Monocytes % (Manual) Lymphocytes # (Manual) Monocytes # (Manual) POC ABG pH ABG pH POC ABG pCO2 POC ABG pO2 ABG pO2 ABG HCO3 ABG O2 Saturation ABG Base Excess ABG Hemoglobin Oxyhemoglobin Sodium 148 H Potassium 3.1 L 3.4 L Chloride 97.4 L Carbon Dioxide 34 H 31 H BUN Creatinine 0.5 L 0.4 L Glucose 128 H 110 H POC Glucose 147 H Calcium AST Total Creatine Kinase Albumin Triglycerides Influenza A (Rapid) 11/10/19 11/14/19 11/14/19 09:50 04:50 04:50 WBC RBC Hgb 9.4 L Hct 29.9 L MCV MCH 25 L RDW 18.4 H Lymph % (Auto) [place] % (Auto) 8.1 H Lymph # Seg Neutrophils % Seg Neuts % (Manual) Monocytes % (Manual) Lymphocytes # (Manual) Monocytes # (Manual) POC ABG pH ABG pH POC ABG pCO2 POC ABG pO2 ABG pO2 57.9 L ABG HCO3 29.3 H ABG O2 Saturation 90.8 L ABG Base Excess 3.9 H ABG Hemoglobin Oxyhemoglobin 88.3 L Sodium Potassium Chloride Carbon Dioxide BUN 5 L Creatinine 0.3 L Glucose 113 H POC Glucose Calcium AST Total Creatine Kinase Albumin Triglycerides Influenza A (Rapid) Allied health notes reviewed: RT
--- NOTE | 2019-11-18 13:03 | Progress Note ---
Assessment and Plan /Acute hypoxemic respiratory failure. -Respiratory/tracheal aspirate reveals Enterobacter. The patient failed BiPAP and required intubation on 10/23/2019. Patient now extubated. On Oxygen by NC 2l/min. Pulmonary following. /Sepsis. Etiology secondary to pneumonia/influenza A. - Completed antibiotics per ID. /Influenza A. Completed high dose prolonged Tamiflu course. /Bilateral pneumonia. resp culture with GNR, patient treated with abx /Acute on chronic diastolic heart failure. - Echocardiogram revealed The left ventricular size is mildly dilated, mild to moderate concentric LVH, est EF 40-45%, left atrium is mildly dilated, trace MR, mild TR, mild to moderate Pulmonary hypertension, RVSP is calculated at 42 mmHg. /Obesity hypoventilation syndrome/DEAN. -Outpatient evaluation for sleep apnea /Morbid obesity. BMI is 83. - Weight loss and life style modifications on discharge. /Agitation on and off, now resolved. calm today, CT head could not be done because of body habitus. /physical Debility- PT eval ongoing Hopefully dc soon. PT recommendation: acute rehab, CM notified d/c pending on placement vs PT clearance Brief history: The patient is a 49-year-old female with morbid obesity, hypertension, lymphedema, functional quadriplegia and sleep apnea came into the emergency room with shortness of breath and hypoxia. She was started on BiPAP due to her respiratory failure. She was also found to have influenza A and was started empirically on treatment. The patient failed BiPAP and required intubation on 10/23/2019. Patient now extubated. waiting on PT clearance for discharge. Hospitalist Physical GEN: Not in acute distress, lying in bed, morbidly obese HEENT: Normocephalic, atraumatic, Neck: supple, No JVD Lungs: Clear to auscultation bilaterally, no wheeze, heart;S1 and S2 reg, no murmurs Abd:soft, non tender, non distended, normal bowel sounds Ext: No edema, no clubbing, no cyanosis Neuro: AAO X 3, no focal neurological signs, moves all ext Subjective Date of service: 11/15/19 Principal diagnosis: Ac. hypoxic-hypercapnic resp failure; Influenza; extreme obesity; ? DEAN Interval history: Patient seen and examined. Medical records and medication list reviewed. No acute event overnight noted by the RN. Patient denies any chest pain or difficulty breathing. Patient is tolerating diet. States her dizziness improved, PT recommended acute rehab Discussed plan of care at bedside with patient. discharge pending on placement or clearance from PT Subjective Date of service: 11/17/19 Principal diagnosis: acute respiratory distress Objective - Constitutional Vitals: Vital Signs - 12hr 11/18/19 11/18/19 08:00 08:14 Pulse Rate [ 100 H Anterior Bilateral Throughout] Respiratory 17 Rate [Anterior Bilateral Throughout] O2 Sat by Pulse 94 Oximetry - Labs CBC & Chem 7: 11/14/19 04:50 11/14/19 04:50
[2019-11-18] MEDS: guaiFENesin ER 600 MG TAB PO SCH (14:29)
[2019-11-18] MEDS: TAMSULOSIN 0.4 MG CAP PO SCH (14:29)
[2019-11-18] MEDS: PANTOPRAZOLE 40 MG TAB PO SCH (14:29)
[2019-11-18] MEDS: FERROUS SULFATE 325 MG TAB PO SCH (14:29)
[2019-11-18] MEDS: carvediloL 3.125 MG TAB PO SCH (14:32)
[2019-11-18 17:34] VITALS: BP 130/67
== END 2019-11-18 22:45 | disposition home health service (06) | DRG 870 ==
LOC: ED 20:34 → CC1 22:47 → 3A 11-02 16:11
PROVIDERS: ADMIT Internal Medicine Geriatric Medicine; ATTEND Internal Medicine
PROC: 5A09357 Assistance with Respiratory Ventilation, Less than 24 Consecutive Hours, Continuous Positive Airway Pressure (ICD-10-PCS; 2019-10-17)
PROC: 5A09357 Assistance with Respiratory Ventilation, Less than 24 Consecutive Hours, Continuous Positive Airway Pressure (ICD-10-PCS; 2019-10-18)
PROC: 5A09357 Assistance with Respiratory Ventilation, Less than 24 Consecutive Hours, Continuous Positive Airway Pressure (ICD-10-PCS; 2019-10-19)
PROC: 5A09357 Assistance with Respiratory Ventilation, Less than 24 Consecutive Hours, Continuous Positive Airway Pressure (ICD-10-PCS; 2019-10-20)
PROC: 5A09357 Assistance with Respiratory Ventilation, Less than 24 Consecutive Hours, Continuous Positive Airway Pressure (ICD-10-PCS; 2019-10-21)
PROC: 5A09357 Assistance with Respiratory Ventilation, Less than 24 Consecutive Hours, Continuous Positive Airway Pressure (ICD-10-PCS; 2019-10-22)
PROC: 5A1955Z Respiratory Ventilation, Greater than 96 Consecutive Hours (ICD-10-PCS; 2019-10-23)
PROC: 0BH17EZ Insertion of Endotracheal Airway into Trachea, Via Natural or Artificial Opening (ICD-10-PCS; 2019-10-23)
PROC: 5A09357 Assistance with Respiratory Ventilation, Less than 24 Consecutive Hours, Continuous Positive Airway Pressure (ICD-10-PCS; 2019-10-23)
PROC: 4A033R1 Measurement of Arterial Saturation, Peripheral, Percutaneous Approach (ICD-10-PCS; principal; 2019-11-01)
PROC: 5A09357 Assistance with Respiratory Ventilation, Less than 24 Consecutive Hours, Continuous Positive Airway Pressure (ICD-10-PCS; 2019-11-02)
PROC: 5A09357 Assistance with Respiratory Ventilation, Less than 24 Consecutive Hours, Continuous Positive Airway Pressure (ICD-10-PCS; 2019-11-04)
PROC: 5A09357 Assistance with Respiratory Ventilation, Less than 24 Consecutive Hours, Continuous Positive Airway Pressure (ICD-10-PCS; 2019-11-05)
PROC: 5A09357 Assistance with Respiratory Ventilation, Less than 24 Consecutive Hours, Continuous Positive Airway Pressure (ICD-10-PCS; 2019-11-06)
PROC: 5A09357 Assistance with Respiratory Ventilation, Less than 24 Consecutive Hours, Continuous Positive Airway Pressure (ICD-10-PCS; 2019-11-07)
PROC: 5A09357 Assistance with Respiratory Ventilation, Less than 24 Consecutive Hours, Continuous Positive Airway Pressure (ICD-10-PCS; 2019-11-08)
PROC: 5A09357 Assistance with Respiratory Ventilation, Less than 24 Consecutive Hours, Continuous Positive Airway Pressure (ICD-10-PCS; 2019-11-09)
PROC: 5A09357 Assistance with Respiratory Ventilation, Less than 24 Consecutive Hours, Continuous Positive Airway Pressure (ICD-10-PCS; 2019-11-10)
PROC: 5A09357 Assistance with Respiratory Ventilation, Less than 24 Consecutive Hours, Continuous Positive Airway Pressure (ICD-10-PCS; 2019-11-11)
PROC: 5A09357 Assistance with Respiratory Ventilation, Less than 24 Consecutive Hours, Continuous Positive Airway Pressure (ICD-10-PCS; 2019-11-12)
PROC: 5A09357 Assistance with Respiratory Ventilation, Less than 24 Consecutive Hours, Continuous Positive Airway Pressure (ICD-10-PCS; 2019-11-13)
PROC: 5A09357 Assistance with Respiratory Ventilation, Less than 24 Consecutive Hours, Continuous Positive Airway Pressure (ICD-10-PCS; 2019-11-14)
PROC: 5A09357 Assistance with Respiratory Ventilation, Less than 24 Consecutive Hours, Continuous Positive Airway Pressure (ICD-10-PCS; 2019-11-15)
PROC: 5A09357 Assistance with Respiratory Ventilation, Less than 24 Consecutive Hours, Continuous Positive Airway Pressure (ICD-10-PCS; 2019-11-16)
PROC: 5A09357 Assistance with Respiratory Ventilation, Less than 24 Consecutive Hours, Continuous Positive Airway Pressure (ICD-10-PCS; 2019-11-17)
PROC: 5A09357 Assistance with Respiratory Ventilation, Less than 24 Consecutive Hours, Continuous Positive Airway Pressure (ICD-10-PCS; 2019-11-18)
DX: A41.9 Sepsis, unspecified organism (principal); J10.00 Influenza due to other identified influenza virus with unspecified type of pneumonia; I50.33 Acute on chronic diastolic (congestive) heart failure; J96.22 Acute and chronic respiratory failure with hypercapnia; J96.21 Acute and chronic respiratory failure with hypoxia; R53.2 Functional quadriplegia; E66.2 Morbid (severe) obesity with alveolar hypoventilation; J90 Pleural effusion, not elsewhere classified; J81.1 Chronic pulmonary edema; Z68.45 Body mass index [BMI] 70 or greater, adult; I89.0 Lymphedema, not elsewhere classified; I11.0 Hypertensive heart disease with heart failure; Z83.3 Family history of diabetes mellitus; Z71.3 Dietary counseling and surveillance; Z80.8 Family history of malignant neoplasm of other organs or systems; Z79.82 Long term (current) use of aspirin
CPT/HCPCS: 36415; 36600; 36620; 71045; 74018; 80048; 80053; 82164; 82550; 82553; 82803; 82962; 83880; 84132; 84145; 84478; 84484; 85007; 85025; 85027; 86021; 86038; 86431; 87040; 87070; 87076; 87086; 87186; 87205; 87400; 93005; 93010; 93306; 94002; 94003; 94640; 94644; 94660; 94760; 96374; G0378; A6250; C9113; J0330; J0692; J0696; J1644; J1940; J2001; J2060; J2270; J2405; J2543; J2704; J2920; J2930; J3010; J3475; J7030; J7040; J7050; J7070